=== PATIENT | female | born 1950 | race Caucasian/White ===

== ENCOUNTER 2023-09-09 13:49 | Inpatient (IN) ==
--- NOTE | 2023-09-09 14:30 | Emergency Department Note ---
Impression & Plan Pneumonia, Failure of outpatient treatment, KAVITA (acute kidney injury), Elevated troponin, Anemia ED Provider Note NAME: NATANAEL MONTESINOS AGE: 73 SEX: F : 1950 ARRIVES VIA: Walk-In INFORMANT: [Patient][family] ED PROVIDER(S): [Jordi Levin MD] CHIEF COMPLAINT: Illness HISTORY OF PRESENT ILLNESS: The patient is a 73-year-old female who has been sick for about 2 weeks with a cough and some fatigue. She feels somewhat short of breath. Patient had a cold at first but things now seem to have moved to her chest. 1 week ago, the patient went to a physician's office and was diagnosed with a potential pneumonia. She was placed on Augmentin. A few days ago, she saw her doctors office and was placed on Zithromax in addition to the Augmentin. She was referred to the ER as she is not improving. The patient does feel groggy and sleepy. She was confused a week ago. The patient had been wheezing as per the family, this seems to have resolved. There has been no fever. No abdominal pain or vomiting. No urinary complaints. The family believes she did have a urine sample done last week, this did not grow anything on culture PMHx/PSHx/Social Hx: See Below PHYSICAL EXAM: GENERAL: Patient is in no acute distress. HEENT: No acute trauma, normocephalic atraumatic, mucous membranes moist, no nasal congestion. NECK: No stridor, no adenopathy, no meningismus, trachea is midline. LUNGS: Crackles at the right base, no wheezing or respiratory distress. HEART: Without murmurs gallops or rubs, regular rate and rhythm. ABDOMEN: Soft, nontender, no peritonitis. EXTREMITIES: No cyanosis, full range of motion of all the joints without pain or difficulty. NEUROLOGIC: Oriented x 3, no acute motor or sensory deficits, no focal weakness. SKIN: No jaundice, no diaphoresis. DIFFERENTIAL DIAGNOSIS: Pneumonia, bronchitis, viral illness, dehydration, failed outpatient management, PE, among others. EMERGENCY DEPARTMENT PROCEDURES: MEDICAL DECISION MAKING: There is a mild leukocytosis, this could be consistent with infection. The patient was anemic. Platelet count was slightly high at 509. There was no coagulopathy. VBG did not show acidosis. Potassium was low at 3.3. Acute kidney injury was seen with a creatinine of 3.35. Some subtle liver enzyme elevations were seen although, the bilirubin was normal. ECG showed a sinus rhythm, LVH was seen. Cardiac enzyme testing x 1 was slightly elevated. This troponin elevation could be secondary to her dyspnea and renal failure or possibly, cardiac ischemia. Chest x-ray did not show pneumonia or CHF. Respiratory bio fire was completely negative. Chest CT does show patchy bilateral pneumonia. Abdominal and pelvis CT did not show any findings of acute urinary obstruction. Some cysts were seen in the kidneys. The patient received IV saline, 500 cc. She was given 2 g of IV cefepime as empiric antibiotic coverage. Patient presents with worsening symptoms despite Augmentin and Zithromax as an outpatient. She was found to have pneumonia on CT imaging. She appears also to have some acute kidney injury. There is an elevation to her cardiac troponin. Given her failed outpatient treatment, given her findings, hospitalization/further workup is warranted. Presently, she does not appear safe for discharge home. I spoke with the patient and case management, I spoke with her family. The on- call hospitalist was consulted. Prior/Outside records/notes reviewed: None ECG per my interpretation: Indication was weakness. The ECG shows a normal sinus rhythm with a rate of 76. There is some baseline artifact. LVH is seen. There is no acute ST elevation, no PVCs. The QTc is 443. Continuous Cardiac Monitoring per my interpretation: An order was placed for continuous cardiac monitoring. The monitor shows a rate of 76 with normal sinus rhythm. Imaging/x-ray results per my interpretation: Chest x-ray does not show mediastinal widening, obvious pneumonia or pneumothorax. Chronic Medical/Social conditions affecting care: Advanced age. Care/Management discussed with: Case management, the on-call hospitalist. Level of care consideration(s): After review of the information above and other included data: --I believe the patient requires escalation of care to admission DISPOSITION: Admission Past Med/Surg History Problem List Anemia (Acute) Elevated troponin (Acute) KAVITA (acute kidney injury) (Acute) Failure of outpatient treatment (Acute) Pneumonia (Acute) Medical History Depression Type 2 diabetes mellitus Surgical History No pertinent past surgical history Family History Other No pertinent family history Social History Smoking Status: Never smoker Preferred Language: Bulgarian Feels Safe at Home: Yes Allergies Allergies Allergy/AdvReac Type Severity Reaction Status Date / Time No Known Allergies Allergy Verified 09/09/23 15:55 Home Meds Home Medications Medication Instructions Recorded Confirmed aspirin 81 mg tablet,delayed 81 mg PO QAM 03/13/19 09/09/23 release cyanocobalamin (vitamin B-12) 500 500 mcg PO QAM 03/13/19 09/09/23 mcg tablet (Vitamin B-12) gabapentin 600 mg tablet 600 mg PO BID 03/13/19 09/09/23 insulin glargine U-300 conc 300 16 unit subcut QAM 03/13/19 09/09/23 unit/mL (3 mL) subcutaneous pen (Toujeo Max U-300 SoloStar) insulin lispro 100 unit/mL 18 unit subcut TIDM 03/13/19 09/09/23 subcutaneous pen (Humalog KwikPen (U-100) Insulin) acetaminophen 325 mg tablet 325 mg PO Q6H PRN Pain 09/09/23 09/09/23 (Tylenol) amlodipine 5 mg tablet 5 mg PO QPM 09/09/23 09/09/23 amoxicillin 500 mg-potassium 1 tab PO BID 09/09/23 09/09/23 clavulanate 125 mg tablet azithromycin 250 mg tablet 250 mg PO DAILY 09/09/23 09/09/23 cholecalciferol (vitamin D3) 125 125 mcg PO DAILY 09/09/23 09/09/23 mcg (5,000 unit) tablet (Vitamin D3) fluoxetine 40 mg capsule 40 mg PO QAM 09/09/23 09/09/23 fluticasone propionate 50 2 spray intranasal DAILY 09/09/23 09/09/23 mcg/actuation nasal spray,suspension omega-3 fatty acids 1,000 mg 1,000 mg PO QAM 09/09/23 09/09/23 capsule oxybutynin chloride 5 mg tablet 5 mg PO QAM 09/09/23 09/09/23 rosuvastatin 10 mg tablet 10 mg PO QPM 09/09/23 09/09/23 telmisartan 80 mg tablet 80 mg PO QAM 09/09/23 09/09/23 Results & Data (ED) Vital Signs Vital Signs - 24 hr 09/09/23 13:51 09/09/23 14:09 09/09/23 14:15 Temperature 36.5 C Temperature Source Temporal Artery Scan Pulse Rate 80 73 Pulse Rate [Apical] 71 Respiratory Rate 18 20 Respiratory Effort / Characteristics Non-Labored Spontaneous Non-Labored Spontaneous Respiratory Depth Normal Normal Respiratory Pattern Regular Blood Pressure 135/70 Blood Pressure [Right Arm] 132/72 Blood Pressure Mean 91 Blood Pressure Mean [Right Arm] 92 Blood Pressure Position [Right Arm] Lying Pulse Oximetry 94 94 Oxygen Delivery Method Room Air Room Air Sepsis Recent Fever Within 48 Hours No Sepsis New/Unexplained Change in Mental Status N/A Sepsis Action Taken by Nursing No Action Required 09/09/23 16:00 Temperature Temperature Source Pulse Rate Pulse Rate [Apical] 79 Respiratory Rate 20 Respiratory Effort / Characteristics Respiratory Depth Respiratory Pattern Blood Pressure Blood Pressure [Right Arm] 188/103 H Blood Pressure Mean Blood Pressure Mean [Right Arm] 131 Blood Pressure Position [Right Arm] Pulse Oximetry 93 Oxygen Delivery Method Room Air Sepsis Recent Fever Within 48 Hours Sepsis New/Unexplained Change in Mental Status Sepsis Action Taken by Prison Medications Current Medication List: was personally reviewed by me Laboratory Data Attestation: I reviewed the patient's lab results. 09/09/23 14:09 09/09/23 14:09 Lab Results 09/09/23 09/09/23 Range/Units 14:09 14:37 WBC 12.69 H (4.8-10.8) K/ul RBC 3.66 L (4.20-5.40) M/uL Hgb 10.6 L (12.0-16.0) g/dl Hct 33.0 L (37.0-47.0) % MCV 90.2 (80.0-100.0) fL MCH 29.0 (25.0-34.0) pg MCHC 32.1 (32.0-36.0) g/dL RDW Std Deviation 46.1 (36.4-46.3) fL RDW Coeff of Aure 13.9 (11.5-14.5) % Plt Count 509 H (130-400) K/uL MPV 8.6 L (9.4-12.4) fL Immature Gran % (Auto) 1.3 % Neut % (Auto) 82.7 % Lymph % (Auto) 9.1 % [place] % (Auto) 4.4 % Eos % (Auto) 2.0 % Baso % (Auto) 0.5 % Neut # (Auto) 10.50 H (1.40-6.50) K/uL Lymph # (Auto) 1.15 L (1.20-3.40) K/uL [place] # (Auto) 0.56 (0.11-0.59) K/uL Eos # (Auto) 0.25 (0.00-0.50) K/uL Baso # (Auto) 0.06 (0.00-0.20) K/uL Immature Gran # (Auto) 0.17 (0.01-0.20) K/uL PT 10.4 (9.0-12.0) Seconds INR 1.0 (0.9-1.1) APTT 27 (21-31) Seconds PTT Ratio 1.0 VBG pH 7.37 (7.36-7.41) VBG pCO2 44 (38-50) mmHg VBG pO2 42 mmHg VBG HCO3 25 mmol/L VBG O2 Saturation 79.5 % VBG Base Excess -0.2 mEq/L Sodium 137 (136-145) mmol/L Potassium 3.3 L (3.5-5.1) mmol/L Chloride 103 (98-107) mmol/L Carbon Dioxide 24 (21-32) mmol/L Anion Gap 10 (3-11) BUN 39 H (6-23) mg/dl Creatinine 3.35 H (0.6-1.2) mg/dl Est Cr Clr Drug Dosing Not Reportable Est GFR ( Amer) 14.9 ml/min Est GFR (Non-Af Amer) 12.9 ml/min BUN/Creatinine Ratio 11.6 (10-20) Glucose 157 H (70-99(Fasting)) mg/dl Calcium 8.8 (8.6-10.3) mg/dl Magnesium 1.9 (1.7-2.4) mg/dl Total Bilirubin 0.3 (0.2-1.0) mg/dl AST 40 H (13-39) U/L ALT 32 (7-52) U/L Alkaline Phosphatase 175 H (34-104) U/L Troponin I High Sens 94.8 H* (0-14) pg/ml Total Protein 6.6 (6.0-8.3) gm/dl Albumin 3.0 L (3.4-5.0) gm/dl Globulin 3.6 (2.5-4.0) gm/dl Albumin/Globulin Ratio 0.8 L (0.9-2) Adenovirus (PCR) Not Detected (NotDetected) B. pertussis DNA (PCR) Not Detected (NotDetected) B.parapertussis DNA PCR Not Detected (NotDetected) C. pneumoniae DNA (PCR) Not Detected (NotDetected) Coronavirus OC43 (PCR) Not Detected (NotDetected) Coronavirus HKU1 (PCR) Not Detected (NotDetected) Coronavirus 229E (PCR) Not Detected (NotDetected) SARS-CoV-2 (PCR) Not Detected (NotDetected) Coronavirus NL63 (PCR) Not Detected (NotDetected) Human Metapneumovir PCR Not Detected (NotDetected) Influenza Type A (PCR) Not Detected (NotDetected) Influenza Type B (PCR) Not Detected (NotDetected) M. pneumoniae (PCR) Not Detected (NotDetected) Parainfluenza 1 (PCR) Not Detected (NotDetected) Parainfluenza 2 (PCR) Not Detected (NotDetected) Parainfluenza 3 (PCR) Not Detected (NotDetected) Parainfluenza 4 (PCR) Not Detected (NotDetected) RSV (PCR) Not Detected (NotDetected) Entero/Rhino (PCR) Not Detected (NotDetected) Imaging Data Radiologist's Impression: Chest X-Ray 09/09/23 14:23 XR chest 1V portable HISTORY: Dyspnea COMPARISON: None. FINDINGS: The lungs are clear. Cardiac silhouette is normal in size. No pleural effusions. No pneumothorax. IMPRESSION: No acute process. ACT 112: Negative or not required by law. Electronically signed by: Mitchel Anna M.D. 09/09/2023 3:[address] 09/09/23 14:58 CT chest diagnostic wo con CT DOSE: 1486.66 mGy.cm HISTORY: Shortness of breath. TECHNIQUE: Multiaxial CT images of the chest were performed without contrast. A dose lowering technique was utilized adhering to the principles of ALARA. COMPARISON: None. FINDINGS: The central airways are patent. No pneumothorax. There is a trace left pleural effusion. There are small patchy airspace opacities within the bases of the bilateral lower lobes. This most pronounced within the left lower lobe. There are few additional scattered small groundglass and tree-in-bud nodular opacities within the lungs. Findings suggest a mild atypical/viral pneumonitis. Degenerative changes within the mid to lower thoracic spine. No acute fractures. The abdominal structures will be reported on the same day abdomen and pelvis CT. There is a small hiatus hernia. Otherwise, normal esophagus. The heart is normal in size. No pericardial effusion. No mediastinal or hilar lymphadenopathy. Mild calcified plaque within the normal caliber thoracic aorta. There are mild to moderate coronary artery calcifications noted. IMPRESSION: 1. Scattered bilateral airspace opacities most pronounced within the left lower lobe. This favors a mild atypical/viral pneumonitis. 3-[address] follow- up recommended to ensure resolution. 2. Trace left pleural effusion. 3. Small hiatus hernia. ACT 112: Positive. There are findings on this exam that require communication between the performing entity and the patient following Patient Test Result Information Act ([place] Act 112) guidelines. Electronically signed by: Mitchel Anna M.D. 09/09/2023 4:09 PM Abdomen/Pelvis CT 09/09/23 15:[address] WITHOUT CONTRAST CT DOSE: HISTORY: high creat, poss obstruction TECHNIQUE: Multiaxial CT images of the abdomen and pelvis were performed without contrast. A dose lowering technique was utilized adhering to the principles of ALARA. COMPARISON STUDY: None. FINDINGS: The lung bases will be reported on the same day chest CT. No pneumoperitoneum. No pneumatosis. No acute fractures identified. There is a small hiatus hernia. There is a tiny fat-containing umbilical hernia. The unenhanced liver, gallbladder, and spleen are unremarkable. There are few punctate calcifications within the pancreas. No CT evidence for acute pancreatitis. Mild nodular thickening of the adrenal glands. Calcified plaque within the normal caliber abdominal aorta. There is a 4 mm stone within the lower pole of the right kidney. No left renal calculi. No ureteral calculi. No hydronephrosis. Multiple bilateral renal hypo and hyperdense lesions are noted. These are incompletely characterized on this noncontrast study. These may represent a combination of simple and hyperdense cysts. However, a solid renal mass would be impossible to exclude on this noncontrast study. Dominant left renal lesion measures 5.5 cm. Dominant right renal lesion measures 4.1 cm. No retroperitoneal or pelvic lymphadenopathy. No pelvic free fluid. Normal bladder. Prior hysterectomy. Suboptimal evaluation for bowel pathology due to the lack of intravenous and oral contrast. However, there is no definite bowel wall thickening or obstruction. Colonic diverticulosis. No evidence for acute diverticulitis. Normal appendix. IMPRESSION: 1. Right-sided nephrolithiasis. No ureteral stones. No hydronephrosis. 2. No definite bowel wall thickening or obstruction. 3. Colonic diverticulosis. No evidence for acute diverticulitis. 4. The lung bases will be reported on the same day chest CT. 5. Multiple bilateral renal hypo and hyperdense lesions are noted. These are incompletely characterized on this noncontrast study. These may represent a combination of simple and hyperdense cysts. However, a solid renal mass would be impossible to exclude on this noncontrast study. Therefore, follow-up nonemergent renal ultrasound recommended for further evaluation. 6. Additional findings as described above. ACT 112: Positive. There are findings on this exam that require communication between the performing entity and the patient following Patient Test Result Information Act [place] Act 112) guidelines. Electronically signed by: Mtichel Anna M.D. 09/09/2023 4:16 PM Discharge Plan Visit Data Chief Complaint: Illness Stated Complaint: POSSIBLE PNEUMONIA, BACK PAIN, LETHARGIC ED Provider: Jordi Levin Discharge Problem: Pneumonia, Failure of outpatient treatment, KAVITA (acute kidney injury), Elevated troponin, Anemia Patient Disposition: Admitted As Inpatient Condition: Fair Forms Stand Alone Forms: [employer] Prescriptions Prescriptions: No Action gabapentin 600 mg tablet 600 mg PO BID aspirin 81 mg Tablet,Delayed Release (Dr/Ec) 81 mg PO QAM cyanocobalamin (vitamin B-12) [Vitamin B-12] 500 mcg Tablet 500 mcg PO QAM insulin lispro [Humalog KwikPen Insulin] 100 unit/mL insulin pen 18 unit SUBCUT TIDM insulin glargine U-300 conc [Toujeo Max U-300 SoloStar] 300 unit/mL (3 mL) insulin pen 16 unit SUBCUT QAM fluoxetine 40 mg capsule 40 mg PO QAM acetaminophen [Tylenol] 325 mg Tablet 325 mg PO Q6H PRN (Reason: Pain) omega-3 fatty acids 1,000 mg Capsule 1,000 mg PO QAM azithromycin 250 mg tablet 250 mg PO DAILY Rx Instructions: STARTED 09/07/23 FOR 5 DAYS. amlodipine 5 mg tablet 5 mg PO QPM telmisartan 80 mg tablet 80 mg PO QAM oxybutynin chloride 5 mg tablet 5 mg PO QAM fluticasone propionate [Flonase] 50 mcg/actuation [place],Suspension 2 spray INTRANASAL DAILY Rx Instructions: administer into each nostril amoxicillin-pot clavulanate 500-125 mg tablet 1 tab PO BID Rx Instructions: STARTED 09/02/23 FOR 10 DAYS rosuvastatin 10 mg tablet 10 mg PO QPM cholecalciferol (vitamin D3) [Vitamin D3] 125 mcg (5,000 unit) Tablet 125 mcg PO DAILY Referrals Referrals: Ghada Salazar MD [Primary Care Provider] - Discharge Problem: Pneumonia Qualifiers: Pneumonia type: due to unspecified organism Laterality: bilateral Lung location: unspecified part of lung Qualified Code(s): J18.9 - Pneumonia, unspecified organism Anemia Qualifiers: Anemia type: unspecified type Qualified Code(s): D64.9 - Anemia, unspecified
[2023-09-09 14:43] LABS: Basophils # (auto) 0.06 K/uL (0.00-0.20); Basophils % (auto) 0.5 %; Eosinophils # (auto) 0.25 K/uL (0.00-0.50); Hemoglobin 10.6 g/dl (12.0-16.0); Immature Granulocytes # (auto) 0.17 K/uL (0.01-0.20); Immature Granulocytes % (auto) 1.3 %; Lymphocytes # (auto) 1.15 K/uL (1.20-3.40); Lymphocytes % (auto) 9.1 %; Mean Corpuscular Hgb Conc 32.1 g/dL (32.0-36.0); Mean Corpuscular Volume 90.2 fL (80.0-100.0); Mean Platelet Volume 8.6 fL (9.4-12.4); Monocytes # (auto) 0.56 K/uL (0.11-0.59); Monocytes % (auto) 4.4 %; Neutrophils % (auto) 82.7 %; Platelet Count 509 K/uL (130-400); RDW Coefficient of Variation 13.9 % (11.5-14.5); RDW Standard Deviation 46.1 fL (36.4-46.3); Red Blood Count 3.66 M/uL (4.20-5.40); White Blood Count 12.69 K/ul (4.8-10.8)
[2023-09-09 14:47] LABS: Base Excess VBG -0.2 mEq/L; HCO3 VBG 25 mmol/L; Oxygen Saturation VBG 79.5 %; PCO2 VBG 44 mmHg (38-50); PO2 VBG 42 mmHg; pH VBG 7.37 (7.36-7.41)
[2023-09-09 14:50] LABS: Alanine Aminotransferase 32 U/L (7-52); Albumin Globulin Ratio 0.8 (0.9-2); Alkaline Phosphatase 175 U/L (34-104); Anion Gap 10 (3-11); Aspartate Aminotransferase 40 U/L (13-39); BUN Creatinine Ratio 11.6 (10-20); Bilirubin,Total 0.3 mg/dl (0.2-1.0); Blood Urea Nitrogen 39 mg/dl (6-23); Calcium 8.8 mg/dl (8.6-10.3); Carbon Dioxide 24 mmol/L (21-32); Chloride 103 mmol/L (98-107); Est GFR (African American) 14.9 ml/min; Est GFR (Non-African American) 12.9 ml/min; Globulin 3.6 gm/dl (2.5-4.0); Glucose 157 mg/dl (70-99(Fasting)); Magnesium 1.9 mg/dl (1.7-2.4); Potassium 3.3 mmol/L (3.5-5.1); Sodium 137 mmol/L (136-145); Total Protein 6.6 gm/dl (6.0-8.3)
[2023-09-09 15:04] LABS: Troponin I High Sensitivity 94.8 pg/ml (0-14)
[2023-09-09 15:10] LABS: Partial Thromboplastin Time 27 Seconds (21-31); Prothrombin Time 10.4 Seconds (9.0-12.0)
--- NOTE | 2023-09-09 15:40 | XRay Report ---
XR chest 1V portable HISTORY: Dyspnea COMPARISON: None. FINDINGS: The lungs are clear. Cardiac silhouette is normal in size. No pleural effusions. No pneumot horax. IMPRESSION: No acute process. ACT 112: Negative or not required by law. Electronically signed by: Mitchel Anna M.D. 09/09/2023 3:39 PM
[2023-09-09 15:42] LABS: Adenovirus PCR Not Detected (NotDetected); Bordetella parapertussis PCR Not Detected (NotDetected); Bordetella pertussis PCR Not Detected (NotDetected); Chlamydia pneumoniae PCR Not Detected (NotDetected); Coronavirus 229E PCR Not Detected (NotDetected); Coronavirus CoV-2 (COVID19)PCR Not Detected (NotDetected); Coronavirus HKU1 PCR Not Detected (NotDetected); Coronavirus NL63 PCR Not Detected (NotDetected); Coronavirus OC43PCR Not Detected (NotDetected); Human Metapneumovirus PCR Not Detected (NotDetected); Influenza A PCR Not Detected (NotDetected); Influenza B PCR Not Detected (NotDetected); Mycoplasma pneumoniae PCR Not Detected (NotDetected); Parainfluenza Virus 1 PCR Not Detected (NotDetected); Parainfluenza Virus 2 PCR Not Detected (NotDetected); Parainfluenza Virus 3 PCR Not Detected (NotDetected); Parainfluenza Virus 4 PCR Not Detected (NotDetected); Respiratory Syncytial VirusPCR Not Detected (NotDetected); Rhinovirus/Enterovirus PCR Not Detected (NotDetected)
--- NOTE | 2023-09-09 16:11 | CT Scan Report ---
CT chest diagnostic wo con CT DOSE: 1486.66 mGy.cm HISTORY: Shortness of breath. TECHNIQUE: Multiaxial CT images of the chest were performed without contrast. A dose lowering techni que was utilized adhering to the principles of ALARA. COMPARISON: None. FINDINGS: The central airways are patent. No pneumothorax. There is a trace left pleural effusion. Th ere are small patchy airspace opacities within the bases of the bilateral lower lobes. This most pron ounced within the left lower lobe. There are few additional scattered small groundglass and tree-in-b ud nodular opacities within the lungs. Findings suggest a mild atypical/viral pneumonitis. Degenerati ve changes within the mid to lower thoracic spine. No acute fractures. The abdominal structures will be reported on the same day abdomen and pelvis CT. There is a small hiatus hernia. Otherwise, normal esophagus. The heart is normal in size. No pericardial effusion. No mediastinal or hilar lymphadenopa thy. Mild calcified plaque within the normal caliber thoracic aorta. There are mild to moderate coron magy artery calcifications noted. IMPRESSION: 1. Scattered bilateral airspace opacities most pronounced within the left lower lobe. This favors a m ild atypical/viral pneumonitis. 3-[address] follow-up recommended to ensure resolution. 2. Trace left pleural effusion. 3. Small hiatus hernia. ACT 112: Positive. There are findings on this exam that require communication between the performing entity and the patient following Patient Test Result Information Act ([place] Act 112) guidelines. Electronically signed by: Mitchel Anna M.D. 09/09/2023 4:09 PM
--- NOTE | 2023-09-09 16:18 | CT Scan Report ---
ABDOMEN AND PELVIS CT WITHOUT CONTRAST CT DOSE: HISTORY: high creat, poss obstruction TECHNIQUE: Multiaxial CT images of the abdomen and pelvis were performed without contrast. A dose lo wering technique was utilized adhering to the principles of ALARA. COMPARISON STUDY: None. FINDINGS: The lung bases will be reported on the same day chest CT. No pneumoperitoneum. No pneumatos is. No acute fractures identified. There is a small hiatus hernia. There is a tiny fat-containing umb ilical hernia. The unenhanced liver, gallbladder, and spleen are unremarkable. There are few punctate calcifications within the pancreas. No CT evidence for acute pancreatitis. Mild nodular thickening o f the adrenal glands. Calcified plaque within the normal caliber abdominal aorta. There is a 4 mm sto ne within the lower pole of the right kidney. No left renal calculi. No ureteral calculi. No hydronep hrosis. Multiple bilateral renal hypo and hyperdense lesions are noted. These are incompletely charac terized on this noncontrast study. These may represent a combination of simple and hyperdense cysts. However, a solid renal mass would be impossible to exclude on this noncontrast study. Dominant left r enal lesion measures 5.5 cm. Dominant right renal lesion measures 4.1 cm. No retroperitoneal or pelvi c lymphadenopathy. No pelvic free fluid. Normal bladder. Prior hysterectomy. Suboptimal evaluation fo r bowel pathology due to the lack of intravenous and oral contrast. However, there is no definite bow el wall thickening or obstruction. Colonic diverticulosis. No evidence for acute diverticulitis. Norm al appendix. IMPRESSION: 1. Right-sided nephrolithiasis. No ureteral stones. No hydronephrosis. 2. No definite bowel wall thickening or obstruction. 3. Colonic diverticulosis. No evidence for acute diverticulitis. 4. The lung bases will be reported on the same day chest CT. 5. Multiple bilateral renal hypo and hyperdense lesions are noted. These are incompletely characteriz ed on this noncontrast study. These may represent a combination of simple and hyperdense cysts. Howev er, a solid renal mass would be impossible to exclude on this noncontrast study. Therefore, follow-up nonemergent renal ultrasound recommended for further evaluation. 6. Additional findings as described above. ACT 112: Positive. There are findings on this exam that require communication between the performing entity and the patient following Patient Test Result [place] Act [place] Act 112) guidelines. Electronically signed by: Mitchel Anna M.D. 09/09/2023 4:16 PM
--- NOTE | 2023-09-09 17:21 | History & Physical Report ---
Date of Service September 09, 2023 Assessment & Plan (1) Pneumonia: Plan: This is a 73-year-old female with PMH of type 2 diabetes, dyslipidemia, BMI of 40, CKD stage IV, major depressive disorder, vertigo and other medical problems listed below who presents with ongoing shortness of breath x 2 weeks with pneumonia diagnosed in outpatient setting that has failed outpatient treatment. Cough and congestion x 3 weeks Started on Augmentin 09/01, azythromycin added 09/06, continues to feel fatigued with cough Afebrile, WBC 12K, procal neg, resp viral panel negative, MRSA swab pending CT abd/pelvis with scattered bilateral airspace opacities most pronounced within the left lower lobe. This favors a mild atypical/viral pneumonitis. 3-[address] follow-up recommended to ensure resolution Continue cefepime, doxy Mucinex BID, flutter valve (2) Acute kidney injury superimposed on CKD: Plan: Cr 3.35 (baseline ~ 2.0) Recent outpatient UA from 09/05 with >300 mg/dl protein, trace blood. Albumin/Cr ratio 2,270, Protein/Cr ratio 4,057 Given gentle fluids in ED, poor PO intake while sick Follows with Dr. Tovar in clinic Nephrology consulted (3) Hypertensive urgency: Plan: BP initially normal, slowly elevating in ED with 188/95 - admittedly nervous in ED. Will give evening dose of amlodipine 5mg, add PRN IV hydralazine. Continue to monitor closely (4) Elevated troponin: Plan: Troponin 94.8 -> 90. Will repeat again Likely 2/2 elevated BP as above, CKD 2D echo ordered (5) Type 2 diabetes mellitus: Plan: A1c 7.6 Hold home agents Basal/bolus insulin while in-patient BSG AC HS (6) Depression: Plan: Continue fluoxetine DVT Ppx: SQ heparin Code status: FULL PCP: Martin Dispo: Admitted to PCU Patient seen in collaboration with Dr. Pittman. Please see addendum. I spent a total of 75 minutes coordinating, documenting, and providing care for this patient excluding time spent in the performance of separately billed services. History of Present Illness Chief Complaint: Shortness of breath Primary Care Provider: Ghada Salazar MD This is a 73-year-old female with PMH of type 2 diabetes, dyslipidemia, BMI of 40, CKD stage IV, major depressive disorder, vertigo and other medical problems listed below who presents with ongoing shortness of breath x 2 weeks. Had been having productive cough and generalized weakness as well is some wheezing. Was seen in PCP office on 09/01 with cough and cold symptoms and was started on a 10- day course of Augmentin. Outpatient chest x-ray from 09/01 showed left basilar airspace opacities. Was seen again by PCP on 09/07/2023 with continued cough as well as some confusion. Azithromycin was added for better atypical coverage. Patient was then noted to be confused and directed to come to ED for further evaluation. Daughter notes she is groggy. Also noting some pain in her back. Chronic hip pain over the past few months and was seen by ortho for a cortisone shot. Has followed with Dr. Tovar for nephrology back in Jan 2023 and is due to see again in September. Baseline Cr ~ 2. 1. No F/C, lightheadedness, CP, N/V, abd pain, dysuria, diarrhea or constipation. Allergies Allergy/AdvReac Type Severity Reaction Status Date / Time No Known Allergies Allergy Verified 09/09/23 15:55 Home Medications Medication Instructions Recorded Confirmed Type aspirin 81 mg tablet,delayed 81 mg PO QAM 03/13/19 09/09/23 History release cyanocobalamin (vitamin B-12) 500 500 mcg PO QAM 03/13/19 09/09/23 History mcg tablet (Vitamin B-12) gabapentin 600 mg tablet 600 mg PO BID 03/13/19 09/09/23 History insulin glargine U-300 conc 300 16 unit subcut QAM 03/13/19 09/09/23 History unit/mL (3 mL) subcutaneous pen (Toujeo Max U-300 SoloStar) insulin lispro 100 unit/mL 18 unit subcut TIDM 03/13/19 09/09/23 History subcutaneous pen (Humalog KwikPen (U-100) Insulin) acetaminophen 325 mg tablet 325 mg PO Q6H PRN Pain 09/09/23 09/09/23 History (Tylenol) amlodipine 5 mg tablet 5 mg PO QPM 09/09/23 09/09/23 History amoxicillin 500 mg-potassium 1 tab PO BID 09/09/23 09/09/23 History clavulanate 125 mg tablet azithromycin 250 mg tablet 250 mg PO DAILY 09/09/23 09/09/23 History cholecalciferol (vitamin D3) 125 125 mcg PO DAILY 09/09/23 09/09/23 History mcg (5,000 unit) tablet (Vitamin D3) fluoxetine 40 mg capsule 40 mg PO QAM 09/09/23 09/09/23 History fluticasone propionate 50 2 spray intranasal DAILY 09/09/23 09/09/23 History mcg/actuation nasal spray,suspension omega-3 fatty acids 1,000 mg 1,000 mg PO QAM 09/09/23 09/09/23 History capsule oxybutynin chloride 5 mg tablet 5 mg PO QAM 09/09/23 09/09/23 History rosuvastatin 10 mg tablet 10 mg PO QPM 09/09/23 09/09/23 History telmisartan 80 mg tablet 80 mg PO QAM 09/09/23 09/09/23 History Past Med/Surg History Problem List Hypertensive urgency Depression Type 2 diabetes mellitus Acute kidney injury superimposed on CKD Anemia (Acute) Elevated troponin (Acute) Failure of outpatient treatment (Acute) Pneumonia (Acute) Surgical History History of nasal surgery Family History Other Breast cancer No pertinent family history Social History Smoking Status: Never smoker Second Hand Exposure: No; Do You Dip or Chew Tobacco: No; Tobacco Cessation Education Requested by Patient: No Hx Alcohol Use: No Hx Substance Use: No Preferred Language: Greenlandic Communication Ability: Effective Compressor Repairer Required: No Beliefs That Will Affect Care: None Current Living Situation: Alone Current Living Situation Comment: Lives at home alone - has assitance with a home health aid and daughter Other Information That Helps Us Care for You: No Feels Safe at Home: Yes Safety Concerns: Feels Safe At This Time Review of Systems Review of Systems: At least ten systems reviewed and negative except as noted in the HPI. Physical Exam Physical Exam: Please see Dr. Pittman's addendum for physical exam. Results & Data Results & Data Vital Signs (Past 12 Hours) Vital Signs Temp Pulse Pulse Resp BP BP Pulse Ox 09/09/23 16:00 79 20 188/103 H 93 09/09/23 14:15 73 09/09/23 14:09 71 20 132/72 94 09/09/23 13:51 36.5 C 80 18 135/70 94 O2 Del Method 09/09/23 16:00 Room Air 09/09/23 14:15 09/09/23 14:09 Room Air 09/09/23 13:51 Room Air Laboratory Results Short CBC 09/09/23 Range/Units 14:09 WBC 12.69 H (4.8-10.8) K/ul Hgb 10.6 L (12.0-16.0) g/dl Hct 33.0 L (37.0-47.0) % Plt Count 509 H (130-400) K/uL BMP 09/09/23 14:09 Sodium 137 Potassium 3.3 L Chloride 103 Carbon Dioxide 24 BUN 39 H Creatinine 3.35 H Glucose 157 H Calcium 8.8 Liver Function 09/09/23 Range/Units 14:09 Total Bilirubin 0.3 (0.2-1.0) mg/dl AST 40 H (13-39) U/L ALT 32 (7-52) U/L Alkaline Phosphatase 175 H (34-104) U/L Albumin 3.0 L (3.4-5.0) gm/dl Diagnostic Findings Chest X-Ray 09/09/23 14:23 XR chest 1V portable HISTORY: Dyspnea COMPARISON: None. FINDINGS: The lungs are clear. Cardiac silhouette is normal in size. No pleural effusions. No pneumothorax. IMPRESSION: No acute process. ACT 112: Negative or not required by law. Electronically signed by: Mitchel Anna M.D. 09/09/2023 3:[address] 09/09/23 14:58 CT chest diagnostic wo con CT DOSE: 1486.66 mGy.cm HISTORY: Shortness of breath. TECHNIQUE: Multiaxial CT images of the chest were performed without contrast. A dose lowering technique was utilized adhering to the principles of ALARA. COMPARISON: None. FINDINGS: The central airways are patent. No pneumothorax. There is a trace left pleural effusion. There are small patchy airspace opacities within the bases of the bilateral lower lobes. This most pronounced within the left lower lobe. There are few additional scattered small groundglass and tree-in-bud nodular opacities within the lungs. Findings suggest a mild atypical/viral pneumonitis. Degenerative changes within the mid to lower thoracic spine. No acute fractures. The abdominal structures will be reported on the same day abdomen and pelvis CT. There is a small hiatus hernia. Otherwise, normal esophagus. The heart is normal in size. No pericardial effusion. No mediastinal or hilar lymphadenopathy. Mild calcified plaque within the normal caliber thoracic aorta. There are mild to moderate coronary artery calcifications noted. IMPRESSION: 1. Scattered bilateral airspace opacities most pronounced within the left lower lobe. This favors a mild atypical/viral pneumonitis. 3-[address] follow- up recommended to ensure resolution. 2. Trace left pleural effusion. 3. Small hiatus hernia. ACT 112: Positive. There are findings on this exam that require communication between the performing entity and the patient following Patient Test Result Information Act ([place] Act 112) guidelines. Electronically signed by: Mitchel Anna M.D. 09/09/2023 4:09 PM Abdomen/Pelvis CT 09/09/23 15:[address] WITHOUT CONTRAST CT DOSE: HISTORY: high creat, poss obstruction TECHNIQUE: Multiaxial CT images of the abdomen and pelvis were performed without contrast. A dose lowering technique was utilized adhering to the principles of ALARA. COMPARISON STUDY: None. FINDINGS: The lung bases will be reported on the same day chest CT. No pneumoperitoneum. No pneumatosis. No acute fractures identified. There is a small hiatus hernia. There is a tiny fat-containing umbilical hernia. The unenhanced liver, gallbladder, and spleen are unremarkable. There are few punctate calcifications within the pancreas. No CT evidence for acute pancreatitis. Mild nodular thickening of the adrenal glands. Calcified plaque within the normal caliber abdominal aorta. There is a 4 mm stone within the lower pole of the right kidney. No left renal calculi. No ureteral calculi. No hydronephrosis. Multiple bilateral renal hypo and hyperdense lesions are noted. These are incompletely characterized on this noncontrast study. These may represent a combination of simple and hyperdense cysts. However, a solid renal mass would be impossible to exclude on this noncontrast study. Dominant left renal lesion measures 5.5 cm. Dominant right renal lesion measures 4.1 cm. No retroperitoneal or pelvic lymphadenopathy. No pelvic free fluid. Normal bladder. Prior hysterectomy. Suboptimal evaluation for bowel pathology due to the lack of intravenous and oral contrast. However, there is no definite bowel wall thickening or obstruction. Colonic diverticulosis. No evidence for acute diverticulitis. Normal appendix. IMPRESSION: 1. Right-sided nephrolithiasis. No ureteral stones. No hydronephrosis. 2. No definite bowel wall thickening or obstruction. 3. Colonic diverticulosis. No evidence for acute diverticulitis. 4. The lung bases will be reported on the same day chest CT. 5. Multiple bilateral renal hypo and hyperdense lesions are noted. These are incompletely characterized on this noncontrast study. These may represent a combination of simple and hyperdense cysts. However, a solid renal mass would be impossible to exclude on this noncontrast study. Therefore, follow-up nonemergent renal ultrasound recommended for further evaluation. 6. Additional findings as described above. ACT 112: Positive. There are findings on this exam that require communication between the performing entity and the patient following Patient Test Result Information Act ([place] Act 112) guidelines. Electronically signed by: Mitcehl Anna M.D. 09/09/2023 4:16 PM Supervising Physician Co-Signing Physician Notes Pt seen and examined by hi, care coordinated w/ Mesha Bergman PA-C, pls see her note for further detail. Pt is a 73 yo F with type 2 diabetes, dyslipidemia, BMI of 40, CKD stage IV, major depressive disorder, vertigo who presents with ongoing shortness of breath x 2 weeks. Had been having productive cough and generalized weakness as well is some wheezing. Was treated with augmentin and recently started azithromycin. She was also found to have KAVITA on CKD, with Cr 3.3 and hypertensive in ED. Pt has followed with Dr. Tovar for nephrology back in Jan 2023 and is due to see again in September. Baseline Cr ~ 2. 1. Currently pt is laying in bed in NAD. Pt's daughter is present at the bedside. Pt is awake, alert, able to answer simple questions appropriately. Lungs are CTAB, heart sounds regular, abdomen soft, obese, nontender to palp. No LE edema. Skin is warm and dry. Changed abx to cefepime and doxy. Will further discuss pt's renal function w/ nephrology. Hydralazine prn for hypertension. Cont. to closely monitor. MD Zain (1) Pneumonia Laterality: bilateral Lung location: unspecified part of lung Pneumonia type: due to unspecified organism Qualified Code(s): J18.9 - Pneumonia, unspecified organism
[2023-09-09] MEDS: guaiFENesin 600 MG TABCR PO SCH (17:34)
[2023-09-09] MEDS: SODIUM CHLORIDE 0.9% 500 ML IV ONE (17:34)
[2023-09-09] MEDS: CEFEPIME 2,000 MG/20 ML VIAL IV STA (18:10)
[2023-09-09] MEDS: amLODIPine BESYLATE 5 MG TAB PO ONE (18:10)
[2023-09-09] MEDS ORDERED: GLUCAGON FOR INJ 1 MG VIAL SQ PRN (18:12)
[2023-09-09] MEDS ORDERED: CARBOHYDRATES FOR HYPOGLYCEMIA PO PRN (18:12)
[2023-09-09] MEDS ORDERED: GLUCOSE 40% GEL 15 GM TUBE PO PRN (18:12)
[2023-09-09] MEDS ORDERED: GLUCOSE 10 TAB/TUBE PO PRN (18:12)
[2023-09-09] MEDS ORDERED: DEXTROSE 50% 50 ML SYRINGE IV PRN (18:12)
[2023-09-09] MEDS: SODIUM CHLORIDE 0.9% 1,000 ML IV SCH (18:12)
[2023-09-09] MEDS: INSULIN ASPART PER UNIT CHARGE SC SCH (18:39)
[2023-09-09] MEDS: hydrALAZINE HCL 20 MG/ML VIAL IV PRN (18:59)
[2023-09-09] MEDS ORDERED: POLYETHYLENE (MIRALAX) 17 GM PACK PO PRN (19:14)
[2023-09-09 19:57] LABS: Appearance Urine Clear (Clear); Bacteria Urine Automated None Seen (None Seen); Bilirubin Urine Negative (Negative); Blood Urine Negative (Negative); Color Urine Yellow; Epithelial Cell Urine Auto 0-2 /hpf (0-2); Glucose Urine UA 1+ (Negative); Ketones Urine Negative (Negative); Leukocyte Esterase Urine Negative (Negative); Nitrite Urine Negative (Negative); Protein Urine 3+ (Negative); RBC Urine Automated 0-2 /hpf (0-2); Specific Gravity Urine 1.014 (1.000-1.030); Urobilinogen Urine Negative (Negative); WBC Urine Automated 0-5 /hpf (0-5)
[2023-09-09] MEDS: DOXYCYCLINE HYCLATE 100 MG in DEXTROSE 5% MINI-B 100 ML IV SCH (20:26)
[2023-09-09] MEDS: GABAPENTIN 300 MG CAP PO SCH (20:26)
[2023-09-09] MEDS: HEPARIN SOD 5,000 UNIT/0.5 ML VIAL SQ SCH (20:27)
[2023-09-09] MEDS: ROSUVASTATIN CALCIUM 10 MG TAB PO SCH (20:27)
[2023-09-09] MEDS: LANTUS PER UNIT CHARGE SQ SCH (20:33)
[2023-09-09] MEDS: POTASSIUM CHLORIDE CRTAB 20 MEQ TABCR PO STA (22:20)
--- OUTSIDE RECORDS SUMMARY | 2023-09-09 23:40 | External Medical Summary | Summary of Care ---
Author Name Unknown Organization [facility] Address [address] [address] Phone [phone] Care Team Providers Care Mysql Database Administrator Name Role Phone Ghada Salazar MD Primary Care Provider Reason for Visit * Reason Onset Date Comments Medication Question 09/08/2023 Encounter Details Date Type Department Care Team (Late st Contact Info) Description 09/08/2023 Telephone Family Practice [facility] [address] [place] [address] Ghada Salazar MD [address] [place] [address] Medication Question Allergies No known active allergiesdocumented as of this encounter (statuses as of 09/08/2023) Medications Medication Sig Dispensed Refills Start Date End Date Status Aspirin EC 81 MG Oral Tablet Delayed ReleaseIndications: Type 2 diabetes mellitus with hemoglobin A1c goal of less than 7.0% ([facility]) Take 1 Tablet by mouth in the morning. Active B-12 500 MCG Oral TabletIndications:B 12 deficiency Take by mouth . Active D3 5000 125 MCG (5000 UT) Oral Capsule (Cholecalciferol)In dications:Vitamin D deficiency Take 1 Capsule by mouth in the morning. Active Acetaminophen 325 MG Oral Tablet Take 1 Tablet by mouth every 6 hours as needed for Pain, Moderate. Active Toujeo Max SoloStar 300 UNIT/ML Subcutaneous Solution Pen-injector (Insulin Glargine (2 Unit Dial))Indications:T ype 2 diabetes mellitus with hemoglobin A1c goal of less than 7.0% ([facility]) Inject 16 Units under the skin every morning. 15 mL 3 04/28/2022 Active Additional Information Patient taking differently:16 Units SubcutaneousDaily(Non-Specified), Indications: in afternoon, Reported on 06/02/2023 Fish Oil 1000 MG Oral Capsule Delayed Release Take 1 Capsule by mouth in the morning. Active Cetirizine HCl 10 MG Oral Tablet Chewable (ZyrTEC)Indications :as needed Take 1 Tablet by mouth in the morning. Active oxyBUTYnin Chloride 5 MG Oral Tablet (Ditropan)Indicatio ns:Overactive bladder TAKE 1 TABLET BY MOUTH EVERY DAY IN THE MORNING 90 Tablet 3 05/05/2023 Active Rosuvastatin Calcium 10 MG Oral Tablet (Crestor)Indication s:Dyslipidemia, goal LDL below 100 Take 1 Tablet by mouth every evening. 90 Tablet 1 05/10/2023 Active Fluticasone Propionate 50 MCG/ACT Nasal Suspension (Flonase)Indication s:Post-nasal drip Administer 2 Sprays into each nostril in the morning. 9.9 mL 3 05/29/2023 Active Additional Information Patient taking differently:2 [place] Each Nostril Daily(AM),Indications: as needed, Reported on 06/02/2023 Assure ID Duo Pro Pen [place] 31G X 5 MM (Insulin Pen Needle) Use pen needles for insulin injection three times daily E11.9 300 Each 3 06/16/2023 Active amLODIPine Besylate 5 MG Oral Tablet (Norvasc)Indication s:HTN, goal below 130/80 Take 1 Tablet by mouth in the morning. 30 Tablet 11 06/29/2023 Active Gabapentin 600 MG Oral Tablet (Neurontin) Take 1 Tablet by mouth in the morning and 1 Tablet before bedtime. 60 Tablet 5 06/29/2023 Active Telmisartan 80 MG Oral Tablet (Micardis)Indicatio ns:HTN, goal below 130/80 TAKE 1 TABLET BY MOUTH EVERY DAY IN THE MORNING 90 Tablet 1 06/29/2023 Active HumaLOG KwikPen 100 UNIT/ML Subcutaneous Solution Pen-injector Inject 18 Units under the skin in the morning and 18 Units at noon and 18 Units in the evening. Inject with meals. 15 mL 3 07/17/2023 Active FLUoxetine HCl 40 MG Oral Capsule (PROzac) Take 1 Capsule by mouth in the morning. 30 Capsule 2 07/27/2023 Active Amoxicillin-Pot Clavulanate 500-125 MG Oral Tablet (Augmentin)Indicati ons:Community acquired pneumonia of right lower lobe of lung Take 1 Tablet by mouth in the morning and 1 Tablet before bedtime. Do all this for 10 days. 20 Tablet 09/02/2023 09/12/2023 Active Azithromycin 250 MG Oral Tablet (Zithromax Z-Evens)Indications:P neumonia of left lower lobe due to infectious organism Take two tablets by mouth on first day, then 1 tablet daily until gone 6 Tablet 09/07/2023 Active documented as of this encounter (statuses as of 09/08/2023) Active Problems Problem Noted Date Diagnosed Date Major depressive disorder, single episode, moder ate 05/29/2023 Vertigo 09/20/2022 Double vision with both eyes open 09/20/2022 Nystagmus 09/20/2022 Body mass index (BMI) of 40.0 to 44.9 in adult 0 06/27/2022 Overview: Per Obesity protocol CKD (chronic kidney disease) stage 4, GFR 15-29 ml/min 05/20/2022 Type 2 diabetes mellitus wit h hemoglobin A1c goal of less than 7.0% 02/09/2022 Vitamin D deficiency 02/09/2022 Dyslipidemia, goal LDL below 100 02/09/2022 Severe episode of recurrent major depressive dis order 02/09/2022 documented as of this encounter (statuses as of 09/08/2023) Resolved Problems Problem Noted Date Diagnosed Date Resolved Date Stage 3b chronic kidney disease (CKD) 02/09/2022 05/20/2022 Diabetic retinopathy associa nasra with type 2 diabetes mellitus 02/09/2022 05/20/2022 documented as of this encounter (statuses as of 09/08/2023) Immunizations Name Administration Dates Next Due COVID-19 mRNA, LNP-s, No Pre serve, 2-Dose Series (Second Wind) 02/01/2021,07/09/2020,06/16/2020 COVID-19, LNP-s, No Preserve , Perfecto-sucrose, Ages 12+ (Second Wind) 07/05/2023,11/01/2021 Covid-19, Mrna, Lnp-s, Pf, B ivalent, 30 Mcg, IM, 12 yrs and above (Pfizer) 10/06/2022,01/06/2022 HEP A - Hepatitis A (Adult > 18 yrs) 04/17/1998 Pneumococcal Conjugate Vacc, 13 Valent (Prevnar) 01/30/2017,06/14/2006,02/19/2002 Pneumococcal Polysaccharide PPV23 (Pneumovax) 01/25/2021 Seasonal Influenza Virus Vac cine, Unspecified Formulation 12/17/2021,01/25/2021 TDAP (age 10 and older)(Boostrix) 12/31/2019, Zoster Vaccine Recombinant (Shingrix) 06/07/2018 ,03/30/2018 documented as of this encounter Social History Tobacco Use Types Packs/Day Years Used Date Smoking Tobacco: Never Smokeless Tobacco: Never Alcohol Use Standard Drinks/Week Comments Yes 0 (1 standard drink = 0.6 oz pur e alcohol) rarely PHQ-2 Answer Date Recorded PHQ Adult Total Score 2 09/07/2023 Hunger Vital Sign Answer Date Recorded Within the past 12 months, y ou worried that your food would run out before you got the money to buy more. Never true 09/07/19 24 Within the past 12 months, t he food you bought just didn't last and you didn't have money to get more. Never true 09/07/2023 Sex and Gender Information Value Date Recorded Sex Assigned at Not on file Gender Identity Not on file Sexual Orientation Not on file Job Start Date Occupation Industry Not on file Not on file Not on file documented as of this encounter Miscellaneous Notes * Telephone Encounter - Kristy Rooney MED ASSIST - 09/08/2023 12:39 PM EDT Patient's daughter informed. * Telephone Encounter - Ghada Salazar MD - 09/08/2023 12:32 PM EDT Yes, take both antibiotics. Might take 24-48 hrs to see clinical improvement. If Tasha is acutely confused and slurring her speech she needs to go to the ED. * Telephone Encounter - Stephanie Marr RPh - 09/08/2023 12:16 PM EDT Pt daughter calling regarding antibiotics Azithromycin was started in addition to Augmentin for pneumonia. Had urine culture resulted and shows no growth. Daughter stated no urinary symptoms. Still taking both antibiotics but not feeling any better. Still having confusion and grogginess. Speech seems slurred at times and complaining of back hurting Daughter concerned about kidney function and asking if you think she should do something more. Thanks, Stephanie Marr PharmD Clinical Pharmacist [facility] (formerly [facility]) [phone] 09/08/2023 12:23 PM * Telephone Encounter - Corazon Haas PHARM Tech - 09/08/2023 12:11 PM EDT Pt's ec called asking if she is to stop the Augmentin being that yesterday Azithromycin was prescribed, was transferred to Jayla Baca Thank you, Corazon Haas CPhT Purchasing Officer II [facility] ([facility] ([facility]) 09/08/2023,12:13 PM documented in this encounter Plan of Treatment Upcoming Encounters Date Type Department Care Team (Late st Contact Info) Description 09/12/2023 2:40 PM EDT [facility] [address] [place] [address] [facility] [address] [place] [address] 09/21/2023 2:00 PM EDT Office Visit Nephrology, Alber D[address] [place] [address] Juan Tovar MD [address] [place] [address] 09/21/2023 3:30 PM EDT Telemedicine Psychiatry, [facility] [address] [place] [address] Filemon Medina CRNP [address] [place] [address] 09/22/2023 3:45 PM EDT Telemedicine Orthopaedics [facility] [address] [place] [address] Zia Monsalve MD [address] [place] [address] 09/26/2023 1:30 PM EDT Office Visit Orthopaedics [facility] [address] [place] [address] Zia Monsalve MD [address] [place] [address] 09/27/2023 2:30 PM EDT [facility] [address] [place] [address] 10/10/2023 1:30 PM EDT Office Visit Interventional Pain Center, [facility] [address] [place] [address] Edgar Forde DO [address] [place] [address] 12/28/2023 3:20 PM EDT Office Visit Family Practice [facility] [address] [place] [address] Ghada Salazar MD [address] [place] [address] 02/13/2024 10:40 AM EDT Office Visit Sleep Disorders Ctr [facility] [address] [place] [phone] Sofia Romo, [address] [place] [address] Health Maintenance Due Date Last Done Comments Cologuard 1994 Colonoscopy 1994 Colorectal Cancer Screening 1994 Fecal Occult Blood Test 1994 Sigmoidoscopy 1994 Diabetic Foot Exam 05/20/2023 05/20/2022 COVID-19 Vaccine ( season) 2023 07/05/2023, 10/06/2022, 01/06/2022, Additional history exists PTH 09/23/2023 09/22/2022, 02/18/2022 GFR 12/13/2023 06/14/2023, 12/16, 09/22/2022, Additional history exists HbA1c 12/13/2023 06/14/2023, 06/0 09/2022, 05/20/2022, Additional history exists Influenza Vaccine (FLU shot) (Season Ended) 2023 12/17/2021, 01/25/2021 Hgb 12/30/2023 12/29/2022, 06/0 11/2022, 09/20/2022, Additional history exists Phosphate 12/30/2023 12/29/2022, 06/0 11/2022, 02/18/2022 Nephrology Referral 01/20/2024 01/19/2023 Diabetic Eye Exam 03/02/2024 03/02/2023, 02/10/2022 Mammogram 03/29/2024 03/29/2023, 05/2021, 08/28/2013 Albumin/Creatinine Ratio 09/05/2024 09/06/2023, 07/2021 Lipid Panel 06/14/2028 06/14/2023, 06/2022, 01/25/2021 DTaP,Tdap,and Td Vaccines (3 - Td or Tdap) 12/30/2029 12/31/2019, 01/14/2009 DXA Scan 03/19/2031 03/19/2021 Zoster Vaccines Completed 06/07/2018, 03/30/2018 Pneumococcal Vaccine: 65+ Years Completed 01/25/2021, 01/30/2017, 06/14/2006, Additional history exists GARDASIL-HPV IMMUNIZATION SERIES Aged Out No longer eligible based on patient's age to complete this topic Hepatitis B Aged Out No longer eligi ble based on patient's age to complete this topic MENINGOCOCCAL (MENACTRA/MENVEO) Aged Out No longer eligible based on patient's age to complete this topic documented as of this encounter Medical Devices Implanted Type Area Biometric Fingerprinting Technician Device Identifier Shelf Expiration Date Model / Serial / Lot Mometasone Furoate Implant Min - [id number] Implanted:Qty: 1 on 07/18/2023 by Pat Umaña MD at OR [facility] Right: Nose Orthocon[employer] 05/03/2024 [id number] / / [id number] documented as of this encounter Care Teams Mysql Database Administrator Relationship Specialty Start Date End Date Ghada Salazar MD [address] [place] [address] PCP - General Internal Medicine 04/04/22 documented as of this encounter
--- OUTSIDE RECORDS SUMMARY | 2023-09-09 23:40 | External Medical Summary | Summary of Care ---
Author Name Unknown Organization [facility] Address [address] [place] [address] Phone [phone] Care Team Providers Care Door Clamp Operator Name Role Phone Ghada Salazar MD Primary Care Provider Reason for Visit * Reason Comments Outpatient Testing Encounter Details Date Type Department Care Team (Late st Contact Info) Description 09/06/2023 2:10 PM EDT Laboratory Laboratory [facility] [address] [facility] [place] [address] Pod3, Specimen Drop Off [facility] [address] [place] [address] HTN, goal below 130/80; Generalized weakness Allergies No known active allergiesdocumented as of this encounter (statuses as of 09/06/2023) Medications Medication Sig Dispensed Refills Start Date End Date Status Aspirin EC 81 MG Oral Tablet Delayed ReleaseIndications: Type 2 diabetes mellitus with hemoglobin A1c goal of less than 7.0% ([facility]) Take 1 Tablet by mouth in the [...] hemoglobin A1c goal of less than 7.0% ([facility]) Inject 16 Units under the skin every [...] 05/29/2023 Active Additional Information Patient taking differently:2 [place] Each Nostril Daily(AM),Indications: as needed, Reported on 06/02/2023 Assure ID Duo Pro Pen [place] 31G X 5 MM (Insulin Pen Needle) [...] 10 days. 20 Tablet 09/02/2023 09/12/2023 Active documented as of this encounter (statuses as of 09/06/2023) Active Problems Problem Noted Date Diagnosed Date [...] as of this encounter (statuses as of 09/06/2023) Resolved Problems Problem Noted Date Diagnosed Date Resolved Date Stage 3b chronic kidney disease (CKD) 02/09/2022 05/20/2022 Diabetic retinopathy associa nasra with type 2 diabetes mellitus 02/09/2022 05/20/2022 documented as of this encounter (statuses as of 09/06/2023) Immunizations Name Administration Dates Next Due COVID-19 mRNA, LNP-s, No Pre serve, 2-Dose Series (Use It Better) 02/01/2021,07/09/2020,06/16/2020 COVID-19, LNP-s, No Preserve , Perfecto-sucrose, Ages 12+ (Use It Better) 07/05/2023,11/01/2021 Covid-19, Mrna, Lnp-s, Pf, B ivalent, 30 Mcg, IM, 12 yrs and above (Use It Better) 10/06/2022,01/06/2022 HEP A - Hepatitis A (Adult [...] Answer Date Recorded PHQ Adult Total Score 1 02/09/2022 Hunger Vital Sign Answer Date Recorded Within the past 12 months, y ou worried that your food would run out before you got the money to buy more. Never true 02/10/20 22 Within the past 12 months, t he food you bought just didn't last and you didn't have money to get more. Never true 02/09/2022 Sex and Gender Information Value Date Recorded Sex Assigned at Not on file Gender Identity Not on file Sexual Orientation Not on file Job Start Date Occupation Industry Not on file Not on file Not on file documented as of this encounter Plan of Treatment Upcoming Encounters Date Type Department Care Team (Late st Contact Info) Description 09/07/2023 1:40 PM EDT Office Visit Family Practice [address] [place] [address] [place] [address] Ghada Salazar MD [address] [address] 09/12/2023 2:40 PM EDT Office Visit Pharmacy, [address] [place] [address] [address] [facility] [address] [place] [address] 09/21/2023 2:00 PM EDT Office Visit Nephrology, Alber Dang [facility] [address] [place] [address] Juan Tovar MD [address] [place] [address] 09/21/2023 3:30 PM EDT Telemedicine Psychiatry, [facility] [address] [place] [address] Filemon Medina CRNP [address] [place] [address] 09/22/2023 3:45 PM EDT Telemedicine Orthopaedics [facility] [address] [facility] [address] Zia Monsalve MD [address] [place] [address] 09/26/2023 1:30 PM EDT Office Visit Orthopaedics [facility] [address] [place] [address] Zia Monsalve MD [address] [place] [address] 09/27/2023 2:30 PM EDT Imaging Radiology [facility] 1st Floor, [place] [address] [place] [address] 10/10/2023 1:30 PM EDT Office Visit Interventional Pain Center, [facility] [address] [place] [address] Edgar Forde DO [address] [place] [phone] 12/28/2023 3:20 PM EDT Office Visit Family Practice [facility] [address] [place] [address] Ghada Salazar MD [address] [place] [address] 02/13/2024 10:40 AM EDT [facility] [address] [place] [address] Sofia Romo, [address] [place] [address] Pending Results Name Type Priority Associated Diagnoses Date /Time ALBUMIN / CREATININE RATIO, URINE Lab Routine HTN, goal below 130/80 09/06/2023 2:07 PM EDT URINALYSIS, REFLEX TO CULTURE (NOT FOR NEUTROPENIC PATIENTS) Lab Routine Generalized weakness 09/06/2023 2:07 PM EDT URINALYSIS, REFLEX TO CULTURE (CUP ONLY) Lab Routine Generalized weakness 09/06/2023 2:07 PM EDT URINALYSIS, REFLEX TO CULTURE Lab Routine Generalized weakness 09/06/2023 2:07 PM EDT Health Maintenance Due Date Last Done Comments Cologuard 1994 Colonoscopy 1994 Colorectal Cancer Screening 1994 Fecal Occult Blood Test 1994 Sigmoidoscopy 1994 Albumin/Creatinine Ratio 02/18/2023 02/18/2022 Diabetic Foot Exam 05/20/2023 05/20/2022 COVID-19 Vaccine ( season) 2023 07/05/2023, 10/06/2022, 01/06/2022, Additional history exists PTH 09/23/2023 09/22/2022, 02/18/2022 GFR 12/13/2023 06/14/2023, 12/16, 09/22/2022, Additional history exists HbA1c 12/13/2023 06/14/2023, 060 09/2022, 05/20/2022, Additional history exists Influenza Vaccine (FLU shot) (Season Ended) 2023 12/17/2021, 01/25/2021 Hgb 12/30/2023 12/29/2022, 060 11/2022, 09/20/2022, Additional history exists Phosphate 12/30/2023 12/29/2022, 11/2022, 02/18/2022 Nephrology Referral 01/20/2024 01/19/2023 Diabetic Eye Exam 03/02/2024 03/02/2023, 02/10/2022 Mammogram 03/29/2024 03/29/2023, 05/2021, 08/28/2013 Lipid Panel 06/14/2028 06/14/2023, 06/2022, 01/25/2021 DTaP,Tdap,and [...] this encounter Medical Devices Implanted Type Area Industrial Safety And Health Manager Device Identifier Shelf Expiration Date Model / Serial / Lot Mometasone Furoate Implant Min - [id number] Implanted:Qty: 1 on 07/18/2023 by Pat Umaña MD at OR [facility] Right: Nose [employer] 05/03/2024 [id number] / / [id number] documented as of this encounter Visit Diagnoses Diagnosis HTN, goal below 130/80 Unspecified essential hypertension Generalized weakness Other malaise and fatigue documented in this encounter Care Teams Door Clamp Operator Relationship Specialty Start Date End Date Ghada Salazar MD [address] [place] [address] PCP - General Internal Medicine 04/04/22 documented as of this encounter
--- OUTSIDE RECORDS SUMMARY | 2023-09-09 23:40 | External Medical Summary | Summary of Care ---
Author Name Unknown Organization [facility] Address [address] [place] [address] Phone [phone] Care Team Providers Care Physician Practice Manager Name Role Phone Ghada Salazar MD Primary Care Provider Reason for Visit * Reason Comments Outpatient Testing Encounter Details Date Type Department Care Team (Late st Contact Info) Description 09/06/2023 2:10 PM EDT Laboratory Laboratory [facility] [address] [facility] [place] [address] Pod3, Specimen Drop Off [facility] [address] [place] [address] HTN, goal below 130/80; Generalized weakness Allergies No known active allergiesdocumented as of this encounter (statuses as of 09/06/2023) Medications Medication Sig Dispensed Refills Start Date End Date Status Aspirin EC 81 MG Oral Tablet Delayed ReleaseIndications: Type 2 diabetes mellitus with hemoglobin A1c goal of less than 7.0% ([facility]) Take 1 Tablet by mouth in the [...] hemoglobin A1c goal of less than 7.0% ([facility]) Inject 16 Units under the skin every [...] 05/29/2023 Active Additional Information Patient taking differently:2 [place] Each Nostril Daily(AM),Indications: as needed, Reported on 06/02/2023 Assure ID Duo Pro Pen [place] 31G X 5 MM (Insulin Pen Needle) [...] mRNA, LNP-s, No Pre serve, 2-Dose Series ([employer]iewex) 02/01/2021,07/09/2020,06/16/2020 COVID-19, LNP-s, No Preserve , Perfecto-sucrose, Ages 12+ (Viewex) 07/05/2023,11/01/2021 Covid-19, Mrna, Lnp-s, Pf, B ivalent, 30 Mcg, IM, 12 yrs and above ([employer]iewex) 10/06/2022,01/06/2022 HEP A - Hepatitis A (Adult [...] EDT Office Visit Family Practice [address] [place] [address] [address] Ghada Salazar MD [address] [address] 09/12/2023 2:40 PM EDT Office Visit Pharmacy, [address] [place] [address] [place] [address] [facility] [address] [place] [address] 09/21/2023 2:00 PM EDT Office Visit Nephrology, Alber Dang [facility] [address] [place] [address] Juan Tovar MD [address] [place] [address] 09/21/2023 3:30 PM EDT Telemedicine Psychiatry, [facility] [address] [place] [address] Filemon Medina CRNP [address] [place] [address] 09/22/2023 3:45 PM EDT Telemedicine Orthopaedics [facility] 132 [facility] [place] [address] Zia Monsalve MD [address] [place] [address] 09/26/2023 1:30 PM EDT Office Visit Orthopaedics [facility] [address] [place] [address] Zia Monsalve MD [address] [place] [address] 09/27/2023 2:30 PM EDT Imaging Radiology [facility] 1st Floor, [place] [address] [place] [address] 10/10/2023 1:30 PM EDT Office Visit Interventional Pain Center, [facility] [address] [place] [address] Edgar Forde DO [address] [place] [phone] 12/28/2023 3:20 PM EDT Office Visit Family Practice [facility] [address] [place] [address] Ghada Salazar MD [address] [place] [address] 02/13/2024 10:40 AM EDT [facility] [address] [place] [address] Sofia Romo, [address] [place] [address] Pending Results Name Type Priority Associated Diagnoses [...] this encounter Medical Devices Implanted Type Area Motorcycle Repairer Device Identifier Shelf Expiration Date Model / Serial / Lot Mometasone Furoate Implant Min - [id number] Implanted:Qty: 1 on 07/18/2023 by Pat Umaña MD at OR [facility] Right: Nose Trunk ArchiveA [employer] 05/03/2024 [id number] / / [id number] documented as of this encounter Visit Diagnoses Diagnosis HTN, goal below 130/80 Unspecified essential hypertension Generalized weakness Other malaise and fatigue documented in this encounter Care Teams Physician Practice Manager Relationship Specialty Start Date End Date Ghada Salazar MD [address] [place] [address] PCP - General Internal Medicine 04/04/22 documented as of this encounter
--- OUTSIDE RECORDS SUMMARY | 2023-09-09 23:40 | External Medical Summary ---
Author Name Unknown Address Unknown Organization K09:[facility] [place] [address] Laboratory Report Ordering Provider Test Date Status KYUNG HERNÁNDEZ 09/06/2023 14:07:50 Final Observation Date Value Abnormality Reference (Units ) Status Color of Urine by Auto 09/06/2023 14:07:50 Yellow Light Yellow, Yellow, Dark Yellow Final Clarity, Urine 09/06/2023 14:07:50 Clear Clear Final Glucose [Mass/volume] in Urine by Automated test strip 09/06/2023 14:07:50 Negative Negative (mg/dL) Final Bilirubin.total [Presence] in Urine by Automated test strip 09/06/2023 14:07:50 Negative Negative Final Ketones [Mass/volume] in Urine by Automated test strip 09/06/2023 14:07:50 Negative Negative (mg/dL) Final Specific gravity, Urine 09/06/2023 14:07:50 1.020 1.003-1.030 Final Hemoglobin [Presence] in Urine by Automated test strip 09/06/2023 14:07:50 Trace Abnormal Negative Final pH, Urine 09/06/2023 14:07:50 5.5 5.0-7.5 (Units) Final Protein [Mass/volume] in Urine by Automated test strip 09/06/2023 14:07:50 >=300 Abnormal Negative (mg/dL) Final Urobilinogen [Mass/volume] in Urine by Automated test strip 09/06/2023 14:07:50 0.2 0.2, 1.0 (mg/dL) Final Nitrite [Presence] in Urine by Automated test strip 09/06/2023 14:07:50 Negative Negative Final Leukocyte esterase [Presence] in Urine by Automated test strip 09/06/2023 14:07:50 Negative Negative Final RBC, Urine 09/06/2023 14:07:50 3-5 Abnormal 0-2 (/HPF) Final WBC, Urine 09/06/2023 14:07:50 3-5 Abnormal 0-2 (/HPF) Final Bacteria [#/area] in Urine sediment by Microscopy high power field 09/06/2023 14:07:50 26-50 Abnormal 0-25 (/HPF) Final Epithelial cells.squamous [#/area] in Urine sediment by Microscopy high power field 09/06/2023 14:07:50 Many Abnormal None (/HPF) Final CULTURE, URINE - [facility] 09/06/2023 14:07:50 Final Quantitative urine culture t o be performed Performing Location [facility] [address] [place] [address]
--- OUTSIDE RECORDS SUMMARY | 2023-09-09 23:40 | External Medical Summary | Summary of Care ---
Author Name Unknown Organization [facility] Address [address] [place] [address] Phone [phone] Care Team Providers Care Churn Driller Helper Name Role Phone Ghada Salazar MD Primary Care Provider Reason for Visit * Reason Comments Outpatient Testing Encounter Details Date Type Department Care Team (Late st Contact Info) Description 09/06/2023 2:10 PM EDT Laboratory Laboratory [facility] [address] [facility] [place] [address] Pod3, Specimen Drop Off [facility] [address] [place] [address] HTN, goal below 130/80; Generalized weakness Allergies No known active allergiesdocumented as of this encounter (statuses as of 09/06/2023) Medications Medication Sig Dispensed Refills Start Date End Date Status Aspirin EC 81 MG Oral Tablet Delayed ReleaseIndications: Type 2 diabetes mellitus with hemoglobin A1c goal of less than 7.0% ([facility]) Take 1 Tablet by mouth in the [...] A1c goal of less than 7.0% ([facility]) Inject 16 Units under the skin every [...] 05/29/2023 Active Additional Information Patient taking differently:2 [place] Each Nostril Daily(AM),Indications: as needed, Reported on 06/02/2023 Assure ID Duo Pro Pen [place] 31G X 5 MM (Insulin Pen Needle) [...] mRNA, LNP-s, No Pre serve, 2-Dose Series ([facility]) 02/01/2021,07/09/2020,06/16/2020 COVID-19, LNP-s, No Preserve , Perfecto-sucrose, Ages 12+ ([facility]) 07/05/2023,11/01/2021 Covid-19, Mrna, Lnp-s, Pf, B ivalent, 30 Mcg, IM, 12 yrs and above ([facility]) 10/06/2022,01/06/2022 HEP A - Hepatitis A (Adult [...] EDT Office Visit Family Practice [address] [place] [address] [place] [address] Ghada Salazar MD [address] [place] [address] 09/12/2023 2:40 PM EDT Office Visit Pharmacy, [address] [place] [address] [place] [address] [facility] [address] [facility] [address] [place] [address] 09/21/2023 2:00 PM EDT Office Visit Nephrology, Alber [facility] [facility] [address] [place] [address] Juan Tovar MD [address] [place] [address] 09/21/2023 3:30 PM EDT Telemedicine Psychiatry, [facility] [address] [place] [address] Filemon Medina CRNP [address] [place] [address] 09/22/2023 3:45 PM EDT Telemedicine Orthopaedics [facility] 132 [facility] [address] Zia Monsalve MD [address] [place] [address] 09/26/2023 1:30 PM EDT Office Visit Orthopaedics [facility] [address] [place] [address] Zia Monsalve MD [address] [place] [address] 09/27/2023 2:30 PM EDT Imaging Radiology [facility] 1st Floor, [place] [address] [place] [address] 10/10/2023 1:30 PM EDT Office Visit Interventional Pain Center, [facility] [address] [place] [address] Edgar Forde DO [address] [place] [address] 12/28/2023 3:20 PM EDT Office Visit Family Practice [facility] [address] [place] [address] Ghada Salazar MD [address] [place] [address] 02/13/2024 10:40 AM EDT [facility] [address] [place] [address] Sofia Romo, [address] [place] [address] Pending Results Name Type Priority Associated Diagnoses [...] this encounter Medical Devices Implanted Type Area Shift Stacker Device Identifier Shelf Expiration Date Model / Serial / Lot Mometasone Furoate Implant Min - [id number] Implanted:Qty: 1 on 07/18/2023 by Pat Umaña MD at OR [facility] Right: Nose NephroGenexA [employer]op 05/03/2024 [id number] / / [id number] documented as of this encounter Visit Diagnoses Diagnosis HTN, goal below 130/80 Unspecified essential hypertension Generalized weakness Other malaise and fatigue documented in this encounter Care Teams Churn Driller Helper Relationship Specialty Start Date End Date Ghada Salazar MD [address] [place] [address] PCP - General Internal Medicine 04/04/22 documented as of this encounter
--- OUTSIDE RECORDS SUMMARY | 2023-09-09 23:40 | External Medical Summary ---
Author Name Unknown Address Unknown Organization K01:[facility] [address] [place] [address] Laboratory Report Ordering Provider Test Date Status FELICIANO GUZMÁN 09/06/2023 14:07:50 Final Normal: <150 mg/ g creatinine
High: 150-500 mg/g creatinine
Very High: >500 mg/g creatinine
Nephrotic: >3000 mg/g creatinine Observation Date Value Abnormality Reference (Units ) Status Protein/Creatinine [Ratio] in Urine 09/06/2023 14:07:50 4057 Above high normal <150 (mg/g ) Final Protein, Urine 09/06/2023 14:07:50 353 (mg/dL) Final Creatinine, Urine 09/06/2023 14:07:50 87 (mg/dL) Final Performing Location [facility] [address] [place] [address]
--- OUTSIDE RECORDS SUMMARY | 2023-09-09 23:40 | External Medical Summary | Summary of Care ---
Author Name Unknown Organization [facility] Address [address] [place] [address] Phone [phone] Care Team Providers Care Cisco Unified Communications Engineer Name Role Phone Ghada Salazar MD Primary Care Provider Reason for Referral * Social Care (Within 30 days (routine)) - Authorized Specialty Diagnoses / Procedures Referred By Lauren siegel Referred To Contact Superintendent Commissary Diagnoses CKD (chronic kidney disease) stage 4, GFR 15-29 ml/min ([facility]) Type 2 diabetes mellitus with hemoglobin A1c goal of less than 7.0% ([facility]) Balance disorder Ghada Salazar MD [address] [place] [address] Referral ID Status Reason Start Date Expiration Date Visits Requested Visits Authorized [id number] Authorized Specialty Services Required 09/07/2023 999 999 Question Answer Referral Priority Within 30 days (routine) Where should this appointment be scheduled? [facility] Role Tax Examining Technician Tax Examining Technician Referral Reason Frail Elderly Comments Is patient being transitioned from [facility] to Complex Case Management? No * Evaluate & Treat - Unlimited Visits (Within 30 days (routine)) - Authorized Specialty Diagnoses / Procedures Referred By Lauren siegel Referred To Contact Orthopaedic Surgery / Orthopedics Diagnoses Osteoarthritis of right knee, unspecified osteoarthritis type Ghada Salazar MD [address] [place] [address] Referral ID Status Reason Start Date Expiration Date Visits Requested Visits Authorized [id number] Authorized Specialty Services Required 09/07/2023 999 999 Question Answer Referral Priority Within 30 days (routine) Where should this appointment be scheduled? External What [facility] the patient being [facility] What condition is the patient being seen for? Arthritis including related infection Reason for Visit * Reason Comments Acute Ongoing cough, short ness of breath and body aches/pains. Encounter Details Date Type Department Care Team (Latest Contact Info) Description 09/07/2023 1:40 PM EDT Office Visit Family [facility] [address] [place] [address] Ghada Salazar MD [address] [place] [address] Pneumonia of left lower lobe due to infectious organism*; Osteoarthritis of right knee, unspecified osteoarthritis type; CKD (chronic kidney disease) stage 4, GFR 15-29 ml/min ([facility]); Type 2 diabetes mellitus with hemoglobin A1c goal of less than 7.0% ([facility]); Balance disorder Allergies No known active allergiesdocumented as of this encounter (statuses as of 09/07/2023) Medications Medication Sig Dispensed Refills Start Date End Date Status Aspirin EC 81 MG Oral Tablet Delayed ReleaseIndications: Type 2 diabetes mellitus with hemoglobin A1c goal of less than 7.0% ([facility]) Take 1 Tablet by mouth in the [...] hemoglobin A1c goal of less than 7.0% ([facility]) Inject 16 Units under the skin every [...] 05/29/2023 Active Additional Information Patient taking differently:2 [place] Each Nostril Daily(AM),Indications: as needed, Reported on 06/02/2023 Assure ID Duo Pro Pen [place] 31G X 5 MM (Insulin Pen Needle) [...] as of this encounter (statuses as of 09/07/2023) Active Problems Problem Noted Date Diagnosed Date [...] as of this encounter (statuses as of 09/07/2023) Resolved Problems Problem Noted Date Diagnosed Date Resolved Date Stage 3b chronic kidney disease (CKD) 02/09/2022 05/20/2022 Diabetic retinopathy associa nasra with type 2 diabetes mellitus 02/09/2022 05/20/2022 documented as of this encounter (statuses as of 09/07/2023) Immunizations Name Administration Dates Next Due COVID-19 mRNA, LNP-s, No Pre serve, 2-Dose Series (I AM AT) 02/01/2021,07/09/2020,06/16/2020 COVID-19, LNP-s, No Preserve , Perfecto-sucrose, Ages 12+ (I AM AT) 07/05/2023,11/01/2021 Covid-19, Mrna, Lnp-s, Pf, B ivalent, [...] Date Smoking Tobacco: Never Smokeless Tobacco: Never Tobacco Cessation:Counseling Given: Not Answered Alcohol Use Standard Drinks/Week Comments Yes 0 [...] on file documented as of this encounter Last Filed Vital Signs Vital Sign Reading Time Taken Comments Blood Pressure 138/70 09/07/2023 1:19 PM EDT Pulse 82 09/07/2023 1:19 PM EDT Temperature 36.6 C (97.8 F) 09/07/2023 1:19 PM ED T Respiratory Rate - - Oxygen Saturation 94% 09/07/2023 2:13 PM EDT Inhaled Oxygen Concentration - - Weight - - Height - - Body Mass Index - - documented in this encounter Progress Notes * Ghada Salazar MD - 09/07/2023 1:39 PM EDT Images from the original note were not included. History of Present Illness Tasha Sauer is a 73 year old female that presents for Acute (Ongoing cough, shortness of breath and body aches/pains.) Cough x2 weeks. Confusion - last Monday night. Wasn't aware of surroundings. Prompted visit to clinic Monday. Given Augmentin for possible PNA. Has clearly improved since then. Brain does still feel fuzzy, attributes to vision changes. Breathing maybe improving. Still some wheezing. Falling asleep in middle of sentences on phone withdaughter. Weight down 20 lb in a month. Appetite down, food doesn't taste right, not eating as much, for a month. Blood sugars in past week - lower end of normal range, some values in 50s, but not often. MTM had hold mealtime short acting. No fevers. No vomiting. Some diarrhea - 1x/day, loose but not liquid, no blood/melena. Some mucous. No gross hematuria. Urinalysis yesterday showed trace blood, lots of protein, many squamous epithelial cells, culture pending. Chest x-ray 09/01 showed left basilar airspace opacities Multiple falls recently. Has had to call EMS twice to help pick her up off the floor. Other times grandson and son-in-law have helped. Wonders about additional help in the home. Current medications and allergies reviewed. Past medical history and problem list reviewed. Physical Exam Vitals: 09/07/23 1319 09/07/23 1413 Temp: 36.6 C (97.8 F) Pulse: 82 SpO2: 91% 94% BP: 138/70 BP Readings from Last 3 Encounters: 09/07/23 138/70 09/02/23 104/58 07/18/23 137/99 Wt Readings from Last 3 Encounters: 09/02/23 94.6 kg (208 lb 9.6 oz) 08/04/23 103.9 kg (229 lb) 07/25/23 103.9 kg (229 lb) Physical Exam Vitals and nursing note reviewed. Constitutional: General: She is not in acute distress. Appearance: She is not ill-appearing. Comments: Wheelchair. Occasional cough. HENT: Mouth/Throat: Mouth: Mucous membranes are dry. Comments: Tongue is very dry Eyes: General: No scleral icterus. Pupils: Pupils are equal, round, and reactive to light. Cardiovascular: Rate and Rhythm: Normal rate and regular rhythm. Heart sounds: No murmur heard. Pulmonary: Effort: Pulmonary effort is normal. Breath sounds: Normal breath sounds. Comments: ?faint rales at bases. Abdominal: General: Bowel sounds are normal. There is no distension. Palpations: Abdomen is soft. There is no mass. Tenderness: There is no abdominal tenderness. There is no guarding or rebound. Hernia: No hernia is present. Musculoskeletal: Right lower leg: No edema. Left lower leg: No edema. Lymphadenopathy: Cervical: No cervical adenopathy. Skin: Comments: A few flat scattered tiny red macules on b/l forearms. Also some excoriations. Nothing else that looks like petechiae Neurological: Mental Status: She is alert. I have reviewed the following results: CMP, Lipid Panel, Hemoglobin A1C, CBC, and B12 Assessment and Plan Pneumonia of left lower lobe due to infectious organism Will add on azithromycin for better atypical coverage. Discussed option of waiting until urine culture has returned. Decided to move ahead today, may adjust antibiotic once urine culture is back tomorrow. Reviewed red flag symptoms and instructed to head to the emergency department with shortness of breath or another acute confusional episode. - Azithromycin 250 MG Oral Tablet (Zithromax Z-Evens); Take two tablets by mouth on first day, then 1tablet daily until gone Osteoarthritis of right knee, unspecified osteoarthritis type - ORTHOPAEDICS REFERRAL OP CKD (chronic kidney disease) stage 4, GFR 15-29 ml/min ([facility]) - POPULATION HEALTH REFERRAL OP Type 2 diabetes mellitus with hemoglobin A1c goal of less than 7.0% ([facility]) - POPULATION HEALTH REFERRAL OP Balance disorder - POPULATION HEALTH REFERRAL OP Handicap placard form signed Wrap-Up Time: I spent a total of 30-39 minutes (exact time 34 mins) on the date of service in preparation, delivery, and documentation of the care provided to Tasha Sauer excluding any time spent in the performance of separately billed services. documented in this encounter Plan of Treatment Upcoming Encounters Date Type Department Care Team (Late st Contact Info) Description 09/12/2023 2:40 PM EDT Office Visit Pharmacy, [address] [place] [address] [phone] [place] [address] [address] [place], [place] [address] 09/21/2023 2:00 PM EDT Office Visit Nephrology, Alber [address] [place], [place] [address] Juan Tovar MD [address] [place] [address] 09/21/2023 3:30 PM EDT Telemedicine Psychiatry, [facility] [address] [place] [address] Filemon Medina CRNP [address] [place] [address] 09/22/2023 3:45 PM EDT Telemedicine Orthopaedics [facility] [address] [place] [address] Zia Monsalve MD [address] [place] [address] 09/26/2023 1:30 PM EDT Office Visit Orthopaedics [facility] [address] [place] [address] Zia Monsalve MD [address] [place] [address] 09/27/2023 2:30 PM EDT [facility] [address] [place] [address] 10/10/2023 1:30 PM EDT Office Visit Interventional Pain Center, [facility] [address] [place] [address] Edgar Forde DO [address] [place] [address] 12/28/2023 3:20 PM EDT Office Visit Family Practice [facility] [address] [place] [address] Ghada Salazar MD [address] [place] [address] 02/13/2024 10:40 AM EDT Office Visit [facility] Disorders Ctr [facility] [address] [place] [address] Sofia Romo DO [address] [place] [address] Scheduled Referrals Name Type Priority Associated Diagnoses Orde r Schedule ORTHOPAEDICS REFERRAL OP Referral Within 30 days (routine) Osteoarthritis of right knee, unspecified osteoarthritis type Ordered: 09/07/2023 POPULATION HEALTH REFERRAL OP Referral Within 30 days (routine) CKD (chronic kidney disease) stage 4, GFR 15-29 ml/min ([facility]) Type 2 diabetes mellitus with hemoglobin A1c goal of less than 7.0% ([facility]) Balance disorder Ordered: 09/07/2023 Health Maintenance Due Date Last Done Comments Cologuard 1994 Colonoscopy 1994 Colorectal Cancer Screening 1994 Fecal Occult Blood Test 1994 Sigmoidoscopy 1994 Diabetic Foot Exam 05/20/2023 05/20/2022 COVID-19 Vaccine ( season) 2023 07/05/2023, 10/06/2022, 01/06/2022, Additional history exists PTH 09/23/2023 09/22/2022, 02/18/2022 GFR 12/13/2023 06/14/2023, 12/16, 09/22/2022, Additional history exists HbA1c 12/13/2023 06/14/2023, 09/2022, 05/20/2022, Additional history exists Influenza Vaccine (FLU shot) (Season Ended) 2023 12/17/2021, 01/25/2021 Hgb 12/30/2023 12/29/2022, 11/2022, 09/20/2022, Additional history exists Phosphate 12/30/2023 [...] this encounter Medical Devices Implanted Type Area Academic Computing Director Device Identifier Shelf Expiration Date Model / Serial / Lot Mometasone Furoate Implant Min - [id number] Implanted:Qty: 1 on 07/18/2023 by Pat Umaña MD at OR [facility] Right: Nose LikeedsA Properati 05/03/2024 [id number] / / [id number] documented as of this encounter Visit Diagnoses Diagnosis Pneumonia of left lower lobe due to infectious organism- Primary Osteoarthritis of right knee, unspecified osteoarthritis type CKD (chronic kidney disease) stage 4, GFR 15-29 ml/min ([facility]) Chronic kidney disease, Stage IV (severe) Type 2 diabetes mellitus with hemoglobin A1c goal of less than 7.0% ([facility]) Balance disorder Other symptoms involving nervous and musculoskeletal systems documented in this encounter Care Teams Cisco Unified Communications Engineer Relationship Specialty Start Date End Date Ghada Salazar MD [address] [place] [address] PCP - General Internal Medicine 04/04/22 documented as of this encounter
--- OUTSIDE RECORDS SUMMARY | 2023-09-09 23:40 | External Medical Summary | Summary of Care ---
Author Name Unknown Organization [facility] Address [address] [place] [address] Phone [phone] Care Team Providers Care Film Color Tester Name Role Phone Ghada Salazar MD Primary Care Provider Reason for Visit * Reason Comments Outpatient Testing Encounter Details Date Type Department Care Team (Late st Contact Info) Description 09/06/2023 2:10 PM EDT Laboratory Laboratory [facility] [address] [facility] [place] [address] Pod3, Specimen Drop Off [facility] [address] [place] [address] HTN, goal below 130/80; Generalized weakness Allergies No known active allergiesdocumented as of this encounter (statuses as of 09/06/2023) Medications Medication Sig Dispensed Refills Start Date End Date Status Aspirin EC 81 MG Oral Tablet Delayed ReleaseIndications: Type 2 diabetes mellitus with hemoglobin A1c goal of less than 7.0% ([facility]) Take 1 Tablet by mouth [...] hemoglobin A1c goal of less than 7.0% ([facility]) Inject 16 Units under the [...] 05/29/2023 Active Additional Information Patient taking differently:2 [place] Each Nostril Daily(AM),Indications: as needed, Reported on 06/02/2023 Assure ID Duo Pro Pen [place] 31G X 5 MM (Insulin Pen Needle) [...] mRNA, LNP-s, No Pre serve, 2-Dose Series ([employer]) 02/01/2021,07/09/2020,06/16/2020 COVID-19, LNP-s, No Preserve , Perfecto-sucrose, Ages 12+ ([employer]) 07/05/2023,11/01/2021 Covid-19, Mrna, Lnp-s, Pf, B ivalent, 30 Mcg, IM, 12 yrs and above ([employer]) 10/06/2022,01/06/2022 HEP A - Hepatitis A (Adult [...] EDT Office Visit Family Practice [address] [place] [address] [place] [address] Ghada Salazar MD [address] [place] [address] 09/12/2023 2:40 PM EDT Office Visit Pharmacy, [address] [place] [address] [place] [address] [facility] [address] [place] [address] 09/21/2023 2:00 PM EDT Office Visit Nephrology, Alber Dang [facility][note 3] [address] [place] [address] Juan Tovar MD [address] [place] [address] 09/21/2023 3:30 PM EDT Telemedicine Psychiatry, [facility] [address] [place] [address] Filemon Medina CRNP [address] [place] [address] 09/22/2023 3:45 PM EDT Telemedicine Orthopaedics [facility] 132 [facility] [place] [address] Zia Monsalve MD [address] [place] [address] 09/26/2023 1:30 PM EDT Office Visit Orthopaedics [facility] 132 [facility] [place] [address] Zia Monsalve MD [address] [place] [address] 09/27/2023 2:30 PM EDT Imaging Radiology [facility] 1st Floor, [place] [address] [facility] [place] [address] 10/10/2023 1:30 PM EDT Office Visit Interventional Pain Center, [facility] [address] [facility] [place] [address] Edgar Forde DO [address] [place] [phone] 12/28/2023 3:20 PM EDT Office Visit Family Practice [facility] [address] [place] [address] Ghada Salazar MD [address] [place] [address] 02/13/2024 10:40 AM EDT [facility] [address] [place] [address] Sofia Romo, [address] [place] [address] Pending Results Name Type Priority Associated Diagnoses [...] this encounter Medical Devices Implanted Type Area Founder Device Identifier Shelf Expiration Date Model / Serial / Lot Mometasone Furoate Implant Min - [id number] Implanted:Qty: 1 on 07/18/2023 by Pat Umaña MD at OR [facility] Right: Nose Amal The[employer]A [employer] 05/03/2024 [id number] / / [id number] documented as of this encounter Visit Diagnoses Diagnosis HTN, goal below 130/80 Unspecified essential hypertension Generalized weakness Other malaise and fatigue documented in this encounter Care Teams Film Color Tester Relationship Specialty Start Date End Date Ghada Salazar MD [address] [place] [address] PCP - General Internal Medicine 04/04/22 documented as of this encounter
--- OUTSIDE RECORDS SUMMARY | 2023-09-09 23:40 | External Medical Summary ---
Author Name Unknown Address Unknown Organization [id number]:[facility] [facility] [address] [place] [address] Laboratory Report Ordering Provider Test Date Status SUZANNE COLLAZO 09/06/2023 14:07:50 Final Normal: <30 mg/g creatinine< br/>High: 30-300 mg/g creatinine
Very High: >300 mg/g creatinine
Nephrotic: >2200 mg/g creatinine Observation Date Value Abnormality Reference (Units ) Status Albumin, Urine 09/06/2023 14:07:50 195.22 (mg/dL) Final Creatinine, Urine 09/06/2023 14:07:50 86 (mg/dL) Final Albumin/Creatinine [Mass Ratio] in Urine 09/06/2023 14:07:50 2270 Above high normal <30 (mg/g Creat) Final Performing Location [facility] [place] [facility] [address] [place] [place] [address]
--- OUTSIDE RECORDS SUMMARY | 2023-09-09 23:40 | External Medical Summary | Summary of Care ---
Author Name Unknown Organization [facility] Address [address] [place] [address] Phone [phone] Care Team Providers Care Auto [employer] Safety Program Coordinator Name Role Phone Ghada Salazar MD Primary Care Provider Reason for Visit * Reason Comments Outpatient Testing Encounter Details Date Type Department Care Team (Late st Contact Info) Description 09/06/2023 2:10 PM EDT Laboratory Laboratory [facility] [address] [facility] [place] [facility] [place] [id number] Pod3, Specimen Drop Off [facility] [address] [place] [address] HTN, goal below 130/80; Generalized weakness Allergies No known active allergiesdocumented as of this encounter (statuses as of 09/06/2023) Medications Medication Sig Dispensed Refills Start Date End Date Status Aspirin EC 81 MG Oral Tablet Delayed ReleaseIndications: Type 2 diabetes mellitus with hemoglobin A1c goal of less than 7.0% ([facility]) Take 1 Tablet by mouth in the [...] than 7.0% ([facility]) Inject 16 Units under the skin every [...] 05/29/2023 Active Additional Information Patient taking differently:2 [place] Each Nostril Daily(AM),Indications: as needed, Reported on 06/02/2023 Assure ID Duo Pro Pen [place] 31G X 5 MM (Insulin Pen Needle) [...] mRNA, LNP-s, No Pre serve, 2-Dose Series (Foodlve) 02/01/2021,07/09/2020,06/16/2020 COVID-19, LNP-s, No Preserve , Perfecto-sucrose, Ages 12+ (Foodlve) 07/05/2023,11/01/2021 Covid-19, Mrna, Lnp-s, Pf, B ivalent, 30 Mcg, IM, 12 yrs and above (Foodlve) 10/06/2022,01/06/2022 HEP A - Hepatitis A (Adult [...] EDT Office Visit Family Practice [address] [place] [address] [place] [address] Ghada Salazar MD [address] [place] [address] 09/12/2023 2:40 PM EDT Office Visit Pharmacy, [address] [place] [address] [place] [address] [facility] [place] [address] 09/21/2023 2:00 PM EDT Office Visit Nephrology, Alber Dang [facility] [address] [place] [address] Juan Tovar MD [address] [place] [address] 09/21/2023 3:30 PM EDT Telemedicine Psychiatry, [facility] [address] [place] [address] Filemon Medina CRNP [address] [place] [address] 09/22/2023 3:45 PM EDT Telemedicine Orthopaedics [facility] 132 [facility] [place] [address] Zia Monsalve MD [address] [place] [address] 09/26/2023 1:30 PM EDT Office Visit Orthopaedics [facility] [address] [employer] [place] [address] Zia Monsalve MD [address] [place] [address] 09/27/2023 2:30 PM EDT Imaging Radiology [facility] 1st Floor, [place] [address] [employer] [place] [address] 10/10/2023 1:30 PM EDT Office Visit Interventional Pain Center, [facility] [address] [employer] [place] [address] Edgar Forde DO [address] [place] [phone] 12/28/2023 3:20 PM EDT Office Visit Family Practice [facility] [address] [place] [address] Ghada Salazar MD [address] [place] [address] 02/13/2024 10:40 AM EDT [facility] [address] [place] [address] Sofia Romo, [address] [place] [address] Pending Results Name Type Priority Associated Diagnoses [...] this encounter Medical Devices Implanted Type Area Business Education Instructor Device Identifier Shelf Expiration Date Model / Serial / Lot Mometasone Furoate Implant Min - [id number] Implanted:Qty: 1 on 07/18/2023 by Pat Umaña MD at OR [facility] Right: Nose bookletmobileA [employer] 05/03/2024 [id number] / / [id number] documented as of this encounter Visit Diagnoses Diagnosis HTN, goal below 130/80 Unspecified essential hypertension Generalized weakness Other malaise and fatigue documented in this encounter Care Teams Auto Club Safety Program Coordinator Relationship Specialty Start Date End Date Ghada Salazar MD [address] [place] [address] PCP - General Internal Medicine 04/04/22 documented as of this encounter
--- OUTSIDE RECORDS SUMMARY | 2023-09-09 23:40 | External Medical Summary ---
Author Name Unknown Address Unknown Organization K01:[facility]ATORY [facility] [place] - [address] [place] [address] Laboratory Report Ordering Provider Test Date Status EDGARTRACEY 09/06/2023 14:07:50 Final Observation Date Value Abnormality Reference (Units) Status Bacteria identified in Specimen by Culture 09/06/2023 14:07:50 No significant growth Final Test: Culture, Urine, Quanti tative
Specimen Source: Urine, Clean Catch
Specimen Type: Urine
Specimen Date: 09/06/2023 1407
Result Date: 09/07/2023 1643
Result Status: Final result
Resulting Lab: [facility] [place]
[address]
[place] [address]

CULTURE

No significant growth

null Performing Location [facility] [place] - [address] [facility] [address]
--- OUTSIDE RECORDS SUMMARY | 2023-09-09 23:40 | External Medical Summary | Summary of Care ---
Author Name Unknown Organization [facility] Address [address] [place] [address] Phone [phone] Care Team Providers Care Career Center Advisor Name Role Phone Ghada Salazar MD Primary Care Provider Reason for Visit * Reason Comments Outpatient Testing Encounter Details Date Type Department Care Team (Late st Contact Info) Description 09/06/2023 2:10 PM EDT Laboratory Laboratory [facility] [address] [place] [address] Pod3, Specimen Drop Off [facility] [address] [place] [address] HTN, goal below 130/80; Generalized weakness Allergies [...] 05/29/2023 Active Additional Information Patient taking differently:2 [place] Each Nostril Daily(AM),Indications: as needed, Reported on 06/02/2023 Assure ID Duo Pro Pen [place] 31G X 5 MM (Insulin Pen Needle) [...] mRNA, LNP-s, No Pre serve, 2-Dose Series (Diversion) 02/01/2021,07/09/2020,06/16/2020 COVID-19, LNP-s, No Preserve , Eprfecto-sucrose, Ages 12+ (Diversion) 07/05/2023,11/01/2021 Covid-19, Mrna, Lnp-s, Pf, B ivalent, 30 Mcg, IM, 12 yrs and above (Diversion) 10/06/2022,01/06/2022 HEP A - Hepatitis A (Adult [...] EDT Office Visit Family Practice [address] [place] [address] [place] [address] Ghada Salazar MD [address] [place] [address] 09/12/2023 2:40 PM EDT Office Visit Pharmacy, [address] [place] [address] [place] [address] [facility] [address] [facility] [place] [address] [place] [address] 09/21/2023 2:00 PM EDT Office Visit Nephrology, Alber Dang [facility] [address] [place] [address] Juan Tovar MD [address] [place] [address] 09/21/2023 3:30 PM EDT Telemedicine Psychiatry, [facility] [address] [place] [address] Filemon Medina CRNP [address] [place] [address] 09/22/2023 3:45 PM EDT Telemedicine Orthopaedics [facility] 132 [facility] [place] [address] Zia Monsalve MD [address] [place] [address] 09/26/2023 1:30 PM EDT Office Visit Orthopaedics [facility] 132 [facility] [place] [address] Zia Monsalve MD [address] [place] [address] 09/27/2023 2:30 PM EDT Imaging Radiology [facility] 1st Floor, [place] [address] [facility] [place] [address] 10/10/2023 1:30 PM EDT Office Visit Interventional Pain Center, [facility] 132 [facility] [place] [address] Edgar Forde DO [address] [place] [phone] 12/28/2023 3:20 PM EDT Office Visit Family Practice [facility] [address] [place] [address] Ghada Salazar MD [address] [place] [address] 02/13/2024 10:40 AM EDT [facility] [address] [place] [phone] Sofia Romo, [address] [place] [address] Pending Results Name Type Priority Associated Diagnoses [...] this encounter Medical Devices Implanted Type Area Body Repairer Device Identifier Shelf Expiration Date Model / Serial / Lot Mometasone Furoate Implant Min - [id number] Implanted:Qty: 1 on 07/18/2023 by Pat Umaña MD at OR [facility] Right: Nose NeuroPaceA [employer] 05/03/2024 [id number] / / [id number] documented as of this encounter Visit Diagnoses Diagnosis HTN, goal below 130/80 Unspecified essential hypertension Generalized weakness Other malaise and fatigue documented in this encounter Care Teams Career Center Advisor Relationship Specialty Start Date End Date Ghada Salazar MD [address] [place] [address] PCP - General Internal Medicine 04/04/22 documented as of this encounter
--- OUTSIDE RECORDS SUMMARY | 2023-09-09 23:40 | External Medical Summary | Summary of Care ---
Author Name Unknown Organization [facility] Address [address] [place] [address] Phone [phone] Care Team Providers Care Design Teacher Name Role Phone Ghada Salazar MD Primary Care Provider Reason for Visit * Reason Comments Outpatient Testing Encounter Details Date Type Department Care Team (Late st Contact Info) Description 09/06/2023 2:10 PM EDT Laboratory Laboratory [facility] 200 [facility] [place] [address] Pod3, Specimen Drop Off [facility] [address] [place] [address] HTN, goal below 130/80; Generalized weakness Allergies No known active allergiesdocumented as of this encounter (statuses as of 09/06/2023) Medications Medication Sig Dispensed Refills Start Date End Date Status Aspirin EC 81 MG Oral Tablet Delayed ReleaseIndications: Type 2 diabetes mellitus with hemoglobin A1c goal of less than 7.0% ([facility]) Take 1 Tablet by mouth [...] hemoglobin A1c goal of less than 7.0% ([facility]) Inject 16 Units under the [...] 05/29/2023 Active Additional Information Patient taking differently:2 [place] Each Nostril Daily(AM),Indications: as needed, Reported on 06/02/2023 Assure ID Duo Pro Pen [place] 31G X 5 MM (Insulin Pen Needle) [...] mRNA, LNP-s, No Pre serve, 2-Dose Series ([employer] [employer]) 02/01/2021,07/09/2020,06/16/2020 COVID-19, LNP-s, No Preserve , Perfecto-sucrose, Ages 12+ ([place]) 07/05/2023,11/01/2021 Covid-19, Mrna, Lnp-s, Pf, B ivalent, 30 Mcg, IM, 12 yrs and above ([place]) 10/06/2022,01/06/2022 HEP A - Hepatitis A (Adult [...] EDT Office Visit Family Practice [address] [place] [address] [place] [address] Ghada Salazar MD [address] [place] [address] 09/12/2023 2:40 PM EDT Office Visit Pharmacy, [address] [place] [address] [place] [address] [facility] [address] [facility] [place] [address] [place] [address] 09/21/2023 2:00 PM EDT Office Visit Nephrology, Alber Dang [facility] [address] [place] [address] Juan Tovar MD [address] [place] [address] 09/21/2023 3:30 PM EDT Telemedicine Psychiatry, [facility] [address] [place] [address] Filemon Medina CRNP [address] [place] [address] 09/22/2023 3:45 PM EDT Telemedicine Orthopaedics [facility] 132 [place] [address] Zia Monsalve MD [address] [place] [address] 09/26/2023 1:30 PM EDT Office Visit Orthopaedics [facility] 132 [facility] [place] [address] Zia Monsalve MD [address] [place] [address] 09/27/2023 2:30 PM EDT Imaging Radiology [facility] 1st Floor, [place] 132 [facility] [place] [address] 10/10/2023 1:30 PM EDT Office Visit Interventional Pain Center, [facility] 132 [facility] [place] [address] Edgar Forde DO [address] [place] [phone] 12/28/2023 3:20 PM EDT Office Visit Family Practice [facility] [address] [place] [address] Ghada Salazar MD [address] [place] [address] 02/13/2024 10:40 AM EDT [facility] [address] [place] [address] Sofia Romo, [address] [place] [address] Pending Results Name Type Priority Associated Diagnoses [...] this encounter Medical Devices Implanted Type Area Resident Engineer Device Identifier Shelf Expiration Date Model / Serial / Lot Mometasone Furoate Implant Min - [id number] Implanted:Qty: 1 on 07/18/2023 by Pat Umaña MD at OR [facility] Right: Nose [employer] Pharm[employer] 05/03/2024 [id number] / / [id number] documented as of this encounter Visit Diagnoses Diagnosis HTN, goal below 130/80 Unspecified essential hypertension Generalized weakness Other malaise and fatigue documented in this encounter Care Teams Design Teacher Relationship Specialty Start Date End Date Ghada Salazar MD [address] [place] [address] PCP - General Internal Medicine 04/04/22 documented as of this encounter
--- OUTSIDE RECORDS SUMMARY | 2023-09-09 23:41 | External Medical Summary | Summary of Care ---
Author Name Unknown Organization [facility] Address [address] [place] [address] Phone [phone] Care Team Providers Care Night Guard Name Role Phone Ghada Salazar MD Primary Care Provider Reason for Visit * Reason Comments Follow Up Encounter Details Date Type Department Care Team (Late st Contact Info) Description 07/25/2023 1:30 PM EDT Office Visit Otolaryngology [facility] [place] [address] Pat Umaña MD [address] [place] [address] Chronic sphenoidal sinusitis* Allergies No known active allergiesdocumented as of this encounter (statuses as of 07/25/2023) Medications Medication Sig Dispensed Refills Start Date End Date Status Aspirin EC 81 MG Oral Tablet Delayed ReleaseIndications: Type 2 diabetes mellitus with hemoglobin A1c goal of less than 7.0% ([facility]) Take 1 Tablet by mouth in the morning. 0 Active B-12 500 MCG Oral TabletIndications:B 12 deficiency Take by mouth . 0 Active D3 5000 125 MCG (5000 UT) Oral Capsule (Cholecalciferol)In dications:Vitamin D deficiency Take 1 Capsule by mouth in the morning. 0 Active Acetaminophen 325 MG Oral Tablet Take 1 Tablet by mouth every 6 hours as needed for Pain, Moderate. 0 Active Toujeo Max SoloStar 300 UNIT/ML Subcutaneous Solution Pen-injector (Insulin Glargine (2 Unit Dial))Indications:T ype 2 diabetes mellitus with hemoglobin A1c goal of less than 7.0% ([facility]) Inject 16 Units under the skin every morning. 15 mL 3 04/28/2022 Active Additional Information Patient taking differently:16 Units SubcutaneousDaily(Non-Specified), Indications: in afternoon, Reported on 06/02/2023 Fish Oil 1000 MG Oral Capsule Delayed Release Take 1 Capsule by mouth in the morning. 0 Active Cetirizine HCl 10 MG Oral Tablet Chewable (ZyrTEC)Indications :as needed Take 1 Tablet by mouth in the morning. 0 Active oxyBUTYnin Chloride 5 MG Oral Tablet [...] 05/29/2023 Active Additional Information Patient taking differently:2 [place] Each Nostril Daily(AM),Indications: as needed, Reported on 06/02/2023 FLUoxetine HCl 20 MG Oral Capsule (PROzac) Take 1 Capsule by mouth in the morning. 90 Capsule 1 06/01/2023 Active FLUoxetine HCl 10 MG Oral Capsule (PROzac) Take 1 Capsule by mouth in the morning. Take with 20mg capsule for total daily dose of 10mg. 90 Capsule 1 06/01/2023 Active Assure ID Duo Pro Pen [place] 31G X 5 MM (Insulin Pen Needle) [...] THE MORNING 90 Tablet 1 06/29/2023 Active predniSONE 10 MG Oral Tablet (Deltasone) Take 6 tab daily x 3 days, then 4 tab daily x 3 days, 3 tab daily x 3 days, 2 tab daily x 3 days, then 1 tab daily x 3 days.Start 4 days prior to your sinus surgery. 48 Tablet 0 06/30/2023 Active Chlorhexidine Gluconate 0.12 % Mouth/Throat Solution (Periogard) RINSE AND SPIT OUT WITH 1 CAPFUL TWICE A DAY FOR 30 SECONDS 0 05/09/2023 Active HumaLOG KwikPen 100 UNIT/ML Subcutaneous Solution Pen-injector Inject 18 Units under the skin in the morning and 18 Units at noon and 18 Units in the evening. Inject with meals. 15 mL 3 07/17/2023 Active documented as of this encounter (statuses as of 07/25/2023) Active Problems Problem Noted Date Diagnosed Date [...] as of this encounter (statuses as of 07/25/2023) Resolved Problems Problem Noted Date Diagnosed Date Resolved Date Stage 3b chronic kidney disease (CKD) 02/09/2022 05/20/2022 Diabetic retinopathy associa nasra with type 2 diabetes mellitus 02/09/2022 05/20/2022 documented as of this encounter (statuses as of 07/25/2023) Immunizations Name Administration Dates Next Due COVID-19 mRNA, LNP-s, No Pre serve, 2-Dose Series ([employer]) 02/01/2021,07/09/2020,06/16/2020 COVID-19, LNP-s, No Preserve , Perfecto-sucrose, Ages 12+ (Pfizer) 07/05/2023,11/01/2021 Covid-19, Mrna, Lnp-s, Pf, B ivalent, [...] Sign Reading Time Taken Comments Blood Pressure - - Pulse - - Temperature 37.1 C (98.7 F) 07/25/2023 1:44 PM ED T Respiratory Rate - - Oxygen Saturation - - Inhaled Oxygen Concentration - - Weight 103.9 kg (229 lb) 07/25/2023 1:44 PM EDT Height 152.4 cm (5') 07/25/2023 1:44 PM EDT Body Mass Index 44.72 07/25/2023 1:44 PM EDT documented in this encounter Progress Notes * Pat Umaña MD - 07/25/2023 1:35 PM EDT Patient returns today s/p RIGHT FESS. This was performed on 07/18/23. Patient states has been doing well. Has been irrigating the nose as directed. Patient denies any bleeding from the nose. PHYSICAL EXAM General: This is a healthy appearing who appears their stated age. The patient is alert and appropriately verbally conversant without hoarseness. Face: The face was inspected and no cutaneous masses or lesions were visualized. There was no erythema or edema noted. Facial movement was symmetric without weakness. No skin lesions were detected. Eyes: Extra-ocular muscle function was intact. No nystagmus was observed. Nose: Examination of the nose revealed no masses, polyps, mucopus, or other lesion. The nasal septum was non-obstructing. The turbinates were without abnormality. PROCEDURE In order to assess the paranasal sinuses, endoscopy of the nose and paranasal sinuses was performedusing a rigid zero degree and 30 degree pediatric endoscopes. The nose was decongested with topicaloxymetazoline 0.05% spray and then anesthetized with topical Lidocaine 4% spray. The scope was usedto examine each side of the nose. The nasopharynx was without lesion. The left and right nasal cavities were debrided using a suction and alligator. The patient tolerated the procedure well. Assessment 72 yo F s/p RIGHT functional endoscopic sinus surgery. Plan: - doing well - bilateral sinuses debrided today - continue saline irrigations twice daily - continue budesonide rinses twice daily - follow up in 1-2 week - Pathology consistent with a mycetoma. I spent a total of 40-54 minutes (exact time 40 mins) on the date of service in preparation, delivery, and documentation of the care provided to Tasha Sauer excluding any time spent in the performance of separately billed services. Pat Umaña MD [facility] Otolaryngology - Head and Neck [place] 07/25/2023 1:37 PM documented in this encounter Nursing Notes * Marisela Loera LPN - 07/25/2023 1:45 PM EDT Patient presents today for post op. documented in this encounter Plan of Treatment Upcoming Encounters Date Type Department Care Team (Late st Contact Info) Description 07/27/2023 2:00 PM EDT Telemedicine Psychiatry, [facility] [address] [place] [address] Filemon Medina CRNP [address] [place] [address] 08/04/2023 10:00 AM EDT Office Visit Otolaryngology [facility] [address] [place] [address] Pat Umaña MD [address] [place] [address] 08/18/2023 10:45 AM EDT Office Visit Otolaryngology [facility] [address] [place] [address] Pat Umaña MD [address] [place] [address] 08/29/2023 2:00 PM EDT Office Visit Pharmacy, [facility] [address] [place] [address] [facility] [place] [address] [facility] [place] [address] 09/21/2023 2:00 PM EDT Office Visit Nephrology, Alber Dang [address] [place] [address] Juan Tovar MD [address] [place] [address] 10/31/2023 2:20 PM EDT Office Visit Sleep Disorders Ctr [facility] [address] [place] [phone] Sofia Romo DO [address] [place] [address] 12/28/2023 3:20 PM EDT Office Visit Family Practice [facility] [address] [place] [address] Ghada Salazar MD [address] [place] [address] Health Maintenance Due Date Last Done Comments Hgb 09/05/1967 Cologuard 1994 Colonoscopy 1994 Colorectal Cancer Screening [...] (FLU shot) (Season Ended) 2023 12/17/2021, 01/25/2021 Phosphate 12/30/2023 12/29/2022, 0611/2022, 02/18/2022 Nephrology Referral 01/20/2024 01/19/2023 Diabetic Eye [...] this encounter Medical Devices Implanted Type Area Pizza Driver Device Identifier Shelf Expiration Date Model / Serial / Lot Mometasone Furoate Implant Min - [id number] Implanted:Qty: 1 on 07/18/2023 by Pat Umaña MD at [facility] Right: Nose [employer] VoicebaseCIENDOTRONIX MACK 05/03/2024 [id number] / / [id number] documented as of this encounter Visit Diagnoses Diagnosis Chronic sphenoidal sinusitis- Primary documented in this encounter Care Teams Night Guard Relationship Specialty Start Date End Date Ghada Salazar MD [address] [place] [address] PCP - General Internal Medicine 04/04/22 documented as of this encounter
--- OUTSIDE RECORDS SUMMARY | 2023-09-09 23:41 | External Medical Summary | Summary of Care ---
Author Name Unknown Organization [facility] Address [address] [facility] [place] [address] Phone [phone] Care Team Providers Care Leakage Tester Name Role Phone Ghada Salazar MD Primary Care Provider Reason for Visit * Reason Comments Post-Op 1 WEEK POST OP SINUS Encounter Details Date Type Department Care Team (Late st Contact Info) Description 08/04/2023 10:00 AM EDT Office Visit Otolaryngology [facility] [address] [place] [address] Pat Umaña MD [address] [facility] [place] [address] Chronic sphenoidal sinusitis* Allergies No known active allergiesdocumented as of this encounter (statuses as of 08/04/2023) Medications Medication Sig Dispensed Refills Start Date End Date Status Aspirin EC 81 MG Oral Tablet Delayed ReleaseIndications: Type 2 diabetes mellitus with hemoglobin A1c goal of less than 7.0% ([facility]) Take 1 Tablet by mouth in the [...] hemoglobin A1c goal of less than 7.0% ([facility]) Inject 16 Units under the skin every [...] 05/29/2023 Active Additional Information Patient taking differently:2 Boyd Each Nostril Daily(AM),Indications: as needed, Reported on 06/02/2023 Assure ID Duo Pro Pen [place] 31G X 5 MM (Insulin Pen Needle) [...] sinus surgery. 48 Tablet 0 06/30/2023 Active Additional Information Patient not taking.Reported on 08/04/2023 Chlorhexidine Gluconate 0.12 % Mouth/Throat Solution (Periogard) [...] the morning. 30 Capsule 2 07/27/2023 Active documented as of this encounter (statuses as of 08/04/2023) Active Problems Problem Noted Date Diagnosed Date [...] as of this encounter (statuses as of 08/04/2023) Resolved Problems Problem Noted Date Diagnosed Date Resolved Date Stage 3b chronic kidney disease (CKD) 02/09/2022 05/20/2022 Diabetic retinopathy associa nasra with type 2 diabetes mellitus 02/09/2022 05/20/2022 documented as of this encounter (statuses as of 08/04/2023) Immunizations Name Administration Dates Next Due COVID-19 mRNA, LNP-s, No Pre serve, 2-Dose Series ([employer]) 02/01/2021,07/09/2020,06/16/2020 COVID-19, LNP-s, No Preserve , Perfecto-sucrose, Ages 12+ ([employer]) 07/05/2023,11/01/2021 Covid-19, Mrna, Lnp-s, Pf, B ivalent, [...] Pressure - - Pulse - - Temperature 36.4 C (97.6 F) 08/04/2023 10:17 AM E DT Respiratory Rate - - Oxygen Saturation - - Inhaled Oxygen Concentration - - Weight 103.9 kg (229 lb) 08/04/2023 10:17 AM EDT Height 152.4 cm (5') 08/04/2023 10:17 AM EDT Body Mass Index 44.72 08/04/2023 10:17 AM EDT documented in this encounter Progress Notes * Pat Umaña MD - 08/04/2023 10:00 AM EDT Patient returns today s/p RIGHT FESS. [...] of separately billed services. Pat Umaña MD [facility] Otolaryngology - Head and Neck [place], [place] 08/04/2023 9:19 AM documented in this encounter Nursing Notes * Kannan Thomas CMA - 08/04/2023 10:15 AM EDT Chief Complaint Patient presents with Post-Op 1 WEEK POST OP SINUS Tasha Sauer is a 72 year old female who presents today for a 2 week post op visit after endoscopic sinus surgery. She states that she has not been doing saline rinses. She states that her nose andssinuses are doing well and she denies pain. DATE OF PROCEDURE: 07/18/2023 PRE-OP DIAGNOSIS: right CRS POST-OP DIAGNOSIS: Same PROCEDURE: Procedure(s): STEREOTACTIC CRANIAL EXTRADURAL NAVIGATION FRACTURE OF NASAL TURBINATES THERAPEUTIC NASAL SINUS ENDOSCOPY WITH ETHMOIDECTOMY TOTAL NASAL SINUS ENDOSCOPY SPHENOIDOTOMY REMOVE TISSUE SURGEON: PAT UMAÑA MD documented in this encounter Plan of Treatment Upcoming Encounters Date Type Department Care Team (Late st Contact Info) Description 08/11/2023 11:00 AM EDT Office Visit Orthopaedics [facility] [address] [place] [address] Zia Monsalve MD [address] [place] [address] 08/18/2023 10:45 AM EDT Office Visit Otolaryngology [facility] [address] [place] [address] Pat Umaña MD [address] [place] [address] 08/29/2023 2:00 PM EDT Office Visit Pharmacy, [facility] [address] [place] [address] [facility] [address] [place] [address] 09/21/2023 2:00 PM EDT Office Visit Nephrology, [facility] [address] [place] [address] Juan Tovar MD [address] [place] [address] 09/21/2023 3:30 PM EDT Telemedicine Psychiatry, [facility] [address] [place] [address] Filemon Medina CRNP [address] [place] [address] 10/31/2023 2:20 PM EDT Office Visit Sleep Disorders Ctr [facility] [address] [facility] [place] [phone] Sofia Romo DO [address] [place] [address] 12/28/2023 3:20 PM EDT Office Visit Family Practice [facility] [address] [place] [address] Ghada Salazar MD [address] [place] [address] Health Maintenance Due Date Last Done Comments [...] Ended) 2023 12/17/2021, 01/25/2021 Hgb 12/30/2023 12/29/2022, 0 11/2022, 09/20/2022, Additional history exists Phosphate 12/30/2023 12/29/2022, 0 11/2022, 02/18/2022 Nephrology Referral 01/20/2024 01/19/2023 Diabetic [...] this encounter Medical Devices Implanted Type Area Senior Human Resources Representative Device Identifier Shelf Expiration Date Model / Serial / Lot Mometasone Furoate Implant Min - [id number] Implanted:Qty: 1 on 07/18/2023 by Pat Umaña MD at OR [facility] Right: Nose [employer] 05/03/2024 [id number] / / [id number] documented as of this encounter Visit Diagnoses Diagnosis Chronic sphenoidal sinusitis- Primary documented in this encounter Care Teams Leakage Tester Relationship Specialty Start Date End Date Ghada Salazar MD [address] [place] [address] PCP - General Internal Medicine 04/04/22 documented as of this encounter
--- OUTSIDE RECORDS SUMMARY | 2023-09-09 23:41 | External Medical Summary | Summary of Care ---
Author Name Unknown Organization [facility] Address [address] [facility] [address] Phone [phone] Care Team Providers Care Industrial Recruiter Name Role Phone Ghada Salazar MD Primary Care Provider Reason for Visit * Reason Onset Date Comments Advice 05/26/2023 Encounter Details Date Type Department Care Team (Late st Contact Info) Description 05/26/2023 Telephone Family Practice [facility] [address] [place] [id number] Ghada Salazar MD [address] [place] [address] Advice Allergies No known active allergiesdocumented as of this encounter (statuses as of 08/25/2023) Medications Medication Sig Dispensed Refills Start Date End Date Status Aspirin EC 81 MG Oral Tablet Delayed ReleaseIndicatio ns:Type 2 diabetes mellitus with hemoglobin A1c goal of less than 7.0% ([facility]) Take 1 Tablet by mouth in the morning. 0 Active B-12 500 MCG Oral TabletIndication s:B12 deficiency Take by mouth . 0 Act ted D3 5000 125 MCG (5000 UT) Oral Capsule (Cholecalciferol )Indications:Vit rhodes D deficiency Take 1 Capsule by mouth in the morning. 0 Active Acetaminophen 325 MG Oral Tablet Take 1 Tablet by mouth every 6 hours as needed for Pain, Moderate. 0 Active Toujeo Max SoloStar 300 UNIT/ML Subcutaneous Solution Pen-injector (Insulin Glargine (2 Unit Dial))Indication s:Type 2 diabetes mellitus with hemoglobin A1c goal of less than 7.0% (HCC) Inject 16 Units under the skin every morning. 15 mL 3 3 Active Additional Information Patient taking differently:16 Units SubcutaneousDaily(Non-Specified), Indications: in afternoon, Reported on 06/02/2023 Fish Oil 1000 MG Oral Capsule Delayed Release Take 1 Capsule by mouth in the morning. 0 Active Cetirizine HCl 10 MG Oral Tablet Chewable (ZyrTEC)Indicati ons:as needed Take 1 Tablet by mouth in the morning. 0 Active oxyBUTYnin Chloride 5 MG Oral Tablet (Ditropan)Indica tions:Overactive bladder TAKE 1 TABLET BY MOUTH EVERY DAY IN THE MORNING 90 Tablet 3 4 Active Rosuvastatin Calcium 10 MG Oral Tablet (Crestor)Indicat ions:Dyslipidemi a, goal LDL below 100 Take 1 Tablet by mouth every evening. 90 Tablet 1 4 Active Insulin Lispro (1 Unit Dial) 100 UNIT/ML Subcutaneous Solution Pen-injector (HumaLOG KwikPen)Indicati ons:Type 2 diabetes mellitus with hemoglobin A1c goal of less than 7.0% (HCC) Inject 12 Units under the skin in the morning and 12 Units at noon and 12 Units in the evening. Inject before meals. 15 mL 3 3 07/15/19 24 Discontinued(Ref ill) amLODIPine Besylate 5 MG Oral Tablet (Norvasc)Indicat ions:HTN, goal below 130/80 Take 1 Tablet by mouth in the morning. 30 Tablet 11 3 06/29/19 24 Discontinued(Ref ill) BD Pen Needle Short U/F 31G X 8 MM (Insulin Pen Needle)Indicatio ns:Type 2 diabetes mellitus with hemoglobin A1c goal of less than 7.0% (HCC) Use to inject insulin 5 times daily 200 Each 3 3 06/14/19 24 Discontinued(Med ication/Dose Changed) Gabapentin 600 MG Oral Tablet (Neurontin) Take 1 Tablet by mouth in the morning and 1 Tablet before bedtime. 60 Tablet 5 3 06/29/19 24 Discontinued(Ref ill) Telmisartan 80 MG Oral Tablet (Micardis)Indica tions:HTN, goal below 130/80 TAKE 1 TABLET BY MOUTH EVERY DAY IN THE MORNING 90 Tablet 1 3 06/29/19 24 Discontinued(Ref ill) FLUoxetine HCl 20 MG Oral Capsule (PROzac) Take 1 Capsule by mouth in the morning. 30 Capsule 2 3 06/01/19 24 Discontinued documented as of this encounter (statuses as of 08/25/2023) Active Problems Problem Noted Date Diagnosed Date [...] as of this encounter (statuses as of 08/25/2023) Resolved Problems Problem Noted Date Diagnosed Date Resolved Date Stage 3b chronic kidney disease (CKD) 02/09/2022 05/20/2022 Diabetic retinopathy associa nasra with type 2 diabetes mellitus 02/09/2022 05/20/2022 documented as of this encounter (statuses as of 08/25/2023) Immunizations Name Administration Dates Next Due COVID-19 mRNA, LNP-s, No Pre serve, 2-Dose Series ([employer]) 02/01/2021,07/09/2020,06/16/2020 COVID-19, LNP-s, No Preserve , Perfecto-sucrose, Ages 12+ ([employer]) 11/01/2021 Covid-19, Mrna, Lnp-s, Pf, B ivalent, 30 Mcg, IM, 12 yrs and above ([employer]) 10/06/2022,01/06/2022 HEP A - Hepatitis A (Adult [...] Tobacco: Never Alcohol Use Standard Drinks/Week Comments Not Currently 0 (1 standard drink = 0.6 oz [...] encounter Miscellaneous Notes * Telephone Encounter - Calderon Andujar OSA - 05/29/2023 1:10 PM EST Pt called and scheduled acute appt * Telephone Encounter - Calderon Andujar OSA - 05/29/2023 10:19 AM EST LMOM for pt to schedule acute appt for tomorrow if needed * Telephone Encounter - Kristy Rooney MED ASSIST - 05/29/2023 7:57 AM EST Cough for 3+ weeks. Please schedule office visit. * Telephone Encounter - Sudhir-Agapito Mattson OSA - 05/26/2023 2:04 PM EST Please call patient or daughter in reference to cough. Daughter- Josselyn Romo [phone] documented in this encounter Plan of Treatment Upcoming Encounters Date Type Department Care Team (Late st Contact Info) Description 08/29/2023 12:30 PM EDT Office Visit Orthopaedics [facility] [address] [place] [address] Zia Monsalve MD [address] [place] [address] 08/29/2023 2:00 PM EDT Office Visit Pharmacy, [facility] [address] [place] [address] [facility] [address] [place] [address] 09/06/2023 10:30 AM EDT Imaging Radiology [facility] [address] [facility] [address] [place] [address] 09/21/2023 2:00 PM EDT Office Visit Nephrology, [facility] [address] [facility] [place] [address] Juan Tovar MD [address] [place] [address] 09/21/2023 3:30 PM EDT Telemedicine Psychiatry, [facility] [address] [place] [address] Filemon Medina CRNP [address] [place] [address] 09/22/2023 3:45 PM EDT Telemedicine Orthopaedics [facility] [address] [place] [address] Zia Monsalve MD [address] [place] [address] 10/10/2023 1:30 PM EDT Office Visit Interventional Pain Center, [facility] [address] [place] [address] Edgar Forde, DO [address] [place] [address] 12/28/2023 3:20 PM EDT Office Visit Family Practice [facility] [address] [place] [address] Ghada Salazar MD [address] [place] [address] 02/13/2024 10:40 AM EDT Office Visit Sleep Disorders Ctr [facility] [address] [place] [address] Sofia Romo, DO [address] [place] [address] Health Maintenance Due Date Last Done Comments [...] this encounter Medical Devices Implanted Type Area Corporate Planning Manager Device Identifier Shelf Expiration Date Model / Serial / Lot Mometasone Furoate Implant Min - [id number] Implanted:Qty: 1 on 07/18/2023 by Pat Umaña MD at OR [facility] Right: Nose [employer] 05/03/2024 [id number] / / [id number] documented as of this encounter Care Teams Industrial Recruiter Relationship Specialty Start Date End Date Ghdaa Salazar MD [address] [place] [address] PCP - General Internal Medicine 04/04/22 documented as of this encounter
--- OUTSIDE RECORDS SUMMARY | 2023-09-09 23:41 | External Medical Summary | Summary of Care ---
Author Name Unknown Organization [facility] Address [address] [place] [address] Phone [phone] Care Team Providers Care Veterinary Toxicologist Name Role Phone Ghada Salazar MD Primary Care Provider Reason for Visit * Reason Comments Depression Encounter Details Date Type Department Care Team (Late st Contact Info) Description 07/27/2023 2:00 PM EDT Telemedicine Psychiatry, [facility] [address] [place] [address] Filemon Medina CRNP [address] [place] [address] Major depressive disorder, single episode, moderate (HCC)* Allergies No known active allergiesdocumented as of this encounter (statuses as of 07/27/2023) Medications Medication Sig Dispensed Refills Start Date End Date Status Aspirin EC 81 MG Oral Tablet Delayed ReleaseIndication s:Type 2 diabetes mellitus with hemoglobin A1c goal of less than 7.0% (HCC) Take 1 Tablet by mouth in the morning. 0 Active B-12 500 MCG Oral TabletIndications :B12 deficiency Take by mouth . 0 Acti ve D3 5000 125 MCG (5000 UT) Oral Capsule (Cholecalciferol) Indications:Vitam in D deficiency Take 1 Capsule by mouth in the morning. 0 Active Acetaminophen 325 MG Oral Tablet Take 1 Tablet by mouth every 6 hours as needed for Pain, Moderate. 0 Active Toujeo Max SoloStar 300 UNIT/ML Subcutaneous Solution Pen-injector (Insulin Glargine (2 Unit Dial))Indications :Type 2 diabetes mellitus with hemoglobin A1c goal of less than 7.0% ([facility]) Inject 16 Units under the skin every morning. 15 mL 3 04/28/2022 Active Additional Information Patient taking differently:16 Units SubcutaneousDaily(Non-Specified), Indications: in afternoon, Reported on 06/02/2023 Fish Oil 1000 MG Oral Capsule Delayed Release Take 1 Capsule by mouth in the morning. 0 Active Cetirizine HCl 10 MG Oral Tablet Chewable (ZyrTEC)Indicatio ns:as needed Take 1 Tablet by mouth in the morning. 0 Active oxyBUTYnin Chloride 5 MG Oral Tablet (Ditropan)Indicat ions:Overactive bladder TAKE 1 TABLET BY MOUTH EVERY DAY IN THE MORNING 90 Tablet 3 05/05/2023 Active Rosuvastatin Calcium 10 MG Oral Tablet (Crestor)Indicati ons:Dyslipidemia, goal LDL below 100 Take 1 Tablet by mouth every evening. 90 Tablet 1 05/10/2023 Active Fluticasone Propionate 50 MCG/ACT Nasal Suspension (Flonase)Indicati ons:Post-nasal drip Administer 2 Sprays into each nostril in the morning. 9.9 mL 3 05/29/2023 Active Additional Information Patient taking differently:2 [place] Each Nostril Daily(AM),Indications: as needed, Reported on 06/02/2023 Assure ID Duo Pro Pen Pedro 31G X 5 MM (Insulin Pen Needle) Use pen needles for insulin injection three times daily E11.9 300 Each 3 06/16/2023 Active amLODIPine Besylate 5 MG Oral Tablet (Norvasc)Indicati ons:HTN, goal below 130/80 Take 1 Tablet by mouth in the morning. 30 Tablet 11 06/29/2023 Active Gabapentin 600 MG Oral Tablet (Neurontin) Take 1 Tablet by mouth in the morning and 1 Tablet before bedtime. 60 Tablet 5 06/29/2023 Active Telmisartan 80 MG Oral Tablet (Micardis)Indicat ions:HTN, goal below 130/80 TAKE 1 TABLET BY [...] the morning. 30 Capsule 2 07/27/2023 Active FLUoxetine HCl 20 MG Oral Capsule (PROzac) Take 1 Capsule by mouth in the morning. 90 Capsule 1 06/01/2023 07/27/19 24 Discontinued FLUoxetine HCl 10 MG Oral Capsule (PROzac) Take 1 Capsule by mouth in the morning. Take with 20mg capsule for total daily dose of 10mg. 90 Capsule 1 06/01/2023 07/27/19 24 Discontinued documented as of this encounter (statuses as of 07/27/2023) Active Problems Problem Noted Date Diagnosed Date [...] as of this encounter (statuses as of 07/27/2023) Resolved Problems Problem Noted Date Diagnosed Date Resolved Date Stage 3b chronic kidney disease (CKD) 02/09/2022 05/20/2022 Diabetic retinopathy associa nasra with type 2 diabetes mellitus 02/09/2022 05/20/2022 documented as of this encounter (statuses as of 07/27/2023) Immunizations Name Administration Dates Next Due COVID-19 mRNA, LNP-s, No Pre serve, 2-Dose Series ([employer]) 02/01/2021,07/09/2020,06/16/2020 COVID-19, LNP-s, No Preserve , Perfecto-sucrose, Ages 12+ (Pfizer) 07/05/2023,11/01/2021 Covid-19, Mrna, Lnp-s, Pf, B ivalent, 30 Mcg, IM, 12 yrs and above ([employer]) 10/06/2022,01/06/2022 HEP A - Hepatitis A (Adult [...] on file documented as of this encounter Progress Notes * Filemon Medina CRNP - 07/27/2023 2:03 PM EDT Patient Location: HOME. I was not in a hospital or clinic location. After connecting through [employer], patient was verified with two unique identifiers. 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 Methods to assure confidentiality were taken. Patient acknowledged consent and understanding of privacy and security of the Telemedicine visit. The patient agreed to participate. PSYCHOTHERAPY & MEDICATION MANAGEMENT RETURN VISIT NOTE Psychiatry, [address] [facility] [place] [address] 07/27/2023 Tasha Sauer CHIEF COMPLAINT: Depressed mood INTERVAL HISTORY: Tasha Sauer is a 72 year old female presenting today for a follow-up appointment. Pt reports having recent nasal surgery for sinus blockage and recovering from this. Otherwise "justmore of the same, I question the.. my whole being. Nothing ever seems to change, and I don't see the possibility.. so how am I ever to feel totally ok about life again." Identifies her own goal of "just generally to have things to look forward to, and to get to have my own free will to move about, w hen I don't feel like that's possible." Feels mobility is "one reason I can't get out and about." Struggling with sciatic pain. Describes current mobility with walker use in the home, and feels overall balance is "becoming worse." Sometimes for long distances, she requires a wheelchair. 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 Pts daughter Josselyn present for appointment. She has looked into various resources for pt, but feelspt doesn't seem interested in engaging in these services. She has a helper that comes in during theweek named Thania, who helps transport her to groceries, shopping, house upkeep. Seems to have anticipatory anhedonia. "All I've been wanting to do lately is sleep." Since increasing Prozac daily dosing, she cannot identify any major changes. "It doesn't seem different." MEDICATION SIDE EFFECTS: denies OBJECTIVE DATA: COLUMBIA-SUICIDE SEVERITY RATING SCALE: - Have you ever wished that you were , or not alive anymore? denies - Have you actually had thoughts about killing yourself? denies - Have you been thinking about how you might do this? denies - Have you had these thoughts and had some intention of acting on them? denies - Have you started to work out or worked out the details of how to kill yourself? denies - Do you intend to carry out this plan? denies - Have you done anything, started to do anything, or prepared to do anything to end your life? denies Low Risk: Reviewed a crisis plan with patient including calling the suicide hotline, calling their local crisis number, using the crisis text line, or calling the department of psychiatry phone number. Discussed risks/protective factors and reasons for living. ROS EXAM: Negative except as described above SUBSTANCE USE: Rarely will have a drink with dinner Denies otherwise RELEVANT CHANGES IN PAST PSYCHIATRIC, MEDICAL, FAMILY OR SOCIAL HX: As described above CURRENT MEDS: Current Outpatient Medications Medication Sig Dispense Refill Aspirin EC 81 MG Oral Tablet Delayed Release Take 1 Tablet by mouth in the morning. B-12 500 MCG Oral Tablet Take by mouth . D3 5000 125 MCG (5000 UT) Oral Capsule (Cholecalciferol) Take 1 Capsule by mouth in the morning. Acetaminophen 325 MG Oral Tablet Take 1 Tablet by mouth every 6 hours as needed for Pain, Moderate. Toujeo Max SoloStar 300 UNIT/ML Subcutaneous Solution Pen-injector (Insulin Glargine (2 Unit Dial))Inject 16 Units under the skin every morning. (Patient taking differently: Inject 16 Units under the skin daily.) 15 mL 3 Fish Oil 1000 MG Oral Capsule Delayed Release Take 1 Capsule by mouth in the morning. Cetirizine HCl 10 MG Oral Tablet Chewable (ZyrTEC) Take 1 Tablet by mouth in the morning. oxyBUTYnin Chloride 5 MG Oral Tablet (Ditropan) TAKE 1 TABLET BY MOUTH EVERY DAY IN THE MORNING 90 Tablet 3 Rosuvastatin Calcium 10 MG Oral Tablet (Crestor) Take 1 Tablet by mouth every evening. 90 Tablet 1 Fluticasone Propionate 50 MCG/ACT Nasal Suspension (Flonase) Administer 2 Sprays into each nostril in the morning. (Patient taking differently: Administer 2 Sprays into each nostril in the morning.) 9.9 mL 3 FLUoxetine HCl 20 MG Oral Capsule (PROzac) Take 1 Capsule by mouth in the morning. 90 Capsule 1 FLUoxetine HCl 10 MG Oral Capsule (PROzac) Take 1 Capsule by mouth in the morning. Take with 20mg capsule for total daily dose of 10mg. 90 Capsule 1 Assure ID Duo Pro Pen Pedro 31G X 5 MM (Insulin Pen Needle) Use pen needles for insulin injectionthree times daily E11.9 300 Each 3 amLODIPine Besylate 5 MG Oral Tablet (Norvasc) Take 1 Tablet by mouth in the morning. 30 Tablet 11 Gabapentin 600 MG Oral Tablet (Neurontin) Take 1 Tablet by mouth in the morning and 1 Tablet beforebedtime. 60 Tablet 5 Telmisartan 80 MG Oral Tablet (Micardis) TAKE 1 TABLET BY MOUTH EVERY DAY IN THE MORNING 90 Tablet 1 predniSONE 10 MG Oral Tablet (Deltasone) Take 6 tab daily x 3 days, then 4 tab daily x 3 days, 3 tab daily x 3 days, 2 tab daily x 3 days, then 1 tab daily x 3 days.Start 4 days prior to your sinus surgery. 48 Tablet 0 Chlorhexidine Gluconate 0.12 % Mouth/Throat Solution (Periogard) RINSE AND SPIT OUT WITH 1 CAPFUL TWICE A DAY FOR 30 SECONDS HumaLOG KwikPen 100 UNIT/ML Subcutaneous Solution Pen-injector Inject 18 Units under the skin in the morning and 18 Units at noon and 18 Units in the evening. Inject with meals. 15 mL 3 No current facility-administered medications for this visit. ALLERGIES: Review of patient's allergies indicates: No Known Allergies RECENT LABORATORY DATA: see chart MENTAL STATUS EXAMINATION: Appearance: age-appropriate and casually dressed Muscle strength/tone and motor behavior: normal muscle strength and tone Gait and Station: no abnormalities noted and not tested Personal Presentation: open and friendly, candid and cooperative. Speech: normal, rate, tone and volume Mood: neutral Affect: type - euthymic; range - full range; lability - no Associations: intact Thought Process: goal directed Abstract Reasoning: intact Thought Content: denies suicidal ideations, homicidal ideations, auditory hallucinations, visual hallucinations, delusions, impulsivity to act out or preoccupation with violence Orientation: alert and oriented to person, place, time and situation Recent and remote memory as evidenced by recall of recent circumstances and remote life events: intact Language as evidenced by ability to repeat phrase and name object: intact Fund of knowledge as evidenced by vocabulary and current/historical events: intact Attention span/concentration as evidenced by: ability to sustain attention to examiner - intact andfollowing conversation - intact Insight: fair Judgment: fair FORMULATION: Tasha Sauer is a 72 year old female with presenting symptoms of Major Depressive Disorder. Retired from career 6 years ago and per daughter has experienced some depressive symptoms since that time, worsened during isolation of COVID. Several past antidepressant trials with little to no therapeutic response including Celexa, Lexapro, Prozac, Paxil, Wellbutrin although dosing and duration of trials are unclear. Denies history of inpatient treatment, suicide attempt, or substance abuse. Recently moved into new home where she lives a lone but daughter lives close by. Medical history includes DM2, HLD, and CKD3 so there are concerns about minimizing additional risk. ASSESSMENT - DIAGNOSIS: - MDD, single episode, moderate PLAN: - Increase Prozac 40mg daily - Encourage outpatient therapy targeting depression, recommend CBT specifically or group therapy thru [facility]. "I'm highly resistant to the therapy avenue.. I'm not ready yet." Encourage pt take small gradual steps towards establishing a consistent daily routine, with time dedicated to socialization and connecting with others - Risks/benefits of currently prescribed psychiatric medications discussed, verbalized understanding - I have reviewed the patients controlled substance dispensing history in the Prescription Drug Monitoring Program in compliance with the [facility] regulations before prescribing a controlled substance. Crisis Planning: Tasha Sauer has been provided with Psychiatry emergency telephone numbers, including crisis number, text suicide hotline and suicide hotline. The crisis plan was reviewed and updated if necessary based on the information above. Side effects of the medication were explained, and the patient understands the risks and benefits of using the medication.Patient cautioned not to drive, operate heavy machinery, or participate in other tasks requiring full cognitive alertness until they know how new medications will affect them. Pt encouraged to keep all medications out of the reachof children. Psychoeducation was provided. Discussed risks, expected benefits, and potential adverse effects from these medications. The benefits outweigh the risks.The patient participated in the development of the treatment plan, verbalized understanding, voices no concerns and is agreeable to the treatment plan. Risk Assessment: Risk assessment was performed for Tasha Sauer. This is a patient being treated for chronic mental health conditions as characterized above; at the time of this visit, there was no indication that this patient was either a risk to self, others, or gravely disabled by symptoms of amental illness. At the time of this evaluation, there were enough protective factors in place and it was deemed safe to continue with treatment on a outpatient basis with return to clinic in the timeframe described above. Health Maintenance: Tasha Sauer was encouraged to keep up to date on regular health maintenance per her primary care provider. Encouraged to keep active in productive hobbies and exercise. This helps manage emotions, improve sleep, wellbeing and overall health. Pt was cautioned to not drink alcohol or use illicit drugs as these can make mood symptoms worse by blocking the effects of prescribed medications. Avoid tobacco, which contains nicotine. Limit caffeine use. Caffeine and Nicotine are stimulants that can cause difficulty with sleep. Lack of sleep can then worsen anxiety and depression. Return in 8 weeks or sooner as needed. Time Spent on Visit total: 30 minutes - including preparing to see the patient, reviewing history, performing evaluation, counseling/educating patient, ordering medications/tests, documenting clinical information. 22 minutes was spent on counseling including active listening, supportive therapy, self-care, and reflection Filemon Medina, MSN, KAUR, PMHNP- Nurse Practitioner - Outpatient Psychiatry [facility] - [place] 07/27/2023 documented in this encounter Plan of Treatment Upcoming Encounters Date Type Department Care Team (Late st Contact Info) Description 08/04/2023 10:00 AM EDT Office Visit Otolaryngology [facility] [address] [place] [address] Pat Umaña MD [address] [place] [address] 08/18/2023 10:45 AM EDT Office Visit Otolaryngology [facility] [address] [place] [address] Pat Umaña MD [address] [place] [address] 08/29/2023 2:00 PM EDT Office Visit Pharmacy, [facility] [address] [place] [address] [facility] [address] [place] [address] 09/21/2023 2:00 PM EDT Office Visit Nephrology, Alber Dang [address] [facility] [address] Juan Tovar MD [address] [facility] [place] [address] 09/21/2023 3:30 PM EDT Telemedicine Psychiatry, [facility] [address] [place] [address] Filemon Medina CRNP [address] [place] [address] 10/31/2023 2:20 PM EDT Office Visit Sleep Disorders Ctr [facility] [address] [place] [phone] Sofia Romo DO [address] [place] [address] 12/28/2023 3:20 PM EDT Office Visit Family Practice [facility] [address] [place] [address] Ghada Salazar MD [address] [place] [address] Health Maintenance Due Date Last Done Comments [...] Ended) 2023 12/17/2021, 01/25/2021 Phosphate 12/30/2023 12/29/2022, 06/0 11/2022, 02/18/2022 Nephrology [...] this encounter Medical Devices Implanted Type Area Hand Edge Bander Device Identifier Shelf Expiration Date Model / Serial / Lot Mometasone Furoate Implant Min - [id number] Implanted:Qty: 1 on 07/18/2023 by Pat Umaña MD at [facility] Right: Nose [employer] 05/03/2024 [id number] / / [id number] documented as of this encounter Visit Diagnoses Diagnosis Major depressive disorder, single episode, moderate (HCC)- Primary Major depressive disorder, single episode, moderate documented in this encounter Care Teams Veterinary Toxicologist Relationship Specialty Start Date End Date Ghada Salazar MD [address] [place] [address] PCP - General Internal Medicine 04/04/22 documented as of this encounter
--- OUTSIDE RECORDS SUMMARY | 2023-09-09 23:41 | External Medical Summary | Summary of Care ---
Author Name Unknown Organization [facility] Address [address] [place] [address] Phone [phone] Care Team Providers Care Senior Cytotechnologist Name Role Phone Ghada Salazar MD Primary Care Provider Reason for Referral * Evaluate & Treat - Unlimited Visits (Within 10 days (routine)) - Authorized Specialty Diagnoses / Procedures Referred By Contac t Referred To Contact Pain Management / Pain Medicine Diagnoses Radicular leg pain Osteoarthritis of spine with radiculopathy, lumbar region Zia Monsalve MD [address] [place] [address] Referral ID Status Reason Start Date Expiration Date Visits Requested Visits Authorized [id number] Authorized Specialty Services Required 08/11/2023 999 999 Question Answer Referral Priority Within 10 days (routine) Where should this appointment be scheduled? [facility] Reason for referral? Interventional Pain Management - (Injection) What condition is the patient being referred for? Lumbar Radiculopathy What is the preferred location to have this test performed? [facility] Comments Patient Name: Tasha Sauer Date of : 1950 Department Phone Number: MRI or CT (if unable to have a MRI) is recommended if any of the following apply: 1. Patient has neck or back pain with radiation to extremities. A previous MRI will be accepted if symptoms unchanged since prior MRI. 2. Spinal surgery since last MRI. If yes, order a MRI with and without contrast. 3. Hx or ongoing cancer treatment. Patient will need spine x-ray (Ap/Lat) for axial neck or back pain if not done previously. Fax No. [facility] [phone] or contact front end application developer [phone] Fax No. [facility] [phone] or contact front end application developer [phone] Fax No. [facility] [phone] or contact front end application developer [phone] * Precert (Within 10 days (routine)) - Authorized Specialty Diagnoses / Procedures Referred By Contac t Referred To Contact Radiology Diagnoses Radicular leg pain Osteoarthritis of spine with radiculopathy, lumbar region Procedures MRI L SPINE WO CONTRAST Zia Monsalve MD [address] [place] [address] Referral ID Status Reason Start Date Expiration Date V isits Requested Visits Authorized [id number] Authorized 08/11/2023 999 999 Reason for Visit * Reason Comments NEW PATIENT Pain L Hip * Evaluate & Treat - Unlimited Visits (Within 10 days (routine)) - Authorized Specialty Diagnoses / Procedures Referred By Contac t Referred To Contact Orthopaedic Surgery / Orthopedics Diagnoses Hip pain, left Ghada Salazar MD [address] [place] [address] Referral ID Status Reason Start Date Expiration Date Visits Requested Visits Authorized [id number] Authorized Specialty Services Required 07/31/2023 999 999 Encounter Details Date Type Department Care Team (Latest Contact Info) Description 08/11/2023 11:00 AM EDT Office Visit Orthopaedics [facility] [address] [place] [address] Zia Monsalve MD [address] [place] [address] Hip pain, left*; Radicular leg pain; Osteoarthritis of spine with radiculopathy, lumbar region; Primary osteoarthritis of left hip Allergies No known active allergiesdocumented as of this encounter (statuses as of 08/15/2023) Medications Medication Sig Dispensed Refills Start Date [...] 05/29/2023 Active Additional Information Patient taking differently:2 [place] Each Nostril Daily(AM),Indications: as needed, Reported on 06/02/2023 Assure ID Duo Pro Pen Dixon 31G X 5 MM (Insulin Pen Needle) [...] the morning. 30 Capsule 2 07/27/2023 Active Hospital, Clinic, or Other Facility Administered Medication Ordered Dose Route Frequency Start Date End Date Status lidocaine 1% 1 mL - triamcinolone acetonide 40 mg/mL 1 mL inj 2 mLIndications:Primary osteoarthritis of left hip 2 mL IJ ONCE 08/11/2023 Ended documented as of this encounter (statuses as of 08/15/2023) Active Problems Problem Noted Date Diagnosed Date [...] as of this encounter (statuses as of 08/15/2023) Resolved Problems Problem Noted Date Diagnosed Date Resolved Date Stage 3b chronic kidney disease (CKD) 02/09/2022 05/20/2022 Diabetic retinopathy associa nasra with type 2 diabetes mellitus 02/09/2022 05/20/2022 documented as of this encounter (statuses as of 08/15/2023) Immunizations Name Administration Dates Next Due COVID-19 mRNA, LNP-s, No Pre serve, 2-Dose Series ([employer]) 02/01/2021,07/09/2020,06/16/2020 COVID-19, LNP-s, No Preserve , Perfecto-sucrose, Ages 12+ (Pfizer) 07/05/2023,11/01/2021 Covid-19, Mrna, Lnp-s, Pf, B ivalent, 30 Mcg, IM, 12 yrs and above ([employer]) 10/06/2022,01/06/2022 HEP A - Hepatitis A (Adult [...] as of this encounter Progress Notes * Zia Monsalve MD - 08/11/2023 11:06 AM EDT Tasha Sauer [id number] Tasha Sauer is a 72 year old female who presents for consultation for left hip injury/pain to [facility]. Consult requested by Ghada Salazar MD. Tasha Sauer is here with his/her daughter Quality: reviewed and agree with Nursing Notes for HPI elements History: History - Pt presents today with c/o L Hip pain -Pt c/o /10 pain today -Pt is accompanied today by her Daughter -Pt has had a few falls within last 6 mos -xray L Hip Notes pain can be in the back but also radiate down the thigh ROS: ROS per HPI otherwise non-contributory Past Medical History: Diagnosis Date Dental disease Diabetic retinopathy associated with type 2 diabetes mellitus ([facility]) 02/09/2022 Dizziness Dyslipidemia, goal LDL below 100 02/09/2022 Fatigue HTN (hypertension) Motion sickness Obesity PONV (postoperative nausea and vomiting) Severe episode of recurrent major depressive disorder ([facility]) 02/09/2022 Sleep apnea CPAP - intermittent use Stage 3b chronic kidney disease (CKD) ([facility]) 02/09/2022 Type 2 diabetes mellitus with hemoglobin A1c goal of less than 7.0% ([facility]) 02/09/2022 Vitamin D deficiency 02/09/2022 Family History Problem Relation Age of Onset Other (Cerebral Hemorrhage) Mother Diabetes Mother Hypertension Mother Stroke Mother Other (AAA) Father Breast Cancer Daughter 43 Social History Socioeconomic History Marital status: Single Spouse name: Not on file Number of children: Not on file Years of education: Not on file Highest education level: Not on file Occupational History Not on file Tobacco Use Smoking status: Never Smokeless tobacco: Never Vaping Use Vaping Use: Never used Substance and Sexual Activity Alcohol use: Yes Comment: rarely Drug use: Never Sexual activity: Not Currently Partners: Male Other Topics Concern Not on file Social History Narrative Not on file Social Determinants of Health Financial Resource Strain: Not on file Food Insecurity: No Food Insecurity (02/09/2022) Hunger Vital Sign Worried About Running Out of Food in the Last Year: Never true Ran Out of Food in the Last Year: Never true Transportation Needs: Not on file Physical Activity: Not on file Stress: Not on file Social Connections: Not on file Intimate Partner Violence: Not on file Housing Stability: Not on file Physical Exam Constitutional: Generally well-nourished and in no acute distress Psychiatric: Mood and Affect normal Eyes: EOMI Respiratory: Normal respiratory effort with regular rate and rhythm Cardiovascular: No edema in the affected extremity (s) Hip and Pelvis Exam Gait: Limp: Positive Antalgic: Positive Scars / Previous Surgery or Trauma: None Alignment: Normal Palpation: Tender palpate over the anterior hip joint as well as in the lumbar spine Hernia: No ROM: Flexion (normal 120-130): L - 120, R - 120 Extension (normal 10 to 20): L - 20, R - 20 Internal at 90 (normal 45): L - 15, R - 30 External at 90 (normal 50): L - 30, R - 45 Increase in pain with range of motion of the hip Strength: 5/5 with hip flexion Radiology: 08/11/2023: Three-view x-ray of the left hip including AP pelvis Moderate to severe degenerative changes left hip, mild degenerative changes noted on a single view of the right hip - per my interpretation. Awaiting formal radiology interpretation. 08/11/2023: Four view x-ray lumbar spine including AP lateral flex ex Multilevel degenerative changes including anterolisthesis grade 1 of L3 on L4 and additionally grade 1 of L4 on L5 and question grade 1 anterolisthesis of L5 on S1 without evidence of dynamic instability - per my interpretation. Awaiting formal radiology interpretation. Assessment and Plan: 1) left hip DJD Intra-articular steroid injection performed with ultrasound guidance today 08/11/2023. Telephone follow-up in 3-4 weeks Note: Although hip joint injection was performed with out ultrasound guidance the images were not saved. Therefore I was not able to bill for ultrasound component 2) concern for lumbar stenosis/radiculopathy Significant changes noted on radiograph including multilevel anterolisthesis MRI of the lumbar spine Pain Management consultation Also discussed possibility of orthopedic spine surgery referral. However plan for now is to start with pain management Procedure note (hip injection), left : Time out: Prior to injection, a time out was called to confirm the administration of appropriate medicine, patient name, procedure and confirm to the best of our ability and knowledge the presence of any necessary risks and benefits. Patient verbalizes understanding. Ultrasound utilized to guide injection Ultrasound required due to: patient size (obese) and need to visualize specific joint recess Sterile techinique applied. Skin sterilized with alcohol swab. Hip injected using 3.5 inch, 22 gauge needle. Injected with 1 ml lidocaine 1%, triamcinolone acetonide 40mg/ml 1 ml. Patient tolerated procedure with no significant bleeding or adverse reaction. Patient instructed to call or return to clinic for fever or warmth and redness at injection site for potential infection. Patient also advised as to potential for steroid flare reaction including increased pain and redness at injection site which should be treated with ice and resolve within 24 hours. Zia Monsalve MD Primary Care Sports Medicine Orthopaedics [place] [address] documented in this encounter Nursing Notes * Daija Magallon LPN - 08/11/2023 11:01 AM EDT -NEW Pt presents today with c/o L Hip pain -Pt c/o 6/10 pain today -Pt is accompanied today by her Daughter -Pt has had a few falls within last 6 mos -xray L Hip Lizbeth Lizama LPN documented in this encounter Plan of Treatment Upcoming Encounters Date Type Department Care Team (Late st Contact Info) Description 08/18/2023 10:45 AM EDT Office Visit Otolaryngology [facility] [address] [place] [address] Pat Umaña MD [address] [place] [address] 08/29/2023 12:30 PM EDT Office Visit Orthopaedics [facility] [address] [place] [address] Zia Monsalve MD [address] [place] [address] 08/29/2023 2:00 PM EDT Office Visit Pharmacy, [facility] [address] [facility] [place] [address] [facility] [address] [place] [address] 09/06/2023 10:30 AM EDT Imaging Radiology [facility] [facility] [address] [place] [address] 09/21/2023 2:00 PM EDT Office Visit Nephrology, [facility] [address] [place], [place] [address] Juan Tovar MD [address] [place] [address] 09/21/2023 3:30 PM EDT Telemedicine Psychiatry, [facility] [address] [place] [address] Filemon Medina CRNP [address] [place] [address] 09/22/2023 3:45 PM EDT Telemedicine Orthopaedics [facility] [address] [place] [address] Zia Monsalve MD [address] [place] [address] 10/10/2023 1:30 PM EDT Office Visit Interventional Pain Center, [facility] [address] [place] [address] Edgar Forde, DO [address] [place] [phone] 10/31/2023 2:20 PM EDT Office Visit Sleep Disorders C[facility] [address] [place] [id number] Sofia Romo, DO [address] [place] [address] 12/28/2023 3:20 PM EDT Office Visit Family Practice [facility] [address] [place] [address] Ghada Salazar MD [address] [place] [address] Scheduled Orders Name Type Priority Associated Diagnoses Orde r Schedule MRI L SPINE WO CONTRAST Medical Imaging Routine Radicular leg pain Osteoarthritis of spine with radiculopathy, lumbar region Expected: 08/11/2023, Expires: 09/09/2024 POINT OF CARE US MAJOR JOINT INJECTION, ORTHO Medical Imaging Routine Primary osteoarthritis of left hip Ordered: 08/11/2023 Scheduled Referrals Name Type Priority Associated Diagnoses Orde r Schedule PAIN MEDICINE REFERRAL OP Referral Within 10 days (routine) Radicular leg pain Osteoarthritis of spine with radiculopathy, lumbar region Ordered: 08/11/2023 Health Maintenance Due Date Last Done Comments [...] 09/20/2022, Additional history exists Phosphate 12/30/2023 12/29/2022, 060 11/2022, 02/18/2022 Nephrology Referral 01/20/2024 01/19/2023 Diabetic Eye Exam 03/02/2024 03/02/2023, 02/10/2022 Mammogram 03/29/2024 03/29/2023, 1205/2021, 08/28/2013 Lipid Panel 06/14/2028 06/14/2023, 06/2022, 01/25/2021 [...] this encounter Medical Devices Implanted Type Area Data Modeling Architect Device Identifier Shelf Expiration Date Model / Serial / Lot [employer] Furoate Implant Min - [id number] Implanted:Qty: 1 on 07/18/2023 by Pat Umaña MD at OR [facility] Right: Nose [employer] [facility] 05/03/2024 [id number] / / [id number] documented as of this encounter Procedures Procedure Name Priority Date/Time Associated Diagnosis Comments XR L SPINE COMPLETE Routine 08/11/2023 1 1:19 AM EDT Hip pain, left Radicular leg pain XR HIP UNILAT 2-3 VIEWS INCLUDING AP PELVIS Routine 08/11/2023 11:19 AM EDT Hip pain, left documented in this encounter Results * XR L SPINE COMPLETE (08/11/2023 11:19 AM EDT) Anatomical Region Laterality Modality Vertebra, Lspine Computed Radiog claire 08/11/2023 11:1 5 AM EDT Impressions 08/15/2023 12:03 PM EDT IMPRESSION: Anterolisthesis of L3 on L4 and L4 on L5 which appears to slightly increase with flexion. THIS DOCUMENT HAS BEEN ELECTRONICALLY SIGNED BY KAET MCCALLUM MD Narrative 08/15/2023 12:03 PM EDT PROCEDURE INFORMATION: Exam: XR Lumbosacral Spine Exam date and time: 08/11/2023 11:15 AM Age: 72 years old Clinical indication: Pain in left hip; Radiculopathy, site unspecified; Additional info: [place] for radicular leg pain TECHNIQUE: Imaging protocol: Radiologic exam of the lumbosacral spine. Views: 4 or 5 views. COMPARISON: CR XR HIP UNILAT 2-3 VIEWS INCLUDING AP PELVIS 08/11/2023 11:14 AM FINDINGS: Bones/joints: Anterolisthesis of L3 on L4 and L4 on L5. This increases slightly with flexion.There is scattered endplate sclerosis. Disc space narrowing at L3-L4. The facet joints demonstrate moderate degenerative narrowing and sclerosis. There are no compression fractures or deformities. Soft tissues: Unremarkable. Procedure Note Kate Mccallum MD - 08/15/2023 PROCEDURE INFORMATION: Exam: XR Lumbosacral Spine Exam date and time: 08/11/2023 11:15 AM Age: 72 years old Clinical indication: Pain in left hip; Radiculopathy, site unspecified; Additional info: [place] for radicular leg pain TECHNIQUE: Imaging protocol: Radiologic exam of the lumbosacral spine. Views: 4 or 5 views. COMPARISON: CR XR HIP UNILAT 2-3 VIEWS INCLUDING AP PELVIS 08/11/2023 11:14 AM FINDINGS: Bones/joints: Anterolisthesis of L3 on L4 and L4 on L5. This increasesslightly with flexion.There is scattered endplate sclerosis. Disc space narrowingat L3-L4. The facet joints demonstrate moderate degenerative narrowing and sclerosis. There are no compression fractures or deformities. Soft tissues: Unremarkable. IMPRESSION IMPRESSION: Anterolisthesis of L3 on L4 and L4 on L5 which appears to slightlyincrease with flexion. THIS DOCUMENT HAS BEEN ELECTRONICALLY SIGNED BY KATE MCCALLUM MD Zia Monsalve MD RADIOLOGY ( [facility]) * XR HIP UNILAT 2-3 VIEWS INCLUDING AP PELVIS (08/11/2023 11:19 AM EDT) Anatomical Region Laterality Modality Lower Extremity, Hip, Pelvis Com puted Radiography 08/11/2023 11:1 4 AM EDT Impressions 08/15/2023 12:04 PM EDT IMPRESSION: Degenerative changes of the hips, left greater than right. THIS DOCUMENT HAS BEEN ELECTRONICALLY SIGNED BY KATE MCCALLUM MD Narrative 08/15/2023 12:04 PM EDT PROCEDURE INFORMATION: Exam: XR Left Hip Exam date and time: 08/11/2023 11:14 AM Age: 72 years old Clinical indication: Pain in left hip TECHNIQUE: Imaging protocol: Radiologic exam of the left hip. Views: 2 or 3 views hip with pelvis when performed. COMPARISON: US RENAL 08/18/2022 1:24 PM FINDINGS: Bones/joints: Moderate sclerosis and joint space narrowing of left hip. Small osteophytes of the acetabulum.There is no evidence of malalignment or dislocation. There is no evidence of bony cortex disruption or periostitis. There are moderate degenerative changes of the lumbar spine and sacroiliac joints. There are mild degenerative changes in the right hip joint. Soft tissues: See "Bones/joints" finding. Procedure Note Kate Mccallum MD - 04/30/2024 PROCEDURE INFORMATION: Exam: XR Left Hip Exam date and time: 08/11/2023 11:14 AM Age: 72 years old Clinical indication: Pain in left hip TECHNIQUE: Imaging protocol: Radiologic exam of the left hip. Views: 2 or 3 views hip with pelvis when performed. COMPARISON: US RENAL 08/18/2022 1:24 PM FINDINGS: Bones/joints: Moderate sclerosis and joint space narrowing of left hip.Small osteophytes of the acetabulum.There is no evidence of malalignment or dislocation. There is no evidence of bony cortex disruption orperiostitis. There are moderate degenerative changes of the lumbar spine and sacroiliac joints. There are mild degenerative changes in the right hip joint. Soft tissues: See "Bones/joints" finding. IMPRESSION IMPRESSION: Degenerative changes of the hips, left greater than right. THIS DOCUMENT HAS BEEN ELECTRONICALLY SIGNED BY KATE MCCALLUM MD Zia Monsalve MD RADIOLOGY ( [facility]) documented in this encounter Visit Diagnoses Diagnosis Hip pain, left- Primary Pain in joint, pelvic region and thigh Radicular leg pain Thoracic or lumbosacral neuritis or radiculitis, unspecified Osteoarthritis of spine with radiculopathy, lumbar region Primary osteoarthritis of left hip Primary localized osteoarthrosis, pelvic region and thigh documented in this encounter Administered Medications Inactive Administered Medications - up to 3 most recent administrations Medication Order MAR Action Action Date Dose Rate Site lidocaine 1% 1 mL - triamcinolone acetonide 40 mg/mL 1 mL inj 2 mL 2 mL, Injection, ONCE, On 08/11/23 at 1315, For 1 dose, Lidocaine 1% 1mL Triamcinolone Acetonide 40 mg/mL 1 mL (Final concentration = 20 mg/mL) REFRIGERATE and SHAKE WELL Given 08/11/2023 2:05 PM EDT 2 mL Hip Left documented in this encounter Care Teams Senior Cytotechnologist Relationship Specialty Start Date End Date Ghada Salazar MD [address] [facility] [place] [address] PCP - General Internal Medicine 04/04/22 documented as of this encounter
--- OUTSIDE RECORDS SUMMARY | 2023-09-09 23:41 | External Medical Summary ---
Author Name Unknown Address Unknown Organization : Laboratory Report Ordering Provider Test Date Status SWETHA HIGGINS 07/18/2023 10:50:30 Final Observation Date Value Abnormality Reference (Units ) Status Glucose Point of Care 07/18/2023 10:50:30 166 Above high normal 70-120 (mg/dL) Final Performing Location
--- OUTSIDE RECORDS SUMMARY | 2023-09-09 23:41 | External Medical Summary | Summary of Care ---
Author Name Unknown Organization [facility] Address [address] [facility] [address] Phone [phone] Care Team Providers Care Chemical Engineering Professor Name Role Phone Ghada Salazar MD Primary Care Provider Reason for Visit * Reason Onset Date Comments Advice 05/11/2023 Encounter Details Date Type Department Care Team (Late st Contact Info) Description 05/11/2023 Telephone Family Practice [facility] [address] [place] [phone] Ghada Salazar MD [address] [place] [address] Advice Allergies No known active allergiesdocumented as of this encounter (statuses as of 08/10/2023) Medications Medication Sig Dispensed Refills Start Date End Date Status Aspirin EC 81 MG Oral Tablet Delayed ReleaseIndications :Type 2 diabetes mellitus with hemoglobin A1c goal of less than 7.0% ([facility]) Take 1 Tablet by mouth in the morning. 0 Active B-12 500 MCG Oral TabletIndications: B12 deficiency Take by mouth . 0 Activ e D3 5000 125 MCG (5000 UT) Oral Capsule (Cholecalciferol)I ndications:Vitamin D deficiency Take 1 Capsule by mouth in the morning. 0 Active Acetaminophen 325 MG Oral Tablet Take 1 Tablet by mouth every 6 hours as needed for Pain, Moderate. 0 Active Toujeo Max SoloStar 300 UNIT/ML Subcutaneous Solution Pen-injector (Insulin Glargine (2 Unit Dial))Indications: Type 2 diabetes mellitus with hemoglobin A1c [...] Cetirizine HCl 10 MG Oral Tablet Chewable (ZyrTEC)Indication s:as needed Take 1 Tablet by mouth in the morning. 0 Active oxyBUTYnin Chloride 5 MG Oral Tablet (Ditropan)Indicati ons:Overactive bladder TAKE 1 TABLET BY MOUTH EVERY DAY IN THE MORNING 90 Tablet 3 05/05/2023 Active Rosuvastatin Calcium 10 MG Oral Tablet (Crestor)Indicatio ns:Dyslipidemia, goal LDL below 100 Take 1 Tablet by mouth every evening. 90 Tablet 1 05/10/2023 Active Insulin Lispro (1 Unit Dial) 100 UNIT/ML Subcutaneous Solution Pen-injector (HumaLOG KwikPen)Indication s:Type 2 diabetes mellitus with hemoglobin A1c goal of less than 7.0% ([facility]) Inject 12 Units under the skin in the morning and 12 Units at noon and 12 Units in the evening. Inject before meals. 15 mL 3 04/26/2022 4 Discontinue d(Refill) amLODIPine Besylate 5 MG Oral Tablet (Norvasc)Indicatio ns:HTN, goal below 130/80 Take 1 Tablet by mouth in the morning. 30 Tablet 11 06/29/2022 4 Discontinue d(Refill) Gabapentin 600 MG Oral Tablet (Neurontin) Take 1 Tablet by mouth in the morning and 1 Tablet before bedtime. 60 Tablet 5 11/23/2022 4 Discontinue d(Refill) Telmisartan 80 MG Oral Tablet (Micardis)Indicati ons:HTN, goal below 130/80 TAKE 1 TABLET BY MOUTH EVERY DAY IN THE MORNING 90 Tablet 1 12/30/2022 4 Discontinue d(Refill) documented as of this encounter (statuses as of 08/10/2023) Active Problems Problem Noted Date Diagnosed Date [...] as of this encounter (statuses as of 08/10/2023) Resolved Problems Problem Noted Date Diagnosed Date Resolved Date Stage 3b chronic kidney disease (CKD) 02/09/2022 05/20/2022 Diabetic retinopathy associa nasra with type 2 diabetes mellitus 02/09/2022 05/20/2022 documented as of this encounter (statuses as of 08/10/2023) Immunizations Name Administration Dates Next Due COVID-19 mRNA, LNP-s, No Pre serve, 2-Dose Series ([facility]) 02/01/2021,07/09/2020,06/16/2020 COVID-19, LNP-s, No Preserve , Perfecto-sucrose, Ages 12+ (Pfizer) 11/01/2021 Covid-19, Mrna, Lnp-s, Pf, B ivalent, 30 Mcg, IM, 12 yrs and above ([facility]) 10/06/2022,01/06/2022 HEP A - Hepatitis A (Adult [...] 08/11/2023 11:00 AM EDT Office Visit Orthopaedics [facility] [address] [address] Zia Monsalve MD [address] [place] [address] 08/18/2023 10:45 AM EDT Office Visit Otolaryngology [facility] [address] [address] Pat Umaña MD [address] [place] [address] 08/29/2023 2:00 PM EDT Office Visit Pharmacy, [facility] [address] [address] [address] [facility] [address] [address] 09/21/2023 2:00 PM EDT Office Visit Nephrology, [facility] [address] [place] [address] [address] Juan Tovar MD [address] [place] [address] [address] 09/21/2023 3:30 PM EDT Telemedicine Psychiatry, [facility] [address] [place] [address] Filemon Medina CRNP [address] [place] [address] 10/31/2023 2:20 PM EDT Office Visit [facility] [address] [place] [phone] Sofia Romo DO [address] [place] [address] 12/28/2023 3:20 PM EDT Office Visit Family Practice [facility] [address] [place] [address] Ghada Salazar MD [address] [place] [address] Health Maintenance Due Date Last Done Comments [...] this encounter Medical Devices Implanted Type Area Supervisor Cemetery Workers Device Identifier Shelf Expiration Date Model / Serial / Lot Mometasone Furoate Implant Min - [id number] Implanted:Qty: 1 on 07/18/2023 by Pat Umaña MD at [facility] Right: Nose [employer]TEGRA LIFESCICryoocyte MACK 05/03/2024 [id number] / / [id number] documented as of this encounter Care Teams Chemical Engineering Professor Relationship Specialty Start Date End Date Ghada Salazar MD [address] [place] [address] PCP - General Internal Medicine 04/04/22 documented as of this encounter
--- OUTSIDE RECORDS SUMMARY | 2023-09-09 23:41 | External Medical Summary | Summary of Care ---
Author Name Unknown Organization [facility] Address [address] [facility] [place] [address] Phone [phone] Care Team Providers Care Picc Nurse Name Role Phone Ghada Salazar MD Primary Care Provider Reason for Visit * Reason Onset Date Comments Advice 09/02/2023 Encounter Details Date Type Department Care Team (Late st Contact Info) Description 09/02/2023 Telephone Family Practice [facility] [address] [place] [address] Ghada Salazar MD [address] [place] [address] Advice Allergies No known active allergiesdocumented as of this encounter (statuses as of 09/02/2023) Medications Medication Sig Dispensed Refills Start Date End Date Status Aspirin EC 81 MG Oral Tablet Delayed ReleaseIndications: Type 2 diabetes mellitus with hemoglobin A1c goal of less than 7.0% ([facility]) Take 1 Tablet by mouth [...] goal of less than 7.0% ([facility]) Inject 16 Units under the [...] 05/29/2023 Active Additional Information Patient taking differently:2 [place] Each Nostril Daily(AM),Indications: as needed, Reported on 06/02/2023 Assure ID Duo Pro Pen [place] 31G X 5 MM (Insulin Pen Needle) [...] as of this encounter (statuses as of 09/02/2023) Active Problems Problem Noted Date Diagnosed Date [...] as of this encounter (statuses as of 09/02/2023) Resolved Problems Problem Noted Date Diagnosed Date Resolved Date Stage 3b chronic kidney disease (CKD) 02/09/2022 05/20/2022 Diabetic retinopathy associa nasra with type 2 diabetes mellitus 02/09/2022 05/20/2022 documented as of this encounter (statuses as of 09/02/2023) Immunizations Name Administration Dates Next Due COVID-19 mRNA, LNP-s, No Pre serve, 2-Dose Series ([employer]) 02/01/2021,07/09/2020,06/16/2020 COVID-19, LNP-s, No Preserve , Perfecto-sucrose, Ages 12+ ([employer]) 07/05/2023,11/01/2021 Covid-19, Mrna, Lnp-s, Pf, B ivalent, [...] encounter Miscellaneous Notes * Telephone Encounter - Stephanie Marr RPh - 09/02/2023 9:13 AM EDT Daughter calling regarding patient. Has cold for few days with cough. COVID negative. Stated pt has some confusion. Concerned for UTI, no fever but some incontinence which is not unusual for patient. Scheduled for acute appt in [facility]. Thanks, Stephanie Marr, PharmD Clinical Pharmacist [facility] ([facility]) (formerly Telepharmacy) [phone] 09/02/2023 9:21 AM * Telephone Encounter - Lizbeth Bar CPhT - 09/02/2023 9:11 AM EDT Daughter calling to question if pt needs to be seen. States pt has cold symptoms with contusion. Transferred to [facility]. Lizbeth Salcedo CPhT, Tech II [facility] ([facility]) (formerly Telepharmacy) [address] [place] [address] documented in this encounter Plan of Treatment Upcoming Encounters Date Type Department Care Team (Late st Contact Info) Description 09/02/2023 11:00 AM EDT Office Visit [facility] [address] [facility] [place] [phone] Ankur Fulton CRNP [address] [place] [id number] 09/06/2023 10:30 AM EDT [facility] [address] [facility] [place] [address] 09/12/2023 2:40 PM EDT Office Visit Pharmacy, [facility] [address] [facility] [place] [address] [facility] [address] [facility] [place] [address] 09/21/2023 2:00 PM EDT Office Visit Nephrology, [facility] D[facility] [address] [place] [address] Juan Tovar MD [address] [place] [address] 09/21/2023 3:30 PM EDT Telemedicine Psychiatry, [facility] [address] [facility] [place] [address] Filemon Medina CRNP [address] [facility] [place] [address] 09/22/2023 3:45 PM EDT Telemedicine Orthopaedics [facility] [address] [place] [address] Zia Monsalve MD [address] [place] [address] 09/26/2023 1:30 PM EDT Office Visit Orthopaedics [facility] [address] [place] [address] Zia Monsalve MD [address] [place] [address] 10/10/2023 1:30 PM EDT Office Visit Interventional Pain Center, [facility] [address] [place] [address] Edgar Forde, DO [address] [place] [address] 12/28/2023 3:20 PM EDT Office Visit Family Practice [facility] [address] [place] [address] Ghada Salazar MD [address] [place] [address] 02/13/2024 10:40 AM EDT Office Visit Sleep Disorders Ctr [facility] [address] [place] [phone] Sofia Romo, DO [address] [place] [address] Health Maintenance Due Date Last Done Comments [...] 03/29/2023, 1205/2021, 08/28/2013 Lipid Panel 06/14/2028 06/14/2023, 020 06/2022, 01/25/2021 DTaP,Tdap,and Td Vaccines (3 - [...] this encounter Medical Devices Implanted Type Area Photo Equipment Technician Device Identifier Shelf Expiration Date Model / Serial / Lot Mometasone Furoate Implant Min - [id number] Implanted:Qty: 1 on 07/18/2023 by Pat Umaña MD at [facility] Right: Nose [employer] HaierCILoudr MACK 05/03/2024 [id number] / / [id number] documented as of this encounter Care Teams Picc Nurse Relationship Specialty Start Date End Date Ghada Salazar MD [address] [place] [address] PCP - General Internal Medicine 04/04/22 documented as of this encounter
--- OUTSIDE RECORDS SUMMARY | 2023-09-09 23:41 | External Medical Summary | Summary of Care ---
Author Name Unknown Organization [facility] Address [address] [place] [address] Phone [phone] Care Team Providers Care Patcher Helper Name Role Phone Ghada Salazar MD Primary Care Provider Reason for Referral * Evaluate & Treat - Unlimited Visits (Within 10 days (routine)) - Authorized Specialty Diagnoses / Procedures Referred By Contac t Referred To Contact Pain Management / Pain Medicine Diagnoses Radicular leg pain Osteoarthritis of spine with radiculopathy, lumbar region Zia Monsalve MD [address] [place] [address] Referral ID Status Reason Start Date Expiration Date Visits Requested Visits Authorized [id number] Authorized Specialty Services Required 08/11/2023 999 999 Question Answer Referral Priority Within 10 days (routine) [facility] Reason for referral? Interventional Pain Management - [...] pain if not done previously. Fax No. [facility] [phone] or contact javascript front end developer [phone] Fax No. [facility] [phone] or contact javascript front end developer [phone] Fax No. [facility] [phone] or contact javascript front end developer [phone] * Precert (Within 10 days (routine)) - Authorized Specialty Diagnoses / Procedures Referred By Contac t Referred To Contact Radiology Diagnoses Radicular leg pain Osteoarthritis of spine with radiculopathy, lumbar region Procedures MRI L SPINE WO CONTRAST Zia Monsalve MD [address] [place] [address] Referral ID Status Reason Start Date Expiration Date V isits Requested Visits Authorized [id number] Authorized 08/11/2023 999 999 Reason for Visit * Reason Comments NEW PATIENT Pain L Hip * Evaluate & Treat - Unlimited Visits (Within 10 days (routine)) - Authorized Specialty Diagnoses / Procedures Referred By Contac t Referred To Contact Orthopaedic Surgery / Orthopedics Diagnoses Hip pain, left Ghada Salazar MD [address] [place] [address] Referral ID Status Reason Start Date Expiration Date Visits Requested Visits Authorized [id number] Authorized Specialty Services Required 07/31/[phone] Encounter Details Date Type Department Care Team (Latest Contact Info) Description 08/11/2023 11:00 AM EDT Office Visit Orthopaedics [facility] [address] [place] [address] Zia Monsalve MD [address] [place] [address] Hip pain, left*; Radicular leg pain; Osteoarthritis of spine with radiculopathy, lumbar region; Primary osteoarthritis of left hip Allergies No known active allergiesdocumented as of this encounter (statuses as of 08/11/2023) Medications Medication Sig Dispensed Refills Start Date [...] 05/29/2023 Active Additional Information Patient taking differently:2 [place] Each Nostril Daily(AM),Indications: as needed, Reported on 06/02/2023 Assure ID Duo Pro Pen [place] 31G X 5 MM (Insulin Pen Needle) [...] as of this encounter (statuses as of 08/11/2023) Active Problems Problem Noted Date Diagnosed Date [...] as of this encounter (statuses as of 08/11/2023) Resolved Problems Problem Noted Date Diagnosed Date Resolved Date Stage 3b chronic kidney disease (CKD) 02/09/2022 05/20/2022 Diabetic retinopathy associa nasra with type 2 diabetes mellitus 02/09/2022 05/20/2022 documented as of this encounter (statuses as of 08/11/2023) Immunizations Name Administration Dates Next Due COVID-19 mRNA, LNP-s, No Pre serve, 2-Dose Series ([facility]) 02/01/2021,07/09/2020,06/16/2020 COVID-19, LNP-s, No Preserve , Perfecto-sucrose, Ages 12+ (Pfizer) 07/05/2023,11/01/2021 Covid-19, Mrna, Lnp-s, Pf, B ivalent, 30 Mcg, IM, 12 yrs and above ([facility]) 10/06/2022,01/06/2022 HEP A - Hepatitis A (Adult [...] - 08/11/2023 11:06 AM EDT Tasha Sauer [phone] Tasha Sauer is a 72 year old female who presents for consultation for left hip injury/pain to [facility]. Consult requested by [...] retinopathy associated with type 2 diabetes mellitus ([facility]) 02/09/2022 Dizziness Dyslipidemia, goal LDL below 100 02/09/2022 Fatigue HTN (hypertension) Motion sickness Obesity PONV (postoperative nausea and vomiting) Severe episode of recurrent major depressive disorder ([facility]) 02/09/2022 Sleep apnea CPAP - intermittent use Stage 3b chronic kidney disease (CKD) ([facility]) 02/09/2022 Type 2 diabetes mellitus with hemoglobin A1c goal of less than 7.0% ([facility]) 02/09/2022 Vitamin D deficiency 02/09/2022 Family History [...] today 08/11/2023. Telephone follow-up in 3-4 weeks 2) concern for lumbar stenosis/radiculopathy Significant changes [...] Monsalve MD Primary Care Sports Medicine Orthopaedics [facility] [address] [facility] [place] [address] documented in this encounter Nursing Notes * [...] 08/18/2023 10:45 AM EDT Office Visit Otolaryngology [facility] [address] [place] [address] Pat Umaña MD [address] [place] [address] 08/29/2023 12:30 PM EDT Office Visit Orthopaedics [facility] [address] [place] [address] Zia Monsalve MD [address] [place] [address] 08/29/2023 2:00 PM EDT Office Visit Pharmacy, [facility] [address] [place] [address] [facility] [address] [facility] [place] [address] 09/06/2023 10:30 AM EDT Imaging Radiology [facility] [address] [place] [address] 09/21/2023 2:00 PM EDT Office Visit Nephrology, [facility] [address] [facility] [place] [address] Juan Tovar MD [address] [facility] [place] [address] 09/21/2023 3:30 PM EDT Telemedicine Psychiatry, [facility] [address] [place] [address] Filemon Medina CRNP [address] [place] [address] 09/22/2023 3:45 PM EDT Telemedicine Orthopaedics [facility] [address] [facility] [place] [address] Zia Monsalve MD [address] [place] [address] 10/10/2023 1:30 PM EDT Office Visit Interventional Pain Center, [facility] [address] [place] [address] Edgar Forde, DO [address] [place] [address] 10/31/2023 2:20 PM EDT Office Visit Sleep Disorders [facility]tr [facility] [address] [place] [phone] Sofia Romo, DO [address] [place] [address] 12/28/2023 3:20 PM EDT Office Visit Family Practice [facility] [address] [place] [address] Ghada Salazar MD [address] [place] [address] Pending Results Name Type Priority Associated Diagnoses Date /Time XR HIP UNILAT 2-3 VIEWS INCLUDING AP PELVIS Medical Imaging Routine Hip pain, left 08/11/2023 11:19 AM EDT XR L SPINE COMPLETE Medical Imaging Routine Hip pain, left Radicular leg pain 08/11/2023 11:19 AM EDT Scheduled Orders Name Type Priority Associated Diagnoses [...] 03/29/2023, 1205/2021, 08/28/2013 Lipid Panel 06/14/2028 06/14/2023, 0206/2022, 01/25/2021 DTaP,Tdap,and Td Vaccines (3 - Td [...] this encounter Medical Devices Implanted Type Area Veterans' Counselor Device Identifier Shelf Expiration Date Model / Serial / Lot Mometasone Furoate Implant Min - [id number] Implanted:Qty: 1 on 07/18/2023 by Pat Umaña MD at [facility] Right: Nose IT MOVES IT 05/03/2024 [id number] / / [id number] documented as of this encounter Visit Diagnoses Diagnosis Hip pain, [...] 2 mL 2 mL, Injection, ONCE, On Mon08/11/23 at 1315, For 1 dose, Lidocaine 1% 1mL Triamcinolone Acetonide 40 mg/mL 1 mL (Final concentration = 20 mg/mL) REFRIGERATE and SHAKE WELL Given 08/11/2023 2:05 PM EDT 2 mL Hip Left documented in this encounter Care Teams Patcher Helper Relationship Specialty Start Date End Date Ghada Salazar MD [address] [facility] [place] [address] PCP - General Internal Medicine 04/04/22 documented as of this encounter
--- OUTSIDE RECORDS SUMMARY | 2023-09-09 23:41 | External Medical Summary | Summary of Care ---
Author Name Unknown Organization [facility] Address [address] [place] [address] Phone [phone] Care Team Providers Care Forestry Worker Name Role Phone Ghada Salazar MD Primary Care Provider Encounter Details Date Type Department Care Team (Latest Contact Info) Description 09/02/2023 11:57 AM EDT - 09/02/2023 11:59 PM EDT Hospital Encounter Radiology, [address] [phone] Arrived Discharge Disposition: Home - Self Care Allergies No known active allergiesdocumented as of this encounter (statuses as of 09/03/2023) Medications Medication Sig Dispensed Refills Start Date End Date Status Aspirin EC 81 MG Oral Tablet Delayed ReleaseIndications: Type 2 diabetes mellitus with hemoglobin A1c goal of less than 7.0% ([facility]) Take 1 Tablet by mouth [...] hemoglobin A1c goal of less than 7.0% ([facility]) Inject 16 Units under the [...] 05/29/2023 Active Additional Information Patient taking differently:2 [place] Each Nostril Daily(AM),Indications: as needed, Reported on 06/02/2023 Assure ID Duo Pro Pen Chana 31G X 5 MM (Insulin Pen Needle) [...] as of this encounter (statuses as of 09/03/2023) Active Problems Problem Noted Date Diagnosed Date [...] as of this encounter (statuses as of 09/03/2023) Resolved Problems Problem Noted Date Diagnosed Date Resolved Date Stage 3b chronic kidney disease (CKD) 02/09/2022 05/20/2022 Diabetic retinopathy associa nasra with type 2 diabetes mellitus 02/09/2022 05/20/2022 documented as of this encounter (statuses as of 09/03/2023) Immunizations Name Administration Dates Next Due COVID-19 mRNA, LNP-s, No Pre serve, 2-Dose Series ([employer]) 02/01/2021,07/09/2020,06/16/2020 COVID-19, LNP-s, No Preserve , Perfecto-sucrose, Ages 12+ ([employer]) 07/05/2023,11/01/2021 Covid-19, Mrna, Lnp-s, Pf, B ivalent, 30 Mcg, IM, 12 yrs and above ([employer]) 10/06/2022,01/06/2022 HEP A - Hepatitis A (Adult [...] Team (Late st Contact Info) Description 09/06/2023 10:30 AM EDT Imaging Radiology [facility] [address] [place] [address] 09/12/2023 2:40 PM EDT Office Visit Pharmacy, [address] [place] [address] [address] [facility] [address] [place] [address] 09/21/2023 2:00 PM EDT Office Visit Nephrology, Alber Dang [address] [place] [address] Juan Tovar MD [address] [place] [address] 09/21/2023 3:30 PM EDT Telemedicine Psychiatry, [facility] [address] [facility] [place] [address] Filemon Medina CRNP [address] [place] [address] 09/22/2023 3:45 PM EDT Telemedicine Orthopaedics [facility] [address] [place] [address] Zia Monsalve MD [address] [place] [address] 09/26/2023 1:30 PM EDT Office Visit Orthopaedics [facility] [address] [place] [address] Zia Monsalve MD [address] [place] [address] 10/10/2023 1:30 PM EDT Office Visit Interventional Pain Center, [facility] [address] [place] [address] Edgar Forde, DO [address] [place] [id number] 12/28/2023 3:20 PM EDT Office Visit Family Practice [facility] [address] [place] [address] Ghada Salazar MD [address] [place] [address] 02/13/2024 10:40 AM EDT Office Visit Sleep Disorders Ctr [facility] [address] [place] [phone] Sofia Romo, DO [address] [place] [address] Health Maintenance Due Date Last Done Comments Kostasrd 1994 Colonoscopy 1994 Colorectal Cancer Screening 1994 [...] this encounter Medical Devices Implanted Type Area Lang Interpreter Device Identifier Shelf Expiration Date Model / Serial / Lot Mometasone Furoate Implant Min - [id number] Implanted:Qty: 1 on 07/18/2023 by Pat Umaña MD at OR [facility] Right: Nose [employer] [place] 05/03/2024 [id number] / / [id number] documented as of this encounter Procedures Procedure Name Priority Date/Time Associated Diagnosis Comments XR CHEST 2 VIEWS Routine 09/02/2023 12:0 7 PM EDT Acute cough SOB (shortness of breath) documented in this encounter Results * XR CHEST 2 VIEWS (09/02/2023 12:07 PM EDT) Anatomical Region Laterality Modality Chest Digital Radiogra phy 09/02/2023 3:17 PM EDT Impressions 09/02/2023 3:14 PM EDT IMPRESSION Question mild airspace opacities at the left base, which may reflect pneumonia. Narrative 09/02/2023 3:14 PM EDT EXAM XR CHEST 2 VIEWS - 09/02/2023 12:07 pm HISTORY "SOB/Wheezing" TECHNIQUE Frontal and lateral views of the chest were obtained. COMPARISON None. FINDINGS Question mild airspace opacities at the left base, which may reflect pneumonia. No pleural effusion or pneumothorax. Normal cardiomediastinal silhouette. Procedure Note Tony Villalta MD - 09/02/2023 EXAM XR CHEST 2 VIEWS - 09/02/2023 12:07 pm HISTORY "SOB/Wheezing" TECHNIQUE Frontal and lateral views of the chest were obtained. COMPARISON None. FINDINGS Question mild airspace opacities at the left base, which may reflectpneumonia. No pleural effusion or pneumothorax. Normal cardiomediastinalsilhouette. IMPRESSION IMPRESSION Question mild airspace opacities at the left base, which may reflectpneumonia. Ankur [facility] RADIOLOGY (RAD GENER AL) documented in this encounter Care Teams Forestry Worker Relationship Specialty Start Date End Date Ghada Salazar MD [address] [place] [address] PCP - General Internal Medicine 04/04/22 documented as of this encounter
--- OUTSIDE RECORDS SUMMARY | 2023-09-09 23:41 | External Medical Summary | Summary of Care ---
Author Name Unknown Organization [facility] Address [address] [place] [address] Phone [phone] Care Team Providers Care Burn Table Operator Name Role Phone Ghada Salazar MD Primary Care Provider Reason for Referral * Evaluate & Treat - Unlimited Visits (Within 10 days (routine)) - Authorized Specialty Diagnoses / Procedures Referred By Contac t Referred To Contact Orthopaedic Surgery / Orthopedics Diagnoses Hip pain, left Ghada Salazar MD [phone] [place] [address] Referral ID Status Reason Start Date Expiration Date Visits Requested Visits Authorized [id number] Authorized Specialty Services Required 07/31/[phone] Question Answer Referral Priority Within 10 days (routine) Where should this appointment be scheduled? [facility] What body part is the patient being seen for? Hip What condition is the patient being seen for? Sprain/Strain/Tear/Other Comments L lateral hip pain for several weeks, interfering with ADLs. Initially seen on video, sounds like could be IT band, trochanteric bursitis, or referred lumbar pain. Reason for Visit * Reason Comments Acute L hip pain Encounter Details Date Type Department Care Team (Late st Contact Info) Description 07/31/2023 4:40 PM EDT Telemedicine Family Practice [facility] [address] [place] [address] Ghada Salazar MD [address] [place] [address] Hip pain, left* Allergies No known active allergiesdocumented as of this encounter (statuses as of 07/31/2023) Medications Medication Sig Dispensed Refills Start Date [...] 05/29/2023 Active Additional Information Patient taking differently:2 [place] Each Nostril Daily(AM),Indications: as needed, Reported on 06/02/2023 Assure ID Duo Pro Pen [place] 31G X 5 MM (Insulin Pen Needle) [...] as of this encounter (statuses as of 07/31/2023) Active Problems Problem Noted Date Diagnosed Date [...] as of this encounter (statuses as of 07/31/2023) Resolved Problems Problem Noted Date Diagnosed Date Resolved Date Stage 3b chronic kidney disease (CKD) 02/09/2022 05/20/2022 Diabetic retinopathy associa nsara with type 2 diabetes mellitus 02/09/2022 05/20/2022 documented as of this encounter (statuses as of 07/31/2023) Immunizations Name Administration Dates Next Due COVID-19 mRNA, LNP-s, No Pre serve, 2-Dose Series ([employer]) 02/01/2021,07/09/2020,06/16/2020 COVID-19, LNP-s, No Preserve , Perfecto-sucrose, Ages 12+ ([employer]) 07/05/2023,11/01/2021 Covid-19, Mrna, Lnp-s, Pf, B ivalent, 30 Mcg, IM, 12 yrs and above ([employer]) 10/06/2022,01/06/2022 HEP A - Hepatitis A [...] as of this encounter Progress Notes * Ghada Salazar MD - 07/31/2023 4:56 PM EDT Images from the original note were not included. History of Present Illness Tasha Sauer is a 72 year old female that presents for Acute (L hip pain) Increased fluoxetine to 40mg, hasn't started yet.Daughter Josselyn present for visit. Several weeks of pain in hip/groin, stretches down to knee. Hurts the most when standing/walking. When sitting/laying pain subsides after a bit. On left leg. Has had this trouble before, but usually resolves after a couple days. Tylenol hasn't helped. Hasn't had X-rays of hip. Lumbar spine injections years ago. Hip and knee hurt equally. No recent falls. Current medications and allergies reviewed. Past medical history and problem list reviewed. Physical Exam There were no vitals filed for this visit. Physical Exam Constitutional: Appearance: Normal appearance. She is not ill-appearing. Musculoskeletal: Comments: Seated. Indicates pain is mostly lateral hip, somewhat posterior. Neurological: Mental Status: She is alert. I have reviewed the following results: Hemoglobin A1C and BMP Assessment and Plan Hip pain, left Given limitations of video visit, and potential for bursitis, will bring her in in-person to see orthopedics. - ORTHOPAEDICS REFERRAL OP Wrap-Up Time: I spent a total of 10-19 minutes (exact time 12 mins) on the date of service in preparation, delivery, and documentation of the care provided to Tasha Sauer excluding any time spent in the performance of separately billed services. Patient location: HOME. I was in a hospital or clinic location. After connecting through televideo,patient was verified with two unique identifiers. Patient (or authorized legal field representatives director) was then informed that this was a Telemedicine visit and being conducted confidentially over secure lines. Methods to assure confidentiality were taken. Patient acknowledged consent and understanding of pr ivacy and security of the Telemedicine visit. The patient agreed to participate. documented in this encounter Plan of Treatment Upcoming Encounters Date Type Department Care Team (Late st Contact Info) Description 08/04/2023 10:00 AM EDT Office Visit Otolaryngology [facility] [address] [place] [address] Pat Umaña MD [address] [place] [address] 08/18/2023 10:45 AM EDT Office Visit Otolaryngology [facility] [address] [place] [address] Pat Umaña MD [address] [place] [address] 08/29/2023 2:00 PM EDT Office Visit Pharmacy, [facility] [address] [place] [address] [facility] [address] [facility] [place] [address] 09/21/2023 2:00 PM EDT Office Visit Nephrology, Alber Dang [address] [place] [address] Juan Tovar MD [address] [place] [address] 09/21/2023 3:30 PM EDT Telemedicine Psychiatry, [facility] [address] [place] [address] Filemon Medina CRNP [address] [place] [address] 10/31/2023 2:20 PM EDT Office Visit Sleep Disorders Ctr [facility] [address] [place] [address] Sofia Romo, DO [address] [place] [address] 12/28/2023 3:20 PM EDT Office Visit Family [facility] [address] [place] [address] Ghada Salazar MD [address] [place] [address] Scheduled Referrals Name Type Priority Associated Diagnoses Order Schedule ORTHOPAEDICS REFERRAL OP Referral Within 10 days (routine) Hip pain, left Ordered: 07/31/2023 Health Maintenance Due Date Last Done Comments [...] Ended) 2023 12/17/2021, 01/25/2021 Phosphate 12/30/2023 12/29/2022, 060 11/2022, 02/18/2022 Nephrology [...] this encounter Medical Devices Implanted Type Area Asphalt Roller Operator Device Identifier Shelf Expiration Date Model / Serial / Lot Mometasone Furoate Implant Min - [id number] Implanted:Qty: 1 on 07/18/2023 by Pat Umaña MD at [facility] Right: Nose [employer] 05/03/2024 [id number] / / [id number] documented as of this encounter Visit Diagnoses Diagnosis Hip pain, left- Primary Pain in joint, pelvic region and thigh documented in this encounter Care Teams Burn Table Operator Relationship Specialty Start Date End Date Ghada Salazar MD [address] [place] [address] PCP - General Internal Medicine 04/04/22 documented as of this encounter
--- OUTSIDE RECORDS SUMMARY | 2023-09-09 23:41 | External Medical Summary | Summary of Care ---
Author Name Unknown Organization [facility] Address [address] [place] [address] Phone [phone] Care Team Providers Care Accounting Auditor Name Role Phone Ghada Salazar MD Primary Care Provider Reason for Visit * Reason Onset Date Comments Test Results 09/02/2023 Encounter Details Date Type Department Care Team (Late st Contact Info) Description 09/02/2023 Telephone [facility] [address] [place] [address] Ankur Fulton CRNP [address] [place] [address] Test Results Allergies No known active allergiesdocumented as of this encounter (statuses as of 09/02/2023) Medications Medication Sig Dispensed Refills Start Date End Date Status Aspirin EC 81 MG Oral Tablet Delayed ReleaseIndications: Type 2 diabetes mellitus with hemoglobin A1c goal of less than 7.0% ([facility]) Take 1 Tablet by mouth in [...] hemoglobin A1c goal of less than 7.0% ([facility]) Inject 16 Units under the skin [...] 05/29/2023 Active Additional Information Patient taking differently:2 [place] Each Nostril Daily(AM),Indications: as needed, Reported on 06/02/2023 Assure ID Duo Pro Pen [place] 31G X 5 MM (Insulin Pen Needle) [...] all this for 10 days. 20 Tablet 0 09/02/2023 09/12/2023 Active documented as of this [...] mRNA, LNP-s, No Pre serve, 2-Dose Series ([employer]) 02/01/2021,07/09/2020,06/16/2020 COVID-19, LNP-s, No Preserve , Perfecto-sucrose, Ages 12+ ([employer]) 07/05/2023,11/01/2021 Covid-19, Mrna, Lnp-s, Pf, B ivalent, 30 Mcg, IM, 12 yrs and above ([employer]) 10/06/2022,01/06/2022 HEP A - Hepatitis A (Adult [...] encounter Miscellaneous Notes * Telephone Encounter - Ankur Fulton CRNP - 09/02/2023 3:41 PM EDT Called daughter of pt and notified of treatment with augmentin twice a day for 10 days. X-ray showspossible right lower lobe pneumonia. documented in this encounter Plan of Treatment Upcoming Encounters Date Type Department Care Team (Late st Contact Info) Description 09/06/2023 10:30 AM EDT Imaging Radiology [facility] 1st [facility], [address] [place] [address] 09/12/2023 2:40 PM EDT Office Visit Pharmacy, [address] [place] [address] [address] [address] [place] [address] 09/21/2023 2:00 PM EDT Office Visit Nephrology, Alber Dang [address] [place], [place] [address] Juan Tovar MD [address] [place] [address] 09/21/2023 3:30 PM EDT Telemedicine Psychiatry, [facility] [address] [place] [address] Filemon Medina CRNP [address] [place] [address] 09/22/2023 3:45 PM EDT Telemedicine Orthopaedics [facility] [address] [place] [address] Zia Monsalve MD [address] [place] [address] 09/26/2023 1:30 PM EDT Office Visit Orthopaedics [facility] [address] [place] [address] Zia Monsalve MD [address] [place] [address] 10/10/2023 1:30 PM EDT Office Visit Interventional Pain Center, [facility] [address] [place] [address] Edgar Forde DO [address] [place] [address] 12/28/2023 3:20 PM EDT Office Visit Family Practice [facility] [address] [place] [address] Ghada Salazar MD [address] [place] [address] 02/13/2024 10:40 AM EDT Office Visit Sleep Disorders Ctr [facility] [address] [place] [address] Sofia Romo, DO [address] [place] [address] Health Maintenance Due Date Last Done Comments [...] 03/29/2023, 1205/2021, 08/28/2013 Lipid Panel 06/14/2028 06/14/2023, 0 06/2022, 01/25/2021 DTaP,Tdap,and Td Vaccines (3 - [...] this encounter Medical Devices Implanted Type Area Donor Relations Manager Device Identifier Shelf Expiration Date Model / Serial / Lot Mometasone Furoate Implant Min - [id number] Implanted:Qty: 1 on 07/18/2023 by aPt Umaña MD at OR [facility] Right: Nose P[employer] 05/03/2024 [id number] / / [id number] documented as of this encounter Visit Diagnoses Diagnosis Community acquired pneumonia of right lower lobe of lung- Primary documented in this encounter Care Teams Accounting Auditor Relationship Specialty Start Date End Date Ghada Salazar MD [address] [place] [address] PCP - General Internal Medicine 04/04/22 documented as of this encounter
--- OUTSIDE RECORDS SUMMARY | 2023-09-09 23:41 | External Medical Summary | Summary of Care ---
Author Name Unknown Organization [facility] Address [address] [facility] [address] Phone [phone] Care Team Providers Care Rental Management Trainee Name Role Phone Ghada Salazar MD Primary Care Provider Encounter Details Date Type Department Care Team (Late st Contact Info) Description 05/26/2023 Telephone Family Practice [facility] [address] [place] [address] Ghada Salazar MD [address] [place] [address] Allergies No known active allergiesdocumented as of this encounter (statuses as of 08/25/2023) Medications Medication Sig Dispensed Refills Start Date End Date Status Aspirin EC 81 MG Oral Tablet Delayed ReleaseIndications:T ype 2 diabetes mellitus with hemoglobin A1c goal of less than 7.0% ([facility]) Take 1 Tablet by mouth in the morning. 0 Active B-12 500 MCG Oral TabletIndications:B1 2 deficiency Take by mouth . 0 Active D3 5000 125 MCG (5000 UT) Oral Capsule (Cholecalciferol)Ind ications:Vitamin D deficiency Take 1 Capsule by mouth in the morning. 0 Active Acetaminophen 325 MG Oral Tablet Take 1 Tablet by mouth every 6 hours as needed for Pain, Moderate. 0 Active Toujeo Max SoloStar 300 UNIT/ML Subcutaneous Solution Pen-injector (Insulin Glargine (2 Unit Dial))Indications:Ty pe 2 diabetes mellitus with hemoglobin A1c goal of less than 7.0% ([facility]) Inject 16 Units under the skin every morning. 15 mL 3 04/28/2022 Active Additional Information Patient taking differently:16 Units SubcutaneousDaily(Non-Specified), Indications: in afternoon, Reported on 06/02/2023 Fish Oil 1000 MG Oral Capsule Delayed Release Take 1 Capsule by mouth in the morning. 0 Active Cetirizine HCl 10 MG Oral Tablet Chewable (ZyrTEC)Indications: as needed Take 1 Tablet by mouth in the morning. 0 Active oxyBUTYnin Chloride 5 MG Oral Tablet (Ditropan)Indication s:Overactive bladder TAKE 1 TABLET BY MOUTH EVERY DAY IN THE MORNING 90 Tablet 3 05/05/2023 Active Rosuvastatin Calcium 10 MG Oral Tablet (Crestor)Indications :Dyslipidemia, goal LDL below 100 Take 1 Tablet by mouth every evening. 90 Tablet 1 05/10/2023 Active Chlorhexidine Gluconate 0.12 % Mouth/Throat Solution (Periogard) RINSE AND SPIT OUT WITH 1 CAPFUL TWICE A DAY FOR 30 SECONDS 0 05/09/2023 Active documented as of this encounter (statuses [...] mRNA, LNP-s, No Pre serve, 2-Dose Series ([employer]) 02/01/2021,07/09/2020,06/16/2020 COVID-19, LNP-s, No Preserve , Perfecto-sucrose, Ages 12+ ([employer]) 11/01/2021 Covid-19, Mrna, Lnp-s, Pf, B ivalent, 30 Mcg, IM, 12 yrs and above ([employer]) 10/06/2022,01/06/2022 HEP A - Hepatitis A (Adult [...] 08/29/2023 12:30 PM EDT Office Visit Orthopaedics [facility] [address] [place] [address] Zia Monsalve MD [address] [place] [address] 08/29/2023 2:00 PM EDT Office Visit Pharmacy, [facility] [address] [place] [address] [address] [facility] [address] [place] [address] 09/06/2023 10:30 AM EDT Imaging [facility] [address] [place] [address] 09/21/2023 2:00 PM EDT Office Visit Nephrology, [facility] [address] [facility] [place] [address] Juan Tovar MD [address] [place] [address] 09/21/2023 3:30 PM EDT Telemedicine Psychiatry, [facility] [address] [place] [address] Filemon Medina CRNP [address] [place] [address] 09/22/2023 3:45 PM EDT Telemedicine Orthopaedics [facility] [address] [place] [address] Zia Monsalve MD [address] [place] [address] 10/10/2023 1:30 PM EDT Office Visit Interventional Pain Center, [facility] [address] [place] [address] Edgar Forde DO [address] [place] [phone] 12/28/2023 3:20 PM EDT Office Visit Family Practice [facility] [place] [address] Ghada Salazar MD [address] [place] [address] 02/13/2024 10:40 AM EDT Office Visit [facility] [place] [phone] Sofia Romo, [address] [place] [address] Health Maintenance Due Date Last Done Comments [...] this encounter Medical Devices Implanted Type Area Database Designer Device Identifier Shelf Expiration Date Model / Serial / Lot Mometasone Furoate Implant Min - [id number] Implanted:Qty: 1 on 07/18/2023 by Pat Umaña MD at OR [facility] Right: Nose [employer] 05/03/2024 [id number] / / [id number] documented as of this encounter Care Teams Rental Management Trainee Relationship Specialty Start Date End Date Ghada Salazar MD [address] [place] [address] PCP - General Internal Medicine 04/04/22 documented as of this encounter
--- OUTSIDE RECORDS SUMMARY | 2023-09-09 23:41 | External Medical Summary | Summary of Care ---
Author Name Unknown Organization [facility] Address [address] [place] [address] Phone [phone] Care Team Providers Care Crystal Slicer Name Role Phone Ghada Salazar MD Primary Care Provider Reason for Visit * Reason Comments Acute Pt arrived with daug hter for c/o cold sx, cough, wheezing, ears clicking and daughter states that she has been confused some. Has been ongoing since Monday last week.Has been Taking Mucinex DM. COVID negative at home. Encounter Details Date Type Department Care Team (Late st Contact Info) Description 09/02/2023 11:00 AM EDT Office Visit [address] [place] [address] Ankur Fulton CRNP [address] [place] [address] Acute cough*; SOB (shortness of breath); Generalized weakness; Risk and functional assessment Allergies No known active allergiesdocumented as of [...] of less than 7.0% ([facility]) Inject 16 Units under the skin every [...] Active Fluticasone Propionate 50 MCG/ACT Nasal Suspension (Flonase)Indicatio ns:Post-nasal drip Administer 2 Sprays into each nostril in the morning. 9.9 mL 3 05/29/2023 Active Additional Information Patient taking differently:2 [place] Each Nostril Daily(AM),Indications: as needed, Reported on 06/02/2023 Assure ID Duo Pro Pen [place] 31G X 5 MM (Insulin Pen Needle) Use pen needles for insulin injection three times daily E11.9 300 Each 3 06/16/2023 Active amLODIPine Besylate 5 MG Oral Tablet (Norvasc)Indicatio ns:HTN, goal below 130/80 Take 1 Tablet by mouth in the morning. 30 Tablet 11 06/29/2023 Active Gabapentin 600 MG Oral Tablet (Neurontin) Take 1 Tablet by mouth in the morning and 1 Tablet before bedtime. 60 Tablet 5 06/29/2023 Active Telmisartan 80 MG Oral Tablet (Micardis)Indicati ons:HTN, [...] the morning. 30 Capsule 2 07/27/2023 Active predniSONE 10 MG Oral Tablet (Deltasone) Take 6 tab daily x 3 days, then 4 tab daily x 3 days, 3 tab daily x 3 days, 2 tab daily x 3 days, then 1 tab daily x 3 days.Start 4 days prior to your sinus surgery. 48 Tablet 0 06/30/2023 Discontinue d(Medicatio n List Clean Up) Chlorhexidine Gluconate 0.12 % Mouth/Throat Solution (Periogard) RINSE AND SPIT OUT WITH 1 CAPFUL TWICE A DAY FOR 30 SECONDS 0 05/09/2023 4 Discontinue d(Medicatio n List Clean Up) documented as of this encounter (statuses as [...] mRNA, LNP-s, No Pre serve, 2-Dose Series ([employer]) 02/01/2021,07/09/2020,06/16/2020 COVID-19, LNP-s, No Preserve , Perfecto-sucrose, Ages 12+ ([employer]) 07/05/2023,11/01/2021 Covid-19, Mrna, Lnp-s, Pf, B ivalent, 30 Mcg, IM, 12 yrs and above ([employer]) 10/06/2022,01/06/2022 HEP A - Hepatitis A (Adult [...] Sign Reading Time Taken Comments Blood Pressure 104/58 09/02/2023 11:13 AM EDT Pulse 72 09/02/2023 11:13 AM EDT Temperature 36.6 C (97.9 F) 09/02/2023 11:13 AM E DT Respiratory Rate 16 09/02/2023 11:13 AM EDT Oxygen Saturation 94% 09/02/2023 11:13 AM EDT Inhaled Oxygen Concentration - - Weight 94.6 kg (208 lb 9.6 oz) 09/02/2023 11:13 AM EDT Height 152.4 cm (5') 09/02/2023 11:13 AM EDT Body Mass Index 40.74 09/02/2023 11:13 AM EDT documented in this encounter Patient Instructions * Patient Instructions* Nilsa Liang LPN - 09/02/2023 11:09 AM EDT Patient Instructions - Fall Prevention (This education is for all patients over 65 regardless of symptoms) Remember to take your current medications as prescribed. In order to prevent falls, you are encouraged to: Exercise Utilize assistive/adaptive devices Avoid multifocal lenses when walking Avoid hazards in home Maintain a regular toileting schedule Any questions please contact our office. Preventing Falls in the Home (This education is for all patients over 65 regardless of symptoms) As you get older, falls are more likely. Thats because your reaction time slows. Your muscles and joints may also get stiffer, making them less flexible. Illness, medications, and vision changes can also affect your balance. A fall could leave you unable to live on your own. To make your home safer, follow these tips: Floors Put nonskid pads under area rugs Remove throw rugs Replace worn floor coverings Tack carpets firmly to each step on carpeted stairs. Put nonskid strips on the edges of uncarpeted stairs Keep floors and stairs free of clutter and cords Arrange furniture so there are clear pathways Clean up any spills right away Bathrooms Install grab bars in the tub or shower Apply nonskid strips or put a nonskid rubber mat in the tub or shower Sit on a bath chair to bathe Use bathmats with nonskid backing Lighting Keep a flashlight in each room Put a nightlight along the pathway between the bedroom and the bathroom [employer] Patient Education Copyright 2008 - 2010 [employer] except where otherwise noted Preventing Falls: Exercises to Improve Balance, Flexibility, Strength, and Staying Power (This education is for all patients over 65 regardless of symptoms) Certain types of exercises may help make you less likely to fall. Try the ones below. Or do other exercises that your healthcare provider suggests. Depending on your health, you may need to start slowly. Dont let that stop you. Even small amounts of exercise can help you. Be sure to talk to yourhealthcare provider before starting any exercise program. Improve Balance Many types of exercise can help improve balance. Marquez chi and yoga are good examples. Heres another one to try. You can do it anytime and almost anywhere. Stand next to a counter or solid support. Push yourself up onto your tiptoes. Hold for 5 seconds. If you start to lose your balance, hold on to the counter. Rest and repeat 5 times. Work up to holding for 20 to 30 seconds, if you can. Increase Flexibility Being more flexible makes it easier for you to move around safely. Try exercises like the seated hamstring stretch. Sit in a chair and put one foot on a stool. Straighten your leg and reach with both hands down either side of your leg. Reach as far down your leg as you can. Hold for about 20 seconds. Go back to the starting position. Then repeat 5 times. Switch legs. Build Strength Resistance exercises help build strength. You can do them without equipment. Or you can use weights, elastic bands, or special machines. One such exercise is called the biceps curl. You can hold a 1 pound weight or even a can of soup. Do this exercise at least 3 times a week. Strive for everyday. Sit up straight in a chair. Keep your elbow close to your body and your wrist straight. Bend your arm, moving your hand up to your shoulder. Then slowly lower your arm. Repeat 5 times. Switch to the other arm. Build Your Staying Power Aerobic exercises make your heart and lungs stronger so you can keep moving longer. Walking and swimming are two of the best types of exercises you can do. Using a stationary bike is great, too. Find an aerobic exercise that you enjoy. Start slowly and build up. Even 5 minutes is helpful. Aimfor a goal of 30 minutes, at least 3 times a week. You dont have to do 30 minutes in one session. Break it up and walk a little throughout the day. More Helpful Tips Start easy. Slowly work up to doing more. Talk with your healthcare provider about the best exercises for you. Call senior centers or health clubs about exercise programs. If needed, have a family member watch you walk every so often to check your stability. Exercise with a friend. Choose an activity you both enjoy. Try exercises that you can do anytime, anywhere. Here are two examples. Have someone with you when you first try these: Practice walking by placing one foot right in front of the other. Stand up and sit down 10 times. Repeat this throughout the day. [employer] Patient Education Copyright 2008 [employer] except where otherwise noted. Preventing Falls: Moving Safely Using a Cane or Walker (This education is for all patients over 65 regardless of symptoms) Keep the cane away from your feet so you dont trip. A walking aid, such as a cane or walker, can help you stay more independent and avoid falls. Remember to keep your walking aid within easy reach when youre in a chair or in bed. And learn how to use it safely so you dont injure yourself. Using a Cane If you have a stronger side, hold the cane on that side. Get your balance. Move the cane and your weaker leg forward. Support your weight on both the cane and your weaker side. Step with your stronger leg. Start again from step 1. If youre using a folding walker, be sure you know how to lock it open. Check that its locked open before each use. Using a Walker Roll the walker (or lift it, if youre using one without wheels) forward about 12 inches. Step forward with your weaker leg first. Use the walker to help keep your balance. Bring your other foot forward to the center of the walker. Start again from step 1. Helpful Tips Check with your healthcare provider about the right walking aid to use. Ask about a walker with a seat attached. Check the tips of your cane or walker to make sure they have nonskid covers. Move slowly from room to room. Dont casarez. Sit down to get dressed. Use a austin pack or backpack to keep your hands free. Get help for jobs that mean climbing, even on a stepstool. [employer] Patient Education Copyright 2008 [employer] except where otherwise noted. Urinary Incontinence Plan of Care Documentation: (This education is for all patients over 65 regardless of symptoms) Current medications reconciled. Patient encouraged to: Practice kegal exercises Provide education materials Use the restroom every 2 hours throughout the day Limit caffeine, alcohol, spicy foods and acidic foods Keep a bladder diary Limit fluid intake 3-4 hours before bed Lose weight Prevent constipation Take fluid pills at a time when you can get to the bathroom quickly Control sugar better if diabetic Limit fluid intake to 60 oz. per day Wear support stockings (TEDs)if you have edema Nilsathony RiceGarthTENA 09/02/2023 Kegel Exercises Kegel exercises dont require special clothing or equipment. Theyre easy to learn and simple to do. And if you do them right, no one can tell youre doing them, so they can be done almost anywhere. Your doctor, nurse, or physical therapist can answer any questions you have and help you get started. A Weak Pelvic Floor The pelvic floor muscles may weaken due to aging, and vaginal childbirth, injury, surgery, chronic cough, or lack of exercise. If the pelvic floor is weak, your bladder and other pelvic organs may sag out of place. The urethra may also open too easily and allow urine to leak out. Kegel exercises can help you strengthen your pelvic floor muscles so they can better support the pelvic organs and control urine flow. How Kegel Exercises Are Done Try each of the Kegel exercises described below. When youre doing them, try not to move your leg, buttock, or stomach muscles. While youre urinating, try to stop the flow of urine. Start and stop it as often as you can. Contract as if you were stopping your urine stream, but do it when youre not urinating. Tighten your rectum as if trying not to pass gas. Contract your anus, but dont move your buttocks. Helpful Hints Do your Kegels as often as you can. The more you do them, the faster youll feel the results. Pick an activity you do often as a reminder. For instance, do your Kegels every time you sit down. Tighten your pelvic floor before you sneeze, get up from a chair, cough, laugh, or lift. This protects your pelvic floor from injury and can help prevent urine leakage. Try to hold each Kegel for a slow count to five. You probably wont be able to hold them for thatlong at first, but keep practicing. It will get easier as your pelvic floor gets stronger. Eventually, special weights that you place in your vagina may be recommended to help make your Kegels even more effective. [employer] Patient Education Copyright 2008 - 2010 [employer] except where otherwise noted. Here are some helpful tips for your urinary incontinence: (This education is for all patients over 65 regardless of symptoms) Practice Kegel exercises Use the restroom every 2 hours throughout the day Limit caffeine, alcohol, spicy foods, and acidic foods Keep a bladder diary Limit fluid intake 3-4 hours before bed Lose weight Prevent constipation Take fluid pills at a time when can get to the bathroom quickly Control sugar better if diabetic Limit fluid intake to 60 oz. per day Any questions, please feel free to contact our office. documented in this encounter Progress Notes * Ankur Fulton CRNP - 09/02/2023 11:18 AM EDT Images from the original note were not included. History of Present Illness Chief Complaint Patient presents with Acute Pt arrived with daughter for c/o cold sx, cough, wheezing, ears clicking and daughter states that she has been confused some. Has been ongoing since Monday last week.Has been Taking Mucinex DM. COVIDnegative at home. The patient is a 72-year-old female with a history of type 2 diabetes, dyslipidemia, CKD, depression, and elevated BMI who presents today for complaints of cough and weakness. Pt complains of cough for the past week. Pt states is productive cough. Cough is intermittent. Worse at night. Did try mucinex with mild relief of symptoms. Intermittent SOB. Wheezing at night. No fevers, chills, sore throat, CP. Has also been weaker over the last several weeks. Had a few falls over the past week. No injury. Nosyncopal episode. No bruising noted. Per daughter, pt has been slightly more confused over the past week. Daughter is concerned about UTI. No urinary symptoms. Patient denies being confused. Upon auscultation lung sounds are coarse throughout. Reviewed last labs Latest Reference Range & Units 06/14/23 09:52 07/18/23 10:50 07/18/23 13:02 Triglycerides <=174 mg/dL 176 (H) Cholesterol <200 mg/dL 172 Non-HDL Cholesterol <=159 mg/dL 119 HDL Cholesterol >49 mg/dL 53 LDL Cholesterol <=129 mg/dL 84 Sodium 135 - 146 mmol/L 141 Potassium 3.5 - 5.1 mmol/L 4.3 Chloride 98 - 107 mmol/L 103 CO2 22 - 32 mmol/L 25 BUN 6 - 20 mg/dL 27 (H) Creatinine 0.5 - 1.0 mg/dL 2.1 (H) Estimated Glomerular Filtration Rate >=60 mL/min 24 (L) Anion Gap 7 - 15 mmol/L 13 Glucose 70 - 120 mg/dL 152 (H) Calcium 8.4 - 10.2 mg/dL 9.7 Estimated Average Glucose <126 mg/dL 171 (H) Glucose Meter 70 - 120 mg/dL 166 (H) 173 (H) Hemoglobin A1C 4.0 - 5.6 % 7.6 (H) (H): Data is abnormally high (L): Data is abnormally low Review of Systems Constitutional: Negative. HENT: Negative. Eyes: Negative. Respiratory: Positive for cough, shortness of breath and wheezing. Cardiovascular: Negative. Negative for chest pain and palpitations. Gastrointestinal: Negative. Endocrine: Negative. Genitourinary: Negative. Negative for difficulty urinating, dysuria and hematuria. Musculoskeletal: Negative. Skin: Negative. Neurological: Positive for weakness. Negative for dizziness and light-headedness. Physical Exam BP 104/58 (BP Site: Left Arm, BP Position: Sitting, BP Cuff Size: Regular) | Pulse 72 | Temp 36.6 C (97.9 F) (Tympanic) | Resp 16 | Ht 1.524 m (5') | Wt 94.6 kg (208 lb 9.6 oz) | SpO2 94% | BMI 40.74 kg/m | BSA 2 m Physical Exam Vitals reviewed. Constitutional: Appearance: Normal appearance. HENT: Right Ear: Tympanic membrane, ear canal and external ear normal. Left Ear: Tympanic membrane, ear canal and external ear normal. Nose: Congestion present. No rhinorrhea. Mouth/Throat: Mouth: Mucous membranes are dry. Pharynx: Oropharynx is clear. Cardiovascular: Rate and Rhythm: Normal rate and regular rhythm. Pulses: Normal pulses. Heart sounds: Normal heart sounds. Pulmonary: Effort: Pulmonary effort is normal. No respiratory distress. Breath sounds: Examination of the right-upper field reveals rhonchi. Examination of the left-upper field reveals rhonchi. Examination of the right-middle field reveals rhonchi. Examination of the left-middle field reveals rhonchi. Examination of the right-lower field reveals rhonchi. Examination ofthe left- lower field reveals rhonchi. Rhonchi present. No wheezing. Abdominal: General: Bowel sounds are normal. Palpations: Abdomen is soft. Musculoskeletal: General: Normal range of motion. Skin: General: Skin is warm and dry. Capillary Refill: Capillary refill takes less than 2 seconds. Neurological: General: No focal deficit present. Mental Status: She is alert and oriented to person, place, and time. Psychiatric: Mood and Affect: Mood normal. Behavior: Behavior normal. Thought Content: Thought content normal. Assessment and Plan Acute cough (Primary) - XR CHEST 2 VIEWS SOB (shortness of breath) - XR CHEST 2 VIEWS Generalized weakness - URINALYSIS, REFLEX TO CULTURE (NOT FOR NEUTROPENIC PATIENTS); Future; Expected date: 09/02/2023 Risk and functional assessment - Information given by nurse. Follow-up: Return if symptoms worsen or fail to improve. | Check-out note: Pt needs chest xray today Wrap-Up Will follow up with chest xray when resulted. Pt is to follow up as needed. Pt is to notify us of any concerning or worsening symptoms. Strict ER precautions reviewed with thepatient for the weekend including any fevers, lethargy, shortness of breath, or worsening of symptoms. Pt expresses understanding and satisfaction with plan. Time: I spent a total of 20-29 minutes (exact time 25 mins) on the date of service in preparation, delivery, and documentation of the care provided to Tasha Sauer excluding any time spent in the performance of separately billed services. KAUR Gillespie * Nilsa Liang LPN - 09/02/2023 11:09 AM EDT Urinary Incontinence Plan of Care Documentation: (This education is for all patients over 65 regardless of symptoms) Current medications reconciled. Patient encouraged to: Practice kegal exercises Provide education materials Use the restroom every 2 hours throughout the day Limit caffeine, alcohol, spicy foods and acidic foods Keep a bladder diary Limit fluid intake 3-4 hours before bed Lose weight Prevent constipation Take fluid pills at a time when you can get to the bathroom quickly Control sugar better if diabetic Limit fluid intake to 60 oz. per day Wear support stockings (TEDs)if you have edema Nilsa Liang LPN 09/02/2023 documented in this encounter Nursing Notes * Nilsa Liang LPN - 09/02/2023 11:12 AM EDT Chief Complaint Patient presents with Acute Pt arrived with daughter for c/o cold sx, cough, wheezing, ears clicking and daughter states that she has been confused some. Has been ongoing since Monday last week.Has been Taking Mucinex DM. COVIDnegative at home. documented in this encounter Plan of Treatment Upcoming Encounters Date Type Department Care Team (Late st Contact Info) Description 09/06/2023 10:30 AM EDT Imaging Radiology [facility] [address] [facility] [place] [address] 09/12/2023 2:40 PM EDT Office Visit Pharmacy, [facility] [address] [facility] [place] [address] [facility] [address] [place] [address] 09/21/2023 2:00 PM EDT Office Visit Nephrology, [facility] [address] [place] [address] Juan Tovar MD [address] [place] [address] 09/21/2023 3:30 PM EDT Telemedicine Psychiatry, [facility] [address] [facility] [place] [address] Filemon Medina CRNP [address] [facility] [place] [address] 09/22/2023 3:45 PM EDT Telemedicine Orthopaedics [facility] [address] [place] [address] Zia Monsalve MD [address] [place] [address] 09/26/2023 1:30 PM EDT Office Visit Orthopaedics [facility] [address] [place] [address] Zia Monsalve MD [address] [place] [address] 10/10/2023 1:30 PM EDT Office Visit Interventional Pain Center, [facility] [address] [place] [address] Edgar Forde DO [address] [place] [address] 12/28/2023 3:20 PM EDT Office Visit Family Practice [facility] [address] [place] [address] Ghada Salazar MD [address] [place] [address] 02/13/2024 10:40 AM EDT Office Visit Sleep Disorders Ctr [facility] [address] [place] [id number] Sofia Romo, [address] [place] [address] Pending Results Name Type Priority Associated Diagnoses Date /Time XR CHEST 2 VIEWS Medical Imaging Routine Acute cough SOB (shortness of breath) 09/02/2023 12:07 PM EDT Scheduled Orders Name Type Priority Associated Diagnoses Orde r Schedule URINALYSIS, REFLEX TO CULTURE (NOT FOR NEUTROPENIC PATIENTS) Lab Routine Generalized weakness Expected: 09/02/2023, Expires: 09/01/2024 Health Maintenance Due Date Last Done Comments [...] Exam 03/02/2024 03/02/2023, 02/10/2022 Mammogram 03/29/2024 03/29/2023, 12/0 05/2021, 08/28/2013 Lipid Panel 06/14/2028 06/14/2023, 02/0 06/2022, 01/25/2021 DTaP,Tdap,and Td Vaccines (3 - [...] this encounter Medical Devices Implanted Type Area Horseback Excavator Device Identifier Shelf Expiration Date Model / Serial / Lot Mometasone Furoate Implant Min - [id number] Implanted:Qty: 1 on 07/18/2023 by Pat Umaña MD at OR [facility] Right: Nose [employer] PreggersCISooqini MACK 05/03/2024 [id number] / / [id number] documented as of this encounter Visit Diagnoses Diagnosis Acute cough- Primary SOB (shortness of breath) Shortness of breath Generalized weakness Other malaise and fatigue Risk and functional assessment Screening for unspecified condition documented in this encounter Care Teams Crystal Slicer Relationship Specialty Start Date End Date Ghada Salazar MD [address] [facility] [place] [address] PCP - General Internal Medicine 04/04/22 documented as of this encounter"
--- OUTSIDE RECORDS SUMMARY | 2023-09-09 23:41 | External Medical Summary | Summary of Care ---
Author Name Unknown Organization [facility] Address [address] [place] [address] Phone [phone] Care Team Providers Care Aviation Program Manager Name Role Phone Ghada Salazar MD Primary Care Provider Reason for Visit * Reason Comments Post-Op #3 Encounter Details Date Type Department Care Team (Late st Contact Info) Description 08/18/2023 10:45 AM EDT Office Visit Otolaryngology [facility] [address] [place] [address] Pat Umaña MD [address] [facility] [place] [address] Chronic sphenoidal sinusitis* Allergies No known active allergiesdocumented as of this encounter (statuses as of 08/18/2023) Medications Medication Sig Dispensed Refills Start Date [...] 05/29/2023 Active Additional Information Patient taking differently:2 [place] Each Nostril Daily(AM),Indications: as needed, Reported on 06/02/2023 Assure ID Duo Pro Pen [place] 31G X 5 MM (Insulin Pen Needle) [...] as of this encounter (statuses as of 08/18/2023) Active Problems Problem Noted Date Diagnosed Date [...] as of this encounter (statuses as of 08/18/2023) Resolved Problems Problem Noted Date Diagnosed Date Resolved Date Stage 3b chronic kidney disease (CKD) 02/09/2022 05/20/2022 Diabetic retinopathy associa nasra with type 2 diabetes mellitus 02/09/2022 05/20/2022 documented as of this encounter (statuses as of 08/18/2023) Immunizations Name Administration Dates Next Due COVID-19 mRNA, LNP-s, No Pre serve, 2-Dose Series ([email or web address]) 02/01/2021,07/09/2020,06/16/2020 COVID-19, LNP-s, No Preserve , Perfecto-sucrose, [...] Pressure - - Pulse - - Temperature 36.6 C (97.8 F) 08/18/2023 10:58 AM E DT Respiratory Rate - - Oxygen Saturation - - Inhaled Oxygen Concentration - - Weight - - Height 152.4 cm (5') 08/18/2023 10:58 AM EDT Body Mass Index - - documented in this encounter Progress Notes * Pat Umaña MD - 08/18/2023 11:12 AM EDT Patient returns today s/p RIGHT [...] budesonide rinses twice daily - follow up PRN - Pathology consistent with a mycetoma. I spent a total of 40-54 minutes (exact time 40 mins) on the date of service in preparation, delivery, and documentation of the care provided to Tasha Sauer excluding any time spent in the performance of separately billed services. Pat Umaña MD [facility] Otolaryngology - Head and Neck Surgery [place], [place] 08/18/2023 11:13 AM documented in this encounter Nursing Notes * Stacey Johns LPN - 08/18/2023 11:00 AM EDT Chief Complaint Patient presents with Post-Op #3 Patient returns today for post op #3. Pt doing well with no concerns. Pt states she is doing her rinses sporadically. Plan: - doing well - bilateral sinuses debrided today - continue saline irrigations twice daily - continue budesonide rinses twice daily - follow up in 1-2 week - Pathology consistent with a mycetoma. Pat Umaña MD [facility] Otolaryngology - Head and Neck Surgery [place], [place] 08/04/2023 9:19 AM documented in this encounter Plan of Treatment Upcoming Encounters Date Type Department Care Team (Late st Contact Info) Description 08/29/2023 12:30 PM EDT Office Visit Orthopaedics [facility] [address] [facility] [place] [address] Zia Monsalve MD [address] [facility] [address] 08/29/2023 2:00 PM EDT Office Visit Pharmacy, [facility] [address] [facility] [place] [address] [facility] [address] [place] [address] 09/06/2023 10:30 AM EDT Imaging Radiology [address] [facility] [place] [address] 09/21/2023 2:00 PM EDT Office Visit Nephrology, [facility] [address] [facility] [place], [place] [address] Juan Tovar MD [address] [facility] [place] [address] 09/21/2023 3:30 PM EDT Telemedicine Psychiatry, [facility] 132 [facility] [place] [address] Filemon Medina CRNP [address] [place] [address] 09/22/2023 3:45 PM EDT Telemedicine Orthopaedics [facility] [address] [place] [address] Zia Monsalve MD [address] [place] [address] 10/10/2023 1:30 PM EDT Office Visit Interventional Pain Center, [facility] [address] [place] [address] Edgar Forde DO [address] [place] [address] 12/28/2023 3:20 PM EDT Office Visit Family Practice [facility] [address] [place] [address] Ghada Salazar MD [address] [place] [address] Health Maintenance Due Date Last Done Comments [...] this encounter Medical Devices Implanted Type Area Teletypewriter Installer Device Identifier Shelf Expiration Date Model / Serial / Lot Mometasone Furoate Implant Min - [id number] Implanted:Qty: 1 on 07/18/2023 by Pat Umaña MD at [facility] Right: Nose [employer] MACK 05/03/2024 [id number] / / [id number] documented as of this encounter Visit Diagnoses Diagnosis Chronic sphenoidal sinusitis- Primary documented in this encounter Care Teams Aviation Program Manager Relationship Specialty Start Date End Date Ghada Salazar MD [address] [place] [address] PCP - General Internal Medicine 04/04/22 documented as of this encounter
--- OUTSIDE RECORDS SUMMARY | 2023-09-09 23:41 | External Medical Summary | Summary of Care ---
Author Name Unknown Organization [facility] Address [address] [place] [address] Phone [phone] Care Team Providers Care Business Leader Name Role Phone Ghada Salazar MD Primary Care Provider Reason for Visit * Auth/Cert Specialty Diagnoses / Procedures Referred By Lauren siegel Referred To Contact Diagnoses Chronic sphenoidal sinusitis Chronic sphenoidal sinusitis [J32.3] Procedures STEREOTACTIC CRANIAL EXTRADURAL NAVIGATION THERAPEUTIC FRACTURE OF NOSE NASAL ENDOSCOPY,TOTAL ETHMOIDECTOMY NASAL/SINUS ENDOSCOPY, SURGICAL STEREOTACTIC CRANIAL EXTRADURAL NAVIGATION FRACTURE OF NASAL TURBINATES THERAPEUTIC NASAL SINUS ENDOSCOPY WITH ETHMOIDECTOMY TOTAL NASAL SINUS ENDOSCOPY SPHENOIDOTOMY REMOVE TISSUE Referral ID Status Reason Start Date Expiration Date Visits Re quested Visits Authorized [id number] Encounter Details Date Type Department Care Team (Latest Contact Info) Description 07/18/2023 10:30 AM EDT - 07/18/2023 1:55 PM EDT Hospital Encounter [facility], Operating Room, [facility] - 4th Floor [address] [place] [address] Pat Posada MD [address] [place] [address] Discharge Disposition: Home - Self Care Allergies No known active allergiesdocumented as of this encounter (statuses as of 07/19/2023) Medications Medication Sig Dispensed Refills Start Date [...] every evening. 90 Tablet 1 05/10/2023 Active FLUoxetine HCl 20 MG Oral Capsule (PROzac) Take 1 Capsule by mouth in the morning. 90 Capsule 1 06/01/2023 Active FLUoxetine HCl 10 MG Oral Capsule (PROzac) Take 1 Capsule by mouth in the morning. Take with 20mg capsule for total daily dose of 10mg. 90 Capsule 1 06/01/2023 Active Assure ID Duo Pro Pen Clark 31G X 5 MM (Insulin Pen Needle) [...] with meals. 15 mL 3 07/17/2023 Active Insulin Lispro (1 Unit Dial) 100 UNIT/ML Subcutaneous Solution Pen-injector (HumaLOG KwikPen)Indication s:Type 2 diabetes mellitus with hemoglobin A1c goal of less than 7.0% (HCC) Inject 12 Units under the skin in the morning and 12 Units at noon and 12 Units in the evening. Inject before meals. 15 mL 3 04/26/2022 Discontinue d(Refill) documented as of this encounter (statuses as of 07/19/2023) Active Problems Problem Noted Date Diagnosed Date [...] as of this encounter (statuses as of 07/19/2023) Resolved Problems Problem Noted Date Diagnosed Date Resolved Date Stage 3b chronic kidney disease (CKD) 02/09/2022 05/20/2022 Diabetic retinopathy associa nasra with type 2 diabetes mellitus 02/09/2022 05/20/2022 documented as of this encounter (statuses as of 07/19/2023) Immunizations Name Administration Dates Next Due COVID-19 mRNA, LNP-s, No Pre serve, 2-Dose Series ([employer]) 02/01/2021,07/09/2020,06/16/2020 COVID-19, LNP-s, No Preserve , Perfecto-sucrose, Ages 12+ ([employer]) 07/05/2023,11/01/2021 Covid-19, Mrna, Lnp-s, Pf, B ivalent, 30 Mcg, IM, 12 yrs and above ([employer]) 10/06/2022,01/06/2022 HEP A - Hepatitis A (Adult [...] Sign Reading Time Taken Comments Blood Pressure 137/99 07/18/2023 1:46 PM EDT Pulse 81 07/18/2023 1:46 PM EDT Temperature 36.2 C (97.2 F) 07/18/2023 1:46 PM ED T Respiratory Rate 18 07/18/2023 1:46 PM EDT Oxygen Saturation 94% 07/18/2023 1:46 PM EDT Inhaled Oxygen Concentration - - Weight 103.9 kg (229 lb) 07/18/2023 10:42 AM EDT Height 152.4 cm (5') 07/18/2023 10:42 AM EDT Body Mass Index 44.72 07/18/2023 10:42 AM EDT documented in this encounter Discharge Instructions * Discharge Instr - AVS* Pat Posada MD - 07/18/2023 10:37 AM EDT DISCHARGE INSTRUCTIONS [address] [address] Patient Name: Tasha Sauer Discharge Date: 07/18/[address] Pat Posada of the department of ENT at [phone] during business hours for any questions or test results. For after-hours emergencies call [phone] and have your doctor paged. The information below provides you with the instructions and the list of medications you need to betaking following discharge from the hospital. If you have any questions, please ask before leaving.Please carry this letter with you when you see your doctor in the clinic. If you have questions, you can reach us at the numbers above. DISCHARGE INSTRUCTIONS FOR ENDOSCOPIC SINUS SURGERY NASAL IRRIGATIONS: The purpose of irrigating is to clean the secretions from your nose to help decrease scarring. Thisis extremely important. Good post-operative irrigation on your part is essential for a successful outcome. Use the [employer] sinus machine fur cleaner (shown to you at your pre-op appointment) to irrigate your nose/sinuses beginning the day after your surgery. Instructions: Place one packet of salt solution into the machine fur cleaner and fill the bottle with DISTILLED WATER. You may warm the saline solution to make this more comfortable (it should be warm NOT HOT). Stand over the sink or in the shower. Bend over at the waist (head facing toward the floor), insertthe tip of the syringe into the nose. Open your mouth. With gentle pressure, squeeze the solution into your nostril. Let the solution flow into the sink from your nose and mouth. Irrigate each nostril with 240ml of saline solution (one bottle per nostril) 3 times daily. Continue to irrigate with this amount until we instruct you otherwise. You may wish to mix your own saline solution. The recipe is as follows: 3 teaspoons of dennis/pickling salt (make sure it is NON-iodized salt) 2 teaspoons of baking soda 1 gallon of boiled or distilled water OTHER INSTRUCTIONS: SLEEPING - It is recommended that for the first few days after surgery that you sleep with your head elevated. This will decrease your post-operative nasal congestion. DIET - You may resume your normal diet as you feel up to it. A healthy, balanced diet is best for healing. ACTIVITY - You may resume light activity in 1-2 days. No strenuous physical activity is recommendedfor 2 weeks due to the risk of bleeding. If you feel tired over the first few days you should lie down and rest. MEDICATIONS - Resume your home medications. You will be given a prescription for pain medication when you leave the hospital. For mild discomfort take Tylenol, 2 every 4 to 6 hours as needed. For moderate discomfort, use your prescription as directed. DRIVING - Do not drive within 24 hours of receiving anesthesia. You are advised not to drive if youare taking prescription pain medication. PLEASE CALL OUR OFFICE IF YOU HAVE ANY OF THE FOLLOWING: Any vision problems Fever over 101 F Heavy or prolonged bright red bleeding from the nose Any questions or concerns Bloody drainage for the first 24-36 hours that tapers to clear/pink drainage is normal following sinus surgery. documented in this encounter Progress Notes * Pat Posada MD - 07/18/2023 10:36 AM EDT [facility] [place] [address] OUTPATIENT SURGERY DISCHARGE SUMMARY NOTE Name: Tasha Sauer Location: OR [facility]/[place] Date: 07/18/2023 Time: 10:36 AM Surgery Date: 07/18/2023 Procedure: STEREOTACTIC CRANIAL EXTRADURAL NAVIGATION, FRACTURE OF NASAL TURBINATES THERAPEUTIC, NASAL SINUS ENDOSCOPY WITH ETHMOIDECTOMY TOTAL, NASAL SINUS ENDOSCOPY SPHENOIDOTOMY REMOVE TISSUE N/A Right Right Right Surgeon: Pat Posada MD Discharge Diagnosis: CRS right sided After examination of this patient, I have determined she is ready for discharge to home when the patient meets criteria. Discharge instructions were given to the patient. documented in this encounter H&P Notes * Pat Posada MD - 07/18/2023 10:35 AM EDT HISTORY AND PHYSICAL EXAMINATION - Otolaryngology [address] [address] Name: Tasha Sauer Location: OR [facility]/[place] Date: 07/18/2023 Time: 10:35 AM PRESENTING PROBLEM (CHIEF COMPLAINT): CRS HISTORY OF PRESENT ILLNESS: The patient was seen and examined with Dr. Posada . Tasha is a 72 year old female with no significant past medical history. HOSPITAL PROBLEM LIST: Active Problems: * No active hospital problems. * POA = Present On Admission PAST MEDICAL HISTORY: none Past Medical History: Diagnosis Date Dental disease Diabetic retinopathy associated with type 2 diabetes mellitus ([facility]) 02/09/2022 Dizziness Dyslipidemia, goal LDL below 100 02/09/2022 Fatigue HTN (hypertension) Motion sickness Obesity PONV (postoperative nausea and vomiting) Severe episode of recurrent major depressive disorder ([facility]) 02/09/2022 Sleep apnea CPAP - intermittent use Stage 3b chronic kidney disease (CKD) ([facility]) 02/09/2022 Type 2 diabetes mellitus with hemoglobin A1c goal of less than 7.0% ([facility]) 02/09/2022 Vitamin D deficiency 02/09/2022 PAST SURGICAL HISTORY: none Past Surgical History: Procedure Laterality Date EGD, FLEXIBLE, DIAGNOSTIC N/A 06/07/2023 ESOPHAGOGASTRODUODENOSCOPY (EGD), FLEXIBLE, TRANSORAL, DIAGNOSTIC performed by Harry Pandey MDat ENDOSCOPY [facility] INFORMATION 2009 hysterectomy INFORMATION 2015 colonoscopy INFORMATION Left 2002 knee arthroscopy FAMILY HISTORY: Family History Problem Relation Age of Onset Other (Cerebral Hemorrhage) Mother Diabetes Mother Hypertension Mother Stroke Mother Other (AAA) Father Breast Cancer Daughter 43 SOCIAL HISTORY: Social History Tobacco Use Smoking status: Never Smokeless tobacco: Never Vaping Use Vaping Use: Never used Substance Use Topics Alcohol use: Yes Comment: rarely Drug use: Never No employer currently on file CURRENT HOSPITAL MEDICATIONS: Note that completed medications (per the MAR) continue to display for 24 hours. Ordered medicationsto be given in the future also display. Current Facility-Administered Medications Medication Dose Route Frequency Provider isolyte-S pH 7.4 infusion Intravenous Continuous Pat Posada MD ALLERGIES: Patient has no known allergies. REVIEW OF SYSTEMS: Constitutional: (-) otherwise negative PHYSICAL EXAMINATION: Eyes: pupils are equal round and reactive to light, extraocular muscles are intact, vision grossly intact Ears: auricles are normally formed without lesions, external auditory canals are patent and withoutlesion, tympanic membranes are intact and freely mobile, no perforations, no effusions, no significant retraction pockets Nose: septum is midline, turbinates are without abnormality, no masses, no polyps, no mucopus Oral Cavity: mucosa is moist without visualized or palpable lesion, tongue exhibits normal mobility Oropharynx: tonsils are nonenlarged bilaterally Neck: no abnormal adenopathy, no masses, no thyromegaly Chest: clear to auscultation, bilateral breath sounds Cardiovascular: S1, S2, regular rate and rhythm LABS: Labs reviewed as indicated below: IMPRESSION: OR today PLAN: OR today Pat Posada MD [facility] Otolaryngology - Head and Neck Surgery [place], [place] 07/18/2023 10:36 AM documented in this encounter Nursing Notes * Carrie Ontiveros RN - 07/06/2023 2:15 PM EDT Patient identified by: name/birthdate Person taught: Patient Optime case procedure confirmed with surgical consent Laterality confirmed as Right Surgery date at time of Pre-Surgery Center Encounter: 07/18/2023 What procedure is patient having? FESS with extradural computer navigation, right inferior turbinate out-fracture, right total ethmoidectomy, right sphenoidotomy with tissue removal. In an emergency, is patient willing to accept blood products or blood transfusion? unknown Do you need to place a blood bank order? No Anesthesia consent pool notified? N/A Anesthesia evaluation requested per case documentation? No Preop Evaluation Requested? No PATIENT EDUCATION SCREENING Person taught: Patient & daughter Josselyn Motivation Level: Asks Questions and Eager to Learn Language Barrier: No Physical Barrier: N/A METHOD: Lecture-telephone interview Patient Preferred Learning Methods: Lecture-Telephone interview Health History interview completed, questions answered, and the following patient instructions provided via telephone interview: Preoperative bathing instructions General preoperative instructions Medication instructions NPO instructions - If your normal morning routine take gabapentin and Prozac the morning of surgery. If you take metformin, hold it the evening before surgery as well. Pt's daughter states instructions for prednisonesay to hold the day of surgery. Follow Dr. Bland's instructions to hold ASA/NSAID/Fish oil 7 days pre-op. OUTCOME: State / Describe / Explain and Needs Reinforcement * Carrie Ontiveros RN - 07/06/2023 9:40 AM EDT Left message on mobile phone for return call @ [phone] by Patient at least one week prior to surgery date or to leave a number where they can be reached . Instructed clinic open hours are M-F 8:00a- 4:00p. * Carrie Ontiveros RN - 07/03/2023 1:19 PM EDT Spoke with patient who requested a call back later in the week. documented in this encounter OR Notes * OR Surgeon - Pat Posada MD - 07/18/2023 10:36 AM EDT OPERATIVE RECORD [facility] OUTPATIENT LOCATION: OR [facility] (Operating Room 5) SERVICE: Otolaryngology - Head & Neck Surgery - Facial Plastic Surgery DATE OF PROCEDURE: 07/18/2023 PRE-OP DIAGNOSIS: right CRS POST-OP DIAGNOSIS: Same PROCEDURE: Procedure(s): STEREOTACTIC CRANIAL EXTRADURAL NAVIGATION FRACTURE OF NASAL TURBINATES THERAPEUTIC NASAL SINUS ENDOSCOPY WITH ETHMOIDECTOMY TOTAL NASAL SINUS ENDOSCOPY SPHENOIDOTOMY REMOVE TISSUE SURGEON: PAT POSADA MD ASSISTANTS: NONE ANESTHESIA: General endotracheal anesthesia OPERATIVE FINDINGS: see below DRAINS and/or PACKS: None Right nasopore ESTIMATED BLOOD LOSS: 5 ML FLUIDS: 1000cc URINE: NA SPECIMEN(s) OBTAINED and DISPOSITION: right nasal contents to Surgical Pathology INDICATIONS & HISTORY: right sided CRS DESCRIPTION OF OPERATION: A timeout was held and the patient was identified and the procedure verified. Patient was intubated as per anesthesia protocol. Extradural computer navigation was registered within 2mm of accuracy and used throughout the case. 4% cocaine pledgets were placed bilaterally. Patient was then Prepped and draped in the standard fashion. Attention was turned to the right side. A zero degree scope was used and 1% lidocaine with 1:100,000 of epinephrine was injected into the axilla of the middle turbinate and the inferior turbinate. Inferior turbinate was out-fractured in the standard fashion using a freer. Attention was then turned to the ethmoids and a 0 degree scope was used. The bulla was entered inferio-medially and an anterior ethmoidectomy was performed taking care to identify the lamina laterally, skull-base superiorly and the middle turbinate medially using navigation. A posterior ethmoidectomy was then performed in the same fashion. Attention was then turned to the sphenoid. Transnasally, the superior turbinate was trimmed and thesphenoid os identified. A sphenoidotomy with tissue removal was performed in the standard fashion. The size of the os was that confirmed trans-ethmoidally. Sphenoid contents consistent with fungus ball. [place]-debrider used to debride the sinus and completley remove the fungus ball. Fast absorbing packing was then placed bilaterally, making sure the middle turbinate was nicely medialized. Propel stents were placed on the right. Stomach was suctioned and patient turned over to anesthesia for recovery. DISPOSITION: The patient was transferred to the the Post-Anesthesia Care Unit. APPARENT INTRAOPERATIVE COMPLICATIONS: none PATIENT CONDITION: stable ATTESTATION: Pat Posada MD was present for the entire case. cc: Professional Reimbursement and Compliance documented in this encounter Plan of Treatment Upcoming Encounters Date Type Department Care Team (Late st Contact Info) Description 07/25/2023 1:30 PM EDT Office Visit Otolaryngology [facility] [address] [place] [address] Pat Posada MD [address] [place] [address] 07/27/2023 2:00 PM EDT Telemedicine Psychiatry, [facility] [address] [place] [address] Filemon Medina CRNP [address] [place] [address] 08/04/2023 10:00 AM EDT Office Visit Otolaryngology [facility] [address] [place] [address] Pat Posada MD [address] [place] [address] 08/18/2023 10:45 AM EDT Office Visit Otolaryngology [facility] [address] [place] [address] Pat Posada MD [address] [place] [address] 08/29/2023 2:00 PM EDT Office Visit Pharmacy, [facility] [address] [place] [address] Dom[place] [facility] [address] [place] [address] 09/21/2023 2:00 PM EDT Office Visit Nephrology, Alber Dang [address] [place] [address] Juan Tovar MD [address] [place] [address] 10/31/2023 2:20 PM EDT Office Visit Sleep Disorders Ctr [facility] [address] [place] [id number] Sofia Romo DO [address] [place] [address] 12/28/2023 3:20 PM EDT Office Visit Family Practice [facility] [address] [place] [address] Ghada Salazar MD [address] [place] [address] Pending Results Name Type Priority Associated Diagnoses Date /Time SURGICAL PATHOLOGY Pathology Routine Chronic sphenoidal sinusitis 07/18/2023 12:12 PM EDT Scheduled Orders Name Type Priority Associated Diagnoses Orde r Schedule SURGICAL PATHOLOGY Pathology Routine Chronic sphenoidal sinusitis Release Upon Ordering for 1 Occurrences starting 07/18/2023 Health Maintenance Due Date Last Done Comments Hgb 09/05/1967 Cologuard 1994 Colonoscopy 1994 Colorectal Cancer Screening 1994 Fecal Occult Blood Test 1994 Sigmoidoscopy 1994 Depression Screening 02/09/2023 02/09/2022 Albumin/Creatinine Ratio 02/18/2023 02/18/2022 Diabetic Foot Exam 05/20/2023 05/20/2022 COVID-19 Vaccine ( season) 2023 07/05/2023, 10/06/2022, 01/06/2022, Additional history exists PTH 09/23/2023 09/22/2022, 02/18/2022 GFR 12/13/2023 06/14/2023, 12/16, 09/22/2022, Additional history exists HbA1c 12/13/2023 06/14/2023, 060 09/2022, 05/20/2022, Additional history exists Influenza Vaccine (FLU shot) (Season Ended) 2023 12/17/2021, 01/25/2021 Phosphate 12/30/2023 12/29/2022, 0 11/2022, 02/18/2022 Nephrology [...] this encounter Medical Devices Implanted Type Area Associate Counsel Device Identifier Shelf Expiration Date Model / Serial / Lot Mometasone Furoate Implant Min - [id number] Implanted:Qty: 1 on 07/18/2023 by Pat Posada MD at OR [facility] Right: Nose [employer] MACK 05/03/2024 [id number] / / [id number] documented as of this encounter Procedures Procedure Name Priority Date/Time Associated Diagnosis Comments GLUCOSE METER, POINT OF CARE CHRISTOPHER 07/18/2023 1:02 PM EDT GLUCOSE METER, POINT OF CARE CHRISTOPHER 07/18/2023 10:50 AM EDT documented in this encounter Results * (ABNORMAL) GLUCOSE METER, POINT OF CARE (07/18/2023 1:02 PM EDT) Glucose Meter 173(H) 70 - 120 mg/dL 07/18/2023 1:04 PM EDT [facility] Blood Whole blood specimen / Unknown 07/18/2023 1:02 PM EDT 07/18/2023 1:04 PM EDT Pat Posada MD LAB POINT OF CA RE TEST DOCKED DEVICE UNSOLICITED RESULTS Performing Organization Address [facility] de Phone Number [facility] [address] [place] [address] * (ABNORMAL) GLUCOSE METER, POINT OF CARE (07/18/2023 10:50 AM EDT) Glucose Meter 166(H) 70 - 120 mg/dL 07/18/2023 10:56 AM EDT [facility] Blood Whole blood specimen / Unknown 07/18/2023 10:50 AM EDT 07/18/2023 10:56 AM EDT Pat Posada MD LAB POINT OF CA RE TEST DOCKED DEVICE UNSOLICITED RESULTS Performing Organization Address [facility] de Phone Number [facility] [address] [place] [address] documented in this encounter Visit Diagnoses Diagnosis Chronic sphenoidal sinusitis documented in this encounter Administered Medications Inactive Administered Medications - up to 3 most recent administrations Medication Order MAR Action Action Date Dose Rate Site isolyte-S pH 7.4 infusion Intravenous, at 10 mL/hr, Plasma-LYTE 148, isolyte-S, and isolyte-S pH 7.4 are considered equivalent - including for MAR barcode scanning., CONTINUOUS, Starting on Mon07/18/23 at 1115, Until Mon07/18/23 at 1755, Pre-Op Restarted 07/18/2023 11:30 AM EDT Continue from Pre-Op 07/18/2023 11:08 AM EDT 10 mL/hr New Bag 07/18/2023 11:00 AM EDT 10 mL/hr documented in this encounter Active and Recently Administered Medications Times are shown in EDT. Scheduled Medication Order 07/16/2023 07/17/2023 07/18/2023 ceFAZolin in dextrose (Ancef) ivpb 2 g (COMPLETED) 2 g, IV Piggyback, ONCE, 1 dose, On Mon07/18/23 at 1115 1121 (Given - Provid er: Jennifer Field CRNA) Continuous Medication Order 07/16/2023 07/17/2023 07/18/2023 isolyte-S pH 7.4 infusion Intravenous, at 10 mL/hr, Plasma-LYTE 148, isolyte-S, and isolyte-S pH 7.4 are considered equivalent - including for MOE menezes scanning., CONTINUOUS, Starting on Mon07/18/23 at 1115, Until Mon07/18/23 at 1755, Pre-Op 1100 (New Bag - Prov ider: Deysi Eden RN)1108 (Continue from Pre-Op - Provider: Jennifer Field CRNA)1129 (Paused - Provider: Jennifer Field CRNA - Comment: Switch to gravity)1130 (Restarted - Provider: Jennifer Field CRNA) PRN Medication Order 07/16/2023 07/17/2023 07/18/2023 cocaine 4 % topical solution SOLN (CANCELED) ONCE PRN INTRA PROCEDURE, Starting on Mon07/18/23 at 1125, Until e 07/18/23 at 1225, Intra-Op 1125 (Given - Provid er: Pat Posada MD) lidocaine-epinephrine 1 %-1:[id number] inj (CANCELED) ONCE PRN INTRA PROCEDURE, Starting on Mon07/18/23 at 1200, Until 07/18/23 at 1226, Intra-Op 1200 (Given - Provid er: Pat Posada MD) documented in this encounter Care Teams Business Leader Relationship Specialty Start Date End Date Ghada Salazar MD [address] [place] [address] PCP - General Internal Medicine 04/04/22 documented as of this encounter
--- OUTSIDE RECORDS SUMMARY | 2023-09-09 23:42 | External Medical Summary | Summary of Care ---
Author Name Unknown Organization [facility] Address [address] [facility] [address] Phone [phone] Care Team Providers Care Hplc Chemist Name Role Phone Ghada Salazar MD Primary Care Provider Encounter Details Date Type Department Care Team (Late st Contact Info) Description 06/29/2023 Orders Only Pharmacy, [facility] [address] [facility] [place] [address] [facility] 21 [facility] [place] [address] HTN, goal below 130/80 Allergies No known active allergiesdocumented as of this encounter (statuses as of 06/29/2023) Medications Medication Sig Dispensed Refills Start Date [...] as needed for Pain, Moderate. 0 Active Insulin Lispro (1 Unit Dial) 100 UNIT/ML Subcutaneous Solution Pen-injector (HumaLOG KwikPen)Indicati ons:Type 2 diabetes mellitus with hemoglobin A1c goal of less than 7.0% (HCC) Inject 12 Units under the skin in the morning and 12 Units at noon and 12 Units in the evening. Inject before meals. 15 mL 3 3 Active Additional Information Patient taking differently: 16 UnitsSubcutaneous AC, Reported on 08/29/2022 Funmi Hernández SoloStar 300 UNIT/ML Subcutaneous Solution Pen-injector (Insulin [...] every evening. 90 Tablet 1 4 Active Fluticasone Propionate 50 MCG/ACT Nasal Suspension (Flonase)Indicat ions:Post-nasal drip Administer 2 Sprays into each nostril in the morning. 9.9 mL 3 4 Active Additional Information Patient taking differently:2 [place] Each Nostril Daily(AM),Indications: as needed, Reported on 06/02/2023 FLUoxetine HCl 20 MG Oral Capsule (PROzac) Take 1 Capsule by mouth in the morning. 90 Capsule 1 4 Active FLUoxetine HCl 10 MG Oral Capsule (PROzac) Take 1 Capsule by mouth in the morning. Take with 20mg capsule for total daily dose of 10mg. 90 Capsule 1 4 Active Assure ID Duo Pro Pen [place] 31G X 5 MM (Insulin Pen Needle) Use pen needles for insulin injection three times daily E11.9 300 Each 3 4 Active amLODIPine Besylate 5 MG Oral Tablet (Norvasc)Indicat ions:HTN, goal below 130/80 Take 1 Tablet by mouth in the morning. 30 Tablet 11 4 Active Gabapentin 600 MG Oral Tablet (Neurontin) Take 1 Tablet by mouth in the morning and 1 Tablet before bedtime. 60 Tablet 5 4 Active Telmisartan 80 MG Oral Tablet (Micardis)Indica tions:HTN, goal below 130/80 TAKE 1 TABLET BY MOUTH EVERY DAY IN THE MORNING 90 Tablet 1 4 Active amLODIPine Besylate 5 MG Oral Tablet (Norvasc)Indicat ions:HTN, goal below 130/80 Take 1 Tablet by mouth in the morning. 30 Tablet 11 3 06/29/19 24 Discontinu ed(Refill) Gabapentin 600 MG Oral Tablet (Neurontin) Take 1 Tablet by mouth in the morning and 1 Tablet before bedtime. 60 Tablet 5 3 06/29/19 24 Discontinu ed(Refill) Telmisartan 80 MG Oral Tablet (Micardis)Indica tions:HTN, goal below 130/80 TAKE 1 TABLET BY MOUTH EVERY DAY IN THE MORNING 90 Tablet 1 3 06/29/19 24 Discontinu ed(Refill) documented as of this encounter (statuses as of 06/29/2023) Active Problems Problem Noted Date Diagnosed Date [...] as of this encounter (statuses as of 06/29/2023) Resolved Problems Problem Noted Date Diagnosed Date Resolved Date Stage 3b chronic kidney disease (CKD) 02/09/2022 05/20/2022 Diabetic retinopathy associa nasra with type 2 diabetes mellitus 02/09/2022 05/20/2022 documented as of this encounter (statuses as of 06/29/2023) Immunizations Name Administration Dates Next Due COVID-19 mRNA, LNP-s, No Pre serve, 2-Dose Series (Pfizer) 02/01/2021,07/09/2020,06/16/2020 COVID-19, LNP-s, No Preserve , Perfecto-sucrose, [...] Upcoming Encounters Date Type Department Care Team (Latest Contact Info) Description 06/30/2023 11:30 AM EDT Office Visit Otolaryngology [facility] [address] [place] [address] Pat Umaña MD [address] [place] [address] 07/18/2023 11:35 AM EDT Hospital Encounter OR [facility], Operating Room, [facility] - 4th Floor [address] [place] [address] Pat Umaña MD [address] [place] [address] 07/18/2023 11:35 AM EDT - 07/18/2023 1:40 PM EDT Surgery OR [facility], Operating Room, [facility] - 4th Floor [address] [place] [address] Pat Umaña MD [address] [place] [address] STEREOTACTIC CRANIAL EXTRADURAL NAVIGATION 07/27/2023 2:00 PM EDT Telemedicine Psychiatry, [facility] [address] [place] [address] Filemon Medina CRNP [address] [place] [address] 08/29/2023 2:00 PM EDT Office Visit Pharmacy, [facility] [address] [place] [address] [facility] 132 [place] [address] 09/21/2023 2:00 PM EDT Office Visit Nephrology, [facility] [address] [place] [address] Juan Tovar MD [address] [place] [address] 10/31/2023 2:20 PM EDT Office Visit [facility] Disorders Ctr [facility] [address] [place] [phone] Sofia Romo DO [address] [place] [address] 12/28/2023 3:20 PM EDT Office Visit Family Practice [facility] [address] [place] [address] Ghada Salazar MD [address] [place] [address] Scheduled Procedures Name Priority Associated Diagnoses Date/Ti ct STEREOTACTIC CRANIAL EXTRADURAL NAVIGATION Chronic sphenoidal sinusitis 07/18/2023 11:35 AM EDT FRACTURE OF NASAL TURBINATES THERAPEUTIC Chronic sphenoidal sinusitis 07/18/2023 11:35 AM EDT NASAL SINUS ENDOSCOPY WITH ETHMOIDECTOMY TOTAL Chronic sphenoidal sinusitis 07/18/2023 11:35 AM EDT NASAL SINUS ENDOSCOPY SPHENOIDOTOMY REMOVE TISSUE Chronic sphenoidal sinusitis 07/18/2023 11:35 AM EDT Health Maintenance Due Date Last Done Comments Hgb 09/05/1967 Cologuard 1994 Colonoscopy 1994 Colorectal Cancer Screening 1994 Fecal Occult Blood Test 1994 Sigmoidoscopy 1994 COVID-19 Vaccine ( season) 2022 10/06/2022, 01/06/2022, 11/01/2021, Additional history exists Influenza Vaccine (FLU shot) (#1) 2022 12/17/2021, 01/25/2021 Depression Screening 02/09/2023 02/09/2022 Albumin/Creatinine Ratio 02/18/2023 02/18/2022 Diabetic Foot Exam 05/20/2023 05/20/2022 PTH 09/23/2023 09/22/2022, 02/18/2022 GFR 12/13/2023 06/14/2023, 12/16, 09/22/2022, Additional history exists HbA1c 12/13/2023 06/14/2023, 0 09/2022, 05/20/2022, Additional history exists Phosphate 12/30/2023 12/29/2022, 11/2022, [...] documented as of this encounter Medical Devices Not on filedocumented as of this encounter Visit Diagnoses Diagnosis HTN, goal below 130/80 Unspecified essential hypertension Chronic sphenoidal sinusitis documented in this encounter Care Teams Hplc Chemist Relationship Specialty Start Date End Date Ghada Salazar MD [address] [place] [address] PCP - General Internal Medicine 04/04/22 documented as of this encounter
--- OUTSIDE RECORDS SUMMARY | 2023-09-09 23:42 | External Medical Summary | Summary of Care ---
Author Name Unknown Organization [facility] Address [address] [place] [address] Phone [phone] Care Team Providers Care Grocery Sacker Name Role Phone aVle Salazar MD Primary Care Provider Reason for Visit * Reason Onset Date Comments Medication Refill 07/15/2023 Encounter Details Date Type Department Care Team (Late st Contact Info) Description 07/15/2023 Refill Pharmacy, [facility] [address] [place] [address] Vale Salazar MD [address] [place] [address] Type 2 diabetes mellitus with hemoglobin A1c goal of less than 7.0% (HCC) Allergies No known active allergiesdocumented as of this encounter (statuses as of 07/17/2023) Medications Medication Sig Dispensed Refills Start Date [...] 7.0% ([facility]) Inject 16 Units under the skin every [...] 05/29/2023 Active Additional Information Patient taking differently:2 [place] Each Nostril Daily(AM),Indications: as needed, Reported on 06/02/2023 FLUoxetine HCl 20 MG Oral Capsule (PROzac) Take 1 Capsule by mouth in the morning. 90 Capsule 1 06/01/2023 Active FLUoxetine HCl 10 MG Oral Capsule (PROzac) Take 1 Capsule by mouth in the morning. Take with 20mg capsule for total daily dose of 10mg. 90 Capsule 1 06/01/2023 Active Assure ID Duo Pro Pen [place] 31G X 5 MM (Insulin Pen Needle) [...] DAY FOR 30 SECONDS 0 05/09/2023 Active Insulin Lispro (1 Unit Dial) 100 UNIT/ML Subcutaneous Solution Pen-injector (HumaLOG KwikPen)Indication s:Type 2 diabetes mellitus with hemoglobin A1c goal of less than 7.0% (HCC) Inject 18 Units under the skin in the morning and 18 Units at noon and 18 Units in the evening. Inject before meals. 15 mL 3 07/17/2023 Active Insulin [...] as of this encounter (statuses as of 07/17/2023) Active Problems Problem Noted Date Diagnosed Date [...] as of this encounter (statuses as of 07/17/2023) Resolved Problems Problem Noted Date Diagnosed Date Resolved Date Stage 3b chronic kidney disease (CKD) 02/09/2022 05/20/2022 Diabetic retinopathy associa nasra with type 2 diabetes mellitus 02/09/2022 05/20/2022 documented as of this encounter (statuses as of 07/17/2023) Immunizations Name Administration Dates Next Due COVID-19 mRNA, LNP-s, No Pre serve, 2-Dose Series ([employer]) 02/01/2021,07/09/2020,06/16/2020 COVID-19, LNP-s, No Preserve , Perfecto-sucrose, Ages 12+ ([employer]) 07/05/2023,11/01/2021 Covid-19, Mrna, Lnp-s, Pf, B ivalent, 30 Mcg, IM, 12 yrs and above ([employer]) 10/06/2022,01/06/2022 HEP A - Hepatitis A (Adult [...] encounter Miscellaneous Notes * Telephone Encounter - Roc Reynolds [facility] - 07/17/2023 8:05 AM EDTSigned Prescriptions: Disp Refills Insulin Lispro (1 Unit Dial) 100 UNIT/ML S*15 mL 3 Sig: Inject 18 Units under the skin in the morning and 18 Units at noon and 18 Units in the evening. Inject before meals.Authorizing Provider: VALE SALAZAR User: ROC REYNOLDS documented in this encounter Plan of Treatment Upcoming Encounters Date Type Department Care Team (Latest Contact Info) Description 07/18/2023 12:05 PM EDT Hospital Encounter OR [facility], Operating Room, [facility] - 4th Floor [address] [place] [address] Pat Umaña MD [address] [address] 07/18/2023 12:05 PM EDT - 07/18/2023 2:10 PM EDT Surgery OR [facility], Operating Room, [facility] - 4th Floor [address] [place] [address] Pat Umaña MD [address] [address] STEREOTACTIC CRANIAL EXTRADURAL NAVIGATION 07/25/2023 1:30 PM EDT Office Visit Otolaryngology [facility] 132 [place] [address] Pat Umaña MD [address] [place] [address] 07/27/2023 2:00 PM EDT Telemedicine Psychiatry, [facility] [address] [place] [address] Filemon Medina CRNP [address] [place] [address] 08/04/2023 10:00 AM EDT Office Visit Otolaryngology [facility] [address] [place] [address] Pat Umaña MD [address] [place] [address] 08/18/2023 10:45 AM EDT Office Visit Otolaryngology [facility] [address] [place] [address] Pat Umaña MD [address] [place] [address] 08/29/2023 2:00 PM EDT Office Visit Pharmacy, [facility] [address] [place] [address] [facility] [place] [address] 09/21/2023 2:00 PM EDT Office Visit Nephrology, [facility] [address] [place] [address] Juan Tovar MD [address] [place] [address] 10/31/2023 2:20 PM EDT Office Visit Sleep Disorders Ctr [facility] [address] [place] [phone] Sofia Romo DO [address] [place] [address] 12/28/2023 3:20 PM EDT Office Visit Family [facility] [address] [place] [address] Vale Salazar MD [address] [place] [address] Scheduled Procedures Name Priority Associated Diagnoses Date/Ti oh STEREOTACTIC CRANIAL EXTRADURAL NAVIGATION Chronic sphenoidal sinusitis 07/18/2023 12:05 PM EDT FRACTURE OF NASAL TURBINATES THERAPEUTIC Chronic sphenoidal sinusitis 07/18/2023 12:05 PM EDT NASAL SINUS ENDOSCOPY WITH ETHMOIDECTOMY TOTAL Chronic sphenoidal sinusitis 07/18/2023 12:05 PM EDT NASAL SINUS ENDOSCOPY SPHENOIDOTOMY REMOVE TISSUE Chronic sphenoidal sinusitis 07/18/2023 12:05 PM EDT Health Maintenance Due Date Last [...] as of this encounter Visit Diagnoses Diagnosis Type 2 diabetes mellitus with hemoglobin A1c goal of less than 7.0% (HCC) Chronic sphenoidal sinusitis documented in this encounter Care Teams Grocery Sacker Relationship Specialty Start Date End Date Vale Salazar MD [address] [place] [address] PCP - General Internal Medicine 04/04/22 documented as of this encounter
--- OUTSIDE RECORDS SUMMARY | 2023-09-09 23:42 | External Medical Summary | Summary of Care ---
Author Name Unknown Organization [facility] Address [address] [facility] [address] Phone [phone] Care Team Providers Care Chopping Machine Operator Name Role Phone Ghada Salazar MD Primary Care Provider Encounter Details Date Type Department Care Team (Late st Contact Info) Description 06/27/2023 Orders Only Pharmacy, [facility] 132 [facility] [place] [address] [facility] 21 [facility] [address] [place] [address] Allergies No known active allergiesdocumented as of this encounter (statuses as of 06/27/2023) Medications Medication Sig Dispensed Refills Start Date End Date Status Aspirin EC 81 MG Oral Tablet Delayed ReleaseIndication s:Type 2 diabetes mellitus with hemoglobin A1c goal of less than 7.0% ([facility]) Take 1 Tablet by mouth [...] Dial) 100 UNIT/ML Subcutaneous Solution Pen-injector (HumaLOG KwikPen)Indicatio ns:Type 2 diabetes mellitus with hemoglobin A1c goal of less than 7.0% ([facility]) Inject 12 Units under the skin in the morning and 12 Units at noon and 12 Units in the evening. Inject before meals. 15 mL 3 04/26/2022 Active Additional Information Patient taking differently: 16 [...] SubcutaneousDaily(Non-Specified), Indications: in afternoon, Reported on 06/02/2023 amLODIPine Besylate 5 MG Oral Tablet (Norvasc)Indicati ons:HTN, goal below 130/80 Take 1 Tablet by mouth in the morning. 30 Tablet 11 06/29/2022 Active Fish Oil 1000 MG Oral Capsule Delayed Release Take 1 Capsule by mouth in the morning. 0 Active Gabapentin 600 MG Oral Tablet (Neurontin) Take 1 Tablet by mouth in the morning and 1 Tablet before bedtime. 60 Tablet 5 11/23/2022 Active Telmisartan 80 MG Oral Tablet (Micardis)Indicat ions:HTN, goal below 130/80 TAKE 1 TABLET BY MOUTH EVERY DAY IN THE MORNING 90 Tablet 1 12/30/2022 Active Cetirizine HCl 10 MG Oral Tablet [...] 05/29/2023 Active Additional Information Patient taking differently:2 [place] Each Nostril Daily(AM),Indications: as needed, Reported on 06/02/2023 FLUoxetine HCl 20 MG Oral Capsule (PROzac) Take 1 Capsule by mouth in the morning. 90 Capsule 1 06/01/2023 Active FLUoxetine HCl 10 MG Oral Capsule (PROzac) Take 1 Capsule by mouth in the morning. Take with 20mg capsule for total daily dose of 10mg. 90 Capsule 1 06/01/2023 Active Assure ID Duo Pro Pen [place] 31G X 5 MM (Insulin Pen Needle) Use pen needles for insulin injection three times daily E11.9 300 Each 3 06/16/2023 Active documented as of this encounter (statuses as of 06/27/2023) Active Problems Problem Noted Date Diagnosed Date [...] as of this encounter (statuses as of 06/27/2023) Resolved Problems Problem Noted Date Diagnosed Date Resolved Date Stage 3b chronic kidney disease (CKD) 02/09/2022 05/20/2022 Diabetic retinopathy associa nasra with type 2 diabetes mellitus 02/09/2022 05/20/2022 documented as of this encounter (statuses as of 06/27/2023) Immunizations Name Administration Dates Next Due COVID-19 mRNA, LNP-s, No Pre serve, 2-Dose Series ([employer]) 02/01/2021,07/09/2020,06/16/2020 COVID-19, LNP-s, No Preserve , Perfecto-sucrose, Ages 12+ (Pfizer) 11/01/2021 Covid-19, Mrna, Lnp-s, Pf, B ivalent, 30 Mcg, IM, 12 yrs and above ([employer]) 10/06/2022,01/06/2022 HEP A - Hepatitis A (Adult [...] 06/30/2023 11:30 AM EDT Office Visit Otolaryngology [facility] [address] [place] [address] Pat Umaña MD [address] [place] [address] 07/18/2023 11:35 AM EDT Hospital Encounter OR [facility], Operating Room, [facility] - 4th Floor [address] [place] [address] Pat Umaña MD [address] [place] [address] 07/18/2023 11:35 AM EDT - 07/18/2023 1:40 PM EDT Surgery OR [facility], Operating Room, [facility] - 4th Floor [address] [place] [address] Pat Umaña MD [address] [place] [address] STEREOTACTIC CRANIAL EXTRADURAL NAVIGATION 07/27/2023 2:00 PM EDT Telemedicine Psychiatry, [facility] [address] [place] [address] Filemon Medina CRNP [address] [place] [address] 08/29/2023 2:00 PM EDT Office Visit Pharmacy, [facility] [address] [place] [address] [facility] [address] [place] [address] 09/21/2023 2:00 PM EDT Office Visit Nephrology, [place] [address] [place] [address] Juan Tovar MD 200 [facility] [place] [address] 10/31/2023 2:20 PM EDT Office Visit Sleep Disorders Ctr [facility] [address] [place] [phone] Sofia Romo DO [address] [place] [address] 12/28/2023 3:20 PM EDT Office Visit Family Practice [facility] [address] [place] [address] Ghada Salazar MD [address] [place] [address] Scheduled Procedures Name Priority Associated Diagnoses Date/Ti me STEREOTACTIC CRANIAL EXTRADURAL NAVIGATION Chronic sphenoidal sinusitis [...] 06/14/2023, 06/0 09/2022, 05/20/2022, Additional history exists Hgb 12/30/2023 12/29/2022, 06/0 11/2022, 09/20/2022, Additional [...] Not on filedocumented as of this encounter Care Teams Chopping Machine Operator Relationship Specialty Start Date End Date Ghada Salazar MD [address] [place] [address] PCP - General Internal Medicine 04/04/22 documented as of this encounter
--- OUTSIDE RECORDS SUMMARY | 2023-09-09 23:42 | External Medical Summary | Summary of Care ---
Author Name Unknown Organization [facility] Address [address] [facility] [address] Phone [phone] Care Team Providers Care Sustain Engineer Name Role Phone Ghada Salazar MD Primary Care Provider Reason for Visit * Reason Onset Date Comments Medication Problem 07/17/2023 Encounter Details Date Type Department Care Team (Late st Contact Info) Description 07/17/2023 Telephone Pharmacy Call Center [phone] [facility] [place] [address] [place] [facility] [place] 132 [facility] [place] [address] Medication Problem Allergies No known active allergiesdocumented as of [...] 05/29/2023 Active Additional Information Patient taking differently:2 [place] Each Nostril Daily(AM),Indications: as needed, Reported on 06/02/2023 FLUoxetine HCl 20 MG Oral Capsule (PROzac) Take 1 Capsule by mouth in the morning. 90 Capsule 1 06/01/2023 Active FLUoxetine HCl 10 MG Oral Capsule (PROzac) Take 1 Capsule by mouth in the morning. Take with 20mg capsule for total daily dose of 10mg. 90 Capsule 1 06/01/2023 Active Assure ID Duo Pro Pen [place] 31G X 5 MM (Insulin Pen Needle) [...] mRNA, LNP-s, No Pre serve, 2-Dose Series ([employer]) 02/01/2021,07/09/2020,06/16/2020 COVID-19, LNP-s, No Preserve , Perfecto-sucrose, Ages 12+ ([employer]) 07/05/2023,11/01/2021 Covid-19, Mrna, Lnp-s, Pf, B [...] encounter Miscellaneous Notes * Telephone Encounter - Brittany Ibrahim RPh - 07/17/2023 2:40 PM EDT Patient Phone Numbers Spoke to [facility], they state only Brand name insulin is covered, sent down prescription for brand name Humalog. Brittany Ibrahim, Pharm D, BCACP Clinical Pharmacist 07/17/2023, 2:40 PM * Telephone Encounter - Vashti Bishop PHARM Tech - 07/17/2023 2:24 PM EDT Caller's name: Josselyn Walsh call back number(OFFICE NUMBER FOR ): [phone] Reason for call: pts daughter calling about the Humalog, said [facility]'t [facility] the [facility]. She would like to speak to the [facility] about when she can get more. Please advise and return her call. Thank you, Vashti Bishop Digital Marketing Lead Centralized Clinical Pharmacy Services 07/17/2023,2:24 PM documented in this encounter Plan of Treatment Upcoming Encounters Date Type Department Care Team (Latest Contact Info) Description 07/18/2023 11:38 AM EDT Hospital Encounter OR [facility], Operating Room, [facility] Floor [address] [place] [address] Pat Umaña MD [address] [place] [address] 07/18/2023 11:38 AM EDT - 07/18/2023 1:43 PM EDT Surgery OR [facility], Operating Room, [facility] Floor [address] [place] [address] Pat Umaña MD [address] [place] [address] STEREOTACTIC CRANIAL EXTRADURAL NAVIGATION 07/25/2023 1:30 PM EDT Office Visit Otolaryngology [facility] [address] [place] [address] Pat Umaña MD [address] [place] [address] 07/27/2023 2:00 PM EDT Telemedicine Psychiatry, [facility] [address] [place] [address] Filemon Medina CRNP [address] [place] [address] 08/04/2023 10:00 AM EDT Office Visit Otolaryngology [facility] [address] [place] [address] Pat Umaña MD [address] [place] [address] 08/18/2023 10:45 AM EDT Office Visit Otolaryngology [facility] [address] [place] [address] Pat Umaña MD [address] [place] [address] 08/29/2023 2:00 PM EDT Office Visit Pharmacy, [facility] [address] [place] [address] [facility] [address] [place] [address] 09/21/2023 2:00 PM EDT Office Visit Nephrology, [facility] [address] [place] [address] Juan Toavr MD [address] [place], [place] [address] 10/31/2023 2:20 PM EDT [facility] [address] [place] [phone] Sofia Romo DO [address] [place] [address] 12/28/2023 3:20 PM EDT Office Visit Family Practice [facility] [address] [place] [address] Ghada Salazar MD [address] [place] [address] Scheduled Procedures Name Priority Associated Diagnoses Date/Ti me STEREOTACTIC CRANIAL EXTRADURAL NAVIGATION Chronic sphenoidal sinusitis 07/18/2023 11:38 AM EDT FRACTURE OF NASAL TURBINATES THERAPEUTIC Chronic sphenoidal sinusitis 07/18/2023 11:38 AM EDT NASAL SINUS ENDOSCOPY WITH ETHMOIDECTOMY TOTAL Chronic sphenoidal sinusitis 07/18/2023 11:38 AM EDT NASAL SINUS ENDOSCOPY SPHENOIDOTOMY REMOVE TISSUE Chronic sphenoidal sinusitis 07/18/2023 11:38 AM EDT Health Maintenance Due Date Last [...] filedocumented as of this encounter Care Teams Sustain Engineer Relationship Specialty Start Date End Date Ghada Salazar MD 132 [facility] [place] [address] PCP - General Internal Medicine 04/04/22 documented as of this encounter
--- OUTSIDE RECORDS SUMMARY | 2023-09-09 23:42 | External Medical Summary | Summary of Care ---
Author Name Unknown Organization [facility] Address [address] [place] [address] Phone [phone] Care Team Providers Care Well Driller Helper Name Role Phone Ghada Salazar MD Primary Care Provider Reason for Visit * Reason Comments Dosage Adjustment In Person (Anticoag Cl inic) Diabetes Follow-Up Encounter Details Date Type Department Care Team (Late st Contact Info) Description 06/14/2023 10:00 AM EST Office Visit Pharmacy, [facility] [address] [facility] [address] [facility] [place] [address] Type 2 diabetes mellitus with hemoglobin A1c goal of less than 7.0% ([facility])* Allergies No known active allergiesdocumented as of this encounter (statuses as of 06/14/2023) Medications Medication Sig Dispensed Refills Start Date [...] 06/02/2023 amLODIPine Besylate 5 MG Oral Tablet (Norvasc)Indicat ions:HTN, goal below 130/80 Take 1 Tablet by mouth in the morning. 30 Tablet 11 3 Active Fish Oil 1000 MG Oral Capsule Delayed Release Take 1 Capsule by mouth in the morning. 0 Active Gabapentin 600 MG Oral Tablet (Neurontin) Take 1 Tablet by mouth in the morning and 1 Tablet before bedtime. 60 Tablet 5 3 Active Telmisartan 80 MG Oral Tablet (Micardis)Indica tions:HTN, goal below 130/80 TAKE 1 TABLET BY MOUTH EVERY DAY IN THE MORNING 90 Tablet 1 3 Active Cetirizine HCl 10 MG Oral Tablet [...] 4 Active Additional Information Patient taking differently:2 [place] Each Nostril Daily(AM),Indications: as needed, Reported on 06/02/2023 FLUoxetine HCl 20 MG Oral Capsule (PROzac) Take 1 Capsule by mouth in the morning. 90 Capsule 1 4 Active FLUoxetine HCl 10 MG Oral Capsule (PROzac) Take 1 Capsule by mouth in the morning. Take with 20mg capsule for total daily dose of 10mg. 90 Capsule 1 4 Active Pen [place] 32G X 4 MM Use as directed. Use to inject insulin up to 4 times daily E 11.9 300 Each 3 4 Active BD Pen Needle Short U/F 31G X 8 MM (Insulin Pen Needle)Indicatio ns:Type 2 diabetes mellitus with hemoglobin A1c goal of less than 7.0% ([facility]) Use to inject insulin 5 times daily 200 Each 3 3 06/14/19 24 Discontinu ed(Medicat ion/Dose Changed) documented as of this encounter (statuses as of 06/14/2023) Active Problems Problem Noted Date Diagnosed Date [...] as of this encounter (statuses as of 06/14/2023) Resolved Problems Problem Noted Date Diagnosed Date Resolved Date Stage 3b chronic kidney disease (CKD) 02/09/2022 05/20/2022 Diabetic retinopathy associa nasra with type 2 diabetes mellitus 02/09/2022 05/20/2022 documented as of this encounter (statuses as of 06/14/2023) Immunizations Name Administration Dates Next Due COVID-19 mRNA, LNP-s, No Pre serve, 2-Dose Series ([place]) 02/01/2021,07/09/2020,06/16/2020 COVID-19, LNP-s, No Preserve , Perfecto-sucrose, Ages 12+ (Pfizer) 11/01/2021 Covid-19, Mrna, Lnp-s, Pf, B ivalent, 30 Mcg, IM, 12 yrs and above ([employer]) 10/06/2022,01/06/2022 HEP A - Hepatitis A (Adult [...] as of this encounter Progress Notes * Brittany Ibrahim, [facility] - 06/14/2023 9:46 AM EST Images from the original note were not included. Medication Therapy Disease Management Clinic - Diabetes Management Progress Note Tasha Sauer, identified by name and date of , is a 72 year old female being seen for diabetes management/education. Patient presents for return diabetic visit. DIABETES: Current diabetic medications: Toujeo 15-16 units every morning Humalog 18 units with meals Medication Injection Site: Abdomen Lifestyle: Diet: eating less Glucose Review/SMBG: Readings obtained from patient device Hypoglycemia: Does your blood sugar go below 70 mg/dL? No Hyperglycemia symptoms present: none Recent Labs Units 09/20/22 1709 05/20/22 1251 12/06/21 0000 HEMOGLOBIN A1C - [facility] % 8.3* 8.8* -- HEMOGLOBIN, [id number] LAB % -- -- 11.1* Recent Labs Units 12/29/22 1450 09/22/22 1405 09/20/22 1709 ESTIMATED GLOMERULAR FILTRATION RATE - [facility] mL/min 25* 25* | 26* 26* CREATININE - [facility] mg/dL 2.0* 2.1* | 2.0* 2.0* CREATININE FOR CRCL - [facility] mg/dL -- 2* -- HYPERTENSION: Patient on ACEi/ARB: yes BP Readings from Last 3 Encounters: 06/07/23 121/59 02/23/23 152/72 01/24/23 130/62 Blood pressure at goal: yes HYPERLIPIDEMIA: Patient is taking moderate or high intensity statin: yes HEALTH MAINTENANCE REVIEW: Health Maintenance Due Topic Date Due Colorectal Cancer Screening Never done Influenza Vaccine (FLU shot) (1) 12/16/2022 COVID-19 Vaccine (2022- season) 2022 Depression Screening 02/09/2023 Albumin/Creatinine Ratio 02/18/2023 HbA1c 03/22/2023 Diabetic Foot Exam 05/20/2023 ASSESSMENT & PLAN: BG Readings - Blood sugars controlled. Bg values well controlled per kirk download, will await [id number] from lab. Medications - Reviewed current regimen, patient is adherent to regimen. Will continue at this time. Diet, Exercise, Lifestyle - No significant lifestyle changes since last visit. Discussed with patient. Patient is agreeable to CGM Patient aware to contact clinic if any hypoglycemia before next visit. MEDICATION CHANGES: no change Diabetic Medications: Toujeo 15-16 units every morning Humalog 18 units with meals HEALTH MAINTENANCE INTERVENTIONS: Labs: Up to Date Immunizations: Up to Date Foot Exam: Up to Date Eye Exam: Up to Date Annual Wellness Visit: Up to Date FOLLOW UP: Return to clinic in 12 weeks 08/29/2023 Brittany Ibrahim [facility] Clinical Pharmacist - Sleeve Ironer Medication Therapy Management Clinic 06/14/2023, 9:46 AM documented in this encounter Plan of Treatment Upcoming Encounters Date Type Department Care Team (Latest Contact Info) Description 06/30/2023 11:30 AM EDT Office Visit Otolaryngology [facility] [address] [place] [address] Pat Umaña MD [address] [place] [address] 07/18/2023 11:35 AM EDT Hospital Encounter OR [facility], Operating Room, [facility] - 4th Floor [address] [facility] [address] Pat Umaña MD [address] [place] [address] 07/18/2023 11:35 AM EDT - 07/18/2023 1:40 PM EDT Surgery OR [facility], Operating Room, [facility] - 4th Floor [address] [facility] [address] Pat Umaña MD [address] [place] [address] [facility]TR[employer] NAVIGATION 07/27/2023 2:00 PM EDT Telemedicine Psychiatry, [facility] [address] [place] [address] Filemon Medina CRNP [address] [place] [address] 08/29/2023 2:00 PM EDT Office Visit Pharmacy, [facility] [address] [place] [address] [facility] [address] [place] [address] 09/21/2023 2:00 PM EDT Office Visit Nephrology, Alber Dang [address] [place] [address] Juan Tovar MD [address] [place] [address] 10/31/2023 2:20 PM EDT Office Visit Sleep Disorders Ctr [facility] [address] [place] [phone] Sofia Romo DO [address] [place] [address] 12/28/2023 3:20 PM EDT Office Visit Family Practice [facility] [address] [place] [address] Ghada Salazar MD [address] [place] [address] Scheduled Procedures Name Priority Associated Diagnoses Date/Ti [...] Screening 02/09/2023 02/09/2022 Albumin/Creatinine Ratio 02/18/2023 02/18/2022 HbA1c 03/22/2023 09/20/2022, 020 06/2022, 12/06/2021 Diabetic Foot Exam 05/20/2023 05/20/2022 GFR 06/29/2023 06/14/2023, 12/16, 09/22/2022, Additional history exists PTH 09/23/2023 09/22/2022, 02/18/2022 Hgb 12/30/2023 12/29/2022, 06/0 11/2022, 09/20/2022, Additional history exists Phosphate 12/30/2023 12/29/2022, 06/0 11/2022, 02/18/2022 Nephrology Referral 01/20/2024 01/19/2023 Diabetic Eye Exam 03/02/2024 03/02/2023, 02/10/2022 Mammogram 03/29/2024 03/29/2023, 1205/2021, 08/28/2013 Lipid Panel 05/20/2027 05/20/2022, 01/25/2021 DTaP,Tdap,and Td Vaccines (3 - Td [...] hemoglobin A1c goal of less than 7.0% (HCC)- Primary Chronic sphenoidal sinusitis documented in this encounter Care Teams Well Driller Helper Relationship Specialty Start Date End Date Ghada Salazar MD [address] [place] [id number] PCP - General Internal Medicine 04/04/22 documented as of this encounter"
--- OUTSIDE RECORDS SUMMARY | 2023-09-09 23:42 | External Medical Summary | Summary of Care ---
Author Name Unknown Organization [facility] Address [address] [facility] [address] Phone [phone] Care Team Providers Care E Learning Developer Name Role Phone Ghada Salazar MD Primary Care Provider Reason for Visit * Reason Comments eRx-Medication Refill Encounter Details Date Type Department Care Team (Late st Contact Info) Description 06/29/2023 Refill Family Practice [facility] [address] [place] [phone] Ghada Salazar MD [address] [place] [address] HTN, goal below 130/80 Allergies No known active allergiesdocumented as of this encounter (statuses as of 06/29/2023) Medications Medication Sig Dispensed Refills Start Date End Date Status Aspirin EC 81 MG Oral Tablet Delayed ReleaseIndicatio ns:Type 2 diabetes mellitus with hemoglobin A1c goal of less than 7.0% ([facility]) Take 1 Tablet by mouth in the [...] 4 Active Additional Information Patient taking differently:2 [place] Each Nostril Daily(AM),Indications: as needed, Reported on 06/02/2023 FLUoxetine HCl 20 MG Oral Capsule (PROzac) Take 1 Capsule by mouth in the morning. 90 Capsule 1 4 Active FLUoxetine HCl 10 MG Oral Capsule (PROzac) Take 1 Capsule by mouth in the morning. Take with 20mg capsule for total daily dose of 10mg. 90 Capsule 1 4 Active Assure ID Duo Pro Pen [place] 31G X 5 MM (Insulin Pen Needle) [...] mRNA, LNP-s, No Pre serve, 2-Dose Series (Arganteal) 02/01/2021,07/09/2020,06/16/2020 COVID-19, LNP-s, No Preserve , Perfecto-sucrose, [...] 06/30/2023 11:30 AM EDT Office Visit Otolaryngology [facility] [address] [place] [address] Pat Umaña MD [address] [place] [address] 07/18/2023 11:35 AM EDT Hospital Encounter OR [facility], Operating Room, [facility] - 4th Floor [address] [place] [address] Pat Umaña MD [address] [place] [address] 07/18/2023 11:35 AM EDT - 07/18/2023 1:40 PM EDT Surgery OR [facility], Operating Room, [facility] - 4th Floor [address] [facility] [place] [address] Pat Umaña MD [address] [place] [address] STEREOTACTIC CRANIAL EXTRADURAL NAVIGATION 07/27/2023 2:00 PM EDT Telemedicine Psychiatry, [address] [place] [address] Filemon Medina CRNP [address] [place] [address] 08/29/2023 2:00 PM EDT [facility] [address] [place] [address] [facility] [address] [place] [address] 09/21/2023 2:00 PM EDT Office Visit Nephrology, Alber Dang [address] [place] [address] Juan Tovar MD [address] [place] [address] 10/31/2023 2:20 PM EDT Office Visit Sleep Disorders Ctr [address] [address] [facility] [address] [place] [phone] Sofia Romo DO [address] [place] [address] 12/28/2023 3:20 PM EDT Office Visit Family Practice [facility] [address] [place] [address] Ghada Salazar MD [address] [place] [address] Scheduled Procedures Name Priority Associated Diagnoses Date/Ti [...] 06/14/2023, 060 09/2022, 05/20/2022, Additional history exists Phosphate 12/30/2023 12/29/2022, 06/0 [...] sinusitis documented in this encounter Care Teams E Learning Developer Relationship Specialty Start Date End Date Ghada Salazar MD [address] [place] [address] PCP - General Internal Medicine 04/04/22 documented as of this encounter
--- OUTSIDE RECORDS SUMMARY | 2023-09-09 23:42 | External Medical Summary | Summary of Care ---
Author Name Unknown Organization [facility] Address [address] [place] [address] Phone [phone] Care Team Providers Care Sport Intern Name Role Phone Ghada Salazar MD Primary Care Provider Reason for Visit * Reason Comments Outpatient Testing Encounter Details Date Type Department Care Team (Late st Contact Info) Description 06/14/2023 10:40 AM EST Laboratory Laboratory, [facility] [place] [phone] [facility] [address] [place] [address] Type 2 diabetes mellitus with hemoglobin A1c goal of less than 7.0% ([facility]); CKD (chronic kidney disease) stage 4, GFR 15-29 ml/min (HCC); Dyslipidemia, goal LDL below 100 Allergies No known active allergiesdocumented as of this encounter (statuses as of 06/14/2023) Medications Medication Sig Dispensed Refills Start Date End Date Status Aspirin EC 81 MG Oral Tablet Delayed ReleaseIndication s:Type 2 diabetes mellitus with hemoglobin A1c goal of less than 7.0% ([facility]) Take 1 Tablet by mouth [...] the morning. 30 Tablet 11 06/29/2022 Active BD Pen Needle Short U/F 31G X 8 MM (Insulin Pen Needle)Indication s:Type 2 diabetes mellitus with hemoglobin A1c goal of less than 7.0% (HCC) Use to inject insulin 5 times daily 200 Each 3 08/03/2022 Active Fish Oil 1000 MG Oral Capsule [...] 05/29/2023 Active Additional Information Patient taking differently:2 [place] Each Nostril Daily(AM),Indications: as needed, Reported on 06/02/2023 FLUoxetine HCl 20 MG Oral Capsule (PROzac) Take 1 Capsule by mouth in the morning. 90 Capsule 1 06/01/2023 Active FLUoxetine HCl 10 MG Oral Capsule (PROzac) Take 1 Capsule by mouth in the morning. Take with 20mg capsule for total daily dose of 10mg. 90 Capsule 1 06/01/2023 Active documented as of this encounter (statuses [...] mRNA, LNP-s, No Pre serve, 2-Dose Series ([place]) 02/01/2021,07/09/2020,06/16/2020 COVID-19, LNP-s, No Preserve , Perfecto-sucrose, [...] Department Care Team (Latest Contact Info) Description 06/14/2023 10:50 AM EST [facility] [address] [place] [phone] [place] [address] 06/30/2023 11:30 AM EDT Office Visit [facility]ol[facility] [address] [place] [address] Pat Umaña MD [address] [place] [address] 07/18/2023 11:35 AM EDT Hospital Encounter OR [facility], Operating Room, [facility] - 4th Floor [address] [facility] [place] [address] Pat Umaña MD [address] [place] [address] 07/18/2023 11:35 AM EDT - 07/18/2023 1:40 PM EDT Surgery OR [facility], Operating Room, [facility] - 4th Floor [address] [facility] [place] [address] Pat Umaña MD [address] [place] [address] STEREOTACTIC CRANIAL EXTRADURAL NAVIGATION 07/27/2023 2:00 PM EDT Telemedicine Psychiatry, [facility] [address] [place] [address] Filemon Medina CRNP [address] [place] [address] 09/21/2023 2:00 PM EDT Office Visit Nephrology, Alber Dang [address] [place] [address] Juan Tovar MD [address] [place] [address] 10/31/2023 2:20 PM EDT Office Visit [facility] [address] [place] [phone] Sofia Romo DO [address] [place] [address] 12/28/2023 3:20 PM EDT Office Visit Family Practice [facility] [address] [place] [address] Ghada Salazar MD [address] [place] [address] Pending Results Name Type Priority Associated Diagnoses Date /Time HEMOGLOBIN A1C Lab Routine Type 2 diabetes mellitus with hemoglobin A1c goal of less than 7.0% ([facility]) 06/14/2023 9:52 AM EST LIPID PANEL WITH DIRECT LDL IF TG IS HIGH Lab Routine Type 2 diabetes mellitus with hemoglobin A1c goal of less than 7.0% ([facility]) 06/14/2023 9:52 AM EST BASIC METABOLIC PANEL Lab Routine CKD (chronic kidney disease) stage 4, GFR 15-29 ml/min ([facility]) 06/14/2023 9:52 AM EST Scheduled Procedures Name Priority Associated Diagnoses Date/Ti [...] Albumin/Creatinine Ratio 02/18/2023 02/18/2022 HbA1c 03/22/2023 09/20/2022, 02/0 06/2022, 12/06/2021 Diabetic Foot Exam 05/20/2023 05/20/2022 GFR 06/29/2023 12/29/2022, 06/0 11/2022, 09/22/2022, Additional history exists PTH 09/23/2023 09/22/2022, 02/18/2022 Hgb 12/30/2023 12/29/2022, 06/0 11/2022, 09/20/2022, Additional history exists Phosphate 12/30/2023 12/29/2022, 06/0 11/2022, 02/18/2022 Nephrology Referral 01/20/2024 01/19/2023 Diabetic Eye Exam 03/02/2024 03/02/2023, 02/10/2022 Mammogram 03/29/2024 03/29/2023, 05/2021, 08/28/2013 Lipid Panel 05/20/2027 05/20/2022, 01/25/2021 DTaP,Tdap,and [...] A1c goal of less than 7.0% (HCC) CKD (chronic kidney disease) stage 4, GFR 15-29 ml/min (HCC) Chronic kidney disease, Stage IV (severe) Dyslipidemia, goal LDL below 100 Other and unspecified hyperlipidemia Chronic sphenoidal sinusitis documented in this encounter Care Teams Sport Intern Relationship Specialty Start Date End Date Ghada Salazar MD [address] [place] [address] PCP - General Internal Medicine 04/04/22 documented as of this encounter
--- OUTSIDE RECORDS SUMMARY | 2023-09-09 23:42 | External Medical Summary ---
Author Name Unknown Address Unknown Organization [id number]:[facility]ATORY [facility] - [address] [facility] [address] Laboratory Report Ordering Provider Test Date Status SUZANNE COLLAZO 06/14/2023 09:52:21 Final Observation Date Value Abnormality Reference (Units ) Status HbA1C 06/14/2023 09:52:21 7.6 Above high normal 4. 0-5.6 (%) Final The use of HbA1c to monitor glycemic status is based on normal hemoglobin and HbA composition. This test should not be used in patients with abnormal hemoglobin that affects the half life of the red blood cell or the in vivo glycation rates. Glucose, estimated average 06/14/2023 09:52:21 171 Above high normal <126 (mg/dL) Konrad singh Performing Location [facility] - [address] [facility] [address]
--- OUTSIDE RECORDS SUMMARY | 2023-09-09 23:42 | External Medical Summary | Summary of Care ---
Author Name Unknown Organization [facility] Address [address] [place] [address] Phone [phone] Care Team Providers Care Cylinder Grinder Name Role Phone Ghada Salazar MD Primary Care Provider Reason for Visit * Auth/Cert Specialty Diagnoses / Procedures Referred By Lauren siegel Referred To Contact Diagnoses Dysphagia Dysphagia [R13.10] Procedures EGD, FLEXIBLE, DIAGNOSTIC ESOPHAGOGASTRODUODENOSCOPY (EGD), FLEXIBLE, TRANSORAL, DIAGNOSTIC Referral ID Status Reason Start Date Expiration Date Visits Re quested Visits Authorized [id number] Encounter Details Date Type Department Care Team (Latest Contact Info) Description 06/07/2023 11:16 AM EST - 06/07/2023 1:59 PM [facility] Hospital Encounter ENDO [facility], Endoscopy Room [facility] [address] [place] [phone] Harry Pandey MD [address] [facility] [place] [address] Upper GI Endoscopy Discharge Disposition: Home - Self Care Allergies No known active allergiesdocumented as of this encounter (statuses as of 06/08/2023) Medications Medication Sig Dispensed Refills Start Date [...] evening. Inject before meals. 15 mL 3 04/26/19 23 Active Additional Information Patient taking differently: 16 UnitsSubcutaneous AC, Reported on 08/29/2022 Toujeo Max SoloStar 300 UNIT/ML Subcutaneous Solution Pen-injector (Insulin Glargine (2 Unit Dial))Indication s:Type 2 diabetes mellitus with hemoglobin A1c goal of less than 7.0% (HCC) Inject 16 Units under the skin every morning. 15 mL 3 04/28/19 Active Additional Information Patient taking differently:16 Units SubcutaneousDaily(Non-Specified), Indications: in afternoon, Reported on 06/02/2023 amLODIPine Besylate 5 MG Oral Tablet (Norvasc)Indicat ions:HTN, goal below 130/80 Take 1 Tablet by mouth in the morning. 30 Tablet 11 06/30/19 23 Active BD Pen Needle Short U/F 31G X 8 MM (Insulin Pen Needle)Indicatio ns:Type 2 diabetes mellitus with hemoglobin A1c goal of less than 7.0% (HCC) Use to inject insulin 5 times daily 200 Each 3 08/04/19 23 Active Fish Oil 1000 MG Oral Capsule Delayed Release Take 1 Capsule by mouth in the morning. 0 Active Gabapentin 600 MG Oral Tablet (Neurontin) Take 1 Tablet by mouth in the morning and 1 Tablet before bedtime. 60 Tablet 5 11/24/19 23 Active Telmisartan 80 MG Oral Tablet (Micardis)Indica tions:HTN, goal below 130/80 TAKE 1 TABLET BY MOUTH EVERY DAY IN THE MORNING 90 Tablet 1 12/31/19 23 Active Cetirizine HCl 10 MG Oral Tablet Chewable (ZyrTEC)Indicati ons:as needed Take 1 Tablet by mouth in the morning. 0 Active oxyBUTYnin Chloride 5 MG Oral Tablet (Ditropan)Indica tions:Overactive bladder TAKE 1 TABLET BY MOUTH EVERY DAY IN THE MORNING 90 Tablet 3 05/05/19 24 Active Rosuvastatin Calcium 10 MG Oral Tablet (Crestor)Indicat ions:Dyslipidemi a, goal LDL below 100 Take 1 Tablet by mouth every evening. 90 Tablet 1 05/10/19 24 Active Fluticasone Propionate 50 MCG/ACT Nasal Suspension (Flonase)Indicat ions:Post-nasal drip Administer 2 Sprays into each nostril in the morning. 9.9 mL 3 05/29/19 24 Active Additional Information Patient taking differently:[address] [place] Each Nostril Daily(AM),Indications: as needed, Reported on 06/02/2023 FLUoxetine HCl 20 MG Oral Capsule (PROzac) Take 1 Capsule by mouth in the morning. 90 Capsule 1 06/01/19 24 Active FLUoxetine HCl 10 MG Oral Capsule (PROzac) Take 1 Capsule by mouth in the morning. Take with 20mg capsule for total daily dose of 10mg. 90 Capsule 1 06/01/19 24 Active FLUoxetine HCl 20 MG Oral Capsule (PROzac) Take 1 Capsule by mouth in the morning. 30 Capsule 2 03/21/20 23 024 Discontinued documented as of this encounter (statuses as of 06/08/2023) Active Problems Problem Noted Date Diagnosed Date [...] as of this encounter (statuses as of 06/08/2023) Resolved Problems Problem Noted Date Diagnosed Date Resolved Date Stage 3b chronic kidney disease (CKD) 02/09/2022 05/20/2022 Diabetic retinopathy associa nasra with type 2 diabetes mellitus 02/09/2022 05/20/2022 documented as of this encounter (statuses as of 06/08/2023) Immunizations Name Administration Dates Next Due COVID-19 mRNA, LNP-s, No Pre serve, 2-Dose Series (MCE-5 Development) 02/01/2021,07/09/2020,06/16/2020 COVID-19, LNP-s, No Preserve , Perfecto-sucrose, Ages 12+ (Pfizer) 11/01/2021 Covid-19, Mrna, Lnp-s, Pf, B ivalent, 30 Mcg, IM, 12 yrs and above (MCE-5 Development) 10/06/2022,01/06/2022 HEP A - Hepatitis A (Adult [...] Sign Reading Time Taken Comments Blood Pressure 121/59 06/07/2023 1:04 PM EST Pulse 46 06/07/2023 1:04 PM EST Temperature 36.2 C (97.1 F) 06/07/2023 1:04 PM ES T Respiratory Rate 14 06/07/2023 1:04 PM EST Oxygen Saturation 98% 06/07/2023 1:04 PM EST Inhaled Oxygen Concentration - - Weight 103.9 kg (229 lb) 06/07/2023 11:54 AM EST Height 154.9 cm (5' 0.98") 06/07/2023 11:[address] Body Mass Index 43.29 06/07/2023 11:54 AM EST documented in this encounter H&P Notes * Harry Pandey MD - 06/07/2023 12:16 PM EST Endoscopy Pre-Procedure Assessment Name: Tasha Sauer Date: 06/07/2023 Time: 12:16 PM Procedure: Upper GI Endoscopy; with Indication(s) of dysphagia or odynophagia Endoscopy Pre-Procedure Assessment: Prior to the procedure, the patient was identified. The patient's history, medications and allergies were reviewed as per the Anesthesia Assessment. The patient is competent. The risks and benefits of the proposed procedure and the planned sedation were discussed with the patient. All questions were answered and informed consent for the procedure was obtained. This patient has undergone a preprocedural evaluation. A determination has been made to proceed with the planned procedure under [facility] procedural guidelines and the CMS Non-Emergent, Elective Medical Services and Treatment Recommendations (published on 07-23-19). The community and hospital prevalence of COVID-19 has been discussed as well as this patient's specific risks associated with SARS-CoV-19 infection. Based upon the clinical acuity and patient-specific care considerations, this procedure is deemed a Tier II - Intermediate acuity treatment or service with either progression or the threat of progressive disease related to the delay in treatment. Not providing the service has the potential for increasing morbidity or mortality. BP 138/64 | Pulse 61 | Ht 1.549 m (5' 0.98") | Wt 103.9 kg (229 lb) | SpO2 97% | BMI 43.29 kg/m |BSA 2.11 m Prior to Admission medications Medication Sig Last Dose Discont. FLUoxetine HCl 10 MG Oral Capsule (PROzac) Take 1 Capsule by mouth in the morning. Take with 20mg capsule for total daily dose of 10mg. 06/07/2023 FLUoxetine HCl 20 MG Oral Capsule (PROzac) Take 1 Capsule by mouth in the morning. 06/07/2023 Rosuvastatin Calcium 10 MG Oral Tablet (Crestor) Take 1 Tablet by mouth every evening. 06/07/2023 oxyBUTYnin Chloride 5 MG Oral Tablet (Ditropan) TAKE 1 TABLET BY MOUTH EVERY DAY IN THE MORNING 06/06/2023 Telmisartan 80 MG Oral Tablet (Micardis) TAKE 1 TABLET BY MOUTH EVERY DAY IN THE MORNING 06/06/2023 Gabapentin 600 MG Oral Tablet (Neurontin) Take 1 Tablet by mouth in the morning and 1 Tablet beforebedtime. 06/07/2023 Fish Oil 1000 MG Oral Capsule Delayed Release Take 1 Capsule by mouth in the morning. Past Week amLODIPine Besylate 5 MG Oral Tablet (Norvasc) Take 1 Tablet by mouth in the morning. 06/06/2023 Toujeo Max SoloStar 300 UNIT/ML Subcutaneous Solution Pen-injector (Insulin Glargine (2 Unit Dial))Inject 16 Units under the skin every morning. Patient taking differently: Inject 16 Units under the skin daily. 06/06/2023 Insulin Lispro (1 Unit Dial) 100 UNIT/ML Subcutaneous Solution Pen-injector (HumaLOG KwikPen) Inject 12 Units under the skin in the morning and 12 Units at noon and 12 Units in the evening. Inject before meals. Patient taking differently: Inject 16 Units under the skin in the morning and 16 Units at noon and 16 Units in the evening. Inject before meals. 06/06/2023 Acetaminophen 325 MG Oral Tablet Take 1 Tablet by mouth every 6 hours as needed for Pain, Moderate.06/07/2023 Aspirin EC 81 MG Oral Tablet Delayed Release Take 1 Tablet by mouth in the morning. 06/02/2023 B-12 500 MCG Oral Tablet Take by mouth . 06/06/2023 D3 5000 125 MCG (5000 UT) Oral Capsule (Cholecalciferol) Take 1 Capsule by mouth in the morning. Past Week Fluticasone Propionate 50 MCG/ACT Nasal Suspension (Flonase) Administer 2 Sprays into each nostril in the morning. Patient taking differently: Administer 2 Sprays into each nostril in the morning. Cetirizine HCl 10 MG Oral Tablet Chewable (ZyrTEC) Take 1 Tablet by mouth in the morning. Over 30 Days BD Pen Needle Short U/F 31G X 8 MM (Insulin Pen Needle) Use to inject insulin 5 times daily Review of patient's allergies indicates: No Known Allergies Physical Exam: Mental Status Examination: alert and oriented. General: nad, calm Airway Examination: normal oropharyngeal airway and neck mobility. CV: no JVD Respiratory Examination: symmetrical excursion Abd:soft/ntd ASA Grade: III - A patient with severe systemic disease. After reviewing the risks and benefits, the patient was deemed in satisfactory condition to undergothe procedure. The anesthesia plan was to use general anesthesia. Harry Pandey MD 06/07/2023 documented in this encounter Procedure Notes * Ghada Salazar MD - 06/07/2023 12:16 PM ESTAssociated Order(s): UPPER GI ENDOSCOPY [facility] Patient Name: Tasha Sauer Procedure Date: 06/07/2023 12:16 PM Date of : 1950 Admit Type: Outpatient Note Status: Finalized Date of : 1950 Admit Type: Outpatient Age: 72 Room: [facility] 2 Gender: Female Note Status: Finalized Procedure: Upper GI endoscopy Indications: Dysphagia Providers: Harry Pandey MD (Doctor) Referring MD: Ghada Salazar MD (Referring MD), José Colmenares (Referring MD) Medicines: Propofol per Anesthesia Complications: No immediate complications. Estimated blood loss: None. Procedure: Pre-Anesthesia Assessment: - - Prior to the procedure, a History and Physical was performed, patient medications, allergies and sensitivities were reviewed. The patient's tolerance of previous anesthesia was reviewed. See [facility] for further details. - The risks, benefits, and alternatives of the procedure including the sedation options and risks were discussed with the patient. All questions were answered and informed consent was obtained. - Patient identification and proposed procedure were verified prior to the procedure by the physician and the nurse. The procedure was verified in the procedure room. - See [facility] for documentation of the pre-procedure assessment including ASA status. - After I obtained informed consent, the scope was carefully and meticulously passed under direct vision only when the lumen was definitively identified. CO2 insufflation was utilized throughout the entire procedure exclusively. After obtaining informed consent, the endoscope was passed under direct vision. All instruments were visually inspected immediately before and after removal from the patient to ensure they are fully intact. Throughout the procedure, the patient's blood pressure, pulse, and oxygen saturations were monitored continuously.The upper GI endoscopy was accomplished without difficulty. The patient tolerated the procedure well. The GIF-HQ190 Endoscope ([id number]) was introduced through the mouth, and advanced to the second part of duodenum. Findings & Specimens: No endoscopic abnormality was evident in the esophagus to explain the patient's complaint of dysphagia. It was decided, however, to proceed with dilation of the entire esophagus. A guidewire was placed and the scope was withdrawn. Dilation was performed with a Savary dilator with no resistance at 15 mm. The dilation site was examined and showed no change. The entire examined stomach was normal. The examined duodenum was normal. Impression: - No endoscopic esophageal abnormality to explain patient's dysphagia. Esophagus dilated. Dilated. - Normal stomach. - Normal examined duodenum. - No specimens collected. Recommendation: - Discharge patient to home (with escort). - Return to referring physician as previously scheduled. - Continue present medications. - If no improvement, please refer for manometry as likely age related changes. Harry Pandey MD 06/07/2023 1:04:24 PM This report has been signed electronically. documented in this encounter Nursing Notes * Monserrat Gandhi RN - 06/07/2023 1:58 PM EST Patient is alert, pain free, passing flatus and tolerating po fluids prior to discharge. Patient has been visited by Dr. Pandey. Patient has received and demonstrates understanding of discharge instructions. Patient ambulates to private auto accompanied by endo staff. * Monserrat Gandhi RN - 06/07/2023 1:[address] Pandey in to speak with pt and her daughter, discusses her procedure with them. Daughter going to pull the car to the sweet pickled fruit maker area. * Cory Daniels RN - 06/07/2023 1:15 PM EST Pt. Awake, tolerating po fluids w/o difficulty. No c/o complications at this time. * Cory Daniels RN - 06/07/2023 1:11 PM EST Pt post EGD, not colonoscopy. * Cory Daniels RN - 06/07/2023 1:10 PM EST Patient transferred to post endo s/p colonoscopy. Patient sleeping. Respirations are even and unlabored on room air. NSR in the 40s on the monitor. Abdomen soft and non distended. Vital signs stable. * Sunita Jones RN - 06/07/2023 12:59 PM EST Pt anatoliy EGD w/ dilation w/ 45fr savary dilator well. Abd soft post proc. No specimens obtained. To recovery lying on L side w/ HOB elevated. Pre cleaning of scope at the bedside started by quality assurance technician.\\ * Gloria Ortiz RN - 06/07/2023 12:13 PM EST The following pt discharge instructions reviewed with pt prior to prodedure: No driving today. No alcohol today. No signing of legal documents. Rest as much as possible today and can return to normal activities tomorrow. No operating any heavy equipment today. Diet as tolerated. Pt verbalized understanding. documented in this encounter Plan of Treatment Upcoming Encounters Date Type Department Care Team (Latest Contact Info) Description 06/14/2023 9:10 AM EST Laboratory Laboratory, [facility] [address] [place] [phone] [address] [place] [address] 06/14/2023 10:00 AM EST Office Visit Pharmacy, [facility] [place] [address] [address] [facility] [address] [place] [address] 06/30/2023 11:30 AM EDT Office Visit Otolaryngology [facility] [address] [place] [address] Pat Umaña MD [address] [place] [address] 07/18/2023 7:30 AM EDT Hospital Encounter OR [facility], Operating Room, [facility] - 4th Floor [address] [place] [address] Pat Umaña MD [address] [place] [address] 07/18/2023 7:30 AM EDT - 07/18/2023 9:15 AM EDT Surgery OR [facility], Operating Room, [facility] - 4th Floor [address] [place] [address] Pat Umaña MD [address] [place] [address] STEREOTACTIC CRANIAL EXTRADURAL NAVIGATION 07/27/2023 2:00 PM EDT Telemedicine Psychiatry, [facility] [address] [facility] [place] [address] Filemon Medina CRNP [address] [place] [address] 09/12/2023 2:40 PM EDT Office Visit Nephrology, [facility] [address] [place] [address] Juan Tovar MD [address] [place] [address] 10/31/2023 2:20 PM EDT Office Visit Sleep Disorders Ctr [facility] [address] [facility] [place] [phone] Sofia Romo DO [address] [facility] [place] [address] 12/28/2023 3:20 PM EDT Office Visit Family Practice [facility] [address] [facility] [place] [address] Ghada Salazar MD [address] [facility] [place] [address] Scheduled Orders Name Type Priority Associated Diagnoses Orde r Schedule GLUCOSE METER, POINT OF CARE (COMMUNICATION ORDER) Point of Care Testing Routine As Needed until discontinued starting 06/07/2023 Scheduled Procedures Name Priority Associated Diagnoses Date/Ti mo STEREOTACTIC CRANIAL EXTRADURAL NAVIGATION Chronic sphenoidal sinusitis 07/18/2023 7:30 AM EDT FRACTURE OF NASAL TURBINATES THERAPEUTIC Chronic sphenoidal sinusitis 07/18/2023 7:30 AM EDT NASAL SINUS ENDOSCOPY WITH ETHMOIDECTOMY TOTAL Chronic sphenoidal sinusitis 07/18/2023 7:30 AM EDT NASAL SINUS ENDOSCOPY SPHENOIDOTOMY REMOVE TISSUE Chronic sphenoidal sinusitis 07/18/2023 7:30 AM EDT Health Maintenance Due Date Last [...] Not on filedocumented as of this encounter Procedures Procedure Name Priority Date/Time Associated Diagnosis Comments GLUCOSE METER, POINT OF CARE CHRISTOPHER 06/07/2023 12:20 PM EST UPPER GI ENDOSCOPY 06/07/2023 12 :16 PM EST documented in this encounter Results * (ABNORMAL) GLUCOSE METER, POINT OF CARE (06/07/2023 12:20 PM EST) Glucose Meter 154(H) 70 - 120 mg/dL 06/07/2023 12:32 PM EST [facility]00 Blood Whole blood specimen / Unknown 06/07/2023 12:20 PM EST 06/07/2023 12:32 PM EST Harry Pandey MD LAB POINT OF CARE TE ST DOCKED DEVICE UNSOLICITED RESULTS Performing Organization Address City/State/[facility] Co de Phone Number [phone] [place] [address] * UPPER GI ENDOSCOPY (06/07/2023 12:16 PM EST) 06/07/2023 12:1 6 PM EST Narrative Procedure Note Ghada Salazar MD - 06/07/2023 12:16 PM EST [facility] Patient Name: Tasha Sauer Procedure Date: 06/07/2023 12:16 PM Date of : 1950 Admit Type: Outpatient Note Status:Finalized Date of : 1950 Admit Type: Outpatient Age: 72 Room: Endo 2 Gender: Female Note Status: Finalized Procedure: Upper GI endoscopy Indications: Dysphagia Providers: Harry Pandey MD (Doctor) Referring MD: Ghada Salazar MD (Referring MD), José Colmenares(Referring MD) Medicines: Propofol per Anesthesia Complications: No immediate complications. Estimated blood loss:None. Procedure: Pre-Anesthesia Assessment: - - Prior to the procedure, a History and Physicalwas performed, patient medications, allergies and sensitivities were reviewed. Thepatient's tolerance of previous anesthesia was reviewed. See [facility] for furtherdetails. - The risks, benefits, and alternatives of theprocedure including the sedation options and risks were discussed with the patient.All questions were answered and informed consent was obtained. - Patient identification and proposed procedurewere verified prior to the procedure by the physician and the nurse. The procedure wasverified in the procedure room. - See [facility] for documentation of the pre-procedureassessment including ASA status. - After I obtained informed consent, the scope wascarefully and meticulously passed under direct vision only when the lumen wasdefinitively identified. CO2 insufflation was utilized throughout the entire procedureexclusively. After obtaining informed consent, the endoscope waspassed under direct vision. All instruments were visually inspected immediatelybefore and after removal from the patient to ensure they are fully intact. Throughout the procedure, the patient's bloodpressure, pulse, and oxygen saturations were monitored continuously.The upper GI endoscopywas accomplished without difficulty. The patient tolerated the procedurewell. The GIF-HQ190 Endoscope ([id number]) was introduced through the mouth, andadvanced to the second part of duodenum. Findings & Specimens: No endoscopic abnormality was evident in the esophagus to explain thepatient's complaint of dysphagia. It was decided, however, to proceed with dilation of the entireesophagus. A guidewire was placed and the scope was withdrawn. Dilation was performed with a Savary dilatorwith no resistance at 15 mm. The dilation site was examined and showed no change. The entire examined stomach was normal. The examined duodenum was normal. Impression: - No endoscopic esophageal abnormality to explainpatient's dysphagia. Esophagus dilated. Dilated. - Normal stomach. - Normal examined duodenum. - No specimens collected. Recommendation: - Discharge patient to home (with escort). - Return to referring physician as previouslyscheduled. - Continue present medications. - If no improvement, please refer for manometry aslikely age related changes. Harry Pandey MD 06/07/2023 1:04:24 PM This report has been signed electronically. Ghada Salazar MD [facility] documented in this encounter Administered Medications Inactive Administered Medications - up to 3 most recent administrations Medication Order MAR Action Action Date Dose Rate Site isolyte-S pH 7.4 infusion Intravenous, at 100 mL/hr, Plasma-LYTE 148, isolyte-S, and isolyte-S pH 7.4 are considered equivalent - including for MAR barcode scanning., CONTINUOUS, Starting on Mon06/07/23 at 1215, Until Mon06/07/23 at 1759, Pre-Op Continue from Pre-Op 06/07/2023 12:44 PM EST 100 mL/hr New Bag 06/07/2023 12:26 PM EST 100 mL/hr documented in this encounter Active and Recently Administered Medications Times are shown in EST. Continuous Medication Order 06/05/2023 06/06/2023 06/07/2023 isolyte-S pH 7.4 infusion Intravenous, at 100 mL/hr, Plasma-LYTE 148, isolyte-S, and isolyte-S pH 7.4 are considered equivalent - including for MAR barcode scanning., CONTINUOUS, Starting on Mon06/07/23 at 1215, Until Mon06/07/23 at 1759, Pre-Op 1226 (New Bag - Prov ider: Gloria Ortiz RN)1244 (Continue from Pre-Op - Provider: Marco Chase CRNA) documented in this encounter Care Teams Cylinder Grinder Relationship Specialty Start Date End Date Ghada Salazar MD [address] [facility] [place] [address] PCP - General Internal Medicine 04/04/22 documented as of this encounter
--- OUTSIDE RECORDS SUMMARY | 2023-09-09 23:42 | External Medical Summary | Summary of Care ---
Author Name Unknown Organization [facility] Address [address] [place] [address] Phone [phone] Care Team Providers Care Gemologist Name Role Phone Ghada Salazar MD Primary Care Provider Encounter Details Date Type Department Care Team ([facility] Contact Info) Description 07/17/2023 Orders Only Pharmacy [address] [phone] [facility] [address] [place] [address] Allergies No known active allergiesdocumented as of this encounter (statuses as of 07/17/2023) Medications Medication Sig Dispensed Refills Start Date End Date Status Aspirin EC 81 MG Oral Tablet Delayed ReleaseIndication s:Type 2 diabetes mellitus with hemoglobin A1c goal of less than 7.0% ([facility]) Take 1 Tablet by mouth [...] A1c goal of less than 7.0% ([facility]) Inject 16 Units under the [...] 05/29/2023 Active Additional Information Patient taking differently:2 [place] Each Nostril Daily(AM),Indications: as needed, Reported on 06/02/2023 FLUoxetine HCl 20 MG Oral Capsule (PROzac) Take 1 Capsule by mouth in the morning. 90 Capsule 1 06/01/2023 Active FLUoxetine HCl 10 MG Oral Capsule (PROzac) Take 1 Capsule by mouth in the morning. Take with 20mg capsule for total daily dose of 10mg. 90 Capsule 1 06/01/2023 Active Assure ID Duo Pro Pen [place] 31G X 5 MM (Insulin Pen Needle) [...] Inject before meals. 15 mL 3 07/17/2023 07/17/19 24 Discontinued documented as of this encounter [...] mRNA, LNP-s, No Pre serve, 2-Dose Series (Versartis) 02/01/2021,07/09/2020,06/16/2020 COVID-19, LNP-s, No Preserve , Perfecto-sucrose, Ages 12+ (Pfizer) 07/05/2023,11/01/2021 Covid-19, Mrna, Lnp-s, Pf, B ivalent, 30 Mcg, IM, 12 yrs and above (Versartis) 10/06/2022,01/06/2022 HEP A - Hepatitis A (Adult [...] 07/18/2023 11:38 AM EDT Hospital Encounter OR [facility], Operating Room, [facility] - 4th Floor [address] [place] [address], [place] [address] Pat Umaña MD [address] [place] [address] 07/18/2023 11:38 AM EDT - 07/18/2023 1:43 PM EDT Surgery OR [facility], Operating Room, [facility] - 4th Floor [address] [facility] [place] [address] Pat Umaña MD [address] [place] [address] STEREOTACTIC CRANIAL EXTRADURAL NAVIGATION 07/25/2023 1:30 PM EDT Office Visit Otolaryngology [facility] [address] [place] [address] Pat Umaña MD [address] [place] [address] 07/27/2023 2:00 PM EDT Telemedicine Psychiatry, [facility] [address] [place] [address] Filemon Medina CRNP [address] [place] [address] 08/04/2023 10:00 AM EDT Office Visit Otolaryngology [facility] [address] [place] [address] Pat Umaña MD [address] [place] [address] 08/18/2023 10:45 AM EDT Office Visit Otolaryngology [facility] [address] [place] [address] Pat Umaña MD [address] [place] [address] 08/29/2023 2:00 PM EDT Office Visit Pharmacy, [facility] 132 [facility] [place] [address] [facility] 132 [facility] [place] [address] 09/21/2023 2:00 PM EDT Office Visit Nephrology, [facility] [address] Juan Tovar MD [address] [facility] [place] [address] 10/31/2023 2:20 PM EDT Office Visit Sleep Disorders Ctr [facility] 132 [facility] [place] [id number] Sofia Romo DO 132 [facility] [place] [address] 12/28/2023 3:20 PM EDT Office Visit Family Practice [facility] 132 [facility] [place] [address] Ghada Salazar MD 132 [facility] [place] [address] Scheduled Procedures Name Priority Associated Diagnoses Date/Ti [...] filedocumented as of this encounter Care Teams Gemologist Relationship Specialty Start Date End Date Ghada Salazar MD [address] [place] [address] PCP - General Internal Medicine 04/04/22 documented as of this encounter
--- OUTSIDE RECORDS SUMMARY | 2023-09-09 23:42 | External Medical Summary | Summary of Care ---
Author Name Unknown Organization [facility] Address [address] [place] [address] Phone [phone] Care Team Providers Care Waiter/Waitress Cafeteria Name Role Phone Ghada Salazar MD Primary Care Provider Reason for Visit * Reason Comments Follow Up Encounter Details Date Type Department Care Team (Late st Contact Info) Description 06/30/2023 11:30 AM EDT Office [facility] [place] [address] Pat Umaña MD [address] [place] [address] Chronic sphenoidal sinusitis* Allergies No known active allergiesdocumented as of this encounter (statuses as of 06/30/2023) Medications Medication Sig Dispensed Refills Start Date [...] 16 UnitsSubcutaneous AC, Reported on 08/29/2022 Funmi Max SoloStar 300 UNIT/ML Subcutaneous Solution Pen-injector [...] 05/29/2023 Active Additional Information Patient taking differently:2 [place] Each Nostril Daily(AM),Indications: as needed, Reported on 06/02/2023 FLUoxetine HCl 20 MG Oral Capsule (PROzac) Take 1 Capsule by mouth in the morning. 90 Capsule 1 06/01/2023 Active FLUoxetine HCl 10 MG Oral Capsule (PROzac) Take 1 Capsule by mouth in the morning. Take with 20mg capsule for total daily dose of 10mg. 90 Capsule 1 06/01/2023 Active Assure ID Duo Pro Pen [place] 31G X 5 MM (Insulin Pen Needle) [...] sinus surgery. 48 Tablet 0 06/30/2023 Active documented as of this encounter (statuses as of 06/30/2023) Active Problems Problem Noted Date Diagnosed Date [...] as of this encounter (statuses as of 06/30/2023) Resolved Problems Problem Noted Date Diagnosed Date Resolved Date Stage 3b chronic kidney disease (CKD) 02/09/2022 05/20/2022 Diabetic retinopathy associa nasra with type 2 diabetes mellitus 02/09/2022 05/20/2022 documented as of this encounter (statuses as of 06/30/2023) Immunizations Name Administration Dates Next Due COVID-19 [...] Pressure - - Pulse - - Temperature 37 C (98.6 F) 06/30/2023 12:06 PM EDT Respiratory Rate - - Oxygen Saturation - - Inhaled Oxygen Concentration - - Weight 103.9 kg (229 lb) 06/30/2023 12:06 PM EDT Height 154.9 cm (5' 0.98") 06/30/2023 12:06 PM E DT Body Mass Index 43.29 06/30/2023 12:06 PM EDT documented in this encounter Progress Notes * Pat Umaña MD - 06/30/2023 11:30 AM EDT 06/30/2023 There are no exam notes on file for this visit. HISTORY OF PRESENT ILLNESS This 72 year old female is seen at the request of Ghada Salazar MD for the initial evaluation ofright sphenoid sinus disease on MRI of brain. Initial appointment was made due to double vision and vertigo. Vertigo resolved with Bina maneuver. She is been seen by Neurology. She would MRI of the brain which showed incidentally right sphenoidsinusitis. She is not been treated with antibiotics and no follow-up CT. Patient does report for 1+ year purulent postnasal drip and nasal congestion. She does have frequent throat clearing and cough. She denies headache or facial pain. Past Medical History: Diagnosis Date Dental disease Diabetic retinopathy associated with type 2 diabetes mellitus ([facility]) 02/09/2022 Dizziness Dyslipidemia, goal LDL below 100 02/09/2022 Fatigue Obesity Severe episode of recurrent major depressive disorder ([facility]) 02/09/2022 Sleep apnea Stage 3b chronic kidney disease (CKD) ([facility]) 02/09/2022 Type 2 diabetes mellitus with hemoglobin A1c goal of less than 7.0% ([facility]) 02/09/2022 Vitamin D deficiency 02/09/2022 Past Surgical History: Procedure Laterality Date EGD, FLEXIBLE, DIAGNOSTIC N/A 06/07/2023 ESOPHAGOGASTRODUODENOSCOPY (EGD), FLEXIBLE, TRANSORAL, DIAGNOSTIC performed by Harry Pandey MDat ENDOSCOPY [facility] Medications Current Outpatient Medications Medication Sig Dispense Refill predniSONE 10 MG Oral Tablet (Deltasone) Take 6 tab daily x 3 days, then 4 tab daily x 3 days, 3 tab daily x 3 days, 2 tab daily x 3 days, then 1 tab daily x 3 days.Start 4 days prior to your sinus surgery. 48 Tablet 0 Aspirin EC 81 MG Oral Tablet Delayed Release Take 1 Tablet by mouth in the morning. B-12 500 MCG Oral Tablet Take by mouth . D3 5000 125 MCG (5000 UT) Oral Capsule (Cholecalciferol) Take 1 Capsule by mouth in the morning. Acetaminophen 325 MG Oral Tablet Take 1 Tablet by mouth every 6 hours as needed for Pain, Moderate. Insulin Lispro (1 Unit Dial) 100 UNIT/ML Subcutaneous Solution Pen-injector (HumaLOG KwikPen) Inject 12 Units under the skin in the morning and 12 Units at noon and 12 Units in the evening. Inject before meals. (Patient taking differently: Inject 16 Units under the skin in the morning and 16 Units at noon and 16 Units in the evening. Inject before meals.) 15 mL 3 Toujeo Max SoloStar 300 UNIT/ML Subcutaneous Solution [...] Capsule 1 Assure ID Duo Pro Pen [place] 31G X 5 MM (Insulin Pen Needle) [...] DAY IN THE MORNING 90 Tablet 1 No current facility-administered medications for this visit. Allergies Review of patient's allergies indicates: No Known Allergies Family History Family History Problem Relation Age of Onset Other (Cerebral Hemorrhage) Mother Diabetes Mother Hypertension Mother Stroke Mother Other (AAA) Father Breast Cancer Daughter 43 Social History Social History Tobacco Use Smoking status: Never Smokeless tobacco: Never Substance Use Topics Alcohol use: Not Currently Comment: rarely Vaping/E-Cigarette Use Vaping/E-Cigarette Use Never User Vaping/E-Cigarette Substances Vaping/E-Cigarette Devices REVIEW OF SYSTEMS Negative for constitutional, heart, lung, liver, kidney, digestive, hematologic, neurologic, rheumatologic, or endocrine complaints except as per history of present illness and past medical history. PHYSICAL EXAMINATION: There were no vitals taken for this visit. Physical Examination: General: this is a healthy appearing female who appears her stated age. The patient is alert and appropriately verbally conversant without hoarseness. Nose: Septum nonobstructing, turbinates normal, no masses, polyps, or mucopus. Oral Cavity: Examination of the oral cavity revealed no mass lesions nor infection. The palate was noted to be intact without evidence of clefting. The tongue exhibited normal mobility. Mucosa was moist without lesion. The lips were free of lesion. Gums were free of inflammation. Dentition: Unremarkable Oropharynx: The oral pharynx was free of mass lesion or mucosal abnormality. The palate was noted to be without lesions. The uvula was normal appearing. The tonsils were unremarkable Ears: Examination of the ears revealed that the auricles were normally formed with no lesions. The external auditory canals were cleaned of any obstructing cerumen. The tympanic membranes were intactand freely mobile to pneumatoscopy without perforation or significant retraction pockets. Neck: Visualization and palpation of the neck revealed no mass lesions, no thyromegaly or thyroid masses. No skin lesions or inflammatory processes were detected. The cervical musculature was normal to palpation. Lymphatics (cervical): There were no palpable lymph nodes in the posterior triangle, submandibular triangle, jugulodigastric region, or central neck Encounter Diagnoses Name Primary? Chronic sphenoidal sinusitis Yes Plan: Surgeyr scheduled for 07/17 at [facility]. Informed consent obtained. Told patient ot talk to her PCP as thesteroid for pre-op can mess with her blood sugars Last visit: Reviewing her health history I think she may actually be a candidate for surgical Center where we would be able to do her surgery sooner. Will have the nurses send a message to our anesthesiologist to confirm but in the meantime offer her a date. Patient is hesitant about proceeding with the surgery she did just start using her CPAP. She would like to wait till April if possible for surgery. Since she is not having any symptoms I think thatis okay but she knows definitely if she starts having any she needs to let me know and we would move up her surgery. Surgery would include FESS with extradural computer navigation, right inferior turbinate out-fracture, right total ethmoidectomy, right sphenoidotomy with tissue removal. Patient is all set up for functional endoscopic sinus surgery with extradural computer navigation.Risks and benefits of the procedure were outlined but not limited to bleeding, infection, less than1% chance of blindness, spinal fluid leak, anosmia, and no improvement in symptoms. Patient understands the importance of restarting her rinses doing at least 4 rinses per day postoperatively. Patient also understands no travel for 2 weeks following the procedure and no heavy lifting for 2 weeks. Patient also understands that immediately postoperatively they will still have the feeling of nasal obstruction giving the placement of dissolvable packing. Informed consent was obtained EXAM CT SINUS IMAGE GUIDED WO CONTRAST01/12/2023 2:40 pm HISTORY f/u of right sphenoid sinusitis on MRI TECHNIQUE CT images were acquired through the paranasal sinuses and coronal and sagittal reformats were generated. COMPARISON MRI September 22, 2022. FINDINGS There is near complete opacification of the sphenoid sinus on the right including areas of high density material within the sinus likely reflecting dystrophic calcification. The remaining paranasal sinuses are clear. The horton of the right sphenoid sinus are somewhat thickened and sclerotic suggesting chronic inflammation and the right sphenoethmoidal recess is occluded. The ostiomeatal units arepatent. The frontal recesses and left sphenoethmoidal recess are clear. There is posterior left nasal septal spurring and anteriorly there is mild rightward nasal septal deviation. A sphenoid sinus septum inserts medial to the right carotid canal. The cribriform fossa are symmetric. The mastoid aircells and middle ear cavities are clear. The intracranial compartment and orbits are unremarkable in appearance. IMPRESSION IMPRESSION Opacification of the right sphenoid sinus with high density material including areas of dystrophic calcification. Findings may reflect chronically inspissated secretions, although chronic fungal disease could appear similar. The right sphenoethmoidal recess is occluded. Last visit:Findings of examination and recommendations were discussed with the patient and her daughter. She will be treated with Augmentin 1 tab twice daily to take with food for [address] scan ofsinuses will be ordered following completion of antibiotic. She will be contacted results and further recommendations I spent a total of 40-54 minutes (exact time 40 mins) on the date of service in preparation, delivery, and documentation of the care provided to Tasha Sauer excluding any time spent in the performance of separately billed services. Pat Umaña MD [facility] Otolaryngology - Head and Neck Surgery [place], [place] 06/30/2023 11:42 AM documented in this encounter Nursing Notes * Gladys Horton LPN - 06/30/2023 12:07 PM EDT Pt presents today for a pre op visit due to having sinus surgery in 2 wks. documented in this encounter Plan of Treatment Upcoming Encounters Date Type Department Care Team (Latest Contact Info) Description 07/18/2023 11:35 AM EDT Hospital Encounter OR [facility], Operating Room, [facility] - 4th Floor [address] [place] [address] Pat Umaña MD [address] [place] [address] 07/18/2023 11:35 AM EDT - 07/18/2023 1:40 PM EDT Surgery OR [facility], Operating Room, [facility] - 4th Floor [facility] [address] Pat Umaña MD [address] [place] [address] STEREOTACTIC CRANIAL EXTRADURAL NAVIGATION 07/25/2023 1:30 PM EDT Office Visit Otolaryngology [facility] [address] [place] [address] Pat Umaña MD [address] [place] [address] 07/27/2023 2:00 PM EDT Telemedicine Psychiatry, [facility] 132 [facility] [place] [address] Filemon Medina CRNP [address] [place] [address] 08/04/2023 10:00 AM EDT Office Visit Otolaryngology [facility] 132 [facility] [place] [address] Pat Umaña MD [address] [place] [address] 08/18/2023 10:45 AM EDT Office Visit Otolaryngology [facility] 132 [facility] [place] [address] Pat Umaña MD 132 [facility] [place] [address] 08/29/2023 2:00 PM EDT Office Visit Pharmacy, [facility] 132 [facility] [place] [address] [facility] 132 [facility] [place] [address] 09/21/2023 2:00 PM EDT Office Visit Nephrology, [facility] [address] [place] [address] Juan Tovar MD [address] [place] [address] 10/31/2023 2:20 PM EDT Office Visit Sleep Disorders Ctr [facility] 132 [facility] [place] [phone] Sofia Romo, [address] [place] [address] 12/28/2023 3:20 PM EDT Office Visit Family [facility] [address] [place] [address] Ghada Salazar MD [address] [place] [address] Scheduled Procedures Name Priority Associated Diagnoses Date/Ti [...] 06/14/2023, 06/0 09/2022, 05/20/2022, Additional history exists Phosphate 12/30/2023 12/29/2022, 060 [...] Visit Diagnoses Diagnosis Chronic sphenoidal sinusitis- Primary Chronic sphenoidal sinusitis documented in this encounter Care Teams Waiter/Waitress Cafeteria Relationship Specialty Start Date End Date Ghada Salazar MD [address] [place] [address] [place] [address] PCP - General Internal Medicine 04/04/22 documented as of this encounter
--- OUTSIDE RECORDS SUMMARY | 2023-09-09 23:42 | External Medical Summary ---
Author Name Unknown Address Unknown Organization [id number]:[facility] [place] [facility] - [address] [place] [address] Laboratory Report Ordering Provider Test Date Status SUZANNE COLLAZO 06/14/2023 09:52:21 Final Observation Date Value Abnormality Reference (Units ) Status BUN 06/14/2023 09:52:21 27 Above high normal 6-20 (mg/dL) Final Creatinine 06/14/2023 09:52:21 2.1 Above high normal 0.5-1.0 (mg/dL) Final Glomerular filtration rate/1.73 sq M.predicted [Volume Rate/Area] in Serum, Plasma or Blood by Creatinine-based formula (CKD-EPI) 06/14/2023 09:52:21 24 Below low normal >=60 (mL/min) Final eGFR is calculated based on the CKD-EPI 2020 equation SODIUM 06/14/2023 09:52:21 141 135-146 (m mol/L) Final Potassium 06/14/2023 09:52:21 4.3 3.5-5.1 (m mol/L) Final Cl 06/14/2023 09:52:21 103 98-107 (mm ol/L) Final CO2 06/14/2023 09:52:21 25 22-32 (mmo l/L) Final Anion gap 06/14/2023 09:52:21 13 7-15 (mmol /L) Final Glucose 06/14/2023 09:52:21 152 Above high normal 70 -120 (mg/dL) Final Calcium 06/14/2023 09:52:21 9.7 8.4-10.2 ( mg/dL) Final Performing Location [facility] [place] [facility] 0 - [address] [place] [address]
--- OUTSIDE RECORDS SUMMARY | 2023-09-09 23:42 | External Medical Summary ---
Author Name Unknown Address Unknown Organization : Laboratory Report Ordering Provider Test Date Status VENANCIO COURTNEY 06/07/2023 12:20:50 Final Observation Date Value Abnormality Reference (Units ) Status Glucose Point of Care 06/07/2023 12:20:50 154 Above high normal 70-120 (mg/dL) Final Performing Location
--- OUTSIDE RECORDS SUMMARY | 2023-09-09 23:42 | External Medical Summary ---
Author Name Unknown Address Unknown Organization [id number]:[facility] - [address] [facility] [address] Laboratory Report Ordering Provider Test Date Status SUZANNE COLLAZO 06/14/2023 09:52:21 Final Observation Date Value Abnormality Reference (Units ) Status Triglyceride 06/14/2023 09:52:21 176 Above high normal <=174 (mg/dL) Final Triglyceride Reference Range s (mg/dL):
<150 Acceptable
150-174 Borderline high
175-499 High
>=500 Very high Cholesterol 06/14/2023 09:52:21 172 <200 (mg /dL) Final Total Cholesterol Reference Ranges (mg/dL):
<200 Desirable
200-239 Borderline high
>=240 High HDL 06/14/2023 09:52:21 53 >49 (mg/dL ) Final HDL Cholesterol Reference Ra nges (mg/dL):
>=60 High (Desirable)
<50 Low (Undesirable) For Females
<40 Low (Undesirable) For Males NON-HDL CHOLESTEROL 06/14/2023 09:52:21 119 <=159 (mg/dL) Final Non-HDL Cholesterol Referenc e Range (mg/dL):
<100 Target level for high risk ASCVD patient
<130 Optimal for general population
130-159 Near optimal for general population
160-189 Borderline High
190-219 High
>=220 Very High LDL, (calculated) 06/14/2023 09:52:21 84 <= 129 (mg/dL) Final LDL Cholesterol Reference Ra nges (mg/dL):
<70 Target level for high risk ASCVD patient
<100 Optimal for general population
100-129 Near optimal for general population
130-159 Borderline high
160-189 High
>=190 Very high Performing Location [facility] - [address] [facility] [address]
--- OUTSIDE RECORDS SUMMARY | 2023-09-09 23:42 | External Medical Summary | Summary of Care ---
Author Name Unknown Organization [facility] Address [address] [place] [address] Phone [phone] Care Team Providers Care Roof Bolter Helper Name Role Phone Ghada Salazar MD Primary Care Provider Reason for Visit * Reason Comments Follow Up Encounter Details Date Type Department Care Team (Late st Contact Info) Description 06/30/2023 11:30 AM EDT Office Visit [facility] [place] [address] Pat Umaña MD [address] [place] [address] Chronic sphenoidal sinusitis* Allergies No known active allergiesdocumented as of this encounter (statuses as of 06/30/2023) Medications Medication Sig Dispensed Refills Start Date End Date Status Aspirin EC 81 MG Oral Tablet Delayed ReleaseIndication s:Type 2 diabetes mellitus with hemoglobin A1c goal of less than 7.0% ([facility]) Take 1 Tablet by mouth [...] 05/29/2023 Active Additional Information Patient taking differently:2 [place] Each Nostril Daily(AM),Indications: as needed, Reported on 06/02/2023 FLUoxetine HCl 20 MG Oral Capsule (PROzac) Take 1 Capsule by mouth in the morning. 90 Capsule 1 06/01/2023 Active FLUoxetine HCl 10 MG Oral Capsule (PROzac) Take 1 Capsule by mouth in the morning. Take with 20mg capsule for total daily dose of 10mg. 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 ([facility]) 02/09/2022 Dizziness Dyslipidemia, goal LDL below 100 02/09/2022 Fatigue Obesity Severe episode of recurrent major depressive disorder ([facility]) 02/09/2022 Sleep apnea Stage 3b chronic kidney disease (CKD) ([facility]) 02/09/2022 Type 2 diabetes mellitus with hemoglobin A1c goal of less than 7.0% ([facility]) 02/09/2022 Vitamin D deficiency 02/09/2022 Past Surgical History: Procedure Laterality Date EGD, FLEXIBLE, DIAGNOSTIC N/A 06/07/2023 ESOPHAGOGASTRODUODENOSCOPY (EGD), FLEXIBLE, TRANSORAL, DIAGNOSTIC performed by Harry Pandey MDat [facility] Medications Current Outpatient Medications Medication Sig Dispense [...] Capsule 1 Assure ID Duo Pro Pen [place] 31G X 5 MM (Insulin Pen Needle) [...] Yes Plan: Surgeyr scheduled for 07/17 at [facility]. Informed consent obtained. Told patient ot talk [...] functional endoscopic sinus surgery with extradural computer navigation. Risks and benefits of the procedure were outlined but not limited to bleeding, infection, less than 1% chance of blindness, spinal fluid leak, anosmia, [...] of separately billed services. Pat Umaña MD [facility] Otolaryngology - Head and Neck [place], [place] 06/30/2023 11:42 AM documented in this encounter Nursing Notes * Gladys Horton LPN - 06/30/2023 12:07 PM EDT Pt presents today for a pre op visit due to having sinus surgery in 2 wks. documented in this encounter Plan of Treatment Upcoming Encounters Date Type Department Care Team (Latest Contact Info) Description 07/18/2023 11:35 AM EDT Hospital Encounter OR GL, Operating Room, [facility] - 4th Floor [address] [place] [address] Pat Umaña MD [address] [address] 07/18/2023 11:35 AM EDT - 07/18/2023 1:40 PM EDT Surgery OR [facility], Operating Room, [facility] - 4th Floor [address] [place] [address] Pat Umaña MD [address] [place] [address] STEREOTACTIC CRANIAL EXTRADURAL NAVIGATION 07/27/2023 2:00 PM EDT Telemedicine Psychiatry, [facility] [address] [place] [address] Filemon Medina CRNP [address] [place] [address] 08/29/2023 2:00 PM EDT Office Visit Pharmacy, [facility] [address] [place] [address] [facility] [address] [place] [address] 09/21/2023 2:00 PM EDT Office Visit Nephrology, [facility] [address] [place] [address] Juan Tovar MD [address] [place] [address] 10/31/2023 2:20 PM EDT Office Visit Sleep Disorders Ctr [facility] [address] [place] [phone] Sofia Romo DO [address] [place] [address] 12/28/2023 3:20 PM EDT Office Visit Family Practice [facility] [address] [place] [address] Ghada Salazar MD [address] [place] [address] Scheduled Procedures Name Priority Associated Diagnoses Date/Ti ga STEREOTACTIC CRANIAL EXTRADURAL NAVIGATION Chronic sphenoidal sinusitis [...] Exam 03/02/2024 03/02/2023, 02/10/2022 Mammogram 03/29/2024 03/29/2023, 120 05/2021, 08/28/2013 Lipid Panel 06/14/2028 06/14/2023, 020 06/2022, [...] sinusitis documented in this encounter Care Teams Roof Bolter Helper Relationship Specialty Start Date End Date Ghada Salazar MD [address] [place] [address] PCP - General Internal Medicine 04/04/22 documented as of this encounter
--- OUTSIDE RECORDS SUMMARY | 2023-09-09 23:42 | External Medical Summary | Summary of Care ---
Author Name Unknown Organization [facility] Address [address] [place] [facility] [place] [place] [address] Phone [phone] Care Team Providers Care Channeling Machine Runner Name Role Phone Ghada Salazar MD Primary Care Provider Reason for Visit * Reason Onset Date Comments Medication Refill 06/27/2023 Encounter Details Date Type Department Care Team (Late st Contact Info) Description 06/27/2023 Telephone Family Practice [facility] [address] [place] [id number] Ghada Salazar MD [address] [place] [address] Medication Refill Allergies No known active allergiesdocumented as of this encounter (statuses as of 06/29/2023) Medications Medication Sig Dispensed Refills Start Date End Date Status Aspirin EC 81 MG Oral Tablet Delayed ReleaseIndication s:Type 2 diabetes mellitus with hemoglobin A1c goal of less than 7.0% ([facility]) Take 1 Tablet by mouth in [...] 05/29/2023 Active Additional Information Patient taking differently:2 [place] Each Nostril Daily(AM),Indications: as needed, Reported on 06/02/2023 FLUoxetine HCl 20 MG Oral Capsule (PROzac) Take 1 Capsule by mouth in the morning. 90 Capsule 1 06/01/2023 Active FLUoxetine HCl 10 MG Oral Capsule (PROzac) Take 1 Capsule by mouth in the morning. Take with 20mg capsule for total daily dose of 10mg. 90 Capsule 1 06/01/2023 Active Assure ID Duo Pro Pen [place] 31G X 5 MM (Insulin Pen Needle) [...] mRNA, LNP-s, No Pre serve, 2-Dose Series ([employer]) 02/01/2021,07/09/2020,06/16/2020 COVID-19, LNP-s, No Preserve , Perfecto-sucrose, Ages 12+ ([employer]) 11/01/2021 Covid-19, Mrna, Lnp-s, Pf, B ivalent, 30 Mcg, IM, 12 yrs and above ([employer]) 10/06/2022,01/06/2022 HEP A - Hepatitis A (Adult [...] Telephone Encounter - Brittany Ibrahim RPh - 06/29/2023 9:26 AM EDT Spoke to [facility], they are unable to order any pen needles other than the BD pen needles. BD pen needles ordered. Patient informed via Kudoala message. Brittany Ibrahim, Pharm D, BCACP Clinical Pharmacist 06/29/2023, 9:27 AM * Telephone Encounter - Olga Hines OSA - 06/27/2023 9:06 AM EDT Alternative was requested for medication Assure ID the pharmacy is not able to get this clay machine operator . [facility] Pharmacy documented in this encounter Plan of Treatment Upcoming Encounters Date Type Department Care Team (Latest Contact Info) Description 06/30/2023 11:30 AM EDT Office Visit Otolaryngology [facility] [address] [place] [address] Pat Umaña MD [address] [place] [address] 07/18/2023 11:35 AM EDT Hospital Encounter OR [facility], Operating Room, [facility] - 4th Floor [address] [place] [address] Pat Umaña MD [address] [place] [address] 07/18/2023 11:35 AM EDT - 07/18/2023 1:40 PM EDT Surgery OR [facility], Operating Room, [facility] - 4th Floor [address] [place] [address] Pat Umaña MD [address] [place] [address] STEREOTACTIC CRANIAL EXTRADURAL NAVIGATION 07/27/2023 2:00 PM EDT Telemedicine Psychiatry, [facility] [address] [place] [address] Filemon Medina CRNP [address] [place] [address] 08/29/2023 2:00 PM EDT Office Visit Pharmacy, [facility] [address] [place] [address] [facility] [address] [place] [address] 09/21/2023 2:00 PM EDT Office Visit Nephrology, [facility] [address] [place] [address] Juan Tovar MD [address] [facility] [place] [address] 10/31/2023 2:20 PM EDT Office Visit Sleep Disorders Ctr [facility] [address] [place] [phone] Sofia Romo DO [address] [place] [address] 12/28/2023 3:20 PM EDT Office Visit Family Practice [facility] [address] [place] [address] Ghada Salazar MD [address] [place] [address] Scheduled Procedures Name Priority Associated Diagnoses Date/Ti [...] filedocumented as of this encounter Care Teams Channeling Machine Runner Relationship Specialty Start Date End Date Ghada Salazar MD [address] [place] [address] PCP - General Internal Medicine 04/04/22 documented as of this encounter
--- OUTSIDE RECORDS SUMMARY | 2023-09-09 23:42 | External Medical Summary | Summary of Care ---
Author Name Unknown Organization [facility] Address [address] [facility] [address] Phone [phone] Care Team Providers Care Dance Artist Name Role Phone Ghada Salazar MD Primary Care Provider Encounter Details Date Type Department Care Team (Late st Contact Info) Description 06/16/2023 Orders Only Pharmacy, [facility] [address] [facility] [place] [address] [facility] [address] [facility] [place] [address] Allergies No known active allergiesdocumented as of this encounter (statuses as of 06/16/2023) Medications Medication Sig Dispensed Refills Start Date End Date Status Aspirin EC 81 MG Oral Tablet Delayed ReleaseIndicatio ns:Type 2 diabetes mellitus with hemoglobin A1c goal of less than 7.0% ([facility]) Take 1 Tablet by mouth in [...] hemoglobin A1c goal of less than 7.0% ([facility]) Inject 12 Units under the skin in [...] hemoglobin A1c goal of less than 7.0% ([facility]) Inject 16 Units under the skin every morning. 15 mL 3 04/28/19 23 Active Additional Information Patient taking differently:16 Units SubcutaneousDaily(Non-Specified), Indications: in afternoon, Reported on 06/02/2023 amLODIPine Besylate 5 MG Oral Tablet (Norvasc)Indicat ions:HTN, goal below 130/80 Take 1 Tablet by mouth in the morning. 30 Tablet 06/30/19 23 Active Fish Oil 1000 MG Oral Capsule Delayed Release Take 1 Capsule by mouth in the morning. 0 Active Gabapentin 600 MG Oral Tablet (Neurontin) Take 1 Tablet by mouth in the morning and 1 Tablet before bedtime. 60 Tablet 11/24/19 23 Active Telmisartan 80 MG Oral Tablet (Micardis)Indica tions:HTN, goal below 130/80 TAKE 1 TABLET BY MOUTH EVERY DAY IN THE MORNING 90 Tablet 12/31/19 23 Active Cetirizine HCl 10 MG Oral Tablet Chewable (ZyrTEC)Indicati ons:as needed Take 1 Tablet by mouth in the morning. 0 Active oxyBUTYnin Chloride 5 MG Oral Tablet (Ditropan)Indica tions:Overactive bladder TAKE 1 TABLET BY MOUTH EVERY DAY IN THE MORNING 90 Tablet 05/05/19 24 Active Rosuvastatin Calcium 10 MG Oral Tablet (Crestor)Indicat ions:Dyslipidemi a, goal LDL below 100 Take 1 Tablet by mouth every evening. 90 Tablet 05/10/19 24 Active Fluticasone Propionate 50 MCG/ACT Nasal Suspension (Flonase)Indicat ions:Post-nasal drip Administer 2 Sprays into each nostril in the morning. 9.9 mL 3 05/29/19 24 Active Additional Information Patient taking differently:2 [place] Each Nostril Daily(AM),Indications: as needed, Reported on 06/02/2023 FLUoxetine HCl 20 MG Oral Capsule (PROzac) Take 1 Capsule by mouth in the morning. 90 Capsule 1 06/01/19 Active FLUoxetine HCl 10 MG Oral Capsule (PROzac) Take 1 Capsule by mouth in the morning. Take with 20mg capsule for total daily dose of 10mg. 90 Capsule 1 06/01/19 Active Assure ID Duo Pro Pen [place] 31G X 5 MM (Insulin Pen Needle) Use pen needles for insulin injection three times daily E11.9 300 Each 3 06/16/19 Active Pen [place] 32G X 4 MM Use as directed. Use to inject insulin up to 4 times daily E 11.9 300 Each 3 06/14/19 24 024 Discontinued documented as of this encounter (statuses as of 06/16/2023) Active Problems Problem Noted Date Diagnosed Date [...] as of this encounter (statuses as of 06/16/2023) Resolved Problems Problem Noted Date Diagnosed Date Resolved Date Stage 3b chronic kidney disease (CKD) 02/09/2022 05/20/2022 Diabetic retinopathy associa nasra with type 2 diabetes mellitus 02/09/2022 05/20/2022 documented as of this encounter (statuses as of 06/16/2023) Immunizations Name Administration Dates Next Due COVID-19 mRNA, LNP-s, No Pre serve, 2-Dose Series ([email or web address]) 02/01/2021,07/09/2020,06/16/2020 COVID-19, LNP-s, No Preserve , Perfecto-sucrose, Ages 12+ ([email or web address]) 11/01/2021 Covid-19, Mrna, Lnp-s, Pf, B ivalent, [...] 06/30/2023 11:30 AM EDT Office Visit Otolaryngology [facility] [address] [place] [address] Pat Umaña MD [address] [place] [address] 07/18/2023 11:35 AM EDT Hospital Encounter OR GL, Operating Room, [facility] - 4th Floor [address] [place] [address] [place] [address] Pat Umaña MD [address] [place] [address] 07/18/2023 11:35 AM EDT - 07/18/2023 1:40 PM EDT Surgery OR [facility], Operating Room, [facility] - 4th Floor [address] [place] [address] Pat Umaña MD [address] [place] [address] STEREOTACTIC CRANIAL EXTRADURAL NAVIGATION 07/27/2023 2:00 PM EDT Telemedicine Psychiatry, [address] [place] [address] Filemon Medina CRNP [address] [place] [address] 08/29/2023 2:00 PM EDT Office Visit Pharmacy, [facility] [address] [place] [address] [facility] [place] [address] 09/21/2023 2:00 PM EDT Office Visit Nephrology, [facility] [address] [place] [address] Juan Tovar MD [address] [place] [place] [address] 10/31/2023 2:20 PM EDT Office Visit Sleep Disorders Ctr [facility] [address] [place] [phone] Sofia Romo DO [address] [place] [address] 12/28/2023 3:20 PM EDT Office Visit Family Practice [facility] [address] [place] [address] Ghada Salazar MD [address] [place] [address] Scheduled Procedures Name Priority Associated Diagnoses Date/Ti [...] filedocumented as of this encounter Care Teams Dance Artist Relationship Specialty Start Date End Date Ghada Salazar MD [address] [place] [address] PCP - General Internal Medicine 04/04/22 documented as of this encounter
--- OUTSIDE RECORDS SUMMARY | 2023-09-09 23:43 | External Medical Summary | Summary of Care ---
Author Name Unknown Organization [facility] Address [address] [facility] [address] Phone [phone] Care Team Providers Care Teller Supervisor Name Role Phone Ghada Salazar MD Primary Care Provider Reason for Visit * Reason Onset Date Comments Appointment 05/29/2023 Upper endoscopy Encounter Details Date Type Department Care Team (Late st Contact Info) Description 05/29/2023 Telephone [facility] [address] [place] [address] José Colmenares DO [address] [facility] [place] [address] Appointment (Upper endoscopy) Allergies No known active allergiesdocumented as of this encounter (statuses as of 05/31/2023) Medications Medication Sig Dispensed Refills Start Date End Date Status Aspirin EC 81 MG Oral Tablet Delayed ReleaseIndication s:Type 2 diabetes mellitus with hemoglobin A1c goal of less than 7.0% ([facility]) Take 1 Tablet by mouth in the morning. 0 Active B-12 500 MCG Oral TabletIndications :B12 deficiency Take by mouth . 0 Acti ve D3 5000 125 MCG (5000 UT) Oral Capsule (Cholecalciferol) Indications:Vitam in D deficiency Take 1 Capsule by mouth in the morning. 0 Active Acetaminophen 325 MG Oral Tablet Take 1 Tablet by mouth every 6 hours as needed. 0 Active Insulin Lispro (1 Unit Dial) [...] 16 UnitsSubcutaneous AC, Reported on 08/29/2022 Funmi Edgar SoloStar 300 UNIT/ML Subcutaneous Solution Pen-injector (Insulin Glargine (2 Unit Dial))Indications :Type 2 diabetes mellitus with hemoglobin A1c goal of less than 7.0% ([facility]) Inject 16 Units under the skin every morning. 15 mL 3 04/28/2022 Active amLODIPine Besylate 5 MG Oral Tablet [...] by mouth in the morning. 0 Active FLUoxetine HCl 20 MG Oral Capsule (PROzac) Take 1 Capsule by mouth in the morning. 30 Capsule 2 03/21/2023 Active oxyBUTYnin Chloride 5 MG Oral Tablet [...] the morning. 9.9 mL 3 05/29/2023 Active documented as of this encounter (statuses as of 05/31/2023) Active Problems Problem Noted Date Diagnosed Date [...] as of this encounter (statuses as of 05/31/2023) Resolved Problems Problem Noted Date Diagnosed Date Resolved Date Stage 3b chronic kidney disease (CKD) 02/09/2022 05/20/2022 Diabetic retinopathy associa nasra with type 2 diabetes mellitus 02/09/2022 05/20/2022 documented as of this encounter (statuses as of 05/31/2023) Immunizations Name Administration Dates Next Due COVID-19 mRNA, LNP-s, No Pre serve, 2-Dose Series ([employer]) 02/01/2021,07/09/2020,06/16/2020 COVID-19, LNP-s, No Preserve , Perfecto-sucrose, Ages 12+ ([employer]) 11/01/2021 Covid-19, Mrna, Lnp-s, Pf, B ivalent, 30 Mcg, IM, 12 yrs and above ([employer]) 10/06/2022,01/06/2022 HEP A - Hepatitis A (Adult [...] encounter Miscellaneous Notes * Telephone Encounter - Hue Pichardo OSA - 05/31/2023 12:02 PM EST Egd 06/07 * Telephone Encounter - Seema Riggins OSA - 05/29/2023 6:05 PM EST Pt needs an upper endoscopy. She is diabetic, takes a baby aspiring daily, and has sleep apnea. Uses a C-PAP. All other screening questions were no. BMI is 40 - 79. Pt would like to be scheduled at [facility]. Please call to schedule. documented in this encounter Plan of Treatment Upcoming Encounters Date Type Department Care Team (Latest Contact Info) Description 06/01/2023 2:00 PM EST Telemedicine Psychiatry, [facility] [address] [place] [address] Filemon Medina CRNP [address] [place] [address] 06/07/2023 11:45 AM EST Hospital Encounter [facility], Endoscopy Room [facility] [address] [place] [phone] Harry Pandey MD [address] [place] [address] 06/07/2023 11:45 AM EST - 06/07/2023 12:15 PM EST Surgery [facility]O [facility], Endoscopy Room [facility] [address] [place] [phone] Harry Pandey MD [address] [place] [address] ESOPHAGOGASTRODUODENOSCOPY (EGD), FLEXIBLE, TRANSORAL, DIAGNOSTIC 06/08/2023 2:00 PM EST Office Visit Family Practice [facility] [address] [place] [address] Candida Starks CRNP [address] [place] [address] 06/14/2023 10:00 AM EST Pharmacy Pharmacy, [facility] [address] [place] [address] [facility] [address] [place] [address] 06/27/2023 1:20 PM EDT Office Visit Sleep Disorders Ctr [facility] [address] [place] [phone] Sofia Romo DO [address] [place] [address] 06/30/2023 11:30 AM EDT Office Visit Otolaryngology [facility] [address] [place] [address] Pat Umaña MD [address] [place] [address] 07/18/2023 7:30 AM EDT Hospital Encounter OR [facility], [facility], [facility] - 4[facility] Floor [address] [facility] [place] [address] Pat Umaña MD [address] [place] [address] 07/18/2023 7:30 AM EDT - 07/18/2023 9:15 AM EDT Surgery OR [facility], Operating Room, [facility] - 4th Floor [address] [place] [address] Pat Umaña MD [address] [place] [address] STEREOTACTIC CRANIAL EXTRADURAL NAVIGATION 09/12/2023 2:40 PM EDT Office Visit Nephrology, [facility] [address] [place] [address] Juan Tovar MD [address] [facility] [address] [place] [address] 12/28/2023 3:20 PM EDT Office Visit [facility] [address] [place] [address] Ghada Salazar MD [address] [place] [address] Scheduled Procedures Name Priority Associated Diagnoses Date/Ti ak ESOPHAGOGASTRODUODENOSCOPY ( EGD), FLEXIBLE, TRANSORAL, DIAGNOSTIC Dysphagia 06/07/2023 11:45 AM EST STEREOTACTIC CRANIAL EXTRADU RAL NAVIGATION Chronic sphenoidal sinusitis 07/18/2023 7:30 AM EDT FRACTURE OF NASAL TURBINATES THERAPEUTIC Chronic sphenoidal sinusitis 07/18/2023 7:30 AM EDT NASAL SINUS ENDOSCOPY WITH ETHMOIDECTOMY TOTAL Chronic sphenoidal sinusitis 07/18/2023 7:30 AM EDT NASAL SINUS ENDOSCOPY SPHENO IDOTOMY REMOVE TISSUE Chronic sphenoidal sinusitis 07/18/2023 7:30 AM EDT Health Maintenance Due Date Last Done Comments Cologuard 1994 Colonoscopy 1994 Colorectal Cancer Screening 1994 Fecal Occult Blood Test 1994 Sigmoidoscopy 1994 Hepatitis B (1 of 3 - Risk 3-dose series) 2009 COVID-19 Vaccine ( season) 2022 10/06/2022, 01/06/2022, [...] Exam 03/02/2024 03/02/2023, 02/10/2022 Mammogram 03/29/2024 03/29/2023, 12/05/2021, 08/28/2013 Lipid Panel 05/20/2027 05/20/2022, 01/25/2021 DTaP,Tdap,and [...] filedocumented as of this encounter Care Teams Teller Supervisor Relationship Specialty Start Date End Date Ghada Salazar MD [address] [place] [address] PCP - General Internal Medicine 04/04/22 documented as of this encounter
--- OUTSIDE RECORDS SUMMARY | 2023-09-09 23:43 | External Medical Summary | Summary of Care ---
Author Name Unknown Organization [facility] Address [address] [facility] [address] Phone [phone] Care Team Providers Care Compounding Pharmacy Technician Name Role Phone Ghada Salazar MD Primary Care Provider Reason for Visit * Reason Onset Date Comments Advice 05/16/2023 Encounter Details Date Type Department Care Team (Late st Contact Info) Description 05/16/2023 Telephone Family Practice [facility] [address] [place] [phone] Ghada Salazar MD [address] [place] [address] Advice Allergies No known active allergiesdocumented as of this encounter (statuses as of 05/16/2023) Medications Medication Sig Dispensed Refills Start Date End Date Status Aspirin EC 81 MG Oral Tablet Delayed ReleaseIndication s:Type 2 diabetes mellitus with hemoglobin A1c goal of less than 7.0% ([facility]) Take 1 Tablet by mouth in the [...] every evening. 90 Tablet 1 05/10/2023 Active documented as of this encounter (statuses as of 05/16/2023) Active Problems Problem Noted Date Diagnosed Date Vertigo 09/20/2022 Double vision with both eyes [...] as of this encounter (statuses as of 05/16/2023) Resolved Problems Problem Noted Date Diagnosed Date Resolved Date Stage 3b chronic kidney disease (CKD) 02/09/2022 05/20/2022 Diabetic retinopathy associa nasra with type 2 diabetes mellitus 02/09/2022 05/20/2022 documented as of this encounter (statuses as of 05/16/2023) Immunizations Name Administration Dates Next Due COVID-19 mRNA, LNP-s, No Pre serve, 2-Dose Series ([employer]) 02/01/2021,07/09/2020,06/16/2020 COVID-19, LNP-s, No Preserve , Perfecto-sucrose, Ages 12+ (Pfizer) 11/01/2021 Covid-19, Mrna, Lnp-s, Pf, B ivalent, 30 Mcg, IM, 12 yrs and above ([employer]) 10/06/2022,01/06/2022 HEP A - Hepatitis A (Adult [...] encounter Miscellaneous Notes * Telephone Encounter - Jaky Meehan LPN - 05/16/2023 3:35 PM EST See Refill TE from 05/09/23 * Telephone Encounter - Melquiades Rasmussen OSA - 05/16/2023 3:27 PM EST Reason for patient's call: Question and Concerns Caller was transferred to Jaky at the nurse line. documented in this encounter Plan of Treatment Upcoming Encounters Date Type Department Care Team (Latest Contact Info) Description 05/23/2023 12:30 PM EST Telemedicine Psychiatry, [address] [place] [address] Filemon Medina CRNP [address] [place] [address] 05/23/2023 3:00 PM EST [facility] [address] [place] [address] [facility] [address] [place] [address] 06/08/2023 2:00 PM EST Office Visit Family Practice [facility] [address] [place] [address] Candida Starks CRNP [address] [place] [address] 06/27/2023 1:20 PM EDT Office Visit Sleep Disorders Ctr [facility] [address] [place] [phone] Sofia Romo DO [address] [place] [address] 06/30/2023 11:30 AM EDT Office Visit Otolaryngology [facility] [address] [place] [address] Pat Umaña MD [address] [place] [address] 07/18/2023 7:30 AM EDT Hospital Encounter OR [facility], Operating Room, [facility] - 4th Floor [address] [facility] [place] [address] Pat Umaña MD [address] [place] [address] 07/18/2023 7:30 AM EDT - 07/18/2023 9:15 AM EDT Surgery OR [facility], Operating Room, [facility] - 4th Floor [address] [facility] [place] [address] Pat Umaña MD [address] [place] [address] STEREOTACTIC CRANIAL EXTRADURAL NAVIGATION 09/12/2023 2:40 PM EDT Office Visit Nephrology, Alber Dang [address] [place] [address] Juan Tovar MD [address] [place] [address] 12/28/2023 3:20 PM EDT Office Visit Family [facility] [address] [place] [address] Ghada Salazar MD [address] [place] [address] Scheduled Procedures Name Priority Associated Diagnoses Date/Ti sc STEREOTACTIC CRANIAL EXTRADURAL NAVIGATION Chronic sphenoidal sinusitis [...] PTH 09/23/2023 09/22/2022, 02/18/2022 Hgb 12/30/2023 12/29/2022, 11/2022, 09/20/2022, Additional history [...] filedocumented as of this encounter Care Teams Compounding Pharmacy Technician Relationship Specialty Start Date End Date Ghada Salazar MD [address] [place] [address] PCP - General Internal Medicine 04/04/22 documented as of this encounter
--- OUTSIDE RECORDS SUMMARY | 2023-09-09 23:43 | External Medical Summary | Summary of Care ---
Author Name Unknown Organization [facility] Address [address] [facility] [address] Phone [phone] Care Team Providers Care Controls Operator Molded Goods Name Role Phone Ghada Salazar MD Primary Care Provider Reason for Visit * Reason Comments eRx-Medication Refill Encounter Details Date Type Department Care Team (Late st Contact Info) Description 05/09/2023 Refill Family Practice [facility] [address] [place] [phone] Ghada Salazar MD [address] [place] [address] Dyslipidemia, goal LDL below 100 Allergies No known active allergiesdocumented as of this encounter (statuses as of 05/10/2023) Medications Medication Sig Dispensed Refills Start Date End Date Status Aspirin EC 81 MG Oral Tablet Delayed ReleaseIndicatio ns:Type 2 diabetes mellitus with hemoglobin A1c goal of less than 7.0% ([facility]) Take 1 Tablet by mouth in the [...] morning. 15 mL 3 04/28/19 23 Active amLODIPine Besylate 5 MG Oral Tablet [...] the morning. 30 Capsule 2 03/21/20 23 Active oxyBUTYnin Chloride 5 MG Oral Tablet (Ditropan)Indica tions:Overactive bladder TAKE 1 TABLET BY MOUTH EVERY DAY IN THE MORNING 90 Tablet 3 05/05/19 24 Active Rosuvastatin Calcium 10 MG Oral Tablet (Crestor)Indicat ions:Dyslipidemi a, goal LDL below 100 Take 1 Tablet by mouth every evening. 90 Tablet 1 05/10/19 24 Active Rosuvastatin Calcium 40 MG Oral Tablet (Crestor)Indicat ions:Dyslipidemi a, goal LDL below 100 Take 1 Tablet by mouth in the morning. 90 Tablet 3 05/25/19 23 024 Discontinued documented as of this encounter (statuses as of 05/10/2023) Active Problems Problem Noted Date Diagnosed Date [...] as of this encounter (statuses as of 05/10/2023) Resolved Problems Problem Noted Date Diagnosed Date Resolved Date Stage 3b chronic kidney disease (CKD) 02/09/2022 05/20/2022 Diabetic retinopathy associa nasra with type 2 diabetes mellitus 02/09/2022 05/20/2022 documented as of this encounter (statuses as of 05/10/2023) Immunizations Name Administration Dates Next Due COVID-19 mRNA, LNP-s, No Pre serve, 2-Dose Series ([employer]) 02/01/2021,07/09/2020,06/16/2020 COVID-19, LNP-s, No Preserve , Perfecto-sucrose, Ages 12+ ([employer]) 11/01/2021 Covid-19, Mrna, Lnp-s, Pf, B ivalent, 30 Mcg, IM, 12 yrs and above ([employer]) 10/06/2022,01/06/2022 HEP A - Hepatitis A (Adult [...] encounter Miscellaneous Notes * Telephone Encounter - Radha Hughes LPN - 05/10/2023 3:34 PM EST Sent my g * Telephone Encounter - Ghada Salazar MD - 05/10/2023 2:29 PM EST Please let patient know that the pharmacist correctly noted that we should be using a lower dose ofthe rosuvastatin because of her decreased kidney function. I sent in a prescription for the lower dose. We should recheck fasting lipids in a month. If they are not at goal we can add ezetimibe (Zetia). * Telephone Encounter - Filemon Pardo RP - 05/10/2023 12:48 PM ESTPending Prescriptions: Disp Refills Rosuvastatin Calcium 10 MG Oral Tablet (Cr*90 Tab*1 Sig: Take 1 Tablet by mouth every evening. * Telephone Encounter - Filemon Pardo RPh - 05/10/2023 12:18 PM EST Pharmacy requesting refills on Rosuvastatin 40mg. Serum creatinine: 2 mg/dL (H) 12/29/22 1450 Estimated creatinine clearance: 27.8 mL/min (A) Based on the most recent kidney function noted above patient a decrease in dosage or change to a statin without renal dosing adjustments (such as atorvastatin) should be considered. I have pended a dose decrease of Rosuvastatin as indicated based on the above, patient was taking atorvastatin previously per outside records, unclear reason for discontinuation. Please review and approve if appropriate for patient to decrease Rosuvastatin dosage based on the above. Thanks, Filemon Pardo Rph, Pharm D. Clinical Pharmacist Centralized Clinical Pharmacy Services (Formerly Telepharmacy)/[facility] [phone] 05/10/2023,12:36 PM documented in this encounter Plan of Treatment Upcoming Encounters Date Type Department Care Team (Latest Contact Info) Description 05/16/2023 2:00 PM EST Office Visit Psychiatry, [address] [place] [address] Filemon Medina CRNP [address] [place] [address] 05/23/2023 3:00 PM EST Pharmacy Pharmacy, [facility] [address] [place] [address] [facility] [facility] [place] [address] 06/27/2023 1:20 PM EDT Office Visit Sleep Disorders Ctr [facility] [address] [place] [phone] Sofia Romo DO [address] [place] [address] 06/30/2023 11:30 AM EDT Office Visit Otolaryngology [facility] [address] [place] [address] Pat Umaña MD [address] [place] [address] 07/18/2023 7:30 AM EDT Hospital Encounter OR [facility], Operating Room, [facility] - 4th Floor [address] [facility] [place] [address] Pat Umaña MD [address] [place] [address] 07/18/2023 7:30 AM EDT - 07/18/2023 9:15 AM EDT Surgery OR [facility], Operating Room, [facility] - 4th Floor 400 [place] [address] Pat Umaña MD [address] [place] [address] STEREOTACTIC CRANIAL EXTRADURAL NAVIGATION 09/12/2023 2:40 PM EDT Office Visit Nephrology, [facility] [address] [place] [address] Juan Tovar MD [address] [place] [address] 12/28/2023 3:20 PM EDT Office Visit Family Practice [facility] [address] [place] [address] Ghada Salazar MD [address] [place] [address] Scheduled Orders Name Type Priority Associated Diagnoses Orde r Schedule LIPID PANEL WITH DIRECT LDL IF TG IS HIGH Lab Routine Dyslipidemia, goal LDL below 100 Expected: 06/10/2023 (Approximate), Expires: 05/10/2024 Scheduled Procedures Name Priority Associated Diagnoses Date/Ti [...] as of this encounter Visit Diagnoses Diagnosis Dyslipidemia, goal LDL below 100 Other and unspecified hyperlipidemia Chronic sphenoidal sinusitis documented in this encounter Care Teams Controls Operator Molded Goods Relationship Specialty Start Date End Date Ghada Salazar MD [address] [place] [address] PCP - General Internal Medicine 04/04/22 documented as of this encounter
--- OUTSIDE RECORDS SUMMARY | 2023-09-09 23:43 | External Medical Summary | Summary of Care ---
Author Name Unknown Organization [facility] Address [address] [facility] [place] [address] Phone [phone] Care Team Providers Care Registered Occupational Therapist Name Role Phone Ghada Salazar MD Primary Care Provider Encounter Details Date Type Department Care Team (Late st Contact Info) Description 05/15/2023 Orders Only PATIENT PORTAL DO NOT DELETE THIS DEPT USED BY [place] [id number] Allergies No known active allergiesdocumented as of this encounter (statuses as of 05/15/2023) Medications Medication Sig Dispensed Refills Start Date [...] as of this encounter (statuses as of 05/15/2023) Active Problems Problem Noted Date Diagnosed Date [...] as of this encounter (statuses as of 05/15/2023) Resolved Problems Problem Noted Date Diagnosed Date Resolved Date Stage 3b chronic kidney disease (CKD) 02/09/2022 05/20/2022 Diabetic retinopathy associa nasra with type 2 diabetes mellitus 02/09/2022 05/20/2022 documented as of this encounter (statuses as of 05/15/2023) Immunizations Name Administration Dates Next Due COVID-19 mRNA, LNP-s, No Pre serve, 2-Dose Series ([employer]) 02/01/2021,07/09/2020,06/16/2020 COVID-19, LNP-s, No Preserve , Perfecto-sucrose, Ages 12+ (Pfizer) 11/01/2021 Covid-19, Mrna, Lnp-s, Pf, B ivalent, 30 Mcg, IM, 12 yrs and above ([employer]) 10/06/2022,01/06/2022 HEP A - Hepatitis A [...] Department Care Team (Latest Contact Info) Description 05/18/2023 4:20 PM EST Telemedicine Family Practice [facility] [address] [place] [address] Candida Starks CRNP [address] [place] [address] 05/23/2023 12:30 PM EST Telemedicine [facility]iat[facility], [facility] [address] [place] [address] Filemon Medina CRNP [address] [place] [address] 05/23/2023 3:00 PM EST Pharmacy Pharmacy, [facility] [address] [place] [address] [address] [facility] [address] [place] [address] 06/27/2023 1:20 PM EDT Office Visit Sleep Disorders Ctr [facility] [address] [place] [phone] Sofia Romo DO [address] [place] [address] 06/30/2023 11:30 AM EDT Office Visit Otolaryngology [facility] [address] [place] [address] Pat Umaña MD [address] [place] [address] 07/18/2023 7:30 AM EDT Hospital Encounter OR [facility], Operating Room, [facility] - 4th Floor [address] [place] [address] Pta Umaña MD [address] [place] [address] 07/18/2023 7:30 AM EDT - 07/18/2023 9:15 AM EDT Surgery OR [facility], Operating Room, [facility] - 4th Floor [address] [place] [address] Pat Umaña MD [address] [place] [address] STEREOTACTIC CRANIAL EXTRADURAL NAVIGATION 09/12/2023 2:40 PM EDT Office Visit NephrologyAlber [address] [place] [address] Juan Tovar MD [address] [place] [address] 12/28/2023 3:20 PM EDT Office Visit Family Practice [facility] [address] [place] [address] Ghada Salazar MD [address] [place] [address] Scheduled Procedures Name Priority Associated Diagnoses Date/Ti vt STEREOTACTIC CRANIAL EXTRADURAL NAVIGATION Chronic sphenoidal sinusitis 07/18/2023 7:30 AM EDT FRACTURE OF NASAL TURBINATES THERAPEUTIC Chronic sphenoidal sinusitis 07/18/2023 7:30 AM EDT NASAL SINUS ENDOSCOPY WITH ETHMOIDECTOMY TOTAL Chronic sphenoidal sinusitis 07/18/2023 7:30 AM EDT NASAL SINUS ENDOSCOPY SPHENOIDOTOMY REMOVE TISSUE Chronic sphenoidal sinusitis 07/18/2023 7:30 AM EDT Health Maintenance Due Date Last Done Comments [email or web address] 1994 Colonoscopy 1994 Colorectal Cancer Screening 1994 [...] 03/29/2024 03/29/2023, 12/0 05/2021, 08/28/2013 Lipid Panel 05/20/2027 05/20/2022, 01/25/2021 [...] filedocumented as of this encounter Care Teams Registered Occupational Therapist Relationship Specialty Start Date End Date Ghada Salazar MD [address] [place] [address] PCP - General Internal Medicine 04/04/22 documented as of this encounter
--- OUTSIDE RECORDS SUMMARY | 2023-09-09 23:43 | External Medical Summary | Summary of Care ---
Author Name Unknown Organization [facility] Address [address] [facility] [address] Phone [phone] Care Team Providers Care Sales Professional Bilingual Name Role Phone Ghada Salazar MD Primary Care Provider Reason for Visit * Reason Onset Date Comments Procedure 06/02/2023 Encounter Details Date Type Department Care Team (Late st Contact Info) Description 06/02/2023 Telephone Pharmacy Call Center [phone] [facility] [place] [phone] [place] [facility] [address] [facility] [place] [address] Procedure Allergies No known active allergiesdocumented as of this encounter (statuses as of 06/02/2023) Medications Medication Sig Dispensed Refills Start Date [...] than 7.0% ([facility]) Inject 12 Units under the skin in [...] 05/29/2023 Active Additional Information Patient taking differently:2 [place] Each Nostril Daily(AM),Indications: as needed, Reported on [...] as of this encounter (statuses as of 06/02/2023) Active Problems Problem Noted Date Diagnosed Date [...] as of this encounter (statuses as of 06/02/2023) Resolved Problems Problem Noted Date Diagnosed Date Resolved Date Stage 3b chronic kidney disease (CKD) 02/09/2022 05/20/2022 Diabetic retinopathy associa nasra with type 2 diabetes mellitus 02/09/2022 05/20/2022 documented as of this encounter (statuses as of 06/02/2023) Immunizations Name Administration Dates Next Due COVID-19 mRNA, LNP-s, No Pre serve, 2-Dose Series ([email or web address]) 02/01/2021,07/09/2020,06/16/2020 COVID-19, LNP-s, No Preserve , Perfecto-sucrose, Ages 12+ ([email or web address]) 11/01/2021 Covid-19, Mrna, Lnp-s, Pf, B ivalent, 30 Mcg, IM, 12 yrs and above ([email or web address]) 10/06/2022,01/06/2022 HEP A - Hepatitis A (Adult [...] Notes * Telephone Encounter - Roc Reynolds RPh - 06/02/2023 4:52 PM EST Patient Phone Numbers Spoke to Josselyn. Reports patient takes Toujeo and first dose of Humalog after wakening close to noon. Endoscopy is Monday morning. Patient's last dose of Humalog will be the night prior and restartToujeo and Humalog after procedure. Roc Reynolds PharmD Clinical Pharmacist [facility] 06/02/2023 4:55 PM * Telephone Encounter - Vashti Bishop PHARM Tech - 06/02/2023 10:04 AM EST Caller's name: Josselyn Preferred call back number(OFFICE NUMBER FOR ): [phone] Reason for call: Pts daughter calling to let the [facility] know pt is having endoscopy done on Wednesday 06/07. She is questioning the insulin, should she still do her toujeo. Please advise and return her call. Thank you, Vashti Bishop Contracting Manager Centralized Clinical Pharmacy Services 06/02/2023,10:05 AM documented in this encounter Plan of Treatment Upcoming Encounters Date Type Department Care Team (Latest Contact Info) Description 06/07/2023 11:45 AM EST Hospital Encounter ENDO [facility], Endoscopy Room [facility] [address] [place] [phone] Harry Pandey MD [address] [place] [address] 06/07/2023 11:45 AM EST - 06/07/2023 12:15 PM EST Surgery ENDO OSS, Endoscopy Room [facility] [address] [place] [phone] Harry Pandey MD [address] [place] [address] ESOPHAGOGASTRODUODENOSCOPY (EGD), FLEXIBLE, TRANSORAL, DIAGNOSTIC 06/08/2023 2:00 PM EST Office Visit Family Practice [facility] [address] [place] [address] Candida Starks CRNP [address] [place] [address] 06/14/2023 9:10 AM EST Laboratory Laboratory, [facility] [address] [place] [phone] [place] [address] [place] [address] 06/14/2023 10:00 AM EST Pharmacy Pharmacy, [facility] [address] [place] [address] [facility] [address] [place] [address] 06/27/2023 1:20 PM EDT Office Visit Sleep Disorders Ctr [facility] [address] [place] [phone] Sofia Romo DO [address] [place] [address] 06/30/2023 11:30 AM EDT Office Visit Otolaryngology [facility] [address] [place] [address] Pat Umaña MD [address] [place] [address] 07/18/2023 7:30 AM EDT Hospital Encounter OR [facility], Operating Room, [facility] - 4th Floor [address] [place] [address] Pat Umaña MD [address] [place] [address] 07/18/2023 7:30 AM EDT - 07/18/2023 9:15 AM EDT Surgery OR [facility], Operating Room, [facility] - 4th Floor [address] [place] [address] Pat Umaña MD [address] [place] [address] STEREOTACTIC CRANIAL EXTRADURAL NAVIGATION 07/27/2023 2:00 PM EDT Telemedicine Psychiatry, [facility] [address] [place] [address] Filemon Medina CRNP [address] [place] [address] 09/12/2023 2:40 PM EDT [facility] [address] Juan Tovar MD [address] [facility] [place] [address] 12/28/2023 3:20 PM EDT Office Visit [facility] Practice [facility] [place] [address] Ghada Salazar MD [address] [place] [address] Scheduled Procedures Name Priority Associated Diagnoses Date/Ti me ESOPHAGOGASTRODUODENOSCOPY ( EGD), FLEXIBLE, TRANSORAL, DIAGNOSTIC Dysphagia [...] filedocumented as of this encounter Care Teams Sales Professional Bilingual Relationship Specialty Start Date End Date Ghada Salazar MD [address] [place] [address] PCP - General Internal Medicine 04/04/22 documented as of this encounter
--- OUTSIDE RECORDS SUMMARY | 2023-09-09 23:43 | External Medical Summary | Summary of Care ---
Author Name Unknown Organization [facility] Address [address] [facility] [address] Phone [phone] Care Team Providers Care Clerical Assigner Name Role Phone Ghada Salazar MD Primary Care Provider Reason for Visit * Reason Comments Depression Encounter Details Date Type Department Care Team (Late st Contact Info) Description 06/01/2023 2:00 PM EST [facility] [address] [place] [address] Filemon Medina CRNP [address] [place] [address] Major depressive disorder, single episode, moderate (HCC)* Allergies No known active allergiesdocumented as of this encounter (statuses as of 06/01/2023) Medications Medication Sig Dispensed Refills Start Date [...] the evening. Inject before meals. 15 mL 04/26/19 23 Active Additional Information Patient taking differently: 16 UnitsSubcutaneous AC, Reported on 08/29/2022 Funmi Edgar SoloStar 300 UNIT/ML Subcutaneous Solution Pen-injector (Insulin Glargine (2 Unit Dial))Indication s:Type 2 diabetes mellitus with hemoglobin A1c goal of less than 7.0% (HCC) Inject 16 Units under the skin every morning. 15 mL 04/28/19 23 Active amLODIPine Besylate 5 MG Oral Tablet (Norvasc)Indicat ions:HTN, goal below 130/80 Take 1 Tablet by mouth in the morning. 30 Tablet 06/30/19 23 Active BD Pen Needle Short U/F 31G X 8 MM (Insulin Pen Needle)Indicatio ns:Type 2 diabetes mellitus with hemoglobin A1c goal of less than 7.0% ([facility]) Use to inject insulin 5 times daily 200 Each 08/04/19 23 Active Fish Oil 1000 MG [...] each nostril in the morning. 9.9 mL 05/29/19 24 Active FLUoxetine HCl 20 MG Oral [...] as of this encounter (statuses as of 06/01/2023) Active Problems Problem Noted Date Diagnosed Date [...] as of this encounter (statuses as of 06/01/2023) Resolved Problems Problem Noted Date Diagnosed Date Resolved Date Stage 3b chronic kidney disease (CKD) 02/09/2022 05/20/2022 Diabetic retinopathy associa nasra with type 2 diabetes mellitus 02/09/2022 05/20/2022 documented as of this encounter (statuses as of 06/01/2023) Immunizations Name Administration Dates Next Due COVID-19 mRNA, LNP-s, No Pre serve, 2-Dose Series ([employer]) 02/01/2021,07/09/2020,06/16/2020 COVID-19, LNP-s, No Preserve , Perfecto-sucrose, Ages 12+ ([employer]) 11/01/2021 Covid-19, Mrna, Lnp-s, Pf, B ivalent, 30 Mcg, IM, 12 yrs and above ([employer]) 10/06/2022,01/06/2022 HEP A - Hepatitis A (Adult [...] Progress Notes * Filemon Medina CRNP - 06/01/2023 1:59 PM EST Patient Location: HOME. After connecting through [employer], patient was verified with two unique identifiers. Patient (or authorized legal customer response representative) was then informed that this was a Telemedicine visit and being conducted confidentially over secure lines. Methods to assure confidentiality were taken. Patient acknowledged consent and understanding of privacy and security of the Telemedicine visit. The patient agreed to participate. PSYCHOTHERAPY & MEDICATION MANAGEMENT RETURN VISIT NOTE Joseluis Alexander [address] [facility] [place] [address] 06/01/2023 Tasha Sauer CHIEF COMPLAINT: Depression INTERVAL HISTORY: Tasha Sauer is a 72 year old female presenting today for a follow-up appointment. Pt reports feeling "alright, I've been dealing with some other health symptoms." Has upcoming endoscopy next week. "I feel like I have constriction in my throat.. it seems like stuff gets stuck therefor a while," contributing to nausea or bloated feelings at times. Worsening in the past couple months. She has been struggling with worsening dry mouth at nighttime over the past several weeks. No med changes in that time. "I've been a bad girl, I've not been using my CPAP for a while.. I had somecongestion, and I've had a phlegmy cough since the beginning of the year." Was sleeping consistently thru the nighttime when using CPAP, now wakes "a couple of times.. to go to the bathroom." No difficulty returning to sleep. Since increasing Prozac dosing, not noting any concerns but "I just feel about the same all the time." Pts daughter Josselyn present for appointment, also confirms little change since previous appt. Pt "would like to see more initiative," often spends much of her days in her chair "dozing off.. I don't really have many things to do" unless someone comes to visit her. She did have a [employer] green party which she enjoyed. Struggles gettign interest or motivation to initiate tasks she enjoys, such as genealogy. She has been talking to friends on the phone more, "I don't normally do that at all," but has been doing this moreso in the past couple weeks. She remains resistant to therapy options today. MEDICATION SIDE EFFECTS: denies OBJECTIVE DATA: COLUMBIA-SUICIDE [...] by mouth every 6 hours as needed. Insulin Lispro (1 Unit Dial) 100 UNIT/ML [...] the skin every morning. 15 mL 3 amLODIPine Besylate 5 MG Oral Tablet (Norvasc) Take 1 Tablet by mouth in the morning. 30 Tablet 11 BD Pen Needle Short U/F 31G X 8 MM (Insulin Pen Needle) Use to inject insulin 5 times daily 200 Each 3 Fish Oil 1000 MG Oral Capsule Delayed Release Take 1 Capsule by mouth in the morning. Gabapentin 600 MG Oral Tablet (Neurontin) Take 1 Tablet by mouth in the morning and 1 Tablet beforebedtime. 60 Tablet 5 Telmisartan 80 MG Oral Tablet (Micardis) TAKE 1 TABLET BY MOUTH EVERY DAY IN THE MORNING 90 Tablet 1 Cetirizine HCl 10 MG Oral Tablet Chewable (ZyrTEC) Take 1 Tablet by mouth in the morning. FLUoxetine HCl 20 MG Oral Capsule (PROzac) Take 1 Capsule by mouth in the morning. 30 Capsule 2 oxyBUTYnin Chloride 5 MG Oral Tablet (Ditropan) TAKE 1 TABLET BY MOUTH EVERY DAY IN THE MORNING 90 Tablet 3 Rosuvastatin Calcium 10 MG Oral Tablet (Crestor) Take 1 Tablet by mouth every evening. 90 Tablet 1 Fluticasone Propionate 50 MCG/ACT Nasal Suspension (Flonase) Administer 2 Sprays into each nostril in the morning. 9.9 mL 3 No current facility-administered medications for this visit. ALLERGIES: Review of patient's allergies indicates: No Known Allergies RECENT LABORATORY DATA: none collected MENTAL STATUS EXAMINATION: Appearance: age-appropriate and casually [...] single episode, moderate PLAN: - Increase Prozac 30mg daily - Encourage outpatient therapy targeting depression, [...] Drug Monitoring Program in compliance with the [facility] regulations before prescribing a controlled substance. Crisis [...] counseling/educating patient, ordering medications/tests, documenting clinical information. 18 minutes was spent on counseling including active listening, supportive therapy, self-care, and reflection Filemon Medina, MSN, MILL SUPERVISOR, PMHNP- Nurse Practitioner - Outpatient Psychiatry [facility] [place] 06/01/2023 documented in this encounter Plan of Treatment Upcoming Encounters Date Type Department Care Team (Latest Contact Info) Description 06/07/2023 11:45 AM EST Hospital Encounter ENDO [facility], Endoscopy Room [facility] [address] [place] [phone] Harry Pandey MD [address] [place] [address] 06/07/2023 11:45 AM EST - 06/07/2023 12:15 PM EST Surgery ENDO [facility], Endoscopy Room [facility] [address] [place] [phone] Harry Pnadey MD [address] [place] [address] ESOPHAGOGASTRODUODENOSCOPY (EGD), FLEXIBLE, TRANSORAL, DIAGNOSTIC 06/08/2023 2:00 PM EST Office Visit Family Practice [facility] [address] [place] [address] Candida Starks CRNP [address] [place] [address] 06/14/2023 10:00 AM EST Pharmacy Pharmacy, [facility] [address] [place] [address] [facility] [address] [place] [address] 06/27/2023 1:20 PM EDT Office Visit Sleep Disorders Ctr [facility] [address] [place] [phone] Sofia Romo DO [address] [place] [address] 06/30/2023 11:30 AM EDT Office Visit Otolaryngology [facility] [address] [place] [address] Pat Umaña MD [address] [place] [address] 07/18/2023 7:30 AM EDT Hospital Encounter OR [facility], Operating Room, [facility] - 4th Floor [address] [facility] [place] [address] Pat Umaña MD [address] [place] [address] 07/18/2023 7:30 AM EDT - 07/18/2023 9:15 AM EDT Surgery OR [facility], Operating Room, [facility] - 4th Floor [address] [facility] [place] [address] Pat Umaña MD [address] [place] [address] STEREOTACTIC CRANIAL EXTRADURAL NAVIGATION 07/27/2023 2:00 PM EDT Telemedicine Psychiatry, [facility] [address] [place] [address] Filemon Medina CRNP [address] [place] [address] 09/12/2023 2:40 PM EDT Office Visit Nephrology, [facility] [address] [place] [address] Juan Tovar MD [address] [place] [address] 12/28/2023 3:20 PM EDT Office Visit Family Practice [facility] [address] [place] [address] Ghada Salazar MD [address] [place] [address] Scheduled Procedures Name Priority Associated Diagnoses Date/Ti [...] Primary Major depressive disorder, single episode, moderate Dysphagia Dysphagia, unspecified Chronic sphenoidal sinusitis documented in this encounter Care Teams Clerical Assigner Relationship Specialty Start Date End Date Ghada Salazar MD [address] [place] [address] PCP - General Internal Medicine 04/04/22 documented as of this encounter
--- OUTSIDE RECORDS SUMMARY | 2023-09-09 23:43 | External Medical Summary | Summary of Care ---
Author Name Unknown Organization [facility] Address [address] [facility] [facility] [address] Phone [phone] Care Team Providers Care Tutoring Assistant Name Role Phone Ghaad Salazar MD Primary Care Provider Reason for Visit * Reason Onset Date Comments Health Maintenance 04/14/2023 Encounter Details Date Type Department Care Team (Late st Contact Info) Description 04/14/2023 Telephone Family Practice [facility] [address] [place] [phone] Ghada Salazar MD [address] [place] [address] Health Maintenance Allergies No known active allergiesdocumented as of this encounter (statuses as of 04/14/2023) Medications Medication Sig Dispensed Refills Start Date End Date Status Aspirin EC 81 MG Oral Tablet Delayed ReleaseIndication s:Type 2 diabetes mellitus with hemoglobin A1c goal of less than 7.0% ([facility]) Take 1 Tablet by mouth in [...] every morning. 15 mL 3 04/28/2022 Active Oxybutynin Chloride 5 MG Oral Tablet (Ditropan)Indicat ions:Overactive bladder Take 1 Tablet by mouth in the morning. 90 Tablet 3 05/20/2022 Active Rosuvastatin Calcium 40 MG Oral Tablet (Crestor)Indicati ons:Dyslipidemia, goal LDL below 100 Take 1 Tablet by mouth in the morning. 90 Tablet 3 05/25/2022 Active amLODIPine Besylate 5 MG Oral Tablet [...] the morning. 30 Capsule 2 03/21/2023 Active documented as of this encounter (statuses as of 04/14/2023) Active Problems Problem Noted Date Diagnosed Date [...] as of this encounter (statuses as of 04/14/2023) Resolved Problems Problem Noted Date Diagnosed Date Resolved Date Stage 3b chronic kidney disease (CKD) 02/09/2022 05/20/2022 Diabetic retinopathy associa nasra with type 2 diabetes mellitus 02/09/2022 05/20/2022 documented as of this encounter (statuses as of 04/14/2023) Immunizations Name Administration Dates Next Due COVID-19 mRNA, LNP-s, No Pre serve, 2-Dose Series ([employer]) 02/01/2021,07/09/2020,06/16/2020 COVID-19, LNP-s, No Preserve , Perfecto-sucrose, Ages 12+ (Pf[employer]) 11/01/2021 Covid-19, Mrna, Lnp-s, Pf, B ivalent, 30 Mcg, IM, 12 yrs and above ([employer]) 10/06/2022,01/06/2022 HEP A - Hepatitis A (Adult [...] encounter Miscellaneous Notes * Telephone Encounter - Autumn Vale LPN - 04/14/2023 9:35 AM EST Care Gaps Comprehensive Care Outreach Last Office/Telemedicine Visit: 02/23/2023 (in office), 01/23/2023 (telemedicine) Next Office Visit: 12/28/2023 Hemoglobin AIC Results: Lab Results Component Value Date/Time HEMOGLOBIN A1C - [facility] 8.3 (H) 09/20/2022 05:09 PM HEMOGLOBIN A1C - [facility] 8.8 (H) 05/20/2022 12:51 PM Reviewed Health Maintenance below: Health Maintenance Topic Date Due Colorectal Cancer Screening Never done Hepatitis B (1 of 3 - Risk 3-dose series) Never done Influenza Vaccine (FLU shot) (1) 12/16/2022 COVID-19 Vaccine ( season) 2022 Depression Screening 02/09/2023 Albumin/Creatinine Ratio 02/18/2023 HbA1c 03/22/2023 Diabetic Foot Exam 05/20/2023 GFR 06/29/2023 Colon 2015 [place] of [place]. Last time I talked to her she was going to try and get result Labs/urine already ordere Care Gap Outreach Action Taken: Outreach not indicated documented in this encounter Plan of Treatment Upcoming Encounters Date Type Department Care Team (Latest Contact Info) Description 04/25/2023 1:30 PM EST Office Visit Pharmacy, [facility] [address] [place] [address] [facility] [address] [place], [place] [address] 04/25/2023 2:30 PM EST Office Visit Psychiatry, [facility] [address] [place] [address] Filemon Medina CRNP [address] [place] [address] 06/27/2023 1:20 PM EDT Office Visit Sleep Disorders Ctr [facility] [address] [place] [phone] Sofia Romo DO [address] [place] [address] 06/30/2023 11:30 AM EDT Office Visit Otolaryngology [facility] [address] [place] [address] Pat Umaña MD [address] [place] [address] 07/18/2023 7:30 AM EDT Hospital Encounter OR [facility], Operating Room, [facility] - 4th Floor [address] [facility] [place] [address] Pat Umaña MD [address] [place] [address] 07/18/2023 7:30 AM EDT - 07/18/2023 9:15 AM EDT Surgery OR [facility], Operating Room, [facility] - 4th Floor [address] [place] [address] Pat Umaña MD [address] [place] [address] STEREOTACTIC CRANIAL EXTRADURAL NAVIGATION 09/12/2023 2:40 PM EDT Office Visit Nephrology, Alber Dang [address] [place] [address] Juan Tovar MD [address] [place] [address] 12/28/2023 3:20 PM EDT Office Visit Family Practice [facility] [address] [facility] [facility] [place] [address] Ghada [facility]azar [facility] [place] [address] 04/01/2024 1:15 PM EST Imaging Radiology [address] [facility] [place] [address] Scheduled Procedures Name Priority Associated Diagnoses Date/Ti la STEREOTACTIC CRANIAL EXTRADURAL NAVIGATION Chronic sphenoidal sinusitis [...] filedocumented as of this encounter Care Teams Tutoring Assistant Relationship Specialty Start Date End Date Ghada Salazar MD [address] [place] [address] PCP - General Internal Medicine 04/04/22 documented as of this encounter
--- OUTSIDE RECORDS SUMMARY | 2023-09-09 23:43 | External Medical Summary | Summary of Care ---
Author Name Unknown Organization [facility] Address [address] [facility] [place] [address] Phone [phone] Care Team Providers Care Patient Manager Name Role Phone Ghada Salazar MD Primary Care Provider Reason for Referral * Ancillary Services (Within 10 days (routine)) - Authorized Specialty Diagnoses / Procedures Referred By Lauren siegel Referred To Contact Gastroenterology Diagnoses Dysphagia, unspecified type José Colmenares DO [address] [place] [id number] Referral ID Status Reason Start Date Expiration Date Visits Requested Visits Authorized [id number] Authorized Ancillary Services Required 05/29/2023 999 999 Question Answer Referral Priority Within 10 days (routine) Where should this appointment be scheduled? [facility] Guidelines Dysphagia or odynophagia ADDITIONAL INFORMATION 1. Is the patient on Coumadin? No 2. Is the patient on Pradaxa? No Reason for Visit * Reason Comments dysphagia Encounter Details Date Type Department Care Team (Late st Contact Info) Description 05/29/2023 3:20 PM EST Telemedicine [facility] [address] [place] [address] José Colmenares DO [address] [place] [id number] Dysphagia, unspecified type*; CKD (chronic kidney disease) stage 4, GFR 15-29 ml/min ([facility]); Type 2 diabetes mellitus with hemoglobin A1c goal of less than 7.0% ([facility]); Body mass index (BMI) of 40.0 to 44.9 in adult (HCC); Major depressive disorder, single episode, moderate (HCC); Post-nasal drip Allergies No known active allergiesdocumented as of this encounter (statuses as of 05/29/2023) Medications Medication Sig Dispensed Refills Start Date [...] hemoglobin A1c goal of less than 7.0% ([facility]) Inject 12 Units under the skin [...] hemoglobin A1c goal of less than 7.0% ([facility]) Inject 16 Units under the skin [...] as of this encounter (statuses as of 05/29/2023) Active Problems Problem Noted Date Diagnosed Date [...] as of this encounter (statuses as of 05/29/2023) Resolved Problems Problem Noted Date Diagnosed Date Resolved Date Stage 3b chronic kidney disease (CKD) 02/09/2022 05/20/2022 Diabetic retinopathy associa nasra with type 2 diabetes mellitus 02/09/2022 05/20/2022 documented as of this encounter (statuses as of 05/29/2023) Immunizations Name Administration Dates Next Due COVID-19 [...] as of this encounter Progress Notes * Margie Neal MD - 05/29/2023 5:02 PM EST I have discussed the patient's management with the medical trainee and agree with the note. Please refer to the documented findings and plan of care. This patient's visit today consisted of an evaluation [facility]. I have reviewed the medical history, physical examination, diagnosis, andplan. Margie Neal MD documented in this encounter Plan of Treatment Upcoming Encounters Date Type Department Care Team (Latest Contact Info) Description 06/01/2023 2:00 PM EST Telemedicine Psychiatry, [facility] [address] [place] [address] Filemon Medina CRNP [address] [place] [address] 06/08/2023 2:00 PM EST Office Visit Family Practice [facility] [address] [place] [address] Candida Starks CRNP [address] [place] [address] 06/14/2023 10:00 AM EST Pharmacy Pharmacy, [facility] [address] [place] [address] [facility] [address] [place] [address] 06/27/2023 1:20 PM EDT Office Visit Sleep Disorders Ctr [facility] [address] [place] [phone] Sofia Romo DO [address] [place] [address] 06/30/2023 11:30 AM EDT Office Visit Otolaryngology [facility] [address] [place] [address] Pat Umaña MD [address] [place] [address] 07/18/2023 7:30 AM EDT Hospital Encounter OR [facility], Operating Room, [facility] - 4th Floor [address] [place] [address] Pat Umaña MD [address] [place] [address] 07/18/2023 7:30 AM EDT - 07/18/2023 9:15 AM EDT Surgery OR [facility], Operating Room, [facility] - 4th Floor [address] [place] [address] Pat Umaña MD [address] [place] [address] STEREOTACTIC CRANIAL EXTRADURAL NAVIGATION 09/12/2023 2:40 PM EDT Office Visit Nephrology, [facility] [address] [place] [address] Juan Tovar MD [address] [place] [address] 12/28/2023 3:20 PM EDT Office Visit Family [facility] [address] [place] [address] Ghada Salazar MD [address] [place] [address] Scheduled Procedures Name Priority Associated Diagnoses Date/Ti nj STEREOTACTIC CRANIAL EXTRADURAL NAVIGATION Chronic sphenoidal sinusitis 07/18/2023 7:30 AM EDT FRACTURE OF NASAL TURBINATES THERAPEUTIC Chronic sphenoidal sinusitis 07/18/2023 7:30 AM EDT NASAL SINUS ENDOSCOPY WITH ETHMOIDECTOMY TOTAL Chronic sphenoidal sinusitis 07/18/2023 7:30 AM EDT NASAL SINUS ENDOSCOPY SPHENOIDOTOMY REMOVE TISSUE Chronic sphenoidal sinusitis 07/18/2023 7:30 AM EDT Scheduled Referrals Name Type Priority Associated Diagnoses Orde r Schedule UPPER ENDOSCOPY GI REFERRAL OP Referral Within 10 days (routine) Dysphagia, unspecified type Ordered: 05/29/2023 Health Maintenance Due Date Last Done Comments [...] as of this encounter Visit Diagnoses Diagnosis Dysphagia, unspecified type- Primary CKD (chronic kidney disease) stage 4, GFR 15-29 ml/min ([facility]) Chronic kidney disease, Stage IV (severe) Type 2 diabetes mellitus with hemoglobin A1c goal of less than 7.0% ([facility]) Body mass index (BMI) of 40.0 to 44.9 in adult ([facility]) Major depressive disorder, single episode, moderate (HCC) Major depressive disorder, single episode, moderate Post-nasal drip Postnasal drip Chronic sphenoidal sinusitis documented in this encounter Care Teams Patient Manager Relationship Specialty Start Date End Date Ghada Salazar MD [address] [facility] [place] [address] PCP - General Internal Medicine 04/04/22 documented as of this encounter
--- OUTSIDE RECORDS SUMMARY | 2023-09-09 23:43 | External Medical Summary | Summary of Care ---
Author Name Unknown Organization [facility] Address [address] [facility] [address] Phone [phone] Care Team Providers Care Organizational Development Consultant Name Role Phone Ghada Salazar MD Primary Care Provider Encounter Details Date Type Department Care Team (Late st Contact Info) Description 03/31/2023 Orders Only Family Practice [facility] [address] [place] [address] Ghada Salazar MD [address] [place] [address] Encounter for screening mammogram for breast cancer* Allergies No known active allergiesdocumented as of this encounter (statuses as of 03/31/2023) Medications Medication Sig Dispensed Refills Start Date End Date Status Aspirin EC 81 MG Oral Tablet Delayed ReleaseIndication s:Type 2 diabetes mellitus with hemoglobin A1c goal of less than 7.0% ([facility]) Take 1 Tablet by mouth [...] goal of less than 7.0% ([facility]) Inject 12 Units under the skin [...] as of this encounter (statuses as of 03/31/2023) Active Problems Problem Noted Date Diagnosed Date [...] as of this encounter (statuses as of 03/31/2023) Resolved Problems Problem Noted Date Diagnosed Date Resolved Date Stage 3b chronic kidney disease (CKD) 02/09/2022 05/20/2022 Diabetic retinopathy associa nasra with type 2 diabetes mellitus 02/09/2022 05/20/2022 documented as of this encounter (statuses as of 03/31/2023) Immunizations Name Administration Dates Next Due COVID-19 mRNA, LNP-s, No Pre serve, 2-Dose Series ([employer]) 02/01/2021,07/09/2020,06/16/2020 COVID-19, LNP-s, No Preserve , Perfecto-sucrose, Ages 12+ (Pfizer) 11/01/2021 Covid-19, Mrna, Lnp-s, Pf, B ivalent, 30 Mcg, IM, 12 yrs and above ([employer]) 10/06/2022,01/06/2022 HEP A - Hepatitis A (Adult [...] as of this encounter Progress Notes * Ana Fernandez RN - 03/31/2023 10:21 AM EST Provider to address: NA Reason for Call: No chief complaint on file. Contact: Telephone Call Contact Type: Orders Outcome: myg message sent and mammo ordered for next year Face to face time spent with Patient (minutes): 0 Total Time including non face to face (minutes): 10 documented in this encounter Plan of Treatment Upcoming Encounters Date Type Department Care Team (Latest Contact Info) Description 04/25/2023 1:30 PM EST Office Visit Pharmacy, [facility] [address] [place] [address] [facility] [address] [place] [address] 04/25/2023 2:30 PM EST [facility] [address] [place] [address] Filemon Medina CRNP [address] [facility] [place] [address] 06/27/2023 1:20 PM EDT Office Visit Sleep Disorders Ctr [facility] [address] [place] [phone] Sofia Romo DO [address] [place] [address] 06/30/2023 11:30 AM EDT Office Visit Otolaryngology [facility] [address] [place] [address] Pat Umaña MD [address] [place] [address] 07/18/2023 7:30 AM EDT Hospital Encounter OR [facility], Operating Room, [facility] - 4th Floor [address] [facility] [place] [address] Pat Umaña MD [address] [place] [address] 07/18/2023 7:30 AM EDT - 07/18/2023 9:15 AM EDT Surgery OR [facility], Operating Room, [facility] - 4th Floor [address] [facility] [place] [address] Pat Umaña MD [address] [place] [address] [facility] 09/12/2023 2:40 PM EDT Office Visit Nephrology, Alber Dang [address] [place] [address] Juan Tovar MD [address] [place] [address] 12/28/2023 3:20 PM EDT Office Visit Family Practice [facility] [address] [place] [address] Ghada Salazar MD [address] [place] [address] 04/01/2024 1:15 PM EST Imaging Radiology [facility] 1st Floor, [address] [place] [address] Scheduled Orders Name Type Priority Associated Diagnoses Orde r Schedule MAMMOGRAM SCREENING ANGEL BILATERAL Medical Imaging Routine Encounter for screening mammogram for breast cancer Expected: 03/31/2024, Expires: 05/01/2024 Scheduled Procedures Name Priority Associated Diagnoses Date/Ti [...] as of this encounter Visit Diagnoses Diagnosis Encounter for screening mammogram for breast cancer- Primary Chronic sphenoidal sinusitis documented in this encounter Care Teams Organizational Development Consultant Relationship Specialty Start Date End Date Ghada Salazar MD [address] [place] [address] PCP - General Internal Medicine 04/04/22 documented as of this encounter
--- OUTSIDE RECORDS SUMMARY | 2023-09-09 23:43 | External Medical Summary | Summary of Care ---
Author Name Unknown Organization [facility] Address [address] [facility] [place] [address] Phone [phone] Care Team Providers Care Carbon Electrodes Supervisor Name Role Phone Ghada Salazar MD Primary Care Provider Reason for Referral * Ancillary Services (Within 10 days (routine)) - Authorized Specialty Diagnoses / Procedures Referred By Lauren siegel Referred To Contact Gastroenterology Diagnoses Dysphagia, unspecified type José Colmenares DO [address] [place] [id number] Referral ID Status Reason Start Date Expiration Date Visits Requested Visits Authorized [id number] Authorized Ancillary Services Required 05/29/2023 999 999 [...] Info) Description 05/29/2023 3:20 PM EST Telemedicine [facility] [address] [place] [address] José Colmenares DO [address] [place] [id number] Dysphagia, unspecified type*; CKD (chronic kidney disease) stage 4, GFR 15-29 ml/min ([facility]); Type 2 diabetes mellitus with hemoglobin A1c goal of less than 7.0% ([facility]); Body mass index (BMI) of 40.0 to [...] hemoglobin A1c goal of less than 7.0% ([facility]) Inject 12 Units under the skin in [...] hemoglobin A1c goal of less than 7.0% ([facility]) Inject 16 Units under the skin every [...] physical examination, diagnosis, andplan. Margie Neal MD * José Colmenares DO - 05/29/2023 3:28 PM EST I was in a different facility from the patient. After connecting through [employer], patient was verified with two unique identifiers. Patient (or authorized legal chain sales representative) was then informed that this was a Telemedicine visit and being conducted confidentially over secure lines. My office door was closed. No one else was in the room with me. Patient acknowledged consent and understanding ofprivacy and security of the Telemedicine visit, and gave permission to have a telemedicine presenter stay in the room in order to assist with the history and to conduct the exam as needed. I informedthe patient that I have reviewed their record in [employer] [place] and presented the opportunity for them to ask any questions regarding the visit today. The patient agreed to participate. 05/29/2023 TELEMEDICINE VISIT Name: Tasha Sauer After connecting to the patient via tablet, the patient was identified by name and date of . Patient was then informed that this was a telemedicine visit. The patient agreed to participate. Total call duration was 17 minutes. SUBJECTIVE: Tasha Sauer is a 72 year old year old female who was called for: -Productive cough since beginning of the year -Difficulty clearing chest congestion -Denies hemoptysis -Denies Hx of asthma of COPD -OTC: Mucinex; tried "a couple times" -Has not tried anything intranasal -States that she often feels mucus dripping down her throat -Educated on proper use of Flonase -Has never used a Esther pot -Stated she will try -States she has sphenoid sinus surgery scheduled July -Endorses running out of breath at the end of a long sentence -She feels a blockage; feels like a narrowing of her esophagus -Endorses food feeling as if it gets stuck -Present "several months" -Denies Hx of reflux -Lifetime non smoker -Solids and liquids are difficult to swallow -Will have a coughing fit when swallowing -Denies fevers/chills -Occasional nausea, vomiting -Declines colonoscopy scheduling -States she has had flu shot and is up to date on COVID-19 vaccine, per patient - Extensive ROS: All systems reviewed & are unremarkable except as noted in HPI & below Constitutional (fever/chills/unintentional weight loss/vision/hearing): Negative HEENT (nasal congestion/sore throat/otorrhea/otalgia/dysphagia): Negative Cardiovascular (chest pain/palpitations/fluttering/diaphoresis/dyspnea on exertion/paroxysmally nocturnal dyspnea):Negative Respiratory (cough/shortness of breath/dyspnea on exertion): see above hpi GI (nausea/vomiting/diarrhea/heart burn): see above hpi Endo (hair/cold or heat intolerance/ polyuria, polydypsia, polyphagia): see above hpi Neuro (shaking/weak/fatigue/parasthesias): see above hpi Skin (rash/easy bruising/xerosis): see above hpi Psychological (hallucinations): see above hpi (nocturia/urinary hesitancy/sexual review): see above hpi Review of patient's allergies indicates: No Known Allergies Current Outpatient Medications Medication Sig Dispense Refill Fluticasone Propionate 50 MCG/ACT Nasal Suspension (Flonase) Administer 2 Sprays into each nostril in the morning. 9.9 mL 3 Aspirin EC 81 MG Oral Tablet Delayed [...] by mouth every evening. 90 Tablet 1 No current facility-administered medications for this visit. OBJECTIVE/PHYSICAL EXAMINATION: No physical examination was performed as this was a telephone only encounter ASSESSMENT: 72 year old female presents with sxs suggestive of post-nasal drip. Patient also endorses progressive dysphagia. PLAN: Dysphagia, unspecified type (Primary) - UPPER ENDOSCOPY GI REFERRAL OP CKD (chronic kidney disease) stage 4, GFR 15-29 ml/min ([facility]) Type 2 diabetes mellitus with hemoglobin A1c goal of less than 7.0% ([facility]) Body mass index (BMI) of 40.0 to 44.9 in adult ([facility]) Major depressive disorder, single episode, moderate ([facility]) Post-nasal drip - Fluticasone Propionate 50 MCG/ACT Nasal Suspension (Flonase); Administer 2 Sprays into each nostril in the morning. -Based upon patient endorsed sxs; EGD necessary to explore cause of progressive dysphagia -Patients congestion and post-nasal drip; sent Flonase to pharmacy -Patient instructed on proper use of Flonase -Discussed AMP report and BPA's -Patient stated she has PCP appt in 10d and will address these at that time DISPOSITION: Patient will need scheduled for EGD. Order for referral sent. José Colmenares, DO This chart was completed in part utilizing Fluency Speech Voice Recognition Software. Grammatical errors, random word insertions, prounoun errors, and incomplete sentences are an occasional consequence of this system due to software limitations, ambient noise, and hardware issues. Any formal questions or concerns about the content, text, or information contained within the body of this dictation should be directly addressed to the provider for clarification. documented in this encounter Plan of Treatment Upcoming Encounters Date Type Department Care Team (Latest Contact Info) Description 06/01/2023 2:00 PM EST Telemedicine Psychiatry, [facility] [address] [place] [address] Filemon Medina CRNP [address] [place] [address] 06/08/2023 2:00 PM EST Office Visit Family Practice [facility] [address] [place] [address] Candida Starks CRNP [address] [place] [address] 06/14/2023 10:00 AM EST Pharmacy Pharmacy, [facility] [address] [place] [place] [address] [facility] [address] [place] [address] 06/27/2023 1:20 PM EDT Office Visit Sleep Disorders Ctr [facility] [address] [place] [phone] Sofia Romo DO [address] [place] [address] 06/30/2023 11:30 AM EDT Office Visit Otolaryngology [facility] [address] [place] [address] Pat Umaña MD [address] [place] [address] 07/18/2023 7:30 AM EDT Hospital Encounter OR [facility], Operating Room, [facility] - 4th Floor [address] [place] [address] Pat Umaña MD [address] [place] [address] 07/18/2023 7:30 AM EDT - 07/18/2023 9:15 AM EDT Surgery OR [facility], Operating Room, [facility] - 4th Floor [address] [place] [address] Pat Umaña MD [address] [place] [address] STEREOTACTIC CRANIAL EXTRAD[facility] NAVIGATION 09/12/2023 2:40 PM EDT Office Visit NephrologyAlber 200 [facility] [place] [address] Juan Tovar MD [address] [place] [address] 12/28/2023 3:20 PM EDT Office Visit Family Practice [facility] [address] [place] [address] Ghada Salazar MD [address] [place] [address] Scheduled Procedures Name Priority Associated Diagnoses Date/Ti mt STEREOTACTIC CRANIAL EXTRADURAL NAVIGATION Chronic sphenoidal sinusitis [...] kidney disease) stage 4, GFR 15-29 ml/min ([facility]) Chronic kidney disease, Stage IV (severe) Type 2 diabetes mellitus with hemoglobin A1c goal of less than 7.0% ([facility]) Body mass index (BMI) of 40.0 to 44.9 in adult ([facility]) Major depressive disorder, single episode, moderate ([facility]) Major depressive disorder, single episode, moderate Post-nasal drip Postnasal drip Chronic sphenoidal sinusitis documented in this encounter Care Teams Carbon Electrodes Supervisor Relationship Specialty Start Date End Date Ghada Salazar MD 132 [facility] [place] [address] PCP - General Internal Medicine 04/04/22 documented as of this encounter
--- OUTSIDE RECORDS SUMMARY | 2023-09-09 23:43 | External Medical Summary | Summary of Care ---
Author Name Unknown Organization [facility] Address [address] [facility] [place] [address] Phone [phone] Care Team Providers Care Dinkey Locomotive Engineer Name Role Phone Ghada Salazar MD Primary Care Provider Reason for Visit * Reason Comments Depression Encounter Details Date Type Department Care Team (Late st Contact Info) Description 03/21/2023 2:00 PM EST [facility] [address] [place] [address] Filemon Medina CRNP [address] [place] [address] Major depressive disorder, single episode, moderate (HCC)* Allergies No known active allergiesdocumented as of this encounter (statuses as of 03/21/2023) Medications Medication Sig Dispensed Refills Start Date [...] morning. 15 mL 3 04/28/19 23 Active Oxybutynin Chloride 5 MG Oral Tablet (Ditropan)Indica tions:Overactive bladder Take 1 Tablet by mouth in the morning. 90 Tablet 3 05/20/19 23 Active Rosuvastatin Calcium 40 MG Oral Tablet (Crestor)Indicat ions:Dyslipidemi a, goal LDL below 100 Take 1 Tablet by mouth in the morning. 90 Tablet 3 05/25/19 23 Active amLODIPine Besylate 5 MG Oral [...] morning. 30 Capsule 2 03/21/20 23 Active FLUoxetine HCl 10 MG Oral Capsule (PROzac) Take 1 Capsule by mouth in the morning. In the morning.. 90 Capsule 1 11/02/19 23 023 Discontinued documented as of this encounter (statuses as of 03/21/2023) Active Problems Problem Noted Date Diagnosed Date [...] as of this encounter (statuses as of 03/21/2023) Resolved Problems Problem Noted Date Diagnosed Date Resolved Date Stage 3b chronic kidney disease (CKD) 02/09/2022 05/20/2022 Diabetic retinopathy associa nasra with type 2 diabetes mellitus 02/09/2022 05/20/2022 documented as of this encounter (statuses as of 03/21/2023) Immunizations Name Administration Dates Next Due COVID-19 mRNA, LNP-s, No Pre serve, 2-Dose Series ([employer]) 02/01/2021,07/09/2020,06/16/2020 COVID-19, LNP-s, No Preserve , Perfecto-sucrose, Ages 12+ (Pfizer) 11/01/2021 Covid-19, Mrna, Lnp-s, Pf, B ivalent, 30 Mcg, IM, 12 yrs and above ([employer]) 10/06/2022,01/06/2022 HEP A - Hepatitis A (Adult [...] Progress Notes * Filemon Medina CRNP - 03/21/2023 2:03 PM EST Patient Location: HOME. After connecting through [employer], patient was verified with two unique identifiers. 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 Methods to assure confidentiality were taken. Patient acknowledged consent and understanding of privacy and security of the Telemedicine visit. The patient agreed to participate. PSYCHOTHERAPY & MEDICATION MANAGEMENT RETURN VISIT NOTE PsychiatryJoseluis Lane 132 [facility] [place] [address] 03/21/2023 Tasha Sauer CHIEF COMPLAINT: Depression INTERVAL HISTORY: Tasha Sauer is a 72 year old female presenting today for a follow-up appointment. Pts daughter Josselyn present for appointment. Pt had family in for Thanksgiving which was "fun." She denies any recent medication changes or medical concerns. No longer struggling with double-vision/vertigo. Pt feels she has times when she worries more about the future and wonders if her antidepressant dosing should be increased. "Feeling occasionally bad about my living situation, and seeing no end to it, sometimes brings me down a little but. But not enough to do anything about it." She recently started using a CPAP in the past month and states "I'm not fond of it." Describes use as only "sporadic" currently. Has sinus surgery scheduled July 2023 to clear a blockage. MEDICATION SIDE EFFECTS: denies OBJECTIVE DATA: COLUMBIA-SUICIDE [...] the skin every morning. 15 mL 3 Oxybutynin Chloride 5 MG Oral Tablet (Ditropan) Take 1 Tablet by mouth in the morning. 90 Tablet 3 Rosuvastatin Calcium 40 MG Oral Tablet (Crestor) Take 1 Tablet by mouth in the morning. 90 Tablet 3 amLODIPine Besylate 5 MG Oral Tablet (Norvasc) Take 1 Tablet by mouth in the morning. 30 Tablet 11 BD Pen Needle Short U/F 31G X 8 MM (Insulin Pen Needle) Use to inject insulin 5 times daily 200 Each 3 Fish Oil 1000 MG Oral Capsule Delayed Release Take 1 Capsule by mouth in the morning. FLUoxetine HCl 10 MG Oral Capsule (PROzac) Take 1 Capsule by mouth in the morning. In the morning..90 Capsule 1 Gabapentin 600 MG Oral Tablet (Neurontin) Take 1 Tablet by mouth in the morning and 1 Tablet beforebedtime. 60 Tablet 5 Telmisartan 80 MG Oral Tablet (Micardis) TAKE 1 TABLET BY MOUTH EVERY DAY IN THE MORNING 90 Tablet 1 Cetirizine HCl 10 MG Oral Tablet Chewable (ZyrTEC) Take 1 Tablet by mouth in the morning. No current facility-administered medications for this visit. ALLERGIES: Review of patient's allergies indicates: No Known Allergies RECENT LABORATORY DATA: none MENTAL STATUS EXAMINATION: Appearance: age-appropriate and casually [...] single episode, moderate PLAN: - Increase Prozac 20mg daily - Encourage outpatient therapy targeting depression, recommend CBT specifically or group therapy thru [facility]. "I'm highly resistant to the therapy avenue.. I'm not ready yet." Encourage pt take small gradual steps towards establishing a consistent daily routine, with time dedicated to socialization and connecting with others - Risks/benefits of currently prescribed psychiatric medications discussed, verbalized understanding - I have reviewed the patients controlled substance dispensing history in the Prescription Drug Monitoring Program in compliance with the [facility] regulations before prescribing a controlled substance Crisis Planning: Tasha Sauer has been provided [...] then worsen anxiety and depression. Return in 6 weeks or sooner as needed. Time Spent on Visit total: 30 minutes - including preparing to see the patient, reviewing history, performing evaluation, counseling/educating patient, ordering medications/tests, documenting clinical information. 16 minutes was spent on counseling including active listening, supportive therapy, self-care, and reflection Filemon Medina, MSN, KAUR, PMP- Nurse Practitioner - Outpatient Psychiatry [facility] - [place] 03/21/2023 documented in this encounter Plan of Treatment Upcoming Encounters Date Type Department Care Team (Latest Contact Info) Description 03/29/2023 2:15 PM EST Imaging Radiology [facility] 1st [facility] [address] [facility] [place] [address] 04/25/2023 1:30 PM EST Office Visit Pharmacy, [address] [place] [address] [facility] [address] [place] [address] 04/25/2023 2:30 PM EST Office Visit Psychiatry, [address] [place] [address] Filemon Medina CRNP 132 [facility] [place] [address] 06/27/2023 1:20 PM EDT Office Visit Sleep Disorders Ctr [facility] [address] [facility] [place] [phone] Sofia Romo DO [address] [place] [address] 06/30/2023 11:30 AM EDT Office Visit Otolaryngology [facility] [address] [place] [address] Pat Umaña MD [address] [place] [address] 07/18/2023 7:30 AM EDT Hospital Encounter OR [facility], Operating Room, [facility] - 4th Floor [address] [place] [address] Pat Umaña MD [address] [place] [address] 07/18/2023 7:30 AM EDT - 07/18/2023 9:15 AM EDT Surgery OR [facility], Operating Room, [facility] - 4th Floor [address] [place] [address] Pat Umaña MD [address] [place] [address] STEREOTACTIC CRANIAL EXTRADURAL NAVIGATION 09/12/2023 2:40 PM EDT Office Visit Nephrology, [facility] [place] [address] Juan Tovar MD [address] [place] [address] 12/28/2023 3:20 PM EDT Office Visit Family Practice [facility] [address] [place] [address] Ghada Salazar MD [address] [place] [address] Scheduled Procedures Name Priority Associated Diagnoses Date/Ti tx STEREOTACTIC CRANIAL EXTRADURAL NAVIGATION Chronic sphenoidal sinusitis [...] Screening 02/09/2023 02/09/2022 Albumin/Creatinine Ratio 02/18/2023 02/18/2022 Mammogram 03/18/2023 03/18/2022, 08/28/2013 HbA1c 03/22/2023 09/20/2022, 02/0 06/2022, 12/06/2021 Diabetic Foot Exam 05/20/2023 05/20/2022 GFR 06/29/2023 12/29/2022, 06/0 11/2022, 09/22/2022, Additional history exists PTH 09/23/2023 09/22/2022, 02/18/2022 Hgb 12/30/2023 12/29/2022, 06/0 11/2022, 09/20/2022, Additional history exists Phosphate 12/30/2023 12/29/2022, 06/0 11/2022, 02/18/2022 Nephrology Referral 01/20/2024 01/19/2023 Diabetic Eye Exam 03/02/2024 03/02/2023, 02/10/2022 Lipid Panel 05/20/2027 05/20/2022, 01/25/2021 DTaP,Tdap,and Td [...] Primary Major depressive disorder, single episode, moderate Chronic sphenoidal sinusitis documented in this encounter Care Teams Dinkey Locomotive Engineer Relationship Specialty Start Date End Date Ghada Salazar MD [address] [place] [address] PCP - General Internal Medicine 04/04/22 documented as of this encounter
--- OUTSIDE RECORDS SUMMARY | 2023-09-09 23:43 | External Medical Summary | Summary of Care ---
Author Name Unknown Organization [facility] Address [address] [facility] [facility] [address] Phone [phone] Care Team Providers Care Hearing Therapy Director Name Role Phone Ghada Salazar MD Primary Care Provider Reason for Visit * Reason Onset Date Comments Advice 06/06/2023 Encounter Details Date Type Department Care Team (Late st Contact Info) Description 06/06/[address] [facility] [address] [place] [phone] Ghada Salazar MD [address] [place] [address] Advice Allergies No known active allergiesdocumented as of this encounter (statuses as of 06/06/2023) Medications Medication Sig Dispensed Refills Start Date End Date Status Aspirin EC 81 MG Oral Tablet Delayed ReleaseIndication s:Type 2 diabetes mellitus with hemoglobin A1c goal of less than 7.0% ([facility]) Take 1 Tablet by mouth in [...] 05/29/2023 Active Additional Information Patient taking differently:2 [place] Each Nostril Daily(AM),Indications: as needed, Reported on [...] as of this encounter (statuses as of 06/06/2023) Active Problems Problem Noted Date Diagnosed Date [...] as of this encounter (statuses as of 06/06/2023) Resolved Problems Problem Noted Date Diagnosed Date Resolved Date Stage 3b chronic kidney disease (CKD) 02/09/2022 05/20/2022 Diabetic retinopathy associa nasra with type 2 diabetes mellitus 02/09/2022 05/20/2022 documented as of this encounter (statuses as of 06/06/2023) Immunizations Name Administration Dates Next Due COVID-19 mRNA, LNP-s, No Pre serve, 2-Dose Series ([employer]) 02/01/2021,07/09/2020,06/16/2020 COVID-19, LNP-s, No Preserve , Perfecto-sucrose, Ages 12+ ([employer]) 11/01/2021 Covid-19, Mrna, Lnp-s, Pf, B ivalent, [...] encounter Miscellaneous Notes * Telephone Encounter - Kerry King LPN - 06/06/2023 2:29 PM EST Daughter calling due to having a VV with Dr donovan on 05/29 for trouble swallowing and "keeping food down" She is scheduled for scope tomorrow. Daughter would like appt canceled with E rhed until resuts come back. Appt canceled no further concerns. * Telephone Encounter - Joselyn Mccracken OSA - 06/06/2023 2:25 PM EST Reason for patient's call: discuss if upcoming appointment is needed// speak with nurse Caller was transferred to [place] at the nurse line. documented in this encounter Plan of Treatment Upcoming Encounters Date Type Department Care Team (Latest Contact Info) Description 06/07/2023 11:45 AM EST Hospital Encounter ENDO [facility], Endoscopy Room [facility] [address] [place] [phone] Harry Pandey MD [address] [place] [address] 06/07/2023 11:45 AM EST - 06/07/2023 12:15 PM EST Surgery ENDO [facility], Endoscopy Room [facility] [address] [place] [phone] Harry Pandey MD [address] [place] [address] ESOPHAGOGASTRODUODENOSCOPY (EGD), FLEXIBLE, TRANSORAL, DIAGNOSTIC 06/14/2023 9:10 AM EST Laboratory Laboratory, [facility] [address] [place] [address] [place] [address] 06/14/2023 10:00 AM EST Office Visit Pharmacy, [facility] [address] [place] [address] [facility] [address] [place] [address] 06/27/2023 1:20 PM EDT Office Visit Sleep Disorders Ctr [facility] [address] [place] [phone] Sofia Romo DO [address] [place] [address] 06/30/2023 11:30 AM EDT Office Visit Otolaryngology [facility] [address] [place] [address] Pat Umaña MD [address] [place] [address] 07/18/2023 7:30 AM EDT Hospital Encounter OR [facility], Operating Room, [facility] - 4th Floor [address] [place] [address] Pat Umaña MD [address] [place] [address] 07/18/2023 7:30 AM EDT - 07/18/2023 9:15 AM EDT Surgery OR [facility], Operating Room, [facility] - 4th Floor [address] [place] [address] Pat Umaña MD [address] [place] [address] STEREOTACTIC CRANIAL EXTRADURAL NAVIGATION 07/27/2023 2:00 PM EDT Telemedicine Psychiatry, [facility] [address] [place] [address] Filemon Medina CRNP [address] [place] [address] 09/12/2023 2:40 PM EDT Office Visit Nephrology, [facility] [address] [place] [address] Juan Tovar MD [address] [place] [address] 12/28/2023 3:20 PM EDT Office Visit Family Practice [facility] [address] [place] [address] Ghada Salazar MD [address] [place] [address] Scheduled Procedures Name Priority Associated Diagnoses Date/Ti [...] filedocumented as of this encounter Care Teams Hearing Therapy Director Relationship Specialty Start Date End Date Ghada Salazar MD [address] [place] [address] PCP - General Internal Medicine 04/04/22 documented as of this encounter
--- OUTSIDE RECORDS SUMMARY | 2023-09-09 23:43 | External Medical Summary | Summary of Care ---
Author Name Unknown Organization [facility] Address [address] [facility] [address] Phone [phone] Care Team Providers Care Quality Assurance Name Role Phone Vale Salazar MD Primary Care Provider Reason for Visit * Reason Comments eRx-Medication Refill Encounter Details Date Type Department Care Team (Late st Contact Info) Description 05/09/2023 Refill Family Practice [facility] [address] [place] [phone] Vale Salazar MD [address] [place] [address] Dyslipidemia, goal LDL below 100 Allergies No known active allergiesdocumented as of this encounter (statuses as of 05/16/2023) Medications Medication Sig Dispensed Refills Start Date End Date Status Aspirin EC 81 MG Oral Tablet Delayed ReleaseIndicatio ns:Type 2 diabetes mellitus with hemoglobin A1c goal of less than 7.0% ([facility]) Take 1 Tablet by mouth in [...] mRNA, LNP-s, No Pre serve, 2-Dose Series ([employer]) 02/01/2021,07/09/2020,06/16/2020 COVID-19, LNP-s, No Preserve , Perfecto-sucrose, Ages 12+ ([employer]) 11/01/2021 Covid-19, Mrna, Lnp-s, Pf, B ivalent, 30 Mcg, IM, 12 yrs and above ([employer]) 10/06/2022,01/06/2022 HEP A - Hepatitis A (Adult [...] Encounter - Jaky Meehan LPN - 05/16/2023 3:34 PM EST Daughter Josselyn is aware and verbalizes understanding. Patient will walk in to lab at own convenience * Telephone Encounter - Filemon Pardo RPh - 05/11/2023 3:01 PM ESTSigned Prescriptions: Disp Refills Rosuvastatin Calcium 10 MG Oral Tablet (Cr*90 Tab*1 Sig: Take 1Tablet by mouth every evening.Authorizing Provider: VALE SALAZAR * Telephone Encounter - Radha Hughes LPN - 05/10/2023 3:34 PM EST Sent my merrill * Telephone Encounter - Vale Salazar MD - 05/10/2023 2:29 PM EST [...] ([employer]et[employer]). * Telephone Encounter - Filemon Pardo RPh - 05/10/2023 12:48 PM ESTPending Prescriptions: Disp [...] Clinical Pharmacist [facility] ([facility] [phone] 05/10/2023,12:36 PM documented in this encounter Plan of Treatment Upcoming Encounters Date Type Department Care Team (Latest Contact Info) Description 05/18/2023 4:20 PM EST Telemedicine Family Practice [facility] [address] [facility] [place] [address] Candida Starks CRNP [address] [place] [address] 05/23/2023 12:30 PM EST Telemedicine Psychiatry, [facility] [address] [place] [address] Filemon Medina CRNP [address] [place] [address] 05/23/2023 3:00 PM EST Pharmacy Pharmacy, [facility] [address] [facility] [place] [address] [address] [facility] [place] [address] 06/27/2023 1:20 PM EDT Office Visit Sleep Disorders Ctr [facility] [address] [facility] [place] [phone] Sofia Romo DO [address] [place] [address] 06/30/2023 11:30 AM EDT Office Visit Otolaryngology [facility] [address] [place] [address] Pat Umaña MD [address] [place] [address] 07/18/2023 7:30 AM EDT Hospital Encounter OR [facility], Operating Room, [facility] - 4th Floor [address] [place] [address] Pat Umaña MD [address] [place] [address] 07/18/2023 7:30 AM EDT - 07/18/2023 9:15 AM EDT Surgery OR [facility], Operating Room, [facility] - 4th Floor [address] [place] [address] Pat Umaña MD [address] [place] [address] STEREOTACTIC CRANIAL EXTRADURAL NAVIGATION 09/12/2023 2:40 PM EDT Office Visit Nephrology, Alber Dang [address] [facility] [place] [address] Juan Tovar MD [address] [facility] [place] [address] 12/28/2023 3:20 PM EDT Office Visit Family [facility] [address] [place] [address] Vale Salazar MD [address] [place] [address] Scheduled Orders Name Type Priority Associated Diagnoses Orde r Schedule LIPID PANEL WITH DIRECT LDL IF TG IS HIGH Lab Routine Dyslipidemia, goal LDL below 100 Expected: 06/10/2023 (Approximate), Expires: 05/10/2024 Scheduled Procedures Name Priority Associated Diagnoses Date/Ti nm STEREOTACTIC CRANIAL EXTRADURAL NAVIGATION Chronic sphenoidal sinusitis [...] sinusitis documented in this encounter Care Teams Quality Assurance Relationship Specialty Start Date End Date Vale Salazar MD [address] [place] [address] PCP - General Internal Medicine 04/04/22 documented as of this encounter
--- OUTSIDE RECORDS SUMMARY | 2023-09-09 23:43 | External Medical Summary | Summary of Care ---
Author Name Unknown Organization [facility] Address [address] [facility] [address] Phone [phone] Care Team Providers Care Automatic Lathe Setter Name Role Phone Vale Salazar MD Primary Care Provider Reason for Visit * Reason Comments eRx-Medication Refill Encounter Details Date Type Department Care Team (Late st Contact Info) Description 05/05/2023 Refill Pharmacy, [facility] [email or web address] [place] [address] Vale Salazar MD [email or web address] [place] [address] Overactive bladder Allergies No known active allergiesdocumented as of this encounter (statuses as of 05/05/2023) Medications Medication Sig Dispensed Refills Start Date End Date Status Aspirin EC 81 MG Oral Tablet Delayed ReleaseIndicatio ns:Type 2 diabetes mellitus with hemoglobin A1c goal of less than 7.0% ([facility]) Take 1 Tablet by mouth in the [...] morning. 15 mL 3 04/28/19 23 Active Rosuvastatin Calcium 40 MG Oral [...] MORNING 90 Tablet 3 05/05/19 24 Active Oxybutynin Chloride 5 MG Oral Tablet (Ditropan)Indica tions:Overactive bladder Take 1 Tablet by mouth in the morning. 90 Tablet 3 05/20/19 23 024 Discontinued documented as of this encounter (statuses as of 05/05/2023) Active Problems Problem Noted Date Diagnosed Date [...] as of this encounter (statuses as of 05/05/2023) Resolved Problems Problem Noted Date Diagnosed Date Resolved Date Stage 3b chronic kidney disease (CKD) 02/09/2022 05/20/2022 Diabetic retinopathy associa nasra with type 2 diabetes mellitus 02/09/2022 05/20/2022 documented as of this encounter (statuses as of 05/05/2023) Immunizations Name Administration Dates Next Due COVID-19 mRNA, LNP-s, No Pre serve, 2-Dose Series ([employer]) 02/01/2021,07/09/2020,06/16/2020 COVID-19, LNP-s, No Preserve , Perfecto-sucrose, Ages 12+ ([employer]) 11/01/2021 Covid-19, Mrna, Lnp-s, Pf, B ivalent, 30 Mcg, IM, 12 yrs and above ([employer]) 10/06/2022,01/06/2022 HEP A - Hepatitis A (Adult [...] encounter Miscellaneous Notes * Telephone Encounter - Vale Salazar MD - 05/05/2023 5:13 PM EST Signed Prescriptions: Disp Refills oxyBUTYnin Chloride 5 MG Oral Tablet (Ditr*90 Tab*3 Sig: TAKE 1 TABLET BY MOUTH EVERY DAY IN THE MORNING Authorizing Provider: VALE SALAZAR * Telephone Encounter - Jaky Meehan LPN - 05/05/2023 8:49 AM ESTPending Prescriptions: Disp Refills oxyBUTYnin Chloride 5 MG Oral Tablet [Phar*90 Tab*3 Sig: TAKE 1 TABLET BY MOUTH EVERY DAY IN THE MORNING * Telephone Encounter - Jaky Meehan LPN - 05/05/2023 8:49 AM EST Pending Prescriptions: Disp Refills oxyBUTYnin Chloride 5 MG Oral Tablet (Dit*90 Tab*3 Sig: TAKE 1 TABLET BY MOUTH EVERY DAY IN THE MORNING Last Visit: 01/24/2023 (in office), Visit date not found (telemedicine) Next Visit: 05/23/2023 Last date the medication was ordered: 05/20/22 Patient Active Problem List Diagnosis Code Type 2 diabetes mellitus with hemoglobin A1c goal of less than 7.0% ([facility]) E11.9 Vitamin D deficiency E55.9 Dyslipidemia, goal LDL below 100 E78.5 Severe episode of recurrent major depressive disorder ([facility]) F33.2 CKD (chronic kidney disease) stage 4, GFR 15-29 ml/min ([facility]) N18.4 Body mass index (BMI) of 40.0 to 44.9 in adult ([facility]) Z68.41 Vertigo R42 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 Nystagmus H55.00 Labs: Lab Results Component Value Date/Time CREATININE - [facility] 2.0 (H) 12/29/2022 02:50 PM CREATININE CLEARANCE - [facility] 22 (L) 09/22/2022 02:05 PM CREATININE FOR CRCL - [facility] 2 (H) 09/22/2022 02:05 PM CREATININE, 24 HOUR URINE - [facility] 0.759 (L) 09/22/2022 02:05 PM CREATININE, RANDOM URINE - [facility] 47 09/23/2022 01:35 PM CREATININE-OUTSIDE LAB 2.19 (A) 12/06/2021 12:00 AM Lab Results Component Value Date/Time POTASSIUM - [facility] 4.7 12/29/2022 02:50 PM POTASSIUM-OUTSIDE LAB 4.0 12/06/2021 12:00 AM Lab Results Component Value Date/Time TSH - [facility] 1.11 09/20/2022 05:09 PM TSH - OUTSIDE LAB 1.01 01/25/2021 12:00 AM Lab Results Component Value Date/Time LDL (CALCULATED)-OUTSIDE LAB 139 (H) 01/25/2021 12:00 AM LDL CHOLESTEROL (CALCULATED) - [facility] 118 05/20/2022 12:51 PM Lab Results Component Value Date/Time ALT - [facility] 14 09/20/2022 05:09 PM Hemoglobin AIC Results: Lab Results Component Value Date/Time HEMOGLOBIN A1C - [facility] 8.3 (H) 09/20/2022 05:09 PM HEMOGLOBIN A1C - [facility] 8.8 (H) 05/20/2022 12:51 PM documented in this encounter Plan of Treatment Upcoming Encounters Date Type Department Care Team (Latest Contact Info) Description 05/16/2023 2:00 PM EST Office Visit Psychiatry, [facility] [address] [place] [address] Filemon Medina CRNP [address] [place] [address] 05/23/2023 3:00 PM EST Pharmacy Pharmacy, [facility] [address] [place] [address] [facility] [address] [place] [address] 06/27/2023 1:20 PM EDT Office Visit Sleep Disorders Ctr [facility] [address] [place] [phone] Sofia Romo DO [address] [place] [address] 06/30/2023 11:30 AM EDT Office Visit Otolaryngology [facility] [address] [place] [address] Pat Umaña MD [address] [place] [address] 07/18/2023 7:30 AM EDT Hospital Encounter OR [facility], Operating Room, [facility] - 4th Floor [address] [place] [address] Pat Umaña MD [address] [place] [address] 07/18/2023 7:30 AM EDT - 07/18/2023 9:15 AM EDT Surgery OR [facility], Operating Room, [facility] - 4th Floor [address] [place] [address] Pat Umaña MD [address] [place] [address] STEREOTACTIC CRANIAL EXTRADURAL NAVIGATION 09/12/2023 2:40 PM EDT Office Visit Nephrology [facility] [address] [place] [address] Juan Tovar MD [address] [place] [address] 12/28/2023 3:20 PM EDT Office Visit Family Practice [facility] [address] [place] [address] Vale Salazar MD [address] [place] [address] Scheduled Procedures Name Priority Associated Diagnoses Date/Ti [...] as of this encounter Visit Diagnoses Diagnosis Overactive bladder Hypertonicity of bladder Chronic sphenoidal sinusitis documented in this encounter Care Teams Automatic Lathe Setter Relationship Specialty Start Date End Date Vale Salazar MD [address] [place] [address] PCP - General Internal Medicine 04/04/22 documented as of this encounter
[2023-09-10] MEDS: ACETAMINOPHEN 325 MG TAB PO PRN (01:33)
[2023-09-10] MEDS: MELATONIN 3 MG TAB PO PRN (01:51)
[2023-09-10 06:56] LABS: Hemoglobin 9.7 g/dl (12.0-16.0); Mean Corpuscular Hgb Conc 32.3 g/dL (32.0-36.0); Mean Corpuscular Volume 89.6 fL (80.0-100.0); Mean Platelet Volume 8.4 fL (9.4-12.4); Platelet Count 427 K/uL (130-400); RDW Standard Deviation 45.7 fL (36.4-46.3); Red Blood Count 3.35 M/uL (4.20-5.40); White Blood Count 10.41 K/ul (4.8-10.8)
[2023-09-10 07:35] LABS: Albumin Globulin Ratio 0.8 (0.9-2); Albumin Level 2.7 gm/dl (3.4-5.0); BUN Creatinine Ratio 11.6 (10-20); Bilirubin,Total 0.2 mg/dl (0.2-1.0); Calcium 8.4 mg/dl (8.6-10.3); Creatinine Clr Calc Pharmacy 18.6 ml/min; Est GFR (African American) 16.9 ml/min; Est GFR (Non-African American) 14.6 ml/min; Globulin 3.2 gm/dl (2.5-4.0); Magnesium 1.8 mg/dl (1.7-2.4); Phosphorus 3.9 mg/dl (2.5-4.9); Potassium 3.4 mmol/L (3.5-5.1); Total Protein 5.9 gm/dl (6.0-8.3)
[2023-09-10] MEDS: oxyBUTYnin chloride 5 MG TAB PO SCH (08:00)
[2023-09-10] MEDS: CYANOCOBALAMIN (B-12) 500 MCG TABLET PO SCH (08:00)
[2023-09-10] MEDS: FLUTICASONE PROPIONATE NA SPR 16 GM BTL NAE SCH (08:01)
[2023-09-10] MEDS: FLUoxetine HCL 20 MG CAP PO SCH (08:01)
[2023-09-10] MEDS: ASPIRIN 81 MG ECTAB PO SCH (08:02)
[2023-09-10] MEDS: LOSARTAN POTASSIUM 50 MG TAB PO SCH (08:02)
[2023-09-10] MEDS: CHOLECALCIFEROL 125 MCG (5,000 UNITS) TAB PO SCH (08:02)
--- NOTE | 2023-09-10 12:09 | Hospitalist Progress Note ---
Date of Service September 10, 2023 Assessment & Plan (1) Pneumonia: Plan: Pt is a 73 yo F with type 2 diabetes, dyslipidemia, BMI of 40, CKD stage IV, major depressive disorder, vertigo and other medical problems listed below who presents with ongoing shortness of breath x 2 weeks with pneumonia diagnosed in outpatient setting that has failed outpatient treatment. Cough and congestion x 3 weeks Started on Augmentin 09/01, azythromycin added 09/06, continues to feel fatigued with cough Afebrile, WBC 12K, procal neg, resp viral panel negative, MRSA swab negative CT abd/pelvis with scattered bilateral airspace opacities most pronounced within the left lower lobe. This favors a mild atypical/viral pneumonitis. 3-[address] follow-up recommended to ensure resolution Continue cefepime, doxy Mucinex BID, flutter valve (2) Acute kidney injury superimposed on CKD: Plan: Cr 3.35 (baseline ~ 2.0) Recent outpatient UA from 09/05 with >300 mg/dl protein, trace blood. Albumin/Cr ratio 2,270, Protein/Cr ratio 4,[address] Tovar in clinic Nephrology consulted Cr improved, cont. to monitor BMP (3) Hypertensive urgency: Plan: BP initially normal, slowly elevating in ED with 188/95 - admittedly nervous in ED. Cont. home amlodipine 5mg start hydralazine po 25 TID IV hydralazine prn Continue to monitor closely (4) Elevated troponin: Plan: Troponin 94.8 -> 90 ->82 Likely 2/2 elevated BP as above, CKD 2D echo obtained -no regional wall motion abnormalities noted. LV systolic function is normal. LVEF 60 to 65%. There is moderate mitral annular calcification. Grade 1 diastolic dysfunction. (5) Type 2 diabetes mellitus: Plan: A1c 7.6 Hold home agents Basal/bolus insulin while in-patient BSG AC HS (6) Depression: Plan: Continue fluoxetine DVT Ppx: SQ heparin Code status: FULL PCP: Martin Dispo: PCU Admission and Anticipated Discharge Date Admission Date: September 09, 2023 Subjective Pt seen in follow up of pna, KAVITA on CKD, hypertension Currently pt is laying in bed in NAD She denies any fever, chills, chest pain, shortness of breath. Feels weak and tired, reports hip pain (chronic- been seen by ortho outpt) Nephrology consulted Review of Systems Review of Systems: All systems reviewed & are unremarkable except as noted in Subjective Physical Exam Physical Exam: GENERAL: WD/WN F in NAD, on RA HEENT: normocephalic atraumatic NECK: supple LUNGS: no respiratory distress., CTAB, minimal rhonchi at bases, no wheezing HEART: rrr, no murmur ABDOMEN: Soft, obese, nontender EXTREMITIES: No LE edema, moves extremities NEUROLOGIC: awake, alert, oriented, answers appropriately, moving SKIN: warm, dry Results & Data Results & Data Vital Signs (Past 12 Hours) Vital Signs Temp Pulse Pulse Resp BP Pulse Ox O2 Del Method 09/10/23 11:12 36.8 C 80 28 H 183/78 H 94 Room Air 09/10/23 10:08 Room Air 09/10/23 10:07 74 09/10/23 07:59 154/80 H 09/10/23 07:14 36.5 C 92 H 215/120 H 95 Room Air 09/10/23 04:42 85 09/10/23 02:49 36.6 C 79 18 146/62 H 95 Room Air Laboratory Results 09/10/23 09/10/23 09/10/23 Range/Units 11:15 07:19 06:40 WBC 10.41 (4.8-10.8) K/ul RBC 3.35 L (4.20-5.40) M/uL Hgb 9.7 L (12.0-16.0) g/dl Hct 30.0 L (37.0-47.0) % MCV 89.6 (80.0-100.0) fL MCH 29.0 (25.0-34.0) pg MCHC 32.3 (32.0-36.0) g/dL RDW Std Deviation 45.7 (36.4-46.3) fL RDW Coeff of Aure 14.0 (11.5-14.5) % Plt Count 427 H (130-400) K/uL MPV 8.4 L (9.4-12.4) fL Immature Gran % (Auto) % Neut % (Auto) % Lymph % (Auto) % [place] % (Auto) % Eos % (Auto) % Baso % (Auto) % Neut # (Auto) (1.40-6.50) K/uL Lymph # (Auto) (1.20-3.40) K/uL [place] # (Auto) (0.11-0.59) K/uL Eos # (Auto) (0.00-0.50) K/uL Baso # (Auto) (0.00-0.20) K/uL Immature Gran # (Auto) (0.01-0.20) K/uL PT (9.0-12.0) Seconds INR (0.9-1.1) APTT (21-31) Seconds PTT Ratio VBG pH (7.36-7.41) VBG pCO2 (38-50) mmHg VBG pO2 mmHg VBG HCO3 mmol/L VBG O2 Saturation % VBG Base Excess mEq/L Sodium 136 (136-145) mmol/L Potassium 3.4 L (3.5-5.1) mmol/L Chloride 105 (98-107) mmol/L Carbon Dioxide 24 (21-32) mmol/L Anion Gap 7 (3-11) BUN 35 H (6-23) mg/dl Creatinine 3.02 H D (0.6-1.2) mg/dl Est Cr Clr Drug Dosing 18.6 Est GFR ( Amer) 16.9 ml/min Est GFR (Non-Af Amer) 14.6 ml/min BUN/Creatinine Ratio 11.6 (10-20) Glucose 106 H (70-99(Fasting)) mg/dl POC Glucose 109 H 109 H (70-99) mg/dl Calcium 8.4 L (8.6-10.3) mg/dl Phosphorus 3.9 (2.5-4.9) mg/dl Magnesium 1.8 (1.7-2.4) mg/dl Total Bilirubin 0.2 (0.2-1.0) mg/dl AST 28 (13-39) U/L ALT 29 (7-52) U/L Alkaline Phosphatase 159 H (34-104) U/L Troponin I High Sens (0-14) pg/ml Total Protein 5.9 L (6.0-8.3) gm/dl Albumin 2.7 L (3.4-5.0) gm/dl Globulin 3.2 (2.5-4.0) gm/dl Albumin/Globulin Ratio 0.8 L (0.9-2) Procalcitonin (0-0.5) ng/ml Urine Color Urine Appearance (Clear) Urine pH (4.5-7.5) Ur Specific [place] (1.000-1.030) Urine Protein (Negative) Urine Glucose (UA) (Negative) Urine Ketones (Negative) Urine Blood (Negative) Urine Nitrite (Negative) Urine Bilirubin (Negative) Urine Urobilinogen (Negative) Ur Leukocyte Esterase (Negative) Urine WBC (Auto) (0-5) /hpf Urine RBC (Auto) (0-2) /hpf U Hyaline Cast (Auto) (0-2) /lpf U Epithel Cells (Auto) (0-2) /hpf Urine Bacteria (Auto) (None Seen) Nasal Screen MRSA (PCR) (Negative) Adenovirus (PCR) (NotDetected) B. pertussis DNA (PCR) (NotDetected) B.parapertussis DNA PCR (NotDetected) C. pneumoniae DNA (PCR) (NotDetected) Coronavirus OC43 (PCR) (NotDetected) Coronavirus HKU1 (PCR) (NotDetected) Coronavirus 229E (PCR) (NotDetected) SARS-CoV-2 (PCR) (NotDetected) Coronavirus NL63 (PCR) (NotDetected) Human Metapneumovir PCR (NotDetected) Influenza Type A (PCR) (NotDetected) Influenza Type B (PCR) (NotDetected) M. pneumoniae (PCR) (NotDetected) Parainfluenza 1 (PCR) (NotDetected) Parainfluenza 2 (PCR) (NotDetected) Parainfluenza 3 (PCR) (NotDetected) Parainfluenza 4 (PCR) (NotDetected) RSV (PCR) (NotDetected) Entero/Rhino (PCR) (NotDetected) 09/09/23 09/09/23 09/09/23 Range/Units Unknown 22:51 20:07 WBC (4.8-10.8) K/ul RBC (4.20-5.40) M/uL Hgb (12.0-16.0) g/dl Hct (37.0-47.0) % MCV (80.0-100.0) fL MCH (25.0-34.0) pg MCHC (32.0-36.0) g/dL RDW Std Deviation (36.4-46.3) fL RDW Coeff of Aure (11.5-14.5) % Plt Count (130-400) K/uL MPV (9.4-12.4) fL Immature Gran % (Auto) % Neut % (Auto) % Lymph % (Auto) % [place] % (Auto) % Eos % (Auto) % Baso % (Auto) % Neut # (Auto) (1.40-6.50) K/uL Lymph # (Auto) (1.20-3.40) K/uL [place] # (Auto) (0.11-0.59) K/uL Eos # (Auto) (0.00-0.50) K/uL Baso # (Auto) (0.00-0.20) K/uL Immature Gran # (Auto) (0.01-0.20) K/uL PT (9.0-12.0) Seconds INR (0.9-1.1) APTT (21-31) Seconds PTT Ratio VBG pH (7.36-7.41) VBG pCO2 (38-50) mmHg VBG pO2 mmHg VBG HCO3 mmol/L VBG O2 Saturation % VBG Base Excess mEq/L Sodium (136-145) mmol/L Potassium (3.5-5.1) mmol/L Chloride (98-107) mmol/L Carbon Dioxide (21-32) mmol/L Anion Gap (3-11) BUN (6-23) mg/dl Creatinine (0.6-1.2) mg/dl Est Cr Clr Drug Dosing Est GFR ( Amer) ml/min Est GFR (Non-Af Amer) ml/min BUN/Creatinine Ratio (10-20) Glucose (70-99(Fasting)) mg/dl POC Glucose 159 H (70-99) mg/dl Calcium (8.6-10.3) mg/dl Phosphorus (2.5-4.9) mg/dl Magnesium (1.7-2.4) mg/dl Total Bilirubin (0.2-1.0) mg/dl AST (13-39) U/L ALT (7-52) U/L Alkaline Phosphatase (34-104) U/L Troponin I High Sens 82.2 H* (0-14) pg/ml Total Protein (6.0-8.3) gm/dl Albumin (3.4-5.0) gm/dl Globulin (2.5-4.0) gm/dl Albumin/Globulin Ratio (0.9-2) Procalcitonin (0-0.5) ng/ml Urine Color Urine Appearance (Clear) Urine pH (4.5-7.5) Ur Specific [place] (1.000-1.030) Urine Protein (Negative) Urine Glucose (UA) (Negative) Urine Ketones (Negative) Urine Blood (Negative) Urine Nitrite (Negative) Urine Bilirubin (Negative) Urine Urobilinogen (Negative) Ur Leukocyte Esterase (Negative) Urine WBC (Auto) (0-5) /hpf Urine RBC (Auto) (0-2) /hpf U Hyaline Cast (Auto) (0-2) /lpf U Epithel Cells (Auto) (0-2) /hpf Urine Bacteria (Auto) (None Seen) Nasal Screen MRSA (PCR) Negative (Negative) Adenovirus (PCR) (NotDetected) B. pertussis DNA (PCR) (NotDetected) B.parapertussis DNA PCR (NotDetected) C. pneumoniae DNA (PCR) (NotDetected) Coronavirus OC43 (PCR) (NotDetected) Coronavirus HKU1 (PCR) (NotDetected) Coronavirus 229E (PCR) (NotDetected) SARS-CoV-2 (PCR) (NotDetected) Coronavirus NL63 (PCR) (NotDetected) Human Metapneumovir PCR (NotDetected) Influenza Type A (PCR) (NotDetected) Influenza Type B (PCR) (NotDetected) M. pneumoniae (PCR) (NotDetected) Parainfluenza 1 (PCR) (NotDetected) Parainfluenza 2 (PCR) (NotDetected) Parainfluenza 3 (PCR) (NotDetected) Parainfluenza 4 (PCR) (NotDetected) RSV (PCR) (NotDetected) Entero/Rhino (PCR) (NotDetected) 09/09/23 09/09/23 09/09/23 Range/Units 19:37 17:47 16:24 WBC (4.8-10.8) K/ul RBC (4.20-5.40) M/uL Hgb (12.0-16.0) g/dl Hct (37.0-47.0) % MCV (80.0-100.0) fL MCH (25.0-34.0) pg MCHC (32.0-36.0) g/dL RDW Std Deviation (36.4-46.3) fL RDW Coeff of Aure (11.5-14.5) % Plt Count (130-400) K/uL MPV (9.4-12.4) fL Immature Gran % (Auto) % Neut % (Auto) % Lymph % (Auto) % [place] % (Auto) % Eos % (Auto) % Baso % (Auto) % Neut # (Auto) (1.40-6.50) K/uL Lymph # (Auto) (1.20-3.40) K/uL [place] # (Auto) (0.11-0.59) K/uL Eos # (Auto) (0.00-0.50) K/uL Baso # (Auto) (0.00-0.20) K/uL Immature Gran # (Auto) (0.01-0.20) K/uL PT (9.0-12.0) Seconds INR (0.9-1.1) APTT (21-31) Seconds PTT Ratio VBG pH (7.36-7.41) VBG pCO2 (38-50) mmHg VBG pO2 mmHg VBG HCO3 mmol/L VBG O2 Saturation % VBG Base Excess mEq/L Sodium (136-145) mmol/L Potassium (3.5-5.1) mmol/L Chloride (98-107) mmol/L Carbon Dioxide (21-32) mmol/L Anion Gap (3-11) BUN (6-23) mg/dl Creatinine (0.6-1.2) mg/dl Est Cr Clr Drug Dosing Est GFR ( Amer) ml/min Est GFR (Non-Af Amer) ml/min BUN/Creatinine Ratio (10-20) Glucose (70-99(Fasting)) mg/dl POC Glucose (70-99) mg/dl Calcium (8.6-10.3) mg/dl Phosphorus (2.5-4.9) mg/dl Magnesium (1.7-2.4) mg/dl Total Bilirubin (0.2-1.0) mg/dl AST (13-39) U/L ALT (7-52) U/L Alkaline Phosphatase (34-104) U/L Troponin I High Sens 90.1 H* (0-14) pg/ml Total Protein (6.0-8.3) gm/dl Albumin (3.4-5.0) gm/dl Globulin (2.5-4.0) gm/dl Albumin/Globulin Ratio (0.9-2) Procalcitonin 0.15 (0-0.5) ng/ml Urine Color Yellow Urine Appearance Clear (Clear) Urine pH 6.0 (4.5-7.5) Ur Specific [place] 1.014 (1.000-1.030) Urine Protein 3+ H (Negative) Urine Glucose (UA) 1+ H (Negative) Urine Ketones Negative (Negative) Urine Blood Negative (Negative) Urine Nitrite Negative (Negative) Urine Bilirubin Negative (Negative) Urine Urobilinogen Negative (Negative) Ur Leukocyte Esterase Negative (Negative) Urine WBC (Auto) 0-5 (0-5) /hpf Urine RBC (Auto) 0-2 (0-2) /hpf U Hyaline Cast (Auto) 3-5 H (0-2) /lpf U Epithel Cells (Auto) 0-2 (0-2) /hpf Urine Bacteria (Auto) None Seen (None Seen) Nasal Screen MRSA (PCR) (Negative) Adenovirus (PCR) (NotDetected) B. pertussis DNA (PCR) (NotDetected) B.parapertussis DNA PCR (NotDetected) C. pneumoniae DNA (PCR) (NotDetected) Coronavirus OC43 (PCR) (NotDetected) Coronavirus HKU1 (PCR) (NotDetected) Coronavirus 229E (PCR) (NotDetected) SARS-CoV-2 (PCR) (NotDetected) Coronavirus NL63 (PCR) (NotDetected) Human Metapneumovir PCR (NotDetected) Influenza Type A (PCR) (NotDetected) Influenza Type B (PCR) (NotDetected) M. pneumoniae (PCR) (NotDetected) Parainfluenza 1 (PCR) (NotDetected) Parainfluenza 2 (PCR) (NotDetected) Parainfluenza 3 (PCR) (NotDetected) Parainfluenza 4 (PCR) (NotDetected) RSV (PCR) (NotDetected) Entero/Rhino (PCR) (NotDetected) 09/09/23 09/09/23 Range/Units 14:37 14:09 WBC 12.69 H (4.8-10.8) K/ul RBC 3.66 L (4.20-5.40) M/uL Hgb 10.6 L (12.0-16.0) g/dl Hct 33.0 L (37.0-47.0) % MCV 90.2 (80.0-100.0) fL MCH 29.0 (25.0-34.0) pg MCHC 32.1 (32.0-36.0) g/dL RDW Std Deviation 46.1 (36.4-46.3) fL RDW Coeff of Aure 13.9 (11.5-14.5) % Plt Count 509 H (130-400) K/uL MPV 8.6 L (9.4-12.4) fL Immature Gran % (Auto) 1.3 % Neut % (Auto) 82.7 % Lymph % (Auto) 9.1 % [place] % (Auto) 4.4 % Eos % (Auto) 2.0 % Baso % (Auto) 0.5 % Neut # (Auto) 10.50 H (1.40-6.50) K/uL Lymph # (Auto) 1.15 L (1.20-3.40) K/uL [place] # (Auto) 0.56 (0.11-0.59) K/uL Eos # (Auto) 0.25 (0.00-0.50) K/uL Baso # (Auto) 0.06 (0.00-0.20) K/uL Immature Gran # (Auto) 0.17 (0.01-0.20) K/uL PT 10.4 (9.0-12.0) Seconds INR 1.0 (0.9-1.1) APTT 27 (21-31) Seconds PTT Ratio 1.0 VBG pH 7.37 (7.36-7.41) VBG pCO2 44 (38-50) mmHg VBG pO2 42 mmHg VBG HCO3 25 mmol/L VBG O2 Saturation 79.5 % VBG Base Excess -0.2 mEq/L Sodium 137 (136-145) mmol/L Potassium 3.3 L (3.5-5.1) mmol/L Chloride 103 (98-107) mmol/L Carbon Dioxide 24 (21-32) mmol/L Anion Gap 10 (3-11) BUN 39 H (6-23) mg/dl Creatinine 3.35 H (0.6-1.2) mg/dl Est Cr Clr Drug Dosing Not Reportable Est GFR ( Amer) 14.9 ml/min Est GFR (Non-Af Amer) 12.9 ml/min BUN/Creatinine Ratio 11.6 (10-20) Glucose 157 H (70-99(Fasting)) mg/dl POC Glucose (70-99) mg/dl Calcium 8.8 (8.6-10.3) mg/dl Phosphorus (2.5-4.9) mg/dl Magnesium 1.9 (1.7-2.4) mg/dl Total Bilirubin 0.3 (0.2-1.0) mg/dl AST 40 H (13-39) U/L ALT 32 (7-52) U/L Alkaline Phosphatase 175 H (34-104) U/L Troponin I High Sens 94.8 H* (0-14) pg/ml Total Protein 6.6 (6.0-8.3) gm/dl Albumin 3.0 L (3.4-5.0) gm/dl Globulin 3.6 (2.5-4.0) gm/dl Albumin/Globulin Ratio 0.8 L (0.9-2) Procalcitonin (0-0.5) ng/ml Urine Color Urine Appearance (Clear) Urine pH (4.5-7.5) Ur Specific [place] (1.000-1.030) Urine Protein (Negative) Urine Glucose (UA) (Negative) Urine Ketones (Negative) Urine Blood (Negative) Urine Nitrite (Negative) Urine Bilirubin (Negative) Urine Urobilinogen (Negative) Ur Leukocyte Esterase (Negative) Urine WBC (Auto) (0-5) /hpf Urine RBC (Auto) (0-2) /hpf U Hyaline Cast (Auto) (0-2) /lpf U Epithel Cells (Auto) (0-2) /hpf Urine Bacteria (Auto) (None Seen) Nasal Screen MRSA (PCR) (Negative) Adenovirus (PCR) Not Detected (NotDetected) B. pertussis DNA (PCR) Not Detected (NotDetected) B.parapertussis DNA PCR Not Detected (NotDetected) C. pneumoniae DNA (PCR) Not Detected (NotDetected) Coronavirus OC43 (PCR) Not Detected (NotDetected) Coronavirus HKU1 (PCR) Not Detected (NotDetected) Coronavirus 229E (PCR) Not Detected (NotDetected) SARS-CoV-2 (PCR) Not Detected (NotDetected) Coronavirus NL63 (PCR) Not Detected (NotDetected) Human Metapneumovir PCR Not Detected (NotDetected) Influenza Type A (PCR) Not Detected (NotDetected) Influenza Type B (PCR) Not Detected (NotDetected) M. pneumoniae (PCR) Not Detected (NotDetected) Parainfluenza 1 (PCR) Not Detected (NotDetected) Parainfluenza 2 (PCR) Not Detected (NotDetected) Parainfluenza 3 (PCR) Not Detected (NotDetected) Parainfluenza 4 (PCR) Not Detected (NotDetected) RSV (PCR) Not Detected (NotDetected) Entero/Rhino (PCR) Not Detected (NotDetected) Medications Administered Current Inpatient Medications Acetaminophen (Acetaminophen 325 Mg Tab) 650 mg PO Q4H PRN PRN Reason: Pain or Fever Stop: 10/09/23 19:13 Last Admin: 09/10/23 01:33 Dose: 650 mg Amlodipine Besylate (Amlodipine Besylate 5 Mg Tab) 5 mg PO QPM [facility] Stop: 10/10/23 20:59 Aspirin (Aspirin 81 Mg Ectab) 81 mg PO QAM [facility] Stop: 10/10/23 08:59 Last Admin: 09/10/23 08:02 Dose: 81 mg Cyanocobalamin (Cyanocobalamin (B-12) 500 Mcg Tablet) [facility] [place]: 10/10/23 08:59 Last Admin: 09/10/23 08:00 Dose: 500 mcg Dextrose (Dextrose 50% 50 Ml Syringe) 25 - 50 ml IV UD PRN; Protocol PRN Reason: Hypoglycemia Protocol Stop: 10/09/23 18:11 Fluoxetine HCl (Fluoxetine Hcl 20 Mg Cap) 40 mg PO QAM [facility] Stop: 10/10/23 08:59 Last Admin: 09/10/23 08:01 Dose: 40 mg Fluticasone Propionate (Fluticasone Propionate Na Spr 16 Gm Btl) 2 sprays NOÉ DAILY JESS Stop: 10/10/23 08:59 Last Admin: 09/10/23 08:01 Dose: Not Given Gabapentin (Gabapentin 300 Mg Cap) 300 mg PO BID JESS Stop: 10/09/23 20:59 Last Admin: 09/10/23 08:00 Dose: 300 mg Glucagon (Glucagon For Inj 1 Mg Vial) 1 mg SQ UD PRN; Protocol PRN Reason: Hypoglycemia Protocol Stop: 10/09/23 18:11 Glucose (Glucose 40% Gel 15 Gm Tube) 15 - 30 gm PO UD PRN; Protocol PRN Reason: Hypoglycemia Protocol Stop: 10/09/23 18:11 Glucose (Glucose 10 Tab/Tube) 4 - 8 tab PO UD PRN; Protocol PRN Reason: Hypoglycemia Treatment Stop: 10/09/23 18:11 Guaifenesin (Guaifenesin 600 Mg Tabcr) 600 mg PO Q12 JESS Stop: 10/09/23 17:24 Last Admin: 09/10/23 08:00 Dose: 600 mg Heparin Sodium (Porcine) (Heparin Sod 5,000 Unit/0.5 Ml Vial) 5,000 units SQ Q8 JESS Stop: 10/09/23 21:59 Last Admin: 09/10/23 05:43 Dose: 5,000 units Hydralazine HCl (Hydralazine Hcl 20 Mg/Ml Vial) 5 mg IV Q6H PRN PRN Reason: SBP greater than 180 Stop: 10/09/23 18:09 Last Admin: 09/10/23 07:28 Dose: 5 mg Doxycycline Hyclate 100 mg/ (Dextrose) 100 mls @ 50 mls/hr IV Q12H [facility] Stop: 09/16/23 17:59 Last Infusion: 09/10/23 07:52 Dose: Infused Insulin Aspart (Insulin Aspart Per Unit Charge) 0 units SC ACHS [facility] Stop: 10/09/23 18:15 Last Admin: 09/10/23 11:52 Dose: 6 units Insulin Glargine (Lantus Per Unit Charge) 0 - 8 units SQ BID JESS Stop: 10/09/23 20:59 Last Admin: 09/10/23 07:54 Dose: Not Given Losartan Potassium (Losartan Potassium 50 Mg Tab) 100 mg PO QAM JESS Stop: 10/10/23 08:59 Last Admin: 09/10/23 08:02 Dose: 100 mg Melatonin (Melatonin 3 Mg Tab) 3 mg PO HS PRN PRN Reason: Sleep Stop: 10/10/23 01:42 Last Admin: 09/10/23 01:51 Dose: 3 mg Miscellaneous (Carbohydrates For Hypoglycemia ) 15 - 30 gm PO UD PRN PRN Reason: Hypoglycemia Protocol Stop: 10/09/23 18:11 Ondansetron HCl (Ondansetron Inj 2 Mg/Ml 2 Ml Vial) 4 mg IV Q6H PRN PRN Reason: Nausea Stop: 10/09/23 19:13 Oxybutynin Chloride (Oxybutynin Chloride 5 Mg Tab) 5 mg PO QAM JESS Stop: 10/10/23 08:59 Last Admin: 09/10/23 08:00 Dose: 5 mg Polyethylene Glycol (Polyethylene (Miralax) 17 Gm Pack) 17 gm PO DAILY PRN PRN Reason: Constipation Stop: 10/09/23 19:13 Rosuvastatin Calcium (Rosuvastatin Calcium 10 Mg Tab) 10 mg PO QPM JESS Stop: 10/09/23 20:59 Last Admin: 09/09/23 20:27 Dose: 10 mg Vitamin D (Cholecalciferol 125 Mcg (5,000 Units) Tab) 125 mcg PO DAILY JESS Stop: 10/10/23 08:59 Last Admin: 09/10/23 08:02 Dose: 125 mcg (1) Pneumonia Laterality: bilateral Lung location: unspecified part of lung Pneumonia type: due to unspecified organism Qualified Code(s): J18.9 - Pneumonia, unspecified organism
--- NOTE | 2023-09-10 13:17 | Nephrology Consultation ---
Date of Consultation September 10, 2023 Assessment & Plan (1) Acute kidney injury superimposed on CKD: baseline creat about 2 making her CKD 4. Now with GREGOR likely pre renal /hemodynamic related with Acute illness of Pneumonia. Creat today sis lightly better than yesterday. She did receive some iv fluids. BP is now high so unlikely to be really volume depleted so no need for more iv fluids. Will hold Losartan for now. NO hydronephrosis on CT. Will follow with daily labs and I and O charting. Avoid NSAIDs, Contrast and nephrotoxic drugs for now Current abx is fine. She has multiple lsions on CT abdomen--will do renal US in few months. (2) Pneumonia: reviewed recent course of event. Now on RA. On Doxycycline which can be continued. (3) Hypertensive urgency: BP is currently high but given GREGRO would still stop Losartan for now. Instead add hydralazine 25 tid for now. will decide about Losartan tomorrow. Plan time spent 1hr History of Present Illness Reason for Consultation: Gregor on CKD Attending Physician: Gerry Pittman MD History of Present Illness 73/F with CKD 4 baseline creat around 2, type 2 diabetes, HTN, dyslipidemia, BMI of 40, major depressive disorder Presented with ongoing shortness of breath for 2 weeks with productive cough and generalized weakness as well as wheezing.She was seen in PCP office on 09/01 and was started on a 10-day course of Augmentin. Outpatient chest x-ray from 09/01 showed left basilar airspace opacities. Was seen again by PCP on 09/07/2023 with continued cough as well as some confusion. Azithromycin was added for better atypical coverage. She was noted to be confused and directed to come to ED for further evaluation. She was seen by me back in Jan 2023 and is due to see again in September. Baseline Cr ~ 2. 1. No F/C, lightheadedness, CP, N/V, abd pain, dysuria, diarrhea or constipation. On adx creat was 3.3 and this AM down a bit to 3. ROS--see HPI. 12 Systems reviewed and negative otherwise. PHYSICAL EXAM: GENERAL: Patient is in no acute distress. HEENT: No acute trauma, normocephalic atraumatic, mucous membranes moist, no nasal congestion. NECK: No stridor, no adenopathy, no meningismus, trachea is midline. LUNGS: Crackles at the right base, no wheezing or respiratory distress. HEART: Without murmurs gallops or rubs, regular rate and rhythm. ABDOMEN: Soft, nontender, no peritonitis. EXTREMITIES: No cyanosis, full range of motion of all the joints without pain or difficulty. NEUROLOGIC: Oriented x 3, no acute motor or sensory deficits, no focal weakness. SKIN: No jaundice, no diaphoresis. Allergies Allergy/AdvReac Type Severity Reaction Status Date / Time No Known Allergies Allergy Verified 09/09/23 15:55 Home Medications Medication Instructions Recorded Confirmed Type aspirin 81 mg tablet,delayed 81 mg PO QAM 03/13/19 09/09/23 History release cyanocobalamin (vitamin B-12) 500 500 mcg PO QAM 03/13/19 09/09/23 History mcg tablet (Vitamin B-12) gabapentin 600 mg tablet 600 mg PO BID 03/13/19 09/09/23 History insulin glargine U-300 conc 300 16 unit subcut QAM 03/13/19 09/09/23 History unit/mL (3 mL) subcutaneous pen (Toujeo Max U-300 SoloStar) insulin lispro 100 unit/mL 18 unit subcut TIDM 03/13/19 09/09/23 History subcutaneous pen (Humalog KwikPen (U-100) Insulin) acetaminophen 325 mg tablet 325 mg PO Q6H PRN Pain 09/09/23 09/09/23 History (Tylenol) amlodipine 5 mg tablet 5 mg PO QPM 09/09/23 09/09/23 History amoxicillin 500 mg-potassium 1 tab PO BID 09/09/23 09/09/23 History clavulanate 125 mg tablet azithromycin 250 mg tablet 250 mg PO DAILY 09/09/23 09/09/23 History cholecalciferol (vitamin D3) 125 125 mcg PO DAILY 09/09/23 09/09/23 History mcg (5,000 unit) tablet (Vitamin D3) fluoxetine 40 mg capsule 40 mg PO QAM 09/09/23 09/09/23 History fluticasone propionate 50 2 spray intranasal DAILY 09/09/23 09/09/23 History mcg/actuation nasal spray,suspension omega-3 fatty acids 1,000 mg 1,000 mg PO QAM 09/09/23 09/09/23 History capsule oxybutynin chloride 5 mg tablet 5 mg PO QAM 09/09/23 09/09/23 History rosuvastatin 10 mg tablet 10 mg PO QPM 09/09/23 09/09/23 History telmisartan 80 mg tablet 80 mg PO QAM 09/09/23 09/09/23 History Patient History Surgical History History of nasal surgery Family History Other Breast cancer No pertinent family history Social History Smoking Status: Never smoker Second Hand Exposure: No; Do You Dip or Chew Tobacco: No; Tobacco Cessation Education Requested by Patient: No Hx Alcohol Use: No Hx Substance Use: No Preferred Language: Faroese Communication Ability: Effective Alternative Energy Engineer Required: No Beliefs That Will Affect Care: None Current Living Situation: Alone Current Living Situation Comment: Lives at home alone - has assitance with a home health aid and daughter Other Information That Helps Us Care for You: No Feels Safe at Home: Yes Safety Concerns: Feels Safe At This Time Results & Data Vital Signs (Past 12 Hours) Vital Signs Temp Pulse Pulse Resp BP Pulse Ox O2 Del Method 09/10/23 11:12 36.8 C 80 28 H 183/78 H 94 Room Air 09/10/23 10:08 Room Air 09/10/23 10:07 74 09/10/23 07:59 154/80 H 09/10/23 07:14 36.5 C 92 H 215/120 H 95 Room Air 09/10/23 04:42 85 09/10/23 02:49 36.6 C 79 18 146/62 H 95 Room Air Laboratory Results Reviewed Diagnostic Findings CXr--Unremarkable. CT chest---Possible viral Pneumonia CT abdomen---NO [place]. Some renal lesions that need further follow up imaging. (2) Pneumonia Laterality: bilateral Lung location: unspecified part of lung Pneumonia type: due to unspecified organism Qualified Code(s): J18.9 - Pneumonia, unspecified organism
[2023-09-10] MEDS: hydrALAZINE HCL 25 MG TAB PO SCH (14:09)
[2023-09-10] MEDS: traMADol HCL 50 MG TABLET PO PRN (20:52)
[2023-09-10] MEDS: amLODIPine BESYLATE 5 MG TAB PO SCH (20:53)
--- NOTE | 2023-09-10 20:56 | Electrocardiogram Report ---
Test Reason : Blood Pressure : / mmHG Vent. Rate : 076 BPM Atrial Rate : 076 BPM P-R Int : 204 ms QRS Dur : 090 ms QT Int : 394 ms P-R-T Axes : 062 -23 075 degrees QTc Int : 443 ms Normal sinus rhythm Moderate voltage criteria for LVH, may be normal variant ( R in aVL , [place] product ) Nonspecific T wave abnormality Abnormal ECG When compared with ECG of 09-JUL-2022 21:07, Borderline criteria for Anterolateral infarct are no longer Present Nonspecific T wave abnormality, worse in Lateral leads Confirmed by Anjel Aranda ([id number]) on 09/10/2023 8:55:48 PM Referred By: Ghada Salazar Confirmed By:Anjel Aranda
[2023-09-11 05:45] LABS: Hematocrit (blood only) 29.9 % (37.0-47.0); Hemoglobin 9.6 g/dl (12.0-16.0); Mean Corpuscular Hemoglobin 28.7 pg (25.0-34.0); Mean Corpuscular Hgb Conc 32.1 g/dL (32.0-36.0); Mean Corpuscular Volume 89.3 fL (80.0-100.0); Mean Platelet Volume 8.6 fL (9.4-12.4); Platelet Count 403 K/uL (130-400); RDW Coefficient of Variation 14.1 % (11.5-14.5); RDW Standard Deviation 46.4 fL (36.4-46.3); Red Blood Count 3.35 M/uL (4.20-5.40); White Blood Count 11.24 K/ul (4.8-10.8)
[2023-09-11 06:03] LABS: BUN Creatinine Ratio 12.5 (10-20); Calcium 8.6 mg/dl (8.6-10.3); Est GFR (African American) 16.3 ml/min; Est GFR (Non-African American) 14.1 ml/min; Magnesium 1.7 mg/dl (1.7-2.4); Phosphorus 4.1 mg/dl (2.5-4.9); Potassium 3.5 mmol/L (3.5-5.1)
--- NOTE | 2023-09-11 11:40 | Nephrology Progress Note ---
Date of Service September 11, 2023 Assessment & Plan Admission and Anticipated Discharge Date Admission Date: September 09, 2023 [place] [facility] [place] [address] Nephrology Consultation Signed Assessment & Plan (1) Acute kidney injury superimposed on CKD: baseline creat about 2 making her CKD 4. Now with KAVITA likely pre renal /hemodynamic related with Acute illness of Pneumonia. Creat today sis lightly better than yesterday. She did receive some iv fluids. BP is now high so unlikely to be really volume depleted so no need for more iv fluids. Will hold Losartan for now. Creat about same now for 2 days--but not coming down . Will follow . No Dialysis. NO hydronephrosis on CT. Will follow with daily labs and I and O charting. Avoid NSAIDs, Contrast and nephrotoxic drugs for now Current abx is fine. She has multiple lsions on CT abdomen--will do renal US in few months. (2) Pneumonia: reviewed recent course of event. Now on RA. On Doxycycline which can be continued. (3) Hypertensive urgency: BP is currently high but given KAVITA would still stop Losartan for now. No Jayesh/ARB for now. raise hydralazine to 50 tid. S--no new issues. BP still somewhat high. on RA. PHYSICAL EXAM: GENERAL: Patient is in no acute distress. HEENT: No acute trauma, normocephalic atraumatic, mucous membranes moist, no nasal congestion. NECK: No stridor, no adenopathy, no meningismus, trachea is midline. LUNGS: Crackles at the right base, no wheezing or respiratory distress. HEART: Without murmurs gallops or rubs, regular rate and rhythm. ABDOMEN: Soft, nontender, no peritonitis. EXTREMITIES: No cyanosis, full range of motion of all the joints without pain or difficulty. NEUROLOGIC: Oriented x 3, no acute motor or sensory deficits, no focal weakness. SKIN: No jaundice, no diaphoresis. Results & Data Vital Signs (Past 12 Hours) Vital Signs Temp Pulse Pulse Resp BP Pulse Ox O2 Del Method 09/11/23 11:13 36.6 C 80 28 H 175/92 H 95 Room Air 09/11/23 10:44 Room Air 09/11/23 07:43 79 09/11/23 07:16 36.7 C 77 17 174/85 H 95 Room Air 09/11/23 02:21 36.7 C 102 H 17 168/77 H 97 Room Air
--- NOTE | 2023-09-11 14:44 | Hospitalist Progress Note ---
Date of Service September 11, 2023 Assessment & Plan (1) Pneumonia: Plan: Pt is a 73 yo F with type 2 diabetes, dyslipidemia, BMI of 40, CKD stage IV, major depressive disorder, vertigo and other medical problems listed below who presents with ongoing shortness of breath x 2 weeks with pneumonia diagnosed in outpatient setting that has failed outpatient treatment. Cough and congestion x 3 weeks Started on Augmentin 09/01, azythromycin added 09/06, continues to feel fatigued with cough Afebrile, WBC 12K, procal neg, resp viral panel negative, MRSA swab negative CT abd/pelvis with scattered bilateral airspace opacities most pronounced within the left lower lobe. This favors a mild atypical/viral pneumonitis. 3-[address] follow-up recommended to ensure resolution Continue cefepime, doxy Mucinex BID, flutter valve (2) Acute kidney injury superimposed on CKD: Plan: Cr 3.35 (baseline ~ 2.0) Recent outpatient UA from 09/05 with >300 mg/dl protein, trace blood. Albumin/Cr ratio 2,270, Protein/Cr ratio 4,057 Hold telmisartan Follows with Dr. Tovar in clinic Nephrology consulted - She has multiple lesions on CT abdomen--will do renal US in few months. Cr improved, cont. to monitor BMP (3) Hypertensive urgency: Plan: BP now somewhat improved Cont. home amlodipine 5mg started hydralazine po TID scheduled, continue home telmisartan on hold d/t kavita IV hydralazine prn Continue to monitor closely nephrology following (4) Elevated troponin: Plan: Troponin 94.8 -> 90 ->82 Likely 2/2 elevated BP as above, CKD 2D echo obtained -no regional wall motion abnormalities noted. LV systolic function is normal. LVEF 60 to 65%. There is moderate mitral annular calcification. Grade 1 diastolic dysfunction. (5) Type 2 diabetes mellitus: Plan: A1c 7.6 Hold home agents Basal/bolus insulin while in-patient BSG AC HS (6) Depression: Plan: Continue fluoxetine DVT Ppx: SQ heparin Code status: FULL PCP: Martin Dispo: PCU -> med/ tele Admission and Anticipated Discharge Date Admission Date: September 09, 2023 Subjective Pt seen in follow up of pna, KAVITA on CKD, hypertension Currently pt is laying in bed in NAD She denies any fever, chills, chest pain, shortness of breath at rest. Reports shortness of breath on exertion ongoing for some time per pt. some cough, no significant sputum production. reports hip pain (chronic- been seen by ortho outpt) Nephrology consulted and discussed with - cont. po hydralazine, no TALISHA/ARB Review of Systems Review of Systems: All systems reviewed & are unremarkable except as noted in Subjective Physical Exam Physical Exam: GENERAL: WD/WN F in NAD, on RA HEENT: normocephalic, atraumatic NECK: supple LUNGS: no respiratory distress., CTAB, minimal rhonchi at bases, no wheezing HEART: rrr, no murmur ABDOMEN: Soft, obese, nontender EXTREMITIES: No LE edema, moves extremities NEUROLOGIC: awake, alert, oriented, answers appropriately, moving SKIN: warm, dry Results & Data Results & Data Vital Signs (Past 12 Hours) Vital Signs Temp Pulse Pulse Resp BP Pulse Ox O2 Del Method 09/11/23 11:13 36.6 C 80 28 H 175/92 H 95 Room Air 09/11/23 10:44 Room Air 09/11/23 07:43 79 09/11/23 07:16 36.7 C 77 17 174/85 H 95 Room Air Laboratory Results 09/11/23 09/11/23 09/11/23 Range/Units 11:17 07:19 05:29 WBC 11.24 H (4.8-10.8) K/ul RBC 3.35 L (4.20-5.40) M/uL Hgb 9.6 L (12.0-16.0) g/dl Hct 29.9 L (37.0-47.0) % MCV 89.3 (80.0-100.0) fL MCH 28.7 (25.0-34.0) pg MCHC 32.1 (32.0-36.0) g/dL RDW Std Deviation 46.4 H (36.4-46.3) fL RDW Coeff of Aure 14.1 (11.5-14.5) % Plt Count 403 H (130-400) K/uL MPV 8.6 L (9.4-12.4) fL Sodium 135 L (136-145) mmol/L Potassium 3.5 (3.5-5.1) mmol/L Chloride 104 (98-107) mmol/L Carbon Dioxide 21 (21-32) mmol/L Anion Gap 10 (3-11) BUN 39 H (6-23) mg/dl Creatinine 3.11 H (0.6-1.2) mg/dl Est Cr Clr Drug Dosing 12.0 ml/min Est GFR ( Amer) 16.3 ml/min Est GFR (Non-Af Amer) 14.1 ml/min BUN/Creatinine Ratio 12.5 (10-20) Glucose 119 H (70-99(Fasting)) mg/dl POC Glucose 111 H 151 H (70-99) mg/dl Calcium 8.6 (8.6-10.3) mg/dl Phosphorus 4.1 (2.5-4.9) mg/dl Magnesium 1.7 (1.7-2.4) mg/dl 09/10/23 09/10/23 Range/Units 20:08 16:08 WBC (4.8-10.8) K/ul RBC (4.20-5.40) M/uL Hgb (12.0-16.0) g/dl Hct (37.0-47.0) % MCV (80.0-100.0) fL MCH (25.0-34.0) pg MCHC (32.0-36.0) g/dL RDW Std Deviation (36.4-46.3) fL RDW Coeff of Aure (11.5-14.5) % Plt Count (130-400) K/uL MPV (9.4-12.4) fL Sodium (136-145) mmol/L Potassium (3.5-5.1) mmol/L Chloride (98-107) mmol/L Carbon Dioxide (21-32) mmol/L Anion Gap (3-11) BUN (6-23) mg/dl Creatinine (0.6-1.2) mg/dl Est Cr Clr Drug Dosing ml/min Est GFR ( Amer) ml/min Est GFR (Non-Af Amer) ml/min BUN/Creatinine Ratio (10-20) Glucose (70-99(Fasting)) mg/dl POC Glucose 158 H 128 H (70-99) mg/dl Calcium (8.6-10.3) mg/dl Phosphorus (2.5-4.9) mg/dl Magnesium (1.7-2.4) mg/dl Medications Administered Current Inpatient Medications Acetaminophen (Acetaminophen 325 Mg Tab) 650 mg PO Q4H PRN PRN Reason: Pain or Fever Stop: 10/09/23 19:13 Last Admin: 09/10/23 01:33 Dose: 650 mg Amlodipine Besylate (Amlodipine Besylate 5 Mg Tab) 5 mg PO BID [facility] Stop: 10/11/23 20:59 Aspirin (Aspirin 81 Mg Ectab) 81 mg PO QAM [facility] Stop: 10/10/23 08:59 Last Admin: 09/11/23 08:42 Dose: 81 mg Cyanocobalamin (Cyanocobalamin (B-12) 500 Mcg Tablet) 500 mcg PO QAM [facility] Stop: 10/10/23 08:59 Last Admin: 09/11/23 08:42 Dose: 500 mcg Dextrose (Dextrose 50% 50 Ml Syringe) 25 - 50 ml IV UD PRN; Protocol PRN Reason: Hypoglycemia Protocol Stop: 10/09/23 18:11 Fluoxetine HCl (Fluoxetine Hcl 20 Mg Cap) 40 mg PO QAM [facility] Stop: 10/10/23 08:59 Last Admin: 09/11/23 08:42 Dose: 40 mg Fluticasone Propionate (Fluticasone Propionate Na Spr 16 Gm Btl) 2 sprays NOÉ DAILY [facility] Stop: 10/10/23 08:59 Last Admin: 09/11/23 08:43 Dose: 2 sprays Gabapentin (Gabapentin 300 Mg Cap) 300 mg PO BID [facility] Stop: 10/09/23 20:59 Last Admin: 09/11/23 08:42 Dose: 300 mg Glucagon (Glucagon For Inj 1 Mg Vial) 1 mg SQ UD PRN; Protocol PRN Reason: Hypoglycemia Protocol Stop: 10/09/23 18:11 Glucose (Glucose 40% Gel 15 Gm Tube) 15 - 30 gm PO UD PRN; Protocol PRN Reason: Hypoglycemia Protocol Stop: 10/09/23 18:11 Glucose (Glucose 10 Tab/Tube) 4 - 8 tab PO UD PRN; Protocol PRN Reason: Hypoglycemia Treatment Stop: 10/09/23 18:11 Guaifenesin (Guaifenesin 600 Mg Tabcr) 600 mg PO Q12 [facility] Stop: 10/09/23 17:24 Last Admin: 09/11/23 08:42 Dose: 600 mg Heparin Sodium (Porcine) (Heparin Sod 5,000 Unit/0.5 Ml Vial) 5,000 units SQ Q8 [facility] Stop: 10/09/23 21:59 Last Admin: 09/11/23 05:55 Dose: 5,000 units Hydralazine HCl (Hydralazine Hcl 20 Mg/Ml Vial) 5 mg IV Q6H PRN PRN Reason: SBP greater than 180 Stop: 10/09/23 18:09 Last Admin: 09/10/23 07:28 Dose: 5 mg Hydralazine HCl (Hydralazine Hcl 25 Mg Tab) 25 mg PO TID [facility] Stop: 10/10/23 13:59 Last Admin: 09/11/23 08:42 Dose: 25 mg Doxycycline Hyclate 100 mg/ (Dextrose) 100 mls @ 50 mls/hr IV Q12H [facility] Stop: 09/16/23 17:59 Last Infusion: 09/11/23 08:44 Dose: Infused Magnesium Sulfate/Dextrose (Magnesium Sulfate / D5w) 1 gm in 100 mls @ 50 mls/hr IV ONE ONE Stop: 09/11/23 15:24 Insulin Aspart (Insulin Aspart Per Unit Charge) 0 units SC ACHS [facility] Stop: 10/09/23 18:15 Last Admin: 09/11/23 12:08 Dose: Not Given Insulin Glargine (Lantus Per Unit Charge) 0 - 8 units SQ BID [facility] Stop: 10/09/23 20:59 Last Admin: 09/11/23 08:43 Dose: 5 units Melatonin (Melatonin 3 Mg Tab) 3 mg PO HS PRN PRN Reason: Sleep Stop: 10/10/23 01:42 Last Admin: 09/10/23 20:51 Dose: 3 mg Miscellaneous (Carbohydrates For Hypoglycemia ) 15 - 30 gm PO UD PRN PRN Reason: Hypoglycemia Protocol Stop: 10/09/23 18:11 Ondansetron HCl (Ondansetron Inj 2 Mg/Ml 2 Ml Vial) 4 mg IV Q6H PRN PRN Reason: Nausea Stop: 10/09/23 19:13 Oxybutynin Chloride (Oxybutynin Chloride 5 Mg Tab) 5 mg PO QAM [facility] Stop: 10/10/23 08:59 Last Admin: 09/11/23 08:42 Dose: 5 mg Polyethylene Glycol (Polyethylene (Miralax) 17 Gm Pack) 17 gm PO DAILY PRN PRN Reason: Constipation Stop: 10/09/23 19:13 Rosuvastatin Calcium (Rosuvastatin Calcium 10 Mg Tab) 10 mg PO QPM [facility] Stop: 10/09/23 20:59 Last Admin: 09/10/23 20:54 Dose: 10 mg Tramadol HCl (Tramadol Hcl 50 Mg Tablet) 50 mg PO Q6H PRN PRN Reason: Mod-Sev Pain (Scale 4-10) Stop: 10/10/23 20:37 Last Admin: 09/11/23 09:49 Dose: 50 mg Vitamin D (Cholecalciferol 125 Mcg (5,000 Units) Tab) 125 mcg PO DAILY [facility] Stop: 10/10/23 08:59 Last Admin: 09/11/23 08:42 Dose: 125 mcg (1) Pneumonia Laterality: bilateral Lung location: unspecified part of lung Pneumonia type: due to unspecified organism Qualified Code(s): J18.9 - Pneumonia, unspecified organism
[2023-09-11] MEDS: POTASSIUM CHLORIDE CRTAB 20 MEQ TABCR PO STA (14:45)
[2023-09-11] MEDS: MAGNESIUM SULFATE / D5W 1 GM/100 ML BAG IV ONE (14:45)
[2023-09-11] MEDS ORDERED: amLODIPine BESYLATE 5 MG TAB PO SCH (21:00)
[2023-09-12 06:10] LABS: Hematocrit (blood only) 29.2 % (37.0-47.0); Hemoglobin 9.4 g/dl (12.0-16.0); Mean Corpuscular Hemoglobin 28.7 pg (25.0-34.0); Mean Corpuscular Hgb Conc 32.2 g/dL (32.0-36.0); Mean Platelet Volume 8.7 fL (9.4-12.4); Platelet Count 452 K/uL (130-400); RDW Standard Deviation 45.2 fL (36.4-46.3); Red Blood Count 3.28 M/uL (4.20-5.40)
[2023-09-12 06:30] LABS: BUN Creatinine Ratio 12.8 (10-20); Calcium 8.7 mg/dl (8.6-10.3); Creatinine Clr Calc Pharmacy 14.6 ml/min; Est GFR (African American) 15.7 ml/min; Est GFR (Non-African American) 13.5 ml/min; Phosphorus 4.6 mg/dl (2.5-4.9); Potassium 4.3 mmol/L (3.5-5.1)
[2023-09-12] MEDS: amLODIPine BESYLATE 5 MG TAB PO SCH (09:06)
--- NOTE | 2023-09-12 10:47 | Nephrology Progress Note ---
Date of Service September 12, 2023 Assessment & Plan Admission and Anticipated Discharge Date Admission Date: September 09, 2023 Subjective Assessment & Plan (1) Acute kidney injury superimposed on CKD: baseline creat about 2 making her CKD 4. Now with KAVITA likely pre renal /hemodynamic related with Acute illness of Pneumonia. Creat today is slightly higher than yesterday. Will hold Losartan for now. Creat slowly rising even now. PO intake is marginal so will give her NS at 80 ml/hr for 1000 ml. . Will follow . No Dialysis. NO hydronephrosis on CT. Will follow with daily labs and I and O charting. Avoid NSAIDs, Contrast and nephrotoxic drugs for now Current abx is fine. She has multiple lesions on CT abdomen--will do renal US in few months. Not ready for discharge until we see creat peaked and plateaued. (2) Pneumonia: reviewed recent course of event. Now on RA. On Doxycycline which can be continued. (3) Hypertensive urgency: BP is currently high but given KAVITA would still stop Losartan for now. No Jayesh/ARB for now. raise hydralazine to 50 tid. S--no new issues. BP still somewhat high. on RA. However Creat continues to go up slowly. PHYSICAL EXAM: GENERAL: Patient is in no acute distress. HEENT: No acute trauma, normocephalic atraumatic, mucous membranes moist, no nasal congestion. NECK: No stridor, no adenopathy, no meningismus, trachea is midline. LUNGS: Crackles at the right base, no wheezing or respiratory distress. HEART: Without murmurs gallops or rubs, regular rate and rhythm. ABDOMEN: Soft, nontender, no peritonitis. EXTREMITIES: No cyanosis, full range of motion of all the joints without pain or difficulty. NEUROLOGIC: Oriented x 3, no acute motor or sensory deficits, no focal weakness. SKIN: No jaundice, no diaphoresis. Results & Data Vital Signs (Past 12 Hours) Vital Signs Temp Pulse Pulse Resp BP Pulse Ox O2 Del Method 09/12/23 07:59 Room Air 09/12/23 07:20 36.6 C 84 15 164/76 H 94 Room Air 09/12/23 03:15 36.6 C 85 18 167/79 H 95 Room Air 09/11/23 23:06 88
[2023-09-12] MEDS: SODIUM CHLORIDE 0.9% 1,000 ML IV SCH (10:58)
--- NOTE | 2023-09-12 11:40 | Hospitalist Progress Note ---
Date of Service September 12, 2023 Assessment & Plan (1) Pneumonia: Plan: Pt is a 73 yo F with type 2 diabetes, dyslipidemia, BMI of 40, CKD stage IV, major depressive disorder, vertigo and other medical problems listed below who presents with ongoing shortness of breath x 2 weeks with pneumonia diagnosed in outpatient setting that has failed outpatient treatment. Cough and congestion x 3 weeks Started on Augmentin 09/01, azythromycin added 09/06, continues to feel fatigued with cough Afebrile, WBC 12K, procal neg, resp viral panel negative, MRSA swab negative CT abd/pelvis with scattered bilateral airspace opacities most pronounced within the left lower lobe. This favors a mild atypical/viral pneumonitis. 3-[address] follow-up recommended to ensure resolution Continue cefepime, doxy Mucinex BID, flutter valve (2) Acute kidney injury superimposed on CKD: Plan: Cr 3.35 (baseline ~ 2.0) Recent outpatient UA from 09/05 with >300 mg/dl protein, trace blood. Albumin/Cr ratio 2,270, Protein/Cr ratio 4,057 Hold telmisartan Follows with Dr. Tovar in clinic Nephrology consulted - She has multiple lesions on CT abdomen--will do renal US in few months. Cr initially improved, but unfortunately now up at 3.2 Per nephrology - will give gentle IVF . Not ready for discharge until we see creat peaked and plateaued. cont. to monitor BMP (3) Hypertensive urgency: Plan: BP now somewhat improved Cont. home amlodipine 5mg started hydralazine po TID scheduled, increase to 50 TID home telmisartan on hold d/t kavita IV hydralazine prn Continue to monitor closely nephrology following (4) Elevated troponin: Plan: Troponin 94.8 -> 90 ->82 Likely 2/2 elevated BP as above, CKD 2D echo obtained -no regional wall motion abnormalities noted. LV systolic function is normal. LVEF 60 to 65%. There is moderate mitral annular calcification. Grade 1 diastolic dysfunction. (5) Type 2 diabetes mellitus: Plan: A1c 7.6 Hold home agents Basal/bolus insulin while in-patient BSG AC HS (6) Depression: Plan: Continue fluoxetine DVT Ppx: SQ heparin Code status: FULL PCP: Martin Dispo: med/ tele Admission and Anticipated Discharge Date Admission Date: September 09, 2023 Subjective Pt seen in follow up of pna, KAVITA on CKD, hypertension Currently pt is sitting up in chair in NAD, pt's daughter is present at the bedside. Also met w/ CM at the bedside. Pt denies any fever, chills, chest pain, shortness of breath at rest. Reports shortness of breath on exertion ongoing for some time per pt. some cough, no significant sputum production. reports hip pain (chronic- been seen by ortho outpt) Pt and daughter also mention that per PCP - pt lost significant amount of weight - however pt does not feel her clothes feel different and daughter is not quite sure either - recommend to obtain scale at home as pt currently does not have one. That way pt can monitor her weight objectively. She will need to further follow up with pcp regarding this. Nephrology consulted and discussed with - cont. po hydralazine, no TALISHA/ARB. will give IVF as Cr up again. Review of Systems Review of Systems: All systems reviewed & are unremarkable except as noted in Subjective Physical Exam Physical Exam: GENERAL: WD/WN F in NAD, on RA HEENT: normocephalic, atraumatic NECK: supple LUNGS: no respiratory distress., CTAB, minimal rhonchi at bases, no wheezing HEART: rrr, no murmur ABDOMEN: Soft, obese, nontender EXTREMITIES: No LE edema, moves extremities NEUROLOGIC: awake, alert, oriented, answers appropriately, moving SKIN: warm, dry Results & Data Results & Data Vital Signs (Past 12 Hours) Vital Signs Temp Pulse Resp BP BP Pulse Ox O2 Del Method 09/12/23 11:05 37.0 C 70 15 136/75 94 Room Air 09/12/23 07:59 Room Air 09/12/23 07:20 36.6 C 84 15 164/76 H 94 Room Air 09/12/23 03:15 36.6 C 85 18 167/79 H 95 Room Air Laboratory Results 09/12/23 09/12/23 09/11/23 Range/Units 08:01 05:37 20:27 WBC 11.50 H (4.8-10.8) K/ul RBC 3.28 L (4.20-5.40) M/uL Hgb 9.4 L (12.0-16.0) g/dl Hct 29.2 L (37.0-47.0) % MCV 89.0 (80.0-100.0) fL MCH 28.7 (25.0-34.0) pg MCHC 32.2 (32.0-36.0) g/dL RDW Std Deviation 45.2 (36.4-46.3) fL RDW Coeff of Aure 14.0 (11.5-14.5) % Plt Count 452 H (130-400) K/uL MPV 8.7 L (9.4-12.4) fL Sodium 134 L (136-145) mmol/L Potassium 4.3 D (3.5-5.1) mmol/L Chloride 104 (98-107) mmol/L Carbon Dioxide 22 (21-32) mmol/L Anion Gap 8 (3-11) BUN 41 H (6-23) mg/dl Creatinine 3.21 H (0.6-1.2) mg/dl Est Cr Clr Drug Dosing 14.6 ml/min Est GFR ( Amer) 15.7 ml/min Est GFR (Non-Af Amer) 13.5 ml/min BUN/Creatinine Ratio 12.8 (10-20) Glucose 109 H (70-99(Fasting)) mg/dl POC Glucose 131 H 176 H (70-99) mg/dl Calcium 8.7 (8.6-10.3) mg/dl Phosphorus 4.6 (2.5-4.9) mg/dl Magnesium 2.0 (1.7-2.4) mg/dl Procalcitonin 0.22 (0-0.5) ng/ml 09/11/23 Range/Units 16:15 WBC (4.8-10.8) K/ul RBC (4.20-5.40) M/uL Hgb (12.0-16.0) g/dl Hct (37.0-47.0) % MCV (80.0-100.0) fL MCH (25.0-34.0) pg MCHC (32.0-36.0) g/dL RDW Std Deviation (36.4-46.3) fL RDW Coeff of Aure (11.5-14.5) % Plt Count (130-400) K/uL MPV (9.4-12.4) fL Sodium (136-145) mmol/L Potassium (3.5-5.1) mmol/L Chloride (98-107) mmol/L Carbon Dioxide (21-32) mmol/L Anion Gap (3-11) BUN (6-23) mg/dl Creatinine (0.6-1.2) mg/dl Est Cr Clr Drug Dosing ml/min Est GFR ( Amer) ml/min Est GFR (Non-Af Amer) ml/min BUN/Creatinine Ratio (10-20) Glucose (70-99(Fasting)) mg/dl POC Glucose 159 H (70-99) mg/dl Calcium (8.6-10.3) mg/dl Phosphorus (2.5-4.9) mg/dl Magnesium (1.7-2.4) mg/dl Procalcitonin (0-0.5) ng/ml Medications Administered Current Inpatient Medications Acetaminophen (Acetaminophen 325 Mg Tab) 650 mg PO Q4H PRN PRN Reason: Pain or Fever Stop: 10/09/23 19:13 Last Admin: 09/10/23 01:33 Dose: 650 mg Amlodipine Besylate (Amlodipine Besylate 5 Mg Tab) 5 mg PO DAILY [facility] Stop: 10/12/23 08:59 Last Admin: 09/12/23 09:06 Dose: 5 mg Aspirin (Aspirin 81 Mg Ectab) 81 mg PO QAM [facility] Stop: 10/10/23 08:59 Last Admin: 09/12/23 09:07 Dose: 81 mg Cyanocobalamin (Cyanocobalamin (B-12) 500 Mcg Tablet) 500 mcg PO QAM [facility] Stop: 10/10/23 08:59 Last Admin: 09/12/23 09:07 Dose: 500 mcg Dextrose (Dextrose 50% 50 Ml Syringe) 25 - 50 ml IV UD PRN; Protocol PRN Reason: Hypoglycemia Protocol Stop: 10/09/23 18:11 Fluoxetine HCl (Fluoxetine Hcl 20 Mg Cap) 40 mg PO QAM [facility] Stop: 10/10/23 08:59 Last Admin: 09/12/23 09:06 Dose: 40 mg Fluticasone Propionate (Fluticasone Propionate Na Spr 16 Gm Btl) 2 sprays NOÉ DAILY [facility] Stop: 10/10/23 08:59 Last Admin: 09/12/23 09:07 Dose: 2 sprays Gabapentin (Gabapentin 300 Mg Cap) 300 mg PO BID [facility] Stop: 10/09/23 20:59 Last Admin: 09/12/23 09:06 Dose: 300 mg Glucagon (Glucagon For Inj 1 Mg Vial) 1 mg SQ UD PRN; Protocol PRN Reason: Hypoglycemia Protocol Stop: 10/09/23 18:11 Glucose (Glucose 40% Gel 15 Gm Tube) 15 - 30 gm PO UD PRN; Protocol PRN Reason: Hypoglycemia Protocol Stop: 10/09/23 18:11 Glucose (Glucose 10 Tab/Tube) 4 - 8 tab PO UD PRN; Protocol PRN Reason: Hypoglycemia Treatment Stop: 10/09/23 18:11 Guaifenesin (Guaifenesin 600 Mg Tabcr) 600 mg PO Q12 [facility] Stop: 10/09/23 17:24 Last Admin: 09/12/23 09:06 Dose: 600 mg Heparin Sodium (Porcine) (Heparin Sod 5,000 Unit/0.5 Ml Vial) 5,000 units SQ Q8 [facility] Stop: 10/09/23 21:59 Last Admin: 09/12/23 05:36 Dose: 5,000 units Hydralazine HCl (Hydralazine Hcl 20 Mg/Ml Vial) 5 mg IV Q6H PRN PRN Reason: SBP greater than 180 Stop: 10/09/23 18:09 Last Admin: 09/10/23 07:28 Dose: 5 mg Hydralazine HCl (Hydralazine Tab 50 Mg Tab) 50 mg PO TID [facility] Stop: 10/12/23 13:59 Doxycycline Hyclate 100 mg/ (Dextrose) 100 mls @ 50 mls/hr IV Q12H [facility] Stop: 09/16/23 17:59 Last Infusion: 09/12/23 07:40 Dose: Infused Sodium Chloride (Nss) 1,000 mls @ 80 mls/hr IV .[id number] [facility] Stop: 10/12/23 10:44 Last Admin: 09/12/23 10:58 Dose: 80 mls/hr Insulin Aspart (Insulin Aspart Per Unit Charge) 0 units SC ACHS [facility] Stop: 10/09/23 18:15 Last Admin: 09/12/23 09:04 Dose: 7 units Insulin Glargine (Lantus Per Unit Charge) 0 - 8 units SQ BID [facility] Stop: 10/09/23 20:59 Last Admin: 09/12/23 09:05 Dose: 5 units Melatonin (Melatonin 3 Mg Tab) 3 mg PO HS PRN PRN Reason: Sleep Stop: 10/10/23 01:42 Last Admin: 09/10/23 20:51 Dose: 3 mg Miscellaneous (Carbohydrates For Hypoglycemia ) 15 - 30 gm PO UD PRN PRN Reason: Hypoglycemia Protocol Stop: 10/09/23 18:11 Ondansetron HCl (Ondansetron Inj 2 Mg/Ml 2 Ml Vial) 4 mg IV Q6H PRN PRN Reason: Nausea Stop: 10/09/23 19:13 Oxybutynin Chloride (Oxybutynin Chloride 5 Mg Tab) 5 mg PO QAM [facility] Stop: 10/10/23 08:59 Last Admin: 09/12/23 09:07 Dose: 5 mg Polyethylene Glycol (Polyethylene (Miralax) 17 Gm Pack) 17 gm PO DAILY PRN PRN Reason: Constipation Stop: 10/09/23 19:13 Rosuvastatin Calcium (Rosuvastatin Calcium 10 Mg Tab) 10 mg PO QPM [facility] Stop: 10/09/23 20:59 Last Admin: 09/11/23 20:50 Dose: 10 mg Tramadol HCl (Tramadol Hcl 50 Mg Tablet) 50 mg PO Q6H PRN PRN Reason: Mod-Sev Pain (Scale 4-10) Stop: 10/10/23 20:37 Last Admin: 09/12/23 09:05 Dose: 50 mg Vitamin D (Cholecalciferol 125 Mcg (5,000 Units) Tab) 125 mcg PO DAILY [facility] Stop: 10/10/23 08:59 Last Admin: 09/12/23 09:07 Dose: 125 mcg (1) Pneumonia Laterality: bilateral Lung location: unspecified part of lung Pneumonia type: due to unspecified organism Qualified Code(s): J18.9 - Pneumonia, unspecified organism
[2023-09-12] MEDS: hydrALAZINE TAB 50 MG TAB PO SCH (13:33)
[2023-09-13 07:36] LABS: Hematocrit (blood only) 28.3 % (37.0-47.0); Hemoglobin 9.1 g/dl (12.0-16.0); Mean Corpuscular Hemoglobin 29.2 pg (25.0-34.0); Mean Corpuscular Hgb Conc 32.2 g/dL (32.0-36.0); Mean Corpuscular Volume 90.7 fL (80.0-100.0); Mean Platelet Volume 8.8 fL (9.4-12.4); Platelet Count 423 K/uL (130-400); RDW Coefficient of Variation 14.9 % (11.5-14.5); RDW Standard Deviation 49.3 fL (36.4-46.3); Red Blood Count 3.12 M/uL (4.20-5.40); White Blood Count 12.81 K/ul (4.8-10.8)
[2023-09-13 07:49] LABS: BUN Creatinine Ratio 13.9 (10-20); Calcium 8.4 mg/dl (8.6-10.3); Creatinine Clr Calc Pharmacy 15.6 ml/min; Est GFR (African American) 14.3 ml/min; Est GFR (Non-African American) 12.4 ml/min; Phosphorus 4.9 mg/dl (2.5-4.9); Potassium 4.4 mmol/L (3.5-5.1)
--- NOTE | 2023-09-13 10:06 | Nephrology Progress Note ---
Date of Service September 13, 2023 Assessment & Plan Admission and Anticipated Discharge Date Admission Date: September 09, 2023 Subjective Assessment & Plan (1) Acute kidney injury superimposed on CKD: baseline creat about 2 making her CKD 4. Now with KAVITA likely ATN related with Acute illness of Pneumonia. Creat today is slightly higher than yesterday. Creat slowly rising even now even after giving her 1 liter of NS Will follow . No Dialysis needed yet. However given creat still rising albeit slowly cannot rule out dialysis for sure. NO hydronephrosis on CT. Will follow with daily labs and I and O charting. Avoid NSAIDs, Contrast and nephrotoxic drugs for now Current abx is fine. She has multiple lesions on CT abdomen--will do renal US in few months. Not ready for discharge until we see creat peaked and plateaued. Creat does not have to get back to baseline though. repeat UA today. (2) Pneumonia: reviewed recent course of event. Now on RA. On Doxycycline which can be continued. (3) Hypertensive urgency: BP is currently high but given KAVITA would still stop Losartan for now. No Jayesh/ARB for now. hydralazine to 50 tid. S-- complaining of some hip pain which is not totally new. BP still somewhat high. on RA. Starting to get little frustrated about not getting discharged. However Creat continues to go up slowly. however making lots of urine and no other symptoms otherwise PHYSICAL EXAM: GENERAL: Patient is in no acute distress. HEENT: No acute trauma, normocephalic atraumatic, mucous membranes moist, no nasal congestion. NECK: No stridor, no adenopathy, no meningismus, trachea is midline. LUNGS: Crackles at the right base, no wheezing or respiratory distress. HEART: Without murmurs gallops or rubs, regular rate and rhythm. ABDOMEN: Soft, nontender, no peritonitis. EXTREMITIES: No cyanosis, full range of motion of all the joints without pain or difficulty. NEUROLOGIC: Oriented x 3, no acute motor or sensory deficits, no focal weakness. SKIN: No jaundice, no diaphoresis. Results & Data Vital Signs (Past 12 Hours) Vital Signs Temp Pulse Pulse Resp BP Pulse Ox O2 Del Method 09/13/23 07:29 80 09/13/23 07:19 36.8 C 84 14 166/82 H 94 Room Air 09/13/23 02:54 36.5 C 89 18 145/75 H 94 Room Air 09/12/23 23:19 36.8 C 86 20 177/79 H 97 Room Air
[2023-09-13 13:53] LABS: Appearance Urine Clear (Clear); Bacteria Urine Automated None Seen (None Seen); Bilirubin Urine Negative (Negative); Blood Urine Negative (Negative); Color Urine Yellow; Epithelial Cell Urine Auto 0-2 /hpf (0-2); Glucose Urine UA Negative (Negative); Ketones Urine Negative (Negative); Leukocyte Esterase Urine Negative (Negative); Nitrite Urine Negative (Negative); Protein Urine 3+ (Negative); RBC Urine Automated 0-2 /hpf (0-2); Specific Gravity Urine 1.017 (1.000-1.030); Urobilinogen Urine Negative (Negative); WBC Urine Automated 0-5 /hpf (0-5); pH Urine 5.5 (4.5-7.5)
--- NOTE | 2023-09-13 15:09 | Hospitalist Progress Note ---
Date of Service September 13, 2023 Assessment & Plan (1) Pneumonia: (2) Acute kidney injury superimposed on CKD: (3) Hypertensive urgency: (4) Elevated troponin: (5) Type 2 diabetes mellitus: (6) Depression: Plan 73-year-old female with history of diabetes, hyperlipidemia, CKD, depression, who presented to ED with ongoing shortness of breath for 2 weeks with failed outpatient treatment for pneumonia. Community-acquired pneumonia- CT chest with scattered bilateral airspace opacities most pronounced within the left lower lobe consistent with PNA- improving with empiric antibiotics. Will continue. 3-[address] follow-up recommended to ensure resolution. KAVITA on CKD, likely due to ATN- Cr not plateaued yet. No HDN or obstruction, Nephro following. Avoid nephrotoxics. Recheck in am. No need for HD. Renal lesions- CT A/P with multiple bilateral renal hypo and hyperdense lesions are noted. These are incompletely characterized on this noncontrast study. These may represent a combination of simple and hyperdense cysts. However, a solid renal mass would be impossible to exclude on this noncontrast study. Therefore, follow-up nonemergent renal ultrasound recommended for further evaluation. Renal US ordered DM-2- on insulin, will adjust as indicated HTN- on HLZ, amlodipine DVT ppx- sc heparin Dispo- Pending stabilization in renal function Updated daughter at bedside Time spent- approx 35 mins Admission and Anticipated Discharge Date Admission Date: September 09, 2023 Subjective Patient was seen and examined at bedside. Discussed about her rising creatinine and nephrology recommendations. Cough somewhat improved. No fever, chills, chest pain or shortness of breath, No new issues.. Review of Systems Review of Systems: All systems reviewed & are unremarkable except as noted in Subjective Physical Exam Physical Exam: General: Lying comfortably in bed, not in distress, on room air HEENT: EOMI, KOREY, MMM Chest: Clear breath sounds bilaterally, no wheezes or crackles CVS: Regular rate and rhythm, normal heart sounds, no murmur Abdomen: Soft, non tender, not distended, normal bowel sounds Neuro: Awake, alert, oriented, conversing well, non focal Extremities: Mild pedal edema Results & Data Results & Data Vital Signs (Past 12 Hours) Vital Signs Temp Pulse Pulse Resp BP BP Pulse Ox 05/29/24 11:11 36.5 C 76 16 132/72 93 09/13/23 11:11 09/13/23 07:29 80 09/13/23 07:19 36.8 C 84 14 166/82 H 94 O2 Del Method 09/13/23 11:11 Room Air 09/13/23 11:11 Room Air 09/13/23 07:29 09/13/23 07:19 Room Air Laboratory Results Short CBC 09/13/23 Range/Units 06:53 WBC 12.81 H (4.8-10.8) K/ul Hgb 9.1 L (12.0-16.0) g/dl Hct 28.3 L (37.0-47.0) % Plt Count 423 H (130-400) K/uL BMP 09/13/23 06:53 Sodium 133 L Potassium 4.4 Chloride 105 Carbon Dioxide 21 BUN 48 H Creatinine 3.46 H Glucose 111 H Calcium 8.4 L Urine 09/13/23 Range/Units Unknown Urine Color Yellow Urine Appearance Clear (Clear) Urine pH 5.5 (4.5-7.5) Ur Specific [place] 1.017 (1.000-1.030) Urine Protein 3+ H (Negative) Urine Glucose (UA) Negative (Negative) (1) Pneumonia Laterality: bilateral Lung location: unspecified part of lung Pneumonia type: due to unspecified organism Qualified Code(s): J18.9 - Pneumonia, unspecified organism
[2023-09-14 06:27] LABS: BUN Creatinine Ratio 14.8 (10-20); Calcium 8.5 mg/dl (8.6-10.3); Creatinine Clr Calc Pharmacy 16.2 ml/min; Est GFR (African American) 14.8 ml/min; Est GFR (Non-African American) 12.8 ml/min; Potassium 4.5 mmol/L (3.5-5.1)
[2023-09-14 06:30] LABS: Hematocrit (blood only) 24.3 % (37.0-47.0); Hemoglobin 7.8 g/dl (12.0-16.0); Mean Corpuscular Hemoglobin 28.7 pg (25.0-34.0); Mean Corpuscular Hgb Conc 32.1 g/dL (32.0-36.0); Mean Corpuscular Volume 89.3 fL (80.0-100.0); Mean Platelet Volume 8.8 fL (9.4-12.4); Platelet Count 364 K/uL (130-400); RDW Coefficient of Variation 15.1 % (11.5-14.5); RDW Standard Deviation 48.8 fL (36.4-46.3); Red Blood Count 2.72 M/uL (4.20-5.40)
--- NOTE | 2023-09-14 10:56 | Ultrasound Report ---
RENAL ULTRASOUND HISTORY: abnormal CT A/p- rec'd renal U/S to r/o solid mass COMPARISON: Abdomen and pelvis CT 09/09/2023. FINDINGS: Right kidney: 11.0 cm. Multiple scattered cysts with the largest measuring 3.7 cm. No definite solid renal masses. The patient's right renal stone is not well visualized by this modality. No hydronephro sis. Normal corticomedullary differentiation and cortical thickness. Left kidney: 11.4 cm. Multiple cysts measuring up to 5.1 cm. No definite renal masses. No hydronephro sis. Normal corticomedullary differentiation and cortical thickness. Bladder: Decompressed and not well evaluated. The ureteral jets were not identified. IMPRESSION: Multiple bilateral renal cysts. No definite solid renal masses. ACT 112: Negative or not required by law. Electronically signed by: Mitchel Anna M.D. 09/14/2023 10:55 AM
--- NOTE | 2023-09-14 13:13 | Hospitalist Progress Note ---
Date of Service September 14, 2023 Assessment & Plan (1) Pneumonia: (2) Acute kidney injury superimposed on CKD: (3) Hypertensive urgency: (4) Elevated troponin: (5) Type 2 diabetes mellitus: (6) Depression: Plan 73-year-old female with history of diabetes, hyperlipidemia, CKD, depression, who presented to ED with ongoing shortness of breath for 2 weeks with failed outpatient treatment for pneumonia. Community-acquired pneumonia- CT chest with scattered bilateral airspace opacities most pronounced within the left lower lobe consistent with PNA- improving with empiric antibiotics. Will continue. 3-[address] follow-up recommended to ensure resolution. KAVITA on CKD, likely due to ATN- Cr plateaued at 3.46 and now trending down to 3.37 today. No HDN or obstruction, Nephro following- recommended 1 more night to see renal function tomorrow to ensure it is actually downtrending in right direction. Avoid nephrotoxics. Recheck in am. No need for HD. Renal lesions- CT A/P noted and recommended renal ultrasound.Renal ultrasound with multiple bilateral renal cysts but no definite solid renal masses. DM-2- on insulin, will adjust as indicated HTN- on HLZ, amlodipine. BP still elevated, amlodipine uptitrated to 5 mg bid. DVT ppx- sc heparin Dispo- Cr plateaued, will recheck again in am. Patient can be discharged tomorrow Updated daughter at bedside Time spent- approx 35 mins Admission and Anticipated Discharge Date Admission Date: September 09, 2023 Subjective Patient was seen and examined at bedside. She feels fine. Discussed the downtrending creatinine. Swelling about the same. States she was weak when working with therapy and they recommended rehab. She is not happy that she has to stay another night. Physical Exam Physical Exam: General: Lying comfortably in bed, not in distress, on room air HEENT: EOMI, KOREY, MMM Chest: Clear breath sounds bilaterally, no wheezes or crackles CVS: Regular rate and rhythm, normal heart sounds, no murmur Abdomen: Soft, non tender, not distended, normal bowel sounds Neuro: Awake, alert, oriented, conversing well, non focal Extremities: Mild pedal edema Results & Data Results & Data Vital Signs (Past 12 Hours) Vital Signs Temp Pulse Pulse Resp BP BP Pulse Ox 09/14/23 11:50 36.6 C 78 20 152/75 H 96 09/14/23 10:38 09/14/23 08:25 36.6 C 78 18 168/76 H 93 09/14/23 07:07 89 09/14/23 05:07 36.7 C 94 H 20 164/76 H 94 O2 Del Method 09/14/23 11:50 Room Air 09/14/23 10:38 Room Air 09/14/23 08:25 Room Air 09/14/23 07:07 09/14/23 05:07 Room Air Laboratory Results Short CBC 09/14/23 Range/Units 05:48 WBC 11.70 H (4.8-10.8) K/ul Hgb 7.8 L (12.0-16.0) g/dl Hct 24.3 L (37.0-47.0) % Plt Count 364 (130-400) K/uL BMP 09/14/23 05:48 Sodium 132 L Potassium 4.5 Chloride 105 Carbon Dioxide 20 L BUN 50 H Creatinine 3.37 H Glucose 100 H Calcium 8.5 L Urine 09/13/23 Range/Units Unknown Urine Color Yellow Urine Appearance Clear (Clear) Urine pH 5.5 (4.5-7.5) Ur Specific [place] 1.017 (1.000-1.030) Urine Protein 3+ H (Negative) Urine Glucose (UA) Negative (Negative) (1) Pneumonia Laterality: bilateral Lung location: unspecified part of lung Pneumonia type: due to unspecified organism Qualified Code(s): J18.9 - Pneumonia, unspecified organism
--- NOTE | 2023-09-14 14:14 | Nephrology Progress Note ---
Date of Service September 14, 2023 Assessment & Plan Admission and Anticipated Discharge Date Admission Date: September 09, 2023 Subjective Assessment & Plan (1) Acute kidney injury superimposed on CKD: baseline creat about 2 making her CKD 4. Now with KAVITA likely ATN related with Acute illness of Pneumonia. Creat today is slightly higher than yesterday. Creat today is down a bit from yesterday. this is a good sign. So hopefully KAVITA has peaked. Will follow one more day to make sure she is for sure improving. NO hydronephrosis on CT. Will follow with daily labs and I and O charting. Avoid NSAIDs, Contrast and nephrotoxic drugs for now Current abx is fine. She has multiple lesions on CT abdomen--will do renal US in few months. 1 Appt next week. Will be called for Monday Next week. Have renal panel done On monday 2 No ARB at discharge. Instead send her on Hydralazine 50 tid 3 C/o edema and Some SOB so will do CXR x 2 view and give lasix 40 iv if pulm congestion. (2) Pneumonia: reviewed recent course of event. Now on RA. On Doxycycline which can be continued. (3) Hypertensive urgency: BP is currently high but given KAVITA would still stop Losartan for now. No Jayesh/ARB for now. hydralazine to 50 tid. S-- complaining of some increased edema and SOB. Also has hip pain which is not totally new. BP still somewhat high. on RA. Making lots of urine and no other symptoms otherwise PHYSICAL EXAM: GENERAL: Patient is in no acute distress. HEENT: No acute trauma, normocephalic atraumatic, mucous membranes moist, no nasal congestion. NECK: No stridor, no adenopathy, no meningismus, trachea is midline. LUNGS: Crackles at the right base, no wheezing or respiratory distress. HEART: Without murmurs gallops or rubs, regular rate and rhythm. ABDOMEN: Soft, nontender, no peritonitis. EXTREMITIES: No cyanosis, full range of motion of all the joints without pain or difficulty. NEUROLOGIC: Oriented x 3, no acute motor or sensory deficits, no focal weakness. SKIN: No jaundice, no diaphoresis. Results & Data Vital Signs (Past 12 Hours) Vital Signs Temp Pulse Pulse Resp BP BP Pulse Ox 09/14/23 11:50 36.6 C 78 20 152/75 H 96 09/14/23 10:38 09/14/23 08:25 36.6 C 78 18 168/76 H 93 09/14/23 07:07 89 09/14/23 05:07 36.7 C 94 H 20 164/76 H 94 O2 Del Method 09/14/23 11:50 Room Air 09/14/23 10:38 Room Air 09/14/23 08:25 Room Air 09/14/23 07:07 09/14/23 05:07 Room Air
--- NOTE | 2023-09-14 15:43 | XRay Report ---
XR chest 2V PA/lateral CLINICAL HISTORY: SOB with edema and ARF COMPARISON STUDY: Chest radiograph and chest CT September 09, 2023. FINDINGS: Lung volumes are normal. There is no pneumothorax or pleural effusion. Cardiomegaly is unch anged. There is no evidence for pulmonary edema. Subtle interstitial thickening within the lower lung s corresponds to airspace opacities on CT of September 09, 2023. IMPRESSION: 1. Cardiomegaly. No radiographic evidence for pulmonary edema. 2. Subtle lower lung interstitial thickening which corresponds to airspace opacities on CT of September 09, 2023 and suggest an infectious etiology. ACT 112: Negative or not required by law. Electronically signed by: Berlin Aguayo M.D. 09/14/2023 3:42 PM
[2023-09-14] MEDS: amLODIPine BESYLATE 5 MG TAB PO SCH (21:19)
[2023-09-15 07:23] LABS: Hematocrit (blood only) 25.6 % (37.0-47.0); Hemoglobin 8.2 g/dl (12.0-16.0); Mean Corpuscular Hemoglobin 29.1 pg (25.0-34.0); Mean Corpuscular Volume 90.8 fL (80.0-100.0); Mean Platelet Volume 8.9 fL (9.4-12.4); Platelet Count 355 K/uL (130-400); RDW Standard Deviation 49.9 fL (36.4-46.3); Red Blood Count 2.82 M/uL (4.20-5.40); White Blood Count 12.88 K/ul (4.8-10.8)
[2023-09-15 07:56] LABS: BUN Creatinine Ratio 14.9 (10-20); Calcium 8.7 mg/dl (8.6-10.3); Creatinine Clr Calc Pharmacy 16.8 ml/min; Est GFR (African American) 15.3 ml/min; Est GFR (Non-African American) 13.2 ml/min; Potassium 4.8 mmol/L (3.5-5.1)
[2023-09-15 08:02] VITALS: RESP 18
[2023-09-15] MEDS ORDERED: cloNIDine HCL 0.1 MG TAB PO SCH (09:15)
--- NOTE | 2023-09-15 09:15 | Nephrology Progress Note ---
Date of Service September 15, 2023 Assessment & Plan Admission and Anticipated Discharge Date Admission Date: September 09, 2023 Subjective Assessment & Plan (1) Acute kidney injury superimposed on CKD: baseline creat about 2 making her CKD 4. Now with KAVITA likely ATN related with Acute illness of Pneumonia. Creat today is slightly higher than yesterday. Creat today is further down a bit from yesterday. So KAVITA has peaked. NO hydronephrosis on CT. Will follow with daily labs and I and O charting. Avoid NSAIDs, Contrast and nephrotoxic drugs for now Current abx is fine. She has multiple lesions on CT abdomen--will do renal US in few months. 1 nephrology Appt next week. Will be called for Monday Next week. Have renal panel done On monday 2 No ARB at discharge. Instead send her on Hydralazine 100 tid 3 CXR x 2 view did not show pulm congestion. But given the Slowly Dropping na /high BP with KAVITA she almost certainly has some degree of Fluid retention. Will add torsemide 20 daily. this will help with BP and to raise na also. Discharge on this dose and will adjust further next week. (2) Pneumonia: reviewed recent course of event. Now on RA. On Doxycycline which can be continued. (3) Hypertensive urgency: BP is currently high but given KAVITA would still stop Losartan for now. No Jayesh/ARB for now. Raise hydralazine to 100 tid. S--complaining of some increased edema and SOB. Also has hip pain which is not totally new. BP still high. on RA. Making urine and no other symptoms otherwise PHYSICAL EXAM: GENERAL: Patient is in no acute distress. HEENT: No acute trauma, normocephalic atraumatic, mucous membranes moist, no nasal congestion. NECK: No stridor, no adenopathy, no meningismus, trachea is midline. LUNGS: Crackles at the right base, no wheezing or respiratory distress. HEART: Without murmurs gallops or rubs, regular rate and rhythm. ABDOMEN: Soft, nontender, no peritonitis. EXTREMITIES: No cyanosis, full range of motion of all the joints without pain or difficulty. NEUROLOGIC: Oriented x 3, no acute motor or sensory deficits, no focal weakness. SKIN: No jaundice, no diaphoresis. Results & Data Vital Signs (Past 12 Hours) Vital Signs Temp Pulse Pulse Resp BP Pulse Ox O2 Del Method 09/15/23 08:01 37.0 C 94 H 18 180/73 H 93 Room Air 09/15/23 03:54 36.8 C 94 H 20 169/77 H 92 Room Air 09/14/23 23:41 36.7 C 87 20 174/76 H 94 Room Air 09/14/23 21:58 85
[2023-09-15] MEDS: TORSEMIDE 20 MG TAB PO SCH (09:40)
[2023-09-15] MEDS: hydrALAZINE HCL 25 MG TAB PO SCH (09:59)
[2023-09-15] MEDS: ALBUT/IPRATROP 3MG/0.5MG NEB 3 ML VIAL NEB SCH (11:47)
[2023-09-15] MEDS: levoFLOXacin 750 MG TAB PO ONE (12:08)
[2023-09-15] MEDS: cefTRIAXone SODIUM 2,000 MG/50 ML BAG IV SCH (12:18)
[2023-09-15] MEDS: hydrALAZINE TAB 50 MG TAB PO SCH (14:03)
--- NOTE | 2023-09-15 14:54 | Discharge Summary ---
Date of Service September 15, 2023 Admission HPI Per Admitting Provider This is a 73-year-old female with PMH of type 2 diabetes, dyslipidemia, BMI of 40, CKD stage IV, major depressive disorder, vertigo and other medical problems listed below who presents with ongoing shortness of breath x 2 weeks. Had been having productive cough and generalized weakness as well is some wheezing. Was seen in PCP office on 09/01 with cough and cold symptoms and was started on a 10- day course of Augmentin. Outpatient chest x-ray from 09/01 showed left basilar airspace opacities. Was seen again by PCP on 09/07/2023 with continued cough as well as some confusion. Azithromycin was added for better atypical coverage. Patient was then noted to be confused and directed to come to ED for further evaluation. Daughter notes she is groggy. Also noting some pain in her back. Chronic hip pain over the past few months and was seen by ortho for a cortisone shot. Has followed with Dr. Tovar for nephrology back in Jan 2023 and is due to see again in September. Baseline Cr ~ 2. 1. No F/C, lightheadedness, CP, N/V, abd pain, dysuria, diarrhea or constipation. Admission Exam Per Admitting Provider Currently pt is laying in bed in [facility]. Pt's daughter is present at the bedside. Pt is awake, alert, able to answer simple questions appropriately. Lungs are CTAB, heart sounds regular, abdomen soft, obese, nontender to palp. No LE edema. Skin is warm and dry. Principal Diagnosis acute kidney injury on CKD 4, community-acquired pneumonia, Hypertensive urgency Discharge Exam General: Lying comfortably in bed, not in distress, on room air HEENT: EOMI, KOREY, MMM Chest: Clear breath sounds bilaterally, no wheezes or crackles CVS: Regular rate and rhythm, normal heart sounds, no murmur Abdomen: Soft, non tender, not distended, normal bowel sounds Neuro: Awake, alert, oriented, conversing well, non focal Extremities: Some edema of hands and feet noted Discharge Data Allergies Allergy/AdvReac Type Severity Reaction Status Date / Time No Known Allergies Allergy Verified 09/09/23 15:55 Consultations 09/09/23 17:36 Consult Nephrology Routine Ordered Studies 09/09/23 14:58 CT chest diagnostic wo con Stat 09/09/23 15:12 CT abd pelvis wo con Stat 09/14/23 US renal/blad retro comp Routine Laboratory Results WBC 12.88 K/ul (4.8-10.8) H 09/15/23 06:50 RBC 2.82 M/uL (4.20-5.40) L 09/15/23 06:50 Hgb 8.2 g/dl (12.0-16.0) L 09/15/23 06:50 Hct 25.6 % (37.0-47.0) L 09/15/23 06:50 MCV 90.8 fL (80.0-100.0) 09/15/23 06:50 MCH 29.1 pg (25.0-34.0) 09/15/23 06:50 MCHC 32.0 g/dL (32.0-36.0) 09/15/23 06:50 RDW Std Deviation 49.9 fL (36.4-46.3) H 09/15/23 06:50 RDW Coeff of Aure 15.0 % (11.5-14.5) H 09/15/23 06:50 Plt Count 355 K/uL (130-400) 09/15/23 06:50 MPV 8.9 fL (9.4-12.4) L 09/15/23 06:50 Immature Gran % (Auto) 1.3 % 09/09/23 14:09 Neut % (Auto) 82.7 % 09/09/23 14:09 Lymph % (Auto) 9.1 % 09/09/23 14:09 [place] % (Auto) 4.4 % 09/09/23 14:09 Eos % (Auto) 2.0 % 09/09/23 14:09 Baso % (Auto) 0.5 % 09/09/23 14:09 Neut # (Auto) 10.50 K/uL (1.40-6.50) H 09/09/23 14:09 Lymph # (Auto) 1.15 K/uL (1.20-3.40) L 09/09/23 14:09 [place] # (Auto) 0.56 K/uL (0.11-0.59) 09/09/23 14:09 Eos # (Auto) 0.25 K/uL (0.00-0.50) 09/09/23 14:09 Baso # (Auto) 0.06 K/uL (0.00-0.20) 09/09/23 14:09 Immature Gran # (Auto) 0.17 K/uL (0.01-0.20) 09/09/23 14:09 PT 10.4 Seconds (9.0-12.0) 09/09/23 14:09 INR 1.0 (0.9-1.1) 09/09/23 14:09 APTT 27 Seconds (21-31) 09/09/23 14:09 PTT Ratio 1.0 09/09/23 14:09 VBG pH 7.37 (7.36-7.41) 09/09/23 14:37 VBG pCO2 44 mmHg (38-50) 09/09/23 14:37 VBG pO2 42 mmHg 09/09/23 14:37 VBG HCO3 25 mmol/L 09/09/23 14:37 VBG O2 Saturation 79.5 % 09/09/23 14:37 VBG Base Excess -0.2 mEq/L 09/09/23 14:37 Sodium 132 mmol/L (136-145) L 09/15/23 06:50 Potassium 4.8 mmol/L (3.5-5.1) 09/15/23 06:50 Chloride 104 mmol/L (98-107) 09/15/23 06:50 Carbon Dioxide 20 mmol/L (21-32) L 09/15/23 06:50 Anion Gap 8 (3-11) 09/15/23 06:50 BUN 49 mg/dl (6-23) H 09/15/23 06:50 Creatinine 3.28 mg/dl (0.6-1.2) H 09/15/23 06:50 Est Cr Clr Drug Dosing 16.8 ml/min 09/15/23 06:50 Est GFR ( Amer) 15.3 ml/min 09/15/23 06:50 Est GFR (Non-Af Amer) 13.2 ml/min 09/15/23 06:50 BUN/Creatinine Ratio 14.9 (10-20) 09/15/23 06:50 Glucose 117 mg/dl (70-99(Fasting)) H 09/15/23 06:50 POC Glucose 104 mg/dl (70-99) H 09/15/23 12:12 Calcium 8.7 mg/dl (8.6-10.3) 09/15/23 06:50 Phosphorus 4.9 mg/dl (2.5-4.9) 09/13/23 06:53 Magnesium 2.0 mg/dl (1.7-2.4) 09/13/23 06:53 Total Bilirubin 0.2 mg/dl (0.2-1.0) 09/10/23 06:40 AST 28 U/L (13-39) 09/10/23 06:40 ALT 29 U/L (7-52) 09/10/23 06:40 Alkaline Phosphatase 159 U/L (34-104) H 09/10/23 06:40 Troponin I High Sens 82.2 pg/ml (0-14) H* 09/09/23 22:51 Total Protein 5.9 gm/dl (6.0-8.3) L 09/10/23 06:40 Albumin 2.7 gm/dl (3.4-5.0) L 09/10/23 06:40 Globulin 3.2 gm/dl (2.5-4.0) 09/10/23 06:40 Albumin/Globulin Ratio 0.8 (0.9-2) L 09/10/23 06:40 Procalcitonin 0.22 ng/ml (0-0.5) 09/12/23 05:37 Urine Color Yellow 09/13/23 Unknown Urine Appearance Clear (Clear) 09/13/23 Unknown Urine pH 5.5 (4.5-7.5) 09/13/23 Unknown Ur Specific [place] 1.017 (1.000-1.030) 09/13/23 Unknown Urine Protein 3+ (Negative) H 09/13/23 Unknown Urine Glucose (UA) Negative (Negative) 09/13/23 Unknown Urine Ketones Negative (Negative) 09/13/23 Unknown Urine Blood Negative (Negative) 09/13/23 Unknown Urine Nitrite Negative (Negative) 09/13/23 Unknown Urine Bilirubin Negative (Negative) 09/13/23 Unknown Urine Urobilinogen Negative (Negative) 09/13/23 Unknown Ur Leukocyte Esterase Negative (Negative) 09/13/23 Unknown Urine WBC (Auto) 0-5 /hpf (0-5) 09/13/23 Unknown Urine RBC (Auto) 0-2 /hpf (0-2) 09/13/23 Unknown U Hyaline Cast (Auto) 3-5 /lpf (0-2) H 09/13/23 Unknown U Epithel Cells (Auto) 0-2 /hpf (0-2) 09/13/23 Unknown Urine Bacteria (Auto) None Seen (None Seen) 09/13/23 Unknown Nasal Screen MRSA (PCR) Negative (Negative) 09/09/23 Unknown Adenovirus (PCR) Not Detected (NotDetected) 09/09/23 14:37 B. pertussis DNA (PCR) Not Detected (NotDetected) 09/09/23 14:37 B.parapertussis DNA PCR Not Detected (NotDetected) 09/09/23 14:37 C. pneumoniae DNA (PCR) Not Detected (NotDetected) 09/09/23 14:37 Coronavirus OC43 (PCR) Not Detected (NotDetected) 09/09/23 14:37 Coronavirus HKU1 (PCR) Not Detected (NotDetected) 09/09/23 14:37 Coronavirus 229E (PCR) Not Detected (NotDetected) 09/09/23 14:37 SARS-CoV-2 (PCR) Not Detected (NotDetected) 09/09/23 14:37 Coronavirus NL63 (PCR) Not Detected (NotDetected) 09/09/23 14:37 Human Metapneumovir PCR Not Detected (NotDetected) 09/09/23 14:37 Influenza Type A (PCR) Not Detected (NotDetected) 09/09/23 14:37 Influenza Type B (PCR) Not Detected (NotDetected) 09/09/23 14:37 M. pneumoniae (PCR) Not Detected (NotDetected) 09/09/23 14:37 Parainfluenza 1 (PCR) Not Detected (NotDetected) 09/09/23 14:37 Parainfluenza 2 (PCR) Not Detected (NotDetected) 09/09/23 14:37 Parainfluenza 3 (PCR) Not Detected (NotDetected) 09/09/23 14:37 Parainfluenza 4 (PCR) Not Detected (NotDetected) 09/09/23 14:37 RSV (PCR) Not Detected (NotDetected) 09/09/23 14:37 Entero/Rhino (PCR) Not Detected (NotDetected) 09/09/23 14:[address] 09/09/23 14:58 CT chest diagnostic wo con CT DOSE: 1486.66 mGy.cm HISTORY: Shortness of breath. TECHNIQUE: Multiaxial CT images of the chest were performed without contrast. A dose lowering technique was utilized adhering to the principles of ALARA. COMPARISON: None. FINDINGS: The central airways are patent. No pneumothorax. There is a trace left pleural effusion. There are small patchy airspace opacities within the bases of the bilateral lower lobes. This most pronounced within the left lower lobe. There are few additional scattered small groundglass and tree-in-bud nodular opacities within the lungs. Findings suggest a mild atypical/viral pneumonitis. Degenerative changes within the mid to lower thoracic spine. No acute fractures. The abdominal structures will be reported on the same day abdomen and pelvis CT. There is a small hiatus hernia. Otherwise, normal esophagus. The heart is normal in size. No pericardial effusion. No mediastinal or hilar lymphadenopathy. Mild calcified plaque within the normal caliber thoracic aorta. There are mild to moderate coronary artery calcifications noted. IMPRESSION: 1. Scattered bilateral airspace opacities most pronounced within the left lower lobe. This favors a mild atypical/viral pneumonitis. 3-[address] follow- up recommended to ensure resolution. 2. Trace left pleural effusion. 3. Small hiatus hernia. ACT 112: Positive. There are findings on this exam that require communication between the performing entity and the patient following Patient Test Result Information Act ([place] Act 112) guidelines. Electronically signed by: Mitchel Anna M.D. 09/09/2023 4:09 PM Abdomen/Pelvis CT 09/09/23 15:[address] WITHOUT CONTRAST CT DOSE: HISTORY: high creat, poss obstruction TECHNIQUE: Multiaxial CT images of the abdomen and pelvis were performed without contrast. A dose lowering technique was utilized adhering to the principles of ALARA. COMPARISON STUDY: None. FINDINGS: The lung bases will be reported on the same day chest CT. No pneumoperitoneum. No pneumatosis. No acute fractures identified. There is a small hiatus hernia. There is a tiny fat-containing umbilical hernia. The unenhanced liver, gallbladder, and spleen are unremarkable. There are few p unctate calcifications within the pancreas. No CT evidence for acute pancreatitis. Mild nodular thickening of the adrenal glands. Calcified plaque within the normal caliber abdominal aorta. There is a 4 mm stone within the lower pole of the right kidney. No left renal calculi. No ureteral calculi. No hydronephrosis. Multiple bilateral renal hypo and hyperdense lesions are noted. These are incompletely characterized on this noncontrast study. These may represent a combination of simple and hyperdense cysts. However, a solid renal mass would be impossible to exclude on this noncontrast study. Dominant left renal lesion measures 5.5 cm. Dominant right renal lesion measures 4.1 cm. No retroperitoneal or pelvic lymphadenopathy. No pelvic free fluid. Normal bladder. Prior hysterectomy. Suboptimal evaluation for bowel pathology due to the lack of intravenous and oral contrast. However, there is no definite bowel wall thickening or obstruction. Colonic diverticulosis. No evidence for acute div erticulitis. Normal appendix. IMPRESSION: 1. Right-sided nephrolithiasis. No ureteral stones. No hydronephrosis. 2. No definite bowel wall thickening or obstruction. 3. Colonic diverticulosis. No evidence for acute diverticulitis. 4. The lung bases will be reported on the same day chest CT. 5. Multiple bilateral renal hypo and hyperdense lesions are noted. These are incompletely characterized on this noncontrast study. These may represent a combination of simple and hyperdense cysts. However, a solid renal mass would be impossible to exclude on this noncontrast study. Therefore, follow-up nonemergent renal ultrasound recommended for further evaluation. 6. Additional findings as described above. ACT 112: Positive. There are findings on this exam that require communication between the performing entity and the patient following Patient Test Result [place] Act [place] Act 112) guidelines. Electronically signed by: Mitchel Anna M.D. 09/09/2023 4:16 PM Renal Ultrasound 09/14/23 00:00 RENAL ULTRASOUND HISTORY: abnormal CT A/p- rec'd renal U/S to r/o solid mass COMPARISON: Abdomen and pelvis CT 09/09/2023. FINDINGS: Right kidney: 11.0 cm. Multiple scattered cysts with the largest measuring 3.7 cm. No definite solid renal masses. The patient's right renal stone is not well visualized by this modality. No hydronephrosis. Normal corticomedullary differentiation and cortical thickness. Left kidney: 11.4 cm. Multiple cysts measuring up to 5.1 cm. No definite renal masses. No hydronephrosis. Normal corticomedullary differentiation and cortical thickness. Bladder: Decompressed and not well evaluated. The ureteral jets were not identified. IMPRESSION: Multiple bilateral renal cysts. No definite solid renal masses. ACT 112: Negative or not required by law. Electronically signed by: Mitchel Anna M.D. 09/14/2023 10:55 AM Chest X-Ray 09/14/23 14:39 XR chest 2V PA/lateral CLINICAL HISTORY: SOB with edema and ARF COMPARISON STUDY: Chest radiograph and chest CT September 09, 2023. FINDINGS: Lung volumes are normal. There is no pneumothorax or pleural effusion. Cardiomegaly is unchanged. There is no evidence for pulmonary edema. Subtle interstitial thickening within the lower lungs corresponds to airspace opacities on CT of September 09, 2023. IMPRESSION: 1. Cardiomegaly. No radiographic evidence for pulmonary edema. 2. Subtle lower lung interstitial thickening which corresponds to airspace opacities on CT of September 09, 2023 and suggest an infectious etiology. ACT 112: Negative or not required by law. Electronically signed by: Berlin Aguayo M.D. 09/14/2023 3:42 PM Hospital Course (1) Pneumonia: (2) Acute kidney injury superimposed on CKD: (3) Hypertensive urgency: (4) Elevated troponin: (5) Type 2 diabetes mellitus: (6) Depression: Plan 73-year-old female with history of diabetes, hyperlipidemia, CKD, depression, who presented to ED with ongoing shortness of breath for 2 weeks with failed outpatient treatment for pneumonia. She was managed for the following conditions in-house. Community-acquired pneumonia- CT chest with scattered bilateral airspace opacities most pronounced within the left lower lobe consistent with PNA- she was treated with OP augmentin but still symptomatic. She did receive a dose of cefepime in ED and has been on doxy but she still has persistent symptoms. Mild leukocytosis, blood and sputum culture negative. Started on levaquin renally dosed- 750 mg today, then 500 mg every 48 hrs for a week course. recommended 3-[address] follow-up to ensure resolution. follow-up with PCP for the same. Acute kidney injury on CKD4, likely due to ATN- Cr plateaued at 3.46 and now trending down to 3.37->3.28 today. No HDN or obstruction, discussed with nephrology- okay for discharge with outpatient labs for monitoring. Discontinued home telmisartan. Renal lesions- CT A/P noted and recommended renal ultrasound.Renal ultrasound with multiple bilateral renal cysts but no definite solid renal masses. DM-2- blood sugar well-controlled on decreased dose of insulin in setting of renal dysfunction. Further management per rehab physician. Hypertensive urgency- discussed with nephrology. Home telmisartan discontinued and uptitrated antihypertensive medications- continue amlodipine, hydralazine, torsemide. Further management per rear-facing/nephrology. Total Time Total Time Spent Total Time Spent (In Minutes): 35 Discharge Plan Discharge Items Patient Disposition: Transfer Inpatient Rehab Fac Reason For Visit: PNA, FAILED OP TREATMENT, KAVITA ON CKD Discharge Diagnosis: KAVITA on CKD, Hypertensive urgency, CAP with failed OP treatment Condition on Discharge: Fair Activity: Resume your previous activity Non-emergency contact: Primary Care Provider and Control Electrician Call non-emergency contact if: you have any medication questions, your symptoms worsen and you have a fever Follow-up/Referrals: Ghaad Salazar MD [Primary Care Provider] - Diet: Low Sodium (2gm) Addtl Attending Provider Instructions: Continue levaquin 500 mg every 48 hours starting on 09/16 for 3 doses for your pneumonia Stop losartan. Start on torsemide, hydralazine and amlodipine as prescribed Follow up with the kidney doctors with the blood work Pending Studies at Discharge: No Stand-Alone Forms: My [facility] Skilled Items Patient informed of condition?: Yes DNR: No Discharge Level of Care: Acute rehab Communicable Disease: No Discharge Prognosis: Stable Lines: None Urinary Catheter: No Medications and DC Order Prescriptions: New torsemide 20 mg Tablet 20 mg PO QAM Qty: 10 0RF hydralazine 50 mg Tablet 100 mg PO TID Qty: 90 0RF guaifenesin [Mucinex] 600 mg Tablet Extended Release 12hr 600 mg PO Q12 Qty: 10 0RF levofloxacin 500 mg tablet 500 mg PO Q48H 5 Days Qty: 3 0RF Rx Instructions: Start taking on 09/17/23 Continued aspirin 81 mg Tablet,Delayed Release (Dr/Ec) 81 mg PO QAM cyanocobalamin (vitamin B-12) [Vitamin B-12] 500 mcg Tablet 500 mcg PO QAM fluoxetine 40 mg capsule 40 mg PO QAM acetaminophen [Tylenol] 325 mg Tablet 325 mg PO Q6H PRN (Reason: Pain) omega-3 fatty acids 1,000 mg Capsule 1,000 mg PO QAM oxybutynin chloride 5 mg tablet 5 mg PO QAM fluticasone propionate 50 mcg/actuation [place],Suspension 2 spray INTRANASAL DAILY Rx Instructions: administer into each nostril rosuvastatin 10 mg tablet 10 mg PO QPM cholecalciferol (vitamin D3) [Vitamin D3] 125 mcg (5,000 unit) Tablet 125 mcg PO DAILY Changed gabapentin 600 mg tablet 300 mg PO BID Qty: 0 0RF amlodipine 5 mg tablet 5 mg PO BID Qty: 0 0RF insulin lispro [Humalog KwikPen Insulin] 100 unit/mL insulin pen 5 unit SUBCUT TIDM Qty: 0 0RF insulin glargine U-300 conc [Toujeo Max U-300 SoloStar] 300 unit/mL (3 mL) insulin pen 10 unit SUBCUT QAM Qty: 0 0RF Discontinued azithromycin 250 mg tablet 250 mg PO DAILY Rx Instructions: STARTED 09/07/23 FOR 5 DAYS. telmisartan 80 mg tablet 80 mg PO QAM amoxicillin-pot clavulanate 500-125 mg tablet 1 tab PO BID Rx Instructions: STARTED 09/02/23 FOR 10 DAYS Discharge Orders: Discharge Order (Routine); Ordered 09/15/23 Ordered By: Wesley Yang Admission Data Admit Date/Time: 09/09/23 17:29 Attending Provider: Wesley Yang Admit Provider: Gerry Pittman Primary Care Provider: Ghada Salazar Other Providers: Juan Tovar; [facility]; [facility],Referral Center; [facility]
[2023-09-15 16:52] VITALS: BP 162/69; TEMP 98.1; O2SAT 95
[2023-09-15] MEDS: ONDANSETRON INJ 2 MG/ML 2 ML VIAL IV PRN (17:49)
[2023-09-15 18:42] VITALS: PULSE 88
== END 2023-09-15 19:15 | DRG 193 ==
LOC: ED 13:49 → 2E 17:29 → SUATTDRO 17:29 → 2E 18:33 → 2N 09-11 18:11

== ENCOUNTER 2023-09-20 17:28 | Inpatient (IN) ==
[2023-09-20 18:27] LABS: Basophils # (auto) 0.05 K/uL (0.00-0.20); Basophils % (auto) 0.6 %; Eosinophils # (auto) 0.11 K/uL (0.00-0.50); Eosinophils % (auto) 1.3 %; Hematocrit (blood only) 25.6 % (37.0-47.0); Hemoglobin 8.2 g/dl (12.0-16.0); Immature Granulocytes # (auto) 0.07 K/uL (0.01-0.20); Immature Granulocytes % (auto) 0.8 %; Lymphocytes # (auto) 0.89 K/uL (1.20-3.40); Lymphocytes % (auto) 10.6 %; Mean Corpuscular Hemoglobin 29.3 pg (25.0-34.0); Mean Corpuscular Volume 91.4 fL (80.0-100.0); Mean Platelet Volume 9.1 fL (9.4-12.4); Monocytes % (auto) 7.1 %; Neutrophils # (auto) 6.71 K/uL (1.40-6.50); Neutrophils % (auto) 79.6 %; Platelet Count 357 K/uL (130-400); RDW Coefficient of Variation 15.1 % (11.5-14.5); RDW Standard Deviation 50.4 fL (36.4-46.3); White Blood Count 8.43 K/ul (4.8-10.8)
--- NOTE | 2023-09-20 18:29 | XRay Report ---
XR chest 1V portable HISTORY: 73 years-old Female confusion acutely altered mental status COMPARISON: 09/14/2023 TECHNIQUE: AP view of the chest FINDINGS: Cardiac silhouette is enlarged. Mild subsegmental left basilar densities, likely atelectatic. No pneu mothorax, large pleural effusion or overt pulmonary edema. Bones of the chest appear grossly intact. IMPRESSION: Cardiomegaly without acute process. ACT 112: Negative or not required by law. The above report was generated using voice recognition software. It may contain grammatical, syntax o r spelling errors. Electronically signed by: Wander Donohue M.D. 09/20/2023 6:28 PM
--- NOTE | 2023-09-20 18:33 | Emergency Department Note ---
Impression & Plan Acute confusion, Acute kidney injury superimposed on chronic kidney disease, Acute uremia, Non-ST elevation ND (NSTEMI), Acidosis ED Provider Note HISTORY OF PRESENT ILLNESS: Patient is a 73-year-old female presenting with shortness of breath and confusion. History obtained mainly from daughter. Daughter reports that the patient has been at [facility] for the last 5 days. Reports over the last 5 days, the patient's kidney function on her daily labs has been getting slightly worse. She states that over the last 5 days the patient has been getting progressively more lethargic and confused. Reports that today the patient has been conversant, but then falls asleep immediately. She does not normally wear any supplemental oxygen. She was recently admitted to the hospital with pneumonia and had an KAVITA and then was discharged to [facility]. Patient denies any chest pain. Denies any abdominal pain, nausea or vomiting. She does report she still making urine. Daughter reports that they had a follow-up appointment with the mva still operator today and were referred to the emergency department, given patient's worsening renal function and her worsening mental status changes. Daughter reports that they had talked about getting potentially admitted for initiation of dialysis if necessary. ROS: as above PHYSICAL EXAM: Constitutional: Patient appears in no acute distress. HENT: Head: Normocephalic and atraumatic. Eyes: EOMI, PERRL Mouth/Throat: Mucous membranes moist. Neck: Trachea midline. Neck supple. Cardiovascular: RRR, No murmurs, rubs or gallops. Intact distal pulses. Pulmonary/Chest: No respiratory distress. Breath sounds clear and equal bilaterally. No wheezes or rales. Abdominal: Abdomen soft, no tenderness, rebound or guarding. Musculoskeletal: No edema, tenderness or deformity noted. Skin: Warm and dry. No rash, erythema, pallor or cyanosis Psychiatric: Appropriate mood and affect for situation. Neurological: Alert and keenly responsive - patient does fall asleep while conversing with examiner. CN II-XII grossly intact, moving all extremities equally and fully. MDM: - Vitals signs stable. Saturations 93%, but patient placed on 2L NC by nursing staff - History obtained via patient's daughter, given patient's confusion. History as above. - Chronic conditions affecting care: DM-2; CKD; HTN - Differential diagnoses include, but are not limited to: uremia; CVA; intracranial hemorrhage; ACS; pneumonia; pulmonary edema; hypercarbia - Order placed for continuous cardiac monitoring. At this time, monitor showed rate of 85 bpm with normal sinus rhythm, per my interpretation. - External medical records reviewed. [facility] nephrology note dated 09/20/2023 was reviewed. Per their documentation, she is very somnolent and weak and is having myoclonic jerks. They note that they believe she has progressed to CKD 5 with uremic symptoms. They recommended she be sent to the emergency department for her diuretics and dialysis. - EKG interpreted by myself showed normal sinus rhythm. Rate 81 bpm. QT 380. No acute ischemic changes. - Laboratory workup interpreted by myself showed normal WBC; chronic anemia (Hgb 8.2); hyponatremia (Na 130); KAVITA on CKD (Cr 3.84 - was 3.28 six days ago); elevated BUN (58); normal glucose; normal lactate; normal liver function; elevated troponin (67.1); normal procalcitonin; normal TSH - VBG showed acidosis (pH 7.28) - CXR negative for pneumonia or pulmonary edema, per my interpretation - Viral respiratory panel negative - CT head wo contrast negative for acute intracranial hemorrhage, per my interpretation - Discussion was had with sample case porter about patient's case and need for admission - Hospitalist consulted for admission - Patient admitted to [facility] hospitalist service for further evaluation and management. ASSESSMENT AND PLAN: Diagnosis: acute confusion; acidosis; uremia; KAVITA on CKD; NSTEMI Plan: admit Past Med/Surg History Problem List Acidosis (Acute) Non-ST elevation ND (NSTEMI) (Acute) Acute uremia (Acute) Acute kidney injury superimposed on chronic kidney disease (Acute) Acute confusion (Acute) Hypertensive urgency Depression Type 2 diabetes mellitus Acute kidney injury superimposed on CKD Anemia (Acute) Elevated troponin (Acute) Failure of outpatient treatment (Acute) Pneumonia (Acute) Surgical History History of nasal surgery Family History Other Breast cancer No pertinent family history Social History (Reviewed 09/20/23 @ 19:52 by MAGALYS Cheung Smoking Status: Never smoker Second Hand Exposure: No; Do You Dip or Chew Tobacco: No; Hx Alcohol Use: No Hx Substance Use: No Preferred Language: Malay Communication Ability: Effective Mold Sprayer Required: No Beliefs That Will Affect Care: None Current Living Situation: Alone Current Living Situation Comment: Lives at home alone - has assitance with a home health aid and daughter Feels Safe at Home: Yes Assistive Devices: Glasses, Walker and Wheelchair Allergies Allergies Allergy/AdvReac Type Severity Reaction Status Date / Time No Known Allergies Allergy Verified 09/09/23 15:55 Home Meds Home Medications Medication Instructions Recorded Confirmed aspirin 81 mg tablet,delayed 81 mg PO QAM 03/13/19 09/09/23 release cyanocobalamin (vitamin B-12) 500 500 mcg PO QAM 03/13/19 09/09/23 mcg tablet (Vitamin B-12) acetaminophen 325 mg tablet 325 mg PO Q6H PRN Pain 09/09/23 09/09/23 (Tylenol) cholecalciferol (vitamin D3) 125 125 mcg PO DAILY 09/09/23 09/09/23 mcg (5,000 unit) tablet (Vitamin D3) fluoxetine 40 mg capsule 40 mg PO QAM 09/09/23 09/09/23 fluticasone propionate 50 2 spray intranasal DAILY 09/09/23 09/09/23 mcg/actuation nasal spray,suspension omega-3 fatty acids 1,000 mg 1,000 mg PO QAM 09/09/23 09/09/23 capsule oxybutynin chloride 5 mg tablet 5 mg PO QAM 09/09/23 09/09/23 rosuvastatin 10 mg tablet 10 mg PO QPM 09/09/23 09/09/23 Previous Rx's Medication Instructions Recorded amlodipine 5 mg tablet 5 mg PO BID #0 tabs 09/15/23 gabapentin 600 mg tablet 300 mg (1/2 x 600 mg) PO BID #0 09/15/23 tabs guaifenesin 600 mg tablet, 600 mg PO Q12 #10 tabs 09/15/23 extended release 12 hr (Mucinex) hydralazine 50 mg tablet 100 mg (2 x 50 mg) PO TID #90 tabs 09/15/23 insulin glargine U-300 conc 300 10 unit (0.0333 mL) subcut QAM #0 09/15/23 unit/mL (3 mL) subcutaneous pen mL (Toujeo Max U-300 SoloStar) insulin lispro 100 unit/mL 5 unit (0.05 mL) subcut TIDM #0 mL 09/15/23 subcutaneous pen (Humalog KwikPen (U-100) Insulin) levofloxacin 500 mg tablet 500 mg PO Q48H 5 days #3 tabs 09/15/23 torsemide 20 mg tablet 20 mg PO QAM #10 tabs 09/15/23 Results & Data (ED) Vital Signs Vital Signs - 24 hr 09/20/23 17:35 09/20/23 17:35 09/20/23 17:35 Temperature 36.6 C 36.6 C Temperature Source Oral Oral Pulse Rate 85 Pulse Rate [Apical] 85 Respiratory Rate 22 22 Blood Pressure 132/88 Blood Pressure [Right Arm] 132/88 Blood Pressure Mean 102 Blood Pressure Mean [Right Arm] 102 Pulse Oximetry 93 93 93 Oxygen Delivery Method Room Air Room Air Room Air Oxygen Flow Rate Sepsis Recent Fever Within 48 Hours No Sepsis New/Unexplained Change in Mental Status No Sepsis Action Taken by Nursing No Action Required 09/20/23 18:04 09/20/23 19:29 Temperature Temperature Source Pulse Rate 85 Pulse Rate [Apical] Respiratory Rate Blood Pressure Blood Pressure [Right Arm] Blood Pressure Mean Blood Pressure Mean [Right Arm] Pulse Oximetry 95 Oxygen Delivery Method Nasal Cannula Oxygen Flow Rate 2 Sepsis Recent Fever Within 48 Hours Sepsis New/Unexplained Change in Mental Status Sepsis Action Taken by Nursing Laboratory Data 09/20/23 17:45 09/20/23 17:45 Lab Results 09/20/23 09/20/23 09/20/23 Range/Units 17:45 18:08 18:32 WBC 8.43 (4.8-10.8) K/ul RBC 2.80 L (4.20-5.40) M/uL Hgb 8.2 L (12.0-16.0) g/dl Hct 25.6 L (37.0-47.0) % MCV 91.4 (80.0-100.0) fL MCH 29.3 (25.0-34.0) pg MCHC 32.0 (32.0-36.0) g/dL RDW Std Deviation 50.4 H (36.4-46.3) fL RDW Coeff of Aure 15.1 H (11.5-14.5) % Plt Count 357 (130-400) K/uL MPV 9.1 L (9.4-12.4) fL Immature Gran % (Auto) 0.8 % Neut % (Auto) 79.6 % Lymph % (Auto) 10.6 % [place] % (Auto) 7.1 % Eos % (Auto) 1.3 % Baso % (Auto) 0.6 % Neut # (Auto) 6.71 H (1.40-6.50) K/uL Lymph # (Auto) 0.89 L (1.20-3.40) K/uL [place] # (Auto) 0.60 H (0.11-0.59) K/uL Eos # (Auto) 0.11 (0.00-0.50) K/uL Baso # (Auto) 0.05 (0.00-0.20) K/uL Immature Gran # (Auto) 0.07 (0.01-0.20) K/uL PT Cancelled INR Cancelled VBG pH (7.36-7.41) VBG pCO2 (38-50) mmHg VBG pO2 mmHg VBG HCO3 mmol/L VBG O2 Saturation % VBG Base Excess mEq/L Sodium 130 L (136-145) mmol/L Potassium 4.3 (3.5-5.1) mmol/L Chloride 97 L (98-107) mmol/L Carbon Dioxide 22 (21-32) mmol/L Anion Gap 11 (3-11) BUN 58 H (6-23) mg/dl Creatinine 3.84 H (0.6-1.2) mg/dl Est Cr Clr Drug Dosing 14.5 ml/min Est GFR ( Amer) 12.6 ml/min Est GFR (Non-Af Amer) 10.9 ml/min BUN/Creatinine Ratio 15.1 (10-20) Glucose 105 H (70-99(Fasting)) mg/dl Lactate 0.5 (0.4-2.0) mmol/L Calcium 9.6 (8.6-10.3) mg/dl Magnesium 2.1 (1.7-2.4) mg/dl Total Bilirubin 0.3 (0.2-1.0) mg/dl AST 13 (13-39) U/L ALT 13 (7-52) U/L Alkaline Phosphatase 94 (34-104) U/L Troponin I High Sens 67.1 H* (0-14) pg/ml Total Protein 7.1 (6.0-8.3) gm/dl Albumin 3.7 (3.4-5.0) gm/dl Globulin 3.4 (2.5-4.0) gm/dl Albumin/Globulin Ratio 1.1 (0.9-2) Procalcitonin 0.16 (0-0.5) ng/ml TSH 1.682 (0.300-4.500) uIu/ml Adenovirus (PCR) Not Detected (NotDetected) B. pertussis DNA (PCR) Not Detected (NotDetected) B.parapertussis DNA PCR Not Detected (NotDetected) C. pneumoniae DNA (PCR) Not Detected (NotDetected) Coronavirus OC43 (PCR) Not Detected (NotDetected) Coronavirus HKU1 (PCR) Not Detected (NotDetected) Coronavirus 229E (PCR) Not Detected (NotDetected) SARS-CoV-2 (PCR) Not Detected (NotDetected) Coronavirus NL63 (PCR) Not Detected (NotDetected) Human Metapneumovir PCR Not Detected (NotDetected) Influenza Type A (PCR) Not Detected (NotDetected) Influenza Type B (PCR) Not Detected (NotDetected) M. pneumoniae (PCR) Not Detected (NotDetected) Parainfluenza 1 (PCR) Not Detected (NotDetected) Parainfluenza 2 (PCR) Not Detected (NotDetected) Parainfluenza 3 (PCR) Not Detected (NotDetected) Parainfluenza 4 (PCR) Not Detected (NotDetected) RSV (PCR) Not Detected (NotDetected) Entero/Rhino (PCR) Not Detected (NotDetected) 09/20/23 Range/Units 18:38 WBC (4.8-10.8) K/ul RBC (4.20-5.40) M/uL Hgb (12.0-16.0) g/dl Hct (37.0-47.0) % MCV (80.0-100.0) fL MCH (25.0-34.0) pg MCHC (32.0-36.0) g/dL RDW Std Deviation (36.4-46.3) fL RDW Coeff of Aure (11.5-14.5) % Plt Count (130-400) K/uL MPV (9.4-12.4) fL Immature Gran % (Auto) % Neut % (Auto) % Lymph % (Auto) % [place] % (Auto) % Eos % (Auto) % Baso % (Auto) % Neut # (Auto) (1.40-6.50) K/uL Lymph # (Auto) (1.20-3.40) K/uL [place] # (Auto) (0.11-0.59) K/uL Eos # (Auto) (0.00-0.50) K/uL Baso # (Auto) (0.00-0.20) K/uL Immature Gran # (Auto) (0.01-0.20) K/uL PT INR VBG pH 7.28 L (7.36-7.41) VBG pCO2 44 (38-50) mmHg VBG pO2 57 mmHg VBG HCO3 21 mmol/L VBG O2 Saturation 89.7 % VBG Base Excess -6.0 mEq/L Sodium (136-145) mmol/L Potassium (3.5-5.1) mmol/L Chloride (98-107) mmol/L Carbon Dioxide (21-32) mmol/L Anion Gap (3-11) BUN (6-23) mg/dl Creatinine (0.6-1.2) mg/dl Est Cr Clr Drug Dosing ml/min Est GFR ( Amer) ml/min Est GFR (Non-Af Amer) ml/min BUN/Creatinine Ratio (10-20) Glucose (70-99(Fasting)) mg/dl Lactate (0.4-2.0) mmol/L Calcium (8.6-10.3) mg/dl Magnesium (1.7-2.4) mg/dl Total Bilirubin (0.2-1.0) mg/dl AST (13-39) U/L ALT (7-52) U/L Alkaline Phosphatase (34-104) U/L Troponin I High Sens (0-14) pg/ml Total Protein (6.0-8.3) gm/dl Albumin (3.4-5.0) gm/dl Globulin (2.5-4.0) gm/dl Albumin/Globulin Ratio (0.9-2) Procalcitonin (0-0.5) ng/ml TSH (0.300-4.500) uIu/ml Adenovirus (PCR) (NotDetected) B. pertussis DNA (PCR) (NotDetected) B.parapertussis DNA PCR (NotDetected) C. pneumoniae DNA (PCR) (NotDetected) Coronavirus OC43 (PCR) (NotDetected) Coronavirus HKU1 (PCR) (NotDetected) Coronavirus 229E (PCR) (NotDetected) SARS-CoV-2 (PCR) (NotDetected) Coronavirus NL63 (PCR) (NotDetected) Human Metapneumovir PCR (NotDetected) Influenza Type A (PCR) (NotDetected) Influenza Type B (PCR) (NotDetected) M. pneumoniae (PCR) (NotDetected) Parainfluenza 1 (PCR) (NotDetected) Parainfluenza 2 (PCR) (NotDetected) Parainfluenza 3 (PCR) (NotDetected) Parainfluenza 4 (PCR) (NotDetected) RSV (PCR) (NotDetected) Entero/Rhino (PCR) (NotDetected) Imaging Data Radiologist's Impression: Chest X-Ray 09/20/23 17:59 XR chest 1V portable HISTORY: 73 years-old Female confusion acutely altered mental status COMPARISON: 09/14/2023 TECHNIQUE: AP view of the chest FINDINGS: Cardiac silhouette is enlarged. Mild subsegmental left basilar densities, likely atelectatic. No pneumothorax, large pleural effusion or overt pulmonary edema. Bones of the chest appear grossly intact. IMPRESSION: Cardiomegaly without acute process. ACT 112: Negative or not required by law. The above report was generated using voice recognition software. It may contain grammatical, syntax or spelling errors. Electronically signed by: Wander Donohue M.D. 09/20/2023 6:28 PM Discharge Plan Visit Data Chief Complaint: Confusion Stated Complaint: AMS ED Provider: Jodi Farmer Discharge Problem: Acute confusion, Acute kidney injury superimposed on chronic kidney disease, Acute uremia, Non-ST elevation ND (NSTEMI), Acidosis Forms Stand Alone Forms: [facility] Teachable Prescriptions Prescriptions: No Action aspirin 81 mg Tablet,Delayed Release (Dr/Ec) 81 mg PO QAM cyanocobalamin (vitamin B-12) [Vitamin B-12] 500 mcg Tablet 500 mcg PO QAM fluoxetine 40 mg capsule 40 mg PO QAM acetaminophen [Tylenol] 325 mg Tablet 325 mg PO Q6H PRN (Reason: Pain) omega-3 fatty acids 1,000 mg Capsule 1,000 mg PO QAM oxybutynin chloride 5 mg tablet 5 mg PO QAM fluticasone propionate 50 mcg/actuation [place],Suspension 2 spray INTRANASAL DAILY Rx Instructions: administer into each nostril rosuvastatin 10 mg tablet 10 mg PO QPM cholecalciferol (vitamin D3) [Vitamin D3] 125 mcg (5,000 unit) Tablet 125 mcg PO DAILY torsemide 20 mg Tablet 20 mg PO QAM Qty: 10 0RF hydralazine 50 mg Tablet 100 mg PO TID Qty: 90 0RF guaifenesin [Mucinex] 600 mg Tablet Extended Release 12hr 600 mg PO Q12 Qty: 10 0RF levofloxacin 500 mg tablet 500 mg PO Q48H 5 Days Qty: 3 0RF Rx Instructions: Start taking on 09/17/23 gabapentin 600 mg tablet 300 mg PO BID Qty: 0 0RF amlodipine 5 mg tablet 5 mg PO BID Qty: 0 0RF insulin lispro [Humalog KwikPen Insulin] 100 unit/mL insulin pen 5 unit SUBCUT TIDM Qty: 0 0RF insulin glargine U-300 conc [Toujeo Max U-300 SoloStar] 300 unit/mL (3 mL) insulin pen 10 unit SUBCUT QAM Qty: 0 0RF Referrals Referrals: Ghada Salazar MD [Primary Care Provider] -
[2023-09-20 18:45] LABS: Albumin Globulin Ratio 1.1 (0.9-2); Albumin Level 3.7 gm/dl (3.4-5.0); BUN Creatinine Ratio 15.1 (10-20); Bilirubin,Total 0.3 mg/dl (0.2-1.0); Calcium 9.6 mg/dl (8.6-10.3); Creatinine Clr Calc Pharmacy 14.5 ml/min; Est GFR (African American) 12.6 ml/min; Est GFR (Non-African American) 10.9 ml/min; Globulin 3.4 gm/dl (2.5-4.0); Magnesium 2.1 mg/dl (1.7-2.4); Potassium 4.3 mmol/L (3.5-5.1); Total Protein 7.1 gm/dl (6.0-8.3)
[2023-09-20 18:46] LABS: HCO3 VBG 21 mmol/L; Oxygen Saturation VBG 89.7 %; PCO2 VBG 44 mmHg (38-50); PO2 VBG 57 mmHg; pH VBG 7.28 (7.36-7.41)
[2023-09-20 18:57] LABS: Troponin I High Sensitivity 67.1 pg/ml (0-14)
[2023-09-20 19:01] LABS: Thyroid Stimulating Hormone 1.682 uIu/ml (0.300-4.500)
[2023-09-20 19:11] LABS: Adenovirus PCR Not Detected (NotDetected); Bordetella parapertussis PCR Not Detected (NotDetected); Bordetella pertussis PCR Not Detected (NotDetected); Chlamydia pneumoniae PCR Not Detected (NotDetected); Coronavirus 229E PCR Not Detected (NotDetected); Coronavirus CoV-2 (COVID19)PCR Not Detected (NotDetected); Coronavirus HKU1 PCR Not Detected (NotDetected); Coronavirus NL63 PCR Not Detected (NotDetected); Coronavirus OC43PCR Not Detected (NotDetected); Human Metapneumovirus PCR Not Detected (NotDetected); Influenza A PCR Not Detected (NotDetected); Influenza B PCR Not Detected (NotDetected); Mycoplasma pneumoniae PCR Not Detected (NotDetected); Parainfluenza Virus 1 PCR Not Detected (NotDetected); Parainfluenza Virus 2 PCR Not Detected (NotDetected); Parainfluenza Virus 3 PCR Not Detected (NotDetected); Parainfluenza Virus 4 PCR Not Detected (NotDetected); Respiratory Syncytial VirusPCR Not Detected (NotDetected); Rhinovirus/Enterovirus PCR Not Detected (NotDetected)
--- NOTE | 2023-09-20 19:53 | History & Physical Report ---
Date of Service September 20, 2023 Assessment & Plan (1) Acute kidney injury superimposed on chronic kidney disease: (2) Metabolic acidosis: (3) Acute uremia: (4) Acute confusion: (5) Type 2 diabetes mellitus: (6) Depression: (7) Anemia: Plan 73 y/o F presents from [facility] rehab where she was recently discharged from [facility] on 09/14 for treatment of pneumonia and worsening CKD. She was noted to become more lethargic and fatigued likely secondary to uremia/worsening kidney failure. Patient was recently started on torsemide 09/14. More recent CT during last admission CTAP did not reveal any hydronephrosis or obstructions. No added value with additional abdominal imaging at this time. Patient is lying flat in her hospital bed, eyes closed. Additional past medical history includes insulin-dependent type 2 diabetes, obesity, MDD, HLD and HTN. No leukocytosis, hyponatremic 130, worsening BUN/Creatinine 58/3.84 eGFR 10.6. Hgb 8.2; baseline 7.8-9.7. Head CT negative. CXR with cardiomegaly without acute CP process. Normal procalcitonin, normal TSH. ECG without ischemic changes. Most recent echo 09/09 EF 60 to 65% no wall motion abnormalities noted, mild MR and G1 DDx. Dialysis has been discussed briefly with the patients family as a future consideration. Patient will be admitted for further evaluation and management for continued work up for worsening KAVITA on CKD with metabolic acidosis with a diuretic challenge and Nephrology consultation for consideration of dialysis. Talley catheter placement for accurate I/O. Continue monitoring for AMS and any other infectious causes, likely secondary to uremia. KAVITA superimposed on CKD: Metabolic Acidosis: Chronic Creatinine 3.84, BUN 58; continues to increase. Last admission creatinine 3.35 but prior baseline was approximately 2 Follows with nephrology; Dr. Tovar Recently started on Torsemide on 09/14 Lasix 100mg IV Once per Nephro for diuresis challenge VBG indicates metabolic acidosis pH 7.28, CO2 44, HCO3 21 Nephrology consulted while inpatient is recommended; may require inpatient dialysis AMS: Likely secondary to uremia Head CT: negative Elevated troponin: Chronic Troponin 67.1; known elevated in the 90s Likely secondary to CKD Most recent ECHO 09/09: EF 60 to 65% no wall motion abnormalities noted, mild MR and G1 DDx. Anemia of Chronic Disease: Chronic Hgb: 8.2; baseline 7-9 No overt signs of bleeding Diabetes type 2: Chronic Most recent A1c Hold home agents and placed on SSI ACHS Glycemic pharmacy Depression: Chronic Takes fluoxetine; continue Disposition: PCP: Dr. Indy Salazar CODE STATUS: Full code DVT prophylaxis: Heparin SQ I spent a total of 85 minutes coordinating, documenting, and providing care for this patient excluding time spent in the performance of separately billed services. All of the aforementioned completed while collaborating with the assigned attending physician for a full treatment plan. Please see their addendum for further details. History of Present Illness Chief Complaint: AMS Primary Care Provider: Ghada Salazar MD Ms. Sauer is a 73 year old female [facility] she [facility] recently discharged from [facility] for treatment of pneumonia and worsening CKD. She was noted to become more lethargic and fatigued with worsening altered mental status which is suspected to be likely secondary to uremia/worsening kidney failure. Patient was recently started on torsemide 09/14. More recent CT during last admission CTAP did not reveal any hydronephrosis or obstructions. No added value with additional abdominal imaging at this time. Patient is lying flat in her hospital bed, eyes closed. Additional past medical history includes insulin-dependent type 2 diabetes, obesity, MDD, HLD and HTN Patietns daughter at bedside who stated that she has had more lethargy and fatigue; including increasing tiredness/less awakeness. She reports worsening swelling in her lower extremities. She has newly reported abdominal distension. She will have difficulty with word finding intermittently. In the ED, no leukocytosis, hyponatremic 130, worsening BUN/Creatinine 58/3.84 eGFR 10.6. Hgb 8.2; baseline 7.8-9.7. Head CT performed in the ED negative for ICH, SDH, midline shift. CXR with cardiomegaly without acute cardiopulmonary process. Normal procalcitonin, normal TSH. ECG without ischemic changes. Most recent echo 09/09 EF 60 to 65% no wall motion abnormalities noted, mild MR and G1 DDx. Patient daughter states that her AMS has been worsened. Appears to be uremic and her BUN/Creatinine continues to worsen. VBG did suggests metabolic acidosis. She does continue to make urine per family. Dialysis has been discussed briefly with the patients family as a future consideration. Patient will be admitted for further evaluation and management for continued work up for worsening KAVITA on CKD with metabolic acidosis with a diuretic challenge and Nephrology consultation for consideration of dialysis. Talley catheter placement for accurate I/O. Continue monitoring for AMS and any other infectious causes, likely secondary to uremia. Allergies Allergy/AdvReac Type Severity Reaction Status Date / Time No Known Allergies Allergy Verified 09/09/23 15:55 Home Medications Medication Instructions Recorded Confirmed Type aspirin 81 mg tablet,delayed 81 mg PO QAM 03/13/19 09/20/23 History release cyanocobalamin (vitamin B-12) 500 500 mcg PO QAM 03/13/19 09/20/23 History mcg tablet (Vitamin B-12) acetaminophen 325 mg tablet 325 mg PO Q6H PRN Pain 09/09/23 09/20/23 History (Tylenol) cholecalciferol (vitamin D3) 125 125 mcg PO DAILY 09/09/23 09/20/23 History mcg (5,000 unit) tablet (Vitamin D3) fluoxetine 40 mg capsule 40 mg PO QAM 09/09/23 09/20/23 History fluticasone propionate 50 2 spray intranasal DAILY 09/09/23 09/20/23 History mcg/actuation nasal spray,suspension omega-3 fatty acids 1,000 mg 1,000 mg PO QAM 09/09/23 09/20/23 History capsule oxybutynin chloride 5 mg tablet 5 mg PO QAM 09/09/23 09/20/23 History rosuvastatin 10 mg tablet 10 mg PO QPM 09/09/23 09/20/23 History amlodipine 5 mg tablet 5 mg PO BID #0 tabs 09/15/23 09/20/23 Rx gabapentin 600 mg tablet 300 mg (1/2 x 600 mg) PO BID #0 09/15/23 09/20/23 Rx tabs guaifenesin 600 mg tablet, 600 mg PO Q12 #10 tabs 09/15/23 09/20/23 Rx extended release 12 hr (Mucinex) hydralazine 50 mg tablet 100 mg (2 x 50 mg) PO TID #90 tabs 09/15/23 09/20/23 Rx insulin glargine U-300 conc 300 10 unit (0.0333 mL) subcut QAM #0 09/15/23 09/20/23 Rx unit/mL (3 mL) subcutaneous pen mL (Toujeo Max U-300 SoloStar) insulin lispro 100 unit/mL 5 unit (0.05 mL) subcut TIDM #0 mL 09/15/23 09/20/23 Rx subcutaneous pen (Humalog KwikPen (U-100) Insulin) levofloxacin 500 mg tablet 500 mg PO Q48H 5 days #3 tabs 09/15/23 09/20/23 Rx torsemide 20 mg tablet 20 mg PO QAM #10 tabs 09/15/23 09/20/23 Rx Past Med/Surg History Problem List (Updated 09/20/23 @ 20:31 by KAUR Cheung) Metabolic acidosis Non-ST elevation DE (NSTEMI) (Acute) Acute uremia (Acute) Acute kidney injury superimposed on chronic kidney disease (Acute) Acute confusion (Acute) Depression Type 2 diabetes mellitus Acute kidney injury superimposed on CKD Anemia (Acute) Elevated troponin (Acute) Failure of outpatient treatment (Acute) Pneumonia (Acute) Medical History (Updated 09/20/23 @ 20:31 by KAUR Cheung) Acidosis Hypertensive urgency Surgical History History of nasal surgery Family History Other Breast cancer No pertinent family history Social History Smoking Status: Never smoker Second Hand Exposure: No; Do You Dip or Chew Tobacco: No; Hx Alcohol Use: No Hx Substance Use: No Preferred Language: Prydein[place] Communication Ability: Effective [employer] Required: No Beliefs That Will Affect Care: None Current Living Situation: Alone Current Living Situation Comment: Lives at home alone - has assitance with a home health aid and daughter Feels Safe at Home: Yes Assistive Devices: Glasses, Walker and Wheelchair Review of Systems Review of Systems: Neuro: (-) Falls, trauma, slurred speech (+) fatigue HEENT: (-) RIVERA, dizziness, dysphagia, visual or auditory changes CV: (-) CP, palpitations, (+) worsening BL LE swelling Resp: (-) SOB GI: (-) appetite changes, N/V/D, bowel changes : (-) urinary changes Skin: (-) rashes Psych: (-) anxiety, depression Physical Exam Physical Exam: See. Dr. Osman's physical examination for further details. Results & Data Results & Data Vital Signs (Past 12 Hours) Vital Signs Temp Pulse Pulse Resp BP BP Pulse Ox 09/20/23 19:29 85 09/20/23 18:04 95 09/20/23 17:35 36.6 C 85 22 132/88 93 09/20/23 17:35 93 09/20/23 17:35 36.6 C 85 22 132/88 93 O2 Del Method O2 Flow Rate 09/20/23 19:29 09/20/23 18:04 Nasal Cannula 2 09/20/23 17:35 Room Air 09/20/23 17:35 Room Air 09/20/23 17:35 Room Air Laboratory Results Short CBC 09/20/23 Range/Units 17:45 WBC 8.43 (4.8-10.8) K/ul Hgb 8.2 L (12.0-16.0) g/dl Hct 25.6 L (37.0-47.0) % Plt Count 357 (130-400) K/uL BMP 09/20/23 17:45 Sodium 130 L Potassium 4.3 Chloride 97 L Carbon Dioxide 22 BUN 58 H Creatinine 3.84 H Glucose 105 H Calcium 9.6 Liver Function 09/20/23 Range/Units 17:45 Total Bilirubin 0.3 (0.2-1.0) mg/dl AST 13 (13-39) U/L ALT 13 (7-52) U/L Alkaline Phosphatase 94 (34-104) U/L Albumin 3.7 (3.4-5.0) gm/dl Diagnostic Findings Chest X-Ray 09/20/23 17:59 XR chest 1V portable HISTORY: 73 years-old Female confusion acutely altered mental status COMPARISON: 09/14/2023 TECHNIQUE: AP view of the chest FINDINGS: Cardiac silhouette is enlarged. Mild subsegmental left basilar densities, likely atelectatic. No pneumothorax, large pleural effusion or overt pulmonary edema. Bones of the chest appear grossly intact. IMPRESSION: Cardiomegaly without acute process. ACT 112: Negative or not required by law. The above report was generated using voice recognition software. It may contain grammatical, syntax or spelling errors. Electronically signed by: Wander Donohue M.D. 09/20/2023 6:28 PM Code Status & VTE Plan Code Status Full Code in the event of cardiac or respiratory arrest Supervising Physician Co-Signing Physician Notes I have seen and discussed the case with the collaborating advanced practitioner. I agree with the above H&P. I have reviewed and confirmed the patients medical history, the findings on physical examination, and the patients diagnosis and treatment plan with Moon DIETRICH and agree with the information documented. In short, Ms. Sauer is a 73 year old woman f type 2 diabetes, dyslipidemia, BMI of 40, CKD stage IV, and other conditions is admitted for acute encephalopathy with concern for uremia. Patient reports 3 days of worsening confusion, poor appetite and lethargy. Evaluated by Nephrology OP who recommended presenting to ED for admission. GENERAL APPEARANCE: AxOx3, lethargic no acute distress. HEENT: NC, AT. MMM. EOMI, clear conjunctiva, oropharynx clear. NECK: Supple without lymphadenopathy. No stiffness or restricted ROM. HEART: Normal rate and regular rhythm, normal S1/S1, IVETTE+ LUNGS: CTAB, moving air well. No crackles or wheezes are heard. ABDOMEN: Soft, protuberant abdomen, nontender EXTREMITIES: Without cyanosis, clubbing, 2+pitting edema BLE NEUROLOGICAL: Grossly nonfocal. Alert and oriented, moving all 4 extremities. CN not formally tested but appear grossly intact. Skin: Warm and dry without any rash. #Acute toxic metabolic encephalopathy, c/f uremia will obtain UA biofire negative TSH wnl and procal negative Delirium precautions #Acute on chronic renal failure, CKD IV #Nonanion gap metabolic acidosis #Hypervolemic Hyponatremia -on PO torsemide Discussed with Guy on TTx: IV lasix 100mg IV now Talley catheter in Strict I/O FR 2L repeat labs in am med/tele NPO midnight in case progression noted on labs and HD pursued rest of plan as above I spent a total of 35 minutes coordinating, documenting, and providing care for this patient excluding time spent in the performance of separately billed services. All of the aforementioned completed outside of collaborating with the assigned advanced practitioner for a full treatment plan. I have reviewed the advanced practitioner's documentation, and I agree with, and take responsibility for the plan of care (7) Anemia Anemia type: unspecified type Qualified Code(s): D64.9 - Anemia, unspecified
--- NOTE | 2023-09-20 19:58 | CT Scan Report ---
Exam(s): CT HEAD Without Contrast EXAM: CT Head Without Intravenous Contrast CLINICAL HISTORY: confusion; generalized weakness. TECHNIQUE: Axial computed tomography images of the head/brain without intravenous contrast. CTDI is 62.8 mGy and DLP is 1100.35 mGy-cm. Automated exposure control was utilized for the study. A dose lowering technique was utilized adhering to the principles of ALARA. COMPARISON: CT head without contrast 07/10/2022 FINDINGS: Brain: No intracranial hemorrhage. No significant mass effect. No alteration in appearance of the parenchyma when compared to the previous examination with the portable prominence of the cerebral sulci and sylvian fissures and mild periventricular deep white matter hypodense changes noted. Ventricles: No midline shift or ventriculomegaly. Bones/joints: Unremarkable. No acute fracture. Soft tissues: Unremarkable. Sinuses: Unremarkable as visualized. No acute sinusitis. Mastoid air cells: Unremarkable as visualized. No mastoid effusion. IMPRESSION: No acute intracranial process or significant alteration from the prior examination. Electronically signed by: Filemon Mathis MD 09/20/23 19:57 PM
[2023-09-20] MEDS: FUROSEMIDE 40 MG/4 ML VIAL IV ONE (20:10)
[2023-09-20 20:52] LABS: Appearance Urine Clear (Clear); Bilirubin Urine Negative (Negative); Blood Urine Negative (Negative); Color Urine Yellow; Epithelial Cell Urine Auto 0-2 /hpf (0-2); Glucose Urine UA Negative (Negative); Ketones Urine Negative (Negative); Leukocyte Esterase Urine Negative (Negative); Nitrite Urine Negative (Negative); Protein Urine 3+ (Negative); RBC Urine Automated 0-2 /hpf (0-2); Specific Gravity Urine 1.013 (1.000-1.030); Urobilinogen Urine Negative (Negative); WBC Urine Automated 0-5 /hpf (0-5)
[2023-09-20] MEDS ORDERED: CARBOHYDRATES FOR HYPOGLYCEMIA PO PRN (20:54)
[2023-09-20] MEDS ORDERED: DEXTROSE 50% 50 ML SYRINGE IV PRN (20:54)
[2023-09-20] MEDS ORDERED: GLUCOSE 10 TAB/TUBE PO PRN (20:54)
[2023-09-20] MEDS ORDERED: GLUCAGON FOR INJ 1 MG VIAL SQ PRN (20:54)
[2023-09-20] MEDS ORDERED: GLUCOSE 40% GEL 15 GM TUBE PO PRN (20:54)
[2023-09-20 21:07] LABS: Bacteria Urine Automated 1+ (None Seen)
[2023-09-20] MEDS: INSULIN ASPART PER UNIT CHARGE SC SCH (21:17)
[2023-09-20 21:18] LABS: Prothrombin Time 10.5 Seconds (9.0-12.0)
[2023-09-20] MEDS: ROSUVASTATIN CALCIUM 10 MG TAB PO SCH (21:58)
[2023-09-20] MEDS: GABAPENTIN 600 MG TAB PO SCH (21:59)
[2023-09-20] MEDS: amLODIPine BESYLATE 5 MG TAB PO SCH (21:59)
[2023-09-20] MEDS ORDERED: ONDANSETRON INJ 2 MG/ML 2 ML VIAL IV PRN (23:19)
[2023-09-20] MEDS ORDERED: POLYETHYLENE (MIRALAX) 17 GM PACK PO PRN (23:19)
[2023-09-21] MEDS: HEPARIN SOD 5,000 UNIT/0.5 ML VIAL SQ SCH (00:14)
[2023-09-21 07:03] LABS: Hematocrit (blood only) 23.4 % (37.0-47.0); Hemoglobin 7.5 g/dl (12.0-16.0); Mean Corpuscular Hemoglobin 29.2 pg (25.0-34.0); Mean Corpuscular Hgb Conc 32.1 g/dL (32.0-36.0); Mean Corpuscular Volume 91.1 fL (80.0-100.0); Mean Platelet Volume 9.1 fL (9.4-12.4); Platelet Count 289 K/uL (130-400); RDW Coefficient of Variation 15.3 % (11.5-14.5); RDW Standard Deviation 50.5 fL (36.4-46.3); Red Blood Count 2.57 M/uL (4.20-5.40); White Blood Count 9.53 K/ul (4.8-10.8)
[2023-09-21 07:26] LABS: Estimated Average Glucose 151 mg/dl; Hemoglobin A1C 6.9 % (4.5-5.6)
[2023-09-21 07:45] LABS: Calcium 8.7 mg/dl (8.6-10.3); Potassium 4.1 mmol/L (3.5-5.1)
[2023-09-21 07:51] LABS: BUN Creatinine Ratio 14.8 (10-20); Creatinine Clr Calc Pharmacy 13.9 ml/min; Est GFR (African American) 12.4 ml/min; Est GFR (Non-African American) 10.7 ml/min; Phosphorus 6.8 mg/dl (2.5-4.9)
[2023-09-21] MEDS ORDERED: oxyBUTYnin chloride 5 MG TAB PO SCH (09:00)
--- NOTE | 2023-09-21 09:27 | Hospitalist Progress Note ---
Date of Service September 21, 2023 Assessment & Plan (1) Acute kidney injury superimposed on chronic kidney disease: (2) Metabolic acidosis: (3) Acute uremia: (4) Acute confusion: (5) Type 2 diabetes mellitus: (6) Depression: (7) Anemia: Plan 73 y/o F presents from [facility] rehab where she was recently discharged from [facility] on 09/14 for treatment of pneumonia and worsening CKD. She was noted to become more lethargic and fatigued likely secondary to uremia/worsening kidney failure. Patient was recently started on torsemide 09/14. More recent CT during last admission CTAP did not reveal any hydronephrosis or obstructions. No added value with additional abdominal imaging at this time. Patient is lying flat in her hospital bed, eyes closed. Additional past medical history includes insulin-dependent type 2 diabetes, obesity, MDD, HLD and HTN. No leukocytosis, hyponatremic 130, worsening BUN/Creatinine 58/3.84 eGFR 10.6. Hgb 8.2; baseline 7.8-9.7. Head CT negative. CXR with cardiomegaly without acute CP process. Normal procalcitonin, normal TSH. ECG without ischemic changes. Most recent echo 09/09 EF 60 to 65% no wall motion abnormalities noted, mild MR and G1 DDx. Dialysis has been discussed briefly with the patients family as a future consideration. Patient will be admitted for further evaluation and management for continued work up for worsening KAVITA on CKD with metabolic acidosis with a diuretic challenge and Nephrology consultation for consideration of dialysis. Talley catheter placement for accurate I/O. Continue monitoring for AMS and any other infectious causes, likely secondary to uremia. KAVITA superimposed on CKD: Metabolic Acidosis: Chronic Creatinine 3.84, BUN 58; continues to increase. Last admission creatinine 3.35 but prior baseline was approximately 2 Follows with nephrology; Dr. Tovar Recently started on Torsemide on 09/14 Lasix 100mg IV Once per Nephro for diuresis challenge VBG indicates metabolic acidosis pH 7.28, CO2 44, HCO3 21 Nephrology consulted while inpatient is recommended; may require inpatient dialysis Discussed w/ nephrology mental status improved this AM, but worse this PM Plan to stop amlodipine, instead take torsemide + losartan Cont. to monitor AMS: Likely secondary to uremia Head CT: negative Elevated troponin: Chronic Troponin 67.1; known elevated in the 90s Likely secondary to CKD Most recent ECHO 09/09: EF 60 to 65% no wall motion abnormalities noted, mild MR and G1 DDx. Anemia of Chronic Disease: Chronic Hgb: 8.2; baseline 7-9 No overt signs of bleeding Diabetes type 2: Chronic Most recent A1c Hold home agents and placed on SSI ACHS Glycemic pharmacy Depression: Chronic Takes fluoxetine; continue Disposition: PCP: Dr. Indy Salazar CODE STATUS: Full code DVT prophylaxis: Heparin SQ Admission and Anticipated Discharge Date Admission Date: September 20, 2023 Subjective Pt seen in follow up of lethargy, KAVITA on CKD Sitting up in bed in NAD On suppl. O2 Awake and able to answer simple questions but often answers " I'm sorry ".. as she does not know.. Denies any fevers chills, chest pain, shortness of breath, abdominal pain, nausea vomiting Discussed with nephrology - as her mental status seemed better earlier in the day per senior software qa analyst Review of Systems Review of Systems: All systems reviewed & are unremarkable except as noted in Subjective Physical Exam Physical Exam: GENERAL: obese F in NAD HEENT: NC, AT. MMM. EOMI NECK: Supple HEART: Normal rate and regular rhythm, normal S1/S1, IVETTE+ LUNGS: CTAB, moving air well. No crackles or wheezes are heard. ABDOMEN: Soft, nontender, obese, + bowel sounds EXTREMITIES: + LE edema b/l NEUROLOGICAL: Awake but only able to answer some questions appropriately, speech fluent, moves extremities - says " I'm sorry... " to any question Skin: Warm and dry Results & Data Results & Data Vital Signs (Past 12 Hours) Vital Signs Temp Pulse Pulse Pulse Resp BP BP 09/21/23 08:18 36.4 C L 92 H 20 134/61 09/21/23 04:00 36.6 C 84 18 116/65 09/21/23 01:00 36.5 C 75 18 157/79 H 09/20/23 23:49 09/20/23 23:49 36.5 C 82 20 158/69 H 09/20/23 23:26 83 09/20/23 21:57 85 16 154/89 H Pulse Ox O2 Del Method O2 Flow Rate 09/21/23 08:18 95 Room Air 09/21/23 04:00 96 Nasal Cannula 2 09/21/23 01:00 98 Nasal Cannula 2 09/20/23 23:49 Nasal Cannula 2 09/20/23 23:49 97 Nasal Cannula 2 09/20/23 23:26 09/20/23 21:57 97 Nasal Cannula 2 Laboratory Results 09/21/23 09/21/23 09/20/23 Range/Units 08:00 06:33 21:16 WBC 9.53 (4.8-10.8) K/ul RBC 2.57 L (4.20-5.40) M/uL Hgb 7.5 L (12.0-16.0) g/dl Hct 23.4 L (37.0-47.0) % MCV 91.1 (80.0-100.0) fL MCH 29.2 (25.0-34.0) pg MCHC 32.1 (32.0-36.0) g/dL RDW Std Deviation 50.5 H (36.4-46.3) fL RDW Coeff of Aure 15.3 H (11.5-14.5) % Plt Count 289 (130-400) K/uL MPV 9.1 L (9.4-12.4) fL Immature Gran % (Auto) % Neut % (Auto) % Lymph % (Auto) % [place] % (Auto) % Eos % (Auto) % Baso % (Auto) % Neut # (Auto) (1.40-6.50) K/uL Lymph # (Auto) (1.20-3.40) K/uL [place] # (Auto) (0.11-0.59) K/uL Eos # (Auto) (0.00-0.50) K/uL Baso # (Auto) (0.00-0.20) K/uL Immature Gran # (Auto) (0.01-0.20) K/uL PT INR VBG pH (7.36-7.41) VBG pCO2 (38-50) mmHg VBG pO2 mmHg VBG HCO3 mmol/L VBG O2 Saturation % VBG Base Excess mEq/L Sodium 131 L (136-145) mmol/L Potassium 4.1 (3.5-5.1) mmol/L Chloride 99 (98-107) mmol/L Carbon Dioxide 22 (21-32) mmol/L Anion Gap 10 (3-11) BUN 58 H (6-23) mg/dl Creatinine 3.91 H (0.6-1.2) mg/dl Est Cr Clr Drug Dosing 13.9 ml/min Est GFR ( Amer) 12.4 ml/min Est GFR (Non-Af Amer) 10.7 ml/min BUN/Creatinine Ratio 14.8 (10-20) Glucose 88 (70-99(Fasting)) mg/dl POC Glucose 101 H 109 H (70-99) mg/dl Estimat Average Glucose 151 mg/dl Hemoglobin A1c 6.9 H (4.5-5.6) % Lactate (0.4-2.0) mmol/L Calcium 8.7 (8.6-10.3) mg/dl Phosphorus 6.8 H (2.5-4.9) mg/dl Magnesium 2.0 (1.7-2.4) mg/dl Total Bilirubin (0.2-1.0) mg/dl AST (13-39) U/L ALT (7-52) U/L Alkaline Phosphatase (34-104) U/L Troponin I High Sens (0-14) pg/ml Total Protein (6.0-8.3) gm/dl Albumin (3.4-5.0) gm/dl Globulin (2.5-4.0) gm/dl Albumin/Globulin Ratio (0.9-2) Procalcitonin (0-0.5) ng/ml TSH (0.300-4.500) uIu/ml Urine Color Urine Appearance (Clear) Urine pH (4.5-7.5) Ur Specific [place] (1.000-1.030) Urine Protein (Negative) Urine Glucose (UA) (Negative) Urine Ketones (Negative) Urine Blood (Negative) Urine Nitrite (Negative) Urine Bilirubin (Negative) Urine Urobilinogen (Negative) Ur Leukocyte Esterase (Negative) Urine WBC (Auto) (0-5) /hpf Urine RBC (Auto) (0-2) /hpf U Hyaline Cast (Auto) (0-2) /lpf U Epithel Cells (Auto) (0-2) /hpf Urine Bacteria (Auto) (None Seen) Adenovirus (PCR) (NotDetected) B. pertussis DNA (PCR) (NotDetected) B.parapertussis DNA PCR (NotDetected) C. pneumoniae DNA (PCR) (NotDetected) Coronavirus OC43 (PCR) (NotDetected) Coronavirus HKU1 (PCR) (NotDetected) Coronavirus 229E (PCR) (NotDetected) SARS-CoV-2 (PCR) (NotDetected) Coronavirus NL63 (PCR) (NotDetected) Human Metapneumovir PCR (NotDetected) Influenza Type A (PCR) (NotDetected) Influenza Type B (PCR) (NotDetected) M. pneumoniae (PCR) (NotDetected) Parainfluenza 1 (PCR) (NotDetected) Parainfluenza 2 (PCR) (NotDetected) Parainfluenza 3 (PCR) (NotDetected) Parainfluenza 4 (PCR) (NotDetected) RSV (PCR) (NotDetected) Entero/Rhino (PCR) (NotDetected) 09/20/23 09/20/23 09/20/23 Range/Units 20:30 20:06 18:38 WBC (4.8-10.8) K/ul RBC (4.20-5.40) M/uL Hgb (12.0-16.0) g/dl Hct (37.0-47.0) % MCV (80.0-100.0) fL MCH (25.0-34.0) pg MCHC (32.0-36.0) g/dL RDW Std Deviation (36.4-46.3) fL RDW Coeff of Aure (11.5-14.5) % Plt Count (130-400) K/uL MPV (9.4-12.4) fL Immature Gran % (Auto) % Neut % (Auto) % Lymph % (Auto) % [place] % (Auto) % Eos % (Auto) % Baso % (Auto) % Neut # (Auto) (1.40-6.50) K/uL Lymph # (Auto) (1.20-3.40) K/uL [place] # (Auto) (0.11-0.59) K/uL Eos # (Auto) (0.00-0.50) K/uL Baso # (Auto) (0.00-0.20) K/uL Immature Gran # (Auto) (0.01-0.20) K/uL PT 10.5 INR 1.0 VBG pH 7.28 L (7.36-7.41) VBG pCO2 44 (38-50) mmHg VBG pO2 57 mmHg VBG HCO3 21 mmol/L VBG O2 Saturation 89.7 % VBG Base Excess -6.0 mEq/L Sodium (136-145) mmol/L Potassium (3.5-5.1) mmol/L Chloride (98-107) mmol/L Carbon Dioxide (21-32) mmol/L Anion Gap (3-11) BUN (6-23) mg/dl Creatinine (0.6-1.2) mg/dl Est Cr Clr Drug Dosing ml/min Est GFR ( Amer) ml/min Est GFR (Non-Af Amer) ml/min BUN/Creatinine Ratio (10-20) Glucose (70-99(Fasting)) mg/dl POC Glucose (70-99) mg/dl Estimat Average Glucose mg/dl Hemoglobin A1c (4.5-5.6) % Lactate (0.4-2.0) mmol/L Calcium (8.6-10.3) mg/dl Phosphorus (2.5-4.9) mg/dl Magnesium (1.7-2.4) mg/dl Total Bilirubin (0.2-1.0) mg/dl AST (13-39) U/L ALT (7-52) U/L Alkaline Phosphatase (34-104) U/L Troponin I High Sens 65.1 H* (0-14) pg/ml Total Protein (6.0-8.3) gm/dl Albumin (3.4-5.0) gm/dl Globulin (2.5-4.0) gm/dl Albumin/Globulin Ratio (0.9-2) Procalcitonin (0-0.5) ng/ml TSH (0.300-4.500) uIu/ml Urine Color Yellow Urine Appearance Clear (Clear) Urine pH 5.0 (4.5-7.5) Ur Specific [place] 1.013 (1.000-1.030) Urine Protein 3+ H (Negative) Urine Glucose (UA) Negative (Negative) Urine Ketones Negative (Negative) Urine Blood Negative (Negative) Urine Nitrite Negative (Negative) Urine Bilirubin Negative (Negative) Urine Urobilinogen Negative (Negative) Ur Leukocyte Esterase Negative (Negative) Urine WBC (Auto) 0-5 (0-5) /hpf Urine RBC (Auto) 0-2 (0-2) /hpf U Hyaline Cast (Auto) 3-5 H (0-2) /lpf U Epithel Cells (Auto) 0-2 (0-2) /hpf Urine Bacteria (Auto) 1+ H (None Seen) Adenovirus (PCR) (NotDetected) B. pertussis DNA (PCR) (NotDetected) B.parapertussis DNA PCR (NotDetected) C. pneumoniae DNA (PCR) (NotDetected) Coronavirus OC43 (PCR) (NotDetected) Coronavirus HKU1 (PCR) (NotDetected) Coronavirus 229E (PCR) (NotDetected) SARS-CoV-2 (PCR) (NotDetected) Coronavirus NL63 (PCR) (NotDetected) Human Metapneumovir PCR (NotDetected) Influenza Type A (PCR) (NotDetected) Influenza Type B (PCR) (NotDetected) M. pneumoniae (PCR) (NotDetected) Parainfluenza 1 (PCR) (NotDetected) Parainfluenza 2 (PCR) (NotDetected) Parainfluenza 3 (PCR) (NotDetected) Parainfluenza 4 (PCR) (NotDetected) RSV (PCR) (NotDetected) Entero/Rhino (PCR) (NotDetected) 09/20/23 09/20/23 09/20/23 Range/Units 18:32 18:08 17:45 WBC 8.43 (4.8-10.8) K/ul RBC 2.80 L (4.20-5.40) M/uL Hgb 8.2 L (12.0-16.0) g/dl Hct 25.6 L (37.0-47.0) % MCV 91.4 (80.0-100.0) fL MCH 29.3 (25.0-34.0) pg MCHC 32.0 (32.0-36.0) g/dL RDW Std Deviation 50.4 H (36.4-46.3) fL RDW Coeff of Aure 15.1 H (11.5-14.5) % Plt Count 357 (130-400) K/uL MPV 9.1 L (9.4-12.4) fL Immature Gran % (Auto) 0.8 % Neut % (Auto) 79.6 % Lymph % (Auto) 10.6 % [place] % (Auto) 7.1 % Eos % (Auto) 1.3 % Baso % (Auto) 0.6 % Neut # (Auto) 6.71 H (1.40-6.50) K/uL Lymph # (Auto) 0.89 L (1.20-3.40) K/uL [place] # (Auto) 0.60 H (0.11-0.59) K/uL Eos # (Auto) 0.11 (0.00-0.50) K/uL Baso # (Auto) 0.05 (0.00-0.20) K/uL Immature Gran # (Auto) 0.07 (0.01-0.20) K/uL PT Cancelled INR Cancelled VBG pH (7.36-7.41) VBG pCO2 (38-50) mmHg VBG pO2 mmHg VBG HCO3 mmol/L VBG O2 Saturation % VBG Base Excess mEq/L Sodium 130 L (136-145) mmol/L Potassium 4.3 (3.5-5.1) mmol/L Chloride 97 L (98-107) mmol/L Carbon Dioxide 22 (21-32) mmol/L Anion Gap 11 (3-11) BUN 58 H (6-23) mg/dl Creatinine 3.84 H (0.6-1.2) mg/dl Est Cr Clr Drug Dosing 14.5 ml/min Est GFR ( Amer) 12.6 ml/min Est GFR (Non-Af Amer) 10.9 ml/min BUN/Creatinine Ratio 15.1 (10-20) Glucose 105 H (70-99(Fasting)) mg/dl POC Glucose (70-99) mg/dl Estimat Average Glucose mg/dl Hemoglobin A1c (4.5-5.6) % Lactate 0.5 (0.4-2.0) mmol/L Calcium 9.6 (8.6-10.3) mg/dl Phosphorus (2.5-4.9) mg/dl Magnesium 2.1 (1.7-2.4) mg/dl Total Bilirubin 0.3 (0.2-1.0) mg/dl AST 13 (13-39) U/L ALT 13 (7-52) U/L Alkaline Phosphatase 94 (34-104) U/L Troponin I High Sens 67.1 H* (0-14) pg/ml Total Protein 7.1 (6.0-8.3) gm/dl Albumin 3.7 (3.4-5.0) gm/dl Globulin 3.4 (2.5-4.0) gm/dl Albumin/Globulin Ratio 1.1 (0.9-2) Procalcitonin 0.16 (0-0.5) ng/ml TSH 1.682 (0.300-4.500) uIu/ml Urine Color Urine Appearance (Clear) Urine pH (4.5-7.5) Ur Specific [place] (1.000-1.030) Urine Protein (Negative) Urine Glucose (UA) (Negative) Urine Ketones (Negative) Urine Blood (Negative) Urine Nitrite (Negative) Urine Bilirubin (Negative) Urine Urobilinogen (Negative) Ur Leukocyte Esterase (Negative) Urine WBC (Auto) (0-5) /hpf Urine RBC (Auto) (0-2) /hpf U Hyaline Cast (Auto) (0-2) /lpf U Epithel Cells (Auto) (0-2) /hpf Urine Bacteria (Auto) (None Seen) Adenovirus (PCR) Not Detected (NotDetected) B. pertussis DNA (PCR) Not Detected (NotDetected) B.parapertussis DNA PCR Not Detected (NotDetected) C. pneumoniae DNA (PCR) Not Detected (NotDetected) Coronavirus OC43 (PCR) Not Detected (NotDetected) Coronavirus HKU1 (PCR) Not Detected (NotDetected) Coronavirus 229E (PCR) Not Detected (NotDetected) SARS-CoV-2 (PCR) Not Detected (NotDetected) Coronavirus NL63 (PCR) Not Detected (NotDetected) Human Metapneumovir PCR Not Detected (NotDetected) Influenza Type A (PCR) Not Detected (NotDetected) Influenza Type B (PCR) Not Detected (NotDetected) M. pneumoniae (PCR) Not Detected (NotDetected) Parainfluenza 1 (PCR) Not Detected (NotDetected) Parainfluenza 2 (PCR) Not Detected (NotDetected) Parainfluenza 3 (PCR) Not Detected (NotDetected) Parainfluenza 4 (PCR) Not Detected (NotDetected) RSV (PCR) Not Detected (NotDetected) Entero/Rhino (PCR) Not Detected (NotDetected) Medications Administered Current Inpatient Medications Acetaminophen (Acetaminophen 325 Mg Tab) 650 mg PO Q4H PRN PRN Reason: Pain or Fever Stop: 10/20/23 23:18 Amlodipine Besylate (Amlodipine Besylate 5 Mg Tab) 5 mg PO BID [facility] Stop: 10/20/23 20:59 Last Admin: 09/20/23 21:59 Dose: 5 mg Aspirin (Aspirin 81 Mg Ectab) 81 mg PO QAM [facility] Stop: 10/21/23 08:59 Dextrose (Dextrose 50% 50 Ml Syringe) 25 - 50 ml IV UD PRN; Protocol PRN Reason: Hypoglycemia Protocol Stop: 10/20/23 20:53 Fluoxetine HCl (Fluoxetine Hcl 20 Mg Cap) 40 mg PO QAM [facility] Stop: 10/21/23 08:59 Glucagon (Glucagon For Inj 1 Mg Vial) 1 mg SQ UD PRN; Protocol PRN Reason: Hypoglycemia Protocol Stop: 10/20/23 20:53 Glucose (Glucose 40% Gel 15 Gm Tube) 15 - 30 gm PO UD PRN; Protocol PRN Reason: Hypoglycemia Protocol Stop: 10/20/23 20:53 Glucose (Glucose 10 Tab/Tube) 4 - 8 tab PO UD PRN; Protocol PRN Reason: Hypoglycemia Treatment Stop: 10/20/23 20:53 Heparin Sodium (Porcine) (Heparin Sod 5,000 Unit/0.5 Ml Vial) 7,500 units SQ Q12 JESS Stop: 10/20/23 23:18 Last Admin: 09/21/23 00:14 Dose: 7,500 units Insulin Aspart (Insulin Aspart Per Unit Charge) 0 units SC ACHS [facility] Stop: 10/20/23 20:59 Last Admin: 09/21/23 08:55 Dose: Not Given Miscellaneous (Carbohydrates For Hypoglycemia ) 15 - 30 gm PO UD PRN PRN Reason: Hypoglycemia Protocol Stop: 10/20/23 20:53 Ondansetron HCl (Ondansetron Inj 2 Mg/Ml 2 Ml Vial) 4 mg IV Q6H PRN PRN Reason: Nausea Stop: 10/20/23 23:18 Polyethylene Glycol (Polyethylene (Miralax) 17 Gm Pack) 17 gm PO DAILY PRN PRN Reason: Constipation Stop: 10/20/23 23:18 Rosuvastatin Calcium (Rosuvastatin Calcium 10 Mg Tab) 10 mg PO QPM JESS Stop: 10/20/23 20:59 Last Admin: 09/20/23 21:58 Dose: 10 mg (7) Anemia Anemia type: unspecified type Qualified Code(s): D64.9 - Anemia, unspecified
--- NOTE | 2023-09-21 09:54 | Nephrology Consultation ---
Date of Consultation September 21, 2023 Assessment & Plan (1) Acute kidney injury superimposed on chronic kidney disease: She has had really uncontrolled DM for all her life. I think we have reached the final stages of CKD progression. She is getting closer to need Dialysis. No e/o fluid deficit. In fact has some edema so will Stop Amlodipine. Instead use torsemide 100 daily and also use losartan 100 daily. I will be managing her as more of CKD 5/ESRD at this point. Her creat of about 4 does not look high enough to have uremic Symptoms but skilled nursing diabetic patients can have uremia Symptoms even at this level. Also check GFR by cystatin C method. Will observe the course of her GFR next few days. And if she needs dialysis will plan for tunnelled HD cath next week. this will be more clear in the next few days. Also has severe anemia--likely ESRD related. Given Procrit 12861 unit and also venofer 300 mg. PRBC if hgb < 7 (2) Acute confusion: for no clear reason she is much more lucid today than yesterday. Its like a night and day difference. (3) Acute uremia: She has lot of symptoms of uremia but then Confusion seems lot better today !! History of Present Illness Reason for Consultation: KAVITA on CKD Attending Physician: Gerry Pittman MD History of Present Illness 73/F with longstanding history of uncontrolled diabetes with known diabetic retinopathy neuropathy worsening CKD with proteinuria. .No history of cardiac problem kidney stone childhood kidney disease or family history of ESRD. Her father did have some kidney failure after the AAA repair Other medical problems includes hypertension depression and hyperlipidemia. As per the patient for a while patient did not really care about her health and medication because severe depression. She was admitted in [facility] where I did see her last admission. Her renal function is running worse than before. She was admitted after failed outpatient treatment of respiratory symptoms. Imaging showed pneumonia. She initially got some IV fluid but kidney function never really improved that much. After stabilization of renal function at a higher creatinine level she was discharged [facility]. She has been there for only 6 days. She has had labs done almost every day and creatinine continues to get worse. Even though she was discharged on torsemide 20 she has not received that every day at the rehab. She is here with her daughter. I saw her in clinic yesterday. Patient was very somnolent, weak and was having myoclonic jerk feeling very cold and c/o nausea and poor appetite. She could barely keep her eyes open for more than few seconds. because of these symptoms I felt she maybe uremic and wanted her to be admitted for AMS and uremic Symptoms. Labs now shows Creat of 3.9 and now hgb of 7. she had lasix 100 x 1 and did make a lot of urine. has montanez now. BP is fine. CXR and CT head was unremarkable. ROS--see HPI. otherwise 12 Systems reviewed and negative Exam: Much more alert and oriented today. Not Closing eyes like yesterday. Good conversation today. MM Moist. neck supple. No JVD Chest b/l clear. CVS--RRR. No murmur Abd-Soft non tender. ext--has 1+ edema. Allergies Allergy/AdvReac Type Severity Reaction Status Date / Time No Known Allergies Allergy Verified 09/20/23 21:52 Home Medications Medication Instructions Recorded Confirmed Type aspirin 81 mg tablet,delayed 81 mg PO QAM 03/13/19 09/20/23 History release cyanocobalamin (vitamin B-12) 500 500 mcg PO QAM 03/13/19 09/20/23 History mcg tablet (Vitamin B-12) acetaminophen 325 mg tablet 325 mg PO Q6H PRN Pain 09/09/23 09/20/23 History (Tylenol) cholecalciferol (vitamin D3) 125 125 mcg PO DAILY 09/09/23 09/20/23 History mcg (5,000 unit) tablet (Vitamin D3) fluoxetine 40 mg capsule 40 mg PO QAM 09/09/23 09/20/23 History fluticasone propionate 50 2 spray intranasal DAILY 09/09/23 09/20/23 History mcg/actuation nasal spray,suspension omega-3 fatty acids 1,000 mg 1,000 mg PO QAM 09/09/23 09/20/23 History capsule oxybutynin chloride 5 mg tablet 5 mg PO QAM 09/09/23 09/20/23 History rosuvastatin 10 mg tablet 10 mg PO QPM 09/09/23 09/20/23 History amlodipine 5 mg tablet 5 mg PO BID #0 tabs 09/15/23 09/20/23 Rx gabapentin 600 mg tablet 300 mg (1/2 x 600 mg) PO BID #0 09/15/23 09/20/23 Rx tabs guaifenesin 600 mg tablet, 600 mg PO Q12 #10 tabs 09/15/23 09/20/23 Rx extended release 12 hr (Mucinex) hydralazine 50 mg tablet 100 mg (2 x 50 mg) PO TID #90 tabs 09/15/23 09/20/23 Rx insulin glargine U-300 conc 300 10 unit (0.0333 mL) subcut QAM #0 09/15/23 09/20/23 Rx unit/mL (3 mL) subcutaneous pen mL (Toujeo Max U-300 SoloStar) insulin lispro 100 unit/mL 5 unit (0.05 mL) subcut TIDM #0 mL 09/15/23 09/20/23 Rx subcutaneous pen (Humalog KwikPen (U-100) Insulin) levofloxacin 500 mg tablet 500 mg PO Q48H 5 days #3 tabs 09/15/23 09/20/23 Rx torsemide 20 mg tablet 20 mg PO QAM #10 tabs 09/15/23 09/20/23 Rx heparin (porcine) 5,000 unit/mL 5,000 unit subcut Q8H 09/20/23 09/20/23 History injection solution Patient History Medical History Acidosis Hypertensive urgency Surgical History History of nasal surgery Family History Other Breast cancer No pertinent family history Social History Smoking Status: Never smoker Second Hand Exposure: No; Do You Dip or Chew Tobacco: No; Hx Alcohol Use: No Hx Substance Use: No Preferred Language: Malay Communication Ability: Effective Pill Maker Required: No Beliefs That Will Affect Care: None Current Living Situation: Alone Current Living Situation Comment: lives at home alone but HH nurse and daughter assist Other Information That Helps Us Care for You: No Feels Safe at Home: Yes Safety Concerns: Feels Safe At This Time Assistive Devices: Oxygen - Continuous and Walker Results & Data Vital Signs (Past 12 Hours) Vital Signs Temp Pulse Pulse Pulse Resp BP BP 09/21/23 08:18 36.4 C L 92 H 20 134/61 09/21/23 04:00 36.6 C 84 18 116/65 09/21/23 01:00 36.5 C 75 18 157/79 H 09/20/23 23:49 09/20/23 23:49 36.5 C 82 20 158/69 H 09/20/23 23:26 83 09/20/23 21:57 85 16 154/89 H Pulse Ox O2 Del Method O2 Flow Rate 09/21/23 08:18 95 Room Air 09/21/23 04:00 96 Nasal Cannula 2 09/21/23 01:00 98 Nasal Cannula 2 09/20/23 23:49 Nasal Cannula 2 09/20/23 23:49 97 Nasal Cannula 2 09/20/23 23:26 09/20/23 21:57 97 Nasal Cannula 2 Laboratory Results Reviewed
[2023-09-21] MEDS: ASPIRIN 81 MG ECTAB PO SCH (10:48)
[2023-09-21] MEDS: ACETAMINOPHEN 325 MG TAB PO PRN (10:48)
[2023-09-21] MEDS: FLUoxetine HCL 20 MG CAP PO SCH (10:49)
[2023-09-21] MEDS: TORSEMIDE 100 MG TAB PO SCH (10:52)
[2023-09-21] MEDS: LOSARTAN POTASSIUM 50 MG TAB PO SCH (12:09)
--- OUTSIDE RECORDS SUMMARY | 2023-09-21 18:51 | External Medical Summary | Summary of Care ---
Author Name Unknown Organization [facility] Address [address] [place] [address] Phone [phone] Care Team Providers Care College Teacher Name Role Phone Ghada Salazar MD Primary Care Provider Reason for Visit * Reason Onset Date Comments Medication Refill 09/15/2023 Encounter Details Date Type Department Care Team (Late st Contact Info) Description 09/15/2023 Refill Family Practice [facility] [address] [place] [phone] Ghada Salazar MD [address] [facility] [place] [address] Type 2 diabetes mellitus with hemoglobin A1c goal of less than 7.0% (HCC) Allergies No known active allergiesdocumented as of this encounter (statuses as of 09/16/2023) Medications Medication Sig Dispensed Refills Start Date [...] goal of less than 7.0% ([facility]) Inject 16 Units under the [...] 05/29/2023 Active Additional Information Patient taking differently:2 [place] Each Nostril Daily(AM),Indications: as needed, Reported on 06/02/2023 Assure ID Duo Pro Pen [place] 31G X 5 MM (Insulin Pen Needle) [...] the morning. 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 1 Each 09/13/2023 Active documented as of this encounter (statuses as of 09/16/2023) Active Problems Problem Noted Date Diagnosed Date [...] as of this encounter (statuses as of 09/16/2023) Resolved Problems Problem Noted Date Diagnosed Date Resolved Date Stage 3b chronic kidney disease (CKD) 02/09/2022 05/20/2022 Diabetic retinopathy associa nasra with type 2 diabetes mellitus 02/09/2022 05/20/2022 documented as of this encounter (statuses as of 09/16/2023) Immunizations Name Administration Dates Next Due COVID-19 mRNA, LNP-s, No Pre serve, 2-Dose Series (Presstler) 02/01/2021,07/09/2020,06/16/2020 COVID-19, LNP-s, No Preserve , Perfecto-sucrose, Ages 12+ (Presstler) 07/05/2023,11/01/2021 Covid-19, Mrna, Lnp-s, Pf, B ivalent, [...] encounter Miscellaneous Notes * Telephone Encounter - Jordan Vital [facility] - 09/16/2023 11:21 AM EDT Refused Prescriptions: Disp Refills FreeStShopIt Jewel 2 Sensor 1 Each 0 Sig: Use as directed.RefusedBy: JORDAN VITALReason for Refusal: Other (comment below)Reason for Refusal Comment: Uses Total Medical Supplies documented in this encounter Plan of Treatment Upcoming Encounters Date Type Department Care Team (Late st Contact Info) Description 09/20/2023 2:00 PM EDT Office Visit Nephrology, Alber Dang [address] [place] [address] Juan Tovar MD [address] [place] [address] 09/26/2023 1:30 PM EDT Office Visit Orthopaedics [facility] [address] [place] [address] Zia Monsalve MD [address] [place] [address] 09/27/2023 2:30 PM EDT Imaging [facility] [address] [place] [address] 10/10/2023 1:30 PM EDT Office Visit Interventional Pain Center, [facility] [address] [place] [address] Edgar Forde, DO [address] [place] [phone] 12/28/2023 3:20 PM EDT Office Visit Family Practice [facility] [address] [place] [address] Ghada Salazar MD [address] [place] [address] 02/13/2024 10:40 AM EDT Office Visit Sleep Disorders Ctr [facility] [address] [place] [phone] Sofia Romo, DO [address] [place] [address] Health Maintenance Due Date Last Done Comments Cologuard 1994 Colonoscopy 1994 Colorectal Cancer Screening 1994 Fecal Occult Blood Test 1994 Sigmoidoscopy 1994 Diabetic Foot Exam 05/20/2023 05/20/2022 COVID-19 Vaccine ( season) 2023 07/05/2023, 10/06/2022, 01/06/2022, Additional history exists PTH 09/23/2023 09/22/2022, 02/18/2022 HbA1c 12/13/2023 06/14/2023, 060 09/2022, 05/20/2022, Additional history exists Influenza Vaccine (FLU shot) (Season Ended) 2023 12/17/2021, 01/25/2021 Phosphate 12/30/2023 12/29/2022, 0 11/2022, 02/18/2022 Nephrology Referral 01/20/2024 01/19/2023 Diabetic Eye Exam 03/02/2024 03/02/2023, 02/10/2022 GFR 03/17/2024 09/16/2023, 05/19, 12/29/2022, Additional history exists Mammogram 03/29/2024 03/29/2023, 05/2021, 08/28/2013 Albumin/Creatinine Ratio 09/05/2024 09/06/2023, 110 07/2021 Hgb 09/15/2024 09/16/2023, 12/16, 09/22/2022, Additional history exists Lipid Panel 06/14/2028 06/14/2023, 06/2022, 01/25/2021 DTaP,Tdap,and [...] this encounter Medical Devices Implanted Type Area Chief Dispatcher Service Device Identifier Shelf Expiration Date Model / Serial / Lot Mometasone Furoate Implant Min - [id number] Implanted:Qty: 1 on 07/18/2023 by Pat Umaña MD at OR [facility] Right: Nose [employer] MACK 05/03/2024 [id number] / / [id number] documented as of this encounter Visit Diagnoses Diagnosis Type 2 diabetes mellitus with hemoglobin A1c goal of less than 7.0% (HCC) documented in this encounter Care Teams College Teacher Relationship Specialty Start Date End Date Ghada Salazar MD [address] [place] [address] PCP - General Internal Medicine 04/04/22 documented as of this encounter
--- OUTSIDE RECORDS SUMMARY | 2023-09-21 18:51 | External Medical Summary ---
Author Name Unknown Address Unknown Organization [id number] [address] [place] [address] Laboratory Report Ordering Provider Test Date Status HY,DEPAMPHILIS 09/17/2023 06:50:24 Final Observation Date Value Abnormality Reference (Units ) Status BUN 09/17/2023 06:50:24 49 Above high normal 6-20 (mg/dL) Final Creatinine 09/17/2023 06:50:24 3.5 Above high normal 0.5-1.0 (mg/dL) Final Glomerular filtration rate/1.73 sq M.predicted [Volume Rate/Area] in Serum, Plasma or Blood by Creatinine-based formula (CKD-EPI) 09/17/2023 06:50:24 13 Below low normal >=60 (mL/min) Final eGFR is calculated based on the CKD-EPI 2020 equation Sodium 09/17/2023 06:50:24 133 Below low normal 135 -146 (mmol/L) Final Potassium 09/17/2023 06:50:24 5.2 Above high normal 3. 5-5.1 (mmol/L) Final Cl 09/17/2023 06:50:24 100 98-107 (mm ol/L) Final CO2 09/17/2023 06:50:24 21 Below low normal 22- 32 (mmol/L) Final Anion gap 09/17/2023 06:50:24 12 7-15 (mmol /L) Final Glucose 09/17/2023 06:50:24 111 70-120 (mg /dL) Final Calcium 09/17/2023 06:50:24 9.3 8.4-10.2 ( mg/dL) Final Performing Location [facility] [address] - [address] [place] [address]
--- OUTSIDE RECORDS SUMMARY | 2023-09-21 18:51 | External Medical Summary ---
Author Name Unknown Address Unknown Organization [id number] [address] - [address] [place] [address] Laboratory Report Ordering Provider Test Date Status CLARITZA LALA 09/16/2023 07:09:18 Final Observation Date Value Abnormality Reference (Units ) Status BUN 09/16/2023 07:09:18 50 Above high normal 6-20 (mg/dL) Final Creatinine 09/16/2023 07:09:18 3.4 Above high normal 0.5-1.0 (mg/dL) Final Glomerular filtration rate/1.73 sq M.predicted [Volume Rate/Area] in Serum, Plasma or Blood by Creatinine-based formula (CKD-EPI) 09/16/2023 07:09:18 14 Below low normal >=60 (mL/min) Final eGFR is calculated based on the CKD-EPI 2020 equation Sodium 09/16/2023 07:09:18 133 Below low normal 135 -146 (mmol/L) Final Potassium 09/16/2023 07:09:18 5.2 Above high normal 3. 5-5.1 (mmol/L) Final Cl 09/16/2023 07:09:18 101 98-107 (mm ol/L) Final CO2 09/16/2023 07:09:18 21 Below low normal 22- 32 (mmol/L) Final Anion gap 09/16/2023 07:09:18 11 7-15 (mmol /L) Final Glucose 09/16/2023 07:09:18 120 70-120 (mg /dL) Final Calcium 09/16/2023 07:09:18 9.4 8.4-10.2 ( mg/dL) Final Performing Location [facility] [place] [address] - [address] [place] [address]
--- OUTSIDE RECORDS SUMMARY | 2023-09-21 18:51 | External Medical Summary ---
Author Name Unknown Address Unknown Organization K[facility] [place] [address] Laboratory Report Ordering Provider Test Date Status CLARITZA LALA 09/19/2023 06:12:20 Final Observation Date Value Abnormality Reference (Units ) Status BUN 09/19/2023 06:12:20 55 Above high normal 6-20 (mg/dL) Final Creatinine 09/19/2023 06:12:20 3.8 Above high normal 0.5-1.0 (mg/dL) Final Glomerular filtration rate/1.73 sq M.predicted [Volume Rate/Area] in Serum, Plasma or Blood by Creatinine-based formula (CKD-EPI) 09/19/2023 06:12:20 12 Below low normal >=60 (mL/min) Final eGFR is calculated based on the CKD-EPI 2020 equation Sodium 09/19/2023 06:12:20 132 Below low normal 135 -146 (mmol/L) Final Potassium 09/19/2023 06:12:20 5.1 3.5-5.1 (m mol/L) Final Cl 09/19/2023 06:12:20 97 Below low normal 98- 107 (mmol/L) Final CO2 09/19/2023 06:12:20 20 Below low normal 22- 32 (mmol/L) Final Anion gap 09/19/2023 06:12:20 15 7-15 (mmol /L) Final Glucose 09/19/2023 06:12:20 97 70-120 (mg /dL) Final Calcium 09/19/2023 06:12:20 9.6 8.4-10.2 ( mg/dL) Final Performing Location [place] [address]
--- OUTSIDE RECORDS SUMMARY | 2023-09-21 18:51 | External Medical Summary | Summary of Care ---
Author Name Unknown Organization [facility] Address [address] [place] [address] Phone [phone] Care Team Providers Care Airport Electrician Name Role Phone Ghada Salazar MD Primary Care Provider Reason for Visit * Reason Onset Date Comments Medication Refill 09/15/2023 Encounter Details Date Type Department Care Team (Late st Contact Info) Description 09/15/2023 Refill Family Practice [facility] [address] [place] [phone] Ghada Salazar MD [address] [facility] [place] [address] Type 2 diabetes mellitus with hemoglobin A1c goal of less than 7.0% (HCC) Allergies No known active allergiesdocumented as of this encounter (statuses as of 09/18/2023) Medications Medication Sig Dispensed Refills Start Date [...] hemoglobin A1c goal of less than 7.0% ([facility]) Inject 16 Units under the skin [...] 05/29/2023 Active Additional Information Patient taking differently:2 [place] Each Nostril Daily(AM),Indications: as needed, Reported on 06/02/2023 Assure ID Duo Pro Pen [place] 31G X 5 MM (Insulin Pen Needle) [...] hemoglobin A1c goal of less than 7.0% ([facility]) Use as directed. 1 Each 09/13/2023 Active documented as of this encounter (statuses as of 09/18/2023) Active Problems Problem Noted Date Diagnosed Date [...] as of this encounter (statuses as of 09/18/2023) Resolved Problems Problem Noted Date Diagnosed Date Resolved Date Stage 3b chronic kidney disease (CKD) 02/09/2022 05/20/2022 Diabetic retinopathy associa nasra with type 2 diabetes mellitus 02/09/2022 05/20/2022 documented as of this encounter (statuses as of 09/18/2023) Immunizations Name Administration Dates Next Due COVID-19 mRNA, LNP-s, No Pre serve, 2-Dose Series (Filtrbox) 02/01/2021,07/09/2020,06/16/2020 COVID-19, LNP-s, No Preserve , Perfecto-sucrose, Ages 12+ (Filtrbox) 07/05/2023,11/01/2021 Covid-19, Mrna, Lnp-s, Pf, B ivalent, [...] encounter Miscellaneous Notes * Telephone Encounter - Jennifer Levy OSA - 09/18/2023 4:40 PM EDT Daughter calling with fax number for total medical supply - [phone] only has 2 left and needs this drea. * Telephone Encounter - Jordan Vital [facility] - 09/16/2023 11:21 AM EDT Refused Prescriptions: Disp Refills FreeStyle Jewel 2 Sensor 1 Each 0 Sig: Use as directed.RefusedBy: JORDAN VITALReason for Refusal: Other (comment below)Reason for Refusal Comment: Uses Total Medical Supplies documented in this encounter Plan of Treatment Upcoming Encounters Date Type Department Care Team (Late st Contact Info) Description 09/20/2023 2:00 PM EDT Office Visit Nephrology, Alber Dang [address] [place] [address] Juan Tovar MD [address] [place] [address] 09/26/2023 1:30 PM EDT Office Visit Orthopaedics [facility] [address] [place] [address] Zia Monsalve MD [address] [place] [address] 09/27/2023 2:30 PM EDT Imaging Radiology [facility] 1st [facility] [place] [address] [place] [address] 09/28/2023 6:10 PM EDT Pharmacy Pharmacy, [facility] [address] [place] [address] [facility] [place] [address] 10/10/2023 1:30 PM EDT Office Visit Interventional Pain Center, [facility] [address] [place] [address] Edgar Forde DO [address] [place] [phone] 12/28/2023 3:20 PM EDT Office Visit Family Practice [facility] [address] [place] [address] Ghada Salazar MD [address] [place] [address] 02/13/2024 10:40 AM EDT Office Visit Sleep Disorders Ctr [facility] [address] [place] [phone] Sofia Romo DO [address] [place] [address] Health Maintenance Due Date Last Done Comments [...] Diabetic Eye Exam 03/02/2024 03/02/2023, 02/10/2022 GFR 03/19/2024 09/18/2023, 060 05/2023, 09/16/2023, Additional history exists Mammogram 03/29/2024 03/29/2023, 05/2021, 08/28/2013 Albumin/Creatinine Ratio 09/05/2024 09/06/2023, 07/2021 Hgb 09/15/2024 09/16/2023, 12/16, 09/22/2022, Additional [...] this encounter Medical Devices Implanted Type Area Wire Brusher Device Identifier Shelf Expiration Date Model / Serial / Lot Mometasone Furoate Implant Min - [id number] Implanted:Qty: 1 on 07/18/2023 by Pat Umaña MD at OR [facility] Right: Nose Attentive.ly 05/03/2024 [id number] / / [id number] documented as of this encounter Visit Diagnoses Diagnosis Type 2 diabetes mellitus with hemoglobin A1c goal of less than 7.0% (HCC) documented in this encounter Care Teams Airport Electrician Relationship Specialty Start Date End Date Ghada Salazar MD [address] [facility] [place] [address] PCP - General Internal Medicine 04/04/22 documented as of this encounter
--- OUTSIDE RECORDS SUMMARY | 2023-09-21 18:51 | External Medical Summary | Summary of Care ---
Author Name Unknown Organization [facility] Address [address] [facility] [address] Phone [phone] Care Team Providers Care Supervisor Mapping Name Role Phone Ghada Salazar MD Primary Care Provider Reason for Visit * Reason Onset Date Comments Advice 09/16/2023 Encounter Details Date Type Department Care Team (Late st Contact Info) Description 09/16/2023 Telephone Family Practice [facility] [address] [place] [address] Ghada Salazar MD [address] [place] [address] Advice Allergies No known active allergiesdocumented as of this encounter (statuses as of 09/19/2023) Medications Medication Sig Dispensed Refills Start Date [...] 05/29/2023 Active Additional Information Patient taking differently:2 [place] Each Nostril Daily(AM),Indications: as needed, Reported on 06/02/2023 Assure ID Duo Pro Pen [place] 31G X 5 MM (Insulin Pen Needle) [...] less than 7.0% ([facility]) Use as directed. 1 Each 09/13/2023 Active Omeprazole 40 MG Oral Capsule Delayed Release (PriLOSEC)Indicatio ns:Hiatal hernia Take 1 Capsule by mouth in the morning. 1 hour before the first meal of the day. 30 Capsule 5 09/18/2023 Active documented as of this encounter (statuses as of 09/19/2023) Active Problems Problem Noted Date Diagnosed Date [...] as of this encounter (statuses as of 09/19/2023) Resolved Problems Problem Noted Date Diagnosed Date Resolved Date Stage 3b chronic kidney disease (CKD) 02/09/2022 05/20/2022 Diabetic retinopathy associa nasra with type 2 diabetes mellitus 02/09/2022 05/20/2022 documented as of this encounter (statuses as of 09/19/2023) Immunizations Name Administration Dates Next Due COVID-19 mRNA, LNP-s, No Pre serve, 2-Dose Series (Juxinli) 02/01/2021,07/09/2020,06/16/2020 COVID-19, LNP-s, No Preserve , Perfecto-sucrose, Ages 12+ (Juxinli) 07/05/2023,11/01/2021 Covid-19, Mrna, Lnp-s, Pf, B ivalent, [...] encounter Miscellaneous Notes * Telephone Encounter - Millie Liriano LPN - 09/19/2023 10:34 AM EDT Faxed order to [facility], attn: [email or web address]. * Telephone Encounter - Ghada Salazar MD - 09/18/2023 9:57 PM EDT Ordered, Please fax to [facility]. * Telephone Encounter - Kristy Rooney MED ASSIST - 09/18/2023 6:17 PM EDT Josselyn informed. Can you place order for [facility] to give Omeprazole? * Telephone Encounter - Cammie Hsieh OSA - 09/18/2023 4:13 PM EDT Josselyn calling on behalf of patient in regards to patient being at [facility]. Would like to discuss further. data deliverables manager Jennifer Arreaga Currently out of office. * Telephone Encounter - Ghada Salazar MD - 09/18/2023 2:[address] chest shows a small hiatal hernia. Recommendation is to treat the gastroesophageal reflux that typically comes with the hiatal hernia. Does not appear that she is on any reflux medications. While she is at [facility], please ask their team to start something. (Famotidine, omeprazole, etc.)we can adjust as needed once she is discharged. Should also be eating while upright and not lay downright afterwards. * Telephone Encounter - Vashti Mcdonough OSA - 09/16/2023 2:47 PM EDT Daughter calling, mother recently admitted to [facility] and had a CT scan that indicated hiatal hernia. Will speak with doctor at [facility] but wanted family provider input and guidance. Mother has been having bad nausea, indigestion, discomfort and shortness of breath - daughter thinks that herniamight be causing symptoms and wants to know the next best steps. Call back #[phone] documented in this encounter Plan of Treatment Upcoming Encounters Date Type Department Care Team (Late st Contact Info) Description 09/20/2023 2:00 PM EDT Office Visit Nephrology, Alber Dang [address] [place] [address] Juan Tovar MD [address] [place] [address] 09/26/2023 1:30 PM EDT Office Visit Orthopaedics [facility] [address] [place] [address] Zia Monsalve MD [address] [place] [address] 09/27/2023 2:30 PM EDT Imaging Radiology [facility] 1st [facility] [address] [place] [address] 09/28/2023 6:10 PM EDT Pharmacy Pharmacy, [facility] [address] [place] [address] [facility] [address] [place] [address] 10/10/2023 1:30 PM EDT Office Visit Interventional Pain Center, [facility] [address] [place] [address] Edgar Forde DO [address] [place] [phone] 12/28/2023 3:20 PM EDT Office Visit Family Practice [facility] [address] [place] [address] Ghada Salazar MD [address] [place] [address] 02/13/2024 10:40 AM EDT Office Visit Sleep Disorders Ctr [facility] [address] [place] [phone] Sofia Romo, [address] [place] [address] Health Maintenance Due Date Last Done Comments Cologuard 1994 Colonoscopy 1994 Colorectal Cancer Screening 1994 Fecal Occult Blood Test 1994 Sigmoidoscopy 1994 Diabetic Foot Exam 05/20/2023 05/20/2022 COVID-19 Vaccine ( season) 2023 07/05/2023, 07/05/2023, 01/25/2023, Additional history exists PTH 09/23/2023 09/22/2022, 02/18/2022 HbA1c 12/13/2023 06/14/2023, 060 09/2022, 05/20/2022, Additional history exists Influenza Vaccine (FLU shot) (Season Ended) 2023 12/17/2021, 01/25/2021 Phosphate 12/30/2023 12/29/2022, 06/0 11/2022, 02/18/2022 Nephrology Referral 01/20/2024 01/19/2023 Diabetic Eye Exam 03/02/2024 03/02/2023, 02/10/2022 GFR 03/20/2024 09/19/2023, 060 06/2023, 09/17/2023, Additional history exists Mammogram 03/29/2024 03/29/2023, 1205/2021, 08/28/2013 Albumin/Creatinine Ratio 09/05/2024 09/06/2023, 110 07/2021 Hgb 09/15/2024 09/16/2023, 12/16, 09/22/2022, Additional history exists Lipid Panel 06/14/2028 06/14/2023, 020 06/2022, 01/25/2021 [...] this encounter Medical Devices Implanted Type Area Smoke Jumper Supervisor Device Identifier Shelf Expiration Date Model / Serial / Lot Mometasone Furoate Implant Min - [id number] Implanted:Qty: 1 on 07/18/2023 by Pat Umaña MD at [facility] Right: Nose [employer] 05/03/2024 [id number] / / [id number] documented as of this encounter Visit Diagnoses Diagnosis Hiatal hernia- Primary Diaphragmatic hernia without mention of obstruction or gangrene documented in this encounter Care Teams Supervisor Mapping Relationship Specialty Start Date End Date Ghada Salazar MD [address] [place] [address] PCP - General Internal Medicine 04/04/22 documented as of this encounter
--- OUTSIDE RECORDS SUMMARY | 2023-09-21 18:51 | External Medical Summary ---
Author Name Unknown Address Unknown Organization [facility] [place] [address] Laboratory Report Ordering Provider Test Date Status HY,DEPAMPHILIS 09/18/2023 06:01:30 Final Observation Date Value Abnormality Reference (Units ) Status BUN 09/18/2023 06:01:30 51 Above high normal 6-20 (mg/dL) Final Creatinine 09/18/2023 06:01:30 3.6 Above high normal 0.5-1.0 (mg/dL) Final Glomerular filtration rate/1.73 sq M.predicted [Volume Rate/Area] in Serum, Plasma or Blood by Creatinine-based formula (CKD-EPI) 09/18/2023 06:01:30 13 Below low normal >=60 (mL/min) Final eGFR is calculated based on the CKD-EPI 2020 equation Sodium 09/18/2023 06:01:30 132 Below low normal 135 -146 (mmol/L) Final Potassium 09/18/2023 06:01:30 5.4 Above high normal 3. 5-5.1 (mmol/L) Final Cl 09/18/2023 06:01:30 99 98-107 (mm ol/L) Final CO2 09/18/2023 06:01:30 20 Below low normal 22- 32 (mmol/L) Final Anion gap 09/18/2023 06:01:30 13 7-15 (mmol /L) Final Glucose 09/18/2023 06:01:30 99 70-120 (mg /dL) Final Calcium 09/18/2023 06:01:30 9.5 8.4-10.2 ( mg/dL) Final Performing Location [facility] [place] [address]
--- OUTSIDE RECORDS SUMMARY | 2023-09-21 18:51 | External Medical Summary ---
Author Name Unknown Address Unknown Organization K09:[facility] [address] [place] [address] Laboratory Report Ordering Provider Test Date Status CLARITZA LALA 09/19/2023 06:54:15 Final Observation Date Value Abnormality Reference (Units ) Status Color of Urine by Auto 09/19/2023 06:54:15 Yellow Light Yellow, Yellow, Dark Yellow Final Clarity, Urine 09/19/2023 06:54:15 Slightly Cloudy Abnormal Clear Final Glucose [Mass/volume] in Urine by Automated test strip 09/19/2023 06:54:15 100 Abnormal Negative (mg/dL) Final Bilirubin.total [Presence] in Urine by Automated test strip 09/19/2023 06:54:15 Negative Negative Final Ketones [Mass/volume] in Urine by Automated test strip 09/19/2023 06:54:15 Negative Negative (mg/dL) Final Specific gravity, Urine 09/19/2023 06:54:15 1.025 1.003-1.030 Final Hemoglobin [Presence] in Urine by Automated test strip 09/19/2023 06:54:15 Negative Negative Final pH, Urine 09/19/2023 06:54:15 5.5 5.0-7.5 (Units) Final Protein [Mass/volume] in Urine by Automated test strip 09/19/2023 06:54:15 >=300 Abnormal Negative (mg/dL) Final Urobilinogen [Mass/volume] in Urine by Automated test strip 09/19/2023 06:54:15 0.2 0.2, 1.0 (mg/dL) Final Nitrite [Presence] in Urine by Automated test strip 09/19/2023 06:54:15 Negative Negative Final Leukocyte esterase [Presence] in Urine by Automated test strip 09/19/2023 06:54:15 Negative Negative Final RBC, Urine 09/19/2023 06:54:15 0-2 0-2 (/HPF) Final WBC, Urine 09/19/2023 06:54:15 6-9 Abnormal 0-2 (/HPF) Final Bacteria [#/area] in Urine sediment by Microscopy high power field 09/19/2023 06:54:15 26-50 Abnormal 0-25 (/HPF) Final Crystals.amorphous [#/area] in Urine sediment by Microscopy high power field 09/19/2023 06:54:15 Many Abnormal None (/HPF) Final Granular casts [#/area] in Urine sediment by Microscopy low power field 09/19/2023 06:54:15 1-4 Abnormal None (/LPF) Final Transitional cells [#/area] in Urine sediment by Microscopy high power field 09/19/2023 06:54:15 1-4 Abnormal None (/HPF) Final Performing Location [facility] [address] [place] [address]
--- OUTSIDE RECORDS SUMMARY | 2023-09-21 18:51 | External Medical Summary | Summary of Care ---
Author Name Unknown Organization [facility] Address [address] [place] [address] Phone [phone] Care Team Providers Care Clip Baker Name Role Phone Ghada Salazar MD Primary Care Provider Reason for Visit * Reason Onset Date Comments Medication Refill 09/15/2023 Encounter Details Date Type Department Care Team (Late st Contact Info) Description 09/15/2023 Refill Family Practice [facility] [address] [place] [phone] Ghada Salazar MD [address] [place] [address] Type 2 diabetes mellitus with hemoglobin A1c [...] goal of less than 7.0% ([facility]) Inject 16 Units under the skin every [...] 05/29/2023 Active Additional Information Patient taking differently:2 [place] Each Nostril Daily(AM),Indications: as needed, Reported on 06/02/2023 Assure ID Duo Pro Pen [place] 31G X 5 MM (Insulin Pen Needle) [...] goal of less than 7.0% ([facility]) Use as directed. 1 Each 09/13/2023 Active [...] mRNA, LNP-s, No Pre serve, 2-Dose Series (SaaSAssurance) 02/01/2021,07/09/2020,06/16/2020 COVID-19, LNP-s, No Preserve , Perefcto-sucrose, Ages 12+ (SaaSAssurance) 07/05/2023,11/01/2021 Covid-19, Mrna, Lnp-s, Pf, B ivalent, [...] fax number for total medical supply - [phone] only has 2 left and needs this drea. * Telephone Encounter - Jordan Vital [facility] - 09/16/2023 11:21 AM EDT [...] Visit Nephrology, Alber D[address] [place] [address] Juan Tovar MD [address] [place] [address] 09/26/2023 1:30 PM EDT Office Visit Orthopaedics [facility] [address] [place] [address] Zia Monsalve MD [address] [place] [address] 09/27/2023 2:30 PM EDT Imaging Radiology [facility]st [facility] [place] [address] [place] [address] 09/28/2023 6:10 PM EDT Pharmacy Pharmacy, [facility] [address] [place] [address] [facility] [place] [address] 10/10/2023 1:30 PM EDT Office Visit Interventional Pain Center, [facility] [address] [place] [address] Edgar Forde DO [address] [place] [phone] 12/28/2023 3:20 PM EDT Office Visit Family Practice [facility] [address] [place] [address] Ghada Salazar MD [address] [place] [address] 02/13/2024 10:40 AM EDT Office Visit Sleep Disorders Ctr [facility] [address] [place] [phone] Sofia Romo DO [address] [place] [address] Health Maintenance Due Date Last Done Comments [...] this encounter Medical Devices Implanted Type Area Cotton Wringer Device Identifier Shelf Expiration Date Model / Serial / Lot Mometasone Furoate Implant Min - [id number] Implanted:Qty: 1 on 07/18/2023 by Pat Umaña MD at OR [facility] Right: Nose GovDelivery 05/03/2024 [id number] / / [id number] documented as of this encounter Visit Diagnoses Diagnosis Type 2 diabetes mellitus with hemoglobin A1c goal of less than 7.0% (HCC) documented in this encounter Care Teams Clip Baker Relationship Specialty Start Date End Date Ghada Salazar MD [address] [facility] [place] [address] PCP - General Internal Medicine 04/04/22 documented as of this encounter
--- OUTSIDE RECORDS SUMMARY | 2023-09-21 18:51 | External Medical Summary ---
Author Name Unknown Address Unknown Organization K0G:[facility] [place] [address] [place] [address] Laboratory Report Ordering Provider Test Date Status CLARITZA LALA 09/16/2023 07:09:18 Final Observation Date Value Abnormality Reference (Units ) Status WBC, Total 09/16/2023 07:09:18 12.33 Above high normal 4 .00-10.80 (K/uL) Final RBC 09/16/2023 07:09:18 2.82 3.85-5.15 (M/uL) Final Hemoglobin 09/16/2023 07:09:18 8.1 Below low normal 12 .0-15.3 (g/dL) Final HCT 09/16/2023 07:09:18 25.9 Below low normal 36. 0-45.2 (%) Final MCV 09/16/2023 07:09:18 91.8 81.5-97.5 (fL) Final MCH 09/16/2023 07:09:18 28.7 27.0-34.0 (pg) Final MCHC 09/16/2023 07:09:18 31.3 32.0-36.0 (g/dL) Final RDW 09/16/2023 07:09:18 15.3 11.5-15.5 (%) Final Platelets 09/16/2023 07:09:18 410 Above high normal 14 0-400 (K/uL) Final MPV 09/16/2023 07:09:18 9.1 6.6-11.1 ( fL) Final Performing Location [facility] [place] [address] [place] [address]
--- OUTSIDE RECORDS SUMMARY | 2023-09-21 18:51 | External Medical Summary | Summary of Care ---
Author Name Unknown Organization [facility] Address [address] [place] [address] Phone [phone] Care Team Providers Care Geological Sample Tester Name Role Phone Ghada Salazar MD Primary Care Provider Reason for Visit * Reason Onset Date Comments Order Request 09/13/2023 FYI 09/13/2023 Encounter Details Date Type Department Care Team (Late st Contact Info) Description 09/13/2023 Telephone Family Practice [facility] [address] [place] [address] Ghada Salazar MD [address] [place] [phone] Order Request; Allergies No known active allergiesdocumented as of this encounter (statuses as of 09/16/2023) Medications Medication Sig Dispensed Refills Start Date End Date Status Aspirin EC 81 MG Oral Tablet Delayed ReleaseIndications: Type 2 diabetes mellitus with hemoglobin A1c goal of less than 7.0% ([facility]) Take 1 Tablet by mouth [...] goal of less than 7.0% ([facility]) Inject 16 Units under the [...] 05/29/2023 Active Additional Information Patient taking differently:2 [place] Each Nostril Daily(AM),Indications: as needed, Reported on 06/02/2023 Assure ID Duo Pro Pen [place] 31G X 5 MM (Insulin Pen Needle) [...] goal of less than 7.0% ([facility]) Use as directed. 1 Each [...] mRNA, LNP-s, No Pre serve, 2-Dose Series (SpinPunch) 02/01/2021,07/09/2020,06/16/2020 COVID-19, LNP-s, No Preserve , Perfecto-sucrose, Ages 12+ (SpinPunch) 07/05/2023,11/01/2021 Covid-19, Mrna, Lnp-s, Pf, B ivalent, [...] encounter Miscellaneous Notes * Telephone Encounter - Vashti Mcdonough OSA - 09/16/2023 2:52 PM EDT Daughter given status update. * Telephone Encounter - Ghada Salazar MD - 09/13/2023 5:01 PM EDT Jewel order signed * Telephone Encounter - Kristy Rooney, MED ASSIST - 09/13/2023 12:07 PM EDT Signed supply form from 07/19 refaxed along with last office note. * Telephone Encounter - Be Goyal CPhT - 09/13/2023 11:37 AM EDT Pt does follow [facility], but per Patient Message encounter on 2023 they are unable to just send anew Rx and need to receive a request from [facility] first. Pt spoke to [employer] this morning and states they will be sending a request over to the office. Please be on the lookout for this request and/or reach out to [employer]. Pt's daughter is also asking if an Rx for one sensor could be sent to [id number] in the meantime. An order was requested for this patient. Name of Requestor: Tasha Sauer Order Request: Diabetic testing supplies (FreeStyle Jewel Sensors) Diagnosis/Reason for Request: Blood Glucose Testing Does the order need to be sent somewhere? If so, where?: [facility], Call Back Number: [phone] (Josselyn Romo) Thank you, Be Goyal Meat Stock Clerk [facility] (CCPS) (Formerly Telepharmacy) 09/13/2023,11:37 AM documented in this encounter Plan of Treatment Upcoming Encounters Date Type Department Care Team (Late st Contact Info) Description 09/20/2023 2:00 PM EDT Office Visit [facility] [address] [place] [address] Juan Tovar MD [address] [place] [address] 09/26/2023 1:30 PM EDT Office Visit Orthopaedics [facility] [place] 132 [facility] [place] [address] Zia Monsalve MD [address] [place] [address] 09/27/2023 2:30 PM EDT Imaging Radiology [facility] 1st [facility] [place] [address] [place] [address] 10/10/2023 1:30 PM EDT Office Visit Interventional Pain Center, [facility] [address] [place] [address] Edgar Forde, DO [address] [place] [phone] 12/28/2023 3:20 PM EDT Office Visit Family Practice [facility] [address] [place] [address] Ghada Salazar MD [address] [place] [address] 02/13/2024 10:40 AM EDT Office Visit Sleep Disorders Ctr [facility] [address] [place] [phone] Sofia Romo, DO [address] [place] [address] Health Maintenance Due Date Last Done Comments Cologuard 1994 Colonoscopy 1994 Colorectal Cancer Screening 1994 Fecal Occult Blood Test 1994 Sigmoidoscopy 1994 Diabetic Foot Exam 05/20/2023 05/20/2022 COVID-19 Vaccine ( season) 2023 07/05/2023, 10/06/2022, 01/06/2022, Additional history exists PTH 09/23/2023 09/22/2022, 02/18/2022 HbA1c 12/13/2023 06/14/2023, 06/09/2022, 05/20/2022, Additional history exists Influenza Vaccine (FLU shot) (Season Ended) 2023 12/17/2021, 01/25/2021 Phosphate 12/30/2023 12/29/2022, 11/2022, 02/18/2022 Nephrology Referral [...] this encounter Medical Devices Implanted Type Area Manager Business Development Hospice Device Identifier Shelf Expiration Date Model / Serial / Lot Mometasone Furoate Implant Min - [id number] Implanted:Qty: 1 on 07/18/2023 by Pat Umaña MD at OR [facility] Right: Nose [employer]TEGRA [employer] MACK 05/03/2024 [id number] / / [id number] documented as of this encounter Visit Diagnoses Diagnosis Type 2 diabetes mellitus with hemoglobin A1c goal of less than 7.0% (HCC)- Primary documented in this encounter Care Teams Geological Sample Tester Relationship Specialty Start Date End Date Ghada Salazar MD [address] [place] [address] PCP - General Internal Medicine 04/04/22 documented as of this encounter
--- OUTSIDE RECORDS SUMMARY | 2023-09-21 18:52 | External Medical Summary | Summary of Care ---
Author Name Unknown Organization [facility] Address [address] [facility] [facility] [address] Phone [phone] Care Team Providers Care Tape Edge Machine Operator Name Role Phone Ghada Salazar MD Primary Care Provider Reason for Visit * Reason Onset Date Comments Order Request 09/13/2023 Encounter Details Date Type Department Care Team (Late st Contact Info) Description 09/13/2023 Telephone Family Practice [facility] [address] [place] [phone] Ghada Salazar MD [address] [place] [address] Order Request Allergies No known active allergiesdocumented as of this encounter (statuses as of 09/13/2023) Medications Medication Sig Dispensed Refills Start Date End Date Status Aspirin EC 81 MG Oral Tablet Delayed ReleaseIndications: Type 2 diabetes mellitus with hemoglobin A1c goal of less than 7.0% ([facility]) Take 1 Tablet by mouth [...] hemoglobin A1c goal of less than 7.0% ([facility]) Inject 16 Units under the [...] 05/29/2023 Active Additional Information Patient taking differently:2 [place] Each Nostril Daily(AM),Indications: as needed, Reported on 06/02/2023 Assure ID Duo Pro Pen [place] 31G X 5 MM (Insulin Pen Needle) [...] hemoglobin A1c goal of less than 7.0% ([facility]) Use as directed. 1 Each 09/13/2023 Active documented as of this encounter (statuses as of 09/13/2023) Active Problems Problem Noted Date Diagnosed Date [...] as of this encounter (statuses as of 09/13/2023) Resolved Problems Problem Noted Date Diagnosed Date Resolved Date Stage 3b chronic kidney disease (CKD) 02/09/2022 05/20/2022 Diabetic retinopathy associa nasra with type 2 diabetes mellitus 02/09/2022 05/20/2022 documented as of this encounter (statuses as of 09/13/2023) Immunizations Name Administration Dates Next Due COVID-19 mRNA, LNP-s, No Pre serve, 2-Dose Series (LearnSomething) 02/01/2021,07/09/2020,06/16/2020 COVID-19, LNP-s, No Preserve , Perfecto-sucrose, Ages 12+ (LearnSomething) 07/05/2023,11/01/2021 Covid-19, Mrna, Lnp-s, Pf, B ivalent, [...] encounter Miscellaneous Notes * Telephone Encounter - Ghada Salazar MD - 09/13/2023 5:01 PM EDT Jewel order signed * Telephone Encounter - Kristy Rooney MED ARTURO - 09/13/2023 12:07 PM EDT Signed supply form from 07/19 refaxed along with last office note. * Telephone Encounter - Be Goyal CPhT - 09/13/2023 11:37 AM EDT Pt does follow [facility], but per Patient Message encounter on 2023 they are unable to just send anew Rx and need to receive a request from [facility] first. Pt spoke to [employer] this morning and states they will be sending a request over to the office. Please be on the lookout for this request and/or reach out to [employer]. Pt's daughter is also asking if an Rx for one sensor could be sent to [id number] [place] [address] [facility] in the meantime. An order was requested for this patient. Name of Requestor: Tasha Sauer Order Request: Diabetic testing supplies (FreeStyle Jewel Sensors) Diagnosis/Reason for Request: Blood Glucose Testing Does the order need to be sent somewhere? If so, where?: [facility], Call Back Number: [phone] (Josselyn Romo) Thank you, Be Goyal Computer Networking Instructor Adjunct Centralized Clinical Pharmacy Services (CCPS) (Formerly Telepharmacy) 09/13/2023,11:37 AM documented in this encounter Plan of Treatment Upcoming Encounters Date Type Department Care Team (Late st Contact Info) Description 09/21/2023 2:00 PM EDT Office Visit Nephrology, Alber Dang [address] [place] [address] Juan Tovar MD [address] [place] [address] 09/21/2023 3:30 PM EDT Telemedicine Psychiatry, [facility] [address] [place] [address] Filemon Medina CRNP [address] [place] [address] 09/22/2023 3:45 PM EDT Telemedicine Orthopaedics [facility] [place] [address] [place] [address] Zia Monsalve MD [address] [place] [address] 09/26/2023 1:30 PM EDT Office Visit Orthopaedics [facility] [address] [place] [address] Zia Monsalve MD [address] [place] [address] 09/27/2023 2:30 PM EDT Imaging [facility] [address] [place] [address] 10/10/2023 1:30 PM EDT Office Visit Interventional Pain Center, [facility] [address] [place] [address] Edgar Forde, DO [address] [place] [address] 12/28/2023 3:20 PM EDT Office Visit Family Practice [facility] [address] [place] [address] Ghada Salazar MD [address] [place] [address] 02/13/2024 10:40 AM EDT Office Visit Sleep Disorders Ctr [facility] [address] [place] [phone] Sofia Romo, DO [address] [place] [address] Health Maintenance Due Date Last Done Comments Cologuard 1994 Colonoscopy 1994 Colorectal Cancer Screening 1994 Fecal Occult Blood Test 1994 Sigmoidoscopy 1994 Diabetic Foot Exam 05/20/2023 05/20/2022 COVID-19 Vaccine (8 - 2023-24 season) 2023 07/05/2023, 10/06/2022, 01/06/2022, Additional history [...] 03/02/2023, 02/10/2022 Mammogram 03/29/2024 03/29/2023, 1205/2021, 08/28/2013 Albumin/Creatinine Ratio 09/05/2024 09/06/2023, 110 07/2021 Lipid Panel 06/14/2028 06/14/2023, 0206/2022, 01/25/2021 DTaP,Tdap,and [...] this encounter Medical Devices Implanted Type Area Detacher Device Identifier Shelf Expiration Date Model / Serial / Lot Mometasone Furoate Implant Min - [id number] Implanted:Qty: 1 on 07/18/2023 by Pat Umaña MD at OR [facility] Right: Nose [employer]GRA [employer]ison [employer] MACK 05/03/2024 [id number] / / [id number] documented as of this encounter Visit Diagnoses Diagnosis Type 2 diabetes mellitus with hemoglobin A1c goal of less than 7.0% (HCC)- Primary documented in this encounter Care Teams Tape Edge Machine Operator Relationship Specialty Start Date End Date Ghada Salazar MD [address] [place] [address] PCP - General Internal Medicine 04/04/22 documented as of this encounter
--- OUTSIDE RECORDS SUMMARY | 2023-09-21 18:52 | External Medical Summary | Summary of Care ---
Author Name Unknown Organization [facility] Address [address] [place] [address] Phone [phone] Care Team Providers Care Quality Control Head Name Role Phone Ghada Salazar MD Primary Care Provider Encounter Details Date Type Department Care Team (Late st Contact Info) Description 09/10/2023 Result Scan Unspecified Department <No scans attached> Allergies No known active allergiesdocumented as of this encounter (statuses as of 09/15/2023) Medications Medication Sig Dispensed Refills Start Date [...] 05/29/2023 Active Additional Information Patient taking differently:2 [place] Each Nostril Daily(AM),Indications: as needed, Reported on 06/02/2023 Assure ID Duo Pro Pen [place] 31G X 5 MM (Insulin Pen Needle) [...] as of this encounter (statuses as of 09/15/2023) Active Problems Problem Noted Date Diagnosed Date [...] as of this encounter (statuses as of 09/15/2023) Resolved Problems Problem Noted Date Diagnosed Date Resolved Date Stage 3b chronic kidney disease (CKD) 02/09/2022 05/20/2022 Diabetic retinopathy associa nasra with type 2 diabetes mellitus 02/09/2022 05/20/2022 documented as of this encounter (statuses as of 09/15/2023) Immunizations Name Administration Dates Next Due COVID-19 mRNA, LNP-s, No Pre serve, 2-Dose Series (OnTheList) 02/01/2021,07/09/2020,06/16/2020 COVID-19, LNP-s, No Preserve , Perfecto-sucrose, Ages 12+ (On[employer]List) 07/05/2023,11/01/2021 Covid-19, Mrna, Lnp-s, Pf, B ivalent, 30 Mcg, IM, 12 yrs and above (OnTheList) 10/06/2022,01/06/2022 HEP A - Hepatitis A (Adult [...] Description 09/21/2023 2:00 PM EDT Office Visit NephrologyAlber [address] [place] [address] Juan Tovar MD [address] [place] [address] 09/21/2023 3:30 PM EDT Telemedicine Psychiatry, [facility] 132 [facility] [place] [address] Filemon Medina CRNP [address] [place] [address] 09/22/2023 3:45 PM EDT Telemedicine Orthopaedics [facility] 132 [facility] [place] [address] Zia Monsalve MD [address] [facility] [place] [address] 09/26/2023 1:30 PM EDT Office Visit [facility]opaedics [facility] [place] [address] Zia Monsalve MD [address] [place] [address] 09/27/2023 2:30 PM EDT Imaging Radiology [facility] 1st Floor, [place] [address] [place] [address] 10/10/2023 1:30 PM EDT Office Visit Interventional Pain Center, [facility] [address] [place] [address] Edgar Forde, DO [address] [place] [address] 12/28/2023 3:20 PM EDT Office Visit Family Practice [facility] [address] [place] [address] Ghada Salazar MD [address] [place] [address] 02/13/2024 10:40 AM EDT Office Visit Sleep Disorders Ctr [facility] [address] [place] [phone] Sofia Romo, [address] [place] [address] Health Maintenance Due Date Last Done Comments [...] this encounter Medical Devices Implanted Type Area Cod Clerk Device Identifier Shelf Expiration Date Model / Serial / Lot Mometasone Furoate Implant Min - [id number] Implanted:Qty: 1 on 07/18/2023 by Pat Umaña MD at OR [facility] Right: Nose [employer] 05/03/2024 [id number] / / [id number] documented as of this encounter Procedures Procedure Name Priority Date/Time Associated Diagnosis Comments ECHOCARDIOLOGY SCANNED RESULT 09/10/2023 documented in this encounter Results * ECHOCARDIOLOGY SCANNED RESULT (09/10/2023) 09/10/2023 No Physician Data Unknown ECHOCARDIOLOGY documented in this encounter Care Teams Quality Control Head Relationship Specialty Start Date End Date Ghada Salazar MD [address] [facility] [place] [address] PCP - General Internal Medicine 04/04/22 documented as of this encounter
--- OUTSIDE RECORDS SUMMARY | 2023-09-21 18:52 | External Medical Summary | Summary of Care ---
Author Name Unknown Organization [facility] Address [address] [place] [address] Phone [phone] Care Team Providers Care Vice President Of Communications Name Role Phone Ghada Salazar MD Primary Care Provider Reason for Visit * Reason Onset Date Comments Advice 09/12/2023 Ghada Salazar MD Encounter Details Date Type Department Care Team (Late st Contact Info) Description 09/12/[address] [facility] [address] [facility] [place] [address] Ghada Salazar MD [address] [place] [address] Advice (Ghada Salazar MD) Allergies No known active allergiesdocumented as of this encounter (statuses as of 09/15/2023) Medications Medication Sig Dispensed Refills Start Date End Date Status Aspirin EC 81 MG Oral Tablet Delayed ReleaseIndications: Type 2 diabetes mellitus with hemoglobin A1c goal of less than 7.0% ([facility]) Take 1 Tablet by mouth [...] hemoglobin A1c goal of less than 7.0% ([facility]) Inject 16 Units under the [...] 05/29/2023 Active Additional Information Patient taking differently:2 [place] Each Nostril Daily(AM),Indications: as needed, Reported on 06/02/2023 Assure ID Duo Pro Pen [place] 31G X 5 MM (Insulin Pen Needle) [...] mRNA, LNP-s, No Pre serve, 2-Dose Series ([employer]) 02/01/2021,07/09/2020,06/16/2020 COVID-19, LNP-s, No Preserve , Perfecto-sucrose, Ages 12+ (Pfizer) 07/05/2023,11/01/2021 Covid-19, Mrna, Lnp-s, Pf, B ivalent, 30 Mcg, IM, 12 yrs and above ([place]) 10/06/2022,01/06/2022 HEP A - Hepatitis A (Adult [...] Telephone Encounter - Ghada Salazar MD - 09/15/2023 12:40 PM EDT Noted, thank you! * Telephone Encounter - Jennifer Alvarado RN - 09/15/2023 11:21 AM EDT I spoke with [facility] today- turns out Tasha is admitted currently at [facility], and awaiting discharge to [facility]. * Telephone Encounter - Ghada Salazar MD - 09/13/2023 5:02 PM EDT Jennifer - can you check in on Tasha? Not sure what all she needs ordered from HH as I don't have discharge summary. Looks like she needs a discharge visit as well * Telephone Encounter - Terrence Manzo OSA - 09/12/2023 2:09 PM EDT Person calling: Maggie Relationship to patient: [facility] Number to return call: [phone] Reason for call(brief): Home Health Nurse Pharmacy: Provider Name:Ghada Salazar MD Detailed message to office:Maggie is calling to report that due to holiday weekend, they do not havea nurse to start at the pt home until 09/14/23 if this is ok, they need a new order to start the care on with date. ' documented in this encounter Plan of Treatment Upcoming Encounters Date Type Department Care Team (Late st Contact Info) Description 09/20/2023 2:00 PM EDT Office Visit Nephrology, [facility] [place] [address] [facility] [place] [address] Juan Tovar MD [address] [facility] [place] [address] 09/26/2023 1:30 PM EDT Office Visit Orthopaedics [facility] [address] [place] [address] Zia Monsalve MD [address] [place] [address] 09/27/2023 2:30 PM EDT Imaging Radiology [facility] [address] [place] [address] 10/10/2023 1:30 PM EDT Office Visit Interventional Pain Center, [facility] [address] [place] [address] Edgar Forde, DO [address] [place] [phone] 12/28/2023 3:20 PM EDT Office Visit Family Practice [facility] [address] [place] [address] Ghada Salazar MD [address] [place] [address] 02/13/2024 10:40 AM EDT Office Visit Sleep Disorders Ctr [facility] [address] [place] [phone] Sofia Romo, DO [address] [place] [address] Health Maintenance Due Date Last Done Comments [...] 09/20/2022, Additional history exists Phosphate 12/30/2023 12/29/2022, 0611/2022, 02/18/2022 Nephrology Referral [...] this encounter Medical Devices Implanted Type Area Broke Handler Device Identifier Shelf Expiration Date Model / Serial / Lot Mometasone Furoate Implant Min - [id number] Implanted:Qty: 1 on 07/18/2023 by Pat Umaña MD at OR [facility] Right: Nose [employer] MACK 05/03/2024 [id number] / / [id number] documented as of this encounter Care Teams Vice President Of Communications Relationship Specialty Start Date End Date Ghada Salazar MD [address] [place] [address] PCP - General Internal Medicine 04/04/22 documented as of this encounter
--- OUTSIDE RECORDS SUMMARY | 2023-09-21 18:52 | External Medical Summary | Summary of Care ---
Author Name Unknown Organization [facility] [address] [facility] [address] Phone [phone] Care Team Providers Care Mechanical And Auto Body Car Checker Name Role Phone Ghada Salazar MD Primary Care Provider Encounter Details Date Type Department Care Team (Late st Contact Info) Description 09/15/2023 Orders Only Family Practice [facility] [address] [place] [address] Ghada Salazar MD [address] [place] [address] Allergies No known active allergiesdocumented as of this encounter (statuses as of 09/15/2023) Medications Medication Sig Dispensed Refills Start Date End Date Status Aspirin EC 81 MG Oral Tablet Delayed ReleaseIndications: Type 2 diabetes mellitus with hemoglobin A1c goal of less than 7.0% ([facility]) Take 1 Tablet by mouth in [...] 05/29/2023 Active Additional Information Patient taking differently:2 [place] Each Nostril Daily(AM),Indications: as needed, Reported on 06/02/2023 Assure ID Duo Pro Pen [place] 31G X 5 MM (Insulin Pen [...] hemoglobin A1c goal of less than 7.0% ([facility]) Use as directed. 1 Each 09/13/2023 [...] mRNA, LNP-s, No Pre serve, 2-Dose Series ([employer]) 02/01/2021,07/09/2020,06/16/2020 COVID-19, LNP-s, No Preserve , Perfecto-sucrose, Ages 12+ (Pfizer) 07/05/2023,11/01/2021 Covid-19, Mrna, Lnp-s, Pf, B ivalent, 30 Mcg, IM, 12 yrs and above ([employer]) 10/06/2022,01/06/2022 HEP A - Hepatitis A (Adult [...] EDT Office Visit NephrologyAlber [address] [place] [address] Juan Tovar MD [address] [place] [address] 09/21/2023 3:30 PM EDT Telemedicine Psychiatry, [facility] [address] [facility] [place] [address] Filemon Medina CRNP [address] [facility] [place] [address] 09/22/2023 3:45 PM EDT Telemedicine Orthopaedics [facility] [place] [address] [facility] [place] [address] Zia Monsalve MD [address] [place] [address] 09/26/2023 1:30 PM EDT Office Visit Orthopaedics [facility] [address] [place] [address] Zia Monsalve MD [address] [place] [address] 09/27/2023 2:30 PM EDT Imaging [facility] [address] [place] [address] 10/10/2023 1:30 PM EDT Office Visit Interventional Pain Center, [facility] [address] [place] [address] Edgar Forde, DO [address] [place] [address] 12/28/2023 3:20 PM EDT Office Visit Family Practice [facility] [address] [place] [address] Ghada Salazar MD [address] [place] [address] 02/13/2024 10:40 AM EDT Office Visit Sleep Disorders Ctr [facility] [address] [place] [phone] Sofia Romo, [address] [place] [address] Health Maintenance Due Date Last Done Comments [...] 09/06/2023, 110 07/2021 Lipid Panel 06/14/2028 06/14/2023, 020 06/2022, 01/25/2021 [...] this encounter Medical Devices Implanted Type Area Car And Yard Supervisor Device Identifier Shelf Expiration Date Model / Serial / Lot Mometasone Furoate Implant Min - [id number] Implanted:Qty: 1 on 07/18/2023 by Pat Umaña MD at OR [facility] Right: Nose [employer] MACK 05/03/2024 [id number] / / [id number] documented as of this encounter Procedures Procedure Name Priority Date/Time Associated Diagnosis Comments CT CHEST WO CONTRAST Routine 09/09/2023 documented in this encounter Results * CT CHEST WO CONTRAST (09/09/2023) Anatomical Region Laterality Modality Chest, Body, Cardio Other 09/09/2023 Jordi Levin MD RAD CT documented in this encounter Care Teams Mechanical And Auto Body Car Checker Relationship Specialty Start Date End Date Ghada Salazar MD [address] [facility] [place] [address] PCP - General Internal Medicine 04/04/22 documented as of this encounter
--- OUTSIDE RECORDS SUMMARY | 2023-09-21 18:52 | External Medical Summary | Summary of Care ---
Author Name Unknown Organization [facility] Address [address] [place] [address] Phone [phone] Care Team Providers Care Nuclear Medicine Pet Ct Technologist Name Role Phone Ghada Salazar MD Primary Care Provider Encounter Details Date Type Department Care Team (Late st Contact Info) Description 09/12/2023 4:00 PM EDT Scheduled Telephone Care Coordination and Integration [address], [place] [id number] Sobeida Degroot, LINDSEY [address], [place] [id number] Allergies No known active allergiesdocumented as of this encounter (statuses as of 09/12/2023) Medications Medication Sig Dispensed Refills Start Date [...] of less than 7.0% ([facility]) Inject 16 Units under the [...] 05/29/2023 Active Additional Information Patient taking differently:2 [place] Each Nostril Daily(AM),Indications: as needed, Reported on 06/02/2023 Assure ID Duo Pro Pen [place] 31G X 5 MM (Insulin Pen Needle) [...] as of this encounter (statuses as of 09/12/2023) Active Problems Problem Noted Date Diagnosed Date [...] as of this encounter (statuses as of 09/12/2023) Resolved Problems Problem Noted Date Diagnosed Date Resolved Date Stage 3b chronic kidney disease (CKD) 02/09/2022 05/20/2022 Diabetic retinopathy associa nasra with type 2 diabetes mellitus 02/09/2022 05/20/2022 documented as of this encounter (statuses as of 09/12/2023) Immunizations Name Administration Dates Next Due COVID-19 mRNA, LNP-s, No Pre serve, 2-Dose Series ([employer]) 02/01/2021,07/09/2020,06/16/2020 COVID-19, LNP-s, No Preserve , Perfecto-sucrose, Ages 12+ ([employer]) 07/05/2023,11/01/2021 Covid-19, Mrna, Lnp-s, Pf, B ivalent, 30 Mcg, IM, 12 yrs and above ([employer]) 10/06/2022,01/06/2022 HEP A - Hepatitis A (Adult [...] as of this encounter Progress Notes * Sobeida Degroot OSA - 09/12/2023 4:32 PM EDT Telemedicine visit: No Community Health Restaurant Shift Leader (EDWIN) documentation: Outbound call to patient [facility] Unable to leave message Sobeida Degroot [facility] Community Health Worker Call or Text- [phone] documented in this encounter Plan of Treatment Upcoming Encounters Date Type Department Care Team (Late st Contact Info) Description 09/21/2023 2:00 PM EDT Office Visit Alber [address] [place] [address] Juan Tovar MD [address] [place] [address] 09/21/2023 3:30 PM EDT Telemedicine Psychiatry, [facility] [address] [place] [address] Filemon Medina CRNP [address] [place] [address] 09/22/2023 3:45 PM EDT Telemedicine Orthopaedics [facility] [address] [place] [address] Zia Monsalve MD [address] [place] [address] 09/26/2023 1:30 PM EDT Office Visit Orthopaedics [facility] [address] [facility] [place] [address] Zia Monsalve MD [address] [facility] [place] [address] 09/27/2023 2:30 PM EDT Imaging [facility] [address] [facility] [address] 10/10/2023 1:30 PM EDT Office Visit Interventional Pain Center, [facility] [address] [facility] [place] [address] Edgar Forde DO [address] [place] [address] 12/28/2023 3:20 PM EDT Office Visit Family Practice [facility] [address] [place] [address] Ghada Salazar MD [address] [place] [address] 02/13/2024 10:40 AM EDT [facility] [address] [place] [phone] Sofia Romo DO [address] [place] [address] Health Maintenance Due Date Last Done Comments [...] 03/29/2023, 05/2021, 08/28/2013 Albumin/Creatinine Ratio 09/05/2024 09/06/2023, 1107/2021 Lipid Panel 06/14/2028 06/14/2023, 06/2022, 01/25/2021 DTaP,Tdap,and [...] this encounter Medical Devices Implanted Type Area Radiator Specialist Device Identifier Shelf Expiration Date Model / Serial / Lot Mometasone Furoate Implant Min - [id number] Implanted:Qty: 1 on 07/18/2023 by Pat Umaña MD at [facility] Right: Nose [employer] MACK 05/03/2024 [id number] / / [id number] documented as of this encounter Care Teams Nuclear Medicine Pet Ct Technologist Relationship Specialty Start Date End Date Ghada Salazar MD [address] [place] [address] PCP - General Internal Medicine 04/04/22 documented as of this encounter
--- OUTSIDE RECORDS SUMMARY | 2023-09-21 21:03 | External Medical Summary | Summary of Care ---
Author Name Unknown Organization [facility] Address [address] [place] [address] Phone [phone] Care Team Providers Care [employer] Cell[employer] Receiver Name Role Phone Ghada Salazar MD Primary Care Provider Reason for Visit * Reason Comments Hospital Follow-Up KAVITA (Acute Kidney Injury) Chronic Kidney Disease (CKD) Hypertension Encounter Details Date Type Department Care Team (Late st Contact Info) Description 09/20/2023 2:00 PM EDT Office Visit Nephrology, Alber Dang [address] [place] [phone] Juan Tovar MD [address] [place] [address] KAVITA (acute kidney injury) (HCC)*; CKD (chronic kidney disease) stage 5, GFR less than 15 ml/min ([facility]); HTN, goal below 140/90 Allergies No known active allergiesdocumented as of this encounter (statuses as of 09/20/2023) Medications Medication Sig Dispensed Refills Start Date End Date Status Aspirin EC 81 MG Oral Tablet Delayed ReleaseIndications: Type 2 diabetes mellitus with hemoglobin A1c goal of less than 7.0% ([facility]) Take 1 Tablet by mouth [...] goal of less than 7.0% ([facility]) Inject 16 Units under the skin every morning. 15 mL 3 04/28/2022 Active Additional Information Patient not taking.Reported on 09/20/2023 Fish Oil 1000 MG Oral Capsule Delayed [...] every evening. 90 Tablet 1 05/10/2023 Active Additional Information Patient not taking.Reported on 09/20/2023 Fluticasone Propionate 50 MCG/ACT Nasal Suspension (Flonase)Indication s:Post-nasal drip Administer 2 Sprays into each nostril in the morning. 9.9 mL 3 05/29/2023 Active Additional Information Patient taking differently:2 [place] Each Nostril Daily(AM),Indications: as needed, Reported on 06/02/2023 Assure ID Duo Pro Pen Cornish 31G X 5 MM (Insulin Pen Needle) Use pen needles for insulin injection three times daily E11.9 300 Each 3 06/16/2023 Active Additional Information Patient not taking.Reported on 09/20/2023 amLODIPine Besylate 5 MG Oral Tablet (Norvasc)Indication s:HTN, goal below 130/80 Take 1 Tablet by mouth in the morning. 30 Tablet 11 06/29/2023 Active Gabapentin 600 MG Oral Tablet (Neurontin) Take 1 Tablet by mouth in the morning and 1 Tablet before bedtime. 60 Tablet 5 06/29/2023 Active Additional Information Patient not taking.Reported on 09/20/2023 Telmisartan 80 MG Oral Tablet (Micardis)Indicatio ns:HTN, goal below 130/80 TAKE 1 TABLET BY MOUTH EVERY DAY IN THE MORNING 90 Tablet 1 06/29/2023 Active Additional Information Patient not taking.Reported on 09/20/2023 HumaLOG KwikPen 100 UNIT/ML Subcutaneous Solution Pen-injector Inject 18 Units under the skin in the morning and 18 Units at noon and 18 Units in the evening. Inject with meals. 15 mL 3 07/17/2023 Active Additional Information Patient taking differently:18 Units Subcutaneous WITH MEALS,While at [facility] sliding scale, Reported on 09/20/2023 FLUoxetine HCl 40 MG Oral Capsule (PROzac) [...] goal of less than 7.0% ([facility]) Use as directed. 1 Each 09/13/2023 Active Omeprazole 40 MG Oral Capsule Delayed Release (PriLOSEC)Indicatio ns:Hiatal hernia Take 1 Capsule by mouth in the morning. 1 hour before the first meal of the day. 30 Capsule 5 09/18/2023 Active Additional Information Patient not taking.Reported on 09/20/2023 Gabapentin 300 MG Oral Capsule (Neurontin) Take 1 Capsule by mouth in the morning and 1 Capsule before bedtime. Active Insulin Glargine 100 UNIT/ML Subcutaneous Solution (Lantus) Inject under the skin daily. 10 units Active levoFLOXacin 500 MG Oral Tablet (Levaquin) Take 1 Tablet by mouth in the morning. Every other day x 3 days . Active hydrALAZINE HCl 100 MG Oral Tablet Take 1 Tablet by mouth in the morning. Active Sodium Zirconium Cyclosilicate 10 GM Oral Packet (Lokelma) Take 1 Packet by mouth. Active Atorvastatin Calcium 20 MG Oral Tablet (Lipitor) Take 1 Tablet by mouth at bedtime. Active Ondansetron HCl 4 MG Oral Tablet Take 1 Tablet by mouth every 8 hours as needed for Nausea. Per [facility] giving every 4 hours as needed Active documented as of this encounter (statuses as of 09/20/2023) Active Problems Problem Noted Date Diagnosed Date [...] as of this encounter (statuses as of 09/20/2023) Resolved Problems Problem Noted Date Diagnosed Date Resolved Date Stage 3b chronic kidney disease (CKD) 02/09/2022 05/20/2022 Diabetic retinopathy associa nasra with type 2 diabetes mellitus 02/09/2022 05/20/2022 documented as of this encounter (statuses as of 09/20/2023) Immunizations Name Administration Dates Next Due COVID-19 mRNA, LNP-s, No Pre serve, 2-Dose Series ([employer]) 02/01/2021,07/09/2020,06/16/2020 COVID-19, LNP-s, No Preserve , Perfecto-sucrose, Ages 12+ (Pfizer) 07/05/2023,11/01/2021 Covid-19, Mrna, Lnp-s, Pf, B ivalent, 30 Mcg, IM, 12 yrs and above ([employer]) 10/06/2022,01/06/2022 HEP A - Hepatitis A (Adult [...] Sign Reading Time Taken Comments Blood Pressure 116/34 09/20/2023 2:07 PM EDT Pulse 73 09/20/2023 2:07 PM EDT Temperature 36.9 C (98.5 F) 09/20/2023 2:07 PM ED T Respiratory Rate 22 09/20/2023 2:07 PM EDT Oxygen Saturation 90% 09/20/2023 2:07 PM EDT Inhaled Oxygen Concentration - - Weight - - Height - - Body Mass Index - - documented in this encounter Progress Notes * Juan Tovar MD - 09/20/2023 2:28 PM EDT Chief Complaint Patient presents with Hospital Follow-Up KAVITA (Acute Kidney Injury) Chronic Kidney Disease (CKD) Hypertension HPI: 73-year-old female longstanding history of uncontrolled diabetes with known diabetic retinopathy neuropathy worsening CKD with proteinuria. .No history of cardiac problem kidney stone childhood kidney disease or family history of ESRD. Her father did have some kidney failure after the AAA repair She just moved from [place] where she lived all her life. Her daughter lives here. Other medical problems includes hypertension depression and hyperlipidemia. As per the patient for a while patient did not really care about her health and medication because severe depression. Since last visit ----she was admitted in [facility] where I did see her. Her renal function is running worse than before. She was admitted after failed outpatient treatment of respiratory symptoms. Imaging showed pneumonia. She initially got some IV fluid but kidney function never really improved that much. After stabilization of renal function at a higher creatinine level she was discharged to [facility]. She has been there for only 6 days. She has had labs done almost every day and creatinine continues to get worse. Blood work from yesterday shows a creatinine of 3.8. Even though she was discharged on torsemide 20 she has not received that every day at the rehab. She is here with her daughter. Patient is very somnolent weak is having myoclonic jerk feels very cold has nausea and poor appetite. She can barely keep her eyes open. NSAID No Renal Stone Yes, incidental finding on ultrasound Herbal Medication No Urinary Complaints Yes, overactive bladder and takes Ditropan. Current Outpatient Medications Medication Sig Dispense Refill [...] 6 hours as needed for Pain, Moderate. Fish Oil 1000 MG Oral Capsule Delayed Release Take 1 Capsule by mouth in the morning. oxyBUTYnin Chloride 5 MG Oral Tablet (Ditropan) TAKE 1 TABLET BY MOUTH EVERY DAY IN THE MORNING 90 Tablet 3 Fluticasone Propionate 50 MCG/ACT Nasal Suspension (Flonase) Administer 2 Sprays into each nostril in the morning. (Patient taking differently: Administer 2 Sprays into each nostril in the morning.) 9.9 mL 3 amLODIPine Besylate 5 MG Oral Tablet (Norvasc) Take 1 Tablet by mouth in the morning. 30 Tablet 11 FLUoxetine HCl 40 MG Oral Capsule (PROzac) Take 1 Capsule by mouth in the morning. 30 Capsule 2 Azithromycin 250 MG Oral Tablet (Zithromax Z-Evens) Take two tablets by mouth on first day, then 1 tablet daily until gone 6 Tablet 0 FreeStyle Jewel 2 Sensor Use as directed. 1 Each 0 Gabapentin 300 MG Oral Capsule (Neurontin) Take 1 Capsule by mouth in the morning and 1 Capsule before bedtime. Insulin Glargine 100 UNIT/ML Subcutaneous Solution (Lantus) Inject under the skin daily. 10 units levoFLOXacin 500 MG Oral Tablet (Levaquin) Take 1 Tablet by mouth in the morning. Every other day x3 days . hydrALAZINE HCl 100 MG Oral Tablet Take 1 Tablet by mouth in the morning. Sodium Zirconium Cyclosilicate 10 GM Oral Packet (Lokelma) Take 1 Packet by mouth. Atorvastatin Calcium 20 MG Oral Tablet (Lipitor) Take 1 Tablet by mouth at bedtime. Ondansetron HCl 4 MG Oral Tablet Take 1 Tablet by mouth every 8 hours as needed for Nausea. Per [facility] giving every 4 hours as needed Toujeo Max SoloStar 300 UNIT/ML Subcutaneous Solution Pen-injector (Insulin Glargine (2 Unit Dial))Inject 16 Units under the skin every morning. (Patient not taking: Reported on 09/20/2023) 15 mL 3 Cetirizine HCl 10 MG Oral Tablet Chewable (ZyrTEC) Take 1 Tablet by mouth in the morning. (Patient not taking: Reported on 09/20/2023) Rosuvastatin Calcium 10 MG Oral Tablet (Crestor) Take 1 Tablet by mouth every evening. (Patient nottaking: Reported on 09/20/2023) 90 Tablet 1 Assure ID Duo Pro Pen Cornish 31G X 5 MM (Insulin Pen Needle) Use pen needles for insulin injectionthree times daily E11.9 (Patient not taking: Reported on 09/20/2023) 300 Each 3 Gabapentin 600 MG Oral Tablet (Neurontin) Take 1 Tablet by mouth in the morning and 1 Tablet beforebedtime. (Patient not taking: Reported on 09/20/2023) 60 Tablet 5 Telmisartan 80 MG Oral Tablet (Micardis) TAKE 1 TABLET BY MOUTH EVERY DAY IN THE MORNING (Patient not taking: Reported on 09/20/2023) 90 Tablet 1 HumaLOG KwikPen 100 UNIT/ML Subcutaneous Solution Pen-injector Inject 18 Units under the skin in the morning and 18 Units at noon and 18 Units in the evening. Inject with meals. (Patient taking differently: Inject 18 Units under the skin in the morning and 18 Units at noon and 18 Units in the evening. Inject with meals. While at [facility] sliding scale .) 15 mL 3 Omeprazole 40 MG Oral Capsule Delayed Release (PriLOSEC) Take 1 Capsule by mouth in the morning. 1 hour before the first meal of the day. (Patient not taking: Reported on 09/20/2023) 30 Capsule 5 No current facility-administered medications for this visit. Past Medical History: Diagnosis Date Dental disease Diabetic retinopathy associated with type 2 diabetes mellitus (HCC) 02/09/2022 Dizziness Dyslipidemia, goal LDL below 100 02/09/2022 Fatigue HTN (hypertension) Motion sickness Obesity PONV (postoperative nausea and vomiting) Severe episode of recurrent major depressive disorder (HCC) 02/09/2022 Sleep apnea CPAP - intermittent use Stage 3b chronic kidney disease (CKD) (HCC) 02/09/2022 Type 2 diabetes mellitus with hemoglobin A1c goal of less than 7.0% ([facility]) 02/09/2022 Vitamin D deficiency 02/09/2022 Past Surgical History: Procedure Laterality Date EGD, FLEXIBLE, DIAGNOSTIC N/A 06/07/2023 ESOPHAGOGASTRODUODENOSCOPY (EGD), FLEXIBLE, TRANSORAL, [facility]ST[facility] INFORMATION 2008 hysterectomy INFORMATION 2015 colonoscopy INFORMATION Left 2002 knee arthroscopy IRRIGATION OF SPHENOID SINUS Right 07/18/2023 IRRIGATION SPHENOID SINUS performed by Pat Umaña MD at OR [facility] NASAL ENDOSCOPY,TOTAL ETHMOIDECTOMY Right 07/18/2023 NASAL SINUS ENDOSCOPY WITH ETHMOIDECTOMY TOTAL performed by Pat Umaña MD at OR [facility] NASAL/SINUS ENDOSCOPY, SURGICAL Right 07/18/2023 NASAL SINUS ENDOSCOPY SPHENOIDOTOMY REMOVE TISSUE performed by Pat Umaña MD at OR [facility] STEREOTACTIC CRANIAL EXTRADURAL NAVIGATION N/A 07/18/2023 STEREOTACTIC CRANIAL EXTRADURAL NAVIGATION performed by Pat Umaña MD at OR [facility] THERAPEUTIC FRACTURE OF NOSE Right 07/18/2023 FRACTURE OF NASAL TURBINATES THERAPEUTIC performed by Pat Umaña MD at OR [facility] Review of patient's allergies indicates: No Known Allergies Family History Problem Relation Name Age of Onset Other (Cerebral Hemorrhage) Mother Kristina Rodriguez Diabetes Mother Kristina Rodriguez Hypertension Mother Kristina Rodriguez Stroke Mother Kristina Rodriguez Other (AAA) Father Breast Cancer Daughter 43 Family History of Renal Disease Yes, father had kidney failure after AAA repair. But no diabetic ESRD. Social History Socioeconomic History Marital status: Single Spouse name: Not on file Number of children: Not on file Years of education: Not on file Highest education level: Not on file Occupational History Not on file Tobacco Use Smoking status: Never Smokeless tobacco: Never Vaping Use Vaping status: Never Used Substance and Sexual Activity Alcohol use: Yes Comment: rarely Drug use: Never Sexual activity: Not Currently Partners: Male Other Topics Concern Not on file Social History Narrative Not on file Social Determinants of Health Financial Resource Strain: Not on file Food Insecurity: No Food Insecurity (09/07/2023) Hunger Vital Sign Worried About Running Out of Food in the Last Year: Never true Ran Out of Food in the Last Year: Never true Transportation Needs: Not on file Physical Activity: Not on file Stress: Not on file Social Connections: Not on file Intimate Partner Violence: Not on file Housing Stability: Not on file Ambulation: Walker Review of Systems: Twelve systems reviewed and negative OBJECTIVE:PHYSICAL EXAM: BP 116/34 (BP Site: Right Arm, BP Position: Sitting, BP Cuff Size: Large) | Pulse 73 | Temp 36.9 C (98.5 F) (Skin) | Resp 22 | SpO2 90% General: alert and no distress Head: No masses, lesions, tenderness or abnormalities Heart: regular rate & rhythm, no murmur and no gallops Lungs: normal respiratory rate and rhythm, lungs clear to auscultation Abdomen: abdomen soft and non-tender Back: no costovertebral angle tenderness Extremities: Trace edema. Bilateral leg with erythematous rash secondary to eczema Neuro Exam: alert & oriented x 3 with fluent speech, no focal motor/sensory deficits BP Readings from Last 4 Encounters: 09/20/23 116/34 09/07/23 138/70 09/02/23 104/58 07/18/23 137/99 Wt Readings from Last 4 Encounters: 09/02/23 94.6 kg (208 lb 9.6 oz) 08/04/23 103.9 kg (229 lb) 07/25/23 103.9 kg (229 lb) 07/18/23 103.9 kg (229 lb) Estimated body mass index is 40.74 kg/m as calculated from the following: Height as of 09/02/23: 1.524 m (5'). Weight as of 09/02/23: 94.6 kg (208 lb 9.6 oz). NEPH-FLOW Latest Ref Rng & Units 01/25/2021 12/06/2021 02/09/2022 Bun 6 - 20 mg/dL 32 (H) Cr 0.5 - 1.0 mg/dL 1.36 (A) 2.19 (A) 1.8 (H) eGFR >=60 mL/min 23 (L) 29 (L) K 3.5 - 5.1 mmol/L 3.7 4.0 4.4 Hb 11.7 - 15.5 G/DL 13.2 12.5 ASSESSMENT: KAVITA (acute kidney injury) (HCC) (Primary) Even though we have labeled her as having KAVITA in the setting of pneumonia with background CKD 4. But her renal function has not improved and actually has got worse despite holding diuretics ARB and even given IV fluids From now on will not level as KAVITA but more CKD 4 which has progressed to CKD 5 with uremic symptoms CKD (chronic kidney disease) stage 5, GFR less than 15 ml/min ([facility]) At this point I believes she has progressed to CKD 5 with uremic symptoms. Underlying CKD is from classic diabetic nephropathy. She already has retinopathy and neuropathy as well as high-grade proteinuria She has classic symptoms of uremia like myoclonic jerk nausea extremely cold feeling weakness and extreme sleepiness. Even though her creatinine is not that bad at 3.8 cause classic uremic symptoms longstanding classic diabetic nephropathy patients can have uremic symptoms even at supposedly higherGFR. Also creatinine based formula could be over estimating her GFR Will also check by Cystatin C She also has significant edema and likely need diuretics It is quite possible that I will be starting her on chronic dialysis in the hospital. Patient is extremely somnolent which can be from uremia. I discussed with Dr. Mcgee at the [facility] about her clinical situation. For now she will be sent back to [facility] but most likely she will be sent back to [facility] for further management which may include dialysis. - CYSTATIN C WITH EGFR; Future; Expected date: 09/20/2023 - CYSTATIN C WITH EGFR - PTH; Future; Expected date: 09/20/2023 - RENAL FUNCTION PANEL; Future; Expected date: 09/20/2023 HTN, goal below 140/90 Blood pressure is at goal. Renal cyst Repeat Renal ultrasound in 6 months from now. Shows stable multiple bilateral cysts. Check-out note: Follow-up to be decided after hospital discharge. Patient is being sent back to [facility] and from there most likely will be sent over to [facility]. I spent a total of Greater than 55 mins (exact time 57 mins) on the date of service in preparation,delivery, and documentation of the care provided to Tasha Sauer excluding any time spent in the performance of separately billed services. Juan Tovar MD documented in this encounter Nursing Notes * Paola Noonan LPN - 09/20/2023 1:51 PM EDT Patient identified by verbal name and date of .Hospital follow up for KAVITA To dicuss dialysis options Currently in [facility] documented in this encounter Plan of Treatment Upcoming Encounters Date Type Department Care Team (Late st Contact Info) Description 09/26/2023 1:30 PM EDT Office Visit Orthopaedics [facility] [address] [place] [phone] Zia Monsalve MD [address] [place] [phone] 09/27/2023 2:30 PM EDT Imaging Radiology [facility] 1st Floor, [place] [address] [place] [phone] 09/28/2023 6:10 PM EDT Pharmacy Pharmacy, [facility] [address] [place] [phone] [facility] [address] [place] [phone] 10/10/2023 1:30 PM EDT Office Visit Interventional Pain Center, [facility] [address] [place] [phone] Edgar Forde DO [address] [place] [phone] 12/28/2023 3:20 PM EDT Office Visit Family Practice [facility] [address] [place] [phone] Ghada Salazar MD [address] [place] [address] 02/13/2024 10:40 AM EDT Office Visit Sleep Disorders Ctr [facility] [address] [place] [phone] Sofia Romo DO [address] [place] [phone] Pending Results Name Type Priority Associated Diagnoses Date /Time CYSTATIN C WITH EGFR Lab Routine CKD (chronic kidney disease) stage 5, GFR less than 15 ml/min (HCC) 09/20/2023 2:24 PM EDT Scheduled Orders Name Type Priority Associated Diagnoses Orde r Schedule CYSTATIN C WITH EGFR Lab Routine CKD (chronic kidney disease) stage 5, GFR less than 15 ml/min (HCC) Expected: 09/20/2023, Expires: 09/19/2024 PTH Lab Routine CKD (chronic kidney disease) stage 5, GFR less than 15 ml/min (HCC) Expected: 09/20/2023 (Approximate), Expires: 03/18/2024 RENAL FUNCTION PANEL Lab Routine CKD (chronic kidney disease) stage 5, GFR less than 15 ml/min (HCC) Expected: 09/20/2023 (Approximate), Expires: 03/18/2024 Health Maintenance Due Date Last Done Comments Cologuard 1994 Colonoscopy 1994 Colorectal Cancer Screening 1994 Fecal Occult Blood Test 1994 Sigmoidoscopy 1994 Diabetic Foot Exam 05/20/2023 05/20/2022 COVID-19 Vaccine ( season) 2023 07/05/2023, 07/05/2023, 01/25/2023, Additional history exists PTH 09/23/2023 09/22/2022, 02/18/2022 HbA1c 12/13/2023 06/14/2023, 06/0 09/2022, 05/20/2022, Additional history exists Influenza Vaccine (FLU shot) (Season Ended) 2023 12/17/2021, 01/25/2021 Phosphate 12/30/2023 12/29/2022, 0 11/2022, 02/18/2022 Diabetic Eye Exam 03/02/2024 03/02/2023, 02/10/2022 GFR 03/20/2024 09/19/2023, 0 06/2023, 09/17/2023, Additional history exists Mammogram 03/29/2024 03/29/2023, 05/2021, 08/28/2013 Albumin/Creatinine Ratio 09/05/2024 09/06/2023, 07/2021 Hgb 09/15/2024 09/16/2023, 12/16, 09/22/2022, Additional history exists Nephrology Referral 09/19/2024 09/20/2023 Lipid Panel 06/14/2028 06/14/2023, 06/2022, 01/25/2021 DTaP,Tdap,and [...] this encounter Medical Devices Implanted Type Area Pharmacist Device Identifier Shelf Expiration Date Model / Serial / Lot Mometasone Furoate Implant Min - [id number] Implanted:Qty: 1 on 07/18/2023 by Pat Uamña MD at OR [facility] Right: Nose [employer] 05/03/2024 [id number] / / [id number] documented as of this encounter Visit Diagnoses Diagnosis KAVITA (acute kidney injury) (HCC)- Primary Acute kidney failure, unspecified CKD (chronic kidney disease) stage 5, GFR less than 15 ml/min (HCC) Chronic kidney disease, Stage V HTN, goal below 140/90 Unspecified essential hypertension documented in this encounter Care Teams [employer] Cell[employer] Receiver Relationship Specialty Start Date End Date Ghada Salazar MD [address] [place] [phone] PCP - General Internal Medicine 04/04/22 documented as of this encounter"
--- OUTSIDE RECORDS SUMMARY | 2023-09-21 21:03 | External Medical Summary | Summary of Care ---
Author Name Unknown Organization [facility] Address [address] [place] [address] Phone [phone] Care Team Providers Care Administrative Court Justice Name Role Phone Ghada Salazar MD Primary Care Provider Reason for Visit * Reason Comments Hospital Follow-Up KAVITA (Acute Kidney Injury) Chronic Kidney Disease (CKD) Hypertension Encounter Details Date Type Department Care Team (Late st Contact Info) Description 09/20/2023 2:00 PM EDT Office Visit Nephrology, Alber Dang [address] [facility] [place] [address] Juan Tovar MD [address] [facility] [place] [address] KAVITA (acute kidney injury) (HCC)*; CKD (chronic kidney disease) stage 5, GFR less than 15 ml/min ([facility]); HTN, goal below 140/90 Allergies No known active allergiesdocumented as of this encounter (statuses as of 09/20/2023) Medications Medication Sig Dispensed Refills Start Date End Date Status Aspirin EC 81 MG Oral Tablet Delayed ReleaseIndications: Type 2 diabetes mellitus with hemoglobin A1c goal of less than 7.0% ([facility]) Take 1 Tablet by mouth [...] A1c goal of less than 7.0% ([facility]) Inject 16 Units under the [...] 05/29/2023 Active Additional Information Patient taking differently:2 [place] Each Nostril Daily(AM),Indications: as needed, Reported on 06/02/2023 Assure ID Duo Pro Pen [place] 31G X 5 MM (Insulin Pen Needle) [...] A1c goal of less than 7.0% ([facility]) Use as directed. 1 Each [...] Oral Packet (Lokelma) Take 1 Packet by mouth in the morning. Active Atorvastatin Calcium 20 MG Oral Tablet (Lipitor) Take 1 Tablet by mouth at bedtime. Active Ondansetron HCl 4 MG Oral Tablet Take 1 Tablet by mouth every 8 hours as needed for Nausea. Per [facility] giving every 4 hours as needed Active guaiFENesin ER 600 MG Oral Tablet Extended Release 12 Hour (Humibid LA) Take 1 Tablet by mouth in the morning and 1 Tablet before bedtime. Active [place]-3 Fatty Acids 1000 MG Oral Capsule (OMEGA-3) Take 1 Capsule by mouth in the morning. Active Docusate Sodium 100 MG Oral Capsule (Colace) Take 1 Capsule by mouth in the morning and 1 Capsule before bedtime. Active Magnesium Hydroxide 400 MG/5ML Oral Suspension (Mom) Take 30 mL by mouth daily as needed for Constipation. Active Sennosides 8.6 MG Oral Tablet (Senokot) Take 1 Tablet by mouth in the morning and 1 Tablet before bedtime. As needed. Active Polyethylene Glycol 3350 17 GM Oral Packet (MiraLax) Take 1 Packet by mouth in the morning. As needed for constipation . Active Heparin Sodium (Porcine) 5000 UNIT/ML Injection Solution Inject 1 mL under the skin in the morning and 1 mL at noon and 1 mL before bedtime. Active documented as of this encounter (statuses [...] mRNA, LNP-s, No Pre serve, 2-Dose Series (Catchoom) 02/01/2021,07/09/2020,06/16/2020 COVID-19, LNP-s, No Preserve , Perfecto-sucrose, Ages 12+ (Catchoom) 07/05/2023,11/01/2021 Covid-19, Mrna, Lnp-s, Pf, B ivalent, [...] the AAA repair She just moved from [place] where she lived all her life. Her daughter lives here. Other medical problems includes hypertension depression and hyperlipidemia. As per the patient for a while patient did not really care about her health and medication because severe depression. Since last visit ----she was admitted in [facility] where I did see her. 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 ([facility]) 02/09/2022 Dizziness Dyslipidemia, goal LDL below 100 02/09/2022 Fatigue HTN (hypertension) Motion sickness Obesity PONV (postoperative nausea and vomiting) Severe episode of recurrent major depressive disorder ([facility]) 02/09/2022 Sleep apnea CPAP - intermittent use Stage 3b chronic kidney disease (CKD) ([facility]) 02/09/2022 Type 2 diabetes mellitus with hemoglobin A1c goal of less than 7.0% ([facility]) 02/09/2022 Vitamin D deficiency 02/09/2022 Past Surgical History: Procedure Laterality Date EGD, FLEXIBLE, DIAGNOSTIC N/A 06/07/2023 ESOPHAGOGASTRODUODENOSCOPY (EGD), FLEXIBLE, TRANSORAL, DIAGNOSTIC performed by Harry Pandey MDat ENDOSCOPY [facility] INFORMATION 2008 hysterectomy INFORMATION 2015 colonoscopy INFORMATION Left 2002 knee arthroscopy IRRIGATION OF SPHENOID SINUS Right 07/18/2023 IRRIGATION SPHENOID SINUS performed by Pat Umaña MD at OR [facility] NASAL ENDOSCOPY,TOTAL ETHMOIDECTOMY Right 07/18/2023 NASAL SINUS ENDOSCOPY WITH ETHMOIDECTOMY TOTAL performed by Pat Umaña MD at OR [facility] NASAL/SINUS ENDOSCOPY, SURGICAL Right 07/18/2023 NASAL SINUS ENDOSCOPY SPHENOIDOTOMY REMOVE TISSUE performed by Pat Umaña MD at OR [facility] STEREOTACTIC CRANIAL EXTRADURAL NAVIGATION N/A 07/18/2023 STEREOTACTIC CRANIAL EXTRADURAL NAVIGATION performed by Pat Umaña MD at OR [facility] THERAPEUTIC FRACTURE OF NOSE Right 07/18/2023 FRACTURE OF NASAL TURBINATES THERAPEUTIC performed by Pat Umaña MD at OR [facility] Review of patient's allergies indicates: No [...] 5, GFR less than 15 ml/min (HCC) At this point I believes she has [...] I discussed with Dr. Mcgee at the [facility] about her clinical situation. For now she will be sent back to [facility] but most likely she will be sent back to [facility] for further management which may include [...] discharge. [facility] most likely will be sent over to [facility]. I spent a total of Greater [...] up for KAVITA To dicuss dialysis options Daughter is with patient for this visit Currently in [facility] rehab Pt arrived via WC very lethargic unable to keep head upright Pt falls asleep mid sentence with snoring resps Pt is oriented to person and place only for nurse Daughter States 'She has been like this all day " is made aware and comes straight to room for eval documented in this encounter Plan of Treatment Upcoming Encounters Date Type Department Care Team (Late st Contact Info) Description 09/26/2023 1:30 PM EDT Office Visit Orthopaedics [facility] [address] [place] [address] Zia Monsalve MD [address] [place] [address] 09/27/2023 2:30 PM EDT Imaging Radiology [facility] [address] [place] [address] 09/28/2023 6:10 PM EDT Pharmacy Pharmacy, [facility] [address] [facility] [place] [address] [place] [address] [facility] [place] [address] 10/10/2023 1:30 PM EDT Office Visit Interventional Pain Center, [facility] [address] [facility] [place] [address] Edgar Forde, DO [address] [place] [phone] 12/28/2023 3:20 PM EDT Office Visit Family Practice [facility] [address] [place] [address] Ghada Salazar MD [address] [place] [address] 02/13/2024 10:40 AM EDT Office Visit [facility] [address] [facility] [place] [phone] Sofia Romo, DO [address] [place] [address] Pending Results Name Type Priority Associated Diagnoses Date /Time CYSTATIN C WITH EGFR Lab Routine CKD (chronic kidney disease) stage 5, GFR less than 15 ml/min ([facility]) 09/20/2023 2:24 PM EDT Scheduled Orders Name Type Priority Associated Diagnoses Orde r Schedule CYSTATIN C WITH EGFR Lab Routine CKD (chronic kidney disease) stage 5, GFR less than 15 ml/min ([facility]) Expected: 09/20/2023, Expires: 09/19/2024 PTH Lab Routine [...] 01/25/2021 Phosphate 12/30/2023 12/29/2022, 060 11/2022, 02/18/2022 Diabetic Eye Exam 03/02/2024 03/02/2023, 02/10/2022 GFR 03/20/2024 09/19/2023, 060 06/2023, 09/17/2023, Additional history exists Mammogram 03/29/2024 03/29/2023, 1205/2021, 08/28/2013 Albumin/Creatinine Ratio 09/05/2024 09/06/2023, 07/2021 Hgb 09/15/2024 09/16/2023, 12/16, 09/22/2022, Additional history exists Nephrology Referral 09/19/2024 09/20/2023 Lipid Panel 06/14/2028 06/14/2023, 0 06/2022, 01/25/2021 [...] this encounter Medical Devices Implanted Type Area Chemistry Instructor Device Identifier Shelf Expiration Date Model / Serial / Lot Mometasone Furoate Implant Min - [id number] Implanted:Qty: 1 on 07/18/2023 by Pat Umaña MD at OR [facility] Right: Nose [employer] 05/03/2024 [id number] / / [id number] documented as of this encounter Visit Diagnoses Diagnosis KAVITA (acute kidney injury) (HCC)- Primary Acute kidney failure, unspecified CKD (chronic kidney disease) stage 5, GFR less than 15 ml/min (HCC) Chronic kidney disease, Stage V HTN, goal below 140/90 Unspecified essential hypertension documented in this encounter Care Teams Administrative Court Justice Relationship Specialty Start Date End Date Ghada Salazar MD [address] [place] [address] PCP - General Internal Medicine 04/04/22 documented as of this encounter
[2023-09-22 07:22] LABS: Hematocrit (blood only) 24.3 % (37.0-47.0); Mean Corpuscular Hemoglobin 29.4 pg (25.0-34.0); Mean Corpuscular Hgb Conc 32.9 g/dL (32.0-36.0); Mean Corpuscular Volume 89.3 fL (80.0-100.0); Mean Platelet Volume 9.3 fL (9.4-12.4); Platelet Count 314 K/uL (130-400); RDW Coefficient of Variation 14.9 % (11.5-14.5); RDW Standard Deviation 48.8 fL (36.4-46.3); Red Blood Count 2.72 M/uL (4.20-5.40); White Blood Count 7.97 K/ul (4.8-10.8)
[2023-09-22 07:47] LABS: BUN Creatinine Ratio 15.5 (10-20); Calcium 9.1 mg/dl (8.6-10.3); Creatinine Clr Calc Pharmacy 14.6 ml/min; Est GFR (African American) 13.1 ml/min; Est GFR (Non-African American) 11.3 ml/min; Magnesium 1.9 mg/dl (1.7-2.4); Phosphorus 6.1 mg/dl (2.5-4.9); Potassium 3.9 mmol/L (3.5-5.1)
[2023-09-22] MEDS ORDERED: amLODIPine BESYLATE 5 MG TAB PO SCH (09:00)
--- NOTE | 2023-09-22 09:31 | Hospitalist Progress Note ---
Date of Service September 22, 2023 Assessment & Plan (1) Acute kidney injury superimposed on chronic kidney disease: (2) Metabolic acidosis: (3) Acute uremia: (4) Acute confusion: (5) Type 2 diabetes mellitus: (6) Depression: (7) Anemia: Plan 73 y/o F presents from [facility] rehab where she was recently discharged from [facility] on 09/14 for treatment of pneumonia and worsening CKD. She was noted to become more lethargic and fatigued likely secondary to uremia/worsening kidney failure. Patient was recently started on torsemide 09/14. More recent CT during last admission CTAP did not reveal any hydronephrosis or obstructions. No added value with additional abdominal imaging at this time. Patient is lying flat in her hospital bed, eyes closed. Additional past medical history includes insulin-dependent type 2 diabetes, obesity, MDD, HLD and HTN. No leukocytosis, hyponatremic 130, worsening BUN/Creatinine 58/3.84 eGFR 10.6. Hgb 8.2; baseline 7.8-9.7. Head CT negative. CXR with cardiomegaly without acute CP process. Normal procalcitonin, normal TSH. ECG without ischemic changes. Most recent echo 09/09 EF 60 to 65% no wall motion abnormalities noted, mild MR and G1 DDx. Dialysis has been discussed briefly with the patients family as a future consideration. Patient will be admitted for further evaluation and management for continued work up for worsening KAVITA on CKD with metabolic acidosis with a diuretic challenge and Nephrology consultation for consideration of dialysis. Talley catheter placement for accurate I/O. Continue monitoring for AMS and any other infectious causes, likely secondary to uremia. KAVITA superimposed on CKD: Metabolic Acidosis: Chronic Creatinine 3.84, BUN 58; continues to increase. Last admission creatinine 3.35 but prior baseline was approximately 2 Follows with nephrology; Dr. Tovar Recently started on Torsemide on 09/14 VBG indicates metabolic acidosis pH 7.28, CO2 44, HCO3 21 Nephrology consulted, may require inpatient dialysis Discussed w/ nephrology mental status improved in AM, but worse PM. Today Pt seen AM and mental status normal. Plan to stop amlodipine, instead take torsemide + losartan Cont. to monitor AMS: Likely secondary to uremia Head CT: negative Elevated troponin: Chronic Troponin 67.1; known elevated in the 90 Likely secondary to CKD Most recent ECHO 09/09: EF 60 to 65% no wall motion abnormalities noted, mild MR and G1 DDx. Anemia of Chronic Disease: Chronic Hgb: 8.2; baseline 7-9 No overt signs of bleeding Diabetes type 2: Chronic Most recent A1c Hold home agents and placed on SSI ACHS Glycemic pharmacy Depression: Chronic Takes fluoxetine; continue Disposition: PCP: Dr. Indy Salazar CODE STATUS: Full code DVT prophylaxis: Heparin SQ Admission and Anticipated Discharge Date Admission Date: September 20, 2023 Subjective Pt seen in follow up of lethargy, KAVITA on CKD Sitting up in bed in NAD On suppl. O2 Daughter present at the bedside and pt's mental status back to baseline, able to answer questions appropriately Denies any fevers chills, chest pain, shortness of breath, abdominal pain, nause a vomiting Discussed with nephrology - no need for HD right now, will cont. to monitor Review of Systems Review of Systems: All systems reviewed & are unremarkable except as noted in Subjective Physical Exam Physical Exam: GENERAL: obese F in NAD HEENT: NC, AT. MMM. EOMI NECK: Supple HEART: Normal rate and regular rhythm, normal S1/S1, IVETTE+ LUNGS: CTAB, moving air well. No crackles or wheezes are heard. ABDOMEN: Soft, nontender, obese, + bowel sounds EXTREMITIES: + LE edema b/l NEUROLOGICAL: Awake and alert, able to answer questions appropriately, no facial asymmetry, speech fluent, moves extremities Skin: Warm and dry Results & Data Results & Data Vital Signs (Past 12 Hours) Vital Signs Temp Pulse Pulse Resp BP BP Pulse Ox 09/22/23 07:56 36.6 C 87 16 162/66 H 95 09/22/23 07:04 90 09/22/23 04:00 36.7 C 91 H 18 146/66 H 94 09/22/23 00:28 79 09/21/23 23:44 36.6 C 84 18 147/76 H 98 O2 Del Method O2 Flow Rate 09/22/23 07:56 Nasal Cannula 2 09/22/23 07:04 09/22/23 04:00 Nasal Cannula 2 09/22/23 00:28 09/21/23 23:44 Room Air Laboratory Results 09/22/23 09/22/23 09/21/23 Range/Units 08:06 06:49 20:58 WBC 7.97 (4.8-10.8) K/ul RBC 2.72 L (4.20-5.40) M/uL Hgb 8.0 L (12.0-16.0) g/dl Hct 24.3 L (37.0-47.0) % MCV 89.3 (80.0-100.0) fL MCH 29.4 (25.0-34.0) pg MCHC 32.9 (32.0-36.0) g/dL RDW Std Deviation 48.8 H (36.4-46.3) fL RDW Coeff of Aure 14.9 H (11.5-14.5) % Plt Count 314 (130-400) K/uL MPV 9.3 L (9.4-12.4) fL Sodium 133 L (136-145) mmol/L Potassium 3.9 (3.5-5.1) mmol/L Chloride 99 (98-107) mmol/L Carbon Dioxide 24 (21-32) mmol/L Anion Gap 10 (3-11) BUN 58 H (6-23) mg/dl Creatinine 3.73 H (0.6-1.2) mg/dl Est Cr Clr Drug Dosing 14.6 ml/min Cystatin C Est GFR (Cystatin C) Est GFR ( Amer) 13.1 ml/min Est GFR (Non-Af Amer) 11.3 ml/min BUN/Creatinine Ratio 15.5 (10-20) Glucose 99 (70-99(Fasting)) mg/dl POC Glucose 110 H 120 H (70-99) mg/dl Calcium 9.1 (8.6-10.3) mg/dl Phosphorus 6.1 H (2.5-4.9) mg/dl Magnesium 1.9 (1.7-2.4) mg/dl 09/21/23 09/21/23 09/20/23 Range/Units 16:56 12:10 17:45 WBC (4.8-10.8) K/ul RBC (4.20-5.40) M/uL Hgb (12.0-16.0) g/dl Hct (37.0-47.0) % MCV (80.0-100.0) fL MCH (25.0-34.0) pg MCHC (32.0-36.0) g/dL RDW Std Deviation (36.4-46.3) fL RDW Coeff of Aure (11.5-14.5) % Plt Count (130-400) K/uL MPV (9.4-12.4) fL Sodium (136-145) mmol/L Potassium (3.5-5.1) mmol/L Chloride (98-107) mmol/L Carbon Dioxide (21-32) mmol/L Anion Gap (3-11) BUN (6-23) mg/dl Creatinine (0.6-1.2) mg/dl Est Cr Clr Drug Dosing ml/min Cystatin C Pending Est GFR (Cystatin C) Pending Est GFR ( Amer) ml/min Est GFR (Non-Af Amer) ml/min BUN/Creatinine Ratio (10-20) Glucose (70-99(Fasting)) mg/dl POC Glucose 151 H 124 H (70-99) mg/dl Calcium (8.6-10.3) mg/dl Phosphorus (2.5-4.9) mg/dl Magnesium (1.7-2.4) mg/dl Medications Administered Current Inpatient Medications Acetaminophen (Acetaminophen 325 Mg Tab) 650 mg PO Q4H PRN PRN Reason: Pain or Fever Stop: 10/20/23 23:18 Last Admin: 09/21/23 10:48 Dose: 650 mg Aspirin (Aspirin 81 Mg Ectab) 81 mg PO [facility] Stop: 10/21/23 08:59 Last Admin: 09/22/23 08:55 Dose: 81 mg Dextrose (Dextrose 50% 50 Ml Syringe) 25 - 50 ml IV UD PRN; Protocol PRN Reason: Hypoglycemia Protocol Stop: 10/20/23 20:53 Fluoxetine HCl (Fluoxetine Hcl 20 Mg Cap) 40 mg PO [facility] Stop: 10/21/23 08:59 Last Admin: 09/22/23 08:56 Dose: 40 mg Glucagon (Glucagon For Inj 1 Mg Vial) 1 mg SQ UD PRN; Protocol PRN Reason: Hypoglycemia Protocol Stop: 10/20/23 20:53 Glucose (Glucose 40% Gel 15 Gm Tube) 15 - 30 gm PO UD PRN; Protocol PRN Reason: Hypoglycemia Protocol Stop: 10/20/23 20:53 Glucose (Glucose 10 Tab/Tube) 4 - 8 tab PO UD PRN; Protocol PRN Reason: Hypoglycemia Treatment Stop: 10/20/23 20:53 Heparin Sodium (Porcine) (Heparin Sod 5,000 Unit/0.5 Ml Vial) 7,500 units SQ Q12 [facility] Stop: 10/20/23 23:18 Last Admin: 09/22/23 08:55 Dose: 7,500 units Insulin Aspart (Insulin Aspart Per Unit Charge) 0 units SC ACHS [facility] Stop: 10/20/23 20:59 Last Admin: 09/22/23 08:56 Dose: Not Given Losartan Potassium (Losartan Potassium 50 Mg Tab) 50 mg PO QAM [facility] Stop: 10/21/23 10:14 Last Admin: 09/22/23 08:56 Dose: 50 mg Miscellaneous (Carbohydrates For Hypoglycemia ) 15 - 30 gm PO UD PRN PRN Reason: Hypoglycemia Protocol Stop: 10/20/23 20:53 Ondansetron HCl (Ondansetron Inj 2 Mg/Ml 2 Ml Vial) 4 mg IV Q6H PRN PRN Reason: Nausea Stop: 10/20/23 23:18 Polyethylene Glycol (Polyethylene (Miralax) 17 Gm Pack) 17 gm PO DAILY PRN PRN Reason: Constipation Stop: 10/20/23 23:18 Rosuvastatin Calcium (Rosuvastatin Calcium 10 Mg Tab) 10 mg PO QPM [facility] Stop: 10/20/23 20:59 Last Admin: 09/21/23 20:44 Dose: 10 mg Torsemide (Torsemide 100 Mg Tab) 100 mg PO QAM [facility] Stop: 10/21/23 09:44 Last Admin: 09/22/23 08:55 Dose: 100 mg (7) Anemia Anemia type: unspecified type Qualified Code(s): D64.9 - Anemia, unspecified
[2023-09-22] MEDS: EPOETIN ALFA 20,000 UNITS/ML VIAL SQ ONE (11:37)
[2023-09-22] MEDS: SODIUM FERRIC GLUCONATE 125 MG in 0.9 % SODIUM CHLORIDE 100 ML IV SCH (11:38)
[2023-09-22] MEDS: traMADol HCL 50 MG TABLET PO PRN (21:47)
--- NOTE | 2023-09-23 05:29 | Electrocardiogram Report ---
Test Reason : Blood Pressure : / mmHG Vent. Rate : 081 BPM Atrial Rate : 081 BPM P-R Int : 176 ms QRS Dur : 092 ms QT Int : 380 ms P-R-T Axes : 026 -12 063 degrees QTc Int : 441 ms Normal sinus rhythm Minimal voltage criteria for LVH, may be normal variant ( R in aVL ) Poor R wave progression, consider anterior [place] vs. lead placement vs. LVH Abnormal ECG When compared with ECG of 09-SEP-2023 14:02, No significant change Confirmed by Olivier Kumari ([id number]) on 09/23/2023 5:29:23 AM Referred By: Omer Mcgee Confirmed By:Olivier Kumari
--- NOTE | 2023-09-23 05:30 | Electrocardiogram Report ---
Test Reason : Blood Pressure : / mmHG Vent. Rate : 080 BPM Atrial Rate : 080 BPM P-R Int : 180 ms QRS Dur : 092 ms QT Int : 396 ms P-R-T Axes : 054 -09 057 degrees QTc Int : 456 ms Normal sinus rhythm Normal ECG When compared with ECG of 20-SEP-2023 17:36, No significant change was found Confirmed by Olivier Kumari ([id number]) on 09/23/2023 5:29:41 AM Referred By: Omer Mcgee Confirmed By:Olivier Kumari
[2023-09-23 07:07] LABS: Hematocrit (blood only) 23.5 % (37.0-47.0); Hemoglobin 7.7 g/dl (12.0-16.0); Mean Corpuscular Hemoglobin 29.3 pg (25.0-34.0); Mean Corpuscular Hgb Conc 32.8 g/dL (32.0-36.0); Mean Corpuscular Volume 89.4 fL (80.0-100.0); Mean Platelet Volume 9.5 fL (9.4-12.4); Platelet Count 334 K/uL (130-400); RDW Coefficient of Variation 14.9 % (11.5-14.5); RDW Standard Deviation 48.8 fL (36.4-46.3); Red Blood Count 2.63 M/uL (4.20-5.40); White Blood Count 10.26 K/ul (4.8-10.8)
[2023-09-23 07:12] LABS: BUN Creatinine Ratio 17.3 (10-20); Calcium 9.1 mg/dl (8.6-10.3); Creatinine Clr Calc Pharmacy 14.8 ml/min; Est GFR (African American) 13.5 ml/min; Est GFR (Non-African American) 11.6 ml/min; Magnesium 1.8 mg/dl (1.7-2.4); Phosphorus 5.2 mg/dl (2.5-4.9); Potassium 3.7 mmol/L (3.5-5.1)
--- NOTE | 2023-09-23 11:44 | Hospitalist Progress Note ---
Date of Service September 23, 2023 Assessment & Plan (1) Acute kidney injury superimposed on chronic kidney disease: (2) Metabolic acidosis: (3) Acute uremia: (4) Acute confusion: (5) Type 2 diabetes mellitus: (6) Depression: (7) Anemia: Plan 73 y/o F presents from [facility] rehab where she was recently discharged from [facility] on 09/14 for treatment of pneumonia and worsening CKD. She was noted to become more lethargic and fatigued likely secondary to uremia/worsening kidney failure. Patient was recently started on torsemide 09/14. More recent CT during last admission CTAP did not reveal any hydronephrosis or obstructions. No added value with additional abdominal imaging at this time. Patient is lying flat in her hospital bed, eyes closed. Additional past medical history includes insulin-dependent type 2 diabetes, obesity, MDD, HLD and HTN. No leukocytosis, hyponatremic 130, worsening BUN/Creatinine 58/3.84 eGFR 10.6. Hgb 8.2; baseline 7.8-9.7. Head CT negative. CXR with cardiomegaly without acute CP process. Normal procalcitonin, normal TSH. ECG without ischemic changes. Most recent echo 09/09 EF 60 to 65% no wall motion abnormalities noted, mild MR and G1 DDx. Dialysis has been discussed briefly with the patients family as a future consideration. Patient will be admitted for further evaluation and management for continued work up for worsening KAVITA on CKD with metabolic acidosis with a diuretic challenge and Nephrology consultation for consideration of dialysis. Talley catheter placement for accurate I/O. Continue monitoring for AMS and any other infectious causes, likely secondary to uremia. KAVITA superimposed on CKD: Metabolic Acidosis: Chronic Creatinine 3.84, BUN 58; continues to increase. Last admission creatinine 3.35 but prior baseline was approximately 2 Follows with nephrology; Dr. Tovar Recently started on Torsemide on 09/14 VBG indicates metabolic acidosis pH 7.28, CO2 44, HCO3 21 Nephrology consulted, may require inpatient dialysis Discussed w/ nephrology mental status improved in AM, but worse PM. Next AM mental status normal again. Stopped amlodipine, instead on torsemide + losartan - however BP elevated - adding amlodipine back Cont. to monitor AMS: Likely secondary to uremia Head CT: negative Elevated troponin: Chronic Troponin 67.1; known elevated in the 90s Likely secondary to CKD Most recent ECHO 09/09: EF 60 to 65% no wall motion abnormalities noted, mild MR and G1 DDx. Anemia of Chronic Disease: Chronic Hgb: 8.2; baseline 7-9 No overt signs of bleeding Received venofer, epo by nephrology Diabetes type 2: Chronic Most recent A1c Hold home agents and placed on SSI ACHS Glycemic pharmacy Depression: Chronic Takes fluoxetine; continue Disposition: PCP: Dr. Indy Salazar CODE STATUS: Full code DVT prophylaxis: Heparin SQ Admission and Anticipated Discharge Date Admission Date: September 20, 2023 Subjective Pt seen in follow up of lethargy, KAVITA on CKD Sitting up in bed in NAD On suppl. O2 Daughter present at the bedside yesterday and updated. Pt's mental status back to baseline, able to answer questions appropriately Denies any fevers chills, chest pain, shortness of breath, abdominal pain, nausea vomiting. But on suppl. O2 Discussed with nephrology - no need for HD right now, will cont. to monitor, adding amlodipine for BP control Review of Systems Review of Systems: All systems reviewed & are unremarkable except as noted in Subjective Physical Exam Physical Exam: GENERAL: obese F in NAD HEENT: NC, AT. MMM. EOMI NECK: Supple HEART: Normal rate and regular rhythm, normal S1/S1, IVETTE+ LUNGS: CTAB, moving air well. No crackles or wheezes are heard. ABDOMEN: Soft, nontender, obese, + bowel sounds EXTREMITIES: + LE edema b/l NEUROLOGICAL: Awake and alert, able to answer questions appropriately, no facial asymmetry, speech fluent, moves extremities Skin: Warm and dry Results & Data Results & Data Vital Signs (Past 12 Hours) Vital Signs Temp Pulse Pulse Resp BP Pulse Ox O2 Del Method 09/23/23 10:09 37.3 C 89 18 153/74 H 95 Nasal Cannula 09/23/23 08:02 36.6 C 101 H 18 184/82 H 91 Room Air 09/23/23 02:57 61 09/23/23 02:43 36.9 C 83 16 151/70 H 94 Room Air O2 Flow Rate 09/23/23 10:09 2 09/23/23 08:02 09/23/23 02:57 09/23/23 02:43 Laboratory Results 09/23/23 09/23/23 09/23/23 Range/Units 11:31 08:27 05:51 WBC 10.26 (4.8-10.8) K/ul RBC 2.63 L (4.20-5.40) M/uL Hgb 7.7 L (12.0-16.0) g/dl Hct 23.5 L (37.0-47.0) % MCV 89.4 (80.0-100.0) fL MCH 29.3 (25.0-34.0) pg MCHC 32.8 (32.0-36.0) g/dL RDW Std Deviation 48.8 H (36.4-46.3) fL RDW Coeff of Aure 14.9 H (11.5-14.5) % Plt Count 334 (130-400) K/uL MPV 9.5 (9.4-12.4) fL Sodium 133 L (136-145) mmol/L Potassium 3.7 (3.5-5.1) mmol/L Chloride 97 L (98-107) mmol/L Carbon Dioxide 26 (21-32) mmol/L Anion Gap 10 (3-11) BUN 63 H (6-23) mg/dl Creatinine 3.64 H (0.6-1.2) mg/dl Est Cr Clr Drug Dosing 14.8 ml/min Est GFR ( Amer) 13.5 ml/min Est GFR (Non-Af Amer) 11.6 ml/min BUN/Creatinine Ratio 17.3 (10-20) Glucose 113 H (70-99(Fasting)) mg/dl POC Glucose 280 H 131 H (70-99) mg/dl Calcium 9.1 (8.6-10.3) mg/dl Phosphorus 5.2 H (2.5-4.9) mg/dl Magnesium 1.8 (1.7-2.4) mg/dl 09/22/23 09/22/23 09/22/23 Range/Units 20:50 17:30 12:16 WBC (4.8-10.8) K/ul RBC (4.20-5.40) M/uL Hgb (12.0-16.0) g/dl Hct (37.0-47.0) % MCV (80.0-100.0) fL MCH (25.0-34.0) pg MCHC (32.0-36.0) g/dL RDW Std Deviation (36.4-46.3) fL RDW Coeff of Aure (11.5-14.5) % Plt Count (130-400) K/uL MPV (9.4-12.4) fL Sodium (136-145) mmol/L Potassium (3.5-5.1) mmol/L Chloride (98-107) mmol/L Carbon Dioxide (21-32) mmol/L Anion Gap (3-11) BUN (6-23) mg/dl Creatinine (0.6-1.2) mg/dl Est Cr Clr Drug Dosing ml/min Est GFR ( Amer) ml/min Est GFR (Non-Af Amer) ml/min BUN/Creatinine Ratio (10-20) Glucose (70-99(Fasting)) mg/dl POC Glucose 197 H 130 H 147 H (70-99) mg/dl Calcium (8.6-10.3) mg/dl Phosphorus (2.5-4.9) mg/dl Magnesium (1.7-2.4) mg/dl Medications Administered Current Inpatient Medications Acetaminophen (Acetaminophen 325 Mg Tab) 650 mg PO Q4H PRN PRN Reason: Pain or Fever Stop: 10/20/23 23:18 Last Admin: 09/21/23 10:48 Dose: 650 mg Aspirin (Aspirin 81 Mg Ectab) 81 mg PO [facility] Stop: 10/21/23 08:59 Last Admin: 09/23/23 09:04 Dose: 81 mg Dextrose (Dextrose 50% 50 Ml Syringe) 25 - 50 ml IV UD PRN; Protocol PRN Reason: Hypoglycemia Protocol Stop: 10/20/23 20:53 Fluoxetine HCl (Fluoxetine Hcl 20 Mg Cap) 40 mg PO [facility] Stop: 10/21/23 08:59 Last Admin: 09/23/23 09:04 Dose: 40 mg Glucagon (Glucagon For Inj 1 Mg Vial) 1 mg SQ UD PRN; Protocol PRN Reason: Hypoglycemia Protocol Stop: 10/20/23 20:53 Glucose (Glucose 40% Gel 15 Gm Tube) 15 - 30 gm PO UD PRN; Protocol PRN Reason: Hypoglycemia Protocol Stop: 10/20/23 20:53 Glucose (Glucose 10 Tab/Tube) 4 - 8 tab PO UD PRN; Protocol PRN Reason: Hypoglycemia Treatment Stop: 10/20/23 20:53 Heparin Sodium (Porcine) (Heparin Sod 5,000 Unit/0.5 Ml Vial) 7,500 units SQ Q12 JESS Stop: 10/20/23 23:18 Last Admin: 09/23/23 09:04 Dose: 7,500 units Insulin Aspart (Insulin Aspart Per Unit Charge) 0 units SC ACHS JESS Stop: 10/20/23 20:59 Last Admin: 09/23/23 09:04 Dose: Not Given Losartan Potassium (Losartan Potassium 50 Mg Tab) 50 mg PO QAM JESS Stop: 10/21/23 10:14 Last Admin: 09/23/23 09:04 Dose: 50 mg Miscellaneous (Carbohydrates For Hypoglycemia ) 15 - 30 gm PO UD PRN PRN Reason: Hypoglycemia Protocol Stop: 10/20/23 20:53 Ondansetron HCl (Ondansetron Inj 2 Mg/Ml 2 Ml Vial) 4 mg IV Q6H PRN PRN Reason: Nausea Stop: 10/20/23 23:18 Polyethylene Glycol (Polyethylene (Miralax) 17 Gm Pack) 17 gm PO DAILY PRN PRN Reason: Constipation Stop: 10/20/23 23:18 Rosuvastatin Calcium (Rosuvastatin Calcium 10 Mg Tab) 10 mg PO QPM JESS Stop: 10/20/23 20:59 Last Admin: 09/22/23 21:48 Dose: 10 mg Torsemide (Torsemide 100 Mg Tab) 100 mg PO [facility] Stop: 10/21/23 09:44 Last Admin: 09/23/23 09:04 Dose: 100 mg Tramadol HCl (Tramadol Hcl 50 Mg Tablet) 50 mg PO TID PRN PRN Reason: Pain Stop: 10/22/23 21:21 Last Admin: 09/23/23 09:03 Dose: 50 mg (7) Anemia Anemia type: unspecified type Qualified Code(s): D64.9 - Anemia, unspecified
[2023-09-23 12:06] LABS: Cystatin C 3.78 mg/L (0.52-1.10)
--- NOTE | 2023-09-23 12:26 | Nephrology Progress Note ---
Date of Service September 23, 2023 Assessment & Plan Admission and Anticipated Discharge Date Admission Date: September 20, 2023 Subjective Assessment & Plan (1) Acute kidney injury superimposed on chronic kidney disease: She has had really uncontrolled DM for all her life. I think we have reached the final stages of CKD progression. She is getting closer to need Dialysis. No e/o fluid deficit. use torsemide 100 daily and also use losartan 100 daily. BP is high so add amlodipine 5 in evening. I will be managing her as more of CKD 5/ESRD at this point. Her creat of about 4 does not look high enough to have uremic Symptoms but [facility] diabetic patients can have uremia Symptoms even at this level. GFR by cystatin C method is 12 so same as creat based. Will observe the course of her GFR next few days. And if she needs dialysis will plan for tunnelled HD cath next week. this will be more clear in the next few days. But as of now I have no justification to do chronic mainteannce dialysis. Also has severe anemia--likely ESRD related. Given Procrit 61618 unit and also venofer 300 mg. PRBC if hgb < 7 (2) Acute confusion: for no clear reason she is much more lucid today than when I saw her in clinic. S--feels fine. No edema. Seems fully awake and alert. Also eating better and finishing the plate. As per RN also no confusion. C/o montanez. on o2. Labs stable to better Exam: Much more alert and oriented today. Not Closing eyes like yesterday. Good conversation today. MM Moist. neck supple. No JVD Chest b/l clear. CVS--RRR. No murmur Abd-Soft non tender. ext--has 1+ edema. Results & Data Vital Signs (Past 12 Hours) Vital Signs Temp Pulse Pulse Resp BP Pulse Ox O2 Del Method 09/23/23 10:09 37.3 C 89 18 153/74 H 95 Nasal Cannula 09/23/23 09:00 90 Nasal Cannula 09/23/23 09:00 Nasal Cannula 09/23/23 08:02 36.6 C 101 H 18 184/82 H 91 Room Air 09/23/23 02:57 61 09/23/23 02:43 36.9 C 83 16 151/70 H 94 Room Air O2 Flow Rate 06/08/24 10:09 2 09/23/23 09:00 0 09/23/23 09:00 2 09/23/23 08:02 09/23/23 02:57 09/23/23 02:43
--- NOTE | 2023-09-23 15:49 | XRay Report ---
SINGLE VIEW CHEST CLINICAL HISTORY: Hypoxia FINDINGS: An AP, portable, upright chest radiograph is compared to study dated 09/20/2023. Correlation is made with chest CT dated 09/09/2023. The heart is enlarged noting atherosclerotic calcification of the thoracic aorta. The pulmonary vasculature is noncongested. Chronic reticular thickening is simila r to previous. There is bibasilar scarring/atelectasis. No airspace consolidation or large pleural ef fusion is identified. No pneumothorax is seen. The skeletal structures are osteopenic. The bony thora x is grossly intact. Degenerative change is seen in the spine. IMPRESSION: Cardiomegaly with no active disease in the chest. ACT 112: Negative or not required by law. Electronically signed by: Jordi Garcia M.D. 09/23/2023 3:48 PM
[2023-09-23] MEDS ORDERED: amLODIPine BESYLATE 5 MG TAB PO SCH (20:00)
[2023-09-23] MEDS: amLODIPine BESYLATE 5 MG TAB PO SCH (20:46)
[2023-09-24 07:15] LABS: Hematocrit (blood only) 25.4 % (37.0-47.0); Hemoglobin 8.3 g/dl (12.0-16.0); Mean Corpuscular Hemoglobin 29.1 pg (25.0-34.0); Mean Corpuscular Hgb Conc 32.7 g/dL (32.0-36.0); Mean Corpuscular Volume 89.1 fL (80.0-100.0); Mean Platelet Volume 9.1 fL (9.4-12.4); Platelet Count 352 K/uL (130-400); RDW Coefficient of Variation 15.2 % (11.5-14.5); RDW Standard Deviation 49.8 fL (36.4-46.3); Red Blood Count 2.85 M/uL (4.20-5.40); White Blood Count 9.87 K/ul (4.8-10.8)
[2023-09-24 07:30] LABS: BUN Creatinine Ratio 18.6 (10-20); Calcium 9.3 mg/dl (8.6-10.3); Est GFR (African American) 14.7 ml/min; Est GFR (Non-African American) 12.7 ml/min; Magnesium 1.7 mg/dl (1.7-2.4); Phosphorus 5.2 mg/dl (2.5-4.9); Potassium 3.6 mmol/L (3.5-5.1)
--- NOTE | 2023-09-24 17:45 | Hospitalist Progress Note ---
Date of Service September 24, 2023 Assessment & Plan (1) Acute kidney injury superimposed on chronic kidney disease: (2) Metabolic acidosis: (3) Acute uremia: (4) Acute confusion: (5) Type 2 diabetes mellitus: (6) Depression: (7) Anemia: Plan 73 y/o F presents from [facility] rehab where she was recently discharged from [facility] on 09/14 for treatment of pneumonia and worsening CKD. She was noted to become more lethargic and fatigued likely secondary to uremia/worsening kidney failure. Patient was recently started on torsemide 09/14. More recent CT during last admission CTAP did not reveal any hydronephrosis or obstructions. No added value with additional abdominal imaging at this time. Patient is lying flat in her hospital bed, eyes closed. Additional past medical history includes insulin-dependent type 2 diabetes, obesity, MDD, HLD and HTN. No leukocytosis, hyponatremic 130, worsening BUN/Creatinine 58/3.84 eGFR 10.6. Hgb 8.2; baseline 7.8-9.7. Head CT negative. CXR with cardiomegaly without acute CP process. Normal procalcitonin, normal TSH. ECG without ischemic changes. Most recent echo 09/09 EF 60 to 65% no wall motion abnormalities noted, mild MR and G1 DDx. Dialysis has been discussed briefly with the patients family as a future consideration. Patient will be admitted for further evaluation and management for continued work up for worsening KAVITA on CKD with metabolic acidosis with a diuretic challenge and Nephrology consultation for consideration of dialysis. Talley catheter placement for accurate I/O. Continue monitoring for AMS and any other infectious causes, likely secondary to uremia. KAVITA superimposed on CKD: Metabolic Acidosis: Chronic Creatinine 3.84, BUN 58; continues to increase. Last admission creatinine 3.35 but prior baseline was approximately 2 Follows with nephrology; Dr. Tovar Recently started on Torsemide on 09/14 VBG indicates metabolic acidosis pH 7.28, CO2 44, HCO3 21 Nephrology consulted, no need for dialysis at this time, cont. to monitor Discussed w/ nephrology mental status improved in AM, but worse PM. Next AM mental status normal again. Cont. amlodipine, torsemide + losartan - for BP control Cont. to monitor AMS: Likely secondary to uremia Head CT: negative Elevated troponin: Chronic Troponin 67.1; known elevated in the 90s Likely secondary to CKD Most recent ECHO 09/09: EF 60 to 65% no wall motion abnormalities noted, mild MR and G1 DDx. Anemia of Chronic Disease: Chronic Hgb: 8.2; baseline 7-9 No overt signs of bleeding Received venofer, epo by nephrology Diabetes type 2: Current Hgb A1c 6.9% Hold home agents and placed on SSI ACHS Glycemic pharmacy Depression: Chronic Takes fluoxetine; continue Disposition: PCP: Dr. Indy Salazar CODE STATUS: Full code DVT prophylaxis: Heparin SQ Admission and Anticipated Discharge Date Admission Date: September 20, 2023 Subjective Pt seen in follow up of lethargy, KAVITA on CKD Sitting up in bed in NAD On suppl. O2 Pt's mental status back to baseline, able to answer questions appropriately Denies any fevers chills, chest pain, shortness of breath, abdominal pain, nausea vomiting. But on suppl. O2 Discussed with nephrology - no need for HD right now, will cont. to monitor Review of Systems Review of Systems: All systems reviewed & are unremarkable except as noted in Subjective Physical Exam Physical Exam: GENERAL: obese F in NAD HEENT: NC, AT. MMM. EOMI NECK: Supple HEART: Normal rate and regular rhythm, normal S1/S1, IVETTE+ LUNGS: CTAB, moving air well. No crackles or wheezes are heard. ABDOMEN: Soft, nontender, obese, + bowel sounds EXTREMITIES: + LE edema b/l improved NEUROLOGICAL: Awake and alert, able to answer questions appropriately, no facial asymmetry, speech fluent, moves extremities Skin: Warm and dry Results & Data Results & Data Vital Signs (Past 12 Hours) Vital Signs Temp Pulse Pulse Resp BP BP Pulse Ox 09/24/23 16:57 95 09/24/23 16:57 95 09/24/23 16:34 96 09/24/23 15:36 36.8 C 81 18 158/80 H 96 09/24/23 15:22 09/24/23 11:31 36.5 C 79 18 169/81 H 96 09/24/23 07:41 36.8 C 88 18 176/78 H 97 09/24/23 07:32 80 O2 Del Method O2 Flow Rate 09/24/23 16:57 Nasal Cannula 1.5 09/24/23 16:57 Nasal Cannula 1.5 09/24/23 16:34 Nasal Cannula 2 09/24/23 15:36 Nasal Cannula 2 09/24/23 15:22 Nasal Cannula 2 09/24/23 11:31 Room Air 09/24/23 07:41 Nasal Cannula 2 09/24/23 07:32 Laboratory Results 09/24/23 09/24/23 09/24/23 Range/Units 16:32 11:48 08:07 WBC (4.8-10.8) K/ul RBC (4.20-5.40) M/uL Hgb (12.0-16.0) g/dl Hct (37.0-47.0) % MCV (80.0-100.0) fL MCH (25.0-34.0) pg MCHC (32.0-36.0) g/dL RDW Std Deviation (36.4-46.3) fL RDW Coeff of Aure (11.5-14.5) % Plt Count (130-400) K/uL MPV (9.4-12.4) fL Sodium (136-145) mmol/L Potassium (3.5-5.1) mmol/L Chloride (98-107) mmol/L Carbon Dioxide (21-32) mmol/L Anion Gap (3-11) BUN (6-23) mg/dl Creatinine (0.6-1.2) mg/dl Est Cr Clr Drug Dosing ml/min Est GFR ( Amer) ml/min Est GFR (Non-Af Amer) ml/min BUN/Creatinine Ratio (10-20) Glucose (70-99(Fasting)) mg/dl POC Glucose 178 H 180 H 140 H (70-99) mg/dl Calcium (8.6-10.3) mg/dl Phosphorus (2.5-4.9) mg/dl Magnesium (1.7-2.4) mg/dl 09/24/23 09/23/23 Range/Units 07:01 20:22 WBC 9.87 (4.8-10.8) K/ul RBC 2.85 L (4.20-5.40) M/uL Hgb 8.3 L (12.0-16.0) g/dl Hct 25.4 L (37.0-47.0) % MCV 89.1 (80.0-100.0) fL MCH 29.1 (25.0-34.0) pg MCHC 32.7 (32.0-36.0) g/dL RDW Std Deviation 49.8 H (36.4-46.3) fL RDW Coeff of Aure 15.2 H (11.5-14.5) % Plt Count 352 (130-400) K/uL MPV 9.1 L (9.4-12.4) fL Sodium 136 (136-145) mmol/L Potassium 3.6 (3.5-5.1) mmol/L Chloride 98 (98-107) mmol/L Carbon Dioxide 28 (21-32) mmol/L Anion Gap 10 (3-11) BUN 63 H (6-23) mg/dl Creatinine 3.39 H (0.6-1.2) mg/dl Est Cr Clr Drug Dosing 16.0 ml/min Est GFR ( Amer) 14.7 ml/min Est GFR (Non-Af Amer) 12.7 ml/min BUN/Creatinine Ratio 18.6 (10-20) Glucose 126 H (70-99(Fasting)) mg/dl POC Glucose 159 H (70-99) mg/dl Calcium 9.3 (8.6-10.3) mg/dl Phosphorus 5.2 H (2.5-4.9) mg/dl Magnesium 1.7 (1.7-2.4) mg/dl Medications Administered Current Inpatient Medications Acetaminophen (Acetaminophen 325 Mg Tab) 650 mg PO Q4H PRN PRN Reason: Pain or Fever Stop: 10/20/23 23:18 Last Admin: 09/24/23 00:35 Dose: 650 mg Amlodipine Besylate (Amlodipine Besylate 5 Mg Tab) 5 mg PO HS JESS Stop: 10/23/23 20:59 Last Admin: 09/23/23 20:46 Dose: 5 mg Aspirin (Aspirin 81 Mg Ectab) 81 mg PO QAM JESS Stop: 10/21/23 08:59 Last Admin: 09/24/23 08:33 Dose: 81 mg Dextrose (Dextrose 50% 50 Ml Syringe) 25 - 50 ml IV UD PRN; Protocol PRN Reason: Hypoglycemia Protocol Stop: 10/20/23 20:53 Fluoxetine HCl (Fluoxetine Hcl 20 Mg Cap) 40 mg PO QAM JESS Stop: 10/21/23 08:59 Last Admin: 09/24/23 08:33 Dose: 40 mg Glucagon (Glucagon For Inj 1 Mg Vial) 1 mg SQ UD PRN; Protocol PRN Reason: Hypoglycemia Protocol Stop: 10/20/23 20:53 Glucose (Glucose 40% Gel 15 Gm Tube) 15 - 30 gm PO UD PRN; Protocol PRN Reason: Hypoglycemia Protocol Stop: 10/20/23 20:53 Glucose (Glucose 10 Tab/Tube) 4 - 8 tab PO UD PRN; Protocol PRN Reason: Hypoglycemia Treatment Stop: 10/20/23 20:53 Heparin Sodium (Porcine) (Heparin Sod 5,000 Unit/0.5 Ml Vial) 7,500 units SQ Q12 JESS Stop: 10/20/23 23:18 Last Admin: 09/24/23 08:57 Dose: 7,500 units Insulin Aspart (Insulin Aspart Per Unit Charge) 0 units SC ACHS JESS Stop: 10/20/23 20:59 Last Admin: 09/24/23 12:43 Dose: 7 units Losartan Potassium (Losartan Potassium 50 Mg Tab) 50 mg PO QAM JESS Stop: 10/21/23 10:14 Last Admin: 09/24/23 08:32 Dose: 50 mg Miscellaneous (Carbohydrates For Hypoglycemia ) 15 - 30 gm PO UD PRN PRN Reason: Hypoglycemia Protocol Stop: 10/20/23 20:53 Ondansetron HCl (Ondansetron Inj 2 Mg/Ml 2 Ml Vial) 4 mg IV Q6H PRN PRN Reason: Nausea Stop: 10/20/23 23:18 Polyethylene Glycol (Polyethylene (Miralax) 17 Gm Pack) 17 gm PO DAILY PRN PRN Reason: Constipation Stop: 10/20/23 23:18 Rosuvastatin Calcium (Rosuvastatin Calcium 10 Mg Tab) 10 mg PO QPM JESS Stop: 10/20/23 20:59 Last Admin: 09/23/23 20:46 Dose: 10 mg Torsemide (Torsemide 100 Mg Tab) 100 mg PO QAM JESS Stop: 10/21/23 09:44 Last Admin: 09/24/23 08:32 Dose: 100 mg Tramadol HCl (Tramadol Hcl 50 Mg Tablet) 50 mg PO TID PRN PRN Reason: Pain Stop: 10/22/23 21:21 Last Admin: 09/23/23 20:46 Dose: 50 mg (7) Anemia Anemia type: unspecified type Qualified Code(s): D64.9 - Anemia, unspecified
[2023-09-25 07:27] LABS: Hematocrit (blood only) 24.6 % (37.0-47.0); Mean Corpuscular Hemoglobin 29.1 pg (25.0-34.0); Mean Corpuscular Hgb Conc 32.5 g/dL (32.0-36.0); Mean Corpuscular Volume 89.5 fL (80.0-100.0); Mean Platelet Volume 9.1 fL (9.4-12.4); Platelet Count 354 K/uL (130-400); RDW Coefficient of Variation 15.4 % (11.5-14.5); RDW Standard Deviation 49.5 fL (36.4-46.3); Red Blood Count 2.75 M/uL (4.20-5.40); White Blood Count 12.83 K/ul (4.8-10.8)
[2023-09-25 07:40] LABS: BUN Creatinine Ratio 17.5 (10-20); Calcium 9.3 mg/dl (8.6-10.3); Creatinine Clr Calc Pharmacy 14.9 ml/min; Est GFR (African American) 13.9 ml/min; Magnesium 1.6 mg/dl (1.7-2.4); Phosphorus 4.9 mg/dl (2.5-4.9); Potassium 3.5 mmol/L (3.5-5.1)
[2023-09-25] MEDS: POTASSIUM CHLORIDE CRTAB 20 MEQ TABCR PO STA (09:31)
[2023-09-25] MEDS: MAGNESIUM SULFATE / D5W 1 GM/100 ML BAG IV ONE (09:32)
--- NOTE | 2023-09-25 10:55 | Discharge Summary ---
Date of Service September 25, 2023 Admission HPI Per Admitting Provider Ms. Sauer is a 73 year old female Presented to the ED from [facility] where she was recently discharged from [facility] for treatment of pneumonia and worsening CKD. She was noted to become more lethargic and fatigued with worsening altered mental status which is suspected to be likely secondary to uremia/worsening kidney failure. Patient was recently started on torsemide 09/14. More recent CT during last admission CTAP did not reveal any hydronephrosis or obstructions. No added value with additional abdominal imaging at this time. Patient is lying flat in her hospital bed, eyes closed. Additional past medical history includes insulin-dependent type 2 diabetes, obesity, MDD, HLD and HTN Patietns daughter at bedside who stated that she has had more lethargy and fatigue; including increasing tiredness/less awakeness. She reports worsening swelling in her lower extremities. She has newly reported abdominal distension. She will have difficulty with word finding intermittently. In the ED, no leukocytosis, hyponatremic 130, worsening BUN/Creatinine 58/3.84 eGFR 10.6. Hgb 8.2; baseline 7.8-9.7. Head CT performed in the ED negative for ICH, SDH, midline shift. CXR with cardiomegaly without acute cardiopulmonary process. Normal procalcitonin, normal TSH. ECG without ischemic changes. Most recent echo 09/09 EF 60 to 65% no wall motion abnormalities noted, mild MR and G1 DDx. Patient daughter states that her AMS has been worsened. Appears to be uremic and her BUN/Creatinine continues to worsen. VBG did suggests metabolic acidosis. She does continue to make urine per family. Dialysis has been discussed briefly with the patients family as a future consideration. Patient will be admitted for further evaluation and management for continued work up for worsening KAVITA on CKD with metabolic acidosis with a diuretic challenge and Nephrology consultation for consideration of dialysis. Talley catheter placement for accurate I/O. Continue monitoring for AMS and any other infectious causes, likely secondary to uremia. Admission Exam Per Admitting Provider GENERAL APPEARANCE: AxOx3, lethargic no acute distress. HEENT: NC, AT. MMM. EOMI, clear conjunctiva, oropharynx clear. NECK: Supple without lymphadenopathy. No stiffness or restricted ROM. HEART: Normal rate and regular rhythm, normal S1/S1, IVETTE+ LUNGS: CTAB, moving air well. No crackles or wheezes are heard. ABDOMEN: Soft, protuberant abdomen, nontender EXTREMITIES: Without cyanosis, clubbing, 2+pitting edema BLE NEUROLOGICAL: Grossly nonfocal. Alert and oriented, moving all 4 extremities. CN not formally tested but appear grossly intact. Skin: Warm and dry without any rash. Principal Diagnosis Altered mental status, in the setting of CKD - concern for uremia Discharge Exam GENERAL: obese F in NAD HEENT: NC, AT. MMM. EOMI NECK: Supple HEART: Normal rate and regular rhythm, normal S1/S1, IVETTE+ LUNGS: CTAB, moving air well. No crackles or wheezes are heard. ABDOMEN: Soft, nontender, obese, + bowel sounds EXTREMITIES: + LE edema b/l improved NEUROLOGICAL: Awake and alert, able to answer questions appropriately, no facial asymmetry, speech fluent, moves extremities Skin: Warm and dry Discharge Data Allergies Allergy/AdvReac Type Severity Reaction Status Date / Time No Known Allergies Allergy Verified 09/20/23 21:52 Consultations 09/20/23 19:42 ED Decision to Admit Stat 09/20/23 23:19 Consult Nephrology Routine Ordered Studies 09/20/23 17:59 CT head/brain wo con Stat FINDINGS: Brain: No intracranial hemorrhage. No significant mass effect. No alteration in appearance of the parenchyma when compared to the previous examination with the portable prominence of the cerebral sulci and sylvian fissures and mild periventricular deep white matter hypodense changes noted. Ventricles: No midline shift or ventriculomegaly. Bones/joints: Unremarkable. No acute fracture. Soft tissues: Unremarkable. Sinuses: Unremarkable as visualized. No acute sinusitis. Mastoid air cells: Unremarkable as visualized. No mastoid effusion. IMPRESSION: No acute intracranial process or significant alteration from the prior examination. CXR FINDINGS: An AP, portable, upright chest radiograph is compared to study dated 09/20/2023. Correlation is made with chest CT dated 09/09/2023. The heart is enlarged noting atherosclerotic calcification of the thoracic aorta. The pulmonary vasculature is noncongested. Chronic reticular thickening is similar to previous. There is bibasilar scarring/atelectasis. No airspace consolidation or large pleural effusion is identified. No pneumothorax is seen. The skeletal structures are osteopenic. The bony thorax is grossly intact. Degenerative change is seen in the spine. IMPRESSION: Cardiomegaly with no active disease in the chest. Hospital Course (1) Acute kidney injury superimposed on chronic kidney disease: (2) Metabolic acidosis: (3) Acute uremia: (4) Acute confusion: (5) Type 2 diabetes mellitus: (6) Depression: (7) Anemia: Plan 73 y/o F presents from [facility] rehab where she was recently discharged from [facility] on 09/14 for treatment of pneumonia and worsening CKD. She was noted to become more lethargic and fatigued likely secondary to uremia/worsening kidney failure. Patient was recently started on torsemide 09/14. More recent CT during last admission CTAP did not reveal any hydronephrosis or obstructions. No added value with additional abdominal imaging at this time. Patient is lying flat in her hospital bed, eyes closed. Additional past medical history includes insulin-dependent type 2 diabetes, obesity, MDD, HLD and HTN. No leukocytosis, hyponatremic 130, worsening BUN/Creatinine 58/3.84 eGFR 10.6. Hgb 8.2; baseline 7.8-9.7. Head CT negative. CXR with cardiomegaly without acute CP process. Normal procalcitonin, normal TSH. ECG without ischemic changes. Most recent echo 09/09 EF 60 to 65% no wall motion abnormalities noted, mild MR and G1 DDx. Dialysis has been discussed briefly with the patients family as a future consideration. Patient will be admitted for further evaluation and management for continued work up for worsening KAVITA on CKD with metabolic acidosis with a diuretic challenge and Nephrology consultation for consideration of dialysis. Talley catheter placement for accurate I/O. Continue monitoring for AMS and any other infectious causes, likely secondary to uremia. KAVITA superimposed on CKD: Metabolic Acidosis: Chronic Creatinine 3.84, BUN 58; continues to increase. Last admission creatinine 3.35 but prior baseline was approximately 2 Follows with nephrology; Dr. Tovar Recently started on Torsemide on 09/14 VBG indicates metabolic acidosis pH 7.28, CO2 44, HCO3 21 Nephrology consulted, no need for dialysis at this time, cont. to monitor Cont. amlodipine, torsemide + losartan - for BP control Cont. to monitor Discussed w/ nephrology - Plan to discharge - will need BMP in 2 days - on Monday - pls send results to Dr. Tovar ([facility] nephrology). AMS (encephalopathy): Possibly secondary to uremia, possibly secondary to untreated sleep apnea/ nocturnal hypoxia Head CT: negative Discussed w/ nephrology mental status improved in AM, but worse PM. Next AM mental status normal again. Mental status back to baseline Sleep apnea/ nocturnal hypoxia - pt reports she has CPAP at home, however she has not been using it since she was feeling sick, says she has not been using it at rehab, at [facility] either - Patient becomes hypoxic at night, tested for nocturnal hypoxia in the hospital. If she is not using CPAP, she should at least be on 2 L of supplemental oxygen. Recommend using CPAP as ordered / follow up with her outpt provider managing this. Elevated troponin: Chronic Troponin 67.1; known elevated in the 90s Likely secondary to CKD Most recent ECHO 09/09: EF 60 to 65% no wall motion abnormalities noted, mild MR and G1 DDx. Anemia of Chronic Disease: Chronic Hgb: 8.2; baseline 7-9 No overt signs of bleeding Received venofer, epo by nephrology while inpt Diabetes type 2: Current Hgb A1c 6.9% Hold home agents and placed on [facility] Glycemic pharmacy Depression: Chronic Takes fluoxetine; continue Total Time Total Time Spent Total Time Spent (In Minutes): 40 Discharge Plan Discharge Items Patient Disposition: Transfer Inpatient Rehab Fac Reason For Visit: CONFUSION Discharge Diagnosis: Altered mental status (Encephalopathy) , in the setting of CKD - concern for uremia Activity: Per Instructions section Non-emergency contact: Primary Care Provider and Fastener Technologist Call non-emergency contact if: you have any medication questions and your symptoms worsen Follow-up/Referrals: Ghada Salazar MD [Primary Care Provider] - Diet: Carb Consistent or DM2, Heart Healthy and Low Sodium (2gm) Fluids: 2000ml (8 cups) Diet Texture: Easy to Chew Addtl Attending Provider Instructions: Follow up with your primary care doctor within 1 week after being discharged from rehab hospital. You will also need to follow up with nephrology - have your blood work - BMP done in next 2 days (on Monday). Your torsemide was increased to 100 mg daily. Your amlodipine was changed from 5 mg twice a day to just 5 mg at bedtime. Take losartan 50 mg daily. Continue using guaifenesin twice a day, flutter valve, and incentive spirometer. You have sleep apnea - either use cpap at night as you are supposed to or at [facility] use suppl. O2 (2L at bedtime) - as your oxygen level decreases at night when you sleep. Follow up with your outpt providers regarding this as well. Pending Studies at Discharge: No Stand-Alone Forms: [facility] Skilled Items Patient informed of condition?: Yes DNR: No Discharge Level of Care: Acute rehab Communicable Disease: No Discharge Prognosis: Stable Lines: None Urinary Catheter: No Medications and DC Order Prescriptions: New torsemide 100 mg Tablet 100 mg PO QAM Qty: 30 0RF amlodipine [Norvasc] 5 mg Tablet 5 mg PO HS Qty: 30 0RF losartan 50 mg Tablet 50 mg PO QAM Qty: 30 0RF Continued aspirin 81 mg Tablet,Delayed Release (Dr/Ec) 81 mg PO QAM cyanocobalamin (vitamin B-12) [Vitamin B-12] 500 mcg Tablet 500 mcg PO QAM fluoxetine 40 mg capsule 40 mg PO QAM acetaminophen [Tylenol] 325 mg Tablet 325 mg PO Q6H PRN (Reason: Pain) omega-3 fatty acids 1,000 mg Capsule 1,000 mg PO QAM oxybutynin chloride 5 mg tablet 5 mg PO QAM fluticasone propionate 50 mcg/actuation [place],Suspension 2 spray INTRANASAL DAILY Rx Instructions: administer into each nostril rosuvastatin 10 mg tablet 10 mg PO QPM cholecalciferol (vitamin D3) [Vitamin D3] 125 mcg (5,000 unit) Tablet 125 mcg PO DAILY guaifenesin [Mucinex] 600 mg Tablet Extended Release 12hr 600 mg PO Q12 Qty: 10 0RF gabapentin 600 mg tablet 300 mg PO BID Qty: 0 0RF insulin lispro [Humalog KwikPen Insulin] 100 unit/mL insulin pen 5 unit SUBCUT TIDM Qty: 0 0RF insulin glargine U-300 conc [Toujeo Max U-300 SoloStar] 300 unit/mL (3 mL) insulin pen 10 unit SUBCUT QAM Qty: 0 0RF heparin (porcine) 5,000 unit/mL Solution 5,000 unit SUBCUT Q8H Discontinued torsemide 20 mg Tablet 20 mg PO QAM Qty: 10 0RF hydralazine 50 mg Tablet 100 mg PO TID Qty: 90 0RF levofloxacin 500 mg tablet 500 mg PO Q48H 5 Days Qty: 3 0RF Rx Instructions: Start taking on 09/17/23 amlodipine 5 mg tablet 5 mg PO BID Qty: 0 0RF Discharge Orders: Discharge Order (Routine); Ordered 09/25/23 Ordered By: Gerry Pittman Admission Data Admit Date/Time: 09/20/23 19:55 Attending Provider: Gerry Pittman Admit Provider: Tatum Jacobson Primary Care Provider: Ghada Salazar Other Providers: Tatum Jacobson; Juan Tovar; [facility]
[2023-09-25] MEDS: guaiFENesin 600 MG TABCR PO SCH (12:50)
== END 2023-09-25 14:21 | DRG 682 ==
LOC: ED 17:28 → 2N 19:55 → SUATTDRO 19:55 → 2N 23:21

== ENCOUNTER 2023-11-01 16:14 | Inpatient (IN) ==
[2023-11-01 17:18] LABS: Base Excess VBG -1.3 mEq/L; HCO3 VBG 24 mmol/L; Oxygen Saturation VBG 81.6 %; PCO2 VBG 43 mmHg (38-50); PO2 VBG 46 mmHg; pH VBG 7.36 (7.36-7.41)
[2023-11-01 17:27] LABS: Hematocrit (blood only) 31.4 % (37.0-47.0); Hemoglobin 9.4 g/dl (12.0-16.0); Mean Corpuscular Hemoglobin 28.1 pg (25.0-34.0); Mean Corpuscular Hgb Conc 29.9 g/dL (32.0-36.0); Mean Corpuscular Volume 93.7 fL (80.0-100.0); Mean Platelet Volume 8.8 fL (9.4-12.4); Platelet Count 323 K/uL (130-400); RDW Coefficient of Variation 14.5 % (11.5-14.5); RDW Standard Deviation 49.3 fL (36.4-46.3); Red Blood Count 3.35 M/uL (4.20-5.40); White Blood Count 14.56 K/ul (4.8-10.8)
[2023-11-01 17:38] LABS: Albumin Globulin Ratio 1.3 (0.9-2); Albumin Level 3.9 gm/dl (3.4-5.0); BUN Creatinine Ratio 11.5 (10-20); Bilirubin,Total 0.4 mg/dl (0.2-1.0); Calcium 9.7 mg/dl (8.6-10.3); Creatinine Clr Calc Pharmacy 19.4 ml/min; Est GFR (African American) 19.3 ml/min; Est GFR (Non-African American) 16.7 ml/min; Globulin 3.1 gm/dl (2.5-4.0); Magnesium 2.1 mg/dl (1.7-2.4); Potassium 5.7 mmol/L (3.5-5.1)
--- NOTE | 2023-11-01 17:45 | Emergency Department Note ---
Impression & Plan Acute dyspnea, Non-ST elevation [place] (NSTEMI), Pneumonia, Acute hypoxemic respiratory failure, Sepsis, Leukocytosis, Elevated brain natriuretic peptide (BNP) level, Acute hyperkalemia ED Provider Note HISTORY OF PRESENT ILLNESS: Patient is a 73-year-old female presenting with shortness of breath. Patient reports she has been having progressively worsening shortness of breath over the last week. She was very short of breath this morning so family checked her pulse ox and saw that her saturations were 86 to 87% on room air. Patient does not wear any supplemental oxygen at baseline. Patient denies any chest pain. States that at the end of August 2023, she was treated with antibiotics for pneumonia. She reports that she has had a chronic cough for the last week but is only picking up some clear mucus. Denies any fevers. Denies any recent sick contact exposures. Denies any abdominal pain. She does report nausea. She reportedly has been very fatigued and sleeping for a number of hours a day secondary to feeling unwell. Denies any DVT or PE history. Denies any history of cardiac stents. She is on a baby aspirin daily but no other anticoagulation therapy. Denies any lower extremity edema. ROS: as above PHYSICAL EXAM: Constitutional: Patient appears in no acute distress. HENT: Head: Normocephalic and atraumatic. Eyes: EOMI, PERRL Mouth/Throat: Mucous membranes moist. Neck: Trachea midline. Neck supple. Cardiovascular: RRR, No murmurs, rubs or gallops. Intact distal pulses. Pulmonary/Chest: No respiratory distress. Patient is on 3 L nasal cannula. Conversationally dyspneic. Abdominal: Abdomen soft, no tenderness, rebound or guarding. Musculoskeletal: No edema, tenderness or deformity noted. Skin: Warm and dry. No rash, erythema, pallor or cyanosis Psychiatric: Appropriate mood and affect for situation. Neurological: Alert and keenly responsive. CN II-XII grossly intact, moving all extremities equally and fully. MDM: - Vitals signs showed hypertension, tachypnea, hypoxia and tachycardia. - History obtained via patient. History as above. - Chronic conditions affecting care: DM-2; CKD; HTN - Differential diagnoses include, but are not limited to: Congestive heart failure; acute coronary syndrome; COPD/asthma exacerbation; pulmonary edema; pulmonary embolism; pneumonia; pneumothorax; viral syndrome - Order placed for continuous cardiac monitoring. At this time, monitor showed rate of 87 bpm with normal sinus rhythm, per my interpretation. - External medical records reviewed. Discharge summary dated 09/25/2023 was reviewed. Patient was admitted at that time for lethargy and fatigue. She was admitted in the setting of concern for uremia. - EKG interpreted by myself showed normal sinus rhythm. Rate 84 bpm. QT 382. No acute ischemic changes. - Laboratory workup interpreted by myself showed leukocytosis (WBC 14.56) with left shift; normal PT/INR; normal lactate; hyperkalemia (K 5.7); CKD (Cr 2.70); elevated troponin (67.9); elevated BNP (257); normal procalcitonin - CXR showed left-sided pneumonia versus pleural effusion, per my interpretation. - Initially ordered a CT PE study, given patient's hypoxia. However, given her significant creatinine elevation in the setting of her CKD, it was changed to a chest without contrast. Her hypoxia is likely secondary to her pleural effusion or pneumonia on the left side. - VBG normal - Viral respiratory panel negative - Blood cultures obtained. - Patient given 500 mg IV azithromycin and 2g IV rocephin for antibiotic coverage. Given 1g IV calcium and fluids for hyperkalemia treatment. - 1.5L NS ordered for fluid resuscitation. Patient sepsis fluid volume calculation based on ideal body weight is 1363.50 mL. - Discussion was had with outpatient case manager about patient's case and need for admission - Hospitalist consulted for admission - [facility]. I have personally spent 41 minutes of critical care time in the direct management of this patient. This includes bedside care, interpretation of diagnostic studies, and testing, discussion with consultants, patient, and family members, and other required patient management activities. This 41 minutes is in excess of all separately billable procedures. ASSESSMENT AND PLAN: Diagnosis: Acute dyspnea; NSTEMI; pneumonia; acute hypoxemic respiratory failure; acute hyperkalemia; elevated BNP; leukocytosis; sepsis Plan: admit Past Med/Surg History Problem List (Updated 11/01/23 @ 19:11 by Jodi Farmer MD) Acute hyperkalemia (Acute) Elevated brain natriuretic peptide (BNP) level (Acute) Leukocytosis (Acute) Sepsis (Acute) Acute hypoxemic respiratory failure (Acute) Pneumonia (Acute) Non-ST elevation [place] (NSTEMI) (Acute) Acute dyspnea (Acute) Metabolic acidosis Non-ST elevation [place] (NSTEMI) (Acute) Acute uremia (Acute) Acute kidney injury superimposed on chronic kidney disease (Acute) Acute confusion (Acute) Type 2 diabetes mellitus Acute kidney injury superimposed on CKD Pneumonia (Acute) Medical History Acidosis Hypertensive urgency Surgical History History of nasal surgery Family History Other Breast cancer No pertinent family history Social History Smoking Status: Never smoker Second Hand Exposure: No; Do You Dip or Chew Tobacco: No; Hx Alcohol Use: No Hx Substance Use: No Preferred Language: Filipino Communication Ability: Effective Property Appraiser Required: No Beliefs That Will Affect Care: None Current Living Situation: Alone Current Living Situation Comment: lives at home alone but nurse and daughter assist Feels Safe at Home: Yes Assistive Devices: Walker and Wheelchair Allergies Allergies Allergy/AdvReac Type Severity Reaction Status Date / Time No Known Allergies Allergy Verified 10/17/23 16:04 Home Meds Home Medications Medication Instructions Recorded Confirmed aspirin 81 mg tablet,delayed 81 mg PO QAM 03/13/19 10/17/23 release cyanocobalamin (vitamin B-12) 500 500 mcg PO QAM 03/13/19 10/17/23 mcg tablet (Vitamin B-12) acetaminophen 325 mg tablet 325 mg PO Q6H PRN Pain 09/09/23 10/17/23 (Tylenol) cholecalciferol (vitamin D3) 125 125 mcg PO QAM 09/09/23 10/17/23 mcg (5,000 unit) tablet (Vitamin D3) fluoxetine 40 mg capsule 40 mg PO QAM 09/09/23 10/17/23 fluticasone propionate 50 2 spray intranasal QAM 09/09/23 10/17/23 mcg/actuation nasal spray,suspension omega-3 fatty acids 1,000 mg 1,000 mg PO QAM 09/09/23 10/17/23 capsule oxybutynin chloride 5 mg tablet 5 mg PO QAM 09/09/23 10/17/23 rosuvastatin 10 mg tablet 10 mg PO HS 09/09/23 10/17/23 amlodipine 10 mg tablet 10 mg PO HS 10/17/23 10/17/23 cetirizine 10 mg tablet 10 mg PO QAM 10/17/23 10/17/23 docusate sodium 100 mg capsule 100 mg PO BID 10/17/23 10/17/23 hydralazine 100 mg tablet 100 mg PO QAM 10/17/23 10/17/23 insulin glargine U-300 conc 300 10 unit subcut DAILY 10/17/23 10/17/23 unit/mL (1.5 mL) subcutaneous pen (Toujeo SoloStar U-300 Insulin) magnesium hydroxide 400 mg/5 mL 30 ml PO DAILY PRN Constipation 10/17/23 10/17/23 oral suspension (Milk of Magnesia) omeprazole 40 mg capsule,delayed 40 mg PO DAILYBB 10/17/23 10/17/23 release ondansetron HCl 4 mg tablet 4 mg PO Q8 PRN Nausea 10/17/23 10/17/23 polyethylene glycol 3350 17 gram 17 g PO QAM PRN Constipation 10/17/23 10/17/23 oral powder packet (SmoothLax) sennosides 8.6 mg tablet (Senokot) 8.6 mg PO BID PRN Constipation 10/17/23 10/17/23 sodium zirconium cyclosilicate 10 10 g PO QAM 10/17/23 10/17/23 gram oral powder packet (Lokelma) tramadol 50 mg tablet 50 mg PO Q6 PRN Pain (Scale Score 10/17/23 10/17/23 4-6) Previous Rx's Medication Instructions Recorded guaifenesin 600 mg tablet, 600 mg PO Q12 #10 tabs 09/15/23 extended release 12 hr (Mucinex) losartan 50 mg tablet 50 mg PO QAM #30 tabs 09/25/23 Results & Data (ED) Vital Signs Vital Signs - 24 hr 11/01/23 16:20 11/01/23 16:20 11/01/23 16:20 Temperature 36.5 C Temperature Source Oral Pulse Rate 93 H Pulse Rate [Apical] Respiratory Rate 20 Respiratory Effort / Characteristics Spontaneous Short of Breath SOB on Exertion Spontaneous Short of Breath SOB on Exertion Respiratory Depth Normal Normal Respiratory Pattern Regular Regular Blood Pressure 185/113 H Blood Pressure [Left Arm] Blood Pressure Mean 137 Blood Pressure Mean [Left Arm] Blood Pressure Position Semi-fowlers Blood Pressure Position [Left Arm] Pulse Oximetry 95 88 L Oxygen Delivery Method Nasal Cannula Nasal Cannula Room Air Oxygen Flow Rate 3 3 Sepsis Recent Fever Within 48 Hours No Sepsis New/Unexplained Change in Mental Status No Sepsis Action Taken by Nursing No Action Required Oxygen Flow Rate - Titration 3 Pulse Oximetry Post Tiitration 96 11/01/23 16:20 11/01/23 16:29 11/01/23 16:40 Temperature Temperature Source Pulse Rate 91 H 87 Pulse Rate [Apical] 85 Respiratory Rate 25 H Respiratory Effort / Characteristics Respiratory Depth Respiratory Pattern Blood Pressure Blood Pressure [Left Arm] Blood Pressure Mean Blood Pressure Mean [Left Arm] Blood Pressure Position Blood Pressure Position [Left Arm] Pulse Oximetry 96 Oxygen Delivery Method Nasal Cannula Oxygen Flow Rate 3 Sepsis Recent Fever Within 48 Hours Sepsis New/Unexplained Change in Mental Status Sepsis Action Taken by Nursing Oxygen Flow Rate - Titration Pulse Oximetry Post Tiitration 11/01/23 17:17 11/01/23 19:00 Temperature Temperature Source Pulse Rate Pulse Rate [Apical] 87 94 H Respiratory Rate 23 26 H Respiratory Effort / Characteristics Spontaneous Short of Breath Spontaneous SOB on Exertion Respiratory Depth Normal Respiratory Pattern Tachypnea Tachypnea Blood Pressure Blood Pressure [Left Arm] 186/94 H 183/86 H Blood Pressure Mean Blood Pressure Mean [Left Arm] 124 118 Blood Pressure Position Blood Pressure Position [Left Arm] Semi-fowlers Semi-fowlers Pulse Oximetry 95 93 Oxygen Delivery Method Nasal Cannula Nasal Cannula Oxygen Flow Rate 3 2 Sepsis Recent Fever Within 48 Hours Sepsis New/Unexplained Change in Mental Status Sepsis Action Taken by Nursing Oxygen Flow Rate - Titration Pulse Oximetry Post Tiitration Laboratory Data 11/01/23 17:03 11/01/23 17:03 Lab Results 11/01/23 11/01/23 11/01/23 Range/Units 17:03 17:08 17:11 WBC 14.56 H (4.8-10.8) K/ul RBC 3.35 L (4.20-5.40) M/uL Hgb 9.4 L (12.0-16.0) g/dl Hct 31.4 L (37.0-47.0) % MCV 93.7 (80.0-100.0) fL MCH 28.1 (25.0-34.0) pg MCHC 29.9 L (32.0-36.0) g/dL RDW Std Deviation 49.3 H (36.4-46.3) fL RDW Coeff of Aure 14.5 (11.5-14.5) % Plt Count 323 (130-400) K/uL MPV 8.8 L (9.4-12.4) fL Immature Gran % (Auto) 0.9 % Neut % (Auto) 90.4 % Lymph % (Auto) 4.9 % [place] % (Auto) 3.2 % Eos % (Auto) 0.2 % Baso % (Auto) 0.4 % Neut # (Auto) 13.16 H (1.40-6.50) K/uL Lymph # (Auto) 0.71 L (1.20-3.40) K/uL [place] # (Auto) 0.47 (0.11-0.59) K/uL Eos # (Auto) 0.03 (0.00-0.50) K/uL Baso # (Auto) 0.06 (0.00-0.20) K/uL Immature Gran # (Auto) 0.13 (0.01-0.20) K/uL PT 10.4 (9.0-12.0) Seconds INR 1.0 (0.9-1.1) VBG pH 7.36 (7.36-7.41) VBG pCO2 43 (38-50) mmHg VBG pO2 46 mmHg VBG HCO3 24 mmol/L VBG O2 Saturation 81.6 % VBG Base Excess -1.3 mEq/L Sodium 136 (136-145) mmol/L Potassium 5.7 H (3.5-5.1) mmol/L Chloride 104 (98-107) mmol/L Carbon Dioxide 24 (21-32) mmol/L Anion Gap 8 (3-11) BUN 31 H (6-23) mg/dl Creatinine 2.70 H (0.6-1.2) mg/dl Est Cr Clr Drug Dosing 19.4 ml/min Est GFR ( Amer) 19.3 ml/min Est GFR (Non-Af Amer) 16.7 ml/min BUN/Creatinine Ratio 11.5 (10-20) Glucose 140 H (70-99(Fasting)) mg/dl Lactate (0.4-2.0) mmol/L Calcium 9.7 (8.6-10.3) mg/dl Magnesium 2.1 (1.7-2.4) mg/dl Total Bilirubin 0.4 (0.2-1.0) mg/dl AST 12 L (13-39) U/L ALT 15 (7-52) U/L Alkaline Phosphatase 124 H (34-104) U/L Troponin I High Sens 67.9 H* (0-14) pg/ml B-Natriuretic Peptide 257 H (0-100) pg/ml Total Protein 7.0 (6.0-8.3) gm/dl Albumin 3.9 (3.4-5.0) gm/dl Globulin 3.1 (2.5-4.0) gm/dl Albumin/Globulin Ratio 1.3 (0.9-2) Procalcitonin 0.09 (0-0.5) ng/ml Adenovirus (PCR) Not Detected (NotDetected) B. pertussis DNA (PCR) Not Detected (NotDetected) B.parapertussis DNA PCR Not Detected (NotDetected) C. pneumoniae DNA (PCR) Not Detected (NotDetected) Coronavirus OC43 (PCR) Not Detected (NotDetected) Coronavirus HKU1 (PCR) Not Detected (NotDetected) Coronavirus 229E (PCR) Not Detected (NotDetected) SARS-CoV-2 (PCR) Not Detected (NotDetected) Coronavirus NL63 (PCR) Not Detected (NotDetected) Human Metapneumovir PCR Not Detected (NotDetected) Influenza Type A (PCR) Not Detected (NotDetected) Influenza Type B (PCR) Not Detected (NotDetected) M. pneumoniae (PCR) Not Detected (NotDetected) Parainfluenza 1 (PCR) Not Detected (NotDetected) Parainfluenza 2 (PCR) Not Detected (NotDetected) Parainfluenza 3 (PCR) Not Detected (NotDetected) Parainfluenza 4 (PCR) Not Detected (NotDetected) RSV (PCR) Not Detected (NotDetected) Entero/Rhino (PCR) Not Detected (NotDetected) 11/01/23 Range/Units 18:35 WBC (4.8-10.8) K/ul RBC (4.20-5.40) M/uL Hgb (12.0-16.0) g/dl Hct (37.0-47.0) % MCV (80.0-100.0) fL MCH (25.0-34.0) pg MCHC (32.0-36.0) g/dL RDW Std Deviation (36.4-46.3) fL RDW Coeff of Aure (11.5-14.5) % Plt Count (130-400) K/uL MPV (9.4-12.4) fL Immature Gran % (Auto) % Neut % (Auto) % Lymph % (Auto) % [place] % (Auto) % Eos % (Auto) % Baso % (Auto) % Neut # (Auto) (1.40-6.50) K/uL Lymph # (Auto) (1.20-3.40) K/uL [place] # (Auto) (0.11-0.59) K/uL Eos # (Auto) (0.00-0.50) K/uL Baso # (Auto) (0.00-0.20) K/uL Immature Gran # (Auto) (0.01-0.20) K/uL PT (9.0-12.0) Seconds INR (0.9-1.1) VBG pH (7.36-7.41) VBG pCO2 (38-50) mmHg VBG pO2 mmHg VBG HCO3 mmol/L VBG O2 Saturation % VBG Base Excess mEq/L Sodium (136-145) mmol/L Potassium (3.5-5.1) mmol/L Chloride (98-107) mmol/L Carbon Dioxide (21-32) mmol/L Anion Gap (3-11) BUN (6-23) mg/dl Creatinine (0.6-1.2) mg/dl Est Cr Clr Drug Dosing ml/min Est GFR ( Amer) ml/min Est GFR (Non-Af Amer) ml/min BUN/Creatinine Ratio (10-20) Glucose (70-99(Fasting)) mg/dl Lactate 0.6 (0.4-2.0) mmol/L Calcium (8.6-10.3) mg/dl Magnesium (1.7-2.4) mg/dl Total Bilirubin (0.2-1.0) mg/dl AST (13-39) U/L ALT (7-52) U/L Alkaline Phosphatase (34-104) U/L Troponin I High Sens (0-14) pg/ml B-Natriuretic Peptide (0-100) pg/ml Total Protein (6.0-8.3) gm/dl Albumin (3.4-5.0) gm/dl Globulin (2.5-4.0) gm/dl Albumin/Globulin Ratio (0.9-2) Procalcitonin (0-0.5) ng/ml Adenovirus (PCR) (NotDetected) B. pertussis DNA (PCR) (NotDetected) B.parapertussis DNA PCR (NotDetected) C. pneumoniae DNA (PCR) (NotDetected) Coronavirus OC43 (PCR) (NotDetected) Coronavirus HKU1 (PCR) (NotDetected) Coronavirus 229E (PCR) (NotDetected) SARS-CoV-2 (PCR) (NotDetected) Coronavirus NL63 (PCR) (NotDetected) Human Metapneumovir PCR (NotDetected) Influenza Type A (PCR) (NotDetected) Influenza Type B (PCR) (NotDetected) M. pneumoniae (PCR) (NotDetected) Parainfluenza 1 (PCR) (NotDetected) Parainfluenza 2 (PCR) (NotDetected) Parainfluenza 3 (PCR) (NotDetected) Parainfluenza 4 (PCR) (NotDetected) RSV (PCR) (NotDetected) Entero/Rhino (PCR) (NotDetected) Discharge Plan Visit Data Chief Complaint: Shortness of Breath/Dyspnea ED Provider: Jodi Farmer Discharge Problem: Acute dyspnea, Non-ST elevation [place] (NSTEMI), Pneumonia, Acute hypoxemic respiratory failure, Sepsis, Leukocytosis, Elevated brain natriuretic peptide (BNP) level, Acute hyperkalemia Forms Stand Alone Forms: [facility] Prescriptions Prescriptions: No Action aspirin 81 mg Tablet,Delayed Release (Dr/Ec) 81 mg PO QAM cyanocobalamin (vitamin B-12) [Vitamin B-12] 500 mcg Tablet 500 mcg PO QAM fluoxetine 40 mg capsule 40 mg PO QAM acetaminophen [Tylenol] 325 mg Tablet 325 mg PO Q6H PRN (Reason: Pain) omega-3 fatty acids 1,000 mg Capsule 1,000 mg PO QAM oxybutynin chloride 5 mg tablet 5 mg PO QAM fluticasone propionate 50 mcg/actuation Balsam,Suspension 2 spray INTRANASAL QAM Rx Instructions: administer into each nostril rosuvastatin 10 mg tablet 10 mg PO HS cholecalciferol (vitamin D3) [Vitamin D3] 125 mcg (5,000 unit) Tablet 125 mcg PO QAM guaifenesin [Mucinex] 600 mg Tablet Extended Release 12hr 600 mg PO Q12 Qty: 10 0RF losartan 50 mg Tablet 50 mg PO QAM Qty: 30 0RF amlodipine 10 mg tablet 10 mg PO HS cetirizine 10 mg Tablet 10 mg PO QAM docusate sodium 100 mg Capsule 100 mg PO BID omeprazole 40 mg capsule,delayed release(DR/EC) 40 mg PO DAILYBB Lokelma 10 gram Powder In Packet 10 g PO QAM Rx Instructions: mix in liquid and drink magnesium hydroxide [Milk of Magnesia] 400 mg/5 mL Suspension 30 ml PO DAILY PRN (Reason: Constipation) hydralazine 100 mg tablet 100 mg PO QAM insulin glargine U-300 conc [Toujeo SoloStar U-300 Insulin] 300 unit/mL (1.5 mL) insulin pen 10 unit SUBCUT DAILY ondansetron HCl 4 mg tablet 4 mg PO Q8 PRN (Reason: Nausea) polyethylene glycol 3350 [SmoothLax] 17 gram Powder In Packet 17 g PO QAM PRN (Reason: Constipation) Rx Instructions: mix 1 packet in 8 oz of fluid and drink tramadol 50 mg tablet 50 mg PO Q6 PRN (Reason: Pain (Scale Score 4-6)) sennosides [Senokot] 8.6 mg Tablet 8.6 mg PO BID PRN (Reason: Constipation) Referrals Referrals: Ghada Salazar MD [Primary Care Provider] -
[2023-11-01 17:48] LABS: Basophils # (auto) 0.06 K/uL (0.00-0.20); Basophils % (auto) 0.4 %; Eosinophils # (auto) 0.03 K/uL (0.00-0.50); Eosinophils % (auto) 0.2 %; Immature Granulocytes # (auto) 0.13 K/uL (0.01-0.20); Immature Granulocytes % (auto) 0.9 %; Lymphocytes # (auto) 0.71 K/uL (1.20-3.40); Lymphocytes % (auto) 4.9 %; Monocytes # (auto) 0.47 K/uL (0.11-0.59); Monocytes % (auto) 3.2 %; Neutrophils # (auto) 13.16 K/uL (1.40-6.50); Neutrophils % (auto) 90.4 %
[2023-11-01 17:50] LABS: Prothrombin Time 10.4 Seconds (9.0-12.0); Troponin I High Sensitivity 67.9 pg/ml (0-14)
[2023-11-01 18:12] LABS: Adenovirus PCR Not Detected (NotDetected); Bordetella parapertussis PCR Not Detected (NotDetected); Bordetella pertussis PCR Not Detected (NotDetected); Chlamydia pneumoniae PCR Not Detected (NotDetected); Coronavirus 229E PCR Not Detected (NotDetected); Coronavirus CoV-2 (COVID19)PCR Not Detected (NotDetected); Coronavirus HKU1 PCR Not Detected (NotDetected); Coronavirus NL63 PCR Not Detected (NotDetected); Coronavirus OC43PCR Not Detected (NotDetected); Human Metapneumovirus PCR Not Detected (NotDetected); Influenza A PCR Not Detected (NotDetected); Influenza B PCR Not Detected (NotDetected); Mycoplasma pneumoniae PCR Not Detected (NotDetected); Parainfluenza Virus 1 PCR Not Detected (NotDetected); Parainfluenza Virus 2 PCR Not Detected (NotDetected); Parainfluenza Virus 3 PCR Not Detected (NotDetected); Parainfluenza Virus 4 PCR Not Detected (NotDetected); Respiratory Syncytial VirusPCR Not Detected (NotDetected); Rhinovirus/Enterovirus PCR Not Detected (NotDetected)
--- NOTE | 2023-11-01 19:31 | XRay Report ---
XR chest 1V portable CLINICAL HISTORY: Dyspnea. COMPARISON STUDY: Chest CT the 2023. Chest radiograph October 12, 2023. FINDINGS: There is no pneumothorax. A moderate to large left pleural effusion has developed since zana or exam. Associated airspace opacity with volume loss is present. There is also possible opacity medi al right lung base. Pulmonary vascular congestion without overt pulmonary edema. IMPRESSION: 1. Interval development of a moderate to large left pleural effusion with associated airspace opacity and volume loss. The opacity may reflect pneumonia or atelectasis. 2. Possible opacity at the medial right lung base. ACT 112: Negative or not required by law. Electronically signed by: Berlin Aguayo M.D. 11/01/2023 7:30 PM
[2023-11-01 19:33] LABS: Appearance Urine Clear (Clear); Bacteria Urine Automated None Seen (None Seen); Bilirubin Urine Negative (Negative); Blood Urine Negative (Negative); Color Urine Yellow; Epithelial Cell Urine Auto 0-2 /hpf (0-2); Glucose Urine UA 1+ (Negative); Ketones Urine Trace (Negative); Leukocyte Esterase Urine Negative (Negative); Nitrite Urine Negative (Negative); Protein Urine 4+ (Negative); RBC Urine Automated 0-2 /hpf (0-2); Specific Gravity Urine 1.023 (1.000-1.030); Urobilinogen Urine Negative (Negative); pH Urine 5.5 (4.5-7.5)
[2023-11-01] MEDS: SODIUM CHLORIDE 0.9% 1,000 ML IV ONE (19:43)
[2023-11-01] MEDS: PIPERACILLIN/TAZOBACTAM 4.5 GM/100 ML BAG IV ONE (19:45)
[2023-11-01] MEDS: CALCIUM GLUCONATE 1,000 MG/60 ML BAG IV STA (19:49)
[2023-11-01] MEDS: cefTRIAXone SODIUM 2,000 MG/50 ML BAG IV STA (20:06)
[2023-11-01] MEDS: AZITHROMYCIN 500 MG in DEXTROSE 5% 250 ML IV STA (20:37)
--- NOTE | 2023-11-01 20:54 | History & Physical Report ---
Date of Service November 01, 2023 Assessment & Plan (1) SOB (shortness of breath): Plan: 73-year-old female with past medical history significant for type 2 diabetes, hyperlipidemia, obesity, CKD stage IV, history of recurrent major depression, vertigo, history of double vision, nystagmus, currently living at assisted living comes because of shortness of breath. Patient states shortness going on for last couple of weeks but getting progressively worsened. She is coughing up mucus whitish color. Denies any fevers. Has some chest tightness. Sometimes she feels dizziness. Currently denies any headache. She has vision issues. No earache. Has some runny nose. No sore throat. Dry throat. Because of dry throat sometimes difficulty swallowing. She is feeling nauseous and has poor appetite for the last few days. No abdominal pain. Normal bowel and bladder movements. Has some ankle swelling. Usually ambulates with a rollator walker but lately is using mostly wheelchair. Today oxygen sats 86 Percent on RA. With oxygen supplementation Saturating Okay. Minimal Exertion Making Her Short of Breath. Daughter Is in the Room. Patient Was Admitted in Early September with KAVITA and Metabolic Acidosis and Confusion. Confusion Thought to Be from Renal Uremia and Possible Untreated Sleep Apnea. She Was on Lokelma in the past but Because of Her Outpatient Labs Showed Hypokalemia Lokelma Was Stopped and Currently She is on Potassium Supplements. Shortness of Breath Hypoxia Requiring 2 L Oxygen Large Left Pleural Effusions Possible Pneumonia Will Follow CT Chest Empiric Cefepime and Doxy Pulmonary Consult in A.M. for Further Recommendations Chest Tightness EKG Okay Initial Troponin 67 and Repeat Is 63 Chronic Elevation of Troponin Will Follow Serial Cardiac Enzymes and Echo Will Keep Her N.P.O. If Any Concerns Will Consult Cardiology Hyperkalemia Potassium 5.7 History of Hyperkalemia but Outpatient Labs Showed Hypokalemia and Currently on potassium Supplements Which Will Be Held Will Give a Dose of Lokelma, Insulin and Dextrose Follow Repeat Labs Nephrology Consult in A.M. for Further Recommendations CKD Stage IV Presented Creatinine of 2.7 Which Seems to Be around Baseline We Will Follow Repeat Labs Nephrology Consulted Type 2 Diabetes Will Hold Home Long Acting Insulin Lantus 4 Units Daily As Patient Is N.P.O. Currently Sliding Scale We Will Monitor Morbid Obesity Needs Counseling Sleep Apnea CPAP/Oxygen Nightly Depression on Fluoxetine Hypertension on Amlodipine/Hydralazine. Will Hold Losartan As Patient Is Currently Hyperkalemic Will Monitor Hyperlipidemia on Statin GERD on Omeprazole Anemia of Chronic Disease Hemoglobin 9.4 Will Monitor DVT Prophylaxis SCDs and Heparin Subcu Disposition Telemetry CODE STATUS Full Code if Chance of Recovery As per Discussion with the Patient History of Present Illness Chief Complaint: Shortness of breath Primary Care Provider: Ghada Salazar MD 73-year-old female with past medical history significant for type 2 diabetes, hyperlipidemia, obesity, CKD stage IV, history of recurrent major depression, vertigo, history of double vision, nystagmus, currently living at assisted living comes because of shortness of breath. Patient states shortness going on for last couple of weeks but getting progressively worsened. She is coughing up mucus whitish color. Denies any fevers. Has some chest tightness. Sometimes she feels dizziness. Currently denies any headache. She has vision issues. No earache. Has some runny nose. No sore throat. Dry throat. Because of dry throat sometimes difficulty swallowing. She is feeling nauseous and has poor appetite for the last few days. No abdominal pain. Normal bowel and bladder movements. Has some ankle swelling. Usually ambulates with a rollator walker but lately is using mostly wheelchair. Today oxygen sats 86 Percent on RA. With oxygen supplementation Saturating Okay. Minimal Exertion Making Her Short of Breath. Daughter Is in the Room. Patient Was Admitted in Early September with KAVITA and Metabolic Acidosis and Confusion. Confusion Thought to Be from Renal Uremia and Possible Untreated Sleep Apnea. She Was on Lokelma in the past but Because of Her Outpatient Labs Showed Hypokalemia Lokelma Was Stopped and Currently She is on Potassium Supplements. past Medical History. As Mentioned above Past Surgical History. EGD. Hysterectomy. Colonoscopy. Knee Arthroscopy. Irrigation of Sphenoid Sinus. Nasal Sinus Endoscopy. Stereotactic Cranial Extradural Navigation. Social History. No Smoking. Alcohol Rarely. No Drug Use. Family History. Daughter Had Breast Cancer. Mother Had Cerebral Hemorrhage. Diabetes. Hypertension. Stroke. Father Had AAA. Allergies Allergy/AdvReac Type Severity Reaction Status Date / Time No Known Allergies Allergy Verified 11/01/23 19:45 Home Medications Medication Instructions Recorded Confirmed Type aspirin 81 mg tablet,delayed 81 mg PO QAM 03/13/19 11/01/23 History release cyanocobalamin (vitamin B-12) 500 500 mcg PO QAM 03/13/19 11/01/23 History mcg tablet (Vitamin B-12) acetaminophen 325 mg tablet 325 mg PO Q6H PRN Pain 09/09/23 11/01/23 History (Tylenol) cholecalciferol (vitamin D3) 125 125 mcg PO QAM 09/09/23 11/01/23 History mcg (5,000 unit) tablet (Vitamin D3) fluoxetine 40 mg capsule 40 mg PO QAM 09/09/23 11/01/23 History fluticasone propionate 50 2 spray intranasal QAM 09/09/23 11/01/23 History mcg/actuation nasal spray,suspension omega-3 fatty acids 1,000 mg 1,000 mg PO QAM 09/09/23 11/01/23 History capsule rosuvastatin 10 mg tablet 10 mg PO HS 09/09/23 11/01/23 History guaifenesin 600 mg tablet, 600 mg PO Q12 #10 tabs 09/15/23 11/01/23 Rx extended release 12 hr (Mucinex) losartan 50 mg tablet 50 mg PO QAM #30 tabs 09/25/23 11/01/23 Rx amlodipine 10 mg tablet 10 mg PO HS 10/17/23 11/01/23 History cetirizine 10 mg tablet 10 mg PO QAM 10/17/23 11/01/23 History docusate sodium 100 mg capsule 100 mg PO BID 10/17/23 11/01/23 History hydralazine 100 mg tablet 100 mg PO QAM 10/17/23 11/01/23 History insulin glargine U-300 conc 300 8 unit subcut DAILY 10/17/23 11/01/23 History unit/mL (1.5 mL) subcutaneous pen (Toujeo SoloStar U-300 Insulin) magnesium hydroxide 400 mg/5 mL 30 ml PO DAILY PRN Constipation 10/17/23 11/01/23 History oral suspension (Milk of Magnesia) omeprazole 40 mg capsule,delayed 40 mg PO DAILYBB 10/17/23 11/01/23 History release ondansetron HCl 4 mg tablet 4 mg PO Q8 PRN Nausea 10/17/23 11/01/23 History polyethylene glycol 3350 17 gram 17 g PO QAM PRN Constipation 10/17/23 11/01/23 History oral powder packet (SmoothLax) sennosides 8.6 mg tablet (Senokot) 8.6 mg PO BID PRN Constipation 10/17/23 11/01/23 History tramadol 50 mg tablet 50 mg PO Q6 PRN Pain (Scale Score 10/17/23 11/01/23 History 4-6) insulin lispro 100 unit/mL 5 unit subcut AC 11/01/23 11/01/23 History subcutaneous pen (Humalog KwikPen (U-100) Insulin) potassium chloride 20 mEq 20 meq PO BID 11/01/23 11/01/23 History tablet,extended release(part/cryst) Past Med/Surg History Problem List (Updated 11/02/23 @ 09:41 by Lars Fernando PA-C) Hypoxia Pleural effusion SOB (shortness of breath) Acute hyperkalemia (Acute) Elevated brain natriuretic peptide (BNP) level (Acute) Leukocytosis (Acute) Sepsis (Acute) Acute hypoxemic respiratory failure (Acute) Pneumonia (Acute) Non-ST elevation MA (NSTEMI) (Acute) Acute dyspnea (Acute) Metabolic acidosis Non-ST elevation MA (NSTEMI) (Acute) Acute uremia (Acute) Acute kidney injury superimposed on chronic kidney disease (Acute) Acute confusion (Acute) Type 2 diabetes mellitus Acute kidney injury superimposed on CKD Pneumonia (Acute) Medical History Acidosis Hypertensive urgency Surgical History History of nasal surgery Family History Other Breast cancer No pertinent family history Social History Smoking Status: Never smoker Second Hand Exposure: No; Do You Dip or Chew Tobacco: No; Hx Alcohol Use: No Hx Substance Use: No Preferred Language: Uzbek Communication Ability: Effective Cook Morning Required: No Beliefs That Will Affect Care: None Current Living Situation: Alone Current Living Situation Comment: [facility] Feels Safe at Home: Yes Assistive Devices: Walker Review of Systems Review of Systems: All systems reviewed & are unremarkable except as noted in HPI & below Physical Exam Physical Exam: General- Not in distress Head- atraumatic Eyes- PERRL. ENT- oropharynx clear Neck- supple, no JVD. Lungs- clear to auscultation no wheezing or crackles Heart- regular rate and rhythm; no murmur, no gallop. Abdomen- normal bowel sounds, soft, nontender, no distension. Extremities- no pretibial edema, no erythema seen. Neuro- alert, oriented PERRL, no facial palsy; no dysarthria; moves extremities. Results & Data Results & Data Vital Signs (Past 12 Hours) Vital Signs Temp Pulse Pulse Resp BP BP Pulse Ox 11/01/23 19:57 83 21 95 11/01/23 19:00 94 H 26 H 183/86 H 93 11/01/23 17:17 87 23 186/94 H 95 11/01/23 16:40 87 25 H 96 11/01/23 16:29 91 H 11/01/23 16:20 85 11/01/23 16:20 88 L 11/01/23 16:20 36.5 C 93 H 20 185/113 H 95 11/01/23 16:20 11/01/23 16:08 88 26 H 184/95 H 95 O2 Del Method O2 Flow Rate 11/01/23 19:57 Nasal Cannula 2 11/01/23 19:00 Nasal Cannula 2 11/01/23 17:17 Nasal Cannula 3 11/01/23 16:40 Nasal Cannula 3 11/01/23 16:29 11/01/23 16:20 11/01/23 16:20 Room Air 11/01/23 16:20 Nasal Cannula 3 11/01/23 16:20 Nasal Cannula 3 11/01/23 16:08 Room Air 2 Diagnostic Findings Laboratory Results WBC 14.56 K/ul (4.8-10.8) H 11/01/23 17:03 RBC 3.35 M/uL (4.20-5.40) L 11/01/23 17:03 Hgb 9.4 g/dl (12.0-16.0) L 11/01/23 17:03 Hct 31.4 % (37.0-47.0) L 11/01/23 17:03 MCV 93.7 fL (80.0-100.0) 11/01/23 17:03 MCH 28.1 pg (25.0-34.0) 11/01/23 17:03 MCHC 29.9 g/dL (32.0-36.0) L 11/01/23 17:03 RDW Std Deviation 49.3 fL (36.4-46.3) H 11/01/23 17:03 RDW Coeff of Aure 14.5 % (11.5-14.5) 11/01/23 17:03 Plt Count 323 K/uL (130-400) 11/01/23 17:03 MPV 8.8 fL (9.4-12.4) L 11/01/23 17:03 Immature Gran % (Auto) 0.9 % 11/01/23 17:03 Neut % (Auto) 90.4 % 11/01/23 17:03 Lymph % (Auto) 4.9 % 11/01/23 17:03 [place] % (Auto) 3.2 % 11/01/23 17:03 Eos % (Auto) 0.2 % 11/01/23 17:03 Baso % (Auto) 0.4 % 11/01/23 17:03 Neut # (Auto) 13.16 K/uL (1.40-6.50) H 11/01/23 17:03 Lymph # (Auto) 0.71 K/uL (1.20-3.40) L 11/01/23 17:03 [place] # (Auto) 0.47 K/uL (0.11-0.59) 11/01/23 17:03 Eos # (Auto) 0.03 K/uL (0.00-0.50) 11/01/23 17:03 Baso # (Auto) 0.06 K/uL (0.00-0.20) 11/01/23 17:03 Immature Gran # (Auto) 0.13 K/uL (0.01-0.20) 11/01/23 17:03 PT 10.4 Seconds (9.0-12.0) 11/01/23 17:03 INR 1.0 (0.9-1.1) 11/01/23 17:03 VBG pH 7.36 (7.36-7.41) 11/01/23 17:08 VBG pCO2 43 mmHg (38-50) 11/01/23 17:08 VBG pO2 46 mmHg 11/01/23 17:08 VBG HCO3 24 mmol/L 11/01/23 17:08 VBG O2 Saturation 81.6 % 11/01/23 17:08 VBG Base Excess -1.3 mEq/L 11/01/23 17:08 Sodium 136 mmol/L (136-145) 11/01/23 17:03 Potassium 5.7 mmol/L (3.5-5.1) H 11/01/23 17:03 Chloride 104 mmol/L (98-107) 11/01/23 17:03 Carbon Dioxide 24 mmol/L (21-32) 11/01/23 17:03 Anion Gap 8 (3-11) 11/01/23 17:03 BUN 31 mg/dl (6-23) H 11/01/23 17:03 Creatinine 2.70 mg/dl (0.6-1.2) H 11/01/23 17:03 Est Cr Clr Drug Dosing 19.4 ml/min 11/01/23 17:03 Est GFR ( Amer) 19.3 ml/min 11/01/23 17:03 Est GFR (Non-Af Amer) 16.7 ml/min 11/01/23 17:03 BUN/Creatinine Ratio 11.5 (10-20) 11/01/23 17:03 Glucose 140 mg/dl (70-99(Fasting)) H 11/01/23 17:03 Lactate 0.6 mmol/L (0.4-2.0) 11/01/23 18:35 Calcium 9.7 mg/dl (8.6-10.3) 11/01/23 17:03 Magnesium 2.1 mg/dl (1.7-2.4) 11/01/23 17:03 Total Bilirubin 0.4 mg/dl (0.2-1.0) 11/01/23 17:03 AST 12 U/L (13-39) L 11/01/23 17:03 ALT 15 U/L (7-52) 11/01/23 17:03 Alkaline Phosphatase 124 U/L (34-104) H 11/01/23 17:03 Troponin I High Sens 63.8 pg/ml (0-14) H* 11/01/23 17:38 B-Natriuretic Peptide 257 pg/ml (0-100) H 11/01/23 17:03 Total Protein 7.0 gm/dl (6.0-8.3) 11/01/23 17:03 Albumin 3.9 gm/dl (3.4-5.0) 11/01/23 17:03 Globulin 3.1 gm/dl (2.5-4.0) 11/01/23 17:03 Albumin/Globulin Ratio 1.3 (0.9-2) 11/01/23 17:03 Procalcitonin 0.09 ng/ml (0-0.5) 11/01/23 17:03 Urine Color Yellow 11/01/23 19:00 Urine Appearance Clear (Clear) 11/01/23 19:00 Urine pH 5.5 (4.5-7.5) 11/01/23 19:00 Ur Specific [place] 1.023 (1.000-1.030) 11/01/23 19:00 Urine Protein 4+ (Negative) H 11/01/23 19:00 Urine Glucose (UA) 1+ (Negative) H 11/01/23 19:00 Urine Ketones Trace (Negative) H 11/01/23 19:00 Urine Blood Negative (Negative) 11/01/23 19:00 Urine Nitrite Negative (Negative) 11/01/23 19:00 Urine Bilirubin Negative (Negative) 11/01/23 19:00 Urine Urobilinogen Negative (Negative) 11/01/23 19:00 Ur Leukocyte Esterase Negative (Negative) 11/01/23 19:00 Urine WBC (Auto) 6-10 /hpf (0-5) H 11/01/23 19:00 Urine RBC (Auto) 0-2 /hpf (0-2) 11/01/23 19:00 U Hyaline Cast (Auto) 6-10 /lpf (0-2) H 11/01/23 19:00 U Epithel Cells (Auto) 0-2 /hpf (0-2) 11/01/23 19:00 Urine Bacteria (Auto) None Seen (None Seen) 11/01/23 19:00 Adenovirus (PCR) Not Detected (NotDetected) 11/01/23 17:11 B. pertussis DNA (PCR) Not Detected (NotDetected) 11/01/23 17:11 B.parapertussis DNA PCR Not Detected (NotDetected) 11/01/23 17:11 C. pneumoniae DNA (PCR) Not Detected (NotDetected) 11/01/23 17:11 Coronavirus OC43 (PCR) Not Detected (NotDetected) 11/01/23 17:11 Coronavirus HKU1 (PCR) Not Detected (NotDetected) 11/01/23 17:11 Coronavirus 229E (PCR) Not Detected (NotDetected) 11/01/23 17:11 SARS-CoV-2 (PCR) Not Detected (NotDetected) 11/01/23 17:11 Coronavirus NL63 (PCR) Not Detected (NotDetected) 11/01/23 17:11 Human Metapneumovir PCR Not Detected (NotDetected) 11/01/23 17:11 Influenza Type A (PCR) Not Detected (NotDetected) 11/01/23 17:11 Influenza Type B (PCR) Not Detected (NotDetected) 11/01/23 17:11 M. pneumoniae (PCR) Not Detected (NotDetected) 11/01/23 17:11 Parainfluenza 1 (PCR) Not Detected (NotDetected) 11/01/23 17:11 Parainfluenza 2 (PCR) Not Detected (NotDetected) 11/01/23 17:11 Parainfluenza 3 (PCR) Not Detected (NotDetected) 11/01/23 17:11 Parainfluenza 4 (PCR) Not Detected (NotDetected) 11/01/23 17:11 RSV (PCR) Not Detected (NotDetected) 11/01/23 17:11 Entero/Rhino (PCR) Not Detected (NotDetected) 11/01/23 17:11 Impressions Chest X-Ray 11/01/23 16:40 XR chest 1V portable CLINICAL HISTORY: Dyspnea. COMPARISON STUDY: Chest CT the 2023. Chest radiograph October 12, 2023. FINDINGS: There is no pneumothorax. A moderate to large left pleural effusion has developed since prior exam. Associated airspace opacity with volume loss is present. There is also possible opacity medial right lung base. Pulmonary vascular congestion without overt pulmonary edema. IMPRESSION: 1. Interval development of a moderate to large left pleural effusion with associated airspace opacity and volume loss. The opacity may reflect pneumonia or atelectasis. 2. Possible opacity at the medial right lung base. ACT 112: Negative or not required by law. Electronically signed by: Berlin Aguayo M.D. 11/01/2023 7:30 PM ECG Additional Comments: ECG. Normal Sinus Rhythm with Sinus Arrhythmia Rate of 84. No Significant Change Was Found. QTc 451. Code Status & VTE Plan VTE Prophylaxis Plan VTE Prophylaxis will be ordered: Yes
[2023-11-01] MEDS: SODIUM ZIRCONIUM CYCLOSILICATE 10 GM PACKET PO STA (20:56)
[2023-11-01] MEDS: DEXTROSE 50% 50 ML SYRINGE IV STA (20:58)
[2023-11-01] MEDS: SODIUM CHLORIDE 0.9% 500 ML IV ONE (21:04)
[2023-11-01] MEDS: NovoLIN-R INSULIN PER UNIT CHARGE IV STA (21:09)
--- NOTE | 2023-11-01 21:12 | CT Scan Report ---
Exam(s): CT CHEST Without Contrast EXAM: CT Chest Without Intravenous Contrast CLINICAL HISTORY: Reason for exam: hypoxia; shortness of breath. TECHNIQUE: Axial computed tomography images of the chest without intravenous contrast. CTDI is 22.82 mGy and DLP is 707.71 mGy-cm. Automated exposure control was utilized for the study. A dose lowering technique was utilized adhering to the principles of ALARA. COMPARISON: September 09, 2023 FINDINGS: Lungs: Left lower lobe consolidation as well as partial consolidation of the lingula and right lower lobe consistent with atelectasis or pneumonia. There is also slight hazy increased density in the central lungs bilaterally to seen possible edema/CHF. No mass. Pleural space: There are new bilateral pleural effusions measuring up to 4 cm layering posteriorly. No pneumothorax. Heart: The heart is not enlarged. Mild coronary calcification is present. No pericardial effusion. Bones/joints: Moderate multilevel degenerative changes throughout the spine. No acute fracture or subluxation is seen. Soft tissues: Unremarkable. Vasculature: The thoracic aorta is mildly calcified but nondilated. This is a noncontrast study. Lymph nodes: Unremarkable. No enlarged lymph nodes. IMPRESSION: 1. There are new bilateral pleural effusions measuring up to 4 cm layering posteriorly. 2. Left lower lobe consolidation as well as partial consolidation of the lingula and right lower lobe consistent with atelectasis or pneumonia. There is also slight hazy increased density in the central lungs bilaterally to seen possible edema/CHF. Electronically signed by: Heron Bergman MD 11/01/23 21:11 PM
[2023-11-01] MEDS ORDERED: CARBOHYDRATES FOR HYPOGLYCEMIA PO PRN (22:01)
[2023-11-01] MEDS ORDERED: GLUCOSE 10 TAB/TUBE PO PRN (22:01)
[2023-11-01] MEDS ORDERED: DEXTROSE 50% 50 ML SYRINGE IV PRN (22:01)
[2023-11-01] MEDS ORDERED: GLUCAGON FOR INJ 1 MG VIAL SQ PRN (22:01)
[2023-11-01] MEDS ORDERED: GLUCOSE 40% GEL 15 GM TUBE PO PRN (22:01)
[2023-11-01] MEDS ORDERED: MAGNESIUM HYDROXIDE SUSP 30 ML UDC PO PRN (22:01)
[2023-11-01] MEDS ORDERED: NITROGLYCERIN SL 0.4 MG/TAB TAB SL PRN (22:01)
[2023-11-01] MEDS ORDERED: SENNA 8.6 MG TAB PO PRN (22:01)
[2023-11-01] MEDS ORDERED: POLYETHYLENE (MIRALAX) 17 GM PACK PO PRN (22:01)
[2023-11-01] MEDS: HEPARIN SOD 5,000 UNIT/0.5 ML VIAL SQ SCH (23:07)
[2023-11-01] MEDS: DOCUSATE SODIUM 100 MG CAP PO SCH (23:07)
[2023-11-01] MEDS: guaiFENesin 600 MG TABCR PO SCH (23:07)
[2023-11-01] MEDS: amLODIPine BESYLATE 5 MG TAB PO SCH (23:07)
[2023-11-01] MEDS: ROSUVASTATIN CALCIUM 10 MG TAB PO SCH (23:07)
[2023-11-02] MEDS: INSULIN ASPART PER UNIT CHARGE SC SCH ×2 (00:19→17:59)
[2023-11-02 06:05] LABS: Basophils # (auto) 0.05 K/uL (0.00-0.20); Basophils % (auto) 0.5 %; Eosinophils # (auto) 0.12 K/uL (0.00-0.50); Eosinophils % (auto) 1.1 %; Hematocrit (blood only) 27.1 % (37.0-47.0); Hemoglobin 8.3 g/dl (12.0-16.0); Immature Granulocytes # (auto) 0.08 K/uL (0.01-0.20); Immature Granulocytes % (auto) 0.7 %; Lymphocytes # (auto) 1.11 K/uL (1.20-3.40); Mean Corpuscular Hemoglobin 28.7 pg (25.0-34.0); Mean Corpuscular Hgb Conc 30.6 g/dL (32.0-36.0); Mean Corpuscular Volume 93.8 fL (80.0-100.0); Mean Platelet Volume 8.9 fL (9.4-12.4); Monocytes # (auto) 0.55 K/uL (0.11-0.59); Neutrophils # (auto) 9.14 K/uL (1.40-6.50); Neutrophils % (auto) 82.7 %; Platelet Count 290 K/uL (130-400); RDW Coefficient of Variation 14.6 % (11.5-14.5); RDW Standard Deviation 49.6 fL (36.4-46.3); Red Blood Count 2.89 M/uL (4.20-5.40); White Blood Count 11.05 K/ul (4.8-10.8)
[2023-11-02 06:22] LABS: BUN Creatinine Ratio 11.7 (10-20); Calcium 8.9 mg/dl (8.6-10.3); Creatinine Clr Calc Pharmacy 19.9 ml/min; Est GFR (African American) 19.9 ml/min; Est GFR (Non-African American) 17.1 ml/min
[2023-11-02] MEDS: PANTOprazole 40 MG TAB PO SCH (06:28)
[2023-11-02 06:48] LABS: Troponin I High Sensitivity 63.1 pg/ml (0-14)
[2023-11-02 07:15] LABS: Estimated Average Glucose 140 mg/dl; Hemoglobin A1C 6.5 % (4.5-5.6)
[2023-11-02] MEDS: LANTUS PER UNIT CHARGE SQ SCH (08:30)
[2023-11-02] MEDS: FLUoxetine HCL 20 MG CAP PO SCH (08:55)
[2023-11-02] MEDS: DOXYCYCLINE HYCLATE 100 MG in DEXTROSE 5% MINI-B 100 ML IV SCH (08:55)
[2023-11-02] MEDS: CEFEPIME 1,000 MG in SYRINGE 0 ML IV SCH (08:55)
[2023-11-02] MEDS: CETIRIZINE HCL 10 MG TABLET PO SCH (08:56)
[2023-11-02] MEDS: CYANOCOBALAMIN (B-12) 500 MCG TABLET PO SCH (08:56)
[2023-11-02] MEDS: CHOLECALCIFEROL 125 MCG (5,000 UNITS) TAB PO SCH (08:56)
[2023-11-02] MEDS: hydrALAZINE TAB 50 MG TAB PO SCH (08:56)
[2023-11-02] MEDS: ASPIRIN 81 MG ECTAB PO SCH (08:56)
[2023-11-02] MEDS: FLUTICASONE PROPIONATE NA SPR 16 GM BTL SCH (08:57)
--- NOTE | 2023-11-02 09:19 | Electrocardiogram Report ---
Test Reason : Blood Pressure : / mmHG Vent. Rate : 084 BPM Atrial Rate : 084 BPM P-R Int : 164 ms QRS Dur : 084 ms QT Int : 382 ms P-R-T Axes : 032 -05 032 degrees QTc Int : 451 ms Normal sinus rhythm with sinus arrhythmia Normal ECG When compared with ECG of 12-OCT-2023 16:17, No significant change was found Confirmed by Everardo Oliva ([id number]) on 11/02/2023 9:19:22 AM Referred By: Ghada Salazar Confirmed By:Everardo Oliva
--- NOTE | 2023-11-02 09:29 | Electrocardiogram Report ---
Test Reason : Blood Pressure : / mmHG Vent. Rate : 089 BPM Atrial Rate : 089 BPM P-R Int : 162 ms QRS Dur : 094 ms QT Int : 378 ms P-R-T Axes : 039 034 045 degrees QTc Int : 459 ms Normal sinus rhythm Possible Anterolateral infarct , age undetermined Abnormal ECG When compared with ECG of 01-NOV-2023 16:27, (unconfirmed) No significant change was found Confirmed by Everardo Oliva ([id number]) on 11/02/2023 9:29:33 AM Referred By: Ghada Salazar Confirmed By:Everardo Oliva
--- NOTE | 2023-11-02 09:36 | Electrocardiogram Report ---
Test Reason : Blood Pressure : / mmHG Vent. Rate : 086 BPM Atrial Rate : 086 BPM P-R Int : 160 ms QRS Dur : 090 ms QT Int : 372 ms P-R-T Axes : 039 040 047 degrees QTc Int : 445 ms Normal sinus rhythm Normal ECG When compared with ECG of 01-NOV-2023 21:52, (unconfirmed) No significant change was found Confirmed by Everardo Oliva ([id number]) on 11/02/2023 9:36:04 AM Referred By: Ghada Salazar Confirmed By:Everardo Oliva
--- NOTE | 2023-11-02 09:46 | Pulmonary Consultation ---
Date of Consultation November 02, 2023 Assessment & Plan (1) Pleural effusion: Patient presenting with bilateral LEFT greater than right effusion with associated dyspnea and hypoxemia. Bedside ultrasound was performed which demonstrates moderate LEFT-sided effusion. In the setting of leukocytosis and concerns for compressive atelectasis versus pneumonia process, the patient would benefit from interrogation of the fluid. Certainly, differentials could include volume overload versus empyema versus etc. Patient and family agreeable to undergo pleural intervention. Please see procedure note. Sampling of fluid would be beneficial to assess for infectious sources as well as delineate a transudative versus exudative process. Agree with abx. (2) Hypoxia: Secondary to fusion with possible infiltrative LEFT lower lobe process versus atelectasis. Would recommend incentive spirometry. Agree with antibiotic coverage at this point. Titrate down supplemental oxygen as tolerated (3) SOB (shortness of breath): Secondary to #1. Additionally, the patient certainly may have a component of congestive heart failure. Awaiting formal echocardiogram. Hopefully, removal of fluid will be of benefit to the patient. Otherwise, we will see how the patient improves post removal of pleural fluid. (4) Elevated brain natriuretic peptide (BNP) level: Patient may benefit from diuresis, however this may be difficult in the chronically ill patient with CKD 4. Will defer to primary service and other specialists for further management of this moving forward. Plan Thank you for allowing us to participate in the care of this pleasant patient. Pulmonary medicine will continue to follow along. History of Present Illness Reason for Consultation: large left pleural effusion Requesting Physician: Dr. Chatterjee Attending Physician: David Sutton MD History of Present Illness Patient is a 73-year-old female with a significant past medical history of type 2 diabetes, hyperlipidemia, obesity, CKD 4, depression, vertigo, nystagmus, who is currently living in assisted living facility who presented to the emergency department with dyspnea on exertion with associated hypoxia. The patient was evaluated in the emergency department and found to be requiring supplemental oxygen as high as 4 L. Chest x-ray demonstrated large LEFT-sided effusion and follow-up CT showed bilateral effusions LEFT greater than right with associated compressive atelectasis on the LEFT with possible pneumonia. She received antibiotics in the form of cefepime and doxycycline. She is still requiring supplemental oxygen at this point. Upon evaluation in room 206, the patient is awake, alert, and oriented. Her daughter is present at bedside as well and helps to supplement history. She reports that she has been progressively worsening in her shortness of breath of the last few weeks, however over the last 24 to 48 hours, the symptoms promptly worsened. She notes a cough that is been ongoing for some time, but again had worsened over the last 24 to 48 hours. No chest pain, but does describe some occasional heaviness across her chest. She denies any palpitations, dizziness, or lightheadedness, she does report edema to the bilateral lower extremities and hands. The patient is a lifelong non-smoker. She reports a prior pneumonia in August of this year. No history of asthma. No other pulmonary diagnoses. 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 No occupational exposures otherwise. She reports no fevers, chills, abdominal pain, or hemoptysis. Allergies Allergy/AdvReac Type Severity Reaction Status Date / Time No Known Allergies Allergy Verified 11/01/23 19:45 Home Medications Medication Instructions Recorded Confirmed Type aspirin 81 mg tablet,delayed 81 mg PO QAM 03/13/19 11/01/23 History release cyanocobalamin (vitamin B-12) 500 500 mcg PO QAM 03/13/19 11/01/23 History mcg tablet (Vitamin B-12) acetaminophen 325 mg tablet 325 mg PO Q6H PRN Pain 09/09/23 11/01/23 History (Tylenol) cholecalciferol (vitamin D3) 125 125 mcg PO QAM 09/09/23 11/01/23 History mcg (5,000 unit) tablet (Vitamin D3) fluoxetine 40 mg capsule 40 mg PO QAM 09/09/23 11/01/23 History fluticasone propionate 50 2 spray intranasal QA 09/09/23 11/01/23 History mcg/actuation nasal spray,suspension omega-3 fatty acids 1,000 mg 1,000 mg PO QAM 09/09/23 11/01/23 History capsule rosuvastatin 10 mg tablet 10 mg PO HS 09/09/23 11/01/23 History guaifenesin 600 mg tablet, 600 mg PO Q12 #10 tabs 09/15/23 11/01/23 Rx extended release 12 hr (Mucinex) losartan 50 mg tablet 50 mg PO QAM #30 tabs 09/25/23 11/01/23 Rx amlodipine 10 mg tablet 10 mg PO HS 10/17/23 11/01/23 History cetirizine 10 mg tablet 10 mg PO QAM 10/17/23 11/01/23 History docusate sodium 100 mg capsule 100 mg PO BID 10/17/23 11/01/23 History hydralazine 100 mg tablet 100 mg PO QAM 10/17/23 11/01/23 History insulin glargine U-300 conc 300 8 unit subcut DAILY 10/17/23 11/01/23 History unit/mL (1.5 mL) subcutaneous pen (Toujeo SoloStar U-300 Insulin) magnesium hydroxide 400 mg/5 mL 30 ml PO DAILY PRN Constipation 10/17/23 11/01/23 History oral suspension (Milk of Magnesia) omeprazole 40 mg capsule,delayed 40 mg PO DAILYBB 10/17/23 11/01/23 History release ondansetron HCl 4 mg tablet 4 mg PO Q8 PRN Nausea 10/17/23 11/01/23 History polyethylene glycol 3350 17 gram 17 g PO QAM PRN Constipation 10/17/23 11/01/23 History oral powder packet (SmoothLax) sennosides 8.6 mg tablet (Senokot) 8.6 mg PO BID PRN Constipation 10/17/23 11/01/23 History tramadol 50 mg tablet 50 mg PO Q6 PRN Pain (Scale Score 10/17/23 11/01/23 History 4-6) insulin lispro 100 unit/mL 5 unit subcut AC 11/01/23 11/01/23 History subcutaneous pen (Humalog KwikPen (U-100) Insulin) potassium chloride 20 mEq 20 meq PO BID 11/01/23 11/01/23 History tablet,extended release(part/cryst) Patient History Medical History Acidosis Hypertensive urgency Surgical History History of nasal surgery Family History Other Breast cancer No pertinent family history Social History Smoking Status: Never smoker Second Hand Exposure: No; Do You Dip or Chew Tobacco: No; Hx Alcohol Use: No Hx Substance Use: No Preferred Language: Turkish Communication Ability: Effective Frankfurter Inspector Required: No Beliefs That Will Affect Care: None Current Living Situation: Alone Current Living Situation Comment: [facility] assisted living Feels Safe at Home: Yes Assistive Devices: Walker Review of Systems Review of Systems: A complete 10 point review of systems was reviewed with the patient with pertinent positives and negatives as per history of present illness. All else were negative. Physical Exam Physical Exam: VITAL SIGNS - Vital signs and nursing notes were reviewed. GENERAL - 73-year-old female appearing her stated age who is in no acute distress. Communicates well with provider and answers questions appropriately. SKIN - Without rashes or lesions. NOSE - Midline and without cyanosis. MOUTH/OROPHARYNX - Without perioral cyanosis. NECK - Neck with FROM. LUNGS - Chest wall evaluation demonstrates normal chest wall A:P diameter. Aus cultation reveals diminished lung sounds on the left. No wheezes. CARDIAC - RRR with S1/S2. No murmur, rubs, or gallops appreciated. ABDOMEN - Abdominal inspection demonstrates an obese abdomen. BS normoactive all four quadrants. No tenderness, palpable masses, or ascites noted. EXTREMITIES - Nail clubbing not present. No peripheral cyanosis. No pretibial edema present. +3/5 radial palpated throughout. PSYCH - A&Ox3 and cooperates fully with examiner. Pt is very pleasant and interacts well with examiner. Results & Data Results & Data Vital Signs (Past 12 Hours) Vital Signs Temp Pulse Pulse Resp BP Pulse Ox O2 Del Method 11/02/23 09:00 Nasal Cannula 11/02/23 07:59 36.9 C 83 20 177/75 H 95 Nasal Cannula 11/02/23 07:09 81 11/02/23 03:00 36.7 C 86 20 140/102 H 93 Nasal Cannula 11/02/23 00:15 178/88 H 11/01/23 22:19 81 18 178/89 H 93 Nasal Cannula 11/01/23 22:00 Nasal Cannula 11/01/23 21:35 24 163/85 H 96 Nasal Cannula O2 Flow Rate 11/02/23 09:00 2 11/02/23 07:59 4 11/02/23 07:09 11/02/23 03:00 4 11/02/23 00:15 11/01/23 22:19 3 11/01/23 22:00 3 07/17/24 21:35 3 PG Care Time/CCT Total # of Minutes Spent Total Time Spent with Patient: Total time spent is greater than 50% in coordination of care (as documented) at patient's floor/unit and/or counseling patient: Coding Level of Care Code 48930 INT INP/OBS CARE 3/75MIN Diagnoses Pleural effusion J90 Hypoxia R09.02 SOB (shortness of breath) R06.02 Elevated brain natriuretic peptide (BNP) level R79.89
--- OUTSIDE RECORDS SUMMARY | 2023-11-02 09:46 | External Medical Summary | Summary of Care ---
Author Name Unknown Organization [facility] Address [address] [place] [address] Phone [phone] Care Team Providers Care Tool Crib Attendant Name Role Phone Ghada Salazar MD Primary Care Provider Reason for Visit * Reason Onset Date Comments Test Results 10/24/2023 Encounter Details Date Type Department Care Team (Late st Contact Info) Description 10/24/2023 Telephone NephrologyAlber [address] [place] [address] Juan Tovar MD [address] [place] [address] Test Results Allergies No known active allergiesdocumented as of this encounter (statuses as of 11/01/2023) Medications Medication Sig Dispensed Refills Start Date End Date Status Aspirin EC 81 MG Oral Tablet Delayed ReleaseIndication s:Type 2 diabetes mellitus with hemoglobin A1c goal of less than 7.0% ([facility]) Take 1 Tablet by mouth in the morning. Active B-12 500 MCG Oral TabletIndications :B12 deficiency Take by mouth . Acti ve D3 5000 125 MCG (5000 UT) Oral Capsule (Cholecalciferol) Indications:Vitam in D deficiency Take 1 Capsule by mouth in the morning. Active Acetaminophen 325 MG Oral Tablet Take 1 Tablet by mouth every 6 hours as needed for Pain, Moderate. Active oxyBUTYnin Chloride 5 MG Oral Tablet (Ditropan)Indicat ions:Overactive bladder TAKE 1 TABLET BY MOUTH EVERY DAY IN THE MORNING 90 Tablet 3 4 Active Fluticasone Propionate 50 MCG/ACT Nasal Suspension (Flonase)Indicati ons:Post-nasal drip Administer 2 Sprays into each nostril in the morning. 9.9 mL 3 4 Active Additional Information Patient taking differently:2 [place] Each Nostril Daily(AM),Indications: as needed, Reported on 06/02/2023 Assure ID Duo Pro Pen [place] 31G X 5 MM (Insulin Pen Needle) Use pen needles for insulin injection three times daily E11.9 300 Each 3 4 Active Gabapentin 300 MG Oral Capsule (Neurontin) Take 1 Capsule by mouth at bedtime. Active Sodium Zirconium Cyclosilicate 10 GM Oral [...] morning and 1 Tablet before bedtime. Active [place]-3 Fatty Acids 1000 MG Oral Capsule (OMEGA-3) [...] noon and 1 mL before bedtime. Active FreeStyle Jewel 2 SensorIndications :Type 2 diabetes mellitus with hemoglobin A1c goal of less than 7.0% (HCC) Use as directed. 1 Each 2 4 Active amLODIPine Besylate 10 MG Oral Tablet (Norvasc)Indicati ons:HTN, goal below 130/80 Take 1 Tablet by mouth daily. 4 Active Torsemide 100 MG Oral Tablet (Demadex) Take 1 Tablet by mouth in the morning. Active hydrALAZINE HCl 100 MG Oral Tablet 4 Active Losartan Potassium 50 MG Oral Tablet (Cozaar) 1 Tablet. 4 Active Sodium Zirconium Cyclosilicate 10 GM Oral Packet (Lokelma) Take 1 Packet by mouth. Active Omeprazole 40 MG Oral Capsule Delayed Release (PriLOSEC) Take 1 Capsule by mouth in the morning. Active Rosuvastatin Calcium 10 MG Oral Tablet (Crestor) Take 1 Tablet by mouth in the morning. Active Cetirizine HCl 10 MG Oral Tablet (ZyrTEC) Take 1 Tablet by mouth in the morning. Active traMADol HCl 50 MG Oral Tablet (Ultram) Take 1 Tablet by mouth every 6 hours as needed (pain). 4 Active Ondansetron HCl 4 MG Oral TabletIndications :Nausea Take 1 Tablet by mouth every 8 hours as needed for Nausea. 20 Tablet 4 Active HumaLOG KwikPen 100 UNIT/ML Subcutaneous Solution Pen-injectorIndic ations:Type 2 diabetes mellitus with hemoglobin A1c goal of less than 7.0% ([facility]) Give 5 units sub-cutaneous before breakfast, lunch or dinner if blood sugar is >200. Call MD for blood sugar <70 or >300. 15 mL 3 4 Active FLUoxetine HCl 40 MG Oral Capsule (PROzac) Take 1 Capsule by mouth in the morning. 30 Capsule 2 4 024 Discontinued(Re fill) Insulin Glargine 100 UNIT/ML Subcutaneous Solution (Lantus) Inject under the skin daily. 10 units 024 Discontinued Funmi Fleming 300 UNIT/ML Subcutaneous Solution Pen-injector (Insulin Glargine (1 Unit Dial)) Inject 10 Units under the skin daily. 024 Discontinued documented as of this encounter (statuses as of 11/01/2023) Active Problems Problem Noted Date Diagnosed Date [...] as of this encounter (statuses as of 11/01/2023) Resolved Problems Problem Noted Date Diagnosed Date Resolved Date Stage 3b chronic kidney disease (CKD) 02/09/2022 05/20/2022 Diabetic retinopathy associa nasra with type 2 diabetes mellitus 02/09/2022 05/20/2022 documented as of this encounter (statuses as of 11/01/2023) Immunizations Name Administration Dates Next Due COVID-19 mRNA, LNP-s, No Pre serve, 2-Dose Series (TrendMD) 02/01/2021,07/09/2020,06/16/2020 COVID-19, LNP-s, No Preserve , Perfecto-sucrose, Ages 12+ (Pfizer) 07/05/2023,11/01/2021 Covid-19, Mrna, Lnp-s, Pf, B ivalent, 30 Mcg, IM, 12 yrs and above (TrendMD) 10/06/2022,01/06/2022 HEP A - Hepatitis A (Adult [...] Answer Date Recorded PHQ Adult Total Score 23 10/18/2023 Hunger Vital Sign Answer Date Recorded Within the past 12 months, y ou worried that your food would run out before you got the money to buy more. Never true 10/18/19 24 Within the past 12 months, t he food you bought just didn't last and you didn't have money to get more. Never true 10/18/2023 Childcare Answer Date Recorded Do you feel overwhelmed with taking care of a child, family member or friend? No 10/18/2023 Does your family need help f inding childcare? (Household - for ages 0-17 years) Not on file 10/18/2023 Clothing Answer Date Recorded Have you been unable to get clothing when it was really needed? No 10/18/2023 Is your family able to get c lothes or diapers when needed? (Household - for ages 0-17 years) Not on file 10/18/2023 Personal Safety Answer Date Recorded Do you feel unsafe or have concerns for your saf ety? No 10/18/2023 Do you have concerns for you r family's safety? (Household - for ages 0-17 years) Not on file 10/18/2023 Utilities Answer Date Recorded Do you have trouble paying y our heating, water, or electric bill? No 10/18/2023 Is your family able to pay t he heat, water, or electric bill? (Household - for ages 0-17 years) Not on file 10/18/2023 Does your family have access to good internet? (Household - for ages 0-17 years) Not on file 10/18/2023 Employment Status Answer Date Recorded Are you unemployed or without regular income? No 10/18/2023 Does the household have a re lar source of income? (Household - for ages 0-17 years) Not on file 10/18/2023 Social Connections Answer Date Recorded How often do you feel lonely or isolated from th ose around you? Always 10/18/2023 Financial Resource Strain Answer Date R ecorded Do you have any trouble payi ng for your medications, or do you think you might in the future? No 10/18/2023 Does your family have troubl e paying for medicine? (Household - for ages 0-17 years) Not on file 10/18/2023 Transportation Needs Answer Date Record ed READ ONLY Do you have troubl e getting a ride to medical visits or work? Never True 10/18/2023 Does your family have a hard time getting a ride to doctors visits? (Household - for ages 0-17 years) Not on file 10/18/2023 Has lack of transportation k ept you from medical appointments, meetings, work, or from getting things needed for daily living? Check all that apply. No 10/18/2023 Do you (or your family) have trouble finding or paying for a ride (transportation)? (Household - for ages 0-17 years) Not on file 10/18/2023 Housing Stability Answer Date Recorded Do you currently live in a s helter or have no steady place to sleep at night? No 10/18/2023 READ ONLY Do you think you a re at risk of becoming homeless? No 10/18/2023 Does your family worry about paying for your home or becoming homeless? (Household - for ages 0-17 years) Not on file 0 10/18/2023 Are you homeless or worried that you might be in the future? No 10/18/2023 Are you (or your family) lilian eless or worried that you might be in the future? (Household - for ages 0-17 years) Not on file Food Insecurity Answer Date Recorded Do you need food for this week? No 10/18/2023 Are you able to get enough f ood for your family? (Household - for ages 0-17 years) Not on file 10/18/2023 Does your family need food t his week? (Household - for ages 0-17 years) Not on file 10/18/2023 Do you always have enough fo od for your family? (Household - for ages 0-17 years) Not on file 10/18/2023 Sex and Gender Information Value Date Recorded Sex Assigned at Not on file Gender Identity Not on file Sexual Orientation Not on file Job Start Date Occupation Industry Not on file Not on file Not on file documented as of this encounter Miscellaneous Notes * Telephone Encounter - Eliezer Noonan LPN - 11/01/2023 1:29 PM EDT Spoke with daughter Josselyn Pt is having out patient procedure Will let them know labs are being drawn * Telephone Encounter - Miguelina Greene OSA - 11/01/2023 1:18 PM EDT Received call from pt's daughter Josselyn, she said that she was returning call to [place] and she said Icould teams message [place] to let her know I team messaged Eliezer and she said she will call Josselyn right back. Phone number is [phone]. Thank You, Rena * Telephone Encounter - Eliezer Noonan LPN - 11/01/2023 1:13 PM EDT LMM advising daughter this has been sent Requested daughter return call as it looks like pt has planned hospital admission on 11/08/23 * Addendum Note - Eliezer Noonan LPN - 11/01/2023 1:10 PM EDTAddended by: ELIEZER NOONAN on: 11/01/2023 01:10 PM Modules accepted: Orders * Telephone Encounter - Eliezer Noonan LPN - 11/01/2023 12:[address] Tovar Please order CMP CBC with diff and Fe labs to include TIBC Orders placed will be faxed to [facility] with confirmation received * Telephone Encounter - Vianca Penny OSA - 10/31/2023 12:07 PM EDT Patients daughter Josselyn called in asking to have the repeat order sent to [facility]. Thank you! * Telephone Encounter - Eliezer Noonan LPN - 10/24/2023 3:20 PM EDT Daughter is made aware Orders are faxed to [facility] with Medication changes and lab orders * Telephone Encounter - Eliezer Noonan LPN - 10/24/2023 3:12 PM EDT ----- Message from Juan Tovar MD sent at 10/24/2023 11:21 AM EDT ----- K is very low. Confirm he stopped torsemide and veltassa. Do 80 meq kcl today and then 20 bid. She is eating very little so having problem with Low K. Also suggest food /drinks high in K. Repeat renal panel on . documented in this encounter Plan of Treatment Upcoming Encounters Date Type Department Care Team (Latest Contact Info) Description 11/08/2023 1:20 PM EDT Hospital Encounter [facility], Operating Room [facility] [address] [place] [address] Edgar Forde, [address] [place] [address] 11/08/2023 1:20 PM EDT - 11/08/2023 1:45 PM EDT Surgery OR [facility], Operating Room [facility] [address] [place] [address] Edgar Forde DO [address] [place] [address] INJECTION SPINE LUMBAR OR SACRAL 11/16/2023 2:00 PM EDT Office Visit Pharmacy, [facility] [address] [place] [address] [facility] [address] [place] [address] 12/28/2023 3:20 PM EDT Office Visit Family Practice [facility] [address] [place] [address] Ghada Salazar MD [address] [place] [address] 12/29/2023 2:00 PM EDT Telemedicine Psychiatry, [facility] [address] [place] [address] Filemon Medina CRNP [address] [place] [address] 02/13/2024 10:40 AM EDT Office Visit [facility] Disorders Ctr [facility] [address] [place] [phone] Sofia Romo DO [address] [place] [address] Scheduled Orders Name Type Priority Associated Diagnoses Orde r Schedule RENAL FUNCTION PANEL Lab Routine CKD (chronic kidney disease) stage 4, GFR 15-29 ml/min (HCC) Hypokalemia Expected: 10/24/2023 (Approximate), Expires: 10/23/2024 BASIC METABOLIC PANEL Lab Routine CKD (chronic kidney disease) stage 4, GFR 15-29 ml/min (HCC) Hypokalemia Expected: 11/01/2023 (Approximate), Expires: 10/31/2024 CBC WITH WBC DIFFERENTIAL Lab Routine CKD (chronic kidney disease) stage 4, GFR 15-29 ml/min (HCC) Hypokalemia Expected: 11/01/2023 (Approximate), Expires: 10/31/2024 IRON SCREEN, INCLUDING TIBC Lab Routine CKD (chronic kidney disease) stage 4, GFR 15-29 ml/min (HCC) Hypokalemia Expected: 11/01/2023 (Approximate), Expires: 10/31/2024 Scheduled Procedures Name Priority Associated Diagnoses Date/Ti me INJECTION SPINE LUMBAR OR SACRAL Degeneration of lumbar intervertebral disc 11/08/2023 1:20 PM EDT Health Maintenance Due Date Last Done Comments Cologuard 1994 Colonoscopy 1994 Colorectal Cancer Screening 1994 Fecal Occult Blood Test 1994 Sigmoidoscopy 1994 Diabetic Foot Exam 05/20/2023 05/20/2022 COVID-19 Vaccine ( season) 2023 07/05/2023, 07/05/2023, 01/25/2023, Additional history exists HbA1c 12/13/2023 06/14/2023, 060 09/2022, 05/20/2022, Additional history exists Influenza Vaccine (FLU shot) (#1) 2023 01/25/2023, 12/17/2021, 12/17/2021, Additional history exists Mammogram 03/29/2024 03/29/2023, 05/2021, 03/18/2022, Additional history exists GFR 04/24/2024 10/23/2023, 09/16, 10/10/2023, Additional history exists Albumin/Creatinine Ratio 09/05/2024 09/06/2023, 11/0 07/2021 Depression Monitoring 10/17/2024 10/18/2023 Nephrology Referral 10/19/2024 10/20/2023 Diabetic Eye Exam 10/22/2024 10/23/2023, , 03/22/2023, Additional history exists Hgb 10/22/2024 10/23/2023, 09/16, 10/10/2023, Additional history exists PTH 10/22/2024 10/23/2023, 09/16, 09/22/2022, Additional history exists Phosphate 10/22/2024 10/23/2023, 09/16, 12/29/2022, Additional history exists Lipid Panel 06/14/2028 06/14/2023, 0 06/2022, 01/25/2021 DTaP,Tdap,and Td Vaccines (3 - Td or Tdap) 12/30/2029 12/31/2019, 01/14/2009 DXA Scan 03/19/2031 03/19/2021, 03/19/2021 Zoster Vaccines Completed 06/07/2018, 03/30/2018 Pneumococcal Vaccine: 65+ Years Completed 01/25/2021, 01/30/2017, 06/14/2006, Additional history exists HPV (Gardasil) Vaccine Aged Out No lo nger eligible based on patient's age to complete this topic Hepatitis B Vaccine Aged Out No longe r eligible based on patient's age to complete this topic MENINGOCOCCAL (MENACTRA/MENVEO) Aged Out No longer eligible based on patient's age to complete this topic documented as of this encounter Medical Devices Implanted Type Area Planer Operator / Grader Device Identifier Shelf Expiration Date Model / Serial / Lot Mometasone Furoate Implant Min - [id number] Implanted:Qty: 1 on 07/18/2023 by Pat Umaña MD at OR [facility] Right: Nose [employer] Pegg'dCICloudbot MACK 05/03/2024 [id number] / / [id number] documented as of this encounter Visit Diagnoses Diagnosis CKD (chronic kidney disease) stage 4, GFR 15-29 ml/min (HCC)- Primary Chronic kidney disease, Stage IV (severe) Hypokalemia Hypopotassemia Degeneration of lumbar intervertebral disc Degeneration of lumbar or lumbosacral intervertebral disc documented in this encounter Advance Directives Documents on File Type Date Recorded Patient Foundry Metallurgist Expl anation Power of Ceramic Painter 10/06/2023 signed on 11/28/2022 Care Teams Tool Crib Attendant Relationship Specialty Start Date End Date Ghada Salazar MD [address] [facility] [place] [address] PCP - General Internal Medicine 04/04/22 documented as of this encounter
--- OUTSIDE RECORDS SUMMARY | 2023-11-02 09:46 | External Medical Summary | Summary of Care ---
Author Name Unknown Organization [facility] Address [address] [place] [address] Phone [phone] Care Team Providers Care Design/Animation Instructor Name Role Phone Ghada Salazar MD Primary Care Provider Reason for Visit * Reason Onset Date Comments Test Results 10/24/2023 Encounter Details Date Type Department Care Team (Late st Contact Info) Description 10/24/2023 Telephone NephrologyAlber [address] [place] [address] Juan Tovar MD [address] [place] [address] Test Results Allergies No known active allergiesdocumented as of this encounter (statuses as of 11/01/2023) Medications Medication Sig Dispensed Refills Start Date End Date Status Aspirin EC 81 MG Oral Tablet Delayed ReleaseIndication s:Type 2 diabetes mellitus with hemoglobin A1c goal of less than 7.0% ([facility]) Take 1 Tablet by mouth in [...] 4 Active Additional Information Patient taking differently:2 [place] Each Nostril Daily(AM),Indications: as needed, Reported on 06/02/2023 Assure ID Duo Pro Pen [place] 31G X 5 MM (Insulin Pen Needle) [...] morning and 1 Tablet before bedtime. Active [place]-3 Fatty Acids 1000 MG Oral Capsule (OMEGA-3) [...] A1c goal of less than 7.0% ([facility]) Give 5 units sub-cutaneous before breakfast, lunch [...] mRNA, LNP-s, No Pre serve, 2-Dose Series ([facility]) 02/01/2021,07/09/2020,06/16/2020 COVID-19, LNP-s, No Preserve , Perfecto-sucrose, Ages 12+ (Pfizer) 07/05/2023,11/01/2021 Covid-19, Mrna, Lnp-s, Pf, B ivalent, 30 Mcg, IM, 12 yrs and above ([employer] [facility]) 10/06/2022,01/06/2022 HEP A - Hepatitis A (Adult [...] as of this encounter Miscellaneous Notes * Addendum Note - Eliezer Noonan LPN - 11/01/2023 1:10 PM EDTAddended by: ELIEZER NOONAN on: 11/01/2023 01:10 PM Modules accepted: Orders * Telephone Encounter - Eliezer Noonan LPN - 11/01/2023 12:[address] Tovar Please order CMP CBC with diff and Fe labs to include TIBC Orders placed will be faxed to [facility] with confirmation received * Telephone Encounter - Vianca Penny OSA - 10/31/2023 12:07 PM EDT Patients daughter Josselyn called in asking to have the repeat order sent to [facility]. Thank you! * Telephone Encounter - Eliezer Noonan LPN - 10/24/2023 3:20 PM EDT Daughter is made aware Orders are faxed to [facility] with Medication changes and lab orders * [...] EDT Hospital Encounter OR [facility], Operating Room [facility] [address] [place] [phone] Edgar Forde DO [address] [place] [phone] 11/08/2023 1:20 PM EDT - 11/08/2023 1:45 PM EDT Surgery OR [facility], Operating Room [facility] [address] [place] [phone] Edgar Forde, DO [address] [place] [phone] INJECTION SPINE LUMBAR OR SACRAL 11/16/2023 2:00 PM EDT Office Visit Pharmacy, [facility] [address] [place] [address] [facility] [address] [place] [address] 12/28/2023 3:20 PM EDT Office Visit Family Practice [facility] [address] [place] [address] Ghada Salazar MD [address] [place] [address] 12/29/2023 2:00 PM EDT Telemedicine Psychiatry, [facility] [address] [place] [address] Filemon Medina CRNP [address] [place] [address] 02/13/2024 10:40 AM EDT Office Visit Sleep Disorders Ctr [facility] [address] [phone] Sofia Romo DO [address] [place] [address] Scheduled Orders Name Type Priority Associated Diagnoses Orde r Schedule RENAL FUNCTION PANEL Lab Routine CKD (chronic kidney disease) stage 4, GFR 15-29 ml/min ([facility]) Hypokalemia Expected: 10/24/2023 (Approximate), Expires: 10/23/2024 BASIC [...] 12/17/2021, Additional history exists Mammogram 03/29/2024 03/29/2023, 1205/2021, 03/18/2022, Additional history exists GFR 04/24/2024 10/23/2023, [...] this encounter Medical Devices Implanted Type Area Helper Metal Hanging Device Identifier Shelf Expiration Date Model / Serial / Lot Mometasone Furoate Implant Min - [id number] Implanted:Qty: 1 on 07/18/2023 by Pat Umaañ MD at OR [facility] Right: [employer] [place] 05/03/2024 [id number] / [id number] documented as of this encounter Visit Diagnoses Diagnosis CKD (chronic kidney disease) stage 4, GFR 15-29 ml/min ([facility])- Primary Chronic kidney disease, Stage IV (severe) Hypokalemia Hypopotassemia Degeneration of lumbar intervertebral disc Degeneration of lumbar or lumbosacral intervertebral disc documented in this encounter Advance Directives Documents on File Type Date 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
--- OUTSIDE RECORDS SUMMARY | 2023-11-02 09:46 | External Medical Summary | Summary of Care ---
Author Name Unknown Organization [facility] Address [address] [place] [address] Phone [phone] Care Team Providers Care Sheet Metal Duct Installer Name Role Phone Ghada Salazar MD Primary Care Provider Reason for Visit * Reason Onset Date Comments Test Results 10/24/2023 Encounter Details Date Type Department Care Team (Late st Contact Info) Description 10/24/2023 Telephone NephrologyAlber 200 [facility] [place] [address] Juan Tovar MD [address] [place] [address] Test Results Allergies No known active allergiesdocumented [...] 4 Active Additional Information Patient taking differently:2 [place] Each Nostril Daily(AM),Indications: as needed, Reported on 06/02/2023 Assure ID Duo Pro Pen [place] 31G X 5 MM (Insulin Pen Needle) [...] morning and 1 Tablet before bedtime. Active [place]-3 Fatty Acids 1000 MG Oral Capsule (OMEGA-3) [...] less than 7.0% ([facility]) Give 5 units sub-cutaneous before breakfast, [...] mRNA, LNP-s, No Pre serve, 2-Dose Series ([place]) 02/01/2021,07/09/2020,06/16/2020 COVID-19, LNP-s, No Preserve , Perfecto-sucrose, Ages 12+ (Pfizer) 07/05/2023,11/01/2021 Covid-19, Mrna, Lnp-s, Pf, B ivalent, 30 Mcg, IM, 12 yrs and above ([place]) 10/06/2022,01/06/2022 HEP A - Hepatitis A (Adult [...] TIBC Orders placed will be faxed to [facility] with confirmation received * Telephone Encounter - Vianca Penny OSA - 10/31/2023 12:07 PM EDT Patients daughter Josselyn called in asking to have the repeat order sent to [facility]. Thank you! * Telephone Encounter - Eliezer Noonan LPN - 10/24/2023 3:20 PM EDT Daughter is made aware Orders are faxed to [facility] with Medication changes and lab orders * [...] OR [facility], Operating Room [facility] [address] [place] [phone] Edgar Forde, DO [address] [place] [phone] 11/08/2023 1:20 PM EDT - 11/08/2023 1:45 PM EDT Surgery OR [facility], Operating Room [facility] [address] [place] [phone] Edgar Forde, DO [address] [place] [phone] INJECTION SPINE LUMBAR OR SACRAL 11/16/2023 2:00 PM EDT Office Visit Pharmacy, [facility] [address] [place] [address] [facility] [address] [place] [address] 12/28/2023 3:20 PM EDT Office Visit Family Practice [facility] [address] [place] [address] Ghada Salazar MD [address] [place] [address] 12/29/2023 2:00 PM EDT Telemedicine Psychiatry, [facility] [address] [place] [address] Filemon Medina CRNP [address] [place] [address] 02/13/2024 10:40 AM EDT Office Visit Sleep Disorders Ctr [facility] [address] [place] [phone] Sofia Romo, DO [address] [place] [address] Scheduled Orders Name Type Priority Associated Diagnoses [...] 01/25/2023, Additional history exists HbA1c 12/13/2023 06/14/2023, 09/2022, [...] this encounter Medical Devices Implanted Type Area Scoop Filler Device Identifier Shelf Expiration Date Model / Serial / Lot Mometasone Furoate Implant Min - [id number] Implanted:Qty: 1 on 07/18/2023 by Pat Umaña MD at OR [facility] Right: [employer] 05/03/2024 [id number] / / [id number] documented as of this encounter Visit Diagnoses Diagnosis CKD (chronic kidney disease) stage 4, GFR 15-29 ml/min ([facility])- Primary Chronic kidney disease, Stage IV (severe) Hypokalemia Hypopotassemia Degeneration of lumbar intervertebral disc Degeneration of lumbar or lumbosacral intervertebral disc documented in this encounter Advance Directives Documents on File Type Date Recorded 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
--- OUTSIDE RECORDS SUMMARY | 2023-11-02 09:46 | External Medical Summary | Summary of Care ---
Author Name Unknown Organization [facility] Address [address] [place] [address] Phone [phone] Care Team Providers Care House Player Name Role Phone Ghada Salazar MD Primary Care Provider Reason for Visit * Reason Onset Date Comments Test Results 10/24/2023 Encounter Details Date Type Department Care Team (Late st Contact Info) Description 10/24/2023 Telephone NephrologyAlber 200 [facility] [place] [address] Juan Tovar MD [address] [place] [address] Test Results Allergies No known active allergiesdocumented as of this encounter (statuses as of 11/01/2023) Medications Medication Sig Dispensed Refills Start Date End Date Status Aspirin EC 81 MG Oral Tablet Delayed ReleaseIndication s:Type 2 diabetes mellitus with hemoglobin A1c goal of less than 7.0% ([facility]) Take 1 Tablet by [...] 4 Active Additional Information Patient taking differently:2 [place] Each Nostril Daily(AM),Indications: as needed, Reported on 06/02/2023 Assure ID Duo Pro Pen [place] 31G X 5 MM (Insulin Pen Needle) [...] morning and 1 Tablet before bedtime. Active [place]-3 Fatty Acids 1000 MG Oral Capsule (OMEGA-3) [...] A1c goal of less than 7.0% ([facility]) Give 5 units sub-cutaneous before breakfast, lunch [...] mRNA, LNP-s, No Pre serve, 2-Dose Series ([employer]) 02/01/2021,07/09/2020,06/16/2020 COVID-19, LNP-s, No Preserve , Perfecto-sucrose, Ages 12+ (Pfizer) 07/05/2023,11/01/2021 Covid-19, Mrna, Lnp-s, Pf, B ivalent, 30 Mcg, IM, 12 yrs and above ([employer]) 10/06/2022,01/06/2022 HEP A - Hepatitis A (Adult [...] encounter Miscellaneous Notes * Telephone Encounter - Miguelina Greene, LINDSEY - 11/01/2023 1:18 PM EDT Received call from pt's daughter Josselyn, she said that she was returning call to Eliezer and she said [facility] teams message Eliezer to let her know I team messaged Eliezer and she said she will call Josselyn right back. Phone number is [phone]. Thank You, Rena * Telephone Encounter - [...] TIBC Orders placed will be faxed to [facility] with confirmation received * Telephone Encounter - Vianca Penny OSA - 10/31/2023 12:07 PM EDT Patients daughter Josselyn called in asking to have the repeat order sent to [facility]. Thank you! * Telephone Encounter - Eliezer Noonan LPN - 10/24/2023 3:20 PM EDT Daughter is made aware Orders are faxed to [facility] with Medication changes and lab orders * Telephone Encounter - Eliezer Noonan LPN - 10/24/2023 3:12 PM EDT ----- Message from Juan Toavr MD sent at 10/24/2023 11:21 AM EDT [...] Operating Room [facility] [address] [place] [phone] Edgar Forde, [address] [place] [address] 11/08/2023 1:20 PM EDT - 11/08/2023 1:45 PM EDT Surgery OR [facility], Operating Room [facility] [address] [place] [phone] Edgar Forde, [address] [place] [address] INJECTION SPINE LUMBAR OR SACRAL 11/16/2023 2:00 PM EDT Office Visit Pharmacy, [facility] [address] [place] [address] [facility] [address] [place] [address] 12/28/2023 3:20 PM EDT Office Visit Family Practice [facility] [address] [place] [address] Ghada Salazar MD [address] [place] [address] 12/29/2023 2:00 PM EDT Telemedicine Psychiatry, [address] [place] [address] Filemon Medina CRNP [address] [place] [address] 02/13/2024 10:40 AM EDT [facility] [address] [place] [phone] Sofia Romo DO [address] [place] [address] Scheduled Orders Name Type Priority Associated Diagnoses [...] 01/25/2023, Additional history exists HbA1c 12/13/2023 06/14/2023, 0 09/2022, 05/20/2022, Additional history exists Influenza Vaccine (FLU shot) (#1) 2023 01/25/2023, 12/17/2021, 12/17/2021, Additional history exists Mammogram 03/29/2024 03/29/2023, 05/2021, 03/18/2022, Additional history exists GFR 04/24/2024 10/23/2023, 09/16, 10/10/2023, Additional history exists Albumin/Creatinine Ratio 09/05/2024 09/06/2023, 07/2021 Depression Monitoring 10/17/2024 10/18/2023 Nephrology Referral [...] this encounter Medical Devices Implanted Type Area Medical Surgical Tech Device Identifier Shelf Expiration Date Model / Serial / Lot Mometasone Furoate Implant Min - [id number] Implanted:Qty: 1 on 07/18/2023 by Pat Umaña MD at OR [facility] Right: Nose [employer] 05/03/2024 [id number] / / [id number] documented as of this encounter Visit Diagnoses Diagnosis CKD (chronic kidney disease) stage 4, GFR 15-29 ml/min ([facility])- Primary Chronic kidney disease, Stage IV (severe) Hypokalemia Hypopotassemia Degeneration of lumbar intervertebral disc Degeneration of lumbar or lumbosacral intervertebral disc documented in this encounter Advance Directives Documents on File Type Date Recorded 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
[2023-11-02] MEDS: LIDOCAINE 1% LOCAL 20 ML VIAL INFIL ONE (10:10)
[2023-11-02] MEDS: LIDOCAINE 1% LOCAL 20 ML VIAL ONE (10:10)
--- NOTE | 2023-11-02 10:41 | Procedure Note ---
Procedure Note Date of Service November 02, 2023 Note PIGTAIL CATHETER PLACEMENT NOTE: Procedure: Pigtail Catheter Chest Tube Placement Indication: Loculated left pleural effusion Anesthesia: 10 mL lidocaine 1% Written consent was obtained and placed on the chart. Timeout was done prior to the procedure. Prior to procedure, chest x-ray films were reviewed by myself and demonstrated large loculated left effusion. A time-out was completed verifying correct patient, procedure, site, positioning, and implant(s) or special equipment if applicable. Utilizing bedside ultrasound, chest wall was evaluated for location for optimal chest tube placement. Location between the 6th and seventh ribs were marked on the skin using gentle pressure. The left sided chest wall was prepped with chlorhexidine and draped in the typical sterile fashion. 10 mL of 1% Lidocaine without epinephrine was used to anesthetize the skin down to the dorsal surface of the sixth rib. Fluid return confirmed entry into the pleural space. Lidocaine was injected into the pleural space for increased anesthetiza tion. Introducer needle on syringe was inserted in perpendicular fashion taking care to ride just above the dorsal surface of the 6 rib. Entry into the pleural space was heralded by fluid return into the syringe while under gentle aspiration. Guide wire was advanced into the pleural space without resistance and the introducer needle was subsequently removed. Scalpel was used to make small incision of the superficial tissue, parallel to the direction of the rib anatomy. Dilator was advanced uneventfully over the guide wire into the pleural space. 14 [place] Pigtail Catheter was inserted into the pleural space. Inner introducer and guide wire were removed. Drain was immediately connected to pre- prepared SHARI pleur-evac system. Pigtail was sutured securely in place and sterile dressing was applied. Chest tube was placed to -20 cmH2O suction. Patient tolerated procedure well. Blood Loss: Minimal Complications: None Postprocedure chest x-ray is pending. Fluid studies will be sent for cultures, cytology and cell counts. Coding CPT Codes Pulmonary/Thoracic - Pulmonary and Thoracic: 97239 Tube thoracostomy ([id number]) Pulmonary/Thoracic - Pulmonary and Thoracic: 39742 US, Chest, real time with imaging documentation ([id number]) [facility] [place] Procedure Codes (Charges) Pulmonary/Thoracic Procedure 1: Pulmonary and Thoracic: 88162 Tube thoracostomy Procedure 2: Pulmonary and Thoracic: 95156 US, Chest, real time with imaging documentation
[2023-11-02] MEDS: ACETAMINOPHEN 325 MG TAB PO PRN (10:49)
--- NOTE | 2023-11-02 11:33 | XRay Report ---
SINGLE VIEW CHEST CLINICAL HISTORY: Pleural drain placement. FINDINGS: An AP, portable, upright chest radiograph is compared to chest x-ray and chest CT dated 10/15. The cardiomediastinal silhouette is top normal for projection noting atherosclerotic calcific ation of the thoracic aorta. A pleural drain tube has been placed at the left lung base. A left pleur al effusion has decreased in size from previous. There is dense airspace consolidation in the left lo wer lung. Trace pleural fluid is seen on the right. No pneumothorax is seen. The skeletal structures are osteopenic. The bony thorax is grossly intact. IMPRESSION: 1. A left-sided pleural drain has been placed as above. No pneumothorax is seen post procedure. 2. A left pleural effusion as decreased in size from previous. 3. Dense airspace consolidation is again noted at the left lung base. ACT 112: Negative or not required by law. Electronically signed by: Jordi Garcia M.D. 11/02/2023 11:31 AM
[2023-11-02 11:42] LABS: Amylase Pleural Fluid < 10 U/L
[2023-11-02 11:47] LABS: Glucose Pleural Fluid 131 mg/dl; LDH Pleural Fluid 61 U/L; Total Protein Pleural Fluid < 3.0 gm/dl
--- NOTE | 2023-11-02 12:03 | Nephrology Consultation ---
Date of Consultation November 02, 2023 Assessment & Plan (1) Hypertensive urgency: SBP 170-180s in setting of volume overload, advanced CKD. target SBP 130-140s over DAYS -continue amlodipine, hydralazine current doses; was on torsemide as OP; some of HTN issues may be >add lasix IV 80 mg 0600, midday, 1800 w/ 2 doses for today 1500 and 1900 -daily bmp High risk for complications of uncontrolled HTN, fluid overload, electrolyte issues in setting of acute illness w/ ESRD/CKD4 (2) CKD (chronic kidney disease) stage 4, GFR 15-29 ml/min: advanced CKD 4 /early CKD 5 > pt w/ sx ? uremic >> N, anorexia, confusion -30 min talk w/ pt and daughter re uremic sx, ESRD treatment options, HD access >>will refer for ESRD options to be done CHRISTOPHER; cannot r/o start this admission (3) Hyperkalemia: improving w/ IV K and dose of lokelma; has had mutliple med changes past few weeks > ? if miscommunication on meds or f/u labs which were missing -will resume aggressive diuresis -daily bmp -no need for now for low K diet >> order cancelled History of Present Illness Reason for Consultation: hyperkalemia Requesting Physician: Dr Chatterjee Attending Physician: David Sutton MD History of Present Illness 73 y/o F facility resident whom I'm asked to see for hyperkalemia was admitted last evening for hypoxia and exertional dyspnea; K on presentation 5.4 and peaked last evening 5.7. PMH includes poorly controlled DM w/ triopathy, ckd4, HTN, depression which can be severe, class 3 obesity, HL, nystagmus, vertigo. Moved here 2021 from [facility] where she'd lived all her life to be closer to her daughter who is very involved in the patient's care. [facility]. Multiple hospital encounters since her arrival to this area > admitted 09/08- 09/14 for KAVITA on CKD4, HTN urgency, community acquired PNA; admitted 09/19 - 09/24 from rehab for AMS, concern for uremia; also seen in ER / for hypoglycemia >> at that encounter, creatinine improved at 2.6 (had been in 3's) and K low at 2.6. Seen by Dr Tovar in CKD clinic 10/19 and lokelma and torsemide stopped given 10/16 K >> w/ recheck bmp on 10/22 showing K 2.8. Plan at that time was to confirm she had stopped diuretic and K binder, give one time 80 mEq po K dose, then start 20 mEq bid K w/ recheck lab for 10/25. No record of 10/25 labs found in [facility]. Found on admission to have BL pleural effusions L >>R w/ possible L pneumonia and needed 4L 02NC to maintain her sats. She was started on cefepime and doxycycline. pulmonary evaluated the pt, noted a loculated L pleural effusion and this am placed a chest tube/pigtail catheter. Pt had several weeks of worsening dyspnea and cough which acutely worsened in the past 1-2 days before admission. appetite poor recently. +dry mouth and N w/ food. ongoing marked fatigue, generalized weakness. no chest pain or palpitations; some occasional bandlike chest heaviness; some LE and BUE edema. no orthostatic or presyncopal sx, no n/v/d/abd pain; no new/worrisome voiding sx; no rash. Daughter Josselyn at bedside Allergies Allergy/AdvReac Type Severity Reaction Status Date / Time No Known Allergies Allergy Verified 11/01/23 19:45 Home Medications Medication Instructions Recorded Confirmed Type aspirin 81 mg tablet,delayed 81 mg PO QAM 03/13/19 11/01/23 History release cyanocobalamin (vitamin B-12) 500 500 mcg PO QAM 03/13/19 11/01/23 History mcg tablet (Vitamin B-12) acetaminophen 325 mg tablet 325 mg PO Q6H PRN Pain 09/09/23 11/01/23 History (Tylenol) cholecalciferol (vitamin D3) 125 125 mcg PO QAM 09/09/23 11/01/23 History mcg (5,000 unit) tablet (Vitamin D3) fluoxetine 40 mg capsule 40 mg PO QAM 09/09/23 11/01/23 History fluticasone propionate 50 2 spray intranasal QAM 09/09/23 11/01/23 History mcg/actuation nasal spray,suspension omega-3 fatty acids 1,000 mg 1,000 mg PO QAM 09/09/23 11/01/23 History capsule rosuvastatin 10 mg tablet 10 mg PO HS 09/09/23 11/01/23 History guaifenesin 600 mg tablet, 600 mg PO Q12 #10 tabs 09/15/23 11/01/23 Rx extended release 12 hr (Mucinex) losartan 50 mg tablet 50 mg PO QAM #30 tabs 09/25/23 11/01/23 Rx amlodipine 10 mg tablet 10 mg PO HS 10/17/23 11/01/23 History cetirizine 10 mg tablet 10 mg PO QAM 10/17/23 11/01/23 History docusate sodium 100 mg capsule 100 mg PO BID 10/17/23 11/01/23 History hydralazine 100 mg tablet 100 mg PO QAM 10/17/23 11/01/23 History insulin glargine U-300 conc 300 8 unit subcut DAILY 10/17/23 11/01/23 History unit/mL (1.5 mL) subcutaneous pen (Toujeo SoloStar U-300 Insulin) magnesium hydroxide 400 mg/5 mL 30 ml PO DAILY PRN Constipation 10/17/23 11/01/23 History oral suspension (Milk of Magnesia) omeprazole 40 mg capsule,delayed 40 mg PO DAILYBB 10/17/23 11/01/23 History release ondansetron HCl 4 mg tablet 4 mg PO Q8 PRN Nausea 10/17/23 11/01/23 History polyethylene glycol 3350 17 gram 17 g PO QAM PRN Constipation 10/17/23 11/01/23 History oral powder packet (SmoothLax) sennosides 8.6 mg tablet (Senokot) 8.6 mg PO BID PRN Constipation 10/17/23 11/01/23 History tramadol 50 mg tablet 50 mg PO Q6 PRN Pain (Scale Score 10/17/23 11/01/23 History 4-6) insulin lispro 100 unit/mL 5 unit subcut AC 11/01/23 11/01/23 History subcutaneous pen (Humalog KwikPen (U-100) Insulin) potassium chloride 20 mEq 20 meq PO BID 11/01/23 11/01/23 History tablet,extended release(part/cryst) Patient History Medical History (Updated 11/02/23 @ 12:39 by Taniya Weems MD, PhD) CKD (chronic kidney disease) stage 4, GFR 15-29 ml/min Type 2 diabetes mellitus Surgical History History of nasal surgery Family History Other Breast cancer No pertinent family history Social History Smoking Status: Never smoker Second Hand Exposure: No; Do You Dip or Chew Tobacco: No; Hx Alcohol Use: No Hx Substance Use: No Preferred Language: Kosovan Communication Ability: Effective [employer]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: No Beliefs That Will Affect Care: None Current Living Situation: Alone Current Living Situation Comment: [facility] Feels Safe at Home: Yes Assistive Devices: Walker Review of Systems 2 Review of Systems: All systems reviewed & are unremarkable except as noted in HPI & below Physical Exam 2 Constitutional: well developed, well nourished, + morbidly obese, + frail appearing, cooperative and + lethargic (drifts in and out of sleep in interview); no acute distress Eyes: EOM intact bilaterally ENMT: Ears: no external ear abnormality Nose: no external nose abnormality Mouth: + dry oral mucous membranes Neck: no nuchal rigidity Respiratory: normal respiratory effort (L CT) Auscultation: + diminished lung sounds Cardiovascular: Rate/Rhythm: regular rate and regular rhythm Extremities: + edema (trace); no AV fistula Gastrointestinal (Abdomen): Inspection/Auscultation: normal bowel sounds P ercussion/Palpation: abdomen soft; abdomen nontender Musculoskeletal: Extremities: strength 5/5 throughout Skin: no rashes, warm and dry Neurologic: navas, limited though appropriate speech, no tremor, quite sleepy Psychiatric: Orientation: oriented x 3; + not alert Results & Data Vital Signs (Past 12 Hours) Vital Signs Temp Pulse Pulse Resp BP Pulse Ox O2 Del Method 11/02/23 10:51 36.4 C L 79 20 155/75 H 96 Nasal Cannula 11/02/23 09:00 Nasal Cannula 11/02/23 07:59 36.9 C 83 20 177/75 H 95 Nasal Cannula 11/02/23 07:09 81 11/02/23 03:00 36.7 C 86 20 140/102 H 93 Nasal Cannula 07/18/24 00:15 178/88 H O2 Flow Rate 11/02/23 10:51 2 11/02/23 09:00 2 11/02/23 07:59 4 11/02/23 07:09 11/02/23 03:00 4 11/02/23 00:15 Laboratory Results 11/02/23 05:26 11/02/23 05:26 Diagnostic Findings TTE > EF 55% type 1 diastolic dysfunction; no wma, lvh, valve issues
[2023-11-02 12:11] LABS: Troponin I High Sensitivity 60.9 pg/ml (0-14)
--- NOTE | 2023-11-02 14:32 | Hospitalist Progress Note ---
Date of Service November 02, 2023 Assessment & Plan (1) SOB (shortness of breath): Plan: 73-year-old female with past medical history significant for type 2 diabetes, hyperlipidemia, obesity, CKD stage IV, history of recurrent major depression, vertigo, history of double vision, nystagmus, currently living at assisted living comes because of shortness of breath. Patient states shortness going on for last couple of weeks but getting progressively worsened. Patient Was Admitted in Early September with KAVITA and Metabolic Acidosis and Confusion. Confusion Thought to Be from Renal Uremia and Possible Untreated Sleep Apnea. She Was on Lokelma in the past but Because of Her Outpatient Labs Showed Hypokalemia Lokelma Was Stopped and Currently She is on Potassium Supplements. Acute hypoxic respiratory failure Bilateral pleural effusion (left> right) status post pigtail chest tube placement on 11/02/2023 Possible Pneumonia Patient presents with shortness of breath which is progressive increasing worse Chest x-ray on admission personally reviewed; interval development of moderate to large left pleural effusion with associated airspace opacity. CT chest shows bilateral pleural effusion(left greater than right) Continue on cefepime and doxycycline Will follow-up on workup of pleural fluid Management of chest tube as per pulmonology Demand Ischemia EKG Personally reviewed; normal sinus rhythm. High since troponin 67, 63 Echocardiogram shows EF of 55 to 60% with grade 1 diastolic dysfunction Hyperkalemia Potassium 5.7 on admission History of Hyperkalemia but Outpatient Labs Showed Hypokalemia and Currently on potassium Supplements Which Will Be Held Given a Dose of Lokelma, Insulin and Dextrose CKD Stage IV Presented Creatinine of 2.7 Which Seems to Be around Baseline Avoid nephrotoxic agents Type 2 Diabetes Will Hold Home Long Acting Insulin Lantus 4 Units Daily As Patient Is N.P.O. Currently Sliding Scale We Will Monitor Morbid Obesity Needs Counseling Sleep Apnea CPAP/Oxygen Nightly Depression on Fluoxetine Hypertension on Amlodipine/Hydralazine. Will Hold Losartan As Patient Is Currently Hyperkalemic Will Monitor Hyperlipidemia on Statin, continue GERD on Omeprazole Anemia of Chronic Disease Hemoglobin 9.4 Will Monitor DVT Prophylaxis SCDs and Heparin Subcu Disposition Telemetry CODE STATUS Full Code Time spent evaluating patient, direct bedside care, chart review, placing orders, interpretation of diagnostic studies, discussion with consultants, patient, and family members, as well as other required patient management activities is 50 minutes Please note the above document was generated using voice recognition software. It may contain grammatical, syntax or spelling errors. Any formal questions or concerns about the content, text or information contained within the body of this dictation should be directly addressed to the provider for clarification Admission and Anticipated Discharge Date Admission Date: November 01, 2023 Subjective Patient seen and examined after pigtail catheter placement She reports pain on deep breathing She denies shortness of breath Vitals are stable saturating well at 2 L of oxygen Review of Systems Review of Systems: All systems reviewed & are unremarkable except as noted in Subjective Physical Exam Physical Exam: General- Not in distress Head- atraumatic Eyes- PERRL. ENT- oropharynx clear Neck- supple, no JVD. Lungs- Decreased breath sound at left lower lung base. Pigtail catheter in place Heart- regular rate and rhythm; no murmur, no gallop. Abdomen- normal bowel sounds, soft, nontender, no distension. Extremities- no pretibial edema, no erythema seen. Neuro- alert, oriented PERRL, no facial palsy; no dysarthria; moves extremities. Results & Data Results & Data Vital Signs (Past 12 Hours) Vital Signs Temp Pulse Pulse Resp BP Pulse Ox O2 Del Method 11/02/23 10:51 36.4 C L 79 20 155/75 H 96 Nasal Cannula 11/02/23 09:00 Nasal Cannula 11/02/23 07:59 36.9 C 83 20 177/75 H 95 Nasal Cannula 11/02/23 07:09 81 11/02/23 03:00 36.7 C 86 20 140/102 H 93 Nasal Cannula O2 Flow Rate 11/02/23 10:51 2 11/02/23 09:00 2 11/02/23 07:59 4 11/02/23 07:09 11/02/23 03:00 4
[2023-11-02] MEDS ORDERED: Nursing to Pharmacy Communication SCH (14:45)
[2023-11-02] MEDS: FUROSEMIDE 40 MG/4 ML VIAL IV SCH (15:22)
--- NOTE | 2023-11-03 12:33 | Procedure Note ---
Procedure Note Date of Service November 03, 2023 Note Chest tube removal. Dressing taken down at bedside. Suture cut. Tube taken out upon exhalation and found to be in tact. Occlusive sterile dresing placed over incision site. No significant bleeding note. Patient tolerated chest tube removal well. Coding CPT Codes Pulmonary/Thoracic - Pulmonary and Thoracic: 47187 Remove lung catheter ([id number]) [facility] [place] Procedure Codes (Charges) Pulmonary/Thoracic Procedure 1: Pulmonary and Thoracic: 46349 Remove lung catheter
--- NOTE | 2023-11-03 12:36 | Pulmonology Progress Note ---
Date of Service November 03, 2023 Assessment & Plan (1) Pleural effusion: Plan: B/l effusions likely from volume overload and renal failure. Left effusion studies reveal a transudate. Cyto pending. Please follow up on this. (2) Hypoxia: Plan: Improving with diuresis and chest tube drainage. Chest tube removed today 11/02. (3) SOB (shortness of breath): Plan: See above. (4) Elevated brain natriuretic peptide (BNP) level: Plan: Volume overloaded. Defer diuresis to primary team and nephro. Plan Pulm to sign off. Thanks for the consult. Please call with questions. Admission and Anticipated Discharge Date Admission Date: November 01, 2023 Subjective 1 liter of serosanguineous drainage from chest tube. Patient breathing better. No chest pain, fevers or chills. Chest tube removed at bedside. Review of Systems Review of Systems: All systems reviewed & are unremarkable except as noted in HPI & below Physical Exam Physical Exam: VITAL SIGNS - Vital signs and nursing notes were reviewed. GENERAL - 73-year-old female appearing her stated age who is in no acute distress. Communicates well with provider and answers questions appropriately. SKIN - Without rashes or lesions. NOSE - Midline and without cyanosis. MOUTH/OROPHARYNX - Without perioral cyanosis. NECK - Neck with FROM. LUNGS - Chest wall evaluation demonstrates normal chest wall A:P diameter. Auscultation reveals diminished lung sounds on the left. No wheezes. CARDIAC - RRR with S1/S2. No murmur, rubs, or gallops appreciated. ABDOMEN - Abdominal inspection demonstrates an obese abdomen. BS normoactive all four quadrants. No tenderness, palpable masses, or ascites noted. EXTREMITIES - Nail clubbing not present. No peripheral cyanosis. No pretibial edema present. +3/5 radial palpated throughout. PSYCH - A&Ox3 and cooperates fully with examiner. Pt is very pleasant and interacts well with examiner. PG Care Time/CCT Total # of Minutes Spent Total Time Spent with Patient: Total time spent is greater than 50% in coordination of care (as documented) at patient's floor/unit and/or counseling patient: Coding Level of Care Code 31802 SUB INP/OBS CARE 2/35MIN Diagnoses Pleural effusion J90 Hypoxia R09.02 SOB (shortness of breath) R06.02 Elevated brain natriuretic peptide (BNP) level R79.89
--- NOTE | 2023-11-03 12:54 | XRay Report ---
XR chest 1V portable [facility]AMELNATANAEL M CLINICAL HISTORY: chest tube TECHNIQUE: Single frontal radiograph of the chest was obtained. Comparison: Comparison is made to chest radiograph 11/02/2023 FINDINGS: A left chest tube is seen, the tubing is unchanged in position but likely is in the posterior costoph renic angle. The cardiomediastinal silhouette is normal. Mild airspace opacity remains in the left lo wer lobe, significantly decreased from prior exam. No pneumothorax. Previously noted left pleural eff usion has significantly decreased. IMPRESSION: Interval significant reduction in size of left pleural effusion. No pneumothorax. Left chest tube has somewhat shifted in position but remains within the left hemithorax. ACT 112: Negative or not required by law. Electronically signed by: Omer Dorsey M.D. 11/03/2023 11:31 AM
--- NOTE | 2023-11-03 17:12 | Communication Note ---
Date of Service: November 03, 2023 See handwritten progress note from earlier today. Based on review of labs today will stop IV lasix and change to torsemide 80 mg daily starting 11/03 For now no K supplements but will almost certainly need them prior to d/c. Contact Nephro signal and communications maintainer this weekend/ (Dr Cortes if d/c this ) for d/c dose recs re K, torsemide; nephro to follow peripherally on weekend Pt will also need hospital d/c appt w/ me 1-2 wks after rehab d/c w/ BMP, CBC/D Recommend check bmp Q Mon/Th while at rehab to monitor K
[2023-11-03 19:53] LABS: BUN Creatinine Ratio 10.7 (10-20); Calcium 8.9 mg/dl (8.6-10.3); Creatinine Clr Calc Pharmacy 17.5 ml/min; Est GFR (Non-African American) 14.7 ml/min; Potassium 4.5 mmol/L (3.5-5.1)
[2023-11-03 20:09] LABS: Basophils # (auto) 0.04 K/uL (0.00-0.20); Basophils % (auto) 0.6 %; Eosinophils # (auto) 0.07 K/uL (0.00-0.50); Eosinophils % (auto) 1.1 %; Hematocrit (blood only) 30.7 % (37.0-47.0); Hemoglobin 10.8 g/dl (12.0-16.0); Immature Granulocytes # (auto) 0.08 K/uL (0.01-0.20); Immature Granulocytes % (auto) 1.3 %; Lymphocytes # (auto) 1.35 K/uL (1.20-3.40); Lymphocytes % (auto) 21.5 %; Mean Corpuscular Hemoglobin 33.4 pg (25.0-34.0); Mean Corpuscular Hgb Conc 35.2 g/dL (32.0-36.0); Mean Platelet Volume 9.3 fL (9.4-12.4); Monocytes # (auto) 0.78 K/uL (0.11-0.59); Monocytes % (auto) 12.4 %; Neutrophils # (auto) 3.97 K/uL (1.40-6.50); Neutrophils % (auto) 63.1 %; Platelet Count 506 K/uL (130-400); RDW Coefficient of Variation 13.8 % (11.5-14.5); RDW Standard Deviation 48.3 fL (36.4-46.3); Red Blood Count 3.23 M/uL (4.20-5.40); White Blood Count 6.29 K/ul (4.8-10.8)
[2023-11-04] MEDS: TORSEMIDE 20 MG TAB PO SCH (08:35)
--- NOTE | 2023-11-04 09:11 | XRay Report ---
XR chest 1V portable CLINICAL HISTORY: chest tube TECHNIQUE: Single frontal radiograph of the chest was obtained. Comparison: Comparison is made to chest radiograph 11/03/2023 FINDINGS: Interval removal of left chest tube. Cardiomegaly is noted. The lungs are clear. No evidence of pleur al effusion or pneumothorax. IMPRESSION: Interval removal of left chest tube with no pneumothorax. ACT 112: Negative or not required by law. Electronically signed by: Omer Dorsey M.D. 11/04/2023 9:09 AM
--- NOTE | 2023-11-04 13:10 | Hospitalist Progress Note ---
Date of Service November 04, 2023 Assessment & Plan (1) SOB (shortness of breath): Plan: 73-year-old female with past medical history significant for type 2 diabetes, hyperlipidemia, obesity, CKD stage IV, history of recurrent major depression, vertigo, history of double vision, nystagmus, currently living at assisted living comes because of shortness of breath. Patient states shortness going on for last couple of weeks but getting progressively worsened. Patient Was Admitted in Early September with KAVITA and Metabolic Acidosis and Confusion. Confusion Thought to Be from Renal Uremia and Possible Untreated Sleep Apnea. She Was on Lokelma in the past but Because of Her Outpatient Labs Showed Hypokalemia Lokelma Was Stopped and Currently She is on Potassium Supplements. Acute hypoxic respiratory failure Bilateral pleural effusion (left> right) status post pigtail chest tube placement on 11/02/2023, removed on 11/03/2023 Possible Pneumonia, ruled out Patient presents with shortness of breath which is progressive increasing worse Chest x-ray on admission personally reviewed; interval development of moderate to large left pleural effusion with associated airspace opacity. CT chest shows bilateral pleural effusion(left greater than right) Pleural fluid showed transudate pattern Gram stain negative Pleural effusion likely secondary to volume overload due to CKD. Discussed with pulmonology. Will stop antibiotics for the time being Diuresis with torsemide as per nephrology Demand Ischemia EKG Personally reviewed; normal sinus rhythm. High since troponin 67, 63 Echocardiogram shows EF of 55 to 60% with grade 1 diastolic dysfunction Hyperkalemia Potassium 5.7 on admission was on potassium supplement due to hypokalemia Monitor BMP CKD Stage IV Presented Creatinine of 2.7 Which Seems to Be around Baseline Creatinine increased to 3.0 Monitor;nephrology on board Type 2 Diabetes Will Hold Home Long Acting Insulin Lantus 4 Units Daily As Patient Is N.P.O. Currently Sliding Scale We Will Monitor Morbid Obesity Needs Counseling Sleep Apnea CPAP/Oxygen Nightly Depression on Fluoxetine Hypertension on Amlodipine/Hydralazine. Will Hold Losartan due to hyperkalemia Will Monitor Hyperlipidemia on Statin, continue GERD on Omeprazole Anemia of Chronic Disease Hemoglobin stable Will Monitor DVT Prophylaxis Heparin Subcu Disposition Telemetry; PT OT eval pending CODE STATUS Full Code Time spent evaluating patient, direct bedside care, chart review, placing orders, interpretation of diagnostic studies, discussion with consultants, patient, and family members, as well as other required patient management activities is 50 minutes Please note the above document was generated using voice recognition software. It may contain grammatical, syntax or spelling errors. Any formal questions or concerns about the content, text or information contained within the body of this dictation should be directly addressed to the provider for clarification Admission and Anticipated Discharge Date Admission Date: November 01, 2023 Subjective Patient seen and examined at bedside. She is off supplemental oxygen; appears comfortable No significant events overnight Review of Systems Review of Systems: All systems reviewed & are unremarkable except as noted in Subjective Physical Exam Physical Exam: General- Not in distress Head- atraumatic Eyes- PERRL. ENT- oropharynx clear Neck- supple, no JVD. Lungs- Decreased breath sound at bilateral lung bases Heart- regular rate and rhythm; no murmur, no gallop. Abdomen- normal bowel sounds, soft, nontender, no distension. Extremities- no pretibial edema, no erythema seen. Neuro- alert, oriented PERRL, no facial palsy; no dysarthria; moves extremities. Results & Data Results & Data Vital Signs (Past 12 Hours) Vital Signs Temp Pulse Pulse Resp BP Pulse Ox O2 Del Method 11/04/23 12:12 36.8 C 88 18 145/67 H 93 Room Air 11/04/23 08:32 82 11/04/23 08:32 Room Air 11/04/23 08:11 36.9 C 86 18 138/75 94 Room Air 11/04/23 02:59 36.8 C 82 17 129/67 91 Room Air
[2023-11-05 07:44] LABS: BUN Creatinine Ratio 10.4 (10-20); Calcium 9.1 mg/dl (8.6-10.3); Creatinine Clr Calc Pharmacy 15.4 ml/min; Est GFR (African American) 15.3 ml/min; Est GFR (Non-African American) 13.2 ml/min; Potassium 3.6 mmol/L (3.5-5.1)
--- NOTE | 2023-11-05 08:28 | XRay Report ---
XR chest 1V portable HISTORY: chest tube COMPARISON: Chest 11/04/2023. FINDINGS: No pneumothorax. A small left pleural effusion and left basilar linear densities have sligh tly progressed. The heart remains mildly enlarged. There is mild central pulmonary vascular congestio n without overt edema. No acute fractures. IMPRESSION: A small left pleural effusion and left basilar densities have slightly progressed. ACT 112: Negative or not required by law. Electronically signed by: Mitchel Anna M.D. 11/05/2023 8:26 AM
--- NOTE | 2023-11-05 13:10 | Hospitalist Progress Note ---
Date of Service November 05, 2023 Assessment & Plan (1) SOB (shortness of breath): Plan: 73-year-old female with past medical history significant for type 2 diabetes, hyperlipidemia, obesity, CKD stage IV, history of recurrent major depression, vertigo, history of double vision, nystagmus, currently living at assisted living comes because of shortness of breath. Patient states shortness going on for last couple of weeks but getting progressively worsened. Patient Was Admitted in Early September with KAVITA and Metabolic Acidosis and Confusion. Confusion Thought to Be from Renal Uremia and Possible Untreated Sleep Apnea. She Was on Lokelma in the past but Because of Her Outpatient Labs Showed Hypokalemia Lokelma Was Stopped and Currently She is on Potassium Supplements. Acute hypoxic respiratory failure Bilateral pleural effusion (left> right) status post pigtail chest tube placement on 11/02/2023, removed on 11/03/2023 Possible Pneumonia, ruled out Patient presents with shortness of breath which is progressive increasing worse Chest x-ray on admission personally reviewed; interval development of moderate to large left pleural effusion with associated airspace opacity. CT chest shows bilateral pleural effusion(left greater than right) Pleural fluid showed transudate pattern Gram stain negative Pleural effusion likely secondary to volume overload due to CKD. Discussed with pulmonology. Diuresis with torsemide as per nephrology Demand Ischemia EKG Personally reviewed; normal sinus rhythm. High since troponin 67, 63 Echocardiogram shows EF of 55 to 60% with grade 1 diastolic dysfunction Hyperkalemia Potassium 5.7 on admission was on potassium supplement due to hypokalemia Monitor BMP CKD Stage IV Presented Creatinine of 2.7 Which Seems to Be around Baseline Creatinine increased to 3.27 Monitor;nephrology on board Type 2 Diabetes Will Hold Home Long Acting Insulin On Lantus Sliding Scale We Will Monitor Morbid Obesity Needs Counseling Sleep Apnea CPAP/Oxygen Nightly Depression on Fluoxetine Hypertension on Amlodipine/Hydralazine. Hold Losartan due to hyperkalemia Will Monitor Hyperlipidemia on Statin, continue GERD on Omeprazole Anemia of Chronic Disease Hemoglobin stable Will Monitor DVT Prophylaxis Heparin Subcu Disposition Telemetry; PT OT eval pending CODE STATUS Full Code Time spent evaluating patient, direct bedside care, chart review, placing orders, interpretation of diagnostic studies, discussion with consultants, patient, and family members, as well as other required patient management activities is 50 minutes Please note the above document was generated using voice recognition software. It may contain grammatical, syntax or spelling errors. Any formal questions or concerns about the content, text or information contained within the body of this dictation should be directly addressed to the provider for clarification Admission and Anticipated Discharge Date Admission Date: November 01, 2023 Subjective Patient seen and examined at bedside. She is sitting up at the side of the bed on a chair; comfortable. Vitals are stable and she is saturating well on room air Review of Systems Review of Systems: All systems reviewed & are unremarkable except as noted in Subjective Physical Exam Physical Exam: General- Not in distress Head- atraumatic Eyes- PERRL. ENT- oropharynx clear Neck- supple, no JVD. Lungs- Decreased breath sound at bilateral lung bases Heart- regular rate and rhythm; no murmur, no gallop. Abdomen- normal bowel sounds, soft, nontender, no distension. Extremities- no pretibial edema, no erythema seen. Neuro- alert, oriented PERRL, no facial palsy; no dysarthria; moves extremities. Results & Data Results & Data Vital Signs (Past 12 Hours) Vital Signs Temp Pulse Pulse Resp BP Pulse Ox O2 Del Method 11/05/23 12:16 36.6 C 78 18 133/61 94 Room Air 11/05/23 07:53 36.7 C 90 18 151/63 H 94 Room Air 11/05/23 07:50 81 11/05/23 03:20 36.6 C 83 19 159/73 H 92 Room Air
[2023-11-06 06:31] LABS: BUN Creatinine Ratio 10.1 (10-20); Creatinine Clr Calc Pharmacy 13.8 ml/min; Est GFR (African American) 13.4 ml/min; Est GFR (Non-African American) 11.6 ml/min; Potassium 3.5 mmol/L (3.5-5.1)
--- NOTE | 2023-11-06 08:24 | XRay Report ---
XR chest 1V portable HISTORY: Follow-up left pleural effusion. chest tube COMPARISON: Chest 11/05/2023. FINDINGS: No pneumothorax. A trace left pleural effusion and left basilar densities have improved. No new focal lung consolidations. The cardiac silhouette remains borderline enlarged. No evidence for p ulmonary edema. No acute fractures. IMPRESSION: Interval improvement in the trace left pleural effusion and left basilar densities. No pneumothorax. ACT 112: Negative or not required by law. Electronically signed by: Mitchel Anna M.D. 11/06/2023 8:23 AM
[2023-11-06] MEDS: hydrALAZINE TAB 50 MG TAB PO SCH ×2 (08:25→13:00)
--- NOTE | 2023-11-06 10:04 | Nephrology Progress Note ---
Date of Service November 06, 2023 Assessment & Plan Admission and Anticipated Discharge Date Admission Date: November 01, 2023 Subjective Assessment & Plan (1) Hypertensive urgency: SBP 170-180s in setting of volume overload, advanced CKD. target SBP 130-140s continue amlodipine, hydralazine . Raise the dose of Hydralazine Now on Demadex 80 daily. daily bmp High risk for complications of uncontrolled HTN, fluid overload, electrolyte issues in setting of acute illness w/ ESRD/CKD4 (2) CKD (chronic kidney disease) stage 4, GFR 15-29 ml/min: advanced CKD 4 but acting more like CKD 5 pt with some uremic symptoms like nausea and poor appetite. also Pl effsuion with vol Overload. She wants to do In center HD. cannot r/o start this admission as creat is still rising. Did discuss this with patient and her daughter and in agreement. Creat now rising daily for 4 days now. CXR shows better Pl effusion but one from today is better (3) Hyperkalemia: Difficult situation given she has had both super low and also high K. partly because of No food intake making it difficult. time spent 45 mins S----Patient feels better she is now on room air blood pressure is high. She is making urine. Renal Function is worsening on a daily basis. Physical Exam Physical Exam: General- Not in distress Head- atraumatic ENT- oropharynx clear Neck- supple, no JVD. Lungs- Decreased breath sound at bilateral lung bases Heart- regular rate and rhythm; no murmur, no gallop. Abdomen- normal bowel sounds, soft, nontender, no distension. Extremities- no edema, no erythema seen. Neuro- alert, oriented PERRL, no facial palsy; no dysarthria; moves extremities. Results & Data Vital Signs (Past 12 Hours) Vital Signs Temp Pulse Pulse Resp BP Pulse Ox O2 Del Method 11/06/23 09:45 Room Air 11/06/23 08:11 37.0 C 98 H 20 169/80 H 92 Room Air 11/06/23 07:30 88 11/06/23 03:18 37.1 C 91 H 18 179/84 H 92 Room Air 11/05/23 23:02 36.8 C 82 18 158/66 H 92 Room Air
--- NOTE | 2023-11-06 10:53 | Electrocardiogram Report ---
Test Reason : Blood Pressure : / mmHG Vent. Rate : 082 BPM Atrial Rate : 082 BPM P-R Int : 154 ms QRS Dur : 090 ms QT Int : 394 ms P-R-T Axes : 051 -07 072 degrees QTc Int : 460 ms Normal sinus rhythm Normal ECG When compared with ECG of 02-NOV-2023 05:58, No significant change was found Confirmed by Anjel Aranda ([id number]) on 11/06/2023 10:53:20 AM Referred By: Ghada Salazar Confirmed By:Anjel Aranda
--- NOTE | 2023-11-06 11:56 | Electrocardiogram Report ---
Test Reason : Blood Pressure : / mmHG Vent. Rate : 088 BPM Atrial Rate : 088 BPM P-R Int : 166 ms QRS Dur : 086 ms QT Int : 384 ms P-R-T Axes : 054 -13 067 degrees QTc Int : 464 ms Normal sinus rhythm Normal ECG When compared with ECG of 03-NOV-2023 06:20, (unconfirmed) No significant change was found Confirmed by Anjel Aranda ([id number]) on 11/06/2023 11:55:41 AM Referred By: Ghada Salazar Confirmed By:Anjel Aranda
--- NOTE | 2023-11-06 12:36 | Hospitalist Progress Note ---
Date of Service November 06, 2023 Assessment & Plan (1) SOB (shortness of breath): Plan: 73-year-old female with past medical history significant for type 2 diabetes, hyperlipidemia, obesity, CKD stage IV, history of recurrent major depression, vertigo, history of double vision, nystagmus, currently living at assisted living comes because of shortness of breath. Patient states shortness going on for last couple of weeks but getting progressively worsened. Patient Was Admitted in Early September with KAVITA and Metabolic Acidosis and Confusion. Confusion Thought to Be from Renal Uremia and Possible Untreated Sleep Apnea. She Was on Lokelma in the past but Because of Her Outpatient Labs Showed Hypokalemia Lokelma Was Stopped and Currently She is on Potassium Supplements. Acute hypoxic respiratory failure Bilateral pleural effusion (left> right) status post pigtail chest tube placement on 11/02/2023, removed on 11/03/2023 Possible Pneumonia, ruled out Patient presents with shortness of breath which is progressive increasing worse Chest x-ray on admission personally reviewed; interval development of moderate to large left pleural effusion with associated airspace opacity. CT chest shows bilateral pleural effusion(left greater than right) Pleural fluid showed transudate pattern Gram stain negative Cytology negative for malignancy CXR from 11/04- improvement in pleural effusion Pleural effusion likely secondary to volume overload due to CKD. Discussed with pulmonology. was initially diuresed with torsemide 80 mg once a day; currently on hold due to rising creatinine Demand Ischemia EKG Personally reviewed; normal sinus rhythm. High since troponin 67, 63 Echocardiogram shows EF of 55 to 60% with grade 1 diastolic dysfunction Hyperkalemia Potassium 5.7 on admission was on potassium supplement due to hypokalemia Monitor BMP KAVITA on CKD Stage IV Presented Creatinine of 2.7 Which Seems to Be around Baseline Creatinine increased to 3.66 Nephrology on board. Discussed with nephrology; continue to monitor creatinine inpatient. Patient might need dialysis in near future. Hypertension Patient's blood pressure persistently elevated; on amlodipine 10 mg once a day Hydralazine increased to 100 mg 3 times a day Losartan on hold due to KAVITA on CKD. Type 2 Diabetes Will Hold Home Long Acting Insulin On Lantus Sliding Scale We Will Monitor Morbid Obesity Needs Counseling Sleep Apnea CPAP/Oxygen Nightly Depression on Fluoxetine Hyperlipidemia on Statin, continue GERD on Omeprazole Anemia of Chronic Disease Hemoglobin stable Will Monitor DVT Prophylaxis Heparin Subcu Disposition PT OT recommended rehab; patient continues to be hospitalized for close monitoring due to KAVITA on CKD. Possible discharge in next few days depending on clinical improvement. CODE STATUS Full Code Time spent evaluating patient, direct bedside care, chart review, placing orders, interpretation of diagnostic studies, discussion with consultants, patient, and family members, as well as other required patient management activities is 50 minutes Please note the above document was generated using voice recognition software. It may contain grammatical, syntax or spelling errors. Any formal questions or concerns about the content, text or information contained within the body of this dictation should be directly addressed to the provider for clarification Admission and Anticipated Discharge Date Admission Date: November 01, 2023 Subjective Patient seen and examined at bedside. Comfortable; not in distress. Denies fever, chills, chest pain, shortness of breath, abdominal pain or urinary symptoms. No significant overnight events Review of Systems Review of Systems: All systems reviewed & are unremarkable except as noted in Subjective Physical Exam Physical Exam: General- Not in distress Head- atraumatic Eyes- PERRL. ENT- oropharynx clear Neck- supple, no JVD. Lungs- Decreased breath sound at bilateral lung bases; improved from previous day Heart- regular rate and rhythm; no murmur, no gallop. Abdomen- normal bowel sounds, soft, nontender, no distension. Extremities- no pretibial edema, no erythema seen. Neuro- alert, oriented PERRL, no facial palsy; no dysarthria; moves extremities. Results & Data Results & Data Vital Signs (Past 12 Hours) Vital Signs Temp Pulse Pulse Resp BP Pulse Ox O2 Del Method 11/06/23 11:44 36.8 C 80 18 147/74 H 92 Room Air 11/06/23 09:45 Room Air 11/06/23 08:11 37.0 C 98 H 20 169/80 H 92 Room Air 11/06/23 07:30 88 11/06/23 03:18 37.1 C 91 H 18 179/84 H 92 Room Air
--- NOTE | 2023-11-07 07:16 | XRay Report ---
XR chest 1V portable HISTORY: 73 years-old Female chest tube acute shortness of breath COMPARISON: 11/06/2023 TECHNIQUE: AP view of the chest FINDINGS: Cardiomediastinal and hilar silhouettes are within normal limits. No pneumothorax. Small left pleural effusion with mild left basilar densities. Bones appear grossly intact. IMPRESSION: 1. Small left pleural effusion with mild left basilar opacities. 2. No pneumothorax identified. ACT 112: Negative or not required by law. The above report was generated using voice recognition software. It may contain grammatical, syntax o r spelling errors. Electronically signed by: Wander Donohue M.D. 11/07/2023 7:14 AM
--- NOTE | 2023-11-07 08:43 | Hospitalist Progress Note ---
Date of Service November 07, 2023 Assessment & Plan (1) SOB (shortness of breath): Plan: 73-year-old female with past medical history significant for type 2 diabetes, hyperlipidemia, obesity, CKD stage IV, history of recurrent major depression, vertigo, history of double vision, nystagmus, currently living at assisted living comes because of shortness of breath. Patient states shortness going on for last couple of weeks but getting progressively worsened. Patient Was Admitted in Early September with KAVITA and Metabolic Acidosis and Confusion. Confusion Thought to Be from Renal Uremia and Possible Untreated Sleep Apnea. She Was on Lokelma in the past but Because of Her Outpatient Labs Showed Hypokalemia Lokelma Was Stopped and Currently She is on Potassium Supplements. Acute hypoxic respiratory failure Bilateral pleural effusion (left> right) status post pigtail chest tube placement on 11/02/2023, removed on 11/03/2023 Possible Pneumonia, ruled out Patient presents with shortness of breath which is progressive increasing worse Chest x-ray on admission personally reviewed; interval development of moderate to large left pleural effusion with associated airspace opacity. CT chest shows bilateral pleural effusion(left greater than right) Pleural fluid showed transudate pattern Gram stain negative Cytology negative for malignancy CXR from 11/04- improvement in pleural effusion Pleural effusion likely secondary to volume overload due to CKD. Discussed with pulmonology. was initially diuresed with torsemide 80 mg once a day; currently on hold due to rising creatinine Demand Ischemia EKG Personally reviewed; normal sinus rhythm. High since troponin 67, 63 Echocardiogram shows EF of 55 to 60% with grade 1 diastolic dysfunction Hyperkalemia Potassium 5.7 on admission was on potassium supplement due to hypokalemia Monitor BMP KAVITA on CKD Stage IV Presented Creatinine of 2.7 Which Seems to Be around Baseline Creatinine rising; Nephrology on board. Discussed with nephrology; continue to monitor creatinine inpatient. Patient might need dialysis in near future. Hypertension Patient's blood pressure persistently elevated; on amlodipine 10 mg once a day Hydralazine increased to 100 mg 3 times a day Losartan on hold due to KAVITA on CKD. BP overall improved Type 2 Diabetes Will Hold Home Long Acting Insulin On Lantus Sliding Scale We Will Monitor Morbid Obesity Needs Counseling Sleep Apnea CPAP/Oxygen Nightly Depression on Fluoxetine Hyperlipidemia on Statin, continue GERD on Omeprazole Anemia of Chronic Disease Hemoglobin stable Will Monitor DVT Prophylaxis Heparin Subcu Disposition PT OT recommended rehab; patient continues to be hospitalized for close monitoring due to KAVITA on CKD. May need dialysis inpatient. CODE STATUS Full Code Discussed with patient's daughter on 11/05/2023. Agreement with treatment plan. answered questions/queries Time spent evaluating patient, direct bedside care, chart review, placing orders, interpretation of diagnostic studies, discussion with consultants, patient, and family members, as well as other required patient management activities is 50 minutes Please note the above document was generated using voice recognition software. It may contain grammatical, syntax or spelling errors. Any formal questions or concerns about the content, text or information contained within the body of this dictation should be directly addressed to the provider for clarification Admission and Anticipated Discharge Date Admission Date: November 01, 2023 Subjective Patient seen and examined at bedside. She is comfortable; not in any distress. Saturating well in RA. Review of Systems Review of Systems: All systems reviewed & are unremarkable except as noted in Subjective Physical Exam Physical Exam: General- Not in distress Head- atraumatic Eyes- PERRL. ENT- oropharynx clear Neck- supple, no JVD. Lungs-b/l clear breath sounds Heart- regular rate and rhythm; no murmur, no gallop. Abdomen- normal bowel sounds, soft, nontender, no distension. Extremities- no pretibial edema, no erythema seen. Neuro- alert, oriented PERRL, no facial palsy; no dysarthria; moves extremities. Results & Data Results & Data Vital Signs (Past 12 Hours) Vital Signs Temp Pulse Pulse Pulse Resp BP Pulse Ox 11/07/23 08:04 36.8 C 90 16 116/71 94 11/07/23 07:30 11/07/23 03:27 36.6 C 102 H 20 151/70 H 94 11/06/23 22:59 36.8 C 93 H 18 146/64 H 93 11/06/23 22:00 90 11/06/23 20:45 O2 Del Method 11/07/23 08:04 Room Air 11/07/23 07:30 Room Air 11/07/23 03:27 Room Air 11/06/23 22:59 Room Air 11/06/23 22:00 11/06/23 20:45 Room Air
--- NOTE | 2023-11-07 10:52 | Nephrology Progress Note ---
Date of Service November 07, 2023 Assessment & Plan Admission and Anticipated Discharge Date Admission Date: November 01, 2023 Subjective Assessment & Plan (1) Hypertensive urgency: SBP 170-180s in setting of volume overload, advanced CKD. target SBP 130-140s continue amlodipine, hydralazine . BP much better now. Now on Demadex 80 daily. daily bmp (2) CKD (chronic kidney disease) stage 4, GFR 15-29 ml/min: advanced CKD 4 but acting more like CKD 5 pt with some uremic symptoms like nausea and poor appetite. also Pl effusion with vol Overload. She wants to do In center HD when needed cannot r/o start this admission as creat is still rising. Did discuss this with patient and her daughter and in agreement. Creat now rising daily for 5 days now. CXR shows better Pl effusion but one from 11/05 is better. labs today Creat up again a bit to 3.75 BUN 48. Will follow real labs for now. (3) Hyperkalemia: Difficult situation given she has had both super low and also high K. partly because of No food intake making it difficult. time spent 45 mins S----Patient feels better she is now on room air blood pressure is normal now. She is making urine. Renal Function is worsening on a daily basis. Physical Exam Physical Exam: General- Not in distress Head- atraumatic ENT- oropharynx clear Neck- supple, no JVD. Lungs- Decreased breath sound at bilateral lung bases Heart- regular rate and rhythm; no murmur, no gallop. Abdomen- normal bowel sounds, soft, nontender, no distension. Extremities- no edema, no erythema seen. Neuro- alert, oriented PERRL, no facial palsy; no dysarthria; moves extremities. Results & Data Vital Signs (Past 12 Hours) Vital Signs Temp Pulse Pulse Resp BP Pulse Ox O2 Del Method 11/07/23 08:04 36.8 C 90 16 116/71 94 Room Air 11/07/23 07:30 Room Air 11/07/23 03:27 36.6 C 102 H 20 151/70 H 94 Room Air 11/06/23 22:59 36.8 C 93 H 18 146/64 H 93 Room Air
[2023-11-07 11:11] LABS: Calcium 9.1 mg/dl (8.6-10.3); Potassium 3.7 mmol/L (3.5-5.1)
[2023-11-07 11:16] LABS: BUN Creatinine Ratio 12.8 (10-20); Creatinine Clr Calc Pharmacy 13.4 ml/min; Est GFR (Non-African American) 11.2 ml/min
[2023-11-08 06:12] LABS: Basophils # (auto) 0.08 K/uL (0.00-0.20); Basophils % (auto) 0.8 %; Eosinophils # (auto) 0.24 K/uL (0.00-0.50); Eosinophils % (auto) 2.5 %; Hematocrit (blood only) 26.1 % (37.0-47.0); Hemoglobin 8.2 g/dl (12.0-16.0); Immature Granulocytes # (auto) 0.06 K/uL (0.01-0.20); Immature Granulocytes % (auto) 0.6 %; Lymphocytes # (auto) 1.01 K/uL (1.20-3.40); Lymphocytes % (auto) 10.3 %; Mean Corpuscular Hemoglobin 28.4 pg (25.0-34.0); Mean Corpuscular Hgb Conc 31.4 g/dL (32.0-36.0); Mean Corpuscular Volume 90.3 fL (80.0-100.0); Monocytes # (auto) 0.62 K/uL (0.11-0.59); Monocytes % (auto) 6.3 %; Neutrophils # (auto) 7.77 K/uL (1.40-6.50); Neutrophils % (auto) 79.5 %; Platelet Count 329 K/uL (130-400); RDW Coefficient of Variation 14.3 % (11.5-14.5); RDW Standard Deviation 46.6 fL (36.4-46.3); Red Blood Count 2.89 M/uL (4.20-5.40); White Blood Count 9.78 K/ul (4.8-10.8)
[2023-11-08 06:25] LABS: BUN Creatinine Ratio 12.6 (10-20); Calcium 9.3 mg/dl (8.6-10.3); Creatinine Clr Calc Pharmacy 14.8 ml/min; Est GFR (African American) 14.6 ml/min; Est GFR (Non-African American) 12.6 ml/min; Potassium 3.5 mmol/L (3.5-5.1)
--- NOTE | 2023-11-08 10:05 | Nephrology Progress Note ---
Date of Service November 08, 2023 Assessment & Plan Admission and Anticipated Discharge Date Admission Date: November 01, 2023 Subjective Assessment & Plan (1) Hypertensive urgency: SBP 170-180s in setting of volume overload, advanced CKD. target SBP 130-140s continue amlodipine, hydralazine . BP much better now. Demadex on hold last few days. However have to restart as does need Diuretics. will restart. Also add kcl 20 meq daily. daily bmp (2) CKD (chronic kidney disease) stage 4, GFR 15-29 ml/min: advanced CKD 4 but acting more like CKD 5 pt with some uremic symptoms like nausea and poor appetite. However I dont think this is all related with CKD. She has Depression and ? gastroparesis also making this worse. also Pl effusion with vol Overload. She wants to do In center HD when needed Did discuss this with patient and her daughter and in agreement. Creat seems to have peaked at this time and is down a bit from yesterday CXR from 11/05 is better--less Pl eff labs today Creat down a bit to 3.4. Will try to delay hemodialysis as much as possible. will place [facility]-- [facility]. I will ask Dr Dubois 3) Hyperkalemia: Difficult situation given she has had both super low and also high K. partly because of No food intake making it difficult. Now for many days k is dropping and is now 3.5. May even need Kcl Supplement. S----Patient feels better she is now on room air blood pressure is normal now. She is making urine. Renal Function is worsening on a daily basis. Physical Exam Physical Exam: General- Not in distress Head- atraumatic ENT- oropharynx clear Neck- supple, no JVD. Lungs- Decreased breath sound at bilateral lung bases Heart- regular rate and rhythm; no murmur, no gallop. Abdomen- normal bowel sounds, soft, nontender, no distension. Extremities- no edema, no erythema seen. Neuro- alert, oriented PERRL, no facial palsy; no dysarthria; moves extremities. Results & Data Vital Signs (Past 12 Hours) Vital Signs Temp Pulse Pulse Resp BP Pulse Ox O2 Del Method 11/08/23 09:40 Room Air 11/08/23 07:36 86 11/08/23 07:31 36.5 C 105 H 20 161/70 H 93 Room Air 11/08/23 03:38 36.5 C 91 H 18 145/64 H 90 Room Air 11/07/23 23:20 36.4 C L 88 18 136/63 90 Room Air
[2023-11-08] MEDS: POTASSIUM CHLORIDE 20 MEQ/15 ML UDC PO SCH (11:59)
--- NOTE | 2023-11-08 14:03 | Ultrasound Report ---
US venous mapping bilateral upper extremity CLINICAL HISTORY: end stage renal disease. Venous mapping for AV fistula. COMPARISON STUDY: None. FINDINGS: There is thrombus identified within the mid to distal right cephalic vein. This measures ap proximately 5.3 cm in length. The proximal right cephalic vein is patent measuring a diameter between 3.6 and 4.8 mm. The distal right cephalic vein and right basilic vein were not identified due to the overlying bandage. The distal left basilic vein was also not identified. The remaining left basilic vein and left cephalic vein are patent with diameters provided on the worksheet. IMPRESSION: 1. Thrombus identified within the mid to distal right cephalic vein which measures 5.3 cm in length. 2. The distal bilateral basilic veins and distal right cephalic vein were not identified. ACT 112: Negative or not required by law. Electronically signed by: Mitchel Anna M.D. 11/08/2023 2:01 PM
--- NOTE | 2023-11-08 18:28 | Hospitalist Progress Note ---
Date of Service November 08, 2023 Assessment & Plan (1) SOB (shortness of breath): Plan: Per previous hospitalist notes with addendum: 73-year-old female with past medical history significant for type 2 diabetes, hyperlipidemia, obesity, CKD stage IV, history of recurrent major depression, vertigo, history of double vision, nystagmus, currently living at assisted living comes because of shortness of breath. Patient states shortness going on for last couple of weeks but getting progressively worsened. Patient Was Admitted in Early September with KAVITA and Metabolic Acidosis and Confusion. Confusion Thought to Be from Renal Uremia and Possible Untreated Sleep Apnea. She Was on Lokelma in the past but Because of Her Outpatient Labs Showed Hypokalemia Lokelma Was Stopped and Currently She is on Potassium Supplements. Acute hypoxic respiratory failure Bilateral pleural effusion (left> right) status post pigtail chest tube placement on 11/02/2023, removed on 11/03/2023 Possible Pneumonia, ruled out Patient presents with shortness of breath which is progressive increasing worse Chest x-ray on admission personally reviewed; interval development of moderate to large left pleural effusion with associated airspace opacity. CT chest shows bilateral pleural effusion(left greater than right) Pleural fluid showed transudate pattern Gram stain negative Cytology negative for malignancy CXR from 11/04- improvement in pleural effusion Pleural effusion likely secondary to volume overload due to CKD. Discussed with pulmonology. was initially diuresed with torsemide 80 mg once a day; currently on hold due to rising creatinine 11/07 Stable on room air Demand Ischemia EKG Personally reviewed; normal sinus rhythm. High since troponin 67, 63 Echocardiogram shows EF of 55 to 60% with grade 1 diastolic dysfunction Hyperkalemia Potassium 5.7 on admission was on potassium supplement due to hypokalemia Monitor BMP Potassium 3.5 KAVITA on CKD Stage IV Presented Creatinine of 2.7 Which Seems to Be around Baseline Creatinine rising; Nephrology on board. Discussed with nephrology; continue to monitor creatinine inpatient. Patient might need dialysis in near future. Creatinine improving, currently 3.4 Hold off on inpatient hemodialysis per nephro Vascular surgery consulted for planning of aVF Hypertension Patient's blood pressure persistently elevated; on amlodipine 10 mg once a day Hydralazine increased to 100 mg 3 times a day Losartan on hold due to KAVITA on CKD. BP overall improved Type 2 Diabetes Will Hold Home Long Acting Insulin On Lantus Sliding Scale We Will Monitor Morbid Obesity Needs Counseling Sleep Apnea CPAP/Oxygen Nightly Depression on Fluoxetine Hyperlipidemia on Statin, continue GERD on Omeprazole Anemia of Chronic Disease Hemoglobin stable Will Monitor DVT Prophylaxis Heparin Subcu Disposition PT OT recommended rehab; patient continues to be hospitalized for close monitoring due to KAVITA on CKD. May need dialysis inpatient. CODE STATUS Full Code plan of care discussed with patient in detail and at length all questions answered they are understanding, agreeable, comfortable with the plan of care Admission and Anticipated Discharge Date Admission Date: November 01, 2023 Subjective ff for Pleural effusion, etc. Seen resting in bed, comfortable, not in distress States she feels fine overall No shortness of breath, chest pain Voiding without issues No other new symptom Review of Systems Review of Systems: all noted and negative except for above Physical Exam Physical Exam: General- oriented x 3, not in distress, speaks in sentences with no effort or accessory muscle use Eyes- anicteric Neck- no JVD Lungs- clear breath sounds bilaterally, no rales/wheezes Heart- normal rate, regular rhythm; no murmurs Abdomen- normal bowel sounds, nondistended, soft, nontender Extremities- no pretibial edema, no calf tenderness Neuro- alert, oriented x 3; no gross focal neurologic deficits Skin- warm & dry Results & Data Results & Data Vital Signs (Past 12 Hours) Vital Signs Temp Pulse Pulse Resp BP BP Pulse Ox 11/08/23 15:19 88 11/08/23 15:14 36.7 C 86 18 143/71 H 95 11/08/23 10:40 36.7 C 80 17 125/69 93 11/08/23 09:40 11/08/23 07:36 86 11/08/23 07:31 36.5 C 105 H 20 161/70 H 93 O2 Del Method 11/08/23 15:19 11/08/23 15:14 Room Air 11/08/23 10:40 Room Air 11/08/23 09:40 Room Air 11/08/23 07:36 11/08/23 07:31 Room Air all noted and reviewed including below
[2023-11-09 09:12] LABS: BUN Creatinine Ratio 12.3 (10-20); Calcium 9.3 mg/dl (8.6-10.3); Creatinine Clr Calc Pharmacy 13.7 ml/min; Est GFR (African American) 13.3 ml/min; Est GFR (Non-African American) 11.5 ml/min
--- NOTE | 2023-11-09 09:40 | Consultation ---
Date of Consultation November 09, 2023 Assessment & Plan (1) End stage renal disease: Pt with worsening renal function, advised by nephrology to undergo AVF creation. Vein mapping reviewed by Dr Dubois, recommends LUE AC cephalic V AVF creation. Procedure, benefits, and alternatives discussed with pt. Risks, including bleeding, infection, heart attack, , wound or graft infection, damage to limb from steal of blood flow, all discussed with pt at length. She expresses understanding and agreement to proceed. Will contact pt with OR arrangements. LEFT ARM RESTRICTION IN PLACE IN PREPARATION FOR AVF CREATION. RUE superficial thrombus does not require limb restriction. Clarified with RN, limb restriction band placed LUE only. History of Present Illness Reason for Consultation: ESRD need avf Attending Physician: Lane England MD History of Present Illness 73 yo f with hx of HTN, CKD IV,NSTEMI, depression, DMII, hypercholesterolemia, admitted with acute on chronic kidney disease, seen in consultation today to discuss AVF creation. Pt states she is hoping to wait to start HD until absolutely necessary. Admits PUCKETT, fatigue/malaise, edema, nausea. Deneis RIVERA, fever, chest pain, SOB at rest, abd pain, V, rest pain, claudication, other complaints. BUE vein mapping US demonstrates chronic thrombus in R cephalic and basilic veins, and usable LUE cephalic vein. Allergies Allergy/AdvReac Type Severity Reaction Status Date / Time No Known Allergies Allergy Verified 11/01/23 19:45 Home Medications Medication Instructions Recorded Confirmed Type aspirin 81 mg tablet,delayed 81 mg PO QAM 03/13/19 11/01/23 History release cyanocobalamin (vitamin B-12) 500 500 mcg PO QAM 03/13/19 11/01/23 History mcg tablet (Vitamin B-12) acetaminophen 325 mg tablet 325 mg PO Q6H PRN Pain 09/09/23 11/01/23 History (Tylenol) cholecalciferol (vitamin D3) 125 125 mcg PO QAM 09/09/23 11/01/23 History mcg (5,000 unit) tablet (Vitamin D3) fluoxetine 40 mg capsule 40 mg PO QAM 09/09/23 11/01/23 History fluticasone propionate 50 2 spray intranasal QAM 09/09/23 11/01/23 History mcg/actuation nasal spray,suspension omega-3 fatty acids 1,000 mg 1,000 mg PO QAM 09/09/23 11/01/23 History capsule rosuvastatin 10 mg tablet 10 mg PO HS 09/09/23 11/01/23 History guaifenesin 600 mg tablet, 600 mg PO Q12 #10 tabs 09/15/23 11/01/23 Rx extended release 12 hr (Mucinex) losartan 50 mg tablet 50 mg PO QAM #30 tabs 09/25/23 11/01/23 Rx amlodipine 10 mg tablet 10 mg PO HS 10/17/23 11/01/23 History cetirizine 10 mg tablet 10 mg PO QAM 10/17/23 11/01/23 History docusate sodium 100 mg capsule 100 mg PO BID 10/17/23 11/01/23 History hydralazine 100 mg tablet 100 mg PO QAM 10/17/23 11/01/23 History insulin glargine U-300 conc 300 8 unit subcut DAILY 10/17/23 11/01/23 History unit/mL (1.5 mL) subcutaneous pen (Toujeo SoloStar U-300 Insulin) magnesium hydroxide 400 mg/5 mL 30 ml PO DAILY PRN Constipation 10/17/23 History oral suspension (Milk of Magnesia) omeprazole 40 mg capsule,delayed 40 mg PO DAILYBB 10/17/23 11/01/23 History release ondansetron HCl 4 mg tablet 4 mg PO Q8 PRN Nausea 10/17/23 11/01/23 History polyethylene glycol 3350 17 gram 17 g PO QAM PRN Constipation 10/17/23 11/01/23 History oral powder packet (SmoothLax) sennosides 8.6 mg tablet (Senokot) 8.6 mg PO BID PRN Constipation 10/17/23 11/01/23 History tramadol 50 mg tablet 50 mg PO Q6 PRN Pain (Scale Score 10/17/23 11/01/23 History 4-6) insulin lispro 100 unit/mL 5 unit subcut AC 11/01/23 11/01/23 History subcutaneous pen (Humalog KwikPen (U-100) Insulin) potassium chloride 20 mEq 20 meq PO BID 11/01/23 11/01/23 History tablet,extended release(part/cryst) Patient History Medical History CKD (chronic kidney disease) stage 4, GFR 15-29 ml/min Type 2 diabetes mellitus Surgical History History of nasal surgery Family History Other Breast cancer No pertinent family history Social History Smoking Status: Never smoker Second Hand Exposure: No; Do You Dip or Chew Tobacco: No; Hx Alcohol Use: No Hx Substance Use: No Preferred Language: Burkinan Communication Ability: Effective Webmethods Consultant Required: No Beliefs That Will Affect Care: None Current Living Situation: Alone Current Living Situation Comment: [facility] Feels Safe at Home: Yes Assistive Devices: Walker and Wheelchair Review of Systems Review of Systems: All systems reviewed & are unremarkable except as noted in HPI & below Physical Exam Constitutional: WD/WN, vitals as above + morbidly obese, cooperative and comfortable; not in distress Neck: trachea midline Respiratory: normal respiratory effort, lungs clear to auscultation Auscultation: + diminished lung sounds Cardiovascular: Rate/Rhythm: regular rate and regular rhythm Vessels: posterior tibial pulses present, dorsalis pedis pulses present and radial pulses present; + abnormal peripheral pulses Extremities: normal capillary refill and + edema Gastrointestinal (Abdomen): Inspection/Auscultation: abdomen normal to inspection and normal bowel sounds Percussion/Palpation: abdomen soft; abdomen nontender Musculoskeletal: no cyanosis or clubbing, extremities motor strength 5/5 Skin: no rashes, warm and dry Neurologic: moves all extremities and awake; no focal motor deficits and not confused Psychiatric: A+Ox3, euthymic affect Results & Data Vital Signs (Past 12 Hours) Vital Signs Temp Pulse Pulse Resp BP BP Pulse Ox 11/09/23 08:29 37.1 C 75 18 120/70 94 11/09/23 03:32 36.7 C 87 18 148/65 H 91 11/08/23 22:52 36.9 C 100 H 16 151/75 H 95 O2 Del Method 11/09/23 08:29 Room Air 11/09/23 03:32 Room Air 11/08/23 22:52 Room Air
--- NOTE | 2023-11-09 11:23 | Nephrology Progress Note ---
Date of Service November 09, 2023 Assessment & Plan Admission and Anticipated Discharge Date Admission Date: November 01, 2023 Subjective Assessment & Plan (1) Hypertensive urgency: SBP 170-180s in setting of volume overload, advanced CKD. target SBP 130-140s continue amlodipine, hydralazine . BP much better now. (2) CKD (chronic kidney disease) stage 4, GFR 15-29 ml/min: advanced CKD 4 but acting more like CKD 5 pt with some uremic symptoms like nausea and poor appetite. However I dont think this is all related with CKD. She has Depression and ? gastroparesis also making this worse. also Pl effusion with vol Overload. She wants to do In center HD when needed Did discuss this with patient and her daughter and in agreement. Demadex on hold last few days. However did restart 11/07 as she does need Diuretics given what caused her hospital admission. Lower kcl to 10 daily. daily bmp labs today Creat up a bit to 3.6. Will try to delay hemodialysis as much as possible. given rising creat we should monitor her more. If creat gets higher than 4 will also start hemodialysis. will place AVF-- [facility]. Seen by Dr Dubois--vein mapping and assessment done. She will have AVF surgery within next 1-2 weeks 3) Hyperkalemia: Difficult situation given she has had both super low and also high K. partly because of No food intake making it difficult. k is 4 today. kcl 10 meq daily. S----Patient feels better she is now on room air blood pressure is normal now. She is making urine. Renal Function is worsening on a daily basis. Physical Exam Physical Exam: General- Not in distress Head- atraumatic ENT- oropharynx clear Neck- supple, no JVD. Lungs- Decreased breath sound at bilateral lung bases Heart- regular rate and rhythm; no murmur, no gallop. Abdomen- normal bowel sounds, soft, nontender, no distension. Extremities- no edema, no erythema seen. Neuro- alert, oriented PERRL, no facial palsy; no dysarthria; moves extremities. Results & Data Vital Signs (Past 12 Hours) Vital Signs Temp Pulse Pulse Resp BP BP Pulse Ox 11/09/23 08:29 37.1 C 75 18 120/70 94 11/09/23 08:00 11/09/23 03:32 36.7 C 87 18 148/65 H 91 O2 Del Method 11/09/23 08:29 Room Air 11/09/23 08:00 Room Air 11/09/23 03:32 Room Air
--- NOTE | 2023-11-09 16:37 | Hospitalist Progress Note ---
Date of Service November 09, 2023 Assessment & Plan (1) Acute hypoxemic respiratory failure: (2) Pleural effusion: (3) Acute kidney injury superimposed on chronic kidney disease: Plan: Per previous hospitalist notes with addendum: 73-year-old female with past medical history significant for type 2 diabetes, hyperlipidemia, obesity, CKD stage IV, history of recurrent major depression, vertigo, history of double vision, nystagmus, currently living at assisted l iving comes because of shortness of breath. Patient states shortness going on for last couple of weeks but getting progressively worsened. Patient Was Admitted in Early September with KAVITA and Metabolic Acidosis and Confusion. Confusion Thought to Be from Renal Uremia and Possible Untreated Sleep Apnea. She Was on Lokelma in the past but Because of Her Outpatient Labs Showed Hypokalemia Lokelma Was Stopped and Currently She is on Potassium Supplements. Acute hypoxic respiratory failure Bilateral pleural effusion (left> right) status post pigtail chest tube placement on 11/02/2023, removed on 11/03/2023 Possible Pneumonia, ruled out Patient presents with shortness of breath which is progressive increasing worse Chest x-ray on admission personally reviewed; interval development of moderate to large left pleural effusion with associated airspace opacity. CT chest shows bilateral pleural effusion(left greater than right) Pleural fluid showed transudate pattern Gram stain negative Cytology negative for malignancy CXR from 11/04- improvement in pleural effusion Pleural effusion likely secondary to volume overload due to CKD. Discussed with pulmonology. was initially diuresed with torsemide 80 mg once a day; currently on hold due to rising creatinine 11/08 Stable on room air Demand Ischemia EKG Personally reviewed; normal sinus rhythm. High since troponin 67, 63 Echocardiogram shows EF of 55 to 60% with grade 1 diastolic dysfunction Hyperkalemia Potassium 5.7 on admission was on potassium supplement due to hypokalemia Monitor BMP Potassium 3.5 KAVITA on CKD Stage IV Presented Creatinine of 2.7 Which Seems to Be around Baseline Creatinine rising; Nephrology on board. Discussed with nephrology; continue to monitor creatinine inpatient. Patient might need dialysis in near future. Creatinine improving, currently 3.4 Hold off on inpatient hemodialysis per nephro Vascular surgery consulted for planning of aVF Creatinine 3.6 Continue to monitor creatinine as an inpatient per nephrology service recommendation Hypertension Patient's blood pressure persistently elevated; on amlodipine 10 mg once a day Hydralazine increased to 100 mg 3 times a day Losartan on hold due to KAVITA on CKD. BP overall improved Type 2 Diabetes Will Hold Home Long Acting Insulin On Lantus Sliding Scale We Will Monitor Morbid Obesity Needs Counseling Sleep Apnea CPAP/Oxygen Nightly Depression on Fluoxetine Hyperlipidemia on Statin, continue GERD on Omeprazole Anemia of Chronic Disease Hemoglobin stable Will Monitor DVT Prophylaxis Heparin Subcu Disposition PT OT recommended rehab; patient continues to be hospitalized for close monitoring due to KAVITA on CKD. May need dialysis inpatient. CODE STATUS Full Code plan of care discussed with patient in detail and at length all questions answered they are understanding, agreeable, comfortable with the plan of care Admission and Anticipated Discharge Date Admission Date: November 01, 2023 Subjective Follow-up for pleural effusion, CKD, etc. Seen resting in bedside chair, comfortable, not in distress States she feels fine overall No new symptoms Review of Systems Review of Systems: all noted and negative except for above Physical Exam Physical Exam: General- oriented x 3, not in distress, speaks in sentences with no effort or accessory muscle use Eyes- anicteric Neck- no JVD Lungs- clear breath sounds bilaterally, no rales/wheezes Heart- normal rate, regular rhythm; no murmurs Abdomen- normal bowel sounds, nondistended, soft, nontender Extremities- no pretibial edema, no calf tenderness Neuro- alert, oriented x 3; no gross focal neurologic deficits Skin- warm & dry Results & Data Results & Data Vital Signs (Past 12 Hours) Vital Signs Temp Pulse Resp BP BP Pulse Ox O2 Del Method 11/09/23 15:14 36.8 C 89 19 156/69 H 94 Room Air 11/09/23 11:58 36.8 C 80 15 144/67 H 95 Room Air 11/09/23 08:29 37.1 C 75 18 120/70 94 Room Air 11/09/23 08:00 Room Air all noted and reviewed including below
[2023-11-10] MEDS: POTASSIUM CHLORIDE 20 MEQ/15 ML UDC PO SCH (09:16)
[2023-11-10 09:27] LABS: BUN Creatinine Ratio 12.1 (10-20); Calcium 9.5 mg/dl (8.6-10.3); Creatinine Clr Calc Pharmacy 12.9 ml/min; Est GFR (African American) 12.4 ml/min; Est GFR (Non-African American) 10.7 ml/min; Potassium 4.2 mmol/L (3.5-5.1)
--- NOTE | 2023-11-10 09:51 | Nephrology Progress Note ---
Date of Service November 10, 2023 Assessment & Plan Admission and Anticipated Discharge Date Admission Date: November 01, 2023 Subjective Assessment & Plan (1) Hypertensive urgency: SBP 170-180s in setting of volume overload, advanced CKD. target SBP 130-140s continue amlodipine, hydralazine . BP much better now. (2) CKD (chronic kidney disease) stage 4, GFR 15-29 ml/min: advanced CKD 4 but acting more like CKD 5 pt with some uremic symptoms like nausea and poor appetite. However I dont think this is all related with CKD. She has Depression and ? gastroparesis also making this worse. also Pl effusion with vol Overload. She wants to do In center HD when needed Did discuss this with patient and her daughter and in agreement. Demadex was on hold for few days. However did restart 11/07 as she does need Diuretics given Pl eff from CKD and vol overload. Stop Kcl. daily renal panel. labs today Creat up a bit to 3.9 now. Continued rise of creat now for almost a week now. If creat gets higher than 4 will also start hemodialysis. at this rate she will be in need of PAY CLERK in next few days. will keep her inpt with the plan for tunnelled HD cath on Monday and start hemodialysis as inpt. No need of emergent dialysis during the weekend will place AVF-- [facility]. Seen by Dr Dubois--vein mapping and assessment done. She will have AVF surgery within next 1-2 weeks as outpt 3) Hyperkalemia: Difficult situation given she has had both super low and also high K. partly because of No food intake making it difficult. k is 4.2 today. stop kcl 10 meq S----Patient feels better she is now on room air blood pressure is normal now. She is making urine. Renal Function is worsening on a daily basis. Physical Exam Physical Exam: General- Not in distress Head- atraumatic ENT- oropharynx clear Neck- supple, no JVD. Lungs- Decreased breath sound at bilateral lung bases Heart- regular rate and rhythm; no murmur, no gallop. Abdomen- normal bowel sounds, soft, nontender, no distension. Extremities- no edema, no erythema seen. Neuro- alert, oriented PERRL, no facial palsy; no dysarthria; moves extremities. Results & Data Vital Signs (Past 12 Hours) Vital Signs Temp Pulse Resp BP Pulse Ox O2 Del Method 11/10/23 07:13 36.9 C 83 18 133/67 93 Room Air 11/10/23 02:51 36.9 C 85 18 131/75 93 Room Air 11/09/23 22:41 36.7 C 88 18 130/61 92 Room Air PG Care Time/CCT Total # of Minutes Spent Total Time Spent with Patient: Total time spent is greater than 50% in coordination of care (as documented) at patient's floor/unit and/or counseling patient: Coding Level of Care Code 77754 SUB INP/OBS CARE 2/35MIN
--- NOTE | 2023-11-10 10:59 | XRay Report ---
XR chest 2V PA/lateral HISTORY: 73 years-old Female f/u Pl effusion follow-up study in a patient with pleural effusions COMPARISON: 11/07/2023 TECHNIQUE: AP view of the chest FINDINGS: Cardiomediastinal and hilar silhouettes are within normal limits. No pneumothorax. Small left pleural effusion with mild left basilar densities, unchanged. Bones appear grossly intact. IMPRESSION: 1. Unchanged small left pleural effusion with mild left basilar opacities. 2. No pneumothorax identified. ACT 112: Negative or not required by law. The above report was generated using voice recognition software. It may contain grammatical, syntax o r spelling errors. Electronically signed by: Wander Donohue M.D. 11/10/2023 10:58 AM
--- NOTE | 2023-11-10 15:52 | Hospitalist Progress Note ---
Date of Service November 10, 2023 Assessment & Plan (1) Acute hypoxemic respiratory failure: (2) Acute kidney injury superimposed on chronic kidney disease: Plan: (1) Acute hypoxemic respiratory failure: (2) Pleural effusion: (3) Acute kidney injury superimposed on chronic kidney disease: Plan: Per previous hospitalist notes with addendum: 73-year-old female with past medical history significant for type 2 diabetes, hyperlipidemia, obesity, CKD stage IV, history of recurrent major depression, vertigo, history of double vision, nystagmus, currently living at assisted living comes because of shortness of breath. Patient states shortness going on for last couple of weeks but getting progressively worsened. Patient Was Admitted in Early September with KAVITA and Metabolic Acidosis and Confusion. Confusion Thought to Be from Renal Uremia and Possible Untreated Sleep Apnea. She Was on Lokelma in the past but Because of Her Outpatient Labs Showed Hypokalemia Lokelma Was Stopped and Currently She is on Potassium Supplement s. Acute hypoxic respiratory failure Bilateral pleural effusion (left> right) status post pigtail chest tube placement on 11/02/2023, removed on 11/03/2023 Possible Pneumonia, ruled out Patient presents with shortness of breath which is progressive increasing worse Chest x-ray on admission personally reviewed; interval development of moderate to large left pleural effusion with associated airspace opacity. CT chest shows bilateral pleural effusion(left greater than right) Pleural fluid showed transudate pattern Gram stain negative Cytology negative for malignancy CXR from 11/04- improvement in pleural effusion Pleural effusion likely secondary to volume overload due to CKD. Discussed with pulmonology. was initially diuresed with torsemide 80 mg once a day; currently on hold due to rising creatinine 11/09 Stable on room air Demand Ischemia EKG Personally reviewed; normal sinus rhythm. High since troponin 67, 63 Echocardiogram shows EF of 55 to 60% with grade 1 diastolic dysfunction Hyperkalemia Potassium 5.7 on admission was on potassium supplement due to hypokalemia Monitor BMP Potassium 4.2 KAVITA on CKD Stage IV Presented Creatinine of 2.7 Which Seems to Be around Baseline Creatinine rising; Nephrology on board. Discussed with nephrology; continue to monitor creatinine inpatient. Patient might need dialysis in near future. Creatinine improving, currently 3.4 Hold off on inpatient hemodialysis per nephro Vascular surgery consulted for planning of aVF Creatinine 3.6 Continue to monitor creatinine as an inpatient per nephrology service recommendation crea 3.9 Will likely initiate hemodialysis early next week as per nephrology service Hypertension Patient's blood pressure persistently elevated; on amlodipine 10 mg once a day Hydralazine increased to 100 mg 3 times a day Losartan on hold due to KAVITA on CKD. BP overall improved Type 2 Diabetes Will Hold Home Long Acting Insulin On Lantus Sliding Scale We Will Monitor Morbid Obesity Needs Counseling Sleep Apnea CPAP/Oxygen Nightly Depression on Fluoxetine Hyperlipidemia on Statin, continue GERD on Omeprazole Anemia of Chronic Disease Hemoglobin stable Will Monitor DVT Prophylaxis Heparin Subcu Disposition PT OT recommended rehab; patient continues to be hospitalized for close monitoring due to KAVITA on CKD. May need dialysis inpatient. CODE STATUS Full Code plan of care discussed with patient all questions answered she is understanding, agreeable, comfortable with the plan of care Admission and Anticipated Discharge Date Admission Date: November 01, 2023 Subjective Follow-up for pleural effusion, elevated creatinine, etc. Seen resting in bed, comfortable, no distress States she feels fine overall Denies shortness of breath, nausea no other symptoms Review of Systems Review of Systems: all noted and negative except for above Physical Exam Physical Exam: General- oriented x 3, not in distress, speaks in sentences with no effort or accessory muscle use Eyes- anicteric Neck- no JVD Lungs- clear breath sounds bilaterally, no rales/wheezes Heart- normal rate, regular rhythm; no murmurs Abdomen- normal bowel sounds, nondistended, soft, nontender Extremities- no pretibial edema, no calf tenderness Neuro- alert, oriented x 3; no gross focal neurologic deficits Skin- warm & dry Results & Data Results & Data Vital Signs (Past 12 Hours) Vital Signs Temp Pulse Resp BP Pulse Ox O2 Del Method 11/10/23 11:42 36.4 C L 77 16 153/71 H 93 Room Air 11/10/23 11:05 Room Air 11/10/23 07:13 36.9 C 83 18 133/67 93 Room Air all noted and reviewed including below
[2023-11-11 07:09] LABS: BUN Creatinine Ratio 12.7 (10-20); Calcium 9.6 mg/dl (8.6-10.3); Creatinine Clr Calc Pharmacy 13.4 ml/min; Est GFR (African American) 13.2 ml/min; Est GFR (Non-African American) 11.4 ml/min
--- NOTE | 2023-11-11 10:55 | Nephrology Progress Note ---
Date of Service November 11, 2023 Assessment & Plan (1) Hypertensive urgency: Plan: Systolic in the 160s today. Will reduce hydralazine 50 mg 3 times daily to reduce potential toxicity. Will start Coreg 6.25 mg twice daily. Continue amlodipine at current dose. -daily bmp High risk for complications of uncontrolled HTN, fluid overload, electrolyte issues in setting of acute illness w/ ESRD/CKD4 (2) CKD (chronic kidney disease) stage 4, GFR 15-29 ml/min: Plan: advanced CKD 4 /early CKD 5 > Creatinine slightly better at 3.7 today. No uremic symptoms. Will continue to monitor renal function daily. No indication for dialysis at the moment. Dialysis planning likely to be made on an outpatient basis. Patient can be placed to rehab >>will refer for ESRD options to be done [facility] once discharged (3) Hyperkalemia: Plan: K is 4 today -daily bmp Admission and Anticipated Discharge Date Admission Date: November 01, 2023 Subjective Seen for acute kidney injury on CKD. She has exertional dyspnea. No leg swelling. She is making urine and creatinine slightly downtrending Review of Systems 2 Review of Systems: All other systems were reviewed and negative except as noted in HPI Physical Exam 2 Physical Exam: General exam: Appears comfortable, no acute distress HEENT: Pupils are equal and reactive to light Neck: No JVD, neck is supple trachea is midline Respiratory system: Clear breath sounds bilaterally. Gastrointestinal: Abdomen is soft, non distended, non tender, bowel sounds are present CVS: Regular rate and rhythm. No murmurs, rubs or gallops Musculoskeletal: No joint or muscle tenderness Extremities: Non tender, no edema, peripheral pulses are present Neuro: Oriented, no tremors, no focal neurological deficits Skin: No rashes Results & Data Vital Signs (Past 12 Hours) Vital Signs Temp Pulse Resp BP Pulse Ox O2 Del Method 11/11/23 07:17 36.6 C 100 H 18 168/70 H 95 Room Air 11/11/23 02:57 37.1 C 85 16 120/61 92 Room Air 11/10/23 23:00 36.6 C 88 18 134/57 L 92 Room Air Laboratory Results 11/11/23 05:55
[2023-11-11] MEDS: hydrALAZINE TAB 50 MG TAB PO SCH (14:37)
[2023-11-11] MEDS: carvediloL 6.25 MG TAB PO SCH (17:45)
--- NOTE | 2023-11-11 17:46 | Hospitalist Progress Note ---
Date of Service November 11, 2023 Assessment & Plan (1) Acute hypoxemic respiratory failure: (2) Acute kidney injury superimposed on chronic kidney disease: Plan: (1) Acute hypoxemic respiratory failure: (2) Pleural effusion: (3) Acute kidney injury superimposed on chronic kidney disease: Plan: Per previous hospitalist notes with addendum: 73-year-old female with past medical history significant for type 2 diabetes, hyperlipidemia, obesity, CKD stage IV, history of recurrent major depression, vertigo, history of double vision, nystagmus, currently living at assisted living comes because of shortness of breath. Patient states shortness going on for last couple of weeks but getting progressively worsened. Patient Was Admitted in Early September with KAVITA and Metabolic Acidosis and Confusion. Confusion Thought to Be from Renal Uremia and Possible Untreated Sleep Apnea. She Was on Lokelma in the past but Because of Her Outpatient Labs Showed Hypokalemia Lokelma Was Stopped and Currently She is on Potassium Supplement s. Acute hypoxic respiratory failure Bilateral pleural effusion (left> right) status post pigtail chest tube placement on 11/02/2023, removed on 11/03/2023 Possible Pneumonia, ruled out Patient presents with shortness of breath which is progressive increasing worse Chest x-ray on admission personally reviewed; interval development of moderate to large left pleural effusion with associated airspace opacity. CT chest shows bilateral pleural effusion(left greater than right) Pleural fluid showed transudate pattern Gram stain negative Cytology negative for malignancy CXR from 11/04- improvement in pleural effusion Pleural effusion likely secondary to volume overload due to CKD. Discussed with pulmonology. was initially diuresed with torsemide 80 mg once a day; currently on hold due to rising creatinine 11/10 Stable on room air Demand Ischemia EKG Personally reviewed; normal sinus rhythm. High since troponin 67, 63 Echocardiogram shows EF of 55 to 60% with grade 1 diastolic dysfunction Hyperkalemia Potassium 5.7 on admission was on potassium supplement due to hypokalemia Monitor BMP Potassium 4.2 KAVITA on CKD Stage IV Presented Creatinine of 2.7 Which Seems to Be around Baseline Creatinine rising; Nephrology on board. Discussed with nephrology; continue to monitor creatinine inpatient. Patient might need dialysis in near future. Creatinine improving, currently 3.4 Hold off on inpatient hemodialysis per nephro Vascular surgery consulted for planning of aVF Creatinine 3.6 Continue to monitor creatinine as an inpatient per nephrology service recommendation crea 3.9-->3.7 Will likely initiate hemodialysis early next week as per nephrology service Hypertension Patient's blood pressure persistently elevated; on amlodipine 10 mg once a day Hydralazine increased to 100 mg 3 times a day Losartan on hold due to KAVITA on CKD. BP overall improved Type 2 Diabetes Will Hold Home Long Acting Insulin On Lantus Sliding Scale We Will Monitor Morbid Obesity Needs Counseling Sleep Apnea CPAP/Oxygen Nightly Depression on Fluoxetine Hyperlipidemia on Statin, continue GERD on Omeprazole Anemia of Chronic Disease Hemoglobin stable Will Monitor DVT Prophylaxis Heparin Subcu Disposition PT OT recommended rehab; patient continues to be hospitalized for close monitoring due to KAVITA on CKD. May need dialysis inpatient. CODE STATUS Full Code plan of care discussed with patient all questions answered she is understanding, agreeable, comfortable with the plan of care Admission and Anticipated Discharge Date Admission Date: November 01, 2023 Subjective ff up for acute renal failure on CKD 4, etc seen resting in bed, comfortable feels tired no nausea, SOB no other symptoms Review of Systems Review of Systems: all noted and negative except for above Physical Exam Physical Exam: General- oriented x 3, not in distress, speaks in sentences with no effort or accessory muscle use Eyes- anicteric Neck- no JVD Lungs- clear breath sounds bilaterally, no rales/wheezes Heart- normal rate, regular rhythm; no murmurs Abdomen- normal bowel sounds, nondistended, soft, nontender Extremities- no pretibial edema, no calf tenderness Neuro- alert, oriented x 3; no gross focal neurologic deficits Skin- warm & dry Results & Data Results & Data Vital Signs (Past 12 Hours) Vital Signs Temp Pulse Resp BP BP Pulse Ox O2 Del Method 11/11/23 15:24 37.1 C 86 16 125/63 93 Room Air 11/11/23 11:16 36.6 C 87 18 127/66 94 Room Air 11/11/23 07:17 36.6 C 100 H 18 168/70 H 95 Room Air all noted and reviewed including below
[2023-11-12 06:48] LABS: BUN Creatinine Ratio 13.6 (10-20); Calcium 9.6 mg/dl (8.6-10.3); Creatinine Clr Calc Pharmacy 13.7 ml/min; Est GFR (African American) 13.7 ml/min; Est GFR (Non-African American) 11.8 ml/min; Potassium 3.9 mmol/L (3.5-5.1)
--- NOTE | 2023-11-12 11:53 | Nephrology Progress Note ---
Date of Service November 12, 2023 Assessment & Plan (1) Hypertensive urgency: Plan: Systolic in the 120s today. Will reduce hydralazine 25 mg 3 times daily to reduce potential toxicity. Will start Coreg 6.25 mg twice daily. Continue amlodipine at current dose. -daily bmp High risk for complications of uncontrolled HTN, fluid overload, electrolyte issues in setting of acute illness w/ ESRD/CKD4 (2) CKD (chronic kidney disease) stage 4, GFR 15-29 ml/min: Plan: advanced CKD 4 /early CKD 5 > Creatinine slightly better at 3.6 today. No uremic symptoms. Will continue to monitor renal function daily. No indication for dialysis at the moment. Dialysis planning likely to be made on an outpatient basis. Patient can be placed to rehab >>will refer for ESRD options to be done [facility] once discharged (3) Hyperkalemia: Plan: K is 3.9 today -daily bmp Admission and Anticipated Discharge Date Admission Date: November 01, 2023 Subjective Seen for acute kidney injury on CKD. Main complaint is weakness. No shortness of breath or leg swelling. Daughter at the bedside. Review of Systems 2 Review of Systems: All other systems were reviewed and negative except as noted in HPI Physical Exam 2 Physical Exam: General exam: Appears comfortable, no acute distress HEENT: Pupils are equal and reactive to light Neck: No JVD, neck is supple trachea is midline Respiratory system: Clear breath sounds bilaterally. Gastrointestinal: Abdomen is soft, non distended, non tender, bowel sounds are present CVS: Regular rate and rhythm. No murmurs, rubs or gallops Musculoskeletal: No joint or muscle tenderness Extremities: Non tender, no edema, peripheral pulses are present Neuro: Oriented, no tremors, no focal neurological deficits Skin: No rashes Results & Data Vital Signs (Past 12 Hours) Vital Signs Temp Pulse Resp BP BP Pulse Ox O2 Del Method 11/12/23 11:36 36.6 C 69 19 116/56 L 94 Room Air 11/12/23 07:59 36.8 C 86 19 145/74 H 95 Room Air 11/12/23 02:28 36.8 C 86 20 144/71 H 93 Room Air Laboratory Results 11/12/23 05:47
[2023-11-12] MEDS: hydrALAZINE HCL 25 MG TAB PO SCH (14:50)
--- NOTE | 2023-11-12 16:59 | Hospitalist Progress Note ---
Date of Service November 12, 2023 Assessment & Plan (1) Acute hypoxemic respiratory failure: (2) Acute kidney injury superimposed on chronic kidney disease: Plan: (1) Acute hypoxemic respiratory failure: (2) Pleural effusion: (3) Acute kidney injury superimposed on chronic kidney disease: Plan: Per previous hospitalist notes with addendum: 73-year-old female with past medical history significant for type 2 diabetes, hyperlipidemia, obesity, CKD stage IV, history of recurrent major depression, vertigo, history of double vision, nystagmus, currently living at assisted living comes because of shortness of breath. Patient states shortness going on for last couple of weeks but getting progressively worsened. Patient Was Admitted in Early September with KAVITA and Metabolic Acidosis and Confusion. Confusion Thought to Be from Renal Uremia and Possible Untreated Sleep Apnea. She Was on Lokelma in the past but Because of Her Outpatient Labs Showed Hypokalemia Lokelma Was Stopped and Currently She is on Potassium Supplement s. Acute hypoxic respiratory failure Bilateral pleural effusion (left> right) status post pigtail chest tube placement on 11/02/2023, removed on 11/03/2023 Possible Pneumonia, ruled out Patient presents with shortness of breath which is progressive increasing worse Chest x-ray on admission personally reviewed; interval development of moderate to large left pleural effusion with associated airspace opacity. CT chest shows bilateral pleural effusion(left greater than right) Pleural fluid showed transudate pattern Gram stain negative Cytology negative for malignancy CXR from 11/04- improvement in pleural effusion Pleural effusion likely secondary to volume overload due to CKD. Discussed with pulmonology. was initially diuresed with torsemide 80 mg once a day; currently on hold due to rising creatinine 11/11 Stable on room air Demand Ischemia EKG Personally reviewed; normal sinus rhythm High since troponin 67, 63 Echocardiogram shows EF of 55 to 60% with grade 1 diastolic dysfunction Hyperkalemia Potassium 5.7 on admission was on potassium supplement due to hypokalemia Potassium 3.9 KAVITA on CKD Stage IV Presented Creatinine of 2.7 Which Seems to Be around Baseline Creatinine rising; Nephrology on board. Discussed with nephrology; continue to monitor creatinine inpatient. Patient might need dialysis in near future. Creatinine improving, currently 3.4 Hold off on inpatient hemodialysis per nephro Vascular surgery consulted for planning of aVF Creatinine 3.6 Continue to monitor creatinine as an inpatient per nephrology service recommendation crea 3.9-->3.7--> 3.6 patient and daughter requesting to further discuss next steps with Dr. Bell tomorrow Hypertension Patient's blood pressure persistently elevated; on amlodipine 10 mg once a day Hydralazine increased to 100 mg 3 times a day Losartan on hold due to KAVITA on CKD. BP overall improved Type 2 Diabetes Will Hold Home Long Acting Insulin On Lantus Sliding Scale We Will Monitor Morbid Obesity Needs Counseling Sleep Apnea CPAP/Oxygen Nightly Depression on Fluoxetine Hyperlipidemia on Statin, continue GERD on Omeprazole Anemia of Chronic Disease Hemoglobin stable Will Monitor DVT Prophylaxis Heparin Subcu Disposition PT OT recommended rehab; patient continues to be hospitalized for close monitoring due to KAVITA on CKD. May need dialysis inpatient. CODE STATUS Full Code plan of care discussed with patient all questions answered she is understanding, agreeable, comfortable with the plan of care Admission and Anticipated Discharge Date Admission Date: November 01, 2023 Subjective Follow-up for acute on CKD, etc. Seen resting in bed, comfortable Still feels tired, but no shortness of breath, nausea vomiting, itching, confusion No other new symptom Review of Systems Review of Systems: all noted and negative except for above Physical Exam Physical Exam: General- oriented x 3, not in distress, speaks in sentences with no effort or accessory muscle use Eyes- anicteric Neck- no JVD Lungs- clear breath sounds bilaterally, no crackles or wheezing Heart- normal rate, regular rhythm; no murmurs Abdomen- normal bowel sounds, nondistended, soft, no tenderness Extremities- no pretibial edema, no calf tenderness Neuro- alert, oriented x 3; no gross focal neurologic deficits Skin- warm & dry Results & Data Results & Data Vital Signs (Past 12 Hours) Vital Signs Temp Pulse Resp BP BP Pulse Ox O2 Del Method 11/12/23 16:07 37.2 C 74 18 142/72 H 93 Room Air 11/12/23 11:36 36.6 C 69 19 116/56 L 94 Room Air 11/12/23 07:59 36.8 C 86 19 145/74 H 95 Room Air all noted and reviewed including below
[2023-11-13 06:44] LABS: BUN Creatinine Ratio 14.8 (10-20); Creatinine Clr Calc Pharmacy 12.2 ml/min; Est GFR (African American) 11.8 ml/min; Est GFR (Non-African American) 10.2 ml/min; Potassium 3.8 mmol/L (3.5-5.1)
--- NOTE | 2023-11-13 08:57 | Nephrology Progress Note ---
Date of Service November 13, 2023 Assessment & Plan (1) End stage renal disease: Plan: formerly CKD 4 progressing consistently to CKD 5, now ESRD Multiple BL renal cysts on imaging; hx of stone as well. No florid uremic sx today; but we have had volume OL requiring chest tube placement, life threatening dyskalemia, HTN urgency repeatedly in past weeks. Creatinine up to 4.1 today; running high 3s; SBP has been controlled recently. No indication for dialysis today but need to move ahead w/ dialysis initiation/planning . >>completed ESRD Options earlier this admission >>for incenter HD at [facility] when need arises >has seen vascular this admission and AVF creation planning in process >>>proceed w/ TDC placement this admission and at least one tx of HD before d/c to rehab; did d/w pt and daughter and they are in agreement care coordinated w/ vascular and hospitalist teams regarding timing of dialysis start; we are in agreement High risk for complications of uncontrolled HTN, fluid overload, electrolyte issues in setting of acute illness w/ ESRD (2) Hyperkalemia: Plan: K is 3.8 today; controlled w/o K supplements currently but needs close monitoring; hx of dyskalemia repeatedly past 4-6 wks -daily bmp (3) Hypertensive urgency: Plan: Resolved; well controlled since about 11/05.Systolic in the 120s today. Will further reduce hydralazine to 25 mg bid from tid to reduce potential toxicity. cont Coreg 6.25 mg twice daily. Continue amlodipine, torsemide at current dose. -daily bmp Admission and Anticipated Discharge Date Admission Date: November 01, 2023 Subjective no sob, no n/v; lying flat on RA; had breakfast today w/o issues/concerns. daughter at bedside Review of Systems 2 Review of Systems: All systems reviewed & are unremarkable except as noted in Subjective Physical Exam 2 Constitutional: well developed, well nourished, + obese, + frail appearing and cooperative; no acute distress Eyes: EOM intact bilaterally ENMT: Ears: no external ear abnormality Nose: no external nose abnormality Mouth: + dry oral mucous membranes Neck: no nuchal rigidity Respiratory: normal respiratory effort (lying flat on RA) Auscultation: + diminished lung sounds Cardiovascular: Rate/Rhythm: regular rate and regular rhythm Extremities: + edema (trace); no AV fistula Gastrointestinal (Abdomen): Inspection/Auscultation: normal bowel sounds P ercussion/Palpation: abdomen soft; abdomen nontender Musculoskeletal: Extremities: strength 5/5 throughout Skin: no rashes, warm and dry Psychiatric: Orientation: alert and oriented x 3 Speech: normal rate/rhythm/volume of speech (or very slightly slowed) Affect: + flat affect Results & Data Vital Signs (Past 12 Hours) Vital Signs Temp Pulse Pulse Resp BP Pulse Ox O2 Del Method 11/13/23 08:03 36.9 C 71 17 132/68 90 Room Air 11/13/23 03:31 37.0 C 65 16 122/65 93 Room Air 11/12/23 23:09 36.6 C 64 16 111/57 L 92 Room Air 11/12/23 23:01 75 Laboratory Results 11/08/23 05:37 11/13/23 05:59
--- NOTE | 2023-11-13 19:21 | Hospitalist Progress Note ---
Date of Service November 13, 2023 delayed entry date of service noted above Assessment & Plan (1) Acute hypoxemic respiratory failure: (2) Acute kidney injury superimposed on chronic kidney disease: Plan: (1) Acute hypoxemic respiratory failure: (2) Pleural effusion: (3) Acute kidney injury superimposed on chronic kidney disease: Plan: Per previous hospitalist notes with addendum: 73-year-old female with past medical history significant for type 2 diabetes, hyperlipidemia, obesity, CKD stage IV, history of recurrent major depression, vertigo, history of double vision, nystagmus, currently living at assisted living comes because of shortness of breath. Patient states shortness going on for last couple of weeks but getting progressively worsened. Patient Was Admitted in Early September with KAVITA and Metabolic Acidosis and Con fusion. Confusion Thought to Be from Renal Uremia and Possible Untreated Sleep Apnea. She Was on Lokelma in the past but Because of Her Outpatient Labs Showed Hypokalemia Lokelma Was Stopped and Currently She is on Potassium Supplements. Acute hypoxic respiratory failure Bilateral pleural effusion (left> right) status post pigtail chest tube placement on 11/02/2023, removed on 11/03/2023 Possible Pneumonia, ruled out Patient presents with shortness of breath which is progressive increasing worse Chest x-ray on admission personally reviewed; interval development of moderate to large left pleural effusion with associated airspace opacity. CT chest shows bilateral pleural effusion(left greater than right) Pleural fluid showed transudate pattern Gram stain negative Cytology negative for malignancy CXR from 11/04- improvement in pleural effusion Pleural effusion likely secondary to volume overload due to CKD. Discussed with pulmonology. was initially diuresed with torsemide 80 mg once a day; currently on hold due to rising creatinine 11/12 Stable on room air Demand Ischemia EKG Personally reviewed; normal sinus rhythm High since troponin 67, 63 Echocardiogram shows EF of 55 to 60% with grade 1 diastolic dysfunction Hyperkalemia Potassium 5.7 on admission was on potassium supplement due to hypokalemia Potassium Stable KAVITA on CKD Stage IV Presented Creatinine of 2.7 Which Seems to Be around Baseline Creatinine rising; Nephrology on board. Discussed with nephrology; continue to monitor creatinine inpatient. Patient might need dialysis in near future. Creatinine improving, currently 3.4 Hold off on inpatient hemodialysis per nephro Vascular surgery consulted for planning of aVF Creatinine 3.6 Continue to monitor creatinine as an inpatient per nephrology service recommendation christian 3.9-->3.7--> 3.6 11/12 Plan for PermCath placement tomorrow And initiation of hemodialysis after Hypertension Patient's blood pressure persistently elevated; on amlodipine 10 mg once a day Hydralazine increased to 100 mg 3 times a day Losartan on hold due to KAVITA on CKD. BP overall improved Type 2 Diabetes Will Hold Home Long Acting Insulin On Lantus Sliding Scale We Will Monitor Morbid Obesity Needs Counseling Sleep Apnea CPAP/Oxygen Nightly Depression on Fluoxetine Hyperlipidemia on Statin, continue GERD on Omeprazole Anemia of Chronic Disease Hemoglobin stable Will Monitor DVT Prophylaxis Heparin Subcu Disposition PT OT recommended rehab; patient continues to be hospitalized for close monitoring due to KAVITA on CKD. May need dialysis inpatient. CODE STATUS Full Code Admission and Anticipated Discharge Date Admission Date: November 01, 2023 Subjective Follow-up for CKD, etc. Sleeping soundly, no signs of distress Discussed with RN Feels tired but otherwise no other issues Review of Systems Review of Systems: all noted and negative except for above Physical Exam Physical Exam: patient sleeping soundly Results & Data Results & Data Vital Signs (Past 12 Hours) Vital Signs Temp Pulse Pulse Pulse Resp BP Pulse Ox 11/13/23 15:00 36.5 C 88 18 136/69 96 11/13/23 14:15 64 11/13/23 11:45 36.4 C 65 17 138/61 95 11/13/23 10:51 69 11/13/23 08:03 36.9 C 71 17 132/68 90 O2 Del Method 11/13/23 15:00 Room Air 11/13/23 14:15 11/13/23 11:45 Room Air 11/13/23 10:51 11/13/23 08:03 Room Air all noted and reviewed including below
[2023-11-14] MEDS: traMADol HCL 50 MG TABLET PO PRN (05:34)
[2023-11-14 07:56] LABS: BUN Creatinine Ratio 15.6 (10-20); Calcium 9.1 mg/dl (8.6-10.3); Creatinine Clr Calc Pharmacy 12.5 ml/min; Est GFR (African American) 12.1 ml/min; Est GFR (Non-African American) 10.4 ml/min; Potassium 3.5 mmol/L (3.5-5.1)
--- NOTE | 2023-11-14 08:13 | History & Physical Bridge Note ---
Date of Service November 14, 2023 History & Physical Bridge Note Patient for insertion of permcath today. I have discussed the risks options and benefits of the procedure with the patient. The patient understands the risks options and benefits and agrees to the procedure. I have examined the patient, reviewed the History & Physical and in the interval since the performance of the History & Physical I have noted the following changes of clinical significance: no changes noted
--- NOTE | 2023-11-14 08:56 | Pre Anesthesia Assessment ---
Date of Service November 14, 2023 Pre Sedation Assessment Vital Signs Temp Pulse Pulse Pulse Resp BP Pulse Ox 11/14/23 08:52 63 20 148/82 H 98 11/14/23 02:55 36.5 C 70 16 121/68 92 11/14/23 01:48 73 11/13/23 22:50 37.3 C 68 18 109/61 95 11/13/23 21:00 11/13/23 19:15 36.7 C 84 22 151/75 H 94 11/13/23 15:00 36.5 C 88 18 136/69 96 11/13/23 14:15 64 11/13/23 11:45 36.4 C 65 17 138/61 95 11/13/23 10:51 69 O2 Del Method O2 Flow Rate 11/14/23 08:52 Oxymask 4 11/14/23 02:55 Room Air 11/14/23 01:48 11/13/23 22:50 Room Air 11/13/23 21:00 Room Air 11/13/23 19:15 Room Air 11/13/23 15:00 Room Air 11/13/23 14:15 11/13/23 11:45 Room Air 11/13/23 10:51 Cardiovascular RRR, no murmur, no edema Respiratory normal respiratory effort, lungs clear to auscultation Pre-Sedation Airway Assessment Smoking Status: Never smoker Hx Sleep Apnea: Yes Short, Thick Neck: No Thyromental Distance: > or= 3.5 Finger Breadths Oral Cavity: + WNL Mallampati Class: II ASA: ASA4 NPO Status Date of Last Intake of Fluids: 11/13/23 Time of Last Intake of Fluids: 22:30 Date of Last Intake of Solid Food: 11/13/23 Time of Last Intake of Solid Foods: 18:00 Procedure Planning Contraindications for Sedation: none Current Medications Reviewed: Yes Notes The planned sedation has been discussed with the patient. Informed Consent was obtained. I have identified the patient, determined the appropriateness of sedation and have assessed the patient immediately prior to the procedure. All medicine(s) and interventions are by my order.
[2023-11-14] MEDS: MIDAZOLAM HCL 1 MG/ML 2ML VIAL ONE (08:57)
[2023-11-14] MEDS: fentaNYL citrate PF 100 MCG/2 ML VIAL ONE (08:57)
[2023-11-14] MEDS: ceFAZolin 2000MG 2,000 MG/15 ML SYR IV ONE (09:15)
--- NOTE | 2023-11-14 09:17 | Operative Report ---
Post Operative Report Pre & Post Diagnosis Operation Date: 11/14/23 10:20 Pre-Op Diagnosis: End Stage Renal Disease Post-Op Diagnosis: End Stage Renal Disease I identified the patient and participated in the time-out.: Yes Procedure Operation Date: 11/14/23 10:20 Actual Procedures p Perm Catheter Insertion, Right Internal Jugular Approach, Ultrasound Localiz ation of Right Interal Jugular Vein, Fluroscopy for Positioning, Moderate Sedation [id number](Right) - Eduin Dubois MD Surgeon Eduin Dubois MD Complex Care Nurse none Estimated Blood Loss 5 Findings Consistent with Post-Op Diagnosis Specimens none Anesthesia Type RN Sedation Complications none Disposition Accompanied Patient To Recovery: No Disposition: Recovery Room Indications This is a 73-year-old female with chronic renal disease in need of dialysis. She has no fistula in place. A PermCath was recommended. I have discussed the risks options and benefits of the procedure with the patient. The patient understands the risks options and benefits and agrees to the procedure. Description of Procedure Patient was taken to the angio suite and placed in the supine position. The right side of the neck and chest wall were prepped and draped in a sterile manner. The patient was identified and a timeout performed. Local anesthesia was then administered to the appropriate areas of the neck and chest wall. Ultrasound was then used to locate the right internal jugular vein. The vein compressed easily, had no filing defects, and was patent. The vein was then punctured under direct ultrasound imaging. A guidewire was then passed centrally under fluoroscopic imaging. A stab wound was then made in the anterior chest wall and a 19 cm permcath was passed from the stab wound on the chest wall to the puncture site on the neck. The puncture site was then dilated till the 14Fr peel away sheath was inserted. The permcath was then inserted through the sheath to a central position in the distal superior vena cava. The peel away sheath was then removed. The catheter was then sutured in place using nylon sutures. The puncture was then closed using a 4-0 Vicryl subcuticular suture. Dermabond was used for a dressing on the puncture site. Both ports aspirated and flushed easily and were then packed with heparin. A sterile dressing was applied to the catheter. The patient left the operation room in satisfactory condition and tolerated the procedure well. All needle and sponge counts were correct at the end of the procedure. I attest to the content of the Intraoperative Record and any orders documented therein. Any exceptions are noted below.
[2023-11-14] MEDS: LIDOCAINE 1% LOCAL 20 ML VIAL ONE (09:18)
[2023-11-14] MEDS: HEPARIN SOD (PORCINE) 5,000 UNITS/ML VIAL ONE (09:19)
--- NOTE | 2023-11-14 09:24 | Post Anesthesia Assessment ---
Date of Service November 14, 2023 Post Sedation Assessment Vital Signs Temp Pulse Pulse Pulse Resp BP Pulse Ox 11/14/23 09:11 57 L 18 110/64 98 11/14/23 09:10 58 L 16 128/95 98 11/14/23 09:05 58 L 18 125/63 98 11/14/23 09:00 59 L 14 143/72 H 99 11/14/23 08:55 60 18 138/74 98 11/14/23 08:52 63 20 148/82 H 98 11/14/23 02:55 36.5 C 70 16 121/68 92 11/14/23 01:48 73 11/13/23 22:50 37.3 C 68 18 109/61 95 11/13/23 21:00 11/13/23 19:15 36.7 C 84 22 151/75 H 94 11/13/23 15:00 36.5 C 88 18 136/69 96 11/13/23 14:15 64 11/13/23 11:45 36.4 C 65 17 138/61 95 11/13/23 10:51 69 O2 Del Method O2 Flow Rate 11/14/23 09:11 Oxymask 4 11/14/23 09:10 Oxymask 4 11/14/23 09:05 Oxymask 4 11/14/23 09:00 Oxymask 4 11/14/23 08:55 Oxymask 4 11/14/23 08:52 Oxymask 4 11/14/23 02:55 Room Air 11/14/23 01:48 11/13/23 22:50 Room Air 11/13/23 21:00 Room Air 11/13/23 19:15 Room Air 11/13/23 15:00 Room Air 11/13/23 14:15 11/13/23 11:45 Room Air 11/13/23 10:51 Recovery Score Activity: Moves 4 extremities Respiration: Deep Breath/Cough Circulation: +/-20% PreAnes Value Consciousness: Arouseable (by name) Oxygen Saturation: O2 needed for >90% Post Anesthesia Score: 8 Discharge Sedation Level of Care: Fast Track Phase II Post Sedation Plan On clinical assessment, the patient appears to have tolerated the sedation without complications. Patient is recovering as anticipated. Patient will continue to be monitored by nursing and may be discharged when sedation discharge criteria are met per below protocol. Upon Completions of procedure up to 15 minutes continue every 5 minute vital signs and the P.A.R. score; then discharge to a Phase I or Fast Track to Phase II per the following guidelines: * Discharge Patient to appropriate Phase II area if PAR is 8 or greater or return to pre- procedure baseline. The post - procedure orders will be as directed. * If PAR score is less than 8 or not return to pre-procedure baseline then patient will follow Phase I monitoring till PAR is reached for Phase II. The Phase I may be done in procedure room or may call to secure a Phase I area. * If naloxone or flumazenil are used for reversal, hold in Phase I for continued monitoring from when last reversal dose was given for a minimum of 60 minutes or longer pending the nurse and/or physician discretion of patient condition before discharge to Phase II. Please call the Sedation Physician to re-evaluate and complete post-note for discharge to Phase II area. Do NOT discharge from procedure sedation or Phase 1 until post- sedation evaluation note is complete by procedure /sedation MD Sedation Discharge Instructions to be given to the patient at discharge to home.
[2023-11-14] MEDS: ceFAZolin 330 MG/ML 1 GM VIAL ONE (10:36)
[2023-11-14] MEDS ORDERED: SODIUM CHLORIDE 0.9% 1,000 ML IV PRN (11:47)
--- NOTE | 2023-11-14 14:53 | Nephrology Progress Note ---
Date of Service November 14, 2023 Assessment & Plan (1) End stage renal disease: Plan: formerly CKD 4 progressing consistently to CKD 5, now ESRD Multiple BL renal cysts on imaging; hx of stone as well. No florid uremic sx today; but we have had volume OL requiring chest tube placement, life threatening dyskalemia, HTN urgency repeatedly in past weeks. Creatinine plateau'd at 4 today; running high 3s; SBP has been controlled recently. No indication for dialysis today but need to move ahead w/ dialysis initiation/planning . >>completed ESRD Options earlier this admission [facility] >has seen vascular this admission and AVF creation planning in process >>got TDC 11/13 and first tx same day >plan 2-3 txs this week depending on bed availability at [facility] >> if bed available tomorrow she could go and have tx there on 11/16 >>continue efforts to avoid dialysis dysequilibrium by managing bp meds, careful/slow start to dialysis w/ gradually increasing intensity of txs High risk for complications of uncontrolled HTN, fluid overload, electrolyte issues in setting of acute illness w/ ESRD (2) Hyperkalemia: Plan: K is 3.8 today; controlled w/o K supplements currently but needs close monitoring; hx of dyskalemia repeatedly past 4-6 wks -daily bmp (3) Hypertensive urgency: Plan: Resolved; well controlled since about 11/05. Systolic lower today w/ anesthesia. >stop hydralazine >stop amlodipine >stop coreg for now; may resume at lower dose >cont torsemide at current dose for now -daily bmp Admission and Anticipated Discharge Date Admission Date: November 01, 2023 Subjective got TDC this am; tolerated procedure well. denies pain at site or elsewhere; denies orthopnea, n/v, sob, uncontrolled edema Review of Systems 2 Review of Systems: All systems reviewed & are unremarkable except as noted in Subjective Physical Exam 2 Constitutional: well developed (lying flat on 02 in bed), well nourished, + morbidly obese, + obese, + frail appearing and cooperative; no acute distress Eyes: EOM intact bilaterally ENMT: Ears: no external ear abnormality Nose: no external nose abnormality Mouth: + dry oral mucous membranes Neck: no nuchal rigidity Respiratory: normal respiratory effort Auscultation: + diminished lung sounds Cardiovascular: Rate/Rhythm: regular rate and regular rhythm Extremities: + edema (trace); no AV fistula Gastrointestinal (Abdomen): Inspection/Auscultation: normal bowel sounds P ercussion/Palpation: abdomen soft; abdomen nontender Musculoskeletal: Extremities: strength 5/5 throughout Skin: no rashes, warm and dry Psychiatric: Orientation: alert and oriented x 3 Speech: normal rate/rhythm/volume of speech (or very slightly slowed) Affect: + flat affect Results & Data Vital Signs (Past 12 Hours) Vital Signs Temp Pulse Pulse Pulse Resp BP BP 11/14/23 14:17 60 11/14/23 14:00 54 L 109/62 11/14/23 13:40 36.6 C 54 L 11/14/23 11:29 11/14/23 11:22 11/14/23 11:00 58 L 16 118/63 11/14/23 10:45 60 16 124/66 11/14/23 10:25 62 16 111/58 L 11/14/23 10:10 66 16 114/65 11/14/23 09:54 36.8 C 68 16 124/62 11/14/23 09:16 58 L 18 122/80 11/14/23 09:11 57 L 18 110/64 11/14/23 09:10 58 L 16 128/95 11/14/23 09:05 58 L 18 125/63 11/14/23 09:00 59 L 14 143/72 H 11/14/23 08:55 60 18 138/74 11/14/23 08:52 63 20 148/82 H 11/14/23 02:55 36.5 C 70 16 121/68 Pulse Ox O2 Del Method O2 Flow Rate 11/14/23 14:17 11/14/23 14:00 11/14/23 13:40 11/14/23 11:29 Nasal Cannula 2 11/14/23 11:22 94 2 11/14/23 11:00 95 Nasal Cannula 2 11/14/23 10:45 95 Nasal Cannula 2 11/14/23 10:25 93 Nasal Cannula 2 11/14/23 10:10 90 Room Air 11/14/23 09:54 92 Room Air 11/14/23 09:16 98 Oxymask 4 11/14/23 09:11 98 Oxymask 4 11/14/23 09:10 98 Oxymask 4 11/14/23 09:05 98 Oxymask 4 11/14/23 09:00 99 Oxymask 4 11/14/23 08:55 98 Oxymask 4 11/14/23 08:52 98 Oxymask 4 11/14/23 02:55 92 Room Air Laboratory Results 11/08/23 05:37 11/14/23 06:38
[2023-11-14 15:09] LABS: Hep B Surface Ag with confirm Negative (Negative)
[2023-11-14 15:18] LABS: Hepatitis B Surface Ab Quant < 3.00 mIU/mL (>or=10mIU/mL Immune); Hepatitis B Surface Antibody Non-Immune
[2023-11-14 15:37] LABS: Hep C Ab Rflx HepCQuant RNA Negative (Negative)
--- NOTE | 2023-11-14 17:54 | Hospitalist Progress Note ---
Date of Service November 14, 2023 Assessment & Plan (1) Acute hypoxemic respiratory failure: (2) Acute kidney injury superimposed on chronic kidney disease: Plan: (1) Acute hypoxemic respiratory failure: (2) Pleural effusion: (3) Acute kidney injury superimposed on chronic kidney disease: Plan: Per previous hospitalist notes with addendum: 73-year-old female with past medical history significant for type 2 diabetes, hyperlipidemia, obesity, CKD stage IV, history of recurrent major depression, vertigo, history of double vision, nystagmus, currently living at assisted living comes because of shortness of breath. Patient states shortness going on for last couple of weeks but getting progressively worsened. Patient Was Admitted in Early September with KAVITA and Metabolic Acidosis and Confusion. Confusion Thought to Be from Renal Uremia and Possible Untreated Sleep Apnea. She Was on Lokelma in the past but Because of Her Outpatient Labs Showed Hypokalemia Lokelma Was Stopped and Currently She is on Potassium Supplement s. Acute hypoxic respiratory failure Bilateral pleural effusion (left> right) status post pigtail chest tube placement on 11/02/2023, removed on 11/03/2023 Possible Pneumonia, ruled out Patient presents with shortness of breath which is progressive increasing worse Chest x-ray on admission personally reviewed; interval development of moderate to large left pleural effusion with associated airspace opacity. CT chest shows bilateral pleural effusion(left greater than right) Pleural fluid showed transudate pattern Gram stain negative Cytology negative for malignancy CXR from 11/04- improvement in pleural effusion Pleural effusion likely secondary to volume overload due to CKD. Discussed with pulmonology. was initially diuresed with torsemide 80 mg once a day; currently on hold due to rising creatinine 11/13 Stable on room air Demand Ischemia EKG Personally reviewed; normal sinus rhythm High since troponin 67, 63 Echocardiogram shows EF of 55 to 60% with grade 1 diastolic dysfunction Hyperkalemia Potassium 5.7 on admission was on potassium supplement due to hypokalemia Potassium Stable KAVITA on CKD Stage IV Presented Creatinine of 2.7 Which Seems to Be around Baseline Creatinine rising; Nephrology on board. Discussed with nephrology; continue to monitor creatinine inpatient. Patient might need dialysis in near future. Creatinine improving, currently 3.4 Hold off on inpatient hemodialysis per nephro Vascular surgery consulted for planning of aVF Creatinine 3.6 Continue to monitor creatinine as an inpatient per nephrology service recommendation crea 3.9-->3.7--> 3.6--> 3.9 11/13 s/p PermCath placement tomorrow For HD today Monitor closely Hypertension Patient's blood pressure persistently elevated; on amlodipine 10 mg once a day Hydralazine increased to 100 mg 3 times a day Losartan on hold due to KAVITA on CKD. BP overall improved Type 2 Diabetes Will Hold Home Long Acting Insulin On Lantus Sliding Scale We Will Monitor Morbid Obesity Needs Counseling Sleep Apnea CPAP/Oxygen Nightly Depression on Fluoxetine Hyperlipidemia on Statin, continue GERD on Omeprazole Anemia of Chronic Disease Hemoglobin stable DVT Prophylaxis Heparin Subcu [facility]position [facility] CODE STATUS Full Code Admission and Anticipated Discharge Date Admission Date: November 01, 2023 Subjective Follow-up for acute renal failure on CKD, etc. Status post PermCath placement States she feels okay, just feels tired No chest pain, shortness of breath, nausea vomiting, abdominal pain No other new symptom Review of Systems Review of Systems: all noted and negative except for above Physical Exam Physical Exam: General- oriented x 3, not in distress, speaks in sentences with no effort or accessory muscle use Eyes- anicteric Neck- no JVD Lungs- clear breath sounds bilaterally, no rales/wheezes Right chest wall: PermCath in place, no bleeding, hematoma, discharge Heart- normal rate, regular rhythm; no murmurs Abdomen- normal bowel sounds, nondistended, soft, nontender Extremities- no pretibial edema, no calf tenderness Neuro- alert, oriented x 3; no gross focal neurologic deficits Skin- warm & dry Results & Data Results & Data Vital Signs (Past 12 Hours) Vital Signs Temp Pulse Pulse Pulse Resp BP BP 11/14/23 16:05 56 L 18 121/56 L 11/14/23 15:50 36.5 C 60 140/73 11/14/23 15:30 55 L 115/66 11/14/23 15:00 55 L 115/65 11/14/23 14:30 54 L 112/57 L 11/14/23 14:17 60 11/14/23 14:00 54 L 109/62 11/14/23 13:40 36.6 C 54 L 11/14/23 11:29 11/14/23 11:22 11/14/23 11:00 58 L 16 118/63 11/14/23 10:45 60 16 124/66 11/14/23 10:25 62 16 111/58 L 11/14/23 10:10 66 16 114/65 11/14/23 09:54 36.8 C 68 16 124/62 11/14/23 09:16 58 L 18 122/80 11/14/23 09:11 57 L 18 110/64 11/14/23 09:10 58 L 16 128/95 11/14/23 09:05 58 L 18 125/63 11/14/23 09:00 59 L 14 143/72 H 11/14/23 08:55 60 18 138/74 11/14/23 08:52 63 20 148/82 H Pulse Ox O2 Del Method O2 Flow Rate 11/14/23 16:05 96 Nasal Cannula 2 11/14/23 15:50 11/14/23 15:30 11/14/23 15:00 11/14/23 14:30 11/14/23 14:17 11/14/23 14:00 11/14/23 13:40 11/14/23 11:29 Nasal Cannula 2 11/14/23 11:22 94 2 11/14/23 11:00 95 Nasal Cannula 2 11/14/23 10:45 95 Nasal Cannula 2 11/14/23 10:25 93 Nasal Cannula 2 11/14/23 10:10 90 Room Air 11/14/23 09:54 92 Room Air 11/14/23 09:16 98 Oxymask 4 11/14/23 09:11 98 Oxymask 4 11/14/23 09:10 98 Oxymask 4 11/14/23 09:05 98 Oxymask 4 11/14/23 09:00 99 Oxymask 4 11/14/23 08:55 98 Oxymask 4 11/14/23 08:52 98 Oxymask 4 all noted and reviewed including below
[2023-11-15] MEDS ORDERED: SODIUM CHLORIDE 0.9% 1,000 ML IV PRN (07:56)
[2023-11-15 08:53] LABS: Basophils # (auto) 0.07 K/uL (0.00-0.20); Basophils % (auto) 0.6 %; Eosinophils # (auto) 0.23 K/uL (0.00-0.50); Hematocrit (blood only) 25.7 % (37.0-47.0); Hemoglobin 8.2 g/dl (12.0-16.0); Immature Granulocytes # (auto) 0.11 K/uL (0.01-0.20); Lymphocytes # (auto) 1.63 K/uL (1.20-3.40); Lymphocytes % (auto) 14.3 %; Mean Corpuscular Hgb Conc 31.9 g/dL (32.0-36.0); Mean Corpuscular Volume 90.8 fL (80.0-100.0); Mean Platelet Volume 9.9 fL (9.4-12.4); Monocytes # (auto) 0.84 K/uL (0.11-0.59); Monocytes % (auto) 7.3 %; Neutrophils # (auto) 8.55 K/uL (1.40-6.50); Neutrophils % (auto) 74.8 %; Platelet Count 347 K/uL (130-400); RDW Standard Deviation 47.2 fL (36.4-46.3); Red Blood Count 2.83 M/uL (4.20-5.40); White Blood Count 11.43 K/ul (4.8-10.8)
[2023-11-15 09:03] LABS: BUN Creatinine Ratio 13.5 (10-20); Calcium 9.2 mg/dl (8.6-10.3); Creatinine Clr Calc Pharmacy 15.6 ml/min; Est GFR (African American) 15.9 ml/min; Est GFR (Non-African American) 13.7 ml/min; Potassium 3.6 mmol/L (3.5-5.1)
[2023-11-15] MEDS ORDERED: EPOETIN ALFA 10,000 UNITS in SYRINGE 0 ML IV SCH (09:30)
--- NOTE | 2023-11-15 09:37 | Hospitalist Progress Note ---
Date of Service November 15, 2023 Assessment & Plan (1) Acute hypoxemic respiratory failure: (2) Acute kidney injury superimposed on chronic kidney disease: Plan: (1) Acute hypoxemic respiratory failure: (2) Pleural effusion: (3) Acute kidney injury superimposed on chronic kidney disease: Plan: 73-year-old female with past medical history significant for type 2 diabetes, hyperlipidemia, obesity, CKD stage IV, history of recurrent major depression, vertigo, history of double vision, nystagmus, currently living at assisted living comes because of shortness of breath. Patient states shortness going on for last couple of weeks but getting progressively worsened. Patient Was Admitted in Early September with KAVITA and Metabolic Acidosis and Confusion. Confusion Thought to Be from Renal Uremia and Possible Untreated Sleep Apnea. Acute hypoxic respiratory failure Bilateral pleural effusion (left> right) status post pigtail chest tube placement on 11/02/2023, removed on 11/03/2023 Possible Pneumonia, ruled out Patient presents with shortness of breath which is progressive increasing worse Chest x-ray on admission personally reviewed; interval development of moderate to large left pleural effusion with associated airspace opacity. CT chest shows bilateral pleural effusion(left greater than right) Pleural fluid showed transudate pattern Gram stain negative Cytology negative for malignancy CXR from 11/04- improvement in pleural effusion Pleural effusion likely secondary to volume overload due to CKD. Discussed with pulmonology. on torsemide as per Nephrology KAVITA on CKD Stage IV,PermCath insertion in right IJ on November 14, 2023 Presented Creatinine of 2.7 Which Seems to Be around Baseline Creatinine increased upto 4 Patient underwent permacath insertion on right ICA First session of hemodialysis on November 15, 2023 Demand Ischemia EKG Personally reviewed; normal sinus rhythm High since troponin 67, 63 Echocardiogram shows EF of 55 to 60% with grade 1 diastolic dysfunction Hyperkalemia Potassium 5.7 on admission was on potassium supplement due to hypokalemia Potassium Stable Hypertension Patient's blood pressure persistently elevated; Hydralazine increased to 100 mg 3 times a day Losartan on hold due to KAVITA on CKD. amlodipine on hold. continue with only amlodipine at discharge. Losartan and hydralazine can be added back if BP increased further as outpatient Type 2 Diabetes Will Hold Home Long Acting Insulin On Lantus Sliding Scale We Will Monitor Morbid Obesity Needs Counseling Sleep Apnea CPAP/Oxygen Nightly Depression on Fluoxetine Hyperlipidemia on Statin, continue GERD on Omeprazole Anemia of Chronic Disease Hemoglobin stable DVT Prophylaxis Heparin Subcu [facility]position [facility] CODE STATUS Full Code Time spent evaluating patient, direct bedside care, chart review, placing orders, interpretation of diagnostic studies, discussion with consultants, patient, and family members, as well as other required patient management activities is 50 minutes Please note the above document was generated using voice recognition software. It may contain grammatical, syntax or spelling errors. Any formal questions or concerns about the content, text or information contained within the body of this dictation should be directly addressed to the provider for clarification Admission and Anticipated Discharge Date Admission Date: November 01, 2023 Subjective Patient seen and examined at bedside. Comfortable; not in distress. Denies fever, chills, chest pain, shortness of breath, abdominal pain or urinary symptoms. No significant overnight events Review of Systems Review of Systems: All systems reviewed & are unremarkable except as noted in Subjective Physical Exam Physical Exam: General- Not in distress Lungs-b/l clear breath sounds Heart- regular rate and rhythm; no murmur, no gallop. Abdomen- normal bowel sounds, soft, nontender, no distension. Extremities- no pretibial edema, no erythema seen. Neuro- alert, oriented PERRL, no facial palsy; no dysarthria; moves extremities. Results & Data Results & Data Vital Signs (Past 12 Hours) Vital Signs Temp Pulse Pulse Resp BP Pulse Ox O2 Del Method 11/15/23 09:08 56 L 11/15/23 09:08 Room Air 11/15/23 07:00 36.5 C 67 18 122/99 94 Nasal Cannula 11/15/23 02:43 36.5 C 66 18 126/65 93 Nasal Cannula 11/14/23 22:46 36.6 C 66 18 122/71 93 Nasal Cannula 11/14/23 21:58 64
--- NOTE | 2023-11-15 09:50 | Discharge Summary ---
Date of Service November 15, 2023 Admission HPI Per Admitting Provider 73-year-old female with past medical history significant for type 2 diabetes, hyperlipidemia, obesity, CKD stage IV, history of recurrent major depression, vertigo, history of double vision, nystagmus, currently living at assisted living comes because of shortness of breath. Patient states shortness going on for last couple of weeks but getting progressively worsened. She is coughing up mucus whitish color. Denies any fevers. Has some chest tightness. Sometimes she feels dizziness. Currently denies any headache. She has vision issues. No earache. Has some runny nose. No sore throat. Dry throat. Because of dry throat sometimes difficulty swallowing. She is feeling nauseous and has poor appetite for the last few days. No abdominal pain. Normal bowel and bladder movements. Has some ankle swelling. Usually ambulates with a rollator walker but lately is using mostly wheelchair. Today oxygen sats 86 Percent on RA. With oxygen supplementation Saturating Okay. Minimal Exertion Making Her Short of Breath. Daughter Is in the Room. Patient Was Admitted in Early September with KAVITA and Metabolic Acidosis and Confusion. Confusion Thought to Be from Renal Uremia and Possible Untreated Sleep Apnea. She Was on Lokelma in the past but Because of Her Outpatient Labs Showed Hypokalemia Lokelma Was Stopped and Currently She is on Potassium Supplements. past Medical History. As Mentioned above Past Surgical History. EGD. Hysterectomy. Colonoscopy. Knee Arthroscopy. Irrigation of Sphenoid Sinus. Nasal Sinus Endoscopy. Stereotactic Cranial Extradural Navigation. Social History. No Smoking. Alcohol Rarely. No Drug Use. Family History. Daughter Had Breast Cancer. Mother Had Cerebral Hemorrhage. Diabetes. Hypertension. Stroke. Father Had AAA. Admission Exam Per Admitting Provider General- Not in distress Head- atraumatic Eyes- PERRL. ENT- oropharynx clear Neck- supple, no JVD. Lungs- clear to auscultation no wheezing or crackles Heart- regular rate and rhythm; no murmur, no gallop. Abdomen- normal bowel sounds, soft, nontender, no distension. Extremities- no pretibial edema, no erythema seen. Neuro- alert, oriented PERRL, no facial palsy; no dysarthria; moves extremities. Principal Diagnosis Acute hypoxic respiratory failure Bilateral pleural effusion (left> right) status post pigtail chest tube placement on 11/02/2023, removed on 11/03/2023 Possible Pneumonia, ruled out KAVITA on CKD Stage IV,PermCath insertion in right IJ on November 14, 2023 Discharge Exam General- Not in distress Lungs-b/l clear breath sounds Heart- regular rate and rhythm; no murmur, no gallop. Abdomen- normal bowel sounds, soft, nontender, no distension. Extremities- no pretibial edema, no erythema seen. Neuro- alert, oriented PERRL, no facial palsy; no dysarthria; moves extremities. Discharge Data Allergies Allergy/AdvReac Type Severity Reaction Status Date / Time No Known Allergies Allergy Verified 11/01/23 19:45 Consultations 11/01/23 19:11 ED Decision to Admit Stat 11/02/23 08:00 Consult Nephrology Routine Consult Pulmonology Routine 11/08/23 10:59 Consult Vascular Surgery Routine Procedures Performed Operation Date: 11/14/23 10:20 Actual Procedures p Perm Catheter Insertion, Right Internal Jugular Approach, Ultrasound Localization of Right Interal Jugular Vein, Fluroscopy for Positioning, Moderate Sedation [id number](Right) - Eduin Dubois MD Ordered Studies 11/01/23 18:33 CT chest diagnostic wo con Stat 11/02/23 09:20 US point of care ultrasound Urgent 11/08/23 11:26 US venous mapping UE BI Routine 11/14/23 07:15 EV cvc insrt tunnel wo prt/physician vice president Routine US EV guide vascular access Routine Hospital Course (1) Acute hypoxemic respiratory failure: (2) Acute kidney injury superimposed on chronic kidney disease: (1) Acute hypoxemic respiratory failure: (2) Pleural effusion: (3) Acute kidney injury superimposed on chronic kidney disease: Plan: 73-year-old female with past medical history significant for type 2 diabetes, hyperlipidemia, obesity, CKD stage IV, history of recurrent major depression, vertigo, history of double vision, nystagmus, currently living at assisted living comes because of shortness of breath. Patient states shortness going on for last couple of weeks but getting progressively worsened. Patient Was Admitted in Early September with KAVITA and Metabolic Acidosis and Confusion. Confusion Thought to Be from Renal Uremia and Possible Untreated Sleep Apnea. Acute hypoxic respiratory failure Bilateral pleural effusion (left> right) status post pigtail chest tube placement on 11/02/2023, removed on 11/03/2023 Possible Pneumonia, ruled out Patient presents with shortness of breath which is progressive increasing worse Chest x-ray on admission personally reviewed; interval development of moderate to large left pleural effusion with associated airspace opacity. CT chest shows bilateral pleural effusion(left greater than right) Pleural fluid showed transudate pattern Gram stain negative Cytology negative for malignancy CXR from 11/04- improvement in pleural effusion Pleural effusion likely secondary to volume overload due to CKD. Discussed with pulmonology. On torsemide 80mg as per Nephrology on non-dialysis days KAVITA on CKD Stage IV,PermCath insertion in right IJ on November 14, 2023 Presented Creatinine of 2.7 Which Seems to Be around Baseline Creatinine increased upto 4 Patient underwent permacath insertion on right ICA First session of hemodialysis on November 15, 2023 Discharged to [facility] Demand Ischemia EKG Personally reviewed; normal sinus rhythm High since troponin 67, 63 Echocardiogram shows EF of 55 to 60% with grade 1 diastolic dysfunction Hyperkalemia Potassium 5.7 on admission was on potassium supplement due to hypokalemia Potassium Stable Potassium supplement discontinued Hypertension Patient's blood pressure persistently elevated; Discussed with Nephrology at discharge; continue with only Torsemide on non- dialysis days at discharge. Losartan, amlodipine and hydralazine can be added back if BP increased further as outpatient Type 2 Diabetes decreased dose of Lantus and aspart at discharge Please note the above document was generated using voice recognition software. It may contain grammatical, syntax or spelling errors. Any formal questions or concerns about the content, text or information contained within the body of this dictation should be directly addressed to the provider for clarification Total Time Total Time Spent Total Time Spent (In Minutes): 45 Total Time Includes: Examination of the Patient, Discharge Planning, Medication Reconciliation, Communication With Other Providers and Other Discharge Plan Discharge Items Patient Disposition: Transfer Inpatient Rehab Fac Reason For Visit: HYPOXIA, PLEURAL EFFUSION, HYPERKALEMIA Discharge Diagnosis: Acute hypoxic respiratory failure Bilateral pleural effusion (left> right) status post pigtail chest tube placement on 11/02/2023, removed on 11/03/2023 KAVITA on CKD Stage IV,PermCath insertion in right IJ on November 14, 2023 Activity: Resume your previous activity Non-emergency contact: Primary Care Provider Call non-emergency contact if: you have any medication questions and your symptoms worsen Follow-up/Referrals: Ghada Salazar MD [Primary Care Provider] - Diet: Regular Addtl Attending Provider Instructions: You were admitted here with pleural effusion; you are evaluated by pulmonology during the hospitalization. You underwent drainage of the pleural effusion. You were also started on dialysis by nephrology. Please continue dialysis at the rehab facility. Following medication changes are done: 1) the antihypertensive including amlodipine, hydralazine and losartan are currently stopped. 2) please take torsemide 80 mg on nondialysis days 3) dose of insulin glargine and lispro has been decreased; take insulin glargine 4 units daily and lispro 2 units with food. Depending on your blood pressure; the antihypertensive may need to be be placed back down. I discussed this with your denture waxer. Pending Studies at Discharge: No Stand-Alone Forms: My [facility] Skilled Items Patient informed of condition?: Yes DNR: No Discharge Level of Care: Acute rehab Communicable Disease: No Discharge Prognosis: Stable Lines: [place] Urinary Catheter: No Medications and DC Order Prescriptions: New torsemide 20 mg Tablet 80 mg PO 3XWK Qty: 60 0RF Continued aspirin 81 mg Tablet,Delayed Release (Dr/Ec) 81 mg PO QAM cyanocobalamin (vitamin B-12) [Vitamin B-12] 500 mcg Tablet 500 mcg PO QAM fluoxetine 40 mg capsule 40 mg PO QAM acetaminophen [Tylenol] 325 mg Tablet 325 mg PO Q6H PRN (Reason: Pain) omega-3 fatty acids 1,000 mg Capsule 1,000 mg PO QAM fluticasone propionate 50 mcg/actuation [place],Suspension 2 spray INTRANASAL QAM Rx Instructions: administer into each nostril rosuvastatin 10 mg tablet 10 mg PO HS cholecalciferol (vitamin D3) [Vitamin D3] 125 mcg (5,000 unit) Tablet 125 mcg PO QAM guaifenesin [Mucinex] 600 mg Tablet Extended Release 12hr 600 mg PO Q12 Qty: 10 0RF cetirizine 10 mg Tablet 10 mg PO QAM docusate sodium 100 mg Capsule 100 mg PO BID omeprazole 40 mg capsule,delayed release(DR/EC) 40 mg PO DAILYBB magnesium hydroxide [Milk of Magnesia] 400 mg/5 mL Suspension 30 ml PO DAILY PRN (Reason: Constipation) ondansetron HCl 4 mg tablet 4 mg PO Q8 PRN (Reason: Nausea) polyethylene glycol 3350 [SmoothLax] 17 gram Powder In Packet 17 g PO QAM PRN (Reason: Constipation) Rx Instructions: mix 1 packet in 8 oz of fluid and drink tramadol 50 mg tablet 50 mg PO Q6 PRN (Reason: Pain (Scale Score 4-6)) sennosides [Senokot] 8.6 mg Tablet 8.6 mg PO BID PRN (Reason: Constipation) Changed insulin lispro [Humalog KwikPen Insulin] 100 unit/mL insulin pen 2 unit SUBCUT AC Qty: 0 0RF Rx Instructions: IF BSG IS > 200. CALL MD IF BSG IS <70 OR >300. insulin glargine U-300 conc [Toujeo SoloStar U-300 Insulin] 300 unit/mL (1.5 mL) insulin pen 4 unit SUBCUT DAILY Qty: 0 0RF Discontinued potassium chloride 20 mEq tablet,ER particles/crystals 20 meq PO BID losartan 50 mg Tablet 50 mg PO QAM Qty: 30 0RF amlodipine 10 mg tablet 10 mg PO HS hydralazine 100 mg tablet 100 mg PO QAM Discharge Orders: Discharge Order (Routine); Ordered 11/15/23 Ordered By: David Pardo/Other Patient Handouts: Managing Type 2 Diabetes Admission Data Admit Date/Time: 11/01/23 20:42 Attending Provider: David Sutton Admit Provider: Kamran Chatterjee Primary Care Provider: Ghada Salazar Other Providers: [facility]; David Sutton; Kamran Chatterjee; Taniya Weems; Bridgett Browning; Eduin Dubois
[2023-11-15] MEDS: HEPARIN SOD (PORCINE) 1000 UNIT/ML IV SCH (11:11)
[2023-11-15] MEDS: HEPARIN SOD (PORCINE) 1000 UNIT/ML IV ONE (11:11)
[2023-11-15] MEDS: IRON SUCROSE 100 MG in SYRINGE 0 ML IV ONE (12:08)
[2023-11-15] MEDS: EPOETIN ALFA 10,000 UNITS/ML VIAL IV SCH (12:09)
--- NOTE | 2023-11-15 12:19 | Dialysis Progress Note ---
Date of Service November 15, 2023 Assessment & Plan (1) End stage renal disease: Plan: formerly CKD 4 progressing consistently to CKD 5, now ESRD Multiple BL renal cysts on imaging; hx of stone as well. No florid uremic sx today; but we have had volume OL requiring chest tube placement, life threatening dyskalemia, HTN urgency repeatedly in past weeks. Creatinine plateau'd at 4 today; running high 3s; SBP has been controlled recently. No indication for dialysis today but need to move ahead w/ dialysis initiation/planning . >>completed ESRD Options earlier this admission >>for [facility] HD at [facility] after [facility] >has seen vascular this admission and AVF creation planning in process >>got TDC 11/13 and first tx same day >plan 3 txs this week w/ d/c to [facility] today after HD and have tx there on 11/16 >>continue efforts to avoid dialysis dysequilibrium by managing bp meds (stopped all but torse as below), careful/slow start to dialysis w/ gradually increasing intensity of txs High risk for complications of uncontrolled HTN, fluid overload, electrolyte issues in setting of acute illness w/ ESRD. Care coordinated w/ Shaun re d/c, BP meds. (2) Hyperkalemia: Plan: K is in 3's today; controlled w/o K supplements currently but needs close monitoring; hx of dyskalemia repeatedly past 4-6 wks -daily bmp (3) Hypertensive urgency: Plan: Resolved; well controlled since about 11/05. A bit lower since TDC placement/HD start only medication for HTN currently is torsemide >> will lower frequency to 80 mg daily on non HD days Admission and Anticipated Discharge Date Admission Date: November 01, 2023 Subjective Seen on /during dialysis treatment. Denies shortness of breath, nausea vomiting. Tolerated treatment yesterday. On musculoskeletal discomfort at catheter site but no purulence or exit site concerns. No bleeding. Review of Systems 2 Review of Systems: All systems reviewed & are unremarkable except as noted in Subjective Physical Exam 2 Constitutional: well developed (lying flat on RA in bed), well nourished, + morbidly obese, + frail appearing and cooperative; no acute distress Eyes: EOM intact bilaterally ENMT: Ears: no external ear abnormality Nose: no external nose abnormality Mouth: + dry oral mucous membranes Neck: no nuchal rigidity Respiratory: normal respiratory effort Auscultation: + diminished lung sounds Cardiovascular: Rate/Rhythm: regular rate and regular rhythm Extremities: + edema (trace); no AV fistula Gastrointestinal (Abdomen): Inspection/Auscultation: normal bowel sounds P ercussion/Palpation: abdomen soft; abdomen nontender Musculoskeletal: Extremities: strength 5/5 throughout Skin: no rashes, warm and dry Psychiatric: Orientation: alert and oriented x 3 Speech: normal rate/rhythm/volume of speech (or very slightly slowed) Affect: + flat affect Results & Data Vital Signs (Past 12 Hours) Vital Signs Temp Pulse Pulse Pulse Pulse Resp BP 11/15/23 11:00 59 L 127/64 11/15/23 10:30 66 124/76 11/15/23 10:09 36.5 C 65 67 60 18 11/15/23 10:00 60 123/59 L 11/15/23 09:29 36.6 C 67 66 11/15/23 09:08 56 L 11/15/23 09:08 11/15/23 07:00 36.5 C 67 18 11/15/23 02:43 36.5 C 66 18 BP Pulse Ox O2 Del Method 11/15/23 11:00 11/15/23 10:30 11/15/23 10:09 122/99 94 11/15/23 10:00 11/15/23 09:29 11/15/23 09:08 11/15/23 09:08 Room Air 11/15/23 07:00 122/99 94 Nasal Cannula 11/15/23 02:43 126/65 93 Nasal Cannula Laboratory Results 11/15/23 05:57 11/15/23 05:54
[2023-11-17 15:42] LABS: Hepatitis A Antibody IgM NON-REACTIVE (NON-REACTIVE); Hepatitis B Core Antibody IgM NON-REACTIVE (NON-REACTIVE)
== END 2023-11-15 15:10 | DRG 673 ==
LOC: ED 16:14 → SUATTDRO 20:42 → 2E 20:42

== ENCOUNTER 2025-01-18 10:42 | Inpatient (IN) ==
--- NOTE | 2025-01-18 10:52 | Emergency Department Note ---
Impression & Plan Right lower lobe pneumonia, Acute respiratory failure, Sepsis ED Provider Note Name: NATANAEL MONTESINOS Age: 74 Sex: Female Arrives Via: Ambulance Informant: Patient, EMS ED Provider: Joe Ron MD Chief Complaint: Respiratory distress Impression: As per impressions above Medical Decision Makin-year-old female rapidly worsening respiratory distress at nursing facility. EMS had arrived found she was hypoxic placed on nonrebreather without improvement and switched to CPAP with rapid improvement. On arrival patient is awake alert oriented maintaining airway on CPAP. Very poor lung exam thus septic workup initiated for presumed pneumonia. Given concern for sepsis she was given 500 mL of IV fluids along with blood cultures lactic acid obtained. Her lactic acid is somewhat elevated. Other labs are concerning for infectious etiology as well. Chest x-ray reveals a right lower lobe infiltrate. She was given IV Zosyn and will await MRSA swab regarding vancomycin. CT of the chest considered given the findings consistent with pneumonia we will hold off on further evaluation of PE and defer to hospitalist service Patient is vastly improved on BiPAP and vital signs are remained relatively stable I do not feel 30/kg IV normal saline bolus is necessary with sepsis resuscitation as she seems to have improved with BiPAP and the initial normal saline 500 mL IV fluids. The patient is feeling much better though still requiring BiPAP thus plan will be for hospitalization. Sepsis Re-evaluation: Following initial resuscitation, a sepsis re-evaluation examination was completed at 11:15am on 01/18/25 by me. Triage/Nursing Notes reviewed by Me External Chart Review by me: dc summary from 11/15/23 reviewed by me for PMH Differential:Reactive airway disease, pneumonia, pneumothorax, COPD, CHF, infections, cardiac ischemia, pulmonary embolism, musculoskeletal, gastrointestinal, as well as other pathologies. Vital Signs: reviewed and remarkable for hypoxia, tachy Interventions: Normal saline bolus IV, BiPAP, Zosyn IV Labs:ED labs Reviewed by me and remarkable for elevated lactic acid, elevated troponin, elevated creatinine, elevated procalcitonin Imagin view chest x-ray as per my interpretation reveals a right lower lobe infiltrate EKG:As per my interpretation. Indication respiratory failure. Sinus tachycardia at 104 bpm and a QTc of 491. There is no ectopy or ischemia. When compared to EKG of November 04, 2023 no significant change. Cardiac/Tele Monitoring: Cardiac Monitoring: An Order was placed for continuous cardiac monitoring. The monitor shows a rate of 105 with a sinus tach rhythm. [facility] and managed Plan: Disposition:Hospitalization. Condition: Serious History of Present Illness: 74-year-old female arrives for evaluation of shortness of breath. Patient reports having been feeling better yesterday. This morning worsening shortness of breath. Staff noted that her nursing facility that she was quite short of breath and hypoxic. 911 was called. Oxygenation was noted to be in the 80s despite a nonrebreather. She was switched to CPAP with improvement in her breathing. Patient did have a fever earlier as well. Patient denies any chest pain, vomiting, headache, syncope, urinary symptoms, abdominal pain or other concerning signs or symptoms she has had no recent leg swelling. She has a left arm fistula for dialysis. Does not miss dialysis though did not have it today due to illness coming to the ER. Past Medical History:ESRD on dialysis, diabetes, gerd, htn, dyslipidemia, chf Home Medications:See Below Allergies:See Below Vitals:Blood Pressure: 112/56, Pulse 109, RR 26, T 37.8C, O2 92% on BiPAP Physical Exam: GENERAL: Patient is unwell appearing and in moderate distress. RESPIRATORY: Significant dyspnea tachypnea with diffuse coarse lung sounds and rhonchi. CARDIOVASCULAR: Tachycardic.No murmur appreciated. GASTROINTESTINAL: Abdomen soft, non-tender, no peritonitis. EXTREMITIES: Normal motion all extremities, no cyanosis, no edema. NEUROLOGIC: Alert and oriented. No focal neurologic deficits appreciated SKIN: No rash, no jaundice, no diaphoresis. PSYCH: Appropriate GCS: 15 ED Course: Times/Reassessments: Patient is significantly better after being on BiPAP. Critical Care: I have personally spent 40 minutes of critical care time in the direct management of this patient. Acute respiratory secondary to sepsis due to pneumonia requiring resuscitation and PPV. This was a life/limb threatening event. This 40 minutes is in excess of all separately billable procedures. Joe Ron MD Past Med/Surg History Problem List (Updated 01/18/25 @ 15:15 by Joe Ron MD) Sepsis (Acute) Acute respiratory failure (Acute) Right lower lobe pneumonia (Acute) Medical History Adverse effect of anesthesia "Slow to wake" as per patient PONV (postoperative nausea and vomiting) Diverticular disease No hospitalizations Chronic sinusitis Hx of migraines Sleep apnea not currently using CPAP History of pneumonia Summer 2023 Presence of permanent central venous catheter (12/2023) Hyperlipidemia Per [facility] ER records Depression Per [facility] ER records History of non-ST elevation myocardial infarction (NSTEMI) Pt denies - Hx noted in previous records Chronically elevated troponins during 08/2023-10/2023, felt to be r/t elevated BP/CKD per inpatient [facility] records End stage renal disease dialysis Monday//Monday - [facility] Hypertension Stable as per patient Type 2 diabetes mellitus IDDM Surgical History Hx of cataract surgery left and right Hx of tubal ligation Hx of hysterectomy Hx of wisdom tooth extraction Hx of tonsillectomy Hx of colonoscopy History of nasal surgery Family History Other Breast cancer No pertinent family history Social History Smoking Status: Never smoker Second Hand Exposure: Yes (as child); Do You Dip or Chew Tobacco: No; Hx Alcohol Use: No Hx Substance Use: No Preferred Language: Frisian Communication Ability: Effective Corporate Operations Compliance Manager Required: No Beliefs That Will Affect Care: None Current Living Situation: Family Current Living Situation Comment: [facility] Feels Safe at Home: Yes Assistive Devices: Walker and Wheelchair Allergies Allergies Allergy/AdvReac Type Severity Reaction Status Date / Time No Known Allergies Allergy Verified 08/19/24 13:29 Home Meds Home Medications Medication Instructions Recorded Confirmed cyanocobalamin (vitamin B-12) 500 500 mcg PO QAM 03/13/19 01/18/25 mcg tablet (Vitamin B-12) acetaminophen 325 mg tablet 325 mg PO Q6H PRN Pain 09/09/23 01/18/25 (Tylenol) fluticasone propionate 50 2 spray intranasal QAM 09/09/23 01/18/25 mcg/actuation nasal spray,suspension omega-3 fatty acids 1,000 mg 1,000 mg PO QAM 09/09/23 01/18/25 capsule rosuvastatin 10 mg tablet 10 mg PO HS 09/09/23 01/18/25 cetirizine 10 mg tablet (Zyrtec) 10 mg PO QAM 10/17/23 01/18/25 omeprazole 40 mg capsule,delayed 40 mg PO QAM 10/17/23 01/18/25 release insulin glargine U-300 conc 300 3 unit subcut QPM 12/14/23 01/18/25 unit/mL (1.5 mL) subcutaneous pen (Toujeo SoloStar U-300 Insulin) cholecalciferol (vitamin D3) 125 125 mcg PO QAM 12/15/23 01/18/25 mcg (5,000 unit) tablet (Vitamin D3) insulin lispro 100 unit/mL 5 unit subcut AC 06/07/24 01/18/25 subcutaneous pen (Humalog KwikPen (U-100) Insulin) Daily Multi-Vitamin 1 tab PO DAILY 01/18/25 01/18/25 aspirin 81 mg tablet,delayed 81 mg PO DAILY 01/18/25 01/18/25 release fluoxetine 10 mg capsule 10 mg PO DAILY 01/18/25 01/18/25 fluoxetine 40 mg capsule 40 mg PO DAILY 01/18/25 01/18/25 magnesium hydroxide 400 mg/5 mL 30 ml PO DAILY PRN Constipation 01/18/25 01/18/25 oral suspension (Milk of Magnesia) ondansetron HCl 4 mg tablet 4 mg PO Q8H PRN Nausea 01/18/25 01/18/25 sevelamer carbonate 800 mg tablet 800 mg PO TIDWMEAL 01/18/25 01/18/25 Results & Data (ED) Vital Signs Vital Signs - 24 hr 01/18/25 10:49 01/18/25 10:54 01/18/25 10:57 Temperature 37 C Temperature Source Oral Pulse Rate 109 H 109 H Pulse Rate [Apical] Pulse Rhythm [Apical] Pulse Strength [Apical] Respiratory Rate 28 H 35 H Respiratory Effort / Characteristics Spontaneous Labored Spontaneous Labored Spontaneous Labored Respiratory Depth Shallow Respiratory Pattern Tachypnea Tachypnea Blood Pressure 112/56 L Blood Pressure [Right Arm] Blood Pressure Mean 74 Blood Pressure Mean [Right Arm] Blood Pressure Position [Right Arm] Pulse Oximetry 96 95 Oxygen Delivery Method BiPAP Oxygen Flow Rate Fraction of Inspired Oxygen 40 40 SaO2/FiO2 Ratio 240 Sepsis Recent Fever Within 48 Hours Yes Sepsis New/Unexplained Change in Mental Status No Sepsis Action Taken by Nursing Physician Notified Fraction of Inspired Oxygen - Titration Pulse Oximetry Post Tiitration 01/18/25 10:58 01/18/25 11:00 01/18/25 11:08 Temperature Temperature Source Pulse Rate 100 H 109 H Pulse Rate [Apical] Pulse Rhythm [Apical] Pulse Strength [Apical] Respiratory Rate 32 H Respiratory Effort / Characteristics Respiratory Depth Respiratory Pattern Blood Pressure 110/68 Blood Pressure [Right Arm] Blood Pressure Mean 71 Blood Pressure Mean [Right Arm] Blood Pressure Position [Right Arm] Pulse Oximetry 95 94 Oxygen Delivery Method BiPAP BiPAP Oxygen Flow Rate Fraction of Inspired Oxygen 40 40 SaO2/FiO2 Ratio 237 Sepsis Recent Fever Within 48 Hours Sepsis New/Unexplained Change in Mental Status Sepsis Action Taken by Nursing Fraction of Inspired Oxygen - Titration Pulse Oximetry Post Tiitration 01/18/25 11:15 01/18/25 11:15 01/18/25 11:30 Temperature Temperature Source Pulse Rate 98 H Pulse Rate [Apical] 99 H Pulse Rhythm [Apical] Regular Pulse Strength [Apical] Normal Respiratory Rate 35 H 28 H Respiratory Effort / Characteristics Respiratory Depth Respiratory Pattern Tachypnea Blood Pressure 110/63 Blood Pressure [Right Arm] 110/68 Blood Pressure Mean 75 Blood Pressure Mean [Right Arm] 82 Blood Pressure Position [Right Arm] Lying Pulse Oximetry 95 96 Oxygen Delivery Method BiPAP BiPAP BiPAP Oxygen Flow Rate Fraction of Inspired Oxygen 40 40 SaO2/FiO2 Ratio 237 Sepsis Recent Fever Within 48 Hours Sepsis New/Unexplained Change in Mental Status Sepsis Action Taken by Nursing Fraction of Inspired Oxygen - Titration 40 Pulse Oximetry Post Tiitration 94 01/18/25 11:36 01/18/25 12:25 01/18/25 12:30 Temperature Temperature Source Pulse Rate 97 H 96 H Pulse Rate [Apical] 97 H Pulse Rhythm [Apical] Pulse Strength [Apical] Respiratory Rate 34 H 28 H 32 H Respiratory Effort / Characteristics Non-Labored Spontaneous Respiratory Depth Normal Respiratory Pattern Regular Blood Pressure Blood Pressure [Right Arm] 110/63 Blood Pressure Mean Blood Pressure Mean [Right Arm] 78 Blood Pressure Position [Right Arm] Pulse Oximetry 97 97 94 Oxygen Delivery Method BiPAP BiPAP Oxygen Flow Rate Fraction of Inspired Oxygen 40 40 SaO2/FiO2 Ratio 242 Sepsis Recent Fever Within 48 Hours Sepsis New/Unexplained Change in Mental Status Sepsis Action Taken by Nursing Fraction of Inspired Oxygen - Titration Pulse Oximetry Post Tiitration 01/18/25 12:54 01/18/25 14:42 Temperature Temperature Source Pulse Rate Pulse Rate [Apical] 95 H 100 H Pulse Rhythm [Apical] Pulse Strength [Apical] Respiratory Rate 20 22 Respiratory Effort / Characteristics Respiratory Depth Respiratory Pattern Blood Pressure Blood Pressure [Right Arm] 122/73 146/79 H Blood Pressure Mean Blood Pressure Mean [Right Arm] 89 101 Blood Pressure Position [Right Arm] Pulse Oximetry 97 97 Oxygen Delivery Method BiPAP Nasal Cannula Oxygen Flow Rate 4 Fraction of Inspired Oxygen SaO2/FiO2 Ratio Sepsis Recent Fever Within 48 Hours Sepsis New/Unexplained Change in Mental Status Sepsis Action Taken by Nursing Fraction of Inspired Oxygen - Titration Pulse Oximetry Post Tiitration Laboratory Data 01/18/25 10:56 01/18/25 10:56 Lab Results 01/18/25 01/18/25 01/18/25 Range/Units 10:56 12:43 12:45 WBC 17.34 H (4.8-10.8) K/ul RBC 3.12 L (4.20-5.40) M/uL Hgb 9.7 L (12.0-16.0) g/dl POC Hgb 9.5 L (12.0-16.0) g/dl Hct 30.6 L (37.0-47.0) % POC Hct 28 L (37-47) % MCV 98.1 (80.0-100.0) fL MCH 31.1 (25.0-34.0) pg MCHC 31.7 L (32.0-36.0) g/dL RDW Std Deviation 47.3 H (36.4-46.3) fL RDW Coeff of Aure 13.4 (11.5-14.5) % Plt Count 264 (130-400) K/uL MPV 9.1 L (9.4-12.4) fL Immature Gran % (Auto) 0.3 % Neut % (Auto) 94.7 % Lymph % (Auto) 1.5 % [place] % (Auto) 3.2 % Eos % (Auto) 0.0 % Baso % (Auto) 0.3 % Neut # (Auto) 16.42 H (1.40-6.50) K/uL Lymph # (Auto) 0.26 L (1.20-3.40) K/uL [place] # (Auto) 0.55 (0.11-0.59) K/uL Eos # (Auto) 0.00 (0.00-0.50) K/uL Baso # (Auto) 0.06 (0.00-0.20) K/uL Immature Gran # (Auto) 0.05 (0.01-0.20) K/uL POC pH 7.38 (7.35-7.45) POC pCO2 38 (35-46) mmHg POC pO2 98 H (80-95) mmHg POC HCO3 22 (19-24) mmol/L POC Total CO2 23 L (24-31) mmol/L POC Base Excess -3.0 (-9-1.8) mmol/L POC ABG O2 Sat 98.0 H (90-95) % VBG pH 7.30 L (7.36-7.41) VBG pCO2 46 (38-50) mmHg VBG pO2 50 mmHg VBG HCO3 23 mmol/L VBG O2 Saturation 83.2 % VBG Base Excess -4.0 mEq/L POC Sodium 135 (135-144) mmol/L Sodium 135 L (136-145) mmol/L POC Potassium 4.5 (3.3-5.0) mmol/L Potassium 4.0 (3.5-5.1) mmol/L Chloride 99 (98-107) mmol/L Carbon Dioxide 23 (21-32) mmol/L Anion Gap 13 H (3-11) BUN 49 H (6-23) mg/dl Creatinine 5.50 H* (0.6-1.2) mg/dl Est Cr Clr Drug Dosing 10.2 ml/min eGFR 7.60 BUN/Creatinine Ratio 8.9 L (10-20) Glucose 269 H (70-99(Fasting)) mg/dl Lactate 3.0 H* 3.3 H* (0.4-2.0) mmol/L Calcium 9.4 (8.6-10.3) mg/dl Magnesium 1.6 L (1.7-2.4) mg/dl Total Bilirubin 0.5 (0.2-1.0) mg/dl Direct Bilirubin 0.1 (0-0.2) mg/dl AST 13 (13-39) U/L ALT 9 (7-52) U/L Alkaline Phosphatase 106 H (34-104) U/L Troponin I High Sens 66.9 H* 89.5 H* D (0-14) pg/ml Total Protein 6.7 (6.0-8.3) gm/dl Albumin 4.0 (3.4-5.0) gm/dl Procalcitonin 8.73 H (0-0.5) ng/ml Nasal Screen MRSA (PCR) (Negative) SARS-CoV-2 (PCR) (Negative) Influenza Type A (PCR) (Neg) Influenza Type B (PCR) (Neg) RSV (RT-PCR) (Neg) 01/18/25 Range/Units Unknown WBC (4.8-10.8) K/ul RBC (4.20-5.40) M/uL Hgb (12.0-16.0) g/dl POC Hgb (12.0-16.0) g/dl Hct (37.0-47.0) % POC Hct (37-47) % MCV (80.0-100.0) fL MCH (25.0-34.0) pg MCHC (32.0-36.0) g/dL RDW Std Deviation (36.4-46.3) fL RDW Coeff of Aure (11.5-14.5) % Plt Count (130-400) K/uL MPV (9.4-12.4) fL Immature Gran % (Auto) % Neut % (Auto) % Lymph % (Auto) % [place] % (Auto) % Eos % (Auto) % Baso % (Auto) % Neut # (Auto) (1.40-6.50) K/uL Lymph # (Auto) (1.20-3.40) K/uL [place] # (Auto) (0.11-0.59) K/uL Eos # (Auto) (0.00-0.50) K/uL Baso # (Auto) (0.00-0.20) K/uL Immature Gran # (Auto) (0.01-0.20) K/uL POC pH (7.35-7.45) POC pCO2 (35-46) mmHg POC pO2 (80-95) mmHg POC HCO3 (19-24) mmol/L POC Total CO2 (24-31) mmol/L POC Base Excess (-9-1.8) mmol/L POC ABG O2 Sat (90-95) % VBG pH (7.36-7.41) VBG pCO2 (38-50) mmHg VBG pO2 mmHg VBG HCO3 mmol/L VBG O2 Saturation % VBG Base Excess mEq/L POC Sodium (135-144) mmol/L Sodium (136-145) mmol/L POC Potassium (3.3-5.0) mmol/L Potassium (3.5-5.1) mmol/L Chloride (98-107) mmol/L Carbon Dioxide (21-32) mmol/L Anion Gap (3-11) BUN (6-23) mg/dl Creatinine (0.6-1.2) mg/dl Est Cr Clr Drug Dosing ml/min eGFR BUN/Creatinine Ratio (10-20) Glucose (70-99(Fasting)) mg/dl Lactate (0.4-2.0) mmol/L Calcium (8.6-10.3) mg/dl Magnesium (1.7-2.4) mg/dl Total Bilirubin (0.2-1.0) mg/dl Direct Bilirubin (0-0.2) mg/dl AST (13-39) U/L ALT (7-52) U/L Alkaline Phosphatase (34-104) U/L Troponin I High Sens (0-14) pg/ml Total Protein (6.0-8.3) gm/dl Albumin (3.4-5.0) gm/dl Procalcitonin (0-0.5) ng/ml Nasal Screen MRSA (PCR) Negative (Negative) SARS-CoV-2 (PCR) NEGATIVE (Negative) Influenza Type A (PCR) Negative (Neg) Influenza Type B (PCR) Negative (Neg) RSV (RT-PCR) Negative (Neg) Administered Medications Discontinued Medications Sodium Chloride (Nss) 500 mls @ 999 mls/hr IV .Q31M JESS Stop: 01/18/25 11:30 Last Infusion: 01/18/25 11:47 Dose: Infused Documented By: Admin: 01/18/25 11:13 Dose: 999 mls/hr Documented By: BERTIN Piperacillin Sod/Tazobactam Sod (Zosyn) 4.5 gm in 100 mls @ 200 mls/hr IV NOW ONE; Protocol Stop: 01/18/25 11:48 Last Infusion: 01/18/25 12:02 Dose: Infused Documented By: Admin: 01/18/25 11:32 Dose: 200 mls/hr Documented By: BERTIN Vancomycin HCl 2,250 mg/ (Sodium Chloride) 545 mls @ 200 mls/hr IV NOW ONE Stop: 01/18/25 15:13 Last Infusion: 01/18/25 13:13 Dose: Infused Documented By: Admin: 01/18/25 13:02 Dose: 200 mls/hr Documented By: GERARDO Methylprednisolone (Methylprednisolone 125 Mg/2 Ml Vial) 40 mg IV NOW STA Stop: 01/18/25 12:25 Last Admin: 01/18/25 12:43 Dose: 40 mg Documented By: GERARDO Imaging Data Radiologist's Impression: Chest X-Ray 01/18/25 10:48 Clinical History: Sepsis Technique: A frontal view of the chest was obtained Comparison is made to the prior examination dated 11/10/2023 Findings: There is new right lower lobe alveolar consolidation, consistent with pneumonia. The heart size is within normal limits. No pleural effusion or pneumothorax is seen. There is no definite pulmonary nodule. No fracture is noted. Impression: Right lower lobe pneumonia ACT 112: Positive. There are findings on this exam that require communication between the performing entity and the patient following Patient Test Result Information Act ([place] ACT 112) guidelines. Electronically signed by Amor Chiang 01-18-2025 11:42 AM Discharge Plan Visit Data Chief Complaint: Respiratory Distress ED Provider: Joe Ron Discharge Problem: Right lower lobe pneumonia, Acute respiratory failure, Sepsis Patient Disposition: Admitted As Inpatient Condition: Serious Discharge Instructions Interventions: ED Discharge Assessment Last Done: 01/18/25 14:52 Forms Stand Alone Forms: isango! Prescriptions Prescriptions: No Action cyanocobalamin (vitamin B-12) [Vitamin B-12] 500 mcg Tablet 500 mcg PO QAM acetaminophen [Tylenol] 325 mg Tablet 325 mg PO Q6H PRN (Reason: Pain) omega-3 fatty acids 1,000 mg Capsule 1,000 mg PO QAM fluticasone propionate 50 mcg/actuation [place],Suspension 2 spray INTRANASAL QAM Rx Instructions: administer into each nostril rosuvastatin 10 mg tablet 10 mg PO HS cetirizine [Zyrtec] 10 mg Tablet 10 mg PO QAM omeprazole 40 mg capsule,delayed release(DR/EC) 40 mg PO QAM insulin glargine U-300 conc [Toujeo SoloStar U-300 Insulin] 300 unit/mL (1.5 mL) insulin pen 3 unit SUBCUT QPM cholecalciferol (vitamin D3) [Vitamin D3] 125 mcg (5,000 unit) Tablet 125 mcg PO QAM insulin lispro [Humalog KwikPen Insulin] 100 unit/mL insulin pen 5 unit SUBCUT AC Rx Instructions: IF BSG IS > 200. CALL MD IF BSG IS <70 OR >300. fluoxetine 40 mg capsule 40 mg PO DAILY Rx Instructions: TOTAL 50MG ondansetron HCl 4 mg tablet 4 mg PO Q8H PRN (Reason: Nausea) aspirin [Aspir-81] 81 mg Tablet,Delayed Release (Dr/Ec) 81 mg PO DAILY magnesium hydroxide [Milk of Magnesia] 400 mg/5 mL Suspension 30 ml PO DAILY PRN (Reason: Constipation) fluoxetine 10 mg capsule 10 mg PO DAILY Rx Instructions: TOTAL 50 MG sevelamer carbonate 800 mg tablet 800 mg PO TIDWMEAL Daily Multi-Vitamin 1 tab PO DAILY Referrals Referrals: Ghada Salazar MD [Primary Care Provider] - Discharge Problem: Right lower lobe pneumonia Qualifiers: Pneumonia type: due to unspecified organism Qualified Code(s): J18.9 - Pneumonia, unspecified organism Acute respiratory failure Qualifiers: Respiratory failure complication: hypoxia Qualified Code(s): J96.01 - Acute respiratory failure with hypoxia Sepsis Qualifiers: Sepsis type: sepsis due to unspecified organism Sepsis acute organ dysfunction status: with acute organ dysfunction Severe sepsis acute organ dysfunction type: acute respiratory failure Acute respiratory failure type: with hypoxia Severe sepsis shock status: without septic shock Qualified Code(s): A41.9 - Sepsis, unspecified organism; R65.20 - Severe sepsis without septic shock; J96.01 - Acute respiratory failure with hypoxia
[2025-01-18 11:11] LABS: Hematocrit (blood only) 30.6 % (37.0-47.0); Hemoglobin 9.7 g/dl (12.0-16.0); Mean Corpuscular Hemoglobin 31.1 pg (25.0-34.0); Mean Corpuscular Volume 98.1 fL (80.0-100.0); Platelet Count 264 K/uL (130-400); RDW Standard Deviation 47.3 fL (36.4-46.3); Red Blood Count 3.12 M/uL (4.20-5.40); White Blood Count 17.34 K/ul (4.8-10.8)
[2025-01-18 11:13] LABS: Base Excess VBG -4.0 mEq/L; HCO3 VBG 23 mmol/L; Oxygen Saturation VBG 83.2 %; PCO2 VBG 46 mmHg (38-50); PO2 VBG 50 mmHg; pH VBG 7.30 (7.36-7.41)
[2025-01-18] MEDS: SODIUM CHLORIDE 0.9% 500 ML IV SCH (11:13)
[2025-01-18] MEDS: PIPERACILLIN/TAZOBACTAM 4.5 GM/100 ML BAG IV ONE (11:32)
[2025-01-18 11:41] LABS: Alanine Aminotransferase 9.0 U/L (7-52); Albumin Level 4.0 gm/dl (3.4-5.0); Alkaline Phosphatase 106.0 U/L (34-104); Anion Gap 13.0 (3-11); Bilirubin,Total 0.5 mg/dl (0.2-1.0); Blood Urea Nitrogen 49.0 mg/dl (6-23); Calcium 9.4 mg/dl (8.6-10.3); Carbon Dioxide 23.0 mmol/L (21-32); Chloride 99.0 mmol/L (98-107); Creatinine Clr Calc Pharmacy 10.2 ml/min; Glucose 269.0 mg/dl (70-99(Fasting)); Magnesium 1.6 mg/dl (1.7-2.4); Potassium 4.0 mmol/L (3.5-5.1); Sodium 135.0 mmol/L (136-145); Total Protein 6.7 gm/dl (6.0-8.3)
--- NOTE | 2025-01-18 11:43 | XRay Report ---
Clinical History: Sepsis Technique: A frontal view of the chest was obtained Comparison is made to the prior examination dated 11/10/2023 Findings: There is new right lower lobe alveolar consolidation, consistent with pneumonia. The heart size is within normal limits. No pleural effusion or pneumothorax is seen. There is no definite pulmonary nodule. No fracture is noted. Impression: Right lower lobe pneumonia ACT 112: Positive. There are findings on this exam that require communication between the performing entity and the patient following Patient Test Result Information Act ([place] ACT 112) guidelines. Electronically signed by Amor Chiang 01-18-2025 11:42 AM
[2025-01-18 11:51] LABS: Influenza A virus by PCR Negative (Neg); Influenza B virus by PCR Negative (Neg); SARS CoV2 RNA(COVID-19) Ceph NEGATIVE (Negative)
[2025-01-18 11:54] LABS: Immature Granulocytes # (auto) 0.05 K/uL (0.01-0.20); Immature Granulocytes % (auto) 0.3 %
--- NOTE | 2025-01-18 11:56 | Electrocardiogram Report ---
Test Reason : Blood Pressure : */* mmHG Vent. Rate : 104 BPM Atrial Rate : 104 BPM P-R Int : 178 ms QRS Dur : 84 ms QT Int : 374 ms P-R-T Axes : 73 -4 46 degrees QTcB Int : 491 ms Sinus tachycardia Otherwise normal ECG When compared with ECG of 04-Nov-2023 05:39, Nonspecific T wave abnormality no longer evident in Lateral leads Confirmed by Everardo Oliva ([id number]) on 01/18/2025 11:55:39 AM Referred By: REFERRED SELF Confirmed By: Everardo Oliva
[2025-01-18] MEDS ORDERED: VANCOMYCIN CONSULT ACTIVE PRN (12:23)
--- NOTE | 2025-01-18 12:23 | Communication Note ---
Date of Service: January 18, 2025 Attending Addendum: Case reviewed with the advanced practitioner. I have personally performed a history and physical examination on the patient. I have reviewed the advanced practitioner's documentation on the date of service referenced in note, and I agree with, and take responsibility for the plan of care. please refer to her notes for full details patient seen and examined, records reviewed by myself as well on exam, patient seen resting in bed, on Bipap not in distress, comfortable alert, oriented x 3, conversant states she feels improved since arrival and initiation of Bipap reports productive cough no other symptoms VS noted and reviewed oriented x3, not in distress, speaks in sentences with no effort nor accessory muscle use normal rate, regular rhythm, no murmurs (+) crackles/rhonchi BL with mild wheeze non distended, soft, nontender no bipedal edema, erythema, warmth no neuro deficits all labs, imaging noted and reviewed ASSESSMENT AND PLAN> ACUTE HYPER-CAPNEIC, HYPOXIC RESPIRATORY FAILURE SECONDARY TO [facility] PNEUMONIA resident of SNF, on ESRD COVID, Flu, RSV negative ff up MRSA nasal swab, sputum culture, blood culture VBG 7.3/46/50/23 repeat 1 hr after Bipap Vanco + Zosyn + Doxy Xopenex Q6h Solumedrol 60mg IV one dose Pulm Consult ESRD appears euvolemic today is patient's usual HD schedule Nephro consulted other chronic medical problems: DM 2 HTN other diagnoses and plan of care as per advanced practitioner's notes I spent a total of 45 minutes coordinating, documenting, and providing care for this patient, excluding time spent in the performance of separately billed services or time spent by another provider/QHP. Lane England MD
--- NOTE | 2025-01-18 12:24 | History & Physical Report ---
Date of Service January 18, 2025 Assessment & Plan (1) Sleep apnea: (2) History of pneumonia: (3) Hyperlipidemia: (4) Depression: (5) History of non-ST elevation myocardial infarction (NSTEMI): (6) Type 2 diabetes mellitus: Plan The patient is a 74-year-old female who presented to the ER 01/18/25 with hypoxia, shortness of breath that started overnight Acute hypoxic respiratory distress Right lower lobe pneumonia: Symptoms started overnight, found to have fever of 100 F Hypoxic in the 70s on room air, improved on BiPAP on arrival to the ED VBG with mild acidosis on arrival, chest x-ray with right lower lobe pneumonia, viral panel negative Blood cultures pending, MRSA screen pending, continue IV Vanco/Zosyn/p.o. Doxy for atypical coverage Nebulizers, check sputum culture, pulmonology consulted, repeat ABG improved, will likely transition from BiPAP to nasal cannula Hx ESRD on HD: Consult nephrology, normal dialysis days Monday//mon Hx LINDSEY -does not use CPAP at home, unable to tolerate Hx DM: Managed on Toujeo/lispro SSI/4 times daily BGM, recheck A1C Depression: Continue fluoxetine Hx GERD: Continue omeprazole Full code DVT prophylaxis: hep sub - q A total of 55 minutes was spent on chart review/reviewing diagnostic data/discussion with consultants/facilitating plan of care History of Present Illness Chief Complaint: shortness of breath, cough Primary Care Provider: Ghada Salazar MD The patient is a 74 year old female with a PMH of DM2, insulin-dependent, HLD, obesity, sleep apnea, not on CPAP, ESRD on dialysis Monday//Monday, major depression, GERD, nystagmus who currently resides in an assisted living home who presented to the ED on 01/18/25 with complaints of shortness of breath. The patient reports having a normal day yesterday and overnight developing shortness of, nausea/vomiting/diarrhea. Patient also reports developing a cough bringing up yellow and translucent sputum. Denies any issues with trouble swallowing. Does also report a chronic runny nose. Reported an objective fever taken by the nurse overnight at 100 F. Also reports some generalized abdominal pain. Denies any sick contacts. Denies any chills. Patient also reports oxygen levels been in the 70s and [facility]. On arrival to the ED, patient was placed on nonrebreather mask with oxygen levels in the 80s, this then improved with BiPAP mask. VBG with a pH of 7.3, CO2 46, pO2 50, bicarb 23 Viral panel negative, MRSA screen pending, On arrival to the ED, labs remarkable for WBC 17, hemoglobin 9.7, NA 135, BUN 49, anion gap 13, creatinine 5.5, lactate 3.0, glucose 269, magnesium 1.6, troponin 66.9baseline, procalcitonin 8.73 Chest x-ray showed right lower lobe pneumonia The patient was given IV antibiotics, 500 L fluid bolus and will be admitted for further management of right lower lobe pneumonia and respiratory failure Allergies Allergy/AdvReac Type Severity Reaction Status Date / Time No Known Allergies Allergy Verified 08/19/24 13:29 Home Medications Medication Instructions Recorded Confirmed Type cyanocobalamin (vitamin B-12) 500 500 mcg PO QAM 03/13/19 01/18/25 History mcg tablet (Vitamin B-12) acetaminophen 325 mg tablet 325 mg PO Q6H PRN Pain 09/09/23 01/18/25 History (Tylenol) fluticasone propionate 50 2 spray intranasal QAM 09/09/23 01/18/25 History mcg/actuation nasal spray,suspension omega-3 fatty acids 1,000 mg 1,000 mg PO QAM 09/09/23 01/18/25 History capsule rosuvastatin 10 mg tablet 10 mg PO HS 09/09/23 01/18/25 History cetirizine 10 mg tablet (Zyrtec) 10 mg PO QAM 10/17/23 01/18/25 History omeprazole 40 mg capsule,delayed 40 mg PO QAM 10/17/23 01/18/25 History release insulin glargine U-300 conc 300 3 unit subcut QPM 12/14/23 01/18/25 History unit/mL (1.5 mL) subcutaneous pen (Toujeo SoloStar U-300 Insulin) cholecalciferol (vitamin D3) 125 125 mcg PO QAM 12/15/23 01/18/25 History mcg (5,000 unit) tablet (Vitamin D3) insulin lispro 100 unit/mL 5 unit subcut AC 06/07/24 01/18/25 History subcutaneous pen (Humalog KwikPen (U-100) Insulin) Daily Multi-Vitamin 1 tab PO DAILY 01/18/25 01/18/25 History aspirin 81 mg tablet,delayed 81 mg PO DAILY 01/18/25 01/18/25 History release fluoxetine 10 mg capsule 10 mg PO DAILY 01/18/25 01/18/25 History fluoxetine 40 mg capsule 40 mg PO DAILY 01/18/25 01/18/25 History magnesium hydroxide 400 mg/5 mL 30 ml PO DAILY PRN Constipation 01/18/25 01/18/25 History oral suspension (Milk of Magnesia) ondansetron HCl 4 mg tablet 4 mg PO Q8H PRN Nausea 01/18/25 01/18/25 History sevelamer carbonate 800 mg tablet 800 mg PO TIDWMEAL 01/18/25 01/18/25 History Past Med/Surg History Problem List Medical History Adverse effect of anesthesia "Slow to wake" as per patient PONV (postoperative nausea and vomiting) Diverticular disease No hospitalizations Chronic sinusitis Hx of migraines Sleep apnea not currently using CPAP History of pneumonia Summer 2023 Presence of permanent central venous catheter (12/2023) Hyperlipidemia Per [facility] records Depression Per [facility] records History of non-ST elevation myocardial infarction (NSTEMI) Pt denies - Hx noted in previous records Chronically elevated troponins during 08/2023-10/2023, felt to be r/t elevated BP/CKD per inpatient [facility] records End stage renal disease dialysis Monday//Monday - [facility] Hypertension Stable as per patient Type 2 diabetes mellitus IDDM Surgical History Hx of cataract surgery left and right Hx of tubal ligation Hx of hysterectomy Hx of wisdom tooth extraction Hx of tonsillectomy Hx of colonoscopy History of nasal surgery Family History Other Breast cancer No pertinent family history Social History Smoking Status: Never smoker Second Hand Exposure: Yes (as child); Do You Dip or Chew Tobacco: No; Hx Alcohol Use: No Hx Substance Use: No Preferred Language: Colombian Communication Ability: Effective Heating Mechanic Required: No Beliefs That Will Affect Care: None Current Living Situation: Family Current Living Situation Comment: [facility] Feels Safe at Home: Yes Assistive Devices: Walker and Wheelchair Review of Systems Review of Systems: All systems reviewed & are unremarkable except as noted in HPI & below Physical Exam Physical Exam: Please see physician addendum for physical exam Results & Data Results & Data Vital Signs (Past 12 Hours) Vital Signs Temp Pulse Pulse Resp BP BP Pulse Ox 01/18/25 11:36 97 H 34 H 110/63 97 01/18/25 11:15 99 H 35 H 110/68 95 01/18/25 11:15 01/18/25 11:08 109 H 01/18/25 10:58 95 01/18/25 10:54 109 H 35 H 95 01/18/25 10:49 37 C 109 H 28 H 112/56 L 96 O2 Del Method FiO2 01/18/25 11:36 BiPAP 40 01/18/25 11:15 BiPAP 40 01/18/25 11:15 BiPAP 01/18/25 11:08 01/18/25 10:58 BiPAP 40 01/18/25 10:54 40 01/18/25 10:49 BiPAP 40 Laboratory Results Laboratory Results WBC 17.34 K/ul (4.8-10.8) H 01/18/25 10:56 RBC 3.12 M/uL (4.20-5.40) L 01/18/25 10:56 Hgb 9.7 g/dl (12.0-16.0) L 01/18/25 10:56 Hct 30.6 % (37.0-47.0) L 01/18/25 10:56 MCV 98.1 fL (80.0-100.0) 01/18/25 10:56 MCH 31.1 pg (25.0-34.0) 01/18/25 10:56 MCHC 31.7 g/dL (32.0-36.0) L 01/18/25 10:56 RDW Std Deviation 47.3 fL (36.4-46.3) H 01/18/25 10:56 RDW Coeff of Aure 13.4 % (11.5-14.5) 01/18/25 10:56 Plt Count 264 K/uL (130-400) 01/18/25 10:56 MPV 9.1 fL (9.4-12.4) L 01/18/25 10:56 Immature Gran % (Auto) 0.3 % 01/18/25 10:56 Neut % (Auto) 94.7 % 01/18/25 10:56 Lymph % (Auto) 1.5 % 01/18/25 10:56 [place] % (Auto) 3.2 % 01/18/25 10:56 Eos % (Auto) 0.0 % 01/18/25 10:56 Baso % (Auto) 0.3 % 01/18/25 10:56 Neut # (Auto) 16.42 K/uL (1.40-6.50) H 01/18/25 10:56 Lymph # (Auto) 0.26 K/uL (1.20-3.40) L 01/18/25 10:56 [place] # (Auto) 0.55 K/uL (0.11-0.59) 01/18/25 10:56 Eos # (Auto) 0.00 K/uL (0.00-0.50) 01/18/25 10:56 Baso # (Auto) 0.06 K/uL (0.00-0.20) 01/18/25 10:56 Immature Gran # (Auto) 0.05 K/uL (0.01-0.20) 01/18/25 10:56 VBG pH 7.30 (7.36-7.41) L 01/18/25 10:56 VBG pCO2 46 mmHg (38-50) 01/18/25 10:56 VBG pO2 50 mmHg 01/18/25 10:56 VBG HCO3 23 mmol/L 01/18/25 10:56 VBG O2 Saturation 83.2 % 01/18/25 10:56 VBG Base Excess -4.0 mEq/L 01/18/25 10:56 Sodium 135 mmol/L (136-145) L 01/18/25 10:56 Potassium 4.0 mmol/L (3.5-5.1) 01/18/25 10:56 Chloride 99 mmol/L (98-107) 01/18/25 10:56 Carbon Dioxide 23 mmol/L (21-32) 01/18/25 10:56 Anion Gap 13 (3-11) H 01/18/25 10:56 BUN 49 mg/dl (6-23) H 01/18/25 10:56 Creatinine 5.50 mg/dl (0.6-1.2) H* 01/18/25 10:56 Est Cr Clr Drug Dosing 10.2 ml/min 01/18/25 10:56 eGFR 7.60 01/18/25 10:56 BUN/Creatinine Ratio 8.9 (10-20) L 01/18/25 10:56 Glucose 269 mg/dl (70-99(Fasting)) H 01/18/25 10:56 Lactate 3.0 mmol/L (0.4-2.0) H* 01/18/25 10:56 Calcium 9.4 mg/dl (8.6-10.3) 01/18/25 10:56 Magnesium 1.6 mg/dl (1.7-2.4) L 01/18/25 10:56 Total Bilirubin 0.5 mg/dl (0.2-1.0) 01/18/25 10:56 Direct Bilirubin 0.1 mg/dl (0-0.2) 01/18/25 10:56 AST 13 U/L (13-39) 01/18/25 10:56 ALT 9 U/L (7-52) 01/18/25 10:56 Alkaline Phosphatase 106 U/L (34-104) H 01/18/25 10:56 Troponin I High Sens 66.9 pg/ml (0-14) H* 01/18/25 10:56 Total Protein 6.7 gm/dl (6.0-8.3) 01/18/25 10:56 Albumin 4.0 gm/dl (3.4-5.0) 01/18/25 10:56 Procalcitonin 8.73 ng/ml (0-0.5) H 01/18/25 10:56 SARS-CoV-2 (PCR) NEGATIVE (Negative) 01/18/25 Unknown Influenza Type A (PCR) Negative (Neg) 01/18/25 Unknown Influenza Type B (PCR) Negative (Neg) 01/18/25 Unknown RSV (RT-PCR) Negative (Neg) 01/18/25 Unknown Impressions Chest X-Ray 01/18/25 10:48 Clinical History: Sepsis Technique: A frontal view of the chest was obtained Comparison is made to the prior examination dated 11/10/2023 Findings: There is new right lower lobe alveolar consolidation, consistent with pneumonia. The heart size is within normal limits. No pleural effusion or pneumothorax is seen. There is no definite pulmonary nodule. No fracture is noted. Impression: Right lower lobe pneumonia ACT 112: Positive. There are findings on this exam that require communication between the performing entity and the patient following Patient Test Result Information Act ([place] ACT 112) guidelines. Electronically signed by Amor Chiang 01-18-2025 11:42 AM
[2025-01-18] MEDS ORDERED: DEXTROSE 50% 50 ML SYRINGE IV PRN (12:40)
[2025-01-18] MEDS ORDERED: GLUCAGON FOR INJ 1 MG VIAL SQ PRN (12:40)
[2025-01-18] MEDS ORDERED: PHARMACY GLYCEMIC MGMT CONSULT PRN (12:40)
[2025-01-18] MEDS ORDERED: GLUCOSE 10 TAB/TUBE PO PRN (12:40)
[2025-01-18] MEDS ORDERED: GLUCOSE 40% GEL 15 GM TUBE PO PRN (12:40)
[2025-01-18] MEDS ORDERED: CARBOHYDRATES FOR HYPOGLYCEMIA PO PRN (12:40)
[2025-01-18 12:59] LABS: iSTAT Art Bld Gas Base Excess -3.0 mmol/L (-9-1.8)
[2025-01-18] MEDS: VANCOMYCIN HCL 2,250 MG in SODIUM CHLORIDE 0.9% 500 ML IV ONE (13:02)
[2025-01-18] MEDS: ALBUT/IPRATROP 3MG/0.5MG NEB 3 ML VIAL ONE (15:12)
[2025-01-18] MEDS: SEVELAMER CARBONATE 800 MG TAB PO SCH (16:07)
[2025-01-18] MEDS: ACETAMINOPHEN 325 MG TAB PO PRN (16:07)
[2025-01-18 16:17] LABS: Appearance Urine Cloudy (Clear); Bacteria Urine Automated 1+ (None Seen); Glucose Urine UA 3+ (Negative); WBC Urine Automated 0-5 /hpf (0-5)
[2025-01-18] MEDS ORDERED: INSULIN ASPART PER UNIT CHARGE SC SCH (16:30)
[2025-01-18] MEDS: INSULIN ASPART PER UNIT CHARGE SC SCH (18:12)
[2025-01-18] MEDS: ROSUVASTATIN CALCIUM 10 MG TAB PO SCH (20:49)
[2025-01-18] MEDS: DOXYCYCLINE HYCLATE 100 MG CAP PO SCH (20:50)
[2025-01-18] MEDS: LANTUS PER UNIT CHARGE SC SCH (20:56)
[2025-01-18] MEDS: HEPARIN SOD 5,000 UNIT/0.5 ML VIAL SQ SCH (23:28)
[2025-01-18] MEDS: PIPERACILLIN/TAZOBACTAM 4.5 GM/100 ML BAG IV SCH (23:28)
[2025-01-19 06:43] LABS: Alanine Aminotransferase 11.0 U/L (7-52); Albumin Globulin Ratio 1.4 (0.9-2); Albumin Level 3.6 gm/dl (3.4-5.0); Alkaline Phosphatase 82.0 U/L (34-104); Anion Gap 11.0 (3-11); Basophilic Stippling 1+; Bilirubin,Total 0.5 mg/dl (0.2-1.0); Blood Urea Nitrogen 66.0 mg/dl (6-23); Calcium 9.5 mg/dl (8.6-10.3); Carbon Dioxide 25.0 mmol/L (21-32); Chloride 99.0 mmol/L (98-107); Creatinine Clr Calc Pharmacy 9.0 ml/min; Globulin 2.6 gm/dl (2.5-4.0); Glucose 151.0 mg/dl (70-99(Fasting)); Hematocrit (blood only) 27.5 % (37.0-47.0); Hemoglobin 8.8 g/dl (12.0-16.0); Immature Granulocytes # (auto) 0.12 K/uL (0.01-0.20); Immature Granulocytes % (auto) 0.5 %; Magnesium 1.7 mg/dl (1.7-2.4); Mean Corpuscular Hemoglobin 31.3 pg (25.0-34.0); Mean Corpuscular Volume 97.9 fL (80.0-100.0); Platelet Count 247 K/uL (130-400); Polychromasia 1+; Potassium 4.6 mmol/L (3.5-5.1); RDW Standard Deviation 48.2 fL (36.4-46.3); Red Blood Count 2.81 M/uL (4.20-5.40); Sodium 135.0 mmol/L (136-145); Total Protein 6.2 gm/dl (6.0-8.3); White Blood Count 24.94 K/ul (4.8-10.8)
--- NOTE | 2025-01-19 07:15 | Pharmacy Report ---
Pharmacy Glycemic Short Note 2 - Date of Service January 19, 2025 - Glycemic Short BSG Results (Last 24 hours): 01/18/25 01/18/25 01/18/25 10:56 18:01 19:59 Glucose 269 H POC Glucose 247 H 181 H 01/18/25 01/19/25 01/19/25 23:41 05:56 06:48 Glucose 151 H POC Glucose 175 H 142 H OUTPATIENT ANTIDIABETIC REGIMEN: * Toujeo 3 units SC qPM * Novolog 5 units SC AC (if BSG > 200 mg/dL) HbA1c: 6.1% (01/19/25) * However, this result is likely somewhat unreliable in ESRD patients d/t interactions between the A1c analyzing technique and high levels of urea in ESRD, reduced RBC life span, iron deficiency anemia, and EPO administration. HbA1c > 7.5% in ESRD patient may overestimate the extent of hyperglycemia in ESRD patients. ASSESSMENT: * EF is a 74 year old female who presents with right lower lobe pneumonia (currently on Zosyn) * Pertinent PMH includes T2DM, ESRD (HD on Monday, , and Monday), hypertension, hyperlipidemia, and hx of NSTEMI * Hyperglycemic on presentation (ordered conservative initial SC basal/bolus regimen) * Diet advanced today * Per nephrology note, likely to be dialyzed tomorrow PLAN FOR INPATIENT GLYCEMIC CONTROL: * Basal insulin * Lantus 3 units SQ HS * Bolus insulin * NovoLog per scale ACHS or Q6hrs while NPO * Goal Range: Low 120 mg/dL - High 160 mg/dL * Correction Factor: 30 mg/dL/unit * Nutritional / Prandial insulin per carb ratio of 1 unit per 10 grams CHO consumed
--- NOTE | 2025-01-19 07:29 | Pulmonary Consultation ---
Date of Consultation January 19, 2025 Assessment & Plan (1) Right lower lobe pneumonia: Pneumonia type: due to unspecified organism Qualified Code(s): J18.9 - Pneumonia, unspecified organism (2) Acute respiratory failure: Respiratory failure complication: hypoxia Qualified Code(s): J96.01 - Acute respiratory failure with hypoxia Plan Impression: 74-year-old female with end-stage renal disease on dialysis admitted with a right lower lobe pneumonia. Recommendations: 1. Pneumonia: Healthcare associated given the patient is a dialysis patient. Patient received Zosyn, Doxy, and vancomycin in the emergency room which should be more than adequate coverage. Await nasal MRSA swabs and if negative could consider discontinuation of vancomycin. Would follow clinical course including oxygen requirement, fever curve, and leukocytosis. 2. Hypoxemia: Secondary to #1. Continue to wean oxygen as tolerated. Incentive spirometry. Out of bed to chair as tolerated. 3. Hypercarbic respiratory failure: Present on presentation but appears to have resolved with application of noninvasive positive pressure ventilation. The patient is at risk for hypercarbia and may have potential underlying sleep disordered breathing. Outpatient sleep study should be considered. Would apply a noninvasive positive pressure ventilation should the patient have altered mental status or evidence of CO2 retention. Avoid narcotics, benzodiazepines, or other potential respiratory suppressant medications. 4. Management of the patient's other medical issues is deferred to the primary admitting service. Thanks the opportunity participate in the care of this patient. Will continue to follow with you. Feel free to contact us with questions or concerns History of Present Illness Attending Physician: Zeynep Cassidy MD History of Present Illness Asked by hospitalist to assist in evaluation management this patient with pneumonia and hypoxemic and hypercarbic respiratory failure. History is obtained from discussion with patient as well as review of electronic medical record. The patient is a 74-year-old obese female with end-stage renal disease on dialysis who presented to the emergency room with complaints of subjective fever, chest pain, and shortness of breath. She had associated nausea vomiting and diarrhea. No ill contacts. She typically gets dialysis Monday and Monday but missed her session yesterday. She had low oxygen levels at home. In the emergency room she was placed on a nonrebreather and then transition to noninvasive positive pressure ventilation. Follow-up blood gas demonstrated resolution of the respiratory acidosis. This morning the patient is sleeping comfortably. She is easily arousable. She states she feels better than when she came in. She is complaining of some slight flank discomfort more on the left than the right. She is coughing but not really expectorating phlegm. No ill contacts that she is aware of. She has not had any hemoptysis. No significant palpitations or chest discomfort. She states she has had issues with her dialysis access. Allergies Allergy/AdvReac Type Severity Reaction Status Date / Time No Known Allergies Allergy Verified 08/19/24 13:29 Home Medications Medication Instructions Recorded Confirmed Type cyanocobalamin (vitamin B-12) 500 500 mcg PO QAM 03/13/19 01/18/25 History mcg tablet (Vitamin B-12) acetaminophen 325 mg tablet 325 mg PO Q6H PRN Pain 09/09/23 01/18/25 History (Tylenol) fluticasone propionate 50 2 spray intranasal QAM 09/09/23 01/18/25 History mcg/actuation nasal spray,suspension omega-3 fatty acids 1,000 mg 1,000 mg PO QAM 09/09/23 01/18/25 History capsule rosuvastatin 10 mg tablet 10 mg PO HS 09/09/23 01/18/25 History cetirizine 10 mg tablet (Zyrtec) 10 mg PO QAM 10/17/23 01/18/25 History omeprazole 40 mg capsule,delayed 40 mg PO QAM 10/17/23 01/18/25 History release insulin glargine U-300 conc 300 3 unit subcut QPM 12/14/23 01/18/25 History unit/mL (1.5 mL) subcutaneous pen (Toujeo SoloStar U-300 Insulin) cholecalciferol (vitamin D3) 125 125 mcg PO QAM 12/15/23 01/18/25 History mcg (5,000 unit) tablet (Vitamin D3) insulin lispro 100 unit/mL 5 unit subcut AC 06/07/24 01/18/25 History subcutaneous pen (Humalog KwikPen (U-100) Insulin) Daily Multi-Vitamin 1 tab PO DAILY 01/18/25 01/18/25 History aspirin 81 mg tablet,delayed 81 mg PO DAILY 01/18/25 01/18/25 History release fluoxetine 10 mg capsule 10 mg PO DAILY 01/18/25 01/18/25 History fluoxetine 40 mg capsule 40 mg PO DAILY 01/18/25 01/18/25 History magnesium hydroxide 400 mg/5 mL 30 ml PO DAILY PRN Constipation 01/18/25 01/18/25 History oral suspension (Milk of Magnesia) ondansetron HCl 4 mg tablet 4 mg PO Q8H PRN Nausea 01/18/25 01/18/25 History sevelamer carbonate 800 mg tablet 800 mg PO TIDWMEAL 01/18/25 01/18/25 History Patient History Medical History Adverse effect of anesthesia "Slow to wake" as per patient PONV (postoperative nausea and vomiting) Diverticular disease No hospitalizations Chronic sinusitis Hx of migraines Sleep apnea not currently using CPAP History of pneumonia Summer 2023 Presence of permanent central venous catheter (12/2023) Hyperlipidemia Per [facility] records Depression Per [facility] records History of non-ST elevation myocardial infarction (NSTEMI) Pt denies - Hx noted in previous records Chronically elevated troponins during 08/2023-10/2023, felt to be r/t elevated BP/CKD per inpatient [facility] records End stage renal disease dialysis Monday//Monday - [facility] Hypertension Stable as per patient Type 2 diabetes mellitus IDDM Surgical History Hx of cataract surgery left and right Hx of tubal ligation Hx of hysterectomy Hx of wisdom tooth extraction Hx of tonsillectomy Hx of colonoscopy History of nasal surgery Family History Other Breast cancer No pertinent family history Social History Smoking Status: Never smoker Second Hand Exposure: Yes (as child); Do You Dip or Chew Tobacco: No; Hx Alcohol Use: No Hx Substance Use: No Preferred Language: Azeri Communication Ability: Effective Secret Service Agent Required: No Beliefs That Will Affect Care: None Current Living Situation: Correction Current Living Situation Comment: [place] [facility] Feels Safe at Home: Yes Safety Concerns: Feels Safe At This Time Assistive Devices: Glasses, Walker and Wheelchair Review of Systems Review of Systems: Please refer to admission H&P. No additions or deletions Physical Exam Constitutional: well developed (lying flat on RA in bed), well nourished, + morbidly obese, + frail appearing and cooperative; no acute distress ENMT: Ears: no external ear abnormality Nose: no external nose abnormality Mouth: + dry oral mucous membranes Neck: no nuchal rigidity Respiratory: no respiratory distress, no labored breathing and not tachypneic Auscultation: + diminished lung sounds and + crackles; no wheezes Cardiovascular: Rate/Rhythm: regular rate and regular rhythm Extremities: + edema (trace); no AV fistula Gastrointestinal (Abdomen): Inspection/Auscultation: normal bowel sounds Percussion/Palpation: abdomen soft; abdomen nontender Skin: no rashes, warm and dry Psychiatric: Orientation: alert and oriented x 3 Speech: normal rate/rhythm/volume of speech (or very slightly slowed) Affect: + flat affect Results & Data Results & Data Vital Signs (Past 12 Hours) Vital Signs Temp Pulse Pulse Resp BP Pulse Ox O2 Del Method 01/19/25 07:20 88 01/19/25 03:07 36.4 C L 86 18 132/77 97 Nasal Cannula 01/18/25 22:59 36.5 C 78 20 150/77 H 94 Nasal Cannula 01/18/25 22:00 94 H 01/18/25 20:36 Nasal Cannula 01/18/25 20:06 36.7 C 85 20 151/67 H 96 Room Air Critical Care Results & Data Vital Signs (Past 12 Hours) Vital Signs Temp Pulse Pulse Resp BP Pulse Ox O2 Del Method 01/19/25 07:20 88 01/19/25 03:07 36.4 C L 86 18 132/77 97 Nasal Cannula 01/18/25 22:59 36.5 C 78 20 150/77 H 94 Nasal Cannula 01/18/25 22:00 94 H 01/18/25 20:36 Nasal Cannula 01/18/25 20:06 36.7 C 85 20 151/67 H 96 Room Air Lab & Micro Results (Past 24 Hours) RBC 2.81 M/uL (4.20-5.40) L 01/19/25 WBC 24.94 K/ul (4.8-10.8) H 01/19/25 Hgb 8.8 g/dl (12.0-16.0) L 01/19/25 Hct 27.5 % (37.0-47.0) L 01/19/25 MCV 97.9 fL (80.0-100.0) 01/19/25 MCH 31.3 pg (25.0-34.0) 01/19/25 MCHC 32.0 g/dL (32.0-36.0) 01/19/25 RDW Standard Deviation 48.2 fL (36.4-46.3) H 01/19/25 RDW Coefficient of Variation 13.3 % (11.5-14.5) 01/19/25 Plt Count 247 K/uL (130-400) 01/19/25 MPV 9.5 fL (9.4-12.4) 01/19/25 Neutrophils (%) (Auto) 88.9 % 01/19/25 Lymphocytes (%) (Auto) 4.6 % 01/19/25 Monocytes # (Auto) 1.37 K/uL (0.11-0.59) H 01/19/25 Eosinophils # (Auto) 0.06 K/uL (0.00-0.50) 01/19/25 Immature Granulocyte % (Auto) 0.5 % 01/19/25 Neutrophils # (Auto) 22.17 K/uL (1.40-6.50) H 01/19/25 Lymphocytes # (Auto) 1.14 K/uL (1.20-3.40) L 01/19/25 Monocytes # (Auto) 1.37 K/uL (0.11-0.59) H 01/19/25 Eosinophils # (Auto) 0.06 K/uL (0.00-0.50) 01/19/25 Basophils # (Auto) 0.08 K/uL (0.00-0.20) 01/19/25 Immature Granulocyte # (Auto) 0.12 K/uL (0.01-0.20) 5 Polychromasia 1+ 01/19/25 Basophilic Stippling 1+ 01/19/25 Na 135 mmol/L (136-145) L 01/19/25 K 4.6 mmol/L (3.5-5.1) 01/19/25 Cl 99 mmol/L (98-107) 01/19/25 CO2 25 mmol/L (21-32) 01/19/25 Anion Gap 11 (3-11) 01/19/25 BUN 66 mg/dl (6-23) H 01/19/25 Creatinine 6.26 mg/dl (0.6-1.2) H* 01/19/25 BUN/Creatinine Ratio 10.5 (10-20) 01/19/25 Glu 151 mg/dl (70-99(Fasting)) H 01/19/25 Ca 9.5 mg/dl (8.6-10.3) 01/19/25 Total Bilirubin 0.5 mg/dl (0.2-1.0) 01/19/25 Direct Bilirubin 0.1 mg/dl (0-0.2) 01/18/25 AST 16 U/L (13-39) 01/19/25 ALT 11 U/L (7-52) 01/19/25 Alkaline Phosphatase 82 U/L (34-104) 01/19/25 TP 6.2 gm/dl (6.0-8.3) 01/19/25 Albumin 3.6 gm/dl (3.4-5.0) 01/19/25 Globulin 2.6 gm/dl (2.5-4.0) 01/19/25 Albumin/Globulin Ratio 1.4 (0.9-2) 01/19/25 Mg 1.7 mg/dl (1.7-2.4) 01/19/25 05:56 Calcium Level 9.5 mg/dl (8.6-10.3) 01/19/25 05:56 Venous Blood pH 7.30 (7.36-7.41) L 01/18/25 10:56 Venous Blood Partial Pressure CO2 46 mmHg (38-50) 01/18/25 10:5 6 Venous Blood Partial Pressure O2 50 mmHg 01/18/25 10:56 Venous Blood HCO3 23 mmol/L 01/18/25 10:56 Venous Blood Base Excess -4.0 mEq/L 01/18/25 10:56 Venous Blood Oxygen Saturation 83.2 % 01/18/25 10:56 Diagnostic Findings (Past 24 Hours) Chest X-Ray 01/18/25 10:48 Clinical History: Sepsis Technique: A frontal view of the chest was obtained Comparison is made to the prior examination dated 11/10/2023 Findings: There is new right lower lobe alveolar consolidation, consistent with pneumonia. The heart size is within normal limits. No pleural effusion or pneumothorax is seen. There is no definite pulmonary nodule. No fracture is noted. Impression: Right lower lobe pneumonia ACT 112: Positive. There are findings on this exam that require communication between the performing entity and the patient following Patient Test Result Information Act ([place] ACT 112) guidelines. Electronically signed by Amor Chiang 01-18-2025 11:42 AM I & O Totals 24 Hours 01/18/25 01/19/25 01/20/25 06:59 06:59 06:59 Intake Total 1245 / 1245 Output Total 300 / 300 Balance 945 / 945 Cumulative 01/18/25 10:33 thru 01/19/25 06:00 Intake Total 1245 Output Total 300 Balance 945 RT Ventilator Mngmt (Last Documented) Ventilator Ordered Settings Respiratory Rate 18 01/19/25 03:07 Fraction of Inspired Oxygen 40 01/18/25 12:25 Ventilator - PT Measurements Respiratory Rate 18 PG Care Time/CCT Total # of Minutes Spent Total Time Spent with Patient: Total time spent is greater than 50% in coordination of care (as documented) at patient's floor/unit and/or counseling patient: Coding Level of Care Code 13690 INT INP/OBS CARE 2/55MIN Diagnoses Right lower lobe pneumonia J18.9 Pneumonia type: due to unspecified organism Acute respiratory failure J96.01 Respiratory failure complication: hypoxia
[2025-01-19 07:50] LABS: Hemoglobin A1C 6.1 % (4.5-5.6)
[2025-01-19] MEDS ORDERED: Nursing to Pharmacy Communication SCH (08:00)
[2025-01-19] MEDS: CYANOCOBALAMIN (B-12) 500 MCG TABLET PO SCH (08:20)
[2025-01-19] MEDS: ASPIRIN 81 MG ECTAB PO SCH (08:20)
[2025-01-19] MEDS: CHOLECALCIFEROL 125 MCG (5,000 UNITS) TAB PO SCH (08:20)
[2025-01-19] MEDS: OMEGA-3 (PURIFIED FISH OIL) 1 GM CAP PO SCH (08:21)
[2025-01-19 08:52] LABS: A calco-baum cmplx NotReported Not Detected (NotDetected); Bact fragilis Not Reported Not Detected (NotDetected); Blood Culture Id Panel See PCR Comment (NotDetected); C auris Not Reported Not Detected (NotDetected); Calbicans Not Reported Not Detected (NotDetected); Candida glabrata Not Reported Not Detected (NotDetected); Candida krusei Not Reported Not Detected (NotDetected); Cneoformans/gatti Not Reported Not Detected (NotDetected); Cparapsilosis Not Reported Not Detected (NotDetected); Ctropicalis Not Reported Not Detected (NotDetected); E cloacae compx Not Reported Not Detected (NotDetected); Efaecalis Not Reported Not Detected (NotDetected); Efaecium Not Reported Not Detected (NotDetected); Enterobacterales Not Reported Not Detected (NotDetected); Escherichia coli Not Reported Not Detected (NotDetected); H influenzae Not Reported DETECTED (NotDetected); K aerogenes Not Reported Not Detected (NotDetected); Koxytoca Not Reported Not Detected (NotDetected); Kpneumoniae grp Not Reported Not Detected (NotDetected); Lmonocyt Not Reported Not Detected (NotDetected); N meningitidis Not Reported Not Detected (NotDetected); P aeruginosa Not Reported Not Detected (NotDetected); Proteus spp Not Reported Not Detected (NotDetected); Salmonella spp Not Reported Not Detected (NotDetected); Staph lugdunensis Not Reported Not Detected (NotDetected); Staph spp. Not Reported Not Detected (NotDetected); Staphaureus Not Reported Not Detected (NotDetected); Staphepi Not Reported Not Detected (NotDetected); Stenmaltophilia Not Reported Not Detected (NotDetected); Strep agal(GrpB) Not Reported Not Detected (NotDetected); Strep pneum Not Reported Not Detected (NotDetected); Strep pyog (GrpA) Not Reported Not Detected (NotDetected); Strep spp Not Reported Not Detected (NotDetected)
[2025-01-19] MEDS: OSELTAMIVIR PHOSPHATE 30 MG CAP PO ONE (09:57)
[2025-01-19] MEDS: FLUTICASONE PROPIONATE NA SPR 16 GM BTL SCH (10:30)
[2025-01-19] MEDS: guaiFENesin 600 MG TABCR PO SCH (10:30)
--- NOTE | 2025-01-19 11:15 | Hospitalist Progress Note ---
Date of Service January 19, 2025 Assessment & Plan (1) Sleep apnea: (2) History of pneumonia: (3) Hyperlipidemia: (4) Depression: (5) History of non-ST elevation myocardial infarction (NSTEMI): (6) Type 2 diabetes mellitus: Plan 74-year-old female who presented to the ER 01/18/25 with hypoxia, shortness of breath that started overnight. 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 - Vanc dc'd, c/w zosyn 01/18 and doxy 01/18. - Pulm evaled, appreciate recs. c/w Nebulizers, wean down O2 as anatoliy. 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 Hx ESRD on HD: Consult nephrology, normal dialysis days Monday//sat Hx LINDSEY -does not use CPAP at home, unable to tolerate Hx DM: Managed on Toujeo/lispro SSI/4 times daily BGM, recheck A1C - 5.1 Depression: Continue fluoxetine Hx GERD: Continue omeprazole Full code DVT prophylaxis: hep sub - q Admission and Anticipated Discharge Date Admission Date: January 18, 2025 Subjective Patient was seen and examined at bedside. Patient was sitting up in bed, on 2 L oxygen via nasal cannula, reports feeling better. Patient still reports feeling tired, reports cough somewhat improving. Patient denies pain or burning while passing urine or diarrhea. Patient reports eating okay. Physical Exam Physical Exam: GENERAL: Alert and oriented x3. NAD, on 2L NC O2, appears frail/ill HEENT: No pallor, no icterus. Pupils equal, round and reactive to light. Oral mucosa moist. NECK: No JVD, no neck masses. HEART: S1 and S2 heard. Regular rate and rhythm. No murmur, no gallop. RESPIRATORY SYSTEM: Normal AP diameter. No accessory muscle use. No wheezing, rll crackles ABDOMEN: Soft, bowel sounds present, nontender, no distention. CENTRAL NERVOUS SYSTEM: No facial droop. Speech is clear. Obeys simple commands. Moves extremities. EXTREMITIES: No edema, no erythema seen. Results & Data Results & Data Vital Signs (Past 12 Hours) Vital Signs Temp Pulse Pulse Resp BP Pulse Ox O2 Del Method 01/19/25 09:00 Nasal Cannula 01/19/25 07:52 01/19/25 07:39 36.3 C L 86 22 133/85 99 Nasal Cannula 01/19/25 07:20 88 01/19/25 03:07 36.4 C L 86 18 132/77 97 Nasal Cannula O2 Flow Rate 01/19/25 09:00 2 01/19/25 07:52 2 01/19/25 07:39 4 01/19/25 07:20 01/19/25 03:07
[2025-01-19] MEDS ORDERED: ALBUT/IPRATROP 3MG/0.5MG NEB 3 ML VIAL NEB PRN (11:23)
--- NOTE | 2025-01-19 11:28 | Nephrology Consultation ---
Date of Consultation January 19, 2025 Assessment & Plan (1) ESRD (end stage renal disease) on dialysis: patient with ESRD on dialysis Monday. Patient missed outpatient dialysis on Monday. She is now admitted with right lower lobe pneumonia. Electrolytes are stable and no signs of volume overload. No indication for dialysis today. Will dialyze her tomorrow for 3-1/2 hours target UF 2 L. she can be dialyzed on a Monday schedule while inpatient and will be switched to TTS on discharge. patient has prolonged bleeding from the AV fistula. She will need vascular intervention but this can be done as an outpatient. Will only give heparin bolus at the beginning. (2) Right lower lobe pneumonia: Patient with right lower lobe pneumonia. She is getting vancomycin and Zosyn renally dosed. (3) Sepsis: Due to pneumonia, influenza and Blood cultures growing Gram-negative bacilli. Patient is on vancomycin and Zosyn as above. Avoid hypotension. History of Present Illness Reason for Consultation: ESRD complicated by pneumonia Requesting Physician: Zeynep Cassidy MD Attending Physician: Zeynep Cassidy MD History of Present Illness The patient is a 74 year old female with a PMH of DM2, insulin-dependent, HLD, obesity, sleep apnea, not on CPAP, ESRD on dialysis Monday//Monday at [facility] using a left upper arm AV graft, major depression, GERD, resident of assisted living home who was admitted with shortness of breath. Chest x-ray showed right lower lobe pneumonia. Patient also tested positive for influenza. Blood cultures growing Gram-negative bacilli. She has been having cough and shortness of breath for several days prior to admission. Her last outpatient dialysis was . Patient missed dialysis on Monday. Patient has been having prolonged bleeding from the AV graft at the end of dialysis. She saw vascular and was planned for intervention on Monday next week. She feels better now. He is on oxygen 2 L nasal cannula. No leg swelling. No shortness of breath. Still has a cough. Daughter was at the bedside. All questions answered. Allergies Allergy/AdvReac Type Severity Reaction Status Date / Time No Known Allergies Allergy Verified 08/19/24 13:29 Home Medications Medication Instructions Recorded Confirmed Type cyanocobalamin (vitamin B-12) 500 500 mcg PO QAM 03/13/19 01/18/25 History mcg tablet (Vitamin B-12) acetaminophen 325 mg tablet 325 mg PO Q6H PRN Pain 09/09/23 01/18/25 History (Tylenol) fluticasone propionate 50 2 spray intranasal QAM 09/09/23 01/18/25 History mcg/actuation nasal spray,suspension omega-3 fatty acids 1,000 mg 1,000 mg PO QAM 09/09/23 01/18/25 History capsule rosuvastatin 10 mg tablet 10 mg PO HS 09/09/23 01/18/25 History cetirizine 10 mg tablet (Zyrtec) 10 mg PO QAM 10/17/23 01/18/25 History omeprazole 40 mg capsule,delayed 40 mg PO QAM 10/17/23 01/18/25 History release insulin glargine U-300 conc 300 3 unit subcut QPM 12/14/23 01/18/25 History unit/mL (1.5 mL) subcutaneous pen (Toujeo SoloStar U-300 Insulin) cholecalciferol (vitamin D3) 125 125 mcg PO QAM 12/15/23 01/18/25 History mcg (5,000 unit) tablet (Vitamin D3) insulin lispro 100 unit/mL 5 unit subcut AC 06/07/24 01/18/25 History subcutaneous pen (Humalog KwikPen (U-100) Insulin) Daily Multi-Vitamin 1 tab PO DAILY 01/18/25 01/18/25 History aspirin 81 mg tablet,delayed 81 mg PO DAILY 01/18/25 01/18/25 History release fluoxetine 10 mg capsule 10 mg PO DAILY 01/18/25 01/18/25 History fluoxetine 40 mg capsule 40 mg PO DAILY 01/18/25 01/18/25 History magnesium hydroxide 400 mg/5 mL 30 ml PO DAILY PRN Constipation 01/18/25 01/18/25 History oral suspension (Milk of Magnesia) ondansetron HCl 4 mg tablet 4 mg PO Q8H PRN Nausea 01/18/25 01/18/25 History sevelamer carbonate 800 mg tablet 800 mg PO TIDWMEAL 01/18/25 01/18/25 History Patient History Medical History Adverse effect of anesthesia "Slow to wake" as per patient PONV (postoperative nausea and vomiting) Diverticular disease No hospitalizations Chronic sinusitis Hx of migraines Sleep apnea not currently using CPAP History of pneumonia Summer 2023 Presence of permanent central venous catheter (12/2023) Hyperlipidemia Per [facility] records Depression Per [facility] records History of non-ST elevation myocardial infarction (NSTEMI) Pt denies - Hx noted in previous records Chronically elevated troponins during 08/2023-10/2023, felt to be r/t elevated BP/CKD per inpatient [facility] records End stage renal disease dialysis Monday//Monday - [facility] Hypertension Stable as per patient Type 2 diabetes mellitus IDDM Surgical History Hx of cataract surgery left and right Hx of tubal ligation Hx of hysterectomy Hx of wisdom tooth extraction Hx of tonsillectomy Hx of colonoscopy History of nasal surgery Family History Other Breast cancer No pertinent family history Social History Smoking Status: Never smoker Second Hand Exposure: Yes (as child); Do You Dip or Chew Tobacco: No; Hx Alcohol Use: No Hx Substance Use: No Preferred Language: French Communication Ability: Effective 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 Gastrointestinal: Abdomen is soft, non distended, non tender, bowel sounds are present CVS: Regular rate and rhythm. No murmurs, rubs or gallops Musculoskeletal: No joint or muscle tenderness Extremities: Non tender, no edema, peripheral pulses are present Neuro: Oriented, no tremors, no focal neurological deficits Skin: No rashes Access: Left upper arm AV graft with good bruit Results & Data Vital Signs (Past 12 Hours) Vital Signs Temp Pulse Pulse Resp BP Pulse Ox O2 Del Method 01/19/25 09:00 Nasal Cannula 01/19/25 07:52 01/19/25 07:39 36.3 C L 86 22 133/85 99 Nasal Cannula 01/19/25 07:20 88 01/19/25 03:07 36.4 C L 86 18 132/77 97 Nasal Cannula O2 Flow Rate 01/19/25 09:00 2 01/19/25 07:52 2 01/19/25 07:39 4 01/19/25 07:20 01/19/25 03:07 Laboratory Results 01/19/25 05:56 01/18/25 01/19/25 10:56 05:56 WBC 24.94 H RBC 2.81 L MCV 97.9 MCH 31.3 MCHC 32.0 RDW Std Deviation 48.2 H RDW Coeff of Aure 13.3 Plt Count 247 MPV 9.5 Albumin 4.0 3.6 (2) Right lower lobe pneumonia Pneumonia type: due to unspecified organism Qualified Code(s): J18.9 - Pneumonia, unspecified organism (3) Sepsis Acute respiratory failure type: with hypoxia Sepsis acute organ dysfunction status: with acute organ dysfunction Sepsis type: sepsis due to unspecified organism Severe sepsis acute organ dysfunction type: acute respiratory failure Severe sepsis shock status: without septic shock Qualified Code(s): A41.9 - Sepsis, unspecified organism; R65.20 - Severe sepsis without septic shock; J96.01 - Acute respiratory failure with hypoxia
--- NOTE | 2025-01-19 12:03 | Electrocardiogram Report ---
Test Reason : Blood Pressure : */* mmHG Vent. Rate : 89 BPM Atrial Rate : 89 BPM P-R Int : 184 ms QRS Dur : 94 ms QT Int : 380 ms P-R-T Axes : 65 -14 31 degrees QTcB Int : 462 ms Normal sinus rhythm Minimal voltage criteria for LVH, may be normal variant ( R in aVL ) Borderline ECG When compared with ECG of 18-Jan-2025 11:02, No significant change was found Confirmed by Everardo Oliva ([id number]) on 01/19/2025 12:02:53 PM Referred By: REFERRED SELF Confirmed By: Everardo Oliva
[2025-01-19] MEDS: INSULIN ASPART PER UNIT CHARGE SC SCH (12:13)
[2025-01-19] MEDS: LANTUS PER UNIT CHARGE SC SCH (21:27)
[2025-01-20] MEDS ORDERED: SODIUM CHLORIDE 0.9% 1,000 ML IV PRN (07:00)
[2025-01-20 07:11] LABS: Hematocrit (blood only) 27.5 % (37.0-47.0); Hemoglobin 8.9 g/dl (12.0-16.0); Mean Corpuscular Hemoglobin 31.8 pg (25.0-34.0); Mean Corpuscular Volume 98.2 fL (80.0-100.0); Platelet Count 266 K/uL (130-400); RDW Standard Deviation 47.2 fL (36.4-46.3); Red Blood Count 2.80 M/uL (4.20-5.40); White Blood Count 20.68 K/ul (4.8-10.8)
[2025-01-20 07:29] LABS: Anion Gap 14.0 (3-11); Blood Urea Nitrogen 82.0 mg/dl (6-23); Calcium 9.3 mg/dl (8.6-10.3); Carbon Dioxide 23.0 mmol/L (21-32); Chloride 97.0 mmol/L (98-107); Creatinine Clr Calc Pharmacy 8.3 ml/min; Glucose 123.0 mg/dl (70-99(Fasting)); Magnesium 1.9 mg/dl (1.7-2.4); Potassium 4.4 mmol/L (3.5-5.1); Sodium 134.0 mmol/L (136-145)
[2025-01-20] MEDS ORDERED: OSELTAMIVIR PHOSPHATE 30 MG CAP PO SCH (09:45)
[2025-01-20] MEDS: BENZONATATE 100 MG CAPSULE PO PRN (09:54)
--- NOTE | 2025-01-20 10:46 | Hospitalist Progress Note ---
Date of Service January 20, 2025 Assessment & Plan (1) Sleep apnea: (2) History of pneumonia: (3) Hyperlipidemia: (4) Depression: (5) History of non-ST elevation myocardial infarction (NSTEMI): (6) Type 2 diabetes mellitus: Plan 74-year-old female who presented to the ER 01/18/25 with hypoxia, shortness of breath that started overnight. 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 - Vanc dc'd, c/w zosyn 01/18 and doxy 01/18. dc doxy. Switch zosyn to rocephin 01/20 - Pulm evaled, appreciate recs. c/w Nebulizers, now on RA. 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 - ID consult Hx ESRD on HD: Consult nephrology, normal dialysis days Monday//sat Hx LINDSEY -does not use CPAP at home, unable to tolerate Hx DM: Managed on Toujeo/lispro SSI/4 times daily BGM, recheck A1C - 5.1 Depression: Continue fluoxetine Hx GERD: Continue omeprazole Full code DVT prophylaxis: hep sub - q PT/OT, CM to assist w/ dc plan Admission and Anticipated Discharge Date Admission Date: January 18, 2025 Subjective Patient was seen and examined at bedside. Patient was lying in bed, on RA. Reports feeling rundown and tired, not able to sleep overnight Reports cough bugging her. Reports being able to eat ok, and had 2 loose stool overnight. Physical Exam Physical Exam: GENERAL: Alert and oriented x3. NAD, on RA, appears frail/ill HEENT: No pallor, no icterus. Pupils equal, round and reactive to light. Oral mucosa moist. NECK: No JVD, no neck masses. HEART: S1 and S2 heard. Regular rate and rhythm. No murmur, no gallop. RESPIRATORY SYSTEM: Normal AP diameter. No accessory muscle use. No wheezing, rll crackles ABDOMEN: Soft, bowel sounds present, nontender, no distention. CENTRAL NERVOUS SYSTEM: No facial droop. Speech is clear. Obeys simple commands. Moves extremities. EXTREMITIES: No edema, no erythema seen. Results & Data Results & Data Vital Signs (Past 12 Hours) Vital Signs Temp Pulse Pulse Resp BP BP Pulse Ox 01/20/25 10:30 79 103/48 L 01/20/25 10:16 95 H 110/70 01/20/25 10:15 86 125/60 01/20/25 09:45 98 H 117/74 01/20/25 09:30 71 122/100 01/20/25 09:15 94 H 144/66 H 01/20/25 09:11 95 H 135/95 01/20/25 09:10 92 01/20/25 09:05 01/20/25 09:05 36.7 C 93 H 01/20/25 08:33 36.9 C 95 H 18 151/76 H 92 01/20/25 07:28 89 01/20/25 03:35 36.8 C 87 18 136/72 99 O2 Del Method O2 Flow Rate 01/20/25 10:30 01/20/25 10:16 01/20/25 10:15 01/20/25 09:45 01/20/25 09:30 01/20/25 09:15 01/20/25 09:11 01/20/25 09:10 Room Air 01/20/25 09:05 Room Air 01/20/25 09:05 01/20/25 08:33 Room Air 01/20/25 07:28 01/20/25 03:35 Oxymask 2
--- NOTE | 2025-01-20 11:40 | Nephrology Progress Note ---
Date of Service January 20, 2025 Assessment & Plan (1) ESRD (end stage renal disease) on dialysis: Plan: patient with ESRD on dialysis Monday. Patient missed outpatient dialysis on Monday. She is now admitted with right lower lobe pneumonia. Electrolytes are stable and no signs of volume overload. No indication for dialysis today. Will dialyze her tomorrow for 3-1/2 hours target UF 2 L. she can be dialyzed on a Monday schedule while inpatient and will be switched to TTS on discharge. patient has prolonged bleeding from the AV fistula. She will need vascular intervention but this can be done as an outpatient. Will only give heparin bolus at the beginning. K 4.4 today >2k bath ok care coordinated w/ dr dina jean-baptiste bacteremia, dialysis dispo; we are in agreement (2) Right lower lobe pneumonia: Plan: Patient with right lower lobe pneumonia, presume H flu. She is getting vancomycin and Zosyn renally dosed. (3) Sepsis: Plan: Due to pneumonia, influenza and Blood cultures growing Gram-negative bacilli. Patient is on vancomycin and Zosyn as above. Avoid hypotension. No CONNER while w/ bacteremia (4) Bacteremia: Plan: HFlu on 01/18; also w/ H flu serology positive. -conitnue abtx -WBC count coming down though still extremely elevated Admission and Anticipated Discharge Date Admission Date: January 18, 2025 Subjective non acute interval clinical events. c/o poor sleep; still w/ deep /thick cough. on facemask when I saw her this am about 0730 Review of Systems 2 Review of Systems: All systems reviewed & are unremarkable except as noted in Subjective Physical Exam 2 Constitutional: well developed, well nourished, + obese and cooperative; no acute distress Eyes: EOM intact bilaterally ENMT: Mouth: + dry oral mucous membranes Respiratory: normal respiratory effort Auscultation: + diminished lung sounds and + crackles (dependent R sided) Cardiovascular: HS distant; AVG LUE + t/b no redness/tenderness/induration Gastrointestinal (Abdomen): Inspection/Auscultation: normal bowel sounds P ercussion/Palpation: abdomen soft; abdomen nontender Musculoskeletal: Extremities: strength 5/5 throughout Skin: no rashes, warm and dry Neurologic: navas, fluent speech, no tremor Results & Data Vital Signs (Past 12 Hours) Vital Signs Temp Pulse Pulse Resp BP BP Pulse Ox 01/20/25 10:45 78 108/58 L 01/20/25 10:30 79 103/48 L 01/20/25 10:16 95 H 110/70 01/20/25 10:15 86 125/60 01/20/25 09:45 98 H 117/74 01/20/25 09:30 71 122/100 01/20/25 09:15 94 H 144/66 H 01/20/25 09:11 95 H 135/95 01/20/25 09:10 92 01/20/25 09:05 01/20/25 09:05 36.7 C 93 H 01/20/25 08:33 36.9 C 95 H 18 151/76 H 92 01/20/25 07:28 89 01/20/25 03:35 36.8 C 87 18 136/72 99 O2 Del Method O2 Flow Rate 01/20/25 10:45 01/20/25 10:30 01/20/25 10:16 01/20/25 10:15 01/20/25 09:45 01/20/25 09:30 01/20/25 09:15 01/20/25 09:11 01/20/25 09:10 Room Air 01/20/25 09:05 Room Air 01/20/25 09:05 01/20/25 08:33 Room Air 01/20/25 07:28 01/20/25 03:35 Oxymask 2 Laboratory Results 01/20/25 06:03 01/20/25 06:03 (2) Right lower lobe pneumonia Pneumonia type: due to unspecified organism Qualified Code(s): J18.9 - Pneumonia, unspecified organism (3) Sepsis Acute respiratory failure type: with hypoxia Sepsis acute organ dysfunction status: with acute organ dysfunction Sepsis type: sepsis due to unspecified organism Severe sepsis acute organ dysfunction type: acute respiratory failure Severe sepsis shock status: without septic shock Qualified Code(s): A41.9 - Sepsis, unspecified organism; R65.20 - Severe sepsis without septic shock; J96.01 - Acute respiratory failure with hypoxia
--- NOTE | 2025-01-20 13:24 | Infectious Disease Consult ---
Date of Service January 20, 2025 Telehealth Information I performed this visit using a real-time telehealth connection between my location and the patients location ([facility]). After connecting through interactive tele-video, patient was identified by name and date of and/or wristband check.Patient (or authorized healthcare textile designs sales representative) was informed that this was a telemedicine visit and it was being conducted confidentially over secure lines. My office door was closed and no o ne else was present in the room with me.Patient (or authorized healthcare textile designs sales representative) provided consent to proceed with the visit, expressed an understanding of privacy and security of the telemedicine visit, and gave permission to have a hospital textile designs sales representative in the room in order to assist with the visit and to conduct portions of the visit, as needed. I informed the patient (or authorized healthcare textile designs sales representative) that I reviewed their record and presented the opportunity for them to ask any questions regarding the visit today. The patient agreed to participate. Assessment & Plan (1) Pneumonia due to hemophilus influenzae: (2) Bacteremia: (3) Acute hypoxic respiratory failure: (4) ESRD (end stage renal disease) on dialysis: Plan Please discontinue IV ceftriaxone and start on IV Unasyn. Aim for a total duration of 7 days with anticipated end date of 01/25/2025. Can continue IV Unasyn while inpatient and send out on oral Augmentin 875/125 twice daily to complete a course of treatment. There is no need for droplet isolation as the Haemophilus influenzae is not contagious. History of Present Illness History of Present Illness Ms. Sauer is a 74-year-old woman, [facility], with past medical history of CAD, type 2 diabetes, dyslipidemia, obesity with obstructive sleep apnea, end-stage renal disease on hemodialysis, and major depressive disorder who was admitted to [facility] on 01/18/2025 because of acute progressive shortness of breath. Per patient report, all symptoms started overnight (before the day of presentation), and were associated with cough, productive with yellowish sputum, as well as nausea, vomiting and diarrhea. On presentation, she was hypoxic with SpO2 in the 70s and was initially on non-rebreather mask but then shifted to BiPAP. Initial workup showed leukocytosis of around 25 (ANC 22), elevated lactic acid at 3, and shortly after admission, the blood Cx came back positive for H. influenzae. CXR demonstrated Rt lower lobe pneumonia. ID team was consulted for further recommendations and to help guide antibiotic treatment. Allergies Allergy/AdvReac Type Severity Reaction Status Date / Time No Known Allergies Allergy Verified 08/19/24 13:29 Home Medications Medication Instructions Recorded Confirmed Type cyanocobalamin (vitamin B-12) 500 500 mcg PO QAM 03/13/19 01/18/25 History mcg tablet (Vitamin B-12) acetaminophen 325 mg tablet 325 mg PO Q6H PRN Pain 09/09/23 01/18/25 History (Tylenol) fluticasone propionate 50 2 spray intranasal QAM 09/09/23 01/18/25 History mcg/actuation nasal spray,suspension omega-3 fatty acids 1,000 mg 1,000 mg PO QAM 09/09/23 01/18/25 History capsule rosuvastatin 10 mg tablet 10 mg PO HS 09/09/23 01/18/25 History cetirizine 10 mg tablet (Zyrtec) 10 mg PO QAM 10/17/23 01/18/25 History omeprazole 40 mg capsule,delayed 40 mg PO QAM 10/17/23 01/18/25 History release insulin glargine U-300 conc 300 3 unit subcut QPM 12/14/23 01/18/25 History unit/mL (1.5 mL) subcutaneous pen (Toujeo SoloStar U-300 Insulin) cholecalciferol (vitamin D3) 125 125 mcg PO QAM 12/15/23 01/18/25 History mcg (5,000 unit) tablet (Vitamin D3) insulin lispro 100 unit/mL 5 unit subcut AC 06/07/24 01/18/25 History subcutaneous pen (Humalog KwikPen (U-100) Insulin) Daily Multi-Vitamin 1 tab PO DAILY 01/18/25 01/18/25 History aspirin 81 mg tablet,delayed 81 mg PO DAILY 01/18/25 01/18/25 History release fluoxetine 10 mg capsule 10 mg PO DAILY 01/18/25 01/18/25 History fluoxetine 40 mg capsule 40 mg PO DAILY 01/18/25 01/18/25 History magnesium hydroxide 400 mg/5 mL 30 ml PO DAILY PRN Constipation 01/18/25 01/18/25 History oral suspension (Milk of Magnesia) ondansetron HCl 4 mg tablet 4 mg PO Q8H PRN Nausea 01/18/25 01/18/25 History sevelamer carbonate 800 mg tablet 800 mg PO TIDWMEAL 01/18/25 01/18/25 History Patient History Medical History Adverse effect of anesthesia "Slow to wake" as per patient PONV (postoperative nausea and vomiting) Diverticular disease No hospitalizations Chronic sinusitis Hx of migraines Sleep apnea not currently using CPAP History of pneumonia Summer 2023 Presence of permanent central venous catheter (12/2023) Hyperlipidemia Per [facility] records Depression Per [facility] records History of non-ST elevation myocardial infarction (NSTEMI) Pt denies - Hx noted in previous records Chronically elevated troponins during 08/2023-10/2023, felt to be r/t elevated BP/CKD per inpatient [facility] records End stage renal disease dialysis Monday//Monday - [facility] Hypertension Stable as per patient Type 2 diabetes mellitus IDDM Surgical History Hx of cataract surgery left and right Hx of tubal ligation Hx of hysterectomy Hx of wisdom tooth extraction Hx of tonsillectomy Hx of colonoscopy History of nasal surgery Family History Other Breast cancer No pertinent family history Social History Smoking Status: Never smoker Second Hand Exposure: Yes (as child); Do You Dip or Chew Tobacco: No; Hx Alcohol Use: No Hx Substance Use: No Preferred Language: Serbian Communication Ability: Effective Digital Media Designer Required: No Beliefs That Will Affect Care: None Current Living Situation: Senior Care Current Living Situation Comment: [facility] Feels Safe at Home: Yes Assistive Devices: CPAP, Walker and Wheelchair Review of Systems Negative except for what was mentioned in the H&P. Physical Exam Could not be performed as the visit was conducted via TeleMed. Results & Data Vital Signs (Past 12 Hours) Vital Signs Temp Pulse Pulse Resp BP BP Pulse Ox 01/20/25 12:45 87 141/77 H 01/20/25 12:30 89 153/85 H 01/20/25 12:15 87 139/76 01/20/25 12:00 70 133/78 01/20/25 11:45 90 149/70 H 01/20/25 11:30 85 131/59 L 01/20/25 11:00 81 102/58 L 01/20/25 10:45 78 108/58 L 01/20/25 10:30 79 103/48 L 01/20/25 10:16 95 H 110/70 01/20/25 10:15 86 125/60 01/20/25 09:45 98 H 117/74 01/20/25 09:30 71 122/100 01/20/25 09:15 94 H 144/66 H 01/20/25 09:11 95 H 135/95 01/20/25 09:10 92 01/20/25 09:05 01/20/25 09:05 36.7 C 93 H 01/20/25 08:33 36.9 C 95 H 18 151/76 H 92 01/20/25 07:28 89 01/20/25 03:35 36.8 C 87 18 136/72 99 O2 Del Method O2 Flow Rate 01/20/25 12:45 01/20/25 12:30 01/20/25 12:15 01/20/25 12:00 01/20/25 11:45 01/20/25 11:30 01/20/25 11:00 01/20/25 10:45 01/20/25 10:30 01/20/25 10:16 01/20/25 10:15 01/20/25 09:45 01/20/25 09:30 01/20/25 09:15 01/20/25 09:11 01/20/25 09:10 Room Air 01/20/25 09:05 Room Air 01/20/25 09:05 01/20/25 08:33 Room Air 01/20/25 07:28 01/20/25 03:35 Oxymask 2 Laboratory Results Microbiology: 01/18: 1 of 4 bottles of blood Cx positive for H. Influenzae Diagnostic Findings CXR on 01/18: Right lower lobe pneumonia
[2025-01-20] MEDS: cefTRIAXone SODIUM 2,000 MG/50 ML BAG IV SCH (13:44)
[2025-01-20] MEDS: ADVANCED PROBIOTIC 625 MG CAPSULE PO SCH (13:51)
[2025-01-20] MEDS: HEPARIN SOD (PORCINE) 1000 UNIT/ML IV ONE (14:01)
--- NOTE | 2025-01-20 15:17 | Electrocardiogram Report ---
Test Reason : Blood Pressure : */* mmHG Vent. Rate : 89 BPM Atrial Rate : 89 BPM P-R Int : 172 ms QRS Dur : 96 ms QT Int : 374 ms P-R-T Axes : 56 -9 48 degrees QTcB Int : 455 ms Normal sinus rhythm Normal ECG When compared with ECG of 19-Jan-2025 05:35, No significant change was found Confirmed by Everardo Oliva ([id number]) on 01/20/2025 3:16:58 PM Referred By: REFERRED SELF Confirmed By: Everardo Oliva
[2025-01-21] MEDS ORDERED: PROMETHAZINE 6.25 MG/50.25 ML BAG IV PRN (01:31)
[2025-01-21 06:40] LABS: Hematocrit (blood only) 26.2 % (37.0-47.0); Hemoglobin 8.8 g/dl (12.0-16.0); Mean Corpuscular Hemoglobin 32.0 pg (25.0-34.0); Mean Corpuscular Volume 95.3 fL (80.0-100.0); Platelet Count 250 K/uL (130-400); RDW Standard Deviation 45.2 fL (36.4-46.3); Red Blood Count 2.75 M/uL (4.20-5.40); White Blood Count 18.84 K/ul (4.8-10.8)
[2025-01-21 07:21] LABS: Anion Gap 12.0 (3-11); Blood Urea Nitrogen 38.0 mg/dl (6-23); Calcium 9.2 mg/dl (8.6-10.3); Carbon Dioxide 27.0 mmol/L (21-32); Chloride 97.0 mmol/L (98-107); Creatinine Clr Calc Pharmacy 12.1 ml/min; Glucose 138.0 mg/dl (70-99(Fasting)); Magnesium 1.8 mg/dl (1.7-2.4); Potassium 3.5 mmol/L (3.5-5.1); Sodium 136.0 mmol/L (136-145)
[2025-01-21] MEDS: AMPICILLIN/SULBACTAM SOD 3,000 MG/100 ML BAG IV SCH (09:44)
--- NOTE | 2025-01-21 13:21 | XRay Report ---
XR chest 1V portable CLINICAL HISTORY: eval right lower lobe inflitrates/PNA COMPARISON STUDY: 01/18/2025 FINDINGS: There is stable mild cardiomegaly with mild pulmonary vascular congestion. There is patchy opacity at the right lower lung which is minimally improved. No pleural effusion or pneumothorax seen . IMPRESSION: Persistent pneumonia at the right lower lung, minimally improved. ACT 112: Negative or not required by law. Electronically signed by: Max Hart M.D. 01/21/2025 1:20 PM
--- NOTE | 2025-01-21 13:26 | Nephrology Progress Note ---
Date of Service January 21, 2025 Assessment & Plan (1) ESRD (end stage renal disease) on dialysis: Plan: patient with ESRD on dialysis Monday. Patient missed outpatient dialysis on Monday. She is now admitted with right lower lobe pneumonia. Electrolytes are stable and with mild volume overload ongoing on CXR today(9images personally reviewed). No indication for dialysis today. Will dialyze her tomorrow for 3-1/2 hours target UF 2.5-3 L. she can be dialyzed on a Monday schedule while inpatient; may do extra tx on 01/23 to optimize vol status if still here; d/c HD schedule to depend on d/c dispo. patient has prolonged bleeding from the AV Graft. She will need vascular intervention but this can be done as an outpatient. Will only give heparin bolus at the beginning. K 3.5 today > will still order 2k bath for am care coordinated w/ dr dina jean-baptiste bacteremia, dialysis dispo; we are in agreement (2) Right lower lobe pneumonia: Plan: Patient with right lower lobe pneumonia, presume H flu. had been getting vancomycin and Zosyn renally dosed; switched January 21 2 Unasyn. (3) Bacteremia: Plan: HFlu on 01/18; also w/ H flu serology positive. -continue abtx -WBC count coming down further though still extremely elevated and remains higher than admission Admission and Anticipated Discharge Date Admission Date: January 18, 2025 Subjective feeling a bit better but still with deep rattling cough and marked exertional dyspnea if she does anything other than lying in bed. Taken to room air mid day today. Endorses issues with her AV fistula yesterday. Review of Systems 2 Review of Systems: All systems reviewed & are unremarkable except as noted in Subjective Physical Exam 2 Constitutional: well developed, well nourished, + obese and cooperative; no acute distress Eyes: EOM intact bilaterally ENMT: Mouth: + dry oral mucous membranes Respiratory: + labored breathing ( slight) and + coug h (thick frequent) A uscultation: + diminished lung sounds Gastrointestinal (Abdomen): Inspection/Auscultation: normal bowel sounds P ercussion/Palpation: abdomen soft; abdomen nontender Musculoskeletal: Extremities: strength 5/5 throughout Skin: no rashes, warm and dry Results & Data Vital Signs (Past 12 Hours) Vital Signs Temp Pulse Pulse Resp BP Pulse Ox O2 Del Method 01/21/25 11:07 36.7 C 90 19 150/74 H 90 Room Air 01/21/25 08:00 Nasal Cannula 01/21/25 08:00 94 H 01/21/25 06:59 36.6 C 91 H 19 190/81 H 90 Nasal Cannula 01/21/25 02:47 37.2 C 95 H 20 164/77 H 93 Nasal Cannula O2 Flow Rate 01/21/25 11:07 01/21/25 08:00 2 01/21/25 08:00 01/21/25 06:59 3 01/21/25 02:47 3 Laboratory Results 01/21/25 06:14 01/21/25 06:14 (2) Right lower lobe pneumonia Pneumonia type: due to unspecified organism Qualified Code(s): J18.9 - Pneumonia, unspecified organism
--- NOTE | 2025-01-21 14:49 | Pulmonology Progress Note ---
Date of Service January 21, 2025 Assessment & Plan (1) Right lower lobe pneumonia: Pneumonia type: due to unspecified organism Qualified Code(s): J 18.9 - Pneumonia, unspecified organism (2) Acute respiratory failure: Respiratory failure complication: hypoxia Qualified Code(s): J 96.01 - Acute respiratory failure with hypoxia Plan Impression: 74-year-old female with end-stage renal disease on dialysis admitted with a right lower lobe pneumonia. Recommendations: 1. Pneumonia: Healthcare associated given the patient is a dialysis patient. Patient received Zosyn, Doxy, and vancomycin in the emergency room which should be more than adequate coverage. MRSA negative. ABX broadened from Unasyn to zosyn as patient not improving and significant bump in procal. Continue to follow clinical course including oxygen requirement, fever curve, and leukocytosis. 2. Hypoxemia: Secondary to #1. Continue to wean oxygen as tolerated. Incentive spirometry. Out of bed to chair as tolerated. 3. Hypercarbic respiratory failure: Present on presentation but appears to have resolved with application of noninvasive positive pressure ventilation. The patient is at risk for hypercarbia and may have potential underlying sleep disordered breathing. Outpatient sleep study should be considered. Patient has not tolerated CPAP in the past. Would apply a noninvasive positive pressure ventilation should the patient have altered mental status or evidence of CO2 retention. Avoid narcotics, benzodiazepines, or other potential respiratory suppressant medications. 4. Management of the patient's other medical issues is deferred to the primary admitting service. Thanks the opportunity participate in the care of this patient. Will continue to follow with you. Feel free to contact us with questions or concerns 40 minutes is he time spent reviewing the chart, obtaining history, performing the physical exam, and updating the patient and bedside nurse. Admission and Anticipated Discharge Date Admission Date: January 18, 2025 Subjective "I just feel tired and run down." Patient complaining of no energy and shortness of breath with activity. SpO2 92- 94% on room air. Patient coughing and occasionally productive with yellow phlegm. Procal up to 29.90. CXR shows stable to slightly improved aeration in right lower lobe. CT chest w/o contrast ordered. Antibiotics increased to Zosyn. ID following. Review of Systems 2 Review of Systems: All systems reviewed & are unremarkable except as noted in HPI & below Physical Exam 2 Physical Exam: VITALS: Reviewed. WEIGHT/BMI reviewed. GEN: ill appearing, well-developed, NAD. PSYCH: Good Judgment. AOx3. Normal memory, mood, and affect. HEENT -Head: NC/AT; -Eyes: PERRL, EOMI. No discharge or redn ess; -Ears: External ears are normal. -Nose: Normal nares. NECK: Supple, with no masses. CV: RRR, no m/r/g. LUNGS: CTAB, no w/r/c. ABD: N/A : N/A SKIN: Warm, well perfused. No skin rashes or abnormal lesions. MSK: No deformities, Normal gait. EXT: No clubbing, cyanosis, or edema. NEURO: Normal muscle strength and tone. No focal deficits. Results & Data Results & Data Vital Signs (Past 12 Hours) Vital Signs Temp Pulse Pulse Resp BP Pulse Ox Pulse Ox 01/21/25 14:18 91 01/21/25 11:07 36.7 C 90 19 150/74 H 90 01/21/25 08:00 01/21/25 08:00 94 H 01/21/25 06:59 36.6 C 91 H 19 190/81 H 90 Pulse Ox Pulse Ox O2 Del Method O2 Flow Rate O2 Flow Rate O2 Flow Rate O2 Flow Rate 01/21/25 14:18 91 87 L 0 0 0 01/21/25 11:07 Room Air 01/21/25 08:00 Nasal Cannula 2 01/21/25 08:00 01/21/25 06:59 Nasal Cannula 3 Laboratory Results 01/21/25 06:14 01/21/25 06:14 Abnormal Lab Results 01/20/25 01/20/25 01/21/25 16:21 20:23 06:14 WBC 18.84 H RBC 2.75 L Hgb 8.8 L Hct 26.2 L MCV 95.3 MCH 32.0 MCHC 33.6 RDW Std Deviation 45.2 RDW Coeff of Aure 13.1 Plt Count 250 MPV 9.5 Sodium 136 Potassium 3.5 D Chloride 97 L Carbon Dioxide 27 Anion Gap 12 H BUN 38 H D Creatinine 4.66 H* D Est Cr Clr Drug Dosing 12.1 eGFR 9.27 BUN/Creatinine Ratio 8.2 L Glucose 138 H POC Glucose 186 H 139 H Calcium 9.2 Phosphorus 3.9 Magnesium 1.8 Procalcitonin 01/21/25 01/21/25 01/21/25 07:01 11:06 13:08 WBC RBC Hgb Hct MCV MCH MCHC RDW Std Deviation RDW Coeff of Aure Plt Count MPV Sodium Potassium Chloride Carbon Dioxide Anion Gap BUN Creatinine Est Cr Clr Drug Dosing eGFR BUN/Creatinine Ratio Glucose POC Glucose 143 H 192 H Calcium Phosphorus Magnesium Procalcitonin 29.90 H Diagnostic Findings Chest X-Ray 01/21/25 12:51 XR chest 1V portable CLINICAL HISTORY: eval right lower lobe inflitrates/PNA COMPARISON STUDY: 01/18/2025 FINDINGS: There is stable mild cardiomegaly with mild pulmonary vascular congestion. There is patchy opacity at the right lower lung which is minimally improved. No pleural effusion or pneumothorax seen. IMPRESSION: Persistent pneumonia at the right lower lung, minimally improved. ACT 112: Negative or not required by law. Electronically signed by: Max Hart M.D. 01/21/2025 1:20 PM PG Care Time/CCT Total # of Minutes Spent Total Time Spent with Patient: Total time spent is greater than 50% in coordination of care (as documented) at patient's floor/unit and/or counseling patient: Coding Level of Care Code 26847 SUB INP/OBS CARE 2/35MIN Diagnoses Right lower lobe pneumonia J18.9 Pneumonia type: due to unspecified organism Acute respiratory failure J96.01 Respiratory failure complication: hypoxia
--- NOTE | 2025-01-21 15:04 | Hospitalist Progress Note ---
Date of Service January 21, 2025 Assessment & Plan (1) Sleep apnea: (2) History of pneumonia: (3) Hyperlipidemia: (4) Depression: (5) History of non-ST elevation myocardial infarction (NSTEMI): (6) Type 2 diabetes mellitus: Plan 74-year-old female who presented to the ER 01/18/25 with hypoxia, shortness of breath that started overnight. She is being managed for the following: Acute hypoxic respiratory failure Right lower lobe pneumonia: Gram neg bacteremia: Symptoms started overnight MANAGER RESORT, found to have fever of 100 F Hypoxic in the 70s on room air, improved on BiPAP on arrival to the ED VBG with mild acidosis on arrival, chest x-ray with right lower lobe pneumonia, viral panel negative Blood cultures - H influenzae, MRSA screen neg, H influenzae positive. - Switched zosyn 01/18 to rocephin 01/20 -- to unasyn 01/21---now on zosyn per pulm - Pulm evaled, follow further recs c/w Nebulizers, wean down O2 as anatoliy. No home O2 need MANAGER RESORT. - ID evaled, appreciate recs. - Pt reports overall feeling better, cough slightly better, wbc gradually trending down Hx ESRD on HD: Consult nephrology, normal dialysis days Monday//sat Hx LINDSEY -does not use CPAP at home, unable to tolerate Hx DM: Managed on Toujeo/lispro SSI/4 times daily BGM, recheck A1C - 5.1 Depression: Continue fluoxetine Hx GERD: Continue omeprazole Full code DVT prophylaxis: hep sub - q PT/OT, CM to assist w/ dc plan DC likely ling w/ pulm recs. c/w iv atb today. Admission and Anticipated Discharge Date Admission Date: January 18, 2025 Subjective Patient was seen and examined at bedside. Patient was lying in bed, on RA. Pt reports feeling better, reports better PO intake Had 2 loose BM overnight pt's dtr at bedside who was also updated on plan of care. Physical Exam Physical Exam: GENERAL: Alert and oriented x3. NAD, on 2L NC O2, appears frail/ill HEENT: No pallor, no icterus. Pupils equal, round and reactive to light. Oral mucosa moist. NECK: No JVD, no neck masses. HEART: S1 and S2 heard. Regular rate and rhythm. No murmur, no gallop. RESPIRATORY SYSTEM: Normal AP diameter. No accessory muscle use. No wheezing, rll crackles ABDOMEN: Soft, bowel sounds present, nontender, no distention. CENTRAL NERVOUS SYSTEM: No facial droop. Speech is clear. Obeys simple commands. Moves extremities. EXTREMITIES: No edema, no erythema seen. Results & Data Results & Data Vital Signs (Past 12 Hours) Vital Signs Temp Pulse Pulse Resp BP Pulse Ox Pulse Ox 01/21/25 14:18 91 01/21/25 11:07 36.7 C 90 19 150/74 H 90 01/21/25 08:00 01/21/25 08:00 94 H 01/21/25 06:59 36.6 C 91 H 19 190/81 H 90 Pulse Ox Pulse Ox O2 Del Method O2 Flow Rate O2 Flow Rate O2 Flow Rate O2 Flow Rate 01/21/25 14:18 91 87 L 0 0 0 01/21/25 11:07 Room Air 01/21/25 08:00 Nasal Cannula 2 01/21/25 08:00 01/21/25 06:59 Nasal Cannula 3
[2025-01-21] MEDS: PIPERACILLIN/TAZOBACTAM 4.5 GM/100 ML BAG IV STA (15:45)
--- NOTE | 2025-01-21 16:46 | CT Scan Report ---
Clinical history: Evaluate pneumonia Technique: Axial computed tomography images were obtained of the chest without intravenous contrast Comparison is made to the prior CT dated 11/01/2023 Findings: There is right lower lobe alveolar consolidation, consistent with pneumonia. There are mild multifocal centrilobular interstitial groundglass opacities bilaterally, consistent with pneumonia as well There is a small right pleural effusion. There is no left pleural effusion or pneumothorax. There is no sign of pulmonary fibrosis or other diffuse interstitial process. No endobronchial lesion is seen There is no mediastinal, hilar, or axillary adenopathy. The thoracic aorta is of normal caliber. There is no pericardial effusion. There is coronary atherosclerosis There is a small hiatal hernia. There are partially visualized left renal cysts as well as a hyperdense left renal lesion that is likely a proteinaceous or hemorrhagic cyst. There is thoracic scoliosis and degenerative disc disease. No fracture is seen. No focal osseous lesion is evident Impression: 1. Right worse than left pneumonia 2. Small right pleural effusion, decreased in size 3. Resolution of the previously seen left pleural effusion 4. Small hiatal hernia 5. Partially visualized left renal cysts and hyperdense left renal lesion that is indeterminate in nature but likely a proteinaceous or hemorrhagic cyst Electronically signed by Amor Chiang 01-21-2025 4:46 PM
[2025-01-21] MEDS: PIPERACILLIN/TAZOBACTAM 4.5 GM/100 ML BAG IV SCH (23:10)
[2025-01-22 06:55] LABS: Hematocrit (blood only) 28.3 % (37.0-47.0); Hemoglobin 8.9 g/dl (12.0-16.0); Mean Corpuscular Hemoglobin 30.3 pg (25.0-34.0); Mean Corpuscular Volume 96.3 fL (80.0-100.0); Platelet Count 265 K/uL (130-400); RDW Standard Deviation 46.0 fL (36.4-46.3); Red Blood Count 2.94 M/uL (4.20-5.40); White Blood Count 15.17 K/ul (4.8-10.8)
[2025-01-22] MEDS ORDERED: SODIUM CHLORIDE 0.9% 1,000 ML IV PRN (07:00)
[2025-01-22 07:43] LABS: Anion Gap 13.0 (3-11); Blood Urea Nitrogen 47.0 mg/dl (6-23); Calcium 9.3 mg/dl (8.6-10.3); Carbon Dioxide 25.0 mmol/L (21-32); Chloride 96.0 mmol/L (98-107); Creatinine Clr Calc Pharmacy 10.1 ml/min; Glucose 146.0 mg/dl (70-99(Fasting)); Magnesium 1.9 mg/dl (1.7-2.4); Potassium 3.4 mmol/L (3.5-5.1); Sodium 134.0 mmol/L (136-145)
--- NOTE | 2025-01-22 13:37 | Pulmonology Progress Note ---
Date of Service January 22, 2025 Assessment & Plan (1) Right lower lobe pneumonia: Pneumonia type: due to unspecified organism Qualified Code(s): J 18.9 - Pneumonia, unspecified organism (2) Acute respiratory failure: Respiratory failure complication: hypoxia Qualified Code(s): J 96.01 - Acute respiratory failure with hypoxia Plan Impression: 74-year-old female with end-stage renal disease on dialysis admitted with a right lower lobe pneumonia. Recommendations: 1. Pneumonia: Healthcare associated given the patient is a dialysis patient. Patient received Zosyn, Doxy, and vancomycin in the emergency room which should be more than adequate coverage. MRSA negative. ABX broadened from Unasyn to zosyn on 01/22/2025 as patient not improving and significant bump in procal. Continue to follow clinical course including oxygen requirement, fever curve, and leukocytosis. Will repeat procal in am. 2. Hypoxemia: Secondary to #1. Continue to wean oxygen as tolerated. Currently down to 1L NC. Incentive spirometry. Out of bed to chair as tolerated. 3. Hypercarbic respiratory failure: Present on presentation but appears to have resolved with application of noninvasive positive pressure ventilation. The patient is at risk for hypercarbia and may have potential underlying sleep disordered breathing. Outpatient sleep study should be considered. Patient has not tolerated CPAP in the past. Would apply a noninvasive positive pressure ventilation should the patient have altered mental status or evidence of CO2 retention. Avoid narcotics, benzodiazepines, or other potential respiratory suppressant medications. 4. Management of the patient's other medical issues is deferred to the primary admitting service. Thanks the opportunity participate in the care of this patient. Will continue to follow with you. Feel free to contact us with questions or concerns 38 minutes is he time spent reviewing the chart, obtaining history, performing the physical exam, and updating the patient and bedside nurse. Admission and Anticipated Discharge Date Admission Date: January 18, 2025 Subjective ABX broadened to zosyn yesterday after patient nt clinically improving and significant pump in procal.Patient on 1L NC with SpO2 95%. Patient plan to get HD today. Review of Systems 2 Review of Systems: All systems reviewed & are unremarkable except as noted in HPI & below Physical Exam 2 Physical Exam: VITALS: Reviewed. WEIGHT/BMI reviewed. GEN: ill appearing, well-developed, NAD. PSYCH: Good Judgment. AOx3. Normal memory, mood, and affect. HEENT -Head: NC/AT; -Eyes: PERRL, EOMI. No discharge or redn ess; -Ears: External ears are normal. -Nose: Normal nares. NECK: Supple, with no masses. CV: RRR, no m/r/g. LUNGS: CTAB, no w/r/c. ABD: N/A : N/A SKIN: Warm, well perfused. No skin rashes or abnormal lesions. MSK: No deformities, Normal gait. EXT: No clubbing, cyanosis, or edema. NEURO: Normal muscle strength and tone. No focal deficits. Results & Data Results & Data Vital Signs (Past 12 Hours) Vital Signs Temp Pulse Pulse Pulse Resp BP BP 01/22/25 13:00 57 L 110/56 L 01/22/25 12:30 91 H 144/70 H 01/22/25 12:00 85 133/55 L 01/22/25 11:30 82 133/63 01/22/25 11:00 83 147/74 H 01/22/25 10:30 83 162/79 H 01/22/25 10:00 88 166/77 H 01/22/25 09:53 85 01/22/25 09:37 83 178/84 H 01/22/25 09:27 36.5 C 91 H 01/22/25 08:00 01/22/25 07:07 36.9 C 82 169/67 H 01/22/25 03:00 36.9 C 81 21 161/70 H Pulse Ox O2 Del Method O2 Flow Rate 01/22/25 13:00 01/22/25 12:30 01/22/25 12:00 01/22/25 11:30 01/22/25 11:00 01/22/25 10:30 01/22/25 10:00 01/22/25 09:53 01/22/25 09:37 01/22/25 09:27 01/22/25 08:00 Nasal Cannula 1 01/22/25 07:07 95 Nasal Cannula 1 01/22/25 03:00 97 Nasal Cannula 1 Laboratory Results 01/22/25 06:09 01/22/25 06:09 Abnormal Lab Results 01/21/25 01/21/25 01/21/25 13:08 15:58 20:06 WBC RBC Hgb Hct MCV MCH MCHC RDW Std Deviation RDW Coeff of Aure Plt Count MPV Sodium Potassium Chloride Carbon Dioxide Anion Gap BUN Creatinine Est Cr Clr Drug Dosing eGFR BUN/Creatinine Ratio Glucose POC Glucose 130 H 146 H Calcium Phosphorus Magnesium Procalcitonin 29.90 H 01/22/25 01/22/25 06:09 07:04 WBC 15.17 H RBC 2.94 L Hgb 8.9 L Hct 28.3 L MCV 96.3 MCH 30.3 MCHC 31.4 L RDW Std Deviation 46.0 RDW Coeff of Aure 13.1 Plt Count 265 MPV 9.5 Sodium 134 L Potassium 3.4 L Chloride 96 L Carbon Dioxide 25 Anion Gap 13 H BUN 47 H Creatinine 5.49 H* D Est Cr Clr Drug Dosing 10.1 eGFR 7.61 BUN/Creatinine Ratio 8.6 L Glucose 146 H POC Glucose 141 H Calcium 9.3 Phosphorus 4.6 Magnesium 1.9 Procalcitonin Diagnostic Findings Chest CT 01/21/25 15:00 Clinical history: Evaluate pneumonia Technique: Axial computed tomography images were obtained of the chest without intravenous contrast Comparison is made to the prior CT dated 11/01/2023 Findings: There is right lower lobe alveolar consolidation, consistent with pneumonia. There are mild multifocal centrilobular interstitial groundglass opacities bilaterally, consistent with pneumonia as well There is a small right pleural effusion. There is no left pleural effusion or pneumothorax. There is no sign of pulmonary fibrosis or other diffuse interstitial process. No endobronchial lesion is seen There is no mediastinal, hilar, or axillary adenopathy. The thoracic aorta is of normal caliber. There is no pericardial effusion. There is coronary atherosclerosis There is a small hiatal hernia. There are partially visualized left renal cysts as well as a hyperdense left renal lesion that is likely a proteinaceous or hemorrhagic cyst. There is thoracic scoliosis and degenerative disc disease. No fracture is seen. No focal osseous lesion is evident Impression: 1. Right worse than left pneumonia 2. Small right pleural effusion, decreased in size 3. Resolution of the previously seen left pleural effusion 4. Small hiatal hernia 5. Partially visualized left renal cysts and hyperdense left renal lesion that is indeterminate in nature but likely a proteinaceous or hemorrhagic cyst Electronically signed by Amor Chiang 01-21-2025 4:46 PM PG Care Time/CCT Total # of Minutes Spent Total Time Spent with Patient: Total time spent is greater than 50% in coordination of care (as documented) at patient's floor/unit and/or counseling patient: Coding Level of Care Code 16031 SUB INP/OBS CARE 2/35MIN Diagnoses Right lower lobe pneumonia J18.9 Pneumonia type: due to unspecified organism Acute respiratory failure J96.01 Respiratory failure complication: hypoxia
[2025-01-22] MEDS: HEPARIN SOD (PORCINE) 1000 UNIT/ML IV ONE (13:42)
--- NOTE | 2025-01-22 14:32 | Pharmacy Report ---
Pharmacy Glycemic Short Note 2 - Date of Service January 22, 2025 - Glycemic Short BSG Results (Last 24 hours): 01/21/25 01/21/25 01/22/25 15:58 20:06 06:09 Glucose 146 H POC Glucose 130 H 146 H 01/22/25 01/22/25 07:04 13:47 Glucose POC Glucose 141 H 107 H OUTPATIENT ANTIDIABETIC REGIMEN: * Toujeo 3 units SC qPM * Novolog 5 units SC AC (if BSG > 200 mg/dL) HbA1c: 6.1% (01/19/25) * However, this result is likely somewhat unreliable in ESRD patients d/t interactions between the A1c analyzing technique and high levels of urea in ESRD, reduced RBC life span, iron deficiency anemia, and EPO administration. HbA1c > 7.5% in ESRD patient may overestimate the extent of hyperglycemia in ESRD patients. ASSESSMENT: 01/22 * Tasha received a total of 16 units of insulin yesterday (3 units were basal and 13 units were bolus). BSGs were [phone]/dL. * Fasting BSG was 141mg/dL. Will continue HS Lantus as ordered. * Patient was dialyzed today, and afterwards lunch BSG was 107mg/dL, loosened CR of bolus insulin slightly. 01/19: * EF is a 74 year old female who presents with right lower lobe pneumonia (currently on Zosyn) * Pertinent PMH includes T2DM, ESRD (HD on Monday, , and Monday), hypertension, hyperlipidemia, and hx of NSTEMI * Hyperglycemic on presentation (ordered conservative initial SC basal/bolus regimen) * Diet advanced today * Per nephrology note, likely to be dialyzed tomorrow PLAN FOR INPATIENT GLYCEMIC CONTROL: * Basal insulin * Lantus 3 units SQ HS * Bolus insulin * NovoLog per scale ACHS or Q6hrs while NPO * Goal Range: Low 120 mg/dL - High 160 mg/dL * Correction Factor: 30 mg/dL/unit * Nutritional / Prandial insulin per carb ratio of 1 unit per 12 grams CHO consumed
--- NOTE | 2025-01-22 16:24 | Hospitalist Progress Note ---
Date of Service January 22, 2025 Assessment & Plan (1) Sleep apnea: (2) History of pneumonia: (3) Hyperlipidemia: (4) Depression: (5) History of non-ST elevation myocardial infarction (NSTEMI): (6) Type 2 diabetes mellitus: Plan 74-year-old female who presented to the ER 01/18/25 with hypoxia, shortness of breath that started overnight. She is being managed for the following: Acute hypoxic respiratory failure Right lower lobe pneumonia: Gram neg bacteremia: Symptoms started overnight [employer], found to have fever of 100 F Hypoxic in the 70s on room air, improved on BiPAP on arrival to the ED VBG with mild acidosis on arrival, chest x-ray with right lower lobe pneumonia, viral panel negative Blood cultures - H influenzae, MRSA screen neg, H influenzae positive. - Switched zosyn 01/18 to rocephin 01/20 -- to unasyn 01/21---now on zosyn per pulm due to worsening of her symptoms with increasing procalcitonin - Pulm evaled, follow further recs c/w Nebulizers, wean down O2 as anatoliy. 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 - ID evaled, appreciate recs. - Pt reports overall feeling better, cough slightly better, wbc gradually trending down Clinically not any worse with ongoing cough but no shortness of breath and remains very tired Procalcitonin will be checked tomorrow and if improved will get PT and OT evaluation for possible discharge in a day or 2 Hx ESRD on HD: Consult nephrology, normal dialysis days Monday//sat Has had dialysis today and will have next dialysis on Monday as per the patient Does not have any symptoms of fluid overload Hx LINDSEY -does not use CPAP at home, unable to tolerate Hx DM: Managed on Toujeo/lispro SSI/4 times daily BGM, recheck A1C - 5.1 Depression: Continue fluoxetine Hx GERD: Continue omeprazole Full code DVT prophylaxis: hep sub - q PT/OT, CM to assist w/ dc plan DC likely ling w/ pulm recs. c/w iv atb today. Admission and Anticipated Discharge Date Admission Date: January 18, 2025 Subjective 01/22/2025 The patient was seen and examined in telemetry unit She is a status post dialysis today Complains to weakness and cough No chest pain and no palpitation, no fever no chills Review of Systems Review of Systems: All systems reviewed and unremarkable except as noted below Physical Exam Physical Exam: Lying in bed without any acute distress Constitutional: well developed, well nourished, + ill appearing and + obese Eyes: PERRL, conjunctivae normal, anicteric sclerae ENMT: external ear and nose normal, oropharynx normal Neck: trachea midline, no thyromegaly Respiratory: no respiratory distress Auscultation: + crackles (Crackles bibasilarly more on the right than the left) and + wheezes (Occasional wheezing bilaterally) Cardiovascular: Rate/Rhythm: regular rate and regular rhythm; not tachycardic Heart Sounds: normal S1 and normal S2; no murmur Extremities: no edema Gastrointestinal (Abdomen): Inspection/Auscultation: normal bowel sounds; abdomen not distended Percussion/Palpation: abdomen soft; abdomen nontender Musculoskeletal: No acute arthritis involving any of the joint Neurologic: normal touch/pain/proprioception and moves all extremities; no focal motor deficits Lymphatic: no cervical or axillary lymphadenopathy Results & Data Results & Data Vital Signs (Past 12 Hours) Vital Signs Temp Pulse Pulse Pulse Resp BP BP 01/22/25 15:32 36.7 C 93 H 18 145/77 H 01/22/25 15:00 01/22/25 13:20 36.5 C 86 132/59 L 01/22/25 13:10 36.5 C 88 125/70 01/22/25 13:00 57 L 110/56 L 01/22/25 12:30 91 H 144/70 H 01/22/25 12:00 85 133/55 L 01/22/25 11:30 82 133/63 01/22/25 11:00 83 147/74 H 01/22/25 10:30 83 162/79 H 01/22/25 10:00 88 166/77 H 01/22/25 09:53 85 01/22/25 09:37 83 178/84 H 01/22/25 09:27 36.5 C 91 H 01/22/25 08:00 01/22/25 07:07 36.9 C 82 169/67 H Pulse Ox Pulse Ox O2 Del Method O2 Del Method O2 Flow Rate O2 Flow Rate 01/22/25 15:32 91 Nasal Cannula 2 01/22/25 15:00 90 Nasal Cannula 2 01/22/25 13:20 01/22/25 13:10 01/22/25 13:00 01/22/25 12:30 01/22/25 12:00 01/22/25 11:30 01/22/25 11:00 01/22/25 10:30 01/22/25 10:00 01/22/25 09:53 01/22/25 09:37 01/22/25 09:27 01/22/25 08:00 Nasal Cannula 1 01/22/25 07:07 95 Nasal Cannula 1 Laboratory Results Short CBC 01/22/25 Range/Units 06:09 WBC 15.17 H (4.8-10.8) K/ul Hgb 8.9 L (12.0-16.0) g/dl Hct 28.3 L (37.0-47.0) % Plt Count 265 (130-400) K/uL BMP 01/22/25 06:09 Sodium 134 L Potassium 3.4 L Chloride 96 L Carbon Dioxide 25 BUN 47 H Creatinine 5.49 H* D Glucose 146 H Calcium 9.3 Medications Administered Current Inpatient Medications Acetaminophen (Acetaminophen 325 Mg Tab) 650 mg PO Q4H PRN PRN Reason: Pain or Fever Stop: 02/17/25 15:15 Last Admin: 01/21/25 21:22 Dose: 650 mg Albuterol (Albut/Ipratrop 3mg/0.5mg Neb 3 Ml Vial) 3 ml NEB Q6R PRN; Protocol PRN Reason: sob wheeze Stop: 02/18/25 11:22 Aspirin (Aspirin 81 Mg Ectab) 81 mg PO DAILY [facility] Stop: 02/18/25 08:59 Last Admin: 01/22/25 08:06 Dose: 81 mg Benzonatate (Benzonatate 100 Mg Capsule) 100 mg PO TID PRN PRN Reason: cough Stop: 02/18/25 13:59 Last Admin: 01/21/25 21:22 Dose: 100 mg Cyanocobalamin (Cyanocobalamin (B-12) 500 Mcg Tablet) 500 mcg PO QAM JESS Stop: 02/18/25 08:59 Last Admin: 01/22/25 08:07 Dose: 500 mcg Dextrose (Dextrose 50% 50 Ml Syringe) 25 - 50 ml IV UD PRN; Protocol PRN Reason: Hypoglycemia Protocol Stop: 02/17/25 12:39 Fish Oil ([place]-3 (Purified Fish Oil) 1 Gm Cap) 1 cap PO QAM [facility] Stop: 02/18/25 08:59 Last Admin: 01/22/25 08:03 Dose: 1 cap Fluoxetine HCl (Fluoxetine Hcl 20 Mg Cap) 40 mg PO DAILY JESS Stop: 02/18/25 08:59 Last Admin: 01/22/25 08:03 Dose: 40 mg Fluoxetine HCl (Fluoxetine Hcl 10 Mg Cap) 10 mg PO DAILY JESS Stop: 02/18/25 08:59 Last Admin: 01/22/25 08:01 Dose: 10 mg Fluticasone Propionate (Fluticasone Propionate Na Spr 16 Gm Btl) 2 sprays NA QAM [facility] Stop: 02/18/25 09:59 Last Admin: 01/22/25 08:08 Dose: Not Given Glucagon (Glucagon For Inj 1 Mg Vial) 1 mg SQ UD PRN; Protocol PRN Reason: Hypoglycemia Protocol Stop: 02/17/25 12:39 Glucose (Glucose 40% Gel 15 Gm Tube) 15 - 30 gm PO UD PRN; Protocol PRN Reason: Hypoglycemia Protocol Stop: 02/17/25 12:39 Glucose (Glucose 10 Tab/Tube) 4 - 8 tab PO UD PRN; Protocol PRN Reason: Hypoglycemia Protocol Stop: 02/17/25 12:39 Guaifenesin (Guaifenesin 600 Mg Tabcr) 600 mg PO Q12 [facility] Stop: 02/18/25 09:59 Last Admin: 01/22/25 08:04 Dose: 600 mg Heparin Sodium (Porcine) (Heparin Sod 5,000 Unit/0.5 Ml Vial) 5,000 units SQ Q8 JESS Stop: 02/17/25 21:59 Last Admin: 01/22/25 13:45 Dose: 5,000 units Promethazine HCl (Phenergan) 6.25 mg in 50.25 mls @ 201 mls/hr IV Q6H PRN PRN Reason: Nausea And Vomiting Stop: 02/20/25 01:30 Piperacillin Sod/Tazobactam Sod (Zosyn) 4.5 gm in 100 mls @ 25 mls/hr IV Q12H JESS; Protocol Stop: 01/26/25 22:59 Last Admin: 01/22/25 13:40 Dose: 25 mls/hr Insulin Aspart (Insulin Aspart Per Unit Charge) 0 units SC ACHS JESS Stop: 02/18/25 11:29 Last Admin: 01/22/25 14:21 Dose: 2 units Insulin Glargine (Lantus Per Unit Charge) 3 units SC HS JESS Stop: 02/17/25 20:59 Last Admin: 01/21/25 21:22 Dose: 3 units Lactobacillus Acidophilus (Advanced Probiotic 625 Mg Capsule) 1,250 mg PO DAILY J[facility] Stop: 02/19/25 10:44 Last Admin: 01/22/25 08:03 Dose: 1,250 mg Miscellaneous (Carbohydrates For Hypoglycemia ) 15 - 30 gm PO UD PRN PRN Reason: Hypoglycemia Protocol Stop: 02/17/25 12:39 Miscellaneous Information (Pharmacy Glycemic Mgmt Consult) 1 each N/A UD PRN PRN Reason: Consult Stop: 02/17/25 12:39 Pantoprazole Sodium (Pantoprazole 40 Mg Tab) 40 mg PO QAM JESS Stop: 02/18/25 08:59 Last Admin: 01/22/25 08:04 Dose: 40 mg Rosuvastatin Calcium (Rosuvastatin Calcium 10 Mg Tab) 10 mg PO HS JESS Stop: 02/17/25 20:59 Last Admin: 01/21/25 21:24 Dose: 10 mg Sevelamer Carbonate (Sevelamer Carbonate 800 Mg Tab) 800 mg PO TIDM JESS Stop: 02/17/25 16:59 Last Admin: 01/22/25 13:41 Dose: 800 mg Vitamin D (Cholecalciferol 125 Mcg (5,000 Units) Tab) 125 mcg PO QAM JESS Stop: 02/18/25 08:59 Last Admin: 01/22/25 08:07 Dose: 125 mcg
--- NOTE | 2025-01-22 16:28 | Nephrology Progress Note ---
Date of Service January 22, 2025 Assessment & Plan (1) ESRD (end stage renal disease) on dialysis: Plan: patient with ESRD on dialysis Monday. Patient missed outpatient dialysis on Monday. She is now admitted with right lower lobe pneumonia. Electrolytes are stable and with mild volume overload ongoing on CXR 01/21. >tolerated 3.5 L UF today on 3.5 hr tx; planned HD txs this week are 01/20, 01/22, 01/23, 01/25 (4 total to compensate for missed tx on 01/18; AND consider longer txs to help manage volume>>in for 4 hrs tomorrow as tolerated)>> BUT if going to inpatient rehab will need to adjust to a Monday schedule orders in for tx tomorrow; she remains volume overloaded care coordinated w/ dr rocky jean-baptiste bacteremia, dialysis dispo; we are in agreement (2) Right lower lobe pneumonia: Plan: Patient with right lower lobe pneumonia, presume H flu. had been getting vancomycin and Zosyn renally dosed; switched January 21 2 Unasyn. Pulm following. (3) Bacteremia: Plan: HFlu on 01/18; also w/ H flu serology positive. -continue abtx -consider repeat blood cxs if improvement stalls -WBC count coming down further now to 15.7 today Admission and Anticipated Discharge Date Admission Date: January 18, 2025 Subjective Tolerated 3.5 L UF today. Pulmonary following and recommending outpatient sleep study. pt still exhausted, cough a bit better but ongoing; appetite a bit better but minimal; no edema Review of Systems 2 Review of Systems: All systems reviewed & are unremarkable except as noted in HPI & below Physical Exam 2 Constitutional: well developed (sitting on side of bed on ), well nourished, + obese and cooperative; no acute distress Eyes: EOM intact bilaterally ENMT: Mouth: + dry oral mucous membranes Respiratory: normal respiratory effort and + cough (thick frequent) A uscultation: + diminished lung sounds, + crackles (throughout R post field and on L base) and + wheezes (diffuse exp) Gastrointestinal (Abdomen): Inspection/Auscultation: normal bowel sounds P ercussion/Palpation: abdomen soft; abdomen nontender Musculoskeletal: Extremities: strength 5/5 throughout Skin: no rashes, warm and dry Results & Data Vital Signs (Past 12 Hours) Vital Signs Temp Pulse Pulse Pulse Resp BP BP 01/22/25 15:32 36.7 C 93 H 18 145/77 H 01/22/25 15:00 01/22/25 13:20 36.5 C 86 132/59 L 01/22/25 13:10 36.5 C 88 125/70 01/22/25 13:00 57 L 110/56 L 01/22/25 12:30 91 H 144/70 H 01/22/25 12:00 85 133/55 L 01/22/25 11:30 82 133/63 01/22/25 11:00 83 147/74 H 01/22/25 10:30 83 162/79 H 01/22/25 10:00 88 166/77 H 01/22/25 09:53 85 01/22/25 09:37 83 178/84 H 01/22/25 09:27 36.5 C 91 H 01/22/25 08:00 01/22/25 07:07 36.9 C 82 169/67 H Pulse Ox Pulse Ox O2 Del Method O2 Del Method O2 Flow Rate O2 Flow Rate 01/22/25 15:32 91 Nasal Cannula 2 01/22/25 15:00 90 Nasal Cannula 2 01/22/25 13:20 01/22/25 13:10 01/22/25 13:00 01/22/25 12:30 01/22/25 12:00 01/22/25 11:30 01/22/25 11:00 01/22/25 10:30 01/22/25 10:00 01/22/25 09:53 01/22/25 09:37 01/22/25 09:27 01/22/25 08:00 Nasal Cannula 1 01/22/25 07:07 95 Nasal Cannula 1 Laboratory Results 01/22/25 06:09 01/22/25 06:09 (2) Right lower lobe pneumonia Pneumonia type: due to unspecified organism Qualified Code(s): J18.9 - Pneumonia, unspecified organism
[2025-01-23 06:28] LABS: Hematocrit (blood only) 27.2 % (37.0-47.0); Hemoglobin 8.8 g/dl (12.0-16.0); Immature Granulocytes # (auto) 0.44 K/uL (0.01-0.20); Immature Granulocytes % (auto) 2.9 %; Mean Corpuscular Hemoglobin 31.5 pg (25.0-34.0); Mean Corpuscular Volume 97.5 fL (80.0-100.0); Platelet Count 292 K/uL (130-400); RDW Standard Deviation 45.7 fL (36.4-46.3); Red Blood Count 2.79 M/uL (4.20-5.40); White Blood Count 15.03 K/ul (4.8-10.8)
[2025-01-23 06:49] LABS: Anion Gap 11.0 (3-11); Blood Urea Nitrogen 25.0 mg/dl (6-23); Calcium 9.5 mg/dl (8.6-10.3); Carbon Dioxide 28.0 mmol/L (21-32); Chloride 97.0 mmol/L (98-107); Creatinine Clr Calc Pharmacy 14.8 ml/min; Glucose 141.0 mg/dl (70-99(Fasting)); Magnesium 2.0 mg/dl (1.7-2.4); Potassium 3.4 mmol/L (3.5-5.1); Sodium 136.0 mmol/L (136-145)
[2025-01-23] MEDS ORDERED: SODIUM CHLORIDE 0.9% 1,000 ML IV PRN (07:00)
--- NOTE | 2025-01-23 13:01 | Pulmonology Progress Note ---
Date of Service January 23, 2025 Assessment & Plan (1) Right lower lobe pneumonia: Pneumonia type: due to unspecified organism Qualified Code(s): J 18.9 - Pneumonia, unspecified organism (2) Acute respiratory failure: Respiratory failure complication: hypoxia Qualified Code(s): J 96.01 - Acute respiratory failure with hypoxia Plan Impression: 74-year-old female with end-stage renal disease on dialysis admitted with a right lower lobe pneumonia. Recommendations: 1. Pneumonia: Healthcare associated given the patient is a dialysis patient. MRSA negative. Cont Zosyn. Continue to follow clinical course including oxygen requirement, fever curve, and leukocytosis. Repeat Procal 14.60 from 29. 2. Hypoxemia: Secondary to #1. Continue to wean oxygen as tolerated. Currently on 3L NC. Incentive spirometry. Out of bed to chair as tolerated. 3. Hypercarbic respiratory failure: Present on presentation but appears to have resolved with application of noninvasive positive pressure ventilation. The patient is at risk for hypercarbia and may have potential underlying sleep disordered breathing. Outpatient sleep study should be considered. Patient has not tolerated CPAP in the past. Would apply a noninvasive positive pressure ventilation should the patient have altered mental status or evidence of CO2 retention. Avoid narcotics, benzodiazepines, or other potential respiratory suppressant medications. 4. Management of the patient's other medical issues is deferred to the primary admitting service. Thanks the opportunity participate in the care of this patient. Will continue to follow with you. Feel free to contact us with questions or concerns 36 minutes is he time spent reviewing the chart, obtaining history, performing the physical exam, and updating the patient and bedside nurse. Admission and Anticipated Discharge Date Admission Date: January 18, 2025 Subjective Patient 94-95% on 3L NC. Subjectively still complains of weakness. Getting HD again today did have HD yesterday with reported 3 liters off. Procal downtrending to 14.60 from 29. Patient continues on zosyn. Review of Systems 2 Review of Systems: All systems reviewed & are unremarkable except as noted in HPI & below Physical Exam 2 Physical Exam: VITALS: Reviewed. WEIGHT/BMI reviewed. GEN: ill appearing, well-developed, NAD. PSYCH: Good Judgment. AOx3. Normal memory, mood, and affect. HEENT -Head: NC/AT; -Eyes: PERRL, EOMI. No discharge or redn ess; -Ears: External ears are normal. -Nose: Normal nares. NECK: Supple, with no masses. CV: RRR, no m/r/g. LUNGS: CTAB, no w/r/c. ABD: N/A : N/A SKIN: Warm, well perfused. No skin rashes or abnormal lesions. MSK: No deformities, Normal gait. EXT: No clubbing, cyanosis, or edema. NEURO: Normal muscle strength and tone. No focal deficits. Results & Data Results & Data Vital Signs (Past 12 Hours) Vital Signs Temp Pulse Pulse Resp BP BP Pulse Ox 01/23/25 12:00 80 111/68 01/23/25 11:30 69 129/104 H 01/23/25 11:00 68 131/63 01/23/25 10:57 71 147/68 H 01/23/25 10:48 36.7 C 76 01/23/25 08:00 70 01/23/25 08:00 01/23/25 07:39 36.8 C 87 18 184/65 H 94 01/23/25 03:00 36.8 C 76 20 163/73 H 98 O2 Del Method O2 Flow Rate 01/23/25 12:00 01/23/25 11:30 01/23/25 11:00 01/23/25 10:57 01/23/25 10:48 01/23/25 08:00 01/23/25 08:00 Nasal Cannula 3 01/23/25 07:39 Nasal Cannula 3 01/23/25 03:00 Nasal Cannula 3 Laboratory Results 01/23/25 05:58 01/23/25 05:58 Abnormal Lab Results 01/18/25 01/18/25 01/22/25 10:56 10:56 13:47 WBC RBC Hgb Hct MCV MCH MCHC RDW Std Deviation RDW Coeff of Aure Plt Count MPV Immature Gran % (Auto) Neut % (Auto) Lymph % (Auto) Wilson % (Auto) Eos % (Auto) Baso % (Auto) Neut # (Auto) Lymph # (Auto) Wilson # (Auto) Eos # (Auto) Baso # (Auto) Immature Gran # (Auto) Sodium Potassium Chloride Carbon Dioxide Anion Gap BUN Creatinine Est Cr Clr Drug Dosing eGFR BUN/Creatinine Ratio Glucose POC Glucose 107 H Calcium Phosphorus Magnesium Procalcitonin Miscellaneous Test See Scanned report REPORT 01/22/25 01/22/25 01/23/25 16:23 20:27 05:58 WBC 15.03 H RBC 2.79 L Hgb 8.8 L Hct 27.2 L MCV 97.5 MCH 31.5 MCHC 32.4 RDW Std Deviation 45.7 RDW Coeff of Aure 13.0 Plt Count 292 MPV 9.3 L Immature Gran % (Auto) 2.9 Neut % (Auto) 71.7 Lymph % (Auto) 12.9 Wilson % (Auto) 9.4 Eos % (Auto) 2.5 Baso % (Auto) 0.6 Neut # (Auto) 10.77 H Lymph # (Auto) 1.94 Wilson # (Auto) 1.42 H Eos # (Auto) 0.37 Baso # (Auto) 0.09 Immature Gran # (Auto) 0.44 H Sodium 136 Potassium 3.4 L Chloride 97 L Carbon Dioxide 28 Anion Gap 11 BUN 25 H D Creatinine 3.71 H D Est Cr Clr Drug Dosing 14.8 eGFR 12.18 BUN/Creatinine Ratio 6.7 L Glucose 141 H POC Glucose 172 H 175 H Calcium 9.5 Phosphorus 4.1 Magnesium 2.0 Procalcitonin 14.60 H Miscellaneous Test 01/23/25 07:20 WBC RBC Hgb Hct MCV MCH MCHC RDW Std Deviation RDW Coeff of Aure Plt Count MPV Immature Gran % (Auto) Neut % (Auto) Lymph % (Auto) Wilson % (Auto) Eos % (Auto) Baso % (Auto) Neut # (Auto) Lymph # (Auto) Wilson # (Auto) Eos # (Auto) Baso # (Auto) Immature Gran # (Auto) Sodium Potassium Chloride Carbon Dioxide Anion Gap BUN Creatinine Est Cr Clr Drug Dosing eGFR BUN/Creatinine Ratio Glucose POC Glucose 138 H Calcium Phosphorus Magnesium Procalcitonin Miscellaneous Test Diagnostic Findings No recent imaging. Coding Level of Care Code 84100 SUB INP/OBS CARE 2/35MIN Diagnoses Right lower lobe pneumonia J18.9 Pneumonia type: due to unspecified organism Acute respiratory failure J96.01 Respiratory failure complication: hypoxia
[2025-01-23] MEDS: HEPARIN SOD (PORCINE) 1000 UNIT/ML IV ONE (13:24)
[2025-01-23] MEDS: EPOETIN ALFA 10,000 UNITS/ML VIAL IV ONE (13:24)
--- NOTE | 2025-01-23 14:44 | Nephrology Progress Note ---
Date of Service January 23, 2025 Assessment & Plan (1) ESRD (end stage renal disease) on dialysis: Plan: patient with ESRD on dialysis Monday. Patient missed outpatient dialysis on Monday. She is now admitted with right lower lobe pneumonia. Electrolytes are stable and with mild volume overload ongoing on CXR 01/21. Planned HD txs this week are 01/20, 01/22, 01/23, 01/25 (4 total to compensate for missed tx on 01/18; AND consider longer txs to help manage volume>>in for 4 hrs today as tolerated)>> BUT if going to inpatient rehab will need to adjust to a Monday schedule (2) Right lower lobe pneumonia: Plan: Patient with right lower lobe pneumonia, presume H flu. had been getting vancomycin and Zosyn renally dosed; switched January 21 Unasyn. Pulm following. (3) Bacteremia: Plan: HFlu on 01/18; also w/ H flu serology positive. -continue abtx -consider repeat blood cxs if improvement stalls Admission and Anticipated Discharge Date Admission Date: January 18, 2025 Subjective Patient 94-95% on 3L NC.To get HD again today . Review of Systems Review of Systems: All systems reviewed & are unremarkable except as noted in HPI & below Physical Exam Physical Exam: Constitutional: well developed (si tting on side of b ed on ), well nourished, + obes e and cooperative; no acute distress Eyes: EOM intact bilater ally ENMT: Mouth: + dry oral mucous membranes Respiratory: normal respiratory effort and + coug h (thick frequent) Auscultation: + diminished lung so unds, + crackles ( throughout R post field and on L bas e) and + wheezes ( diffuse exp) Gastrointestinal ( Abdomen): Inspection/Auscult ation: normal wesley l sounds Percussi on/Palpation: abdo men soft; abdomen nontender Musculoskeletal: Extremities: stren gth 5/5 throughout Skin: no rashes, warm an d dry Results & Data Vital Signs (Past 12 Hours) Vital Signs Temp Pulse Pulse Resp BP BP Pulse Ox 01/23/25 13:30 88 93/48 L 01/23/25 13:00 83 103/57 L 01/23/25 12:30 77 112/59 L 01/23/25 12:00 80 111/68 01/23/25 11:30 69 129/104 H 01/23/25 11:00 68 131/63 01/23/25 10:57 71 147/68 H 01/23/25 10:48 36.7 C 76 01/23/25 08:00 70 01/23/25 08:00 01/23/25 07:39 36.8 C 87 18 184/65 H 94 01/23/25 03:00 36.8 C 76 20 163/73 H 98 O2 Del Method O2 Flow Rate 01/23/25 13:30 01/23/25 13:00 01/23/25 12:30 01/23/25 12:00 01/23/25 11:30 01/23/25 11:00 01/23/25 10:57 01/23/25 10:48 01/23/25 08:00 01/23/25 08:00 Nasal Cannula 3 01/23/25 07:39 Nasal Cannula 3 01/23/25 03:00 Nasal Cannula 3 (2) Right lower lobe pneumonia Pneumonia type: due to unspecified organism Qualified Code(s): J18.9 - Pneumonia, unspecified organism
--- NOTE | 2025-01-23 16:34 | Hospitalist Progress Note ---
Date of Service January 23, 2025 Assessment & Plan (1) Sleep apnea: (2) History of pneumonia: (3) Hyperlipidemia: (4) Depression: (5) History of non-ST elevation myocardial infarction (NSTEMI): (6) Type 2 diabetes mellitus: Plan 74-year-old female who presented to the ER 01/18/25 with hypoxia, shortness of breath that started overnight. She is being managed for the following: Acute hypoxic respiratory failure Right lower lobe pneumonia: Gram neg bacteremia: Symptoms started overnight [employer], found to have fever of 100 F Hypoxic in the 70s on room air, improved on BiPAP on arrival to the ED VBG with mild acidosis on arrival, chest x-ray with right lower lobe pneumonia, viral panel negative Blood cultures - H influenzae, MRSA screen neg, H influenzae positive. - Switched zosyn 01/18 to rocephin 01/20 -- to unasyn 01/21---now on zosyn per pulm due to worsening of her symptoms with increasing procalcitonin - Pulm evaled, follow further recs c/w Nebulizers, wean down O2 as anatoliy. No home O2 need [employer]. - ID evaled, appreciate recs. - Pt reports overall feeling better, cough slightly better, wbc gradually trending down Clinically not any worse with ongoing cough but no shortness of breath and remains very tired Procalcitonin will be checked tomorrow and if improved will get PT and OT evaluation for possible discharge in a day or 2 Procalcitonin has reduced to 14 and white count is improving too She remains extremely weak and lethargic and does not feel like that she could go home tomorrow Will get PT and OT evaluation prior to discharge Hx ESRD on HD: Consult nephrology, normal dialysis days Monday//sat Has had dialysis today and will have next dialysis on Monday as per the patient Does not have any symptoms of fluid overload Will continue with hemodialysis as per press set up Hx LINDSEY -does not use CPAP at home, unable to tolerate Hx DM: Managed on Toujeo/lispro SSI/4 times daily BGM, recheck A1C - 5.1 Depression: Continue fluoxetine Hx GERD: Continue omeprazole Full code DVT prophylaxis: hep sub - q PT/OT, CM to assist w/ dc plan Admission and Anticipated Discharge Date Admission Date: January 18, 2025 Subjective 01/22/2025 The patient was seen and examined in telemetry unit She is a status post dialysis today Complains to weakness and cough No chest pain and no palpitation, no fever no chills 01/23/2025 The patient was seen and examined in telemetry unit She is a status post dialysis for 4 hours and feels extremely tired and exhausted Still has a cough but denies any shortness of breath or chest pain Review of Systems Review of Systems: All systems reviewed and unremarkable except as noted below Physical Exam Physical Exam: Lying in bed without any acute distress Constitutional: well developed, well nourished, + ill appearing and + obese Eyes: PERRL, conjunctivae normal, anicteric sclerae ENMT: external ear and nose normal, oropharynx normal Neck: trachea midline, no thyromegaly Respiratory: no respiratory distress Auscultation: + crackles (Crackles bibasilarly more on the right than the left) and + wheezes (Occasional wheezing bilaterally) Cardiovascular: Rate/Rhythm: regular rate and regular rhythm; not tachycardic Heart Sounds: normal S1 and normal S2; no murmur Extremities: no edema Gastrointestinal (Abdomen): Inspection/Auscultation: normal bowel sounds; abdomen not distended Percussion/Palpation: abdomen soft; abdomen nontender Neurologic: normal touch/pain/proprioception and moves all extremities; no focal motor deficits Lymphatic: no cervical or axillary lymphadenopathy Results & Data Results & Data Vital Signs (Past 12 Hours) Vital Signs Temp Pulse Pulse Resp BP BP Pulse Ox 01/23/25 15:56 36.6 C 85 20 105/66 94 01/23/25 15:10 36.7 C 82 118/55 L 01/23/25 14:30 84 124/63 01/23/25 14:00 83 138/65 01/23/25 13:30 88 93/48 L 01/23/25 13:00 83 103/57 L 01/23/25 12:30 77 112/59 L 01/23/25 12:00 80 111/68 01/23/25 11:30 69 129/104 H 01/23/25 11:00 68 131/63 01/23/25 10:57 71 147/68 H 01/23/25 10:48 36.7 C 76 01/23/25 08:00 70 01/23/25 08:00 01/23/25 07:39 36.8 C 87 18 184/65 H 94 O2 Del Method O2 Flow Rate 01/23/25 15:56 Nasal Cannula 2 01/23/25 15:10 01/23/25 14:30 01/23/25 14:00 01/23/25 13:30 01/23/25 13:00 01/23/25 12:30 01/23/25 12:00 01/23/25 11:30 01/23/25 11:00 01/23/25 10:57 01/23/25 10:48 01/23/25 08:00 01/23/25 08:00 Nasal Cannula 3 01/23/25 07:39 Nasal Cannula 3 Laboratory Results Short CBC 01/23/25 Range/Units 05:58 WBC 15.03 H (4.8-10.8) K/ul Hgb 8.8 L (12.0-16.0) g/dl Hct 27.2 L (37.0-47.0) % Plt Count 292 (130-400) K/uL BMP 01/23/25 05:58 Sodium 136 Potassium 3.4 L Chloride 97 L Carbon Dioxide 28 BUN 25 H D Creatinine 3.71 H D Glucose 141 H Calcium 9.5 Medications Administered Current Inpatient Medications Acetaminophen (Acetaminophen 325 Mg Tab) 650 mg PO Q4H PRN PRN Reason: Pain or Fever Stop: 02/17/25 15:15 Last Admin: 01/22/25 21:12 Dose: 650 mg Albuterol (Albut/Ipratrop 3mg/0.5mg Neb 3 Ml Vial) 3 ml NEB Q6R PRN; Protocol PRN Reason: sob wheeze Stop: 02/18/25 11:22 Aspirin (Aspirin 81 Mg Ectab) 81 mg PO DAILY [facility] Stop: 02/18/25 08:59 Last Admin: 01/23/25 07:53 Dose: 81 mg Benzonatate (Benzonatate 100 Mg Capsule) 100 mg PO TID PRN PRN Reason: cough Stop: 02/18/25 13:59 Last Admin: 01/23/25 07:50 Dose: 100 mg Cyanocobalamin (Cyanocobalamin (B-12) 500 Mcg Tablet) 500 mcg PO QAM JESS Stop: 02/18/25 08:59 Last Admin: 01/23/25 07:53 Dose: 500 mcg Dextrose (Dextrose 50% 50 Ml Syringe) 25 - 50 ml IV UD PRN; Protocol PRN Reason: Hypoglycemia Protocol Stop: 02/17/25 12:39 Fish Oil ([place]-3 (Purified Fish Oil) 1 Gm Cap) 1 cap PO QAM JESS Stop: 02/18/25 08:59 Last Admin: 01/23/25 07:53 Dose: 1 cap Fluoxetine HCl (Fluoxetine Hcl 20 Mg Cap) 40 mg PO DAILY JESS Stop: 02/18/25 08:59 Last Admin: 01/23/25 07:52 Dose: 40 mg Fluoxetine HCl (Fluoxetine Hcl 10 Mg Cap) 10 mg PO DAILY JESS Stop: 02/18/25 08:59 Last Admin: 01/23/25 07:52 Dose: 10 mg Fluticasone Propionate (Fluticasone Propionate Na Spr 16 Gm Btl) 2 sprays NA QAM JESS Stop: 02/18/25 09:59 Last Admin: 01/23/25 07:51 Dose: Not Given Glucagon (Glucagon For Inj 1 Mg Vial) 1 mg SQ UD PRN; Protocol PRN Reason: Hypoglycemia Protocol Stop: 02/17/25 12:39 Glucose (Glucose 40% Gel 15 Gm Tube) 15 - 30 gm PO UD PRN; Protocol PRN Reason: Hypoglycemia Protocol Stop: 02/17/25 12:39 Glucose (Glucose 10 Tab/Tube) 4 - 8 tab PO UD PRN; Protocol PRN Reason: Hypoglycemia Protocol Stop: 02/17/25 12:39 Guaifenesin (Guaifenesin 600 Mg Tabcr) 600 mg PO Q12 JESS Stop: 02/18/25 09:59 Last Admin: 01/23/25 07:54 Dose: 600 mg Heparin Sodium (Porcine) (Heparin Sod 5,000 Unit/0.5 Ml Vial) 5,000 units SQ Q8 JESS Stop: 02/17/25 21:59 Last Admin: 01/23/25 06:04 Dose: 5,000 units Promethazine HCl (Phenergan) 6.25 mg in 50.25 mls @ 201 mls/hr IV Q6H PRN PRN Reason: Nausea And Vomiting Stop: 02/20/25 01:30 Piperacillin Sod/Tazobactam Sod (Zosyn) 4.5 gm in 100 mls @ 25 mls/hr IV Q12H JESS; Protocol Stop: 01/26/25 22:59 Last Infusion: 01/23/25 03:21 Dose: Infused Insulin Aspart (Insulin Aspart Per Unit Charge) 0 units SC ACHS JESS Stop: 02/18/25 11:29 Last Admin: 01/23/25 14:42 Dose: Not Given Insulin Glargine (Lantus Per Unit Charge) 3 units SC HS JESS Stop: 02/17/25 20:59 Last Admin: 01/22/25 21:12 Dose: 3 units Lactobacillus Acidophilus (Advanced Probiotic 625 Mg Capsule) 1,250 mg PO DAILY JESS Stop: 02/19/25 10:44 Last Admin: 01/23/25 07:52 Dose: 1,250 mg Miscellaneous (Carbohydrates For Hypoglycemia ) 15 - 30 gm PO UD PRN PRN Reason: Hypoglycemia Protocol Stop: 02/17/25 12:39 Miscellaneous Information (Pharmacy Glycemic Mgmt Consult) 1 each N/A UD PRN PRN Reason: Consult Stop: 02/17/25 12:39 Pantoprazole Sodium (Pantoprazole 40 Mg Tab) 40 mg PO QAM JESS Stop: 02/18/25 08:59 Last Admin: 01/23/25 07:53 Dose: 40 mg Rosuvastatin Calcium (Rosuvastatin Calcium 10 Mg Tab) 10 mg PO HS [facility] Stop: 02/17/25 20:59 Last Admin: 01/22/25 21:13 Dose: 10 mg Sevelamer Carbonate (Sevelamer Carbonate 800 Mg Tab) 800 mg PO TIDM JESS Stop: 02/17/25 16:59 Last Admin: 01/23/25 14:47 Dose: Not Given Vitamin D (Cholecalciferol 125 Mcg (5,000 Units) Tab) 125 mcg PO QAM JESS Stop: 02/18/25 08:59 Last Admin: 01/23/25 07:53 Dose: 125 mcg
[2025-01-24 06:40] LABS: Hematocrit (blood only) 29.9 % (37.0-47.0); Hemoglobin 9.3 g/dl (12.0-16.0); Mean Corpuscular Hemoglobin 30.6 pg (25.0-34.0); Mean Corpuscular Volume 98.4 fL (80.0-100.0); Platelet Count 330 K/uL (130-400); RDW Standard Deviation 46.3 fL (36.4-46.3); Red Blood Count 3.04 M/uL (4.20-5.40); White Blood Count 15.33 K/ul (4.8-10.8)
[2025-01-24 07:03] LABS: Anion Gap 11.0 (3-11); Blood Urea Nitrogen 16.0 mg/dl (6-23); Calcium 9.6 mg/dl (8.6-10.3); Carbon Dioxide 28.0 mmol/L (21-32); Chloride 96.0 mmol/L (98-107); Creatinine Clr Calc Pharmacy 16.8 ml/min; Glucose 129.0 mg/dl (70-99(Fasting)); Magnesium 1.9 mg/dl (1.7-2.4); Potassium 3.3 mmol/L (3.5-5.1); Sodium 135.0 mmol/L (136-145)
[2025-01-24 07:29] LABS: Immature Granulocytes # (auto) 1.20 K/uL (0.01-0.20); Immature Granulocytes % (auto) 7.8 %; Polychromasia 1+
--- NOTE | 2025-01-24 07:59 | Pharmacy Report ---
Pharmacy Glycemic Sign Off Nt - Date of Service January 24, 2025 - Assessment & Plan ASSESSMENT: * Pharmacy was consulted by Bettye DIETRICH on 01/18 for glycemic control and to write orders per [facility] inpatient glycemic control protocol. * Major changes made by pharmacy to antidiabetic regimen include: * added novolog scale, resumed home basal * Patient has been receiving/requiring <15 units of insulin per day for adequate glycemic control PLAN FOR INPATIENT GLYCEMIC CONTROL: No changes needed to current regimen. * Continue basal insulin with Lantus 3 units HS * Continue NovoLog per scale ACHS/Q6hrs while NPO * Goal range = 120-160 mg/dl * CF = 30 mg/dl/unit * CR = 1 unit for ever 12 g CHO consumed * Pharmacy is signing off of glycemic consult and will no longer be making adjustments to inpatient regimen. Please feel free to re-consult if needed. Thank you.
--- NOTE | 2025-01-24 08:15 | Nephrology Progress Note ---
Date of Service January 24, 2025 Assessment & Plan Admission and Anticipated Discharge Date Admission Date: January 18, 2025 Subjective Assessment & Plan (1) ESRD (end stage renal disease) on dialysis: Plan: patient with ESRD on dialysis Monday. Patient missed outpatient dialysis on Monday. She is now admitted with right lower lobe pne umonia and Influenzae triggering volume overload. Electrolytes are stable and with mild volume overload ongoing on CXR 01/21. Planned HD txs this week are 01/20, 01/22, 01/23, 01/25 (4 total to compensate for missed tx on 01/18; AND consider longer txs to help manage volume. for 4 hrs tomorrow which is her regular schedule of TTS. (2) Right lower lobe pneumonia: Plan: Patient with right lower lobe pneumonia, presume H flu. had been getting vancomycin and Zosyn renally dosed; switched January 21 Unasyn. Pulm following. (3) Bacteremia: Plan: HFlu on 01/18; also w/ H flu serology positive. ontinue abtx Subjective Patient 94-98% on 3L NC. had dialysis yesterday. Feeling slightly better. Review of Systems Review of Systems: All systems reviewed & are unremarkable except as noted in HPI & below Physical Exam Physical Exam: Lying in bed without any acute distress Constitutional: well developed, well nourished, + ill appearing and + obese Eyes: PERRL, conjunctivae normal, anicteric sclerae ENMT: external ear and nose normal, oropharynx normal Neck: trachea midline, no thyromegaly Respiratory: no respiratory distress Auscultation: + crackles (Crackles bibasilarly more on the right than the left) and + wheezes (Occasional wheezing bilaterally) Cardiovascular: Rate/Rhythm: regular rate and regular rhythm; not tachycardic Heart Sounds: normal S1 and normal S2; no murmur Extremities: no edema Gastrointestinal (Abdomen): Inspection/Auscultation: normal bowel sounds; abdomen not distended Percussion/Palpation: abdomen soft; abdomen nontender Musculoskeletal: No acute arthritis involving any of the joint Neurologic: normal touch/pain/proprioception and moves all extremities; no focal motor deficits Lymphatic: no cervical or axillary lymphadenopathy Results & Data Vital Signs (Past 12 Hours) Vital Signs Temp Pulse Pulse Pulse Resp BP Pulse Ox 01/24/25 07:10 37.2 C 76 18 158/72 H 98 01/24/25 06:09 163/81 H 01/24/25 03:22 36.8 C 77 20 171/80 H 95 01/23/25 23:00 36.6 C 75 20 146/69 H 98 01/23/25 21:46 81 O2 Del Method O2 Flow Rate 01/24/25 07:10 Nasal Cannula 3 01/24/25 06:09 01/24/25 03:22 Nasal Cannula 3 01/23/25 23:00 Nasal Cannula 3 01/23/25 21:46
[2025-01-24] MEDS: POTASSIUM CHLORIDE CRTAB 20 MEQ TABCR PO STA (09:06)
--- NOTE | 2025-01-24 13:28 | Pulmonology Progress Note ---
Date of Service January 24, 2025 Assessment & Plan (1) Right lower lobe pneumonia: Pneumonia type: due to unspecified organism Qualified Code(s): J 18.9 - Pneumonia, unspecified organism (2) Acute respiratory failure: Respiratory failure complication: hypoxia Qualified Code(s): J 96.01 - Acute respiratory failure with hypoxia Plan Impression: 74-year-old female with end-stage renal disease on dialysis admitted with a right lower lobe pneumonia. Recommendations: 1. Pneumonia: Healthcare associated given the patient is a dialysis patient. MRSA negative. Cont Zosyn. Continue to follow clinical course including oxygen requirement, fever curve, and leukocytosis. Repeat Procal 14.60 on 01/23 from 29. 2. Hypoxemia: Secondary to #1. Continue to wean oxygen as tolerated. Currently on 2L NC. On room air when evaluated at bedside today with SpO2 93%. Cont Incentive spirometry. Out of bed to chair as tolerated. 3. Hypercarbic respiratory failure: Present on presentation but appears to have resolved with application of noninvasive positive pressure ventilation. The patient is at risk for hypercarbia and may have potential underlying sleep disordered breathing. Outpatient sleep study should be considered. Patient has not tolerated CPAP in the past. Would apply a noninvasive positive pressure ventilation should the patient have altered mental status or evidence of CO2 retention. Avoid narcotics, benzodiazepines, or other potential respiratory suppressant medications. Patient interested in trying CPAP while admitted to [place]. Order to use home CPAP per patient preference entered. Daughter will bring in patient's home device. 4. Management of the patient's other medical issues is deferred to the primary admitting service. Thanks the opportunity participate in the care of this patient. Will continue to follow with you. Feel free to contact us with questions or concerns 35 minutes is he time spent reviewing the chart, obtaining history, performing the physical exam, and updating the patient and bedside nurse. Admission and Anticipated Discharge Date Admission Date: January 18, 2025 Supervising Physician Co-Signing Physician Notes Consider repeating Pro-Gray tomorrow. Clinically she seems to be improving. If Pro-Gray drops again tomorrow, consider transitioning to oral levofloxacin if QTc allows upon discharge. I would recommend a total of 10 days of antibiotics. Recommend a follow-up CT chest in 2 months to follow-up on the abnormality seen 01/21/2025 to ensure resolution of infiltrates and effusions. Pulmonary signed off. Thank you for the consult. Please call with questions. Subjective Patient breathing feels improved but notes dyspnea with exertion. On evaluation patent on room air with SpO2 93%. Patient coughing up yellow phlegm. Additional dialysis treatment performed on 01/23/25. Review of Systems 2 Review of Systems: All systems reviewed & are unremarkable except as noted in HPI & below Physical Exam 2 Physical Exam: VITALS: Reviewed. WEIGHT/BMI reviewed. GEN: ill appearing, well-developed, NAD. PSYCH: Good Judgment. AOx3. Normal memory, mood, and affect. HEENT -Head: NC/AT; -Eyes: PERRL, EOMI. No discharge or redn ess; -Ears: External ears are normal. -Nose: Normal nares. NECK: Supple, with no masses. CV: RRR, no m/r/g. LUNGS: CTAB, no w/r/c. ABD: N/A : N/A SKIN: Warm, well perfused. No skin rashes or abnormal lesions. MSK: No deformities, Normal gait. EXT: No clubbing, cyanosis, or edema. NEURO: Normal muscle strength and tone. No focal deficits. Results & Data Results & Data Vital Signs (Past 12 Hours) Vital Signs Temp Pulse Pulse Pulse Resp BP Pulse Ox 01/24/25 11:01 36.7 C 75 19 168/81 H 99 01/24/25 08:00 01/24/25 08:00 70 01/24/25 07:10 37.2 C 76 18 158/72 H 98 01/24/25 06:09 163/81 H 01/24/25 03:22 36.8 C 77 20 171/80 H 95 O2 Del Method O2 Flow Rate 01/24/25 11:01 Nasal Cannula 2 01/24/25 08:00 Nasal Cannula 2 01/24/25 08:00 01/24/25 07:10 Nasal Cannula 3 01/24/25 06:09 01/24/25 03:22 Nasal Cannula 3 Laboratory Results 01/24/25 06:10 01/24/25 06:10 Abnormal Lab Results 01/23/25 01/23/25 01/24/25 15:51 20:12 06:10 WBC 15.33 H RBC 3.04 L Hgb 9.3 L Hct 29.9 L MCV 98.4 MCH 30.6 MCHC 31.1 L RDW Std Deviation 46.3 RDW Coeff of Aure 13.0 Plt Count 330 MPV 9.2 L Immature Gran % (Auto) 7.8 Neut % (Auto) 63.9 Lymph % (Auto) 15.5 Deuel % (Auto) 9.5 Eos % (Auto) 2.3 Baso % (Auto) 1.0 Neut # (Auto) 9.79 H Lymph # (Auto) 2.38 Deuel # (Auto) 1.45 H Eos # (Auto) 0.36 Baso # (Auto) 0.15 Immature Gran # (Auto) 1.20 H Absolute Nucleated RBC 0.03 Nucleated RBC % (auto) 0.2 Polychromasia 1+ Sodium 135 L Potassium 3.3 L Chloride 96 L Carbon Dioxide 28 Anion Gap 11 BUN 16 Creatinine 3.27 H D Est Cr Clr Drug Dosing 16.8 eGFR 14.18 BUN/Creatinine Ratio 4.9 L Glucose 129 H POC Glucose 136 H 207 H Calcium 9.6 Magnesium 1.9 01/24/25 01/24/25 07:26 11:24 WBC RBC Hgb Hct MCV MCH MCHC RDW Std Deviation RDW Coeff of Aure Plt Count MPV Immature Gran % (Auto) Neut % (Auto) Lymph % (Auto) Deuel % (Auto) Eos % (Auto) Baso % (Auto) Neut # (Auto) Lymph # (Auto) Deuel # (Auto) Eos # (Auto) Baso # (Auto) Immature Gran # (Auto) Absolute Nucleated RBC Nucleated RBC % (auto) Polychromasia Sodium Potassium Chloride Carbon Dioxide Anion Gap BUN Creatinine Est Cr Clr Drug Dosing eGFR BUN/Creatinine Ratio Glucose POC Glucose 135 H 149 H Calcium Magnesium Diagnostic Findings No recent imaging. PG Care Time/CCT Total # of Minutes Spent Total Time Spent with Patient: Total time spent is greater than 50% in coordination of care (as documented) at patient's floor/unit and/or counseling patient: Coding Level of Care Code 77914 SUB INP/OBS CARE 2/35MIN Diagnoses Right lower lobe pneumonia J18.9 Pneumonia type: due to unspecified organism Acute respiratory failure J96.01 Respiratory failure complication: hypoxia
--- NOTE | 2025-01-24 14:01 | Hospitalist Progress Note ---
Date of Service January 24, 2025 Assessment & Plan (1) Sleep apnea: (2) History of pneumonia: (3) Hyperlipidemia: (4) Depression: (5) History of non-ST elevation myocardial infarction (NSTEMI): (6) Type 2 diabetes mellitus: Plan 74-year-old female who presented to the ER 01/18/25 with hypoxia, shortness of breath that started overnight. 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 - Switched zosyn 01/18 to rocephin 01/20 -- to unasyn 01/21---now on zosyn per pulm due to worsening of her symptoms with increasing procalcitonin - Pulm evaled, follow further recs c/w Nebulizers, wean down O2 as anatoliy. 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 - ID evaled, appreciate recs. - Pt reports overall feeling better, cough slightly better, wbc gradually trending down Clinically not any worse with ongoing cough but no shortness of breath and remains very tired Procalcitonin will be checked tomorrow and if improved will get PT and OT evaluation for possible discharge in a day or 2 Procalcitonin has reduced to 14 and white count is improving too She remains extremely weak and lethargic and does not feel like that she could go home tomorrow PT recommended rehab but the patient refused Remains generally weak and lethargic otherwise symptoms are much improved Likely to be discharged tomorrow and will need to have 2 steps O2 saturation test prior to discharge Hx ESRD on HD: Consult nephrology, normal dialysis days Monday//sat Has had dialysis today and will have next dialysis on Monday as per the patient Does not have any symptoms of fluid overload Will continue with hemodialysis as per community relations coordinator Renal hemodialysis tomorrowif she feels better following hemodialysis will be discharged Hx LINDSEY -does not use CPAP at home, unable to tolerate Hx DM: Managed on Toujeo/lispro SSI/4 times daily BGM, recheck A1C - 5.1 Depression: Continue fluoxetine Hx GERD: Continue omeprazole Full code DVT prophylaxis: hep sub - q PT/OT, CM to assist w/ dc plan Admission and Anticipated Discharge Date Admission Date: January 18, 2025 Subjective 01/22/2025 The patient was seen and examined in telemetry unit She is a status post dialysis today Complains to weakness and cough No chest pain and no palpitation, no fever no chills 01/23/2025 The patient was seen and examined in telemetry unit She is a status post dialysis for 4 hours and feels extremely tired and exhausted Still has a cough but denies any shortness of breath or chest pain 01/24/2025 Patient was seen and examined in telemetry unit She has been feeling little better but states that she is not yet ready to be discharged She refused to go to rehab and she wants to go back to her personal care facility Still requiring 2 L to maintain saturation and will need to have 2 step O2 saturation test prior to discharge Review of Systems Review of Systems: All systems reviewed and unremarkable except as noted below Physical Exam Physical Exam: Lying in bed without any acute distress Constitutional: well developed, well nourished, + ill appearing and + obese Eyes: PERRL, conjunctivae normal, anicteric sclerae ENMT: external ear and nose normal, oropharynx normal Neck: trachea midline, no thyromegaly Respiratory: no respiratory distress Auscultation: + crackles (Crackles bibasilarly more on the right than the left) and + wheezes (Occasional wheezing bilaterally) Cardiovascular: Rate/Rhythm: regular rate and regular rhythm; not tachycardic Heart Sounds: normal S1 and normal S2; no murmur Extremities: no edema Gastrointestinal (Abdomen): Inspection/Auscultation: normal bowel sounds; abdomen not distended Percussion/Palpation: abdomen soft; abdomen nontender Neurologic: normal touch/pain/proprioception and moves all extremities; no focal motor deficits Lymphatic: no cervical or axillary lymphadenopathy Results & Data Results & Data Vital Signs (Past 12 Hours) Vital Signs Temp Pulse Pulse Pulse Resp BP Pulse Ox 01/24/25 11:01 36.7 C 75 19 168/81 H 99 01/24/25 08:00 01/24/25 08:00 70 01/24/25 07:10 37.2 C 76 18 158/72 H 98 01/24/25 06:09 163/81 H 01/24/25 03:22 36.8 C 77 20 171/80 H 95 O2 Del Method O2 Flow Rate 01/24/25 11:01 Nasal Cannula 2 01/24/25 08:00 Nasal Cannula 2 01/24/25 08:00 01/24/25 07:10 Nasal Cannula 3 01/24/25 06:09 01/24/25 03:22 Nasal Cannula 3 Laboratory Results Short CBC 01/24/25 Range/Units 06:10 WBC 15.33 H (4.8-10.8) K/ul Hgb 9.3 L (12.0-16.0) g/dl Hct 29.9 L (37.0-47.0) % Plt Count 330 (130-400) K/uL BMP 01/24/25 06:10 Sodium 135 L Potassium 3.3 L Chloride 96 L Carbon Dioxide 28 BUN 16 Creatinine 3.27 H D Glucose 129 H Calcium 9.6 Medications Administered Current Inpatient Medications Acetaminophen (Acetaminophen 325 Mg Tab) 650 mg PO Q4H PRN PRN Reason: Pain or Fever Stop: 02/17/25 15:15 Last Admin: 01/22/25 21:12 Dose: 650 mg Albuterol (Albut/Ipratrop 3mg/0.5mg Neb 3 Ml Vial) 3 ml NEB Q6R PRN; Protocol PRN Reason: sob wheeze Stop: 02/18/25 11:22 Aspirin (Aspirin 81 Mg Ectab) 81 mg PO DAILY [facility] Stop: 02/18/25 08:59 Last Admin: 01/24/25 08:29 Dose: 81 mg Benzonatate (Benzonatate 100 Mg Capsule) 100 mg PO TID PRN PRN Reason: cough Stop: 02/18/25 13:59 Last Admin: 01/23/25 21:46 Dose: 100 mg Cyanocobalamin (Cyanocobalamin (B-12) 500 Mcg Tablet) 500 mcg PO QAM [facility] Stop: 02/18/25 08:59 Last Admin: 01/24/25 08:30 Dose: 500 mcg Dextrose (Dextrose 50% 50 Ml Syringe) 25 - 50 ml IV UD PRN; Protocol PRN Reason: Hypoglycemia Protocol Stop: 02/17/25 12:39 Fish Oil ([place]-3 (Purified Fish Oil) 1 Gm Cap) 1 cap PO QAM [facility] Stop: 02/18/25 08:59 Last Admin: 01/24/25 08:29 Dose: 1 cap Fluoxetine HCl (Fluoxetine Hcl 20 Mg Cap) 40 mg PO DAILY [facility] Stop: 02/18/25 08:59 Last Admin: 01/24/25 08:29 Dose: 40 mg Fluoxetine HCl (Fluoxetine Hcl 10 Mg Cap) 10 mg PO DAILY [facility] Stop: 02/18/25 08:59 Last Admin: 01/24/25 08:29 Dose: 10 mg Fluticasone Propionate (Fluticasone Propionate Na Spr 16 Gm Btl) 2 sprays NA QAM [facility] Stop: 02/18/25 09:59 Last Admin: 01/24/25 08:29 Dose: 2 sprays Glucagon (Glucagon For Inj 1 Mg Vial) 1 mg SQ UD PRN; Protocol PRN Reason: Hypoglycemia Protocol Stop: 02/17/25 12:39 Glucose (Glucose 40% Gel 15 Gm Tube) 15 - 30 gm PO UD PRN; Protocol PRN Reason: Hypoglycemia Protocol Stop: 02/17/25 12:39 Glucose (Glucose 10 Tab/Tube) 4 - 8 tab PO UD PRN; Protocol PRN Reason: Hypoglycemia Protocol Stop: 02/17/25 12:39 Guaifenesin (Guaifenesin 600 Mg Tabcr) 600 mg PO Q12 [facility] Stop: 02/18/25 09:59 Last Admin: 01/24/25 08:29 Dose: 600 mg Heparin Sodium (Porcine) (Heparin Sod 5,000 Unit/0.5 Ml Vial) 5,000 units SQ Q8 [facility] Stop: 02/17/25 21:59 Last Admin: 01/24/25 13:41 Dose: 5,000 units Promethazine HCl (Phenergan) 6.25 mg in 50.25 mls @ 201 mls/hr IV Q6H PRN PRN Reason: Nausea And Vomiting Stop: 02/20/25 01:30 Piperacillin Sod/Tazobactam Sod (Zosyn) 4.5 gm in 100 mls @ 25 mls/hr IV Q12H [facility]; Protocol Stop: 01/26/25 22:59 Last Admin: 01/24/25 11:14 Dose: 25 mls/hr Insulin Aspart (Insulin Aspart Per Unit Charge) 0 units SC ACHS [facility] Stop: 02/18/25 11:29 Last Admin: 01/24/25 12:06 Dose: 5 units Insulin Glargine (Lantus Per Unit Charge) 3 units SC HS [facility] Stop: 02/17/25 20:59 Last Admin: 01/23/25 21:45 Dose: 3 units Lactobacillus Acidophilus (Advanced Probiotic 625 Mg Capsule) 1,250 mg PO DAILY [facility] Stop: 02/19/25 10:44 Last Admin: 01/24/25 08:29 Dose: 1,250 mg Miscellaneous (Carbohydrates For Hypoglycemia ) 15 - 30 gm PO UD PRN PRN Reason: Hypoglycemia Protocol Stop: 02/17/25 12:39 Pantoprazole Sodium (Pantoprazole 40 Mg Tab) 40 mg PO QAM [facility] Stop: 02/18/25 08:59 Last Admin: 01/24/25 08:29 Dose: 40 mg Rosuvastatin Calcium (Rosuvastatin Calcium 10 Mg Tab) 10 mg PO HS [facility] Stop: 02/17/25 20:59 Last Admin: 01/23/25 21:46 Dose: 10 mg Sevelamer Carbonate (Sevelamer Carbonate 800 Mg Tab) 800 mg PO TIDM [facility] Stop: 02/17/25 16:59 Last Admin: 01/24/25 12:07 Dose: 800 mg Vitamin D (Cholecalciferol 125 Mcg (5,000 Units) Tab) 125 mcg PO QAM [facility] Stop: 02/18/25 08:59 Last Admin: 01/24/25 08:29 Dose: 125 mcg
[2025-01-25 07:21] LABS: Hematocrit (blood only) 29.0 % (37.0-47.0); Hemoglobin 9.2 g/dl (12.0-16.0); Mean Corpuscular Hemoglobin 30.5 pg (25.0-34.0); Mean Corpuscular Volume 96.0 fL (80.0-100.0); Platelet Count 357 K/uL (130-400); RDW Standard Deviation 44.8 fL (36.4-46.3); Red Blood Count 3.02 M/uL (4.20-5.40); White Blood Count 14.97 K/ul (4.8-10.8)
[2025-01-25 07:48] LABS: Anion Gap 13.0 (3-11); Blood Urea Nitrogen 34.0 mg/dl (6-23); Calcium 9.3 mg/dl (8.6-10.3); Carbon Dioxide 26.0 mmol/L (21-32); Chloride 94.0 mmol/L (98-107); Creatinine Clr Calc Pharmacy 10.6 ml/min; Glucose 141.0 mg/dl (70-99(Fasting)); Potassium 3.3 mmol/L (3.5-5.1); Sodium 133.0 mmol/L (136-145)
[2025-01-25 07:53] LABS: Basophilic Stippling 1+; Immature Granulocytes # (auto) 1.15 K/uL (0.01-0.20); Immature Granulocytes % (auto) 7.7 %; Polychromasia 1+
--- NOTE | 2025-01-25 12:34 | Hospitalist Progress Note ---
Date of Service January 25, 2025 Assessment & Plan (1) Sleep apnea: (2) History of pneumonia: (3) Hyperlipidemia: (4) Depression: (5) History of non-ST elevation myocardial infarction (NSTEMI): (6) Type 2 diabetes mellitus: Plan 74-year-old female who presented to the ER 01/18/25 with hypoxia, shortness of breath that started overnight. 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 - Switched zosyn 01/18 to rocephin 01/20 -- to unasyn 01/21---now on zosyn per pulm due to worsening of her symptoms with increasing procalcitonin - Pulm evaled, follow further recs c/w Nebulizers, wean down O2 as anatoliy. 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 - ID evaled, appreciate recs. - Pt reports overall feeling better, cough slightly better, wbc gradually trending down Clinically not any worse with ongoing cough but no shortness of breath and remains very tired Procalcitonin will be checked tomorrow and if improved will get PT and OT evaluation for possible discharge in a day or 2 Procalcitonin has reduced to 14 and white count is improving too She remains extremely weak and lethargic and does not feel like that she could go home tomorrow PT recommended rehab but the patient refused Remains generally weak and lethargic otherwise symptoms are much improved Likely to be discharged tomorrow and will need to have 2 steps O2 saturation test prior to discharge Remains medically stable with much improvement of her general condition Likely discharge after dialysis this afternoon -Will need to have a 2 steps O2 saturation test prior to discharge Hx ESRD on HD: Consult nephrology, normal dialysis days Monday//sat Has had dialysis today and will have next dialysis on Monday as per the patient Does not have any symptoms of fluid overload Will continue with hemodialysis as per leisure studies professor Renal hemodialysis tomorrowif she feels better following hemodialysis will be discharged Will continue with hemodialysis as per leisure studies professor Hx LINDSEY -does not use CPAP at home, unable to tolerate Hx DM: Managed on Toujeo/lispro SSI/4 times daily BGM, recheck A1C - 5.1 Depression: Continue fluoxetine Hx GERD: Continue omeprazole Full code DVT prophylaxis: hep sub - q PT/OT, CM to assist w/ dc plan Admission and Anticipated Discharge Date Admission Date: January 18, 2025 Subjective 01/22/2025 The patient was seen and examined in telemetry unit She is a status post dialysis today Complains to weakness and cough No chest pain and no palpitation, no fever no chills 01/23/2025 The patient was seen and examined in telemetry unit She is a status post dialysis for 4 hours and feels extremely tired and exhausted Still has a cough but denies any shortness of breath or chest pain 01/24/2025 Patient was seen and examined in telemetry unit She has been feeling little better but states that she is not yet ready to be discharged She refused to go to rehab and she wants to go back to her personal care facility Still requiring 2 L to maintain saturation and will need to have 2 step O2 saturation test prior to discharge 01/25/2025 Patient was seen and examined in telemetry unit She has been much better today Cough is minimal and no shortness of breath at rest After dialysis if she feels better she will be discharged to the personal-care facility today sometimes Review of Systems Review of Systems: All systems reviewed and unremarkable except as noted below Physical Exam Physical Exam: Lying in bed without any acute distress Constitutional: well developed, well nourished, + ill appearing and + obese Eyes: PERRL, conjunctivae normal, anicteric sclerae ENMT: external ear and nose normal, oropharynx normal Neck: trachea midline, no thyromegaly Respiratory: no respiratory distress Auscultation: + crackles (Crackles bibasilarly more on the right than the left) and + wheezes (Occasional wheezing bilaterally) Cardiovascular: Rate/Rhythm: regular rate and regular rhythm; not tachycardic Heart Sounds: normal S1 and normal S2; no murmur Extremities: no edema Gastrointestinal (Abdomen): Inspection/Auscultation: normal bowel sounds; abdomen not distended Percussion/Palpation: abdomen soft; abdomen nontender Neurologic: normal touch/pain/proprioception and moves all extremities; no focal motor deficits Lymphatic: no cervical or axillary lymphadenopathy Results & Data Results & Data Vital Signs (Past 12 Hours) Vital Signs Temp Pulse Pulse Pulse Resp BP BP 01/25/25 12:00 75 138/67 01/25/25 11:30 78 126/62 01/25/25 11:00 82 144/69 H 01/25/25 10:30 78 147/80 H 01/25/25 10:23 80 178/80 H 01/25/25 10:15 36.6 C 84 01/25/25 08:00 01/25/25 07:00 36.8 C 75 21 168/71 H 01/25/25 07:00 73 01/25/25 03:16 36.8 C 76 18 175/81 H Pulse Ox O2 Del Method O2 Flow Rate 01/25/25 12:00 01/25/25 11:30 01/25/25 11:00 01/25/25 10:30 01/25/25 10:23 01/25/25 10:15 01/25/25 08:00 Nasal Cannula 2 01/25/25 07:00 98 Room Air 01/25/25 07:00 01/25/25 03:16 98 Nasal Cannula 2 Laboratory Results Short CBC 01/25/25 Range/Units 06:58 WBC 14.97 H (4.8-10.8) K/ul Hgb 9.2 L (12.0-16.0) g/dl Hct 29.0 L (37.0-47.0) % Plt Count 357 (130-400) K/uL BMP 01/25/25 06:58 Sodium 133 L Potassium 3.3 L Chloride 94 L Carbon Dioxide 26 BUN 34 H Creatinine 4.98 H* D Glucose 141 H Calcium 9.3 Medications Administered Current Inpatient Medications Acetaminophen (Acetaminophen 325 Mg Tab) 650 mg PO Q4H PRN PRN Reason: Pain or Fever Stop: 02/17/25 15:15 Last Admin: 01/22/25 21:12 Dose: 650 mg Albuterol (Albut/Ipratrop 3mg/0.5mg Neb 3 Ml Vial) 3 ml NEB Q6R PRN; Protocol PRN Reason: sob wheeze Stop: 02/18/25 11:22 Aspirin (Aspirin 81 Mg Ectab) 81 mg PO DAILY [facility] Stop: 02/18/25 08:59 Last Admin: 01/25/25 09:32 Dose: 81 mg Benzonatate (Benzonatate 100 Mg Capsule) 100 mg PO TID PRN PRN Reason: cough Stop: 02/18/25 13:59 Last Admin: 01/23/25 21:46 Dose: 100 mg Cyanocobalamin (Cyanocobalamin (B-12) 500 Mcg Tablet) 500 mcg PO QAM [facility] Stop: 02/18/25 08:59 Last Admin: 01/25/25 09:32 Dose: 500 mcg Dextrose (Dextrose 50% 50 Ml Syringe) 25 - 50 ml IV UD PRN; Protocol PRN Reason: Hypoglycemia Protocol Stop: 02/17/25 12:39 Fish Oil ([place]-3 (Purified Fish Oil) 1 Gm Cap) 1 cap PO QAM [facility] Stop: 02/18/25 08:59 Last Admin: 01/25/25 09:32 Dose: 1 cap Fluoxetine HCl (Fluoxetine Hcl 20 Mg Cap) 40 mg PO DAILY [facility] Stop: 02/18/25 08:59 Last Admin: 01/25/25 09:31 Dose: 40 mg Fluoxetine HCl (Fluoxetine Hcl 10 Mg Cap) 10 mg PO DAILY [facility] Stop: 02/18/25 08:59 Last Admin: 01/25/25 09:33 Dose: 10 mg Fluticasone Propionate (Fluticasone Propionate Na Spr 16 Gm Btl) 2 sprays NA QAM [facility] Stop: 02/18/25 09:59 Last Admin: 01/25/25 09:30 Dose: 2 sprays Glucagon (Glucagon For Inj 1 Mg Vial) 1 mg SQ UD PRN; Protocol PRN Reason: Hypoglycemia Protocol Stop: 02/17/25 12:39 Glucose (Glucose 40% Gel 15 Gm Tube) 15 - 30 gm PO UD PRN; Protocol PRN Reason: Hypoglycemia Protocol Stop: 02/17/25 12:39 Glucose (Glucose 10 Tab/Tube) 4 - 8 tab PO UD PRN; Protocol PRN Reason: Hypoglycemia Protocol Stop: 02/17/25 12:39 Guaifenesin (Guaifenesin 600 Mg Tabcr) 600 mg PO Q12 [facility] Stop: 02/18/25 09:59 Last Admin: 01/25/25 09:32 Dose: 600 mg Heparin Sodium (Porcine) (Heparin Sod 5,000 Unit/0.5 Ml Vial) 5,000 units SQ Q8 [facility] Stop: 02/17/25 21:59 Last Admin: 01/25/25 06:42 Dose: 5,000 units Promethazine HCl (Phenergan) 6.25 mg in 50.25 mls @ 201 mls/hr IV Q6H PRN PRN Reason: Nausea And Vomiting Stop: 02/20/25 01:30 Piperacillin Sod/Tazobactam Sod (Zosyn) 4.5 gm in 100 mls @ 25 mls/hr IV Q12H [facility]; Protocol Stop: 01/26/25 22:59 Last Infusion: 01/25/25 01:33 Dose: Infused Insulin Aspart (Insulin Aspart Per Unit Charge) 0 units SC ACHS [facility] Stop: 02/18/25 11:29 Last Admin: 01/25/25 09:18 Dose: Not Given Insulin Glargine (Lantus Per Unit Charge) 3 units SC HS [facility] Stop: 02/17/25 20:59 Last Admin: 01/24/25 21:31 Dose: 3 units Lactobacillus Acidophilus (Advanced Probiotic 625 Mg Capsule) 1,250 mg PO DAILY [facility] Stop: 02/19/25 10:44 Last Admin: 01/25/25 09:31 Dose: 1,250 mg Miscellaneous (Carbohydrates For Hypoglycemia ) 15 - 30 gm PO UD PRN PRN Reason: Hypoglycemia Protocol Stop: 02/17/25 12:39 Pantoprazole Sodium (Pantoprazole 40 Mg Tab) 40 mg PO QAM [facility] Stop: 02/18/25 08:59 Last Admin: 01/25/25 09:31 Dose: 40 mg Rosuvastatin Calcium (Rosuvastatin Calcium 10 Mg Tab) 10 mg PO HS [facility] Stop: 02/17/25 20:59 Last Admin: 01/24/25 21:32 Dose: 10 mg Sevelamer Carbonate (Sevelamer Carbonate 800 Mg Tab) 800 mg PO TIDM [facility] Stop: 02/17/25 16:59 Last Admin: 01/25/25 09:32 Dose: 800 mg Vitamin D (Cholecalciferol 125 Mcg (5,000 Units) Tab) 125 mcg PO QAM [facility] Stop: 02/18/25 08:59 Last Admin: 01/25/25 09:32 Dose: 125 mcg
--- NOTE | 2025-01-25 15:11 | Nephrology Progress Note ---
Date of Service January 25, 2025 Assessment & Plan (1) ESRD (end stage renal disease) on dialysis: Plan: patient with ESRD on dialysis Monday. Patient missed outpatient dialysis on Monday. She is now admitted with right lower lobe pneumonia. Electrolytes are stable and with mild volume overload ongoing on CXR 01/21. Planned HD txs this week are 01/20, 01/22, 01/23, 01/25 (4 total to compensate for missed tx on 01/18; AND consider longer txs to help manage volume>>in for 4 hrs today as tolerated)>> IP rehab recommended but pt refusing. plans to return to [facility] > will therefore plan next HD on 01/28 as OP K 3.3 today >> ran on 3 bath; no need to replete K > daily bmp (2) Right lower lobe pneumonia: Plan: Patient with right lower lobe pneumonia, presume H flu. still w/ stubbornly elevated WBC at 15K today; had been getting vancomycin and Zosyn renally dosed; switched January 21 2 Unasyn. Pulm following; procal improving (3) Bacteremia: Plan: HFlu on 01/18; also w/ H flu serology positive. -continue abtx -consider repeat blood cxs if improvement stalls Admission and Anticipated Discharge Date Admission Date: January 18, 2025 Subjective signed off early from dialysis today: Too restless does tolerate long treatment she tells me. feels sob and cough unchnaged; ongoing exertional sob Review of Systems 2 Review of Systems: All systems reviewed & are unremarkable except as noted in Subjective Physical Exam 2 Constitutional: well developed (lying in bed on ), well nourished, + obese and cooperative; no acute distress Eyes: EOM intact bilaterally ENMT: Mouth: + dry oral mucous membranes Respiratory: normal respiratory effort; no labored breathing and no cough (today none) Auscultation: + diminished lung sounds and + crackles (throughout R post field and on L base) Gastrointestinal (Abdomen): Inspection/Auscultation: normal bowel sounds P ercussion/Palpation: abdomen soft; abdomen nontender Musculoskeletal: Extremities: strength 5/5 throughout Skin: no rashes, warm and dry Results & Data Vital Signs (Past 12 Hours) Vital Signs Temp Pulse Pulse Pulse Resp BP BP 01/25/25 14:05 36.5 C 69 131/63 01/25/25 13:30 79 138/88 01/25/25 13:00 76 130/59 L 01/25/25 12:30 75 110/52 L 01/25/25 12:00 75 138/67 01/25/25 11:30 78 126/62 01/25/25 11:00 82 144/69 H 01/25/25 10:30 78 147/80 H 01/25/25 10:23 80 178/80 H 01/25/25 10:15 36.6 C 84 01/25/25 08:00 01/25/25 07:00 36.8 C 75 21 168/71 H 01/25/25 07:00 73 01/25/25 03:16 36.8 C 76 18 175/81 H Pulse Ox O2 Del Method O2 Flow Rate 01/25/25 14:05 01/25/25 13:30 01/25/25 13:00 01/25/25 12:30 01/25/25 12:00 01/25/25 11:30 01/25/25 11:00 01/25/25 10:30 01/25/25 10:23 01/25/25 10:15 01/25/25 08:00 Nasal Cannula 2 01/25/25 07:00 98 Room Air 01/25/25 07:00 01/25/25 03:16 98 Nasal Cannula 2 Laboratory Results 01/25/25 06:58 01/25/25 06:58 (2) Right lower lobe pneumonia Pneumonia type: due to unspecified organism Qualified Code(s): J18.9 - Pneumonia, unspecified organism
[2025-01-26 09:02] LABS: Anion Gap 15.0 (3-11); Blood Urea Nitrogen 22.0 mg/dl (6-23); Calcium 9.7 mg/dl (8.6-10.3); Carbon Dioxide 26.0 mmol/L (21-32); Chloride 92.0 mmol/L (98-107); Creatinine Clr Calc Pharmacy 13.1 ml/min; Glucose 243.0 mg/dl (70-99(Fasting)); Potassium 3.3 mmol/L (3.5-5.1); Sodium 133.0 mmol/L (136-145)
--- NOTE | 2025-01-26 11:28 | Hospitalist Progress Note ---
Date of Service January 26, 2025 Assessment & Plan (1) Sleep apnea: (2) History of pneumonia: (3) Hyperlipidemia: (4) Depression: (5) History of non-ST elevation myocardial infarction (NSTEMI): (6) Type 2 diabetes mellitus: Plan 74-year-old female who presented to the ER 01/18/25 with hypoxia, shortness of breath that started overnight. She is being managed for the following: Acute hypoxic respiratory failure Right lower lobe pneumonia: Gram neg bacteremia: Symptoms started overnight [employer], found to have fever of 100 F Hypoxic in the 70s on room air, improved on BiPAP on arrival to the ED VBG with mild acidosis on arrival, chest x-ray with right lower lobe pneumonia, viral panel negative Blood cultures - H influenzae, MRSA screen neg, H influenzae positive. - Switched zosyn 01/18 to rocephin 01/20 -- to unasyn 01/21---now on zosyn per pulm due to worsening of her symptoms with increasing procalcitonin - Pulm evaled, follow further recs c/w Nebulizers, wean down O2 as anatoliy. No home O2 need [employer]. - ID evaled, appreciate recs. - Pt reports overall feeling better, cough slightly better, wbc gradually trending down Clinically not any worse with ongoing cough but no shortness of breath and remains very tired Procalcitonin will be checked tomorrow and if improved will get PT and OT evaluation for possible discharge in a day or 2 Procalcitonin has reduced to 14 and white count is improving too She remains extremely weak and lethargic and does not feel like that she could go home tomorrow PT recommended rehab but the patient refused Remains generally weak and lethargic otherwise symptoms are much improved Likely to be discharged tomorrow and will need to have 2 steps O2 saturation test prior to discharge Remains medically stable with much improvement of her general condition Remains medically stable with decreased symptoms Has had 2 steps O2 saturation test and she does not require any oxygen but her oxygen level dropped at rest and also while sleeping Will have nocturnal pulse oximetry prior to discharge likely tomorrow Hx ESRD on HD: Consult nephrology, normal dialysis days Monday//sat Has had dialysis today and will have next dialysis on Monday as per the patient Does not have any symptoms of fluid overload Will continue with hemodialysis as per quality associate Renal hemodialysis tomorrowif she feels better following hemodialysis will be discharged Will continue with hemodialysis as per quality associate Hx LINDSEY -does not use CPAP at home, unable to tolerate Hx DM: Managed on Toujeo/lispro SSI/4 times daily BGM, recheck A1C - 5.1 Depression: Continue fluoxetine Hx GERD: Continue omeprazole Full code DVT prophylaxis: hep sub - q PT/OT, CM to assist w/ dc plan Admission and Anticipated Discharge Date Admission Date: January 18, 2025 Subjective 01/22/2025 The patient was seen and examined in telemetry unit She is a status post dialysis today Complains to weakness and cough No chest pain and no palpitation, no fever no chills 01/23/2025 The patient was seen and examined in telemetry unit She is a status post dialysis for 4 hours and feels extremely tired and exhausted Still has a cough but denies any shortness of breath or chest pain 01/24/2025 Patient was seen and examined in telemetry unit She has been feeling little better but states that she is not yet ready to be discharged She refused to go to rehab and she wants to go back to her personal care facility Still requiring 2 L to maintain saturation and will need to have 2 step O2 saturation test prior to discharge 01/25/2025 Patient was seen and examined in telemetry unit She has been much better today Cough is minimal and no shortness of breath at rest After dialysis if she feels better she will be discharged to the personal-care facility today sometimes 01/26/2025 Patient was seen and examined in telemetry unit She has been feeling better but remains extremely weak and lethargic Her cough is minimal and requiring 2 L at rest Review of Systems Review of Systems: All systems reviewed and unremarkable except as noted below Physical Exam Physical Exam: Lying in bed without any acute distress Constitutional: well developed, well nourished, + ill appearing and + obese Eyes: PERRL, conjunctivae normal, anicteric sclerae ENMT: external ear and nose normal, oropharynx normal Neck: trachea midline, no thyromegaly Respiratory: no respiratory distress Auscultation: + crackles (Crackles bibasilarly more on the right than the left) and + wheezes (Occasional wheezing bilaterally) Cardiovascular: Rate/Rhythm: regular rate and regular rhythm; not tachycardic Heart Sounds: normal S1 and normal S2; no murmur Extremities: no edema Gastrointestinal (Abdomen): Inspection/Auscultation: normal bowel sounds; abdomen not distended Percussion/Palpation: abdomen soft; abdomen nontender Neurologic: normal touch/pain/proprioception and moves all extremities; no focal motor deficits Lymphatic: no cervical or axillary lymphadenopathy Results & Data Results & Data Vital Signs (Past 12 Hours) Vital Signs Temp Pulse Pulse Pulse Pulse Pulse Resp 01/26/25 11:08 100 H 79 01/26/25 08:00 01/26/25 08:00 36.7 C 99 H 22 01/26/25 07:42 78 01/26/25 04:58 36.7 C 71 16 01/25/25 23:37 36.8 C 77 18 Resp Resp BP Pulse Ox Pulse Ox Pulse Ox O2 Del Method 01/26/25 11:08 20 20 91 92 01/26/25 08:00 Nasal Cannula 01/26/25 08:00 159/62 H 95 Nasal Cannula 01/26/25 07:42 01/26/25 04:58 148/62 H 98 Nasal Cannula 01/25/25 23:37 151/72 H 96 Nasal Cannula O2 Flow Rate 01/26/25 11:08 01/26/25 08:00 2 01/26/25 08:00 2 01/26/25 07:42 01/26/25 04:58 1 01/25/25 23:37 1 Laboratory Results [facility] 01/26/25 08:26 Sodium 133 L Potassium 3.3 L Chloride 92 L Carbon Dioxide 26 BUN 22 Creatinine 4.03 H D Glucose 243 H Calcium 9.7 Medications Administered Current Inpatient Medications Acetaminophen (Acetaminophen 325 Mg Tab) 650 mg PO Q4H PRN PRN Reason: Pain or Fever Stop: 02/17/25 15:15 Last Admin: 01/25/25 21:51 Dose: 650 mg Albuterol (Albut/Ipratrop 3mg/0.5mg Neb 3 Ml Vial) 3 ml NEB Q6R PRN; Protocol PRN Reason: sob wheeze Stop: 02/18/25 11:22 Aspirin (Aspirin 81 Mg Ectab) 81 mg PO DAILY JESS Stop: 02/18/25 08:59 Last Admin: 01/26/25 08:29 Dose: 81 mg Benzonatate (Benzonatate 100 Mg Capsule) 100 mg PO TID PRN PRN Reason: cough Stop: 02/18/25 13:59 Last Admin: 01/23/25 21:46 Dose: 100 mg Cyanocobalamin (Cyanocobalamin (B-12) 500 Mcg Tablet) 500 mcg PO QAM JESS Stop: 02/18/25 08:59 Last Admin: 01/26/25 08:29 Dose: 500 mcg Dextrose (Dextrose 50% 50 Ml Syringe) 25 - 50 ml IV UD PRN; Protocol PRN Reason: Hypoglycemia Protocol Stop: 02/17/25 12:39 Fish Oil ([place]-3 (Purified Fish Oil) 1 Gm Cap) 1 cap PO QAM JESS Stop: 02/18/25 08:59 Last Admin: 01/26/25 08:29 Dose: 1 cap Fluoxetine HCl (Fluoxetine Hcl 20 Mg Cap) 40 mg PO DAILY JESS Stop: 02/18/25 08:59 Last Admin: 01/26/25 08:29 Dose: 40 mg Fluoxetine HCl (Fluoxetine Hcl 10 Mg Cap) 10 mg PO DAILY JESS Stop: 02/18/25 08:59 Last Admin: 01/26/25 08:29 Dose: 10 mg Fluticasone Propionate (Fluticasone Propionate Na Spr 16 Gm Btl) 2 sprays NA QAM JESS Stop: 02/18/25 09:59 Last Admin: 01/26/25 08:30 Dose: 2 sprays Glucagon (Glucagon For Inj 1 Mg Vial) 1 mg SQ UD PRN; Protocol PRN Reason: Hypoglycemia Protocol Stop: 02/17/25 12:39 Glucose (Glucose 40% Gel 15 Gm Tube) 15 - 30 gm PO UD PRN; Protocol PRN Reason: Hypoglycemia Protocol Stop: 02/17/25 12:39 Glucose (Glucose 10 Tab/Tube) 4 - 8 tab PO UD PRN; Protocol PRN Reason: Hypoglycemia Protocol Stop: 02/17/25 12:39 Guaifenesin (Guaifenesin 600 Mg Tabcr) 600 mg PO Q12 JESS Stop: 02/18/25 09:59 Last Admin: 01/26/25 08:29 Dose: 600 mg Heparin Sodium (Porcine) (Heparin Sod 5,000 Unit/0.5 Ml Vial) 5,000 units SQ Q8 JESS Stop: 02/17/25 21:59 Last Admin: 01/26/25 06:48 Dose: 5,000 units Promethazine HCl (Phenergan) 6.25 mg in 50.25 mls @ 201 mls/hr IV Q6H PRN PRN Reason: Nausea And Vomiting Stop: 02/20/25 01:30 Piperacillin Sod/Tazobactam Sod (Zosyn) 4.5 gm in 100 mls @ 25 mls/hr IV Q12H JESS; Protocol Stop: 01/26/25 22:59 Last Admin: 01/25/25 21:54 Dose: Not Given Insulin Aspart (Insulin Aspart Per Unit Charge) 0 units SC ACHS JESS Stop: 02/18/25 11:29 Last Admin: 01/26/25 08:27 Dose: 4 units Insulin Glargine (Lantus Per Unit Charge) 3 units SC HS [facility] Stop: 02/17/25 20:59 Last Admin: 01/25/25 21:51 Dose: 3 units Lactobacillus Acidophilus (Advanced Probiotic 625 Mg Capsule) 1,250 mg PO DAILY JESS Stop: 02/19/25 10:44 Last Admin: 01/26/25 08:29 Dose: 1,250 mg Miscellaneous (Carbohydrates For Hypoglycemia ) 15 - 30 gm PO UD PRN PRN Reason: Hypoglycemia Protocol Stop: 02/17/25 12:39 Pantoprazole Sodium (Pantoprazole 40 Mg Tab) 40 mg PO QAM JESS Stop: 02/18/25 08:59 Last Admin: 01/26/25 08:29 Dose: 40 mg Rosuvastatin Calcium (Rosuvastatin Calcium 10 Mg Tab) 10 mg PO HS JESS Stop: 02/17/25 20:59 Last Admin: 01/25/25 21:52 Dose: 10 mg Sevelamer Carbonate (Sevelamer Carbonate 800 Mg Tab) 800 mg PO TIDM JESS Stop: 02/17/25 16:59 Last Admin: 01/26/25 08:29 Dose: 800 mg Vitamin D (Cholecalciferol 125 Mcg (5,000 Units) Tab) 125 mcg PO QAM JESS Stop: 02/18/25 08:59 Last Admin: 01/26/25 08:29 Dose: 125 mcg
[2025-01-27 04:45] VITALS: TEMP 97.9
[2025-01-27 07:00] VITALS: BP 179/76; RESP 18; O2SAT 100
--- NOTE | 2025-01-27 10:39 | Hospitalist Progress Note ---
Date of Service January 27, 2025 Assessment & Plan (1) Sleep apnea: (2) History of pneumonia: (3) Hyperlipidemia: (4) Depression: (5) History of non-ST elevation myocardial infarction (NSTEMI): (6) Type 2 diabetes mellitus: Plan 74-year-old female who presented to the ER 01/18/25 with hypoxia, shortness of breath that started overnight. She is being managed for the following: Acute hypoxic respiratory failure Right lower lobe pneumonia: Gram neg bacteremia: Symptoms started overnight [employer], found to have fever of 100 F Hypoxic in the 70s on room air, improved on BiPAP on arrival to the ED VBG with mild acidosis on arrival, chest x-ray with right lower lobe pneumonia, viral panel negative Blood cultures - H influenzae, MRSA screen neg, H influenzae positive. - Switched zosyn 01/18 to rocephin 01/20 -- to unasyn 01/21---now on zosyn per pulm due to worsening of her symptoms with increasing procalcitonin - Pulm evaled, follow further recs c/w Nebulizers, wean down O2 as anatoliy. No home O2 need [employer]. - ID evaled, appreciate recs. - Pt reports overall feeling better, cough slightly better, wbc gradually trending down Clinically not any worse with ongoing cough but no shortness of breath and remains very tired Procalcitonin will be checked tomorrow and if improved will get PT and OT evaluation for possible discharge in a day or 2 Procalcitonin has reduced to 14 and white count is improving too She remains extremely weak and lethargic and does not feel like that she could go home tomorrow PT recommended rehab but the patient refused Remains generally weak and lethargic otherwise symptoms are much improved Likely to be discharged tomorrow and will need to have 2 steps O2 saturation test prior to discharge Remains medically stable with much improvement of her general condition Remains medically stable with decreased symptoms Has had 2 steps O2 saturation test and she does not require any oxygen but her oxygen level dropped at rest and also while sleeping Will have nocturnal pulse oximetry prior to discharge likely tomorrow Remains medically stable with minimal cough but no shortness of breath Nocturnal pulse oximetry did not show any requirement of oxygen She will be discharged this afternoon to personal care facility and her course of antibiotic was finished. Hx ESRD on HD: Consult nephrology, normal dialysis days Monday//mon Has had dialysis today and will have next dialysis on Monday as per the patient Does not have any symptoms of fluid overload Will continue with hemodialysis as per homeowner association manager Renal hemodialysis tomorrowif she feels better following hemodialysis will be discharged Will continue with hemodialysis as per homeowner association manager Strongly advised to continue with dialysis as an outpatient Hx LINDSEY -does not use CPAP at home, unable to tolerate Hx DM: Managed on Toujeo/lispro SSI/4 times daily BGM, recheck A1C - 5.1 Depression: Continue fluoxetine Hx GERD: Continue omeprazole Full code DVT prophylaxis: hep sub - q PT/OT, CM to assist w/ dc plan Admission and Anticipated Discharge Date Admission Date: January 18, 2025 Subjective 01/22/2025 The patient was seen and examined in telemetry unit She is a status post dialysis today Complains to weakness and cough No chest pain and no palpitation, no fever no chills 01/23/2025 The patient was seen and examined in telemetry unit She is a status post dialysis for 4 hours and feels extremely tired and exhausted Still has a cough but denies any shortness of breath or chest pain 01/24/2025 Patient was seen and examined in telemetry unit She has been feeling little better but states that she is not yet ready to be discharged She refused to go to rehab and she wants to go back to her personal care facility Still requiring 2 L to maintain saturation and will need to have 2 step O2 saturation test prior to discharge 01/25/2025 Patient was seen and examined in telemetry unit She has been much better today Cough is minimal and no shortness of breath at rest After dialysis if she feels better she will be discharged to the personal-care facility today sometimes 01/26/2025 Patient was seen and examined in telemetry unit She has been feeling better but remains extremely weak and lethargic Her cough is minimal and requiring 2 L 01/27/2025 The patient was seen and examined in telemetry unit She has been stable with minimal cough but no shortness of breath She has had nocturnal pulse oximetry which showed that she will not need any oxygen at night or at rest She will be discharged to the personal care facility this afternoon Review of Systems Review of Systems: All systems reviewed and unremarkable except as noted below Physical Exam Physical Exam: Lying in bed without any acute distress Constitutional: well developed, well nourished, + ill appearing and + obese Eyes: PERRL, conjunctivae normal, anicteric sclerae ENMT: external ear and nose normal, oropharynx normal Neck: trachea midline, no thyromegaly Respiratory: no respiratory distress Auscultation: + crackles (Crackles bibasilarly more on the right than the left) and + wheezes (Occasional wheezing bilaterally) Cardiovascular: Rate/Rhythm: regular rate and regular rhythm; not tachycardic Heart Sounds: normal S1 and normal S2; no murmur Extremities: no edema Gastrointestinal (Abdomen): Inspection/Auscultation: normal bowel sounds; abdomen not distended Percussion/Palpation: abdomen soft; abdomen nontender Neurologic: normal touch/pain/proprioception and moves all extremities; no focal motor deficits Lymphatic: no cervical or axillary lymphadenopathy Results & Data Results & Data Vital Signs (Past 12 Hours) Vital Signs Temp Pulse Pulse Pulse Pulse Resp BP 01/27/25 08:00 01/27/25 06:58 36.6 C 79 18 179/76 H 01/27/25 03:00 36.6 C 78 17 131/59 L 01/27/25 02:32 74 01/26/25 23:56 36.7 C 82 17 147/65 H 01/26/25 23:55 84 01/26/25 22:55 85 Pulse Ox Pulse Ox O2 Del Method O2 Del Method O2 Flow Rate 01/27/25 08:00 Room Air, Nasal Cannula, CPAP 2 01/27/25 06:58 100 Nasal Cannula 2 01/27/25 03:00 97 CPAP 01/27/25 02:32 96 Room Air, CPAP 01/26/25 23:56 93 CPAP 01/26/25 23:55 01/26/25 22:55 95 Room Air, CPAP Medications Administered Current Inpatient Medications Acetaminophen (Acetaminophen 325 Mg Tab) 650 mg PO Q4H PRN PRN Reason: Pain or Fever Stop: 02/17/25 15:15 Last Admin: 01/25/25 21:51 Dose: 650 mg Albuterol (Albut/Ipratrop 3mg/0.5mg Neb 3 Ml Vial) 3 ml NEB Q6R PRN; Protocol PRN Reason: sob wheeze Stop: 02/18/25 11:22 Aspirin (Aspirin 81 Mg Ectab) 81 mg PO DAILY JESS Stop: 02/18/25 08:59 Last Admin: 01/27/25 08:35 Dose: 81 mg Benzonatate (Benzonatate 100 Mg Capsule) 100 mg PO TID PRN PRN Reason: cough Stop: 02/18/25 13:59 Last Admin: 01/23/25 21:46 Dose: 100 mg Cyanocobalamin (Cyanocobalamin (B-12) 500 Mcg Tablet) 500 mcg PO QAM JESS Stop: 02/18/25 08:59 Last Admin: 01/27/25 08:35 Dose: 500 mcg Dextrose (Dextrose 50% 50 Ml Syringe) 25 - 50 ml IV UD PRN; Protocol PRN Reason: Hypoglycemia Protocol Stop: 02/17/25 12:39 Fish Oil ([place]-3 (Purified Fish Oil) 1 Gm Cap) 1 cap PO QAM [facility] Stop: 02/18/25 08:59 Last Admin: 01/27/25 08:35 Dose: 1 cap Fluoxetine HCl (Fluoxetine Hcl 20 Mg Cap) 40 mg PO DAILY JESS Stop: 02/18/25 08:59 Last Admin: 01/27/25 08:35 Dose: 40 mg Fluoxetine HCl (Fluoxetine Hcl 10 Mg Cap) 10 mg PO DAILY [facility] Stop: 02/18/25 08:59 Last Admin: 01/27/25 08:35 Dose: 10 mg Fluticasone Propionate (Fluticasone Propionate Na Spr 16 Gm Btl) 2 sprays NA QAM [facility] Stop: 02/18/25 09:59 Last Admin: 01/27/25 08:38 Dose: 2 sprays Glucagon (Glucagon For Inj 1 Mg Vial) 1 mg SQ UD PRN; Protocol PRN Reason: Hypoglycemia Protocol Stop: 02/17/25 12:39 Glucose (Glucose 40% Gel 15 Gm Tube) 15 - 30 gm PO UD PRN; Protocol PRN Reason: Hypoglycemia Protocol Stop: 02/17/25 12:39 Glucose (Glucose 10 Tab/Tube) 4 - 8 tab PO UD PRN; Protocol PRN Reason: Hypoglycemia Protocol Stop: 02/17/25 12:39 Guaifenesin (Guaifenesin 600 Mg Tabcr) 600 mg PO Q12 JESS Stop: 02/18/25 09:59 Last Admin: 01/27/25 08:35 Dose: 600 mg Heparin Sodium (Porcine) (Heparin Sod 5,000 Unit/0.5 Ml Vial) 5,000 units SQ Q8 JESS Stop: 02/17/25 21:59 Last Admin: 01/27/25 05:56 Dose: 5,000 units Promethazine HCl (Phenergan) 6.25 mg in 50.25 mls @ 201 mls/hr IV Q6H PRN PRN Reason: Nausea And Vomiting Stop: 02/20/25 01:30 Insulin Aspart (Insulin Aspart Per Unit Charge) 0 units SC ACHS JESS Stop: 02/18/25 11:29 Last Admin: 01/27/25 08:33 Dose: 3 units Insulin Glargine (Lantus Per Unit Charge) 3 units SC HS JESS Stop: 02/17/25 20:59 Last Admin: 01/26/25 21:28 Dose: 3 units Lactobacillus Acidophilus (Advanced Probiotic 625 Mg Capsule) 1,250 mg PO DAILY [facility] Stop: 02/19/25 10:44 Last Admin: 01/27/25 08:35 Dose: 1,250 mg Miscellaneous (Carbohydrates For Hypoglycemia ) 15 - 30 gm PO UD PRN PRN Reason: Hypoglycemia Protocol Stop: 02/17/25 12:39 Pantoprazole Sodium (Pantoprazole 40 Mg Tab) 40 mg PO QAM JESS Stop: 02/18/25 08:59 Last Admin: 01/27/25 08:35 Dose: 40 mg Rosuvastatin Calcium (Rosuvastatin Calcium 10 Mg Tab) 10 mg PO HS [facility] Stop: 02/17/25 20:59 Last Admin: 01/26/25 21:30 Dose: 10 mg Sevelamer Carbonate (Sevelamer Carbonate 800 Mg Tab) 800 mg PO TIDM JESS Stop: 02/17/25 16:59 Last Admin: 01/27/25 08:35 Dose: 800 mg Vitamin D (Cholecalciferol 125 Mcg (5,000 Units) Tab) 125 mcg PO QAM JESS Stop: 02/18/25 08:59 Last Admin: 01/27/25 08:36 Dose: 125 mcg
[2025-01-27 13:15] VITALS: PULSE 78
--- NOTE | 2025-01-27 17:44 | Discharge Summary ---
Date of Service January 27, 2025 Admission HPI Per Admitting Provider The patient is a 74 year old female with a PMH of DM2, insulin-dependent, HLD, obesity, sleep apnea, not on CPAP, ESRD on dialysis Monday//Monday, major depression, GERD, nystagmus who currently resides in an assisted living home who presented to the ED on 01/18/25 with complaints of shortness of breath. The patient reports having a normal day yesterday and overnight developing shortness of, nausea/vomiting/diarrhea. Patient also reports developing a cough bringing up yellow and translucent sputum. Denies any issues with trouble swallowing. Does also report a chronic runny nose. Reported an objective fever taken by the nurse overnight at 100 F. Also reports some generalized abdominal pain. Denies any sick contacts. Denies any chills. Patient also reports oxygen levels been in the 70s and the nurse checked at the [facility]. On arrival to the ED, patient was placed on nonrebreather mask with oxygen levels in the 80s, this then improved with BiPAP mask. VBG with a pH of 7.3, CO2 46, pO2 50, bicarb 23 Viral panel negative, MRSA screen pending, On arrival to the ED, labs remarkable for WBC 17, hemoglobin 9.7, NA 135, BUN 49, anion gap 13, creatinine 5.5, lactate 3.0, glucose 269, magnesium 1.6, troponin 66.9baseline, procalcitonin 8.73 Chest x-ray showed right lower lobe pneumonia The patient was given IV antibiotics, 500 L fluid bolus and will be admitted for further management of right lower lobe pneumonia and respiratory failure Admission Exam Per Admitting Provider please refer to her notes for full details patient seen and examined, records reviewed by myself as well on exam, patient seen resting in bed, on Bipap not in distress, comfortable alert, oriented x 3, conversant states she feels improved since arrival and initiation of Bipap reports productive cough no other symptoms Principal Diagnosis Pneumonia, end-stage renal disease on hemodialysis Discharge Exam Lying in bed without any acute distress Constitutional well developed, well nourished, + ill appearing and + obese Eyes PERRL, conjunctivae normal, anicteric sclerae ENMT external ear and nose normal, oropharynx normal Neck trachea midline, no thyromegaly Respiratory no respiratory distress Auscultation: + crackles (Crackles bibasilarly more on the right than the left) and + wheezes (Occasional wheezing bilaterally) Cardiovascular Rate/Rhythm: regular rate and regular rhythm; not tachycardic Heart Sounds: normal S1 and normal S2; no murmur Extremities: no edema Gastrointestinal (Abdomen) Inspection/Auscultation: normal bowel sounds; abdomen not distended Percussion/Palpation: abdomen soft; abdomen nontender Neurologic normal touch/pain/proprioception and moves all extremities; no focal motor deficits Lymphatic no cervical or axillary lymphadenopathy Discharge Data Allergies Allergy/AdvReac Type Severity Reaction Status Date / Time No Known Allergies Allergy Verified 08/19/24 13:29 Consultations 01/18/25 11:46 ED Decision to Admit Stat 01/18/25 15:16 Consult Nephrology Routine Consult Pulmonology Routine 01/19/25 11:10 Consult Infectious Diseases Routine Ordered Studies 01/21/25 15:00 CT chest diagnostic wo con Stat Hospital Course (1) Sleep apnea: (2) History of pneumonia: (3) Hyperlipidemia: (4) Depression: (5) History of non-ST elevation myocardial infarction (NSTEMI): (6) Type 2 diabetes mellitus: Plan 74-year-old female who presented to the ER 01/18/25 with hypoxia, shortness of breath that started overnight. She is being managed for the following: Acute hypoxic respiratory failure Right lower lobe pneumonia: Gram neg bacteremia: Symptoms started overnight ROUGH ROUNDER, found to have fever of 100 F Hypoxic in the 70s on room air, improved on BiPAP on arrival to the ED VBG with mild acidosis on arrival, chest x-ray with right lower lobe pneumonia, viral panel negative Blood cultures - H influenzae, MRSA screen neg, H influenzae positive. - Switched zosyn 01/18 to rocephin 01/20 -- to unasyn 01/21---now on zosyn per pulm due to worsening of her symptoms with increasing procalcitonin - Pulm evaled, follow further recs c/w Nebulizers, wean down O2 as anatoliy. No home O2 need ROUGH ROUNDER. - ID evaled, appreciate recs. - Pt reports overall feeling better, cough slightly better, wbc gradually trending down Clinically not any worse with ongoing cough but no shortness of breath and remains very tired Procalcitonin will be checked tomorrow and if improved will get PT and OT evaluation for possible discharge in a day or 2 Procalcitonin has reduced to 14 and white count is improving too She remains extremely weak and lethargic and does not feel like that she could go home tomorrow PT recommended rehab but the patient refused Remains generally weak and lethargic otherwise symptoms are much improved Likely to be discharged tomorrow and will need to have 2 steps O2 saturation test prior to discharge Remains medically stable with much improvement of her general condition Remains medically stable with decreased symptoms Has had 2 steps O2 saturation test and she does not require any oxygen but her oxygen level dropped at rest and also while sleeping Will have nocturnal pulse oximetry prior to discharge likely tomorrow Remains medically stable with minimal cough but no shortness of breath Nocturnal pulse oximetry did not show any requirement of oxygen She will be discharged this afternoon to personal care facility and her course of antibiotic was finished. Hx ESRD on HD: Consult nephrology, normal dialysis days Monday//sat Has had dialysis today and will have next dialysis on Monday as per the patient Does not have any symptoms of fluid overload Will continue with hemodialysis as per hospitality internship Renal hemodialysis tomorrowif she feels better following hemodialysis will be discharged Will continue with hemodialysis as per hospitality internship Strongly advised to continue with dialysis as an outpatient Hx LINDSEY -does not use CPAP at home, unable to tolerate Hx DM: Managed on Toujeo/lispro SSI/4 times daily BGM, recheck A1C - 5.1 Depression: Continue fluoxetine Hx GERD: Continue omeprazole Full code DVT prophylaxis: hep sub - q PT/OT, CM to assist w/ dc plan Total Time Total Time Spent Total Time Spent (In Minutes): 40 Minutes Discharge Plan Discharge Items Patient Disposition: Personal Intermediate Reason For Visit: PNA, SHORTNESS OF BREATH Discharge Diagnosis: Pneumonia, end-stage renal disease on hemodialysis Condition on Discharge: Fair Activity: Resume your previous activity Non-emergency contact: Primary Care Provider Call non-emergency contact if: you have any medication questions and your symptoms worsen Follow-up/Referrals: Charan Leroy M.D. [Outside Practitioners] - (Date & Time 01/30/2025 2:20 PM Provider: Charan Leroy MD [facility] ) Diet: Carb Consistent or DM2 and Heart Healthy Fluids: 1800ml (7 cups) Addtl Attending Provider Instructions: Please take precautions to avoid falls Keep taking your medications as advised New medicine will be Robitussin DM which is [id number] cough medicine or you can take any other cough suppressants [id number] Please continue with your hemodialysis schedule as an outpatient Please keep appointments with your healthcare providers Pending Studies at Discharge: No Stand-Alone Forms: My [employer], Smoking Cessation Skilled Items Patient informed of condition?: Yes DNR: No Discharge Level of Care: Other Communicable Disease: No Discharge Prognosis: Stable Lines: None Urinary Catheter: No Medications and DC Order Prescriptions: New dextromethorphan-guaifenesin [Robitussin Cough-Chest Monster DM] 5-100 mg/5 mL liquid 10 ml PO Q6H PRN (Reason: cough) Qty: 500 0RF Continued cyanocobalamin (vitamin B-12) [Vitamin B-12] 500 mcg Tablet 500 mcg PO QAM acetaminophen [Tylenol] 325 mg Tablet 325 mg PO Q6H PRN (Reason: Pain) omega-3 fatty acids 1,000 mg Capsule 1,000 mg PO QAM fluticasone propionate 50 mcg/actuation [place],Suspension 2 spray INTRANASAL QAM Rx Instructions: administer into each nostril rosuvastatin 10 mg tablet 10 mg PO HS cetirizine [Zyrtec] 10 mg Tablet 10 mg PO QAM omeprazole 40 mg capsule,delayed release(DR/EC) 40 mg PO QAM insulin glargine U-300 conc [Toujeo SoloStar U-300 Insulin] 300 unit/mL (1.5 mL) insulin pen 3 unit SUBCUT QPM cholecalciferol (vitamin D3) [Vitamin D3] 125 mcg (5,000 unit) Tablet 125 mcg PO QAM insulin lispro [Humalog KwikPen Insulin] 100 unit/mL insulin pen 5 unit SUBCUT AC Rx Instructions: IF BSG IS > 200. CALL MD IF BSG IS <70 OR >300. fluoxetine 40 mg capsule 40 mg PO DAILY Rx Instructions: TOTAL 50MG ondansetron HCl 4 mg tablet 4 mg PO Q8H PRN (Reason: Nausea) aspirin 81 mg Tablet,Delayed Release (Dr/Ec) 81 mg PO DAILY magnesium hydroxide [Milk of Magnesia] 400 mg/5 mL Suspension 30 ml PO DAILY PRN (Reason: Constipation) fluoxetine 10 mg capsule 10 mg PO DAILY Rx Instructions: TOTAL 50 MG sevelamer carbonate 800 mg tablet 800 mg PO TIDWMEAL Daily Multi-Vitamin 1 tab PO DAILY Discharge Orders: Discharge Order (Routine); Ordered 01/27/25 Ordered By: Manny Pardo/Other Patient Handouts: Chest and Lung Problems, What Are Snoring and Sleep Apnea?, CPAP Admission Data Admit Date/Time: 01/18/25 12:21 Attending Provider: Manny Echevarria Admit Provider: Lane England Primary Care Provider: Ghada Salazar Other Providers: Lane England; Taniya Weems; Bandar Juarez; Nate Boucher; Erica Sams; Markus Bergman I.; Anthony Crowell II; Socorro Ortiz; Mina Riggins; Fabien Catherine; Oni Underwood; Zeynep Cassidy Other Interventions: Discharge Summary Assessment (RN) Last Done: 01/27/25 13:13
--- NOTE | 2025-01-29 09:15 | Pharmacy Report ---
ED Pharmacist Culture FollowUP - Culture Follow Up Note Date of Service: January 29, 2025 Notes:: Received print out of Blood culture from 01/18 finalized- sensitivities per reference lab in scanned report. Hospitalist aware of blood culture prior to discharge. No ED action.
== END 2025-01-27 16:04 | disposition home or self-care (01) | DRG 871 ==
LOC: ED 10:42 → SUATTDRO 12:21 → 4W 12:21 → 2S 01-20 10:46